=== PATIENT | female | born 1965 | race Caucasian/White ===

== ENCOUNTER 2016-08-28 18:34 | Emergency (ER) | payer MEDICARE ==
[2016-08-28 18:49] VITALS: BP 155/68; PULSE 72; O2SAT 97
[2016-08-28] MEDS ORDERED: Nubain 10 MG/ML IM ONE (19:12)
[2016-08-28] MEDS ORDERED: ZOFRAN ODT 4 MG PO ONE (19:12)
--- NOTE | 2016-08-28 19:16 | ERPHSYRPT ---
- History of Present Illness Time Seen by Provider: 08/28/16 19:11 Source: patient, family Patient Subjective Stated Complaint: migraine headache x7 days Triage Nursing Assessment: patient states she has had migraine x7 days tried using tylenol and bendryll at home as well as continued oxygen use nothing has helped. also has ringing in the ears and her surgar is elevated but she gave herself a shot before coming in and it takes 4 hrs to bring that down. pt alert and orientedx3, pulses equal bilat radius, lung sounds diminished. strength equal bialteral upper extremities and smile symetrical Physician History: CC: headache hx; Headache similar to prior for 7 days not relieved with home treatments. No fever. She has photophobia. No N/T/W. She has DM which is sometimes poorly controlled. No injury. She has used nubain and zofran in the past. Timing/Duration: day(s) (7) Allergies/Adverse Reactions: adhesive Allergy (Intermediate, Verified 02/24/16 15:39) Rash ciprofloxacin HCl [From Cipro] Allergy (Intermediate, Verified 02/24/16 15:39) Rash gatifloxacin [From Tequin] Allergy (Intermediate, Verified 02/24/16 15:39) Rash levofloxacin [From Levaquin] Allergy (Intermediate, Verified 02/24/16 15:39) Rash aspirin Allergy (Verified 02/24/16 15:39) bupropion HCl [From Wellbutrin] Allergy (Verified 02/24/16 15:39) cefaclor [From Ceclor] Allergy (Verified 02/24/16 15:39) ceftibuten dihydrate [From Cedax] Allergy (Verified 02/24/16 15:39) cephalexin monohydrate [From Keflex] Allergy (Verified 02/24/16 15:39) clarithromycin [From Biaxin] Allergy (Verified 02/24/16 15:39) clotrimazole [From Lotrimin] Allergy (Verified 02/24/16 15:39) codeine [Codeine] Allergy (Verified 02/24/16 15:39) erythromycin base [Erythromycin Base] Allergy (Verified 02/24/16 15:39) hydromorphone HCl [From Dilaudid] Allergy (Verified 02/24/16 15:39) ketorolac tromethamine [From Toradol] Allergy (Verified 02/24/16 15:39) loracarbef [From Lorabid] Allergy (Verified 02/24/16 15:39) meperidine HCl [From Demerol] Allergy (Verified 02/24/16 15:39) morphine Allergy (Verified 02/24/16 15:39) Norgestimate-Ethi *RETIRED-07/08/12 [From Ortho Tri-Cyclen (21)] Allergy ( Verified 02/24/16 15:39) Penicillins Allergy (Verified 02/24/16 15:39) prochlorperazine edisylate [From Compazine] Allergy (Verified 02/24/16 15:39) promethazine HCl [From Phenergan] Allergy (Verified 02/24/16 15:39) Sulfa (Sulfonamide Antibiotics) [Sulfa(Sulfonamide Antibiotics)] Allergy ( Verified 02/24/16 15:39) sumatriptan [From Imitrex] Allergy (Verified 02/24/16 15:39) water [From Eucerin] Allergy (Verified 02/24/16 15:39) Home Medications: Albuterol Sulfate [Proair Hfa] 2 puff IH QID 10/10/15 [History] Apixaban [Eliquis] 2.5 mg PO BID 10/10/15 [History] Budesonide/Formoterol Fumarate [Symbicort 160-4.5 Mcg Inhaler] 2 puff IH BID [History] Bumetanide [Bumex] 2 mg PO BID 10/10/15 [History] Cholecalciferol (Vitamin D3) [Vitamin D3] 2,000 unit PO DAILY 10/10/15 [History] Famotidine 40 mg PO BID 10/10/15 [History] Fenofibrate 160 mg PO DAILY 10/10/15 [History] Fluticasone Propionate [Flonase NASAL] 1 gm NS BID 10/10/15 [History] Insulin Regular, Human [Humulin R] 1 unit SQ .PRN 10/10/15 [History] Montelukast Sodium 10 mg PO DAILY 10/10/15 [History] Naloxegol Oxalate [Movantik] 25 mg PO DAILY 10/10/15 [History] Nitroglycerin 0.4 mg Tablet [Nitrostat 0.4 MG Tablet] 0.4 mg SL Q5MIN PRN MR X 3 PRN 10/10/15 [History] PANTOPRAZOLE 40 mg Tablet [Protonix 40MG Tablet] 40 mg PO DAILY 10/10/15 [ History] Polyethylene Glycol 3350 17 gm [Miralax Powder 17GM PACKET] 17 gm PO UD 10/09 [History] Potassium Chloride 20 Meq [Klor-Con 20 MEQ] 20 meq PO DAILY 10/10/15 [History] Rosuvastatin Calcium [Crestor] 40 mg PO HS 10/10/15 [History] Verapamil HCl [Verapamil ER] 240 mg PO DAILY 10/10/15 [History] Divalproex Sodium [Divalproex Sodium ER] 2 tab PO DAILY 03/06/16 [History] Ferrous Sulfate 325 mg [Feosol 325 mg] 1 tab PO DAILY 03/06/16 [History] Levothyroxine Sodium 112 Mcg [Synthroid 112 Mcg] 1 tab PO DAILY 03/06/16 [ History] Macitentan [Opsumit] 1 tab PO DAILY 03/06/16 [History] Vilazodone Hydrochloride [Viibryd] 40 mg PO 03/06/16 [History] Zolpidem Tartrate 10 mg PO HS 03/06/16 [History] Hx Tetanus, Diphtheria Vaccination/Date Given: Yes Hx Influenza Vaccination/Date Given: Yes Hx Pneumococcal Vaccination/Date Given: Yes Immunizations Up to Date: Yes - Review of Systems Constitutional: No Fever, No Chills Eyes: Photophobia, No Vision Changes Ears, Nose, & Throat: No Symptoms Respiratory: No Symptoms Abdominal/Gastrointestinal: Nausea Genitourinary Symptoms: No Symptoms Musculoskeletal: No Symptoms Skin: No Symptoms, No Rash Neurological: Headache, No Focal Weakness, No Parasthesia All Other Systems: Reviewed and Negative - Past Medical History Pertinent Past Medical History: Yes Neurological History: Migraines ENT History: Cataracts Cardiac History: Congestive Heart Failure, High Cholesterol, Hypertension Respiratory History: Asthma, COPD Endocrine Medical History: Diabetes Type II, Hypothyroidism, Other Musculoskeletal History: Arthritis, Fibromyalgia GI Medical History: Esophageal Disorder History: Renal Disease Psycho-Social History: Bipolar, Depression Other Medical History: FIBROMYALGIA, BLIND IN LEFT EYE. BACK PROBLEMS, Sciatica. Renal insuff - Past Surgical History Past Surgical History: Yes Neuro Surgical History: Other Cardiac: Cardiac Catheterization Gastrointestinal: Cholecystectomy Genitourinary: No Pertinent History Musculoskeletal: No Pertinent History, Orthopedic Surgery Female Surgical History: Hysterectomy Other Surgical History: carpal tunnel, trigger finger, tendon on right arm, ulnar nerve surgery, clipped left eye muscle - Social History Smoking Status: Current every day smoker How long have you smoked: 40 Exposure to second hand smoke: Yes Drug Use: none Patient Lives Alone: No - Female History Hx Now: No - Nursing Vital Signs Nursing Vital Signs: Initial Vital Signs Temperature 99.5 F Temperature Source Oral Pulse Rate 72 Respiratory Rate 20 Blood Pressure [Right Arm] 155/68 Pain Intensity 8 - Physical Exam General Appearance: alert, obese Eye Exam: PERRL/EOMI Ears, Nose, Throat Exam: moist mucous membranes Neck Exam: normal inspection, non-tender, supple Respiratory Exam: normal breath sounds Cardiovascular Exam: regular rate/rhythm Gastrointestinal/Abdominal Exam: soft, No tenderness, No distention Extremity Exam: normal inspection, 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 of motion 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, 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, cooperative Motor/Sensory Exam: no motor deficit, no sensory deficit Skin Exam: warm, dry, No rash SpO2 Interpretation: normal SpO2: 97 Oxygen Delivery: Room Air - Course Nursing assessment & vital signs reviewed: Yes Ordered Tests: Active Orders 24 hr Category Date Time Status ACCUCHECK [Accucheck] STAT Care 08/28/16 19:16 Active Medication Summary Discontinued Medications Generic Name Dose Route Start Last Admin Trade Name Bety PRN Reason Stop Dose Admin Nalbuphine HCl 10 mg 08/28/16 19:12 08/28/16 19:21 Nubain 10 Mg/Ml IM 08/28/16 19:13 10 mg STAT ONE Administration Nalbuphine HCl Confirm 08/28/16 19:17 Nubain 10 Mg/Ml Administered 08/28/16 19:18 Dose 10 mg .ROUTE .STK-MED ONE Ondansetron HCl 4 mg 08/28/16 19:12 08/28/16 19:21 Zofran Odt 4 Mg PO 08/28/16 19:13 4 mg STAT ONE Administration Ondansetron HCl Confirm 08/28/16 19:17 Zofran Odt 4 Mg Administered 08/28/16 19:18 Dose 4 mg .ROUTE .STK-MED ONE - Progress Progress Note: 08/28/16 19:16 Will give nubain and zofran as prior. Counseled pt/family regarding: diagnosis, need for follow-up - Departure Time of Disposition: 19:25 Departure Disposition: Home Clinical Impression: Headache Condition: Stable Critical Care Time: No Referrals: DAVE ARZOLA [Primary Care Provider] - Instructions: Headache Additional Instructions: HEADACHE 1. After discharge from the emergency department, you should rest at home in a cool, dark, quiet place for 12-24 hours. 2. If any of the following signs or symptoms are noticed, you should be re- evaluated right away: A. Visual changes B. Stiff Neck C. Change in quality or location of pain D. Fever E. Recurrent vomiting 3. If pain medications were prescribed or given, they may cause drowsiness. No driving tonite. Stay with family. Follow up with Dr arzola.
[2016-08-28] MEDS ORDERED: ZOFRAN ODT 4 MG ONE (19:17)
[2016-08-28] MEDS ORDERED: Nubain 10 MG/ML ONE (19:17)
== END 2016-08-28 19:50 | disposition home or self-care (01) ==
LOC: ED 18:34
DX: R51 Headache (principal); R11.0 Nausea; I50.9 Heart failure, unspecified; I10 Essential (primary) hypertension; E78.00 Pure hypercholesterolemia, unspecified; E11.9 Type 2 diabetes mellitus without complications; E03.9 Hypothyroidism, unspecified; Z79.899 Other long term (current) drug therapy; Z79.84 Long term (current) use of oral hypoglycemic drugs; Z79.4 Long term (current) use of insulin; Z79.01 Long term (current) use of anticoagulants
CPT/HCPCS: 82962; 96372; 99283; 99284; J2300; Q0162

== ENCOUNTER 2016-11-19 15:11 | Emergency (ER) | payer MEDICARE ==
[2016-11-19 15:39] VITALS: BP 106/46; PULSE 85; O2SAT 97
[2016-11-19] MEDS ORDERED: Sodium Chloride 0.9% 1000 ML 1,000 ML IV STA (15:40)
--- NOTE | 2016-11-19 15:47 | ERPHSYRPT ---
- History of Present Illness Time Seen by Provider: 11/19/16 15:33 Source: patient Exam Limitations: no limitations Patient Subjective Stated Complaint: states that she was told to come to the ER from her doctor. had appointment with her kidney doctor today but did not go. states her insulin pump fell off last night and she did not replace. today feels bad. dizzy and just feeling bad. unable to state how long. Triage Nursing Assessment: alert and 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. congested cough. congested lungs. oxygen on at 2LNC daily use. states just feels bad. she was unable to go to her doctor as scheduled since feeling bad. able to ambulate to bed per self. Physician History: 51 year old female with type 2 diabetes on insulin pump and chronic kidney disease reports to ER. She states she had labs on 11/15 and blood sugar was over 700 and sodium was 120, she was unable to consult with her kidney specialist who ordered those labs at the time. she was supposed to see him in the office today but states she felt poorly and was unable to go. she has vague complaints , states she feels dizzy, lightheaded and mildly short of breath. when I asked about her blood sugar management she states she took her pump off yesterday and didn't put it back on because she didn't feel like it nor has she checked her blood sugar today because she didn't feel like doing that either. Timing/Duration: day(s) Associated Symptoms: shortness of breath, weakness, No nausea, No vomiting, No abdominal pain, No diaphoresis, No cough, No chest pain, No fever, No syncope Allergies/Adverse Reactions: adhesive Allergy (Intermediate, Verified 11/19/16 15:40) Rash ciprofloxacin HCl [From Cipro] Allergy (Intermediate, Verified 11/19/16 15:40) Rash gatifloxacin [From Tequin] Allergy (Intermediate, Verified 11/19/16 15:40) Rash levofloxacin [From Levaquin] Allergy (Intermediate, Verified 11/19/16 15:40) Rash aspirin Allergy (Verified 11/19/16 15:40) bupropion HCl [From Wellbutrin] Allergy (Verified 11/19/16 15:40) cefaclor [From Ceclor] Allergy (Verified 11/19/16 15:40) ceftibuten dihydrate [From Cedax] Allergy (Verified 11/19/16 15:40) cephalexin monohydrate [From Keflex] Allergy (Verified 11/19/16 15:40) clarithromycin [From Biaxin] Allergy (Verified 11/19/16 15:40) clotrimazole [From Lotrimin] Allergy (Verified 11/19/16 15:40) codeine [Codeine] Allergy (Verified 11/19/16 15:40) erythromycin base [Erythromycin Base] Allergy (Verified 11/19/16 15:40) hydromorphone HCl [From Dilaudid] Allergy (Verified 11/19/16 15:40) ketorolac tromethamine [From Toradol] Allergy (Verified 11/19/16 15:40) loracarbef [From Lorabid] Allergy (Verified 11/19/16 15:40) meperidine HCl [From Demerol] Allergy (Verified 11/19/16 15:40) morphine Allergy (Verified 11/19/16 15:40) Norgestimate-Ethi *RETIRED-07/08/12 [From Ortho Tri-Cyclen (21)] Allergy ( Verified 11/19/16 15:40) Penicillins Allergy (Verified 11/19/16 15:40) prochlorperazine edisylate [From Compazine] Allergy (Verified 11/19/16 15:40) promethazine HCl [From Phenergan] Allergy (Verified 11/19/16 15:40) Sulfa (Sulfonamide Antibiotics) [Sulfa(Sulfonamide Antibiotics)] Allergy ( Verified 11/19/16 15:40) sumatriptan [From Imitrex] Allergy (Verified 11/19/16 15:40) water [From Eucerin] Allergy (Verified 11/19/16 15:40) Home Medications: Albuterol Sulfate [Proair Hfa] 2 puff IH QID 10/10/15 [History] Apixaban [Eliquis] 2.5 mg PO BID 10/10/15 [History] Budesonide/Formoterol Fumarate [Symbicort 160-4.5 Mcg Inhaler] 2 puff IH BID [History] Bumetanide [Bumex] 2 mg PO BID 10/10/15 [History] Cholecalciferol (Vitamin D3) [Vitamin D3] 2,000 unit PO DAILY 10/10/15 [History] Famotidine 40 mg PO BID 10/10/15 [History] Fenofibrate 160 mg PO DAILY 10/10/15 [History] Fluticasone Propionate [Flonase NASAL] 1 gm NS BID 10/10/15 [History] Insulin Regular, Human [Humulin R] 1 unit SQ .PRN 10/10/15 [History] Montelukast Sodium 10 mg PO DAILY 10/10/15 [History] Naloxegol Oxalate [Movantik] 25 mg PO DAILY 10/10/15 [History] Nitroglycerin 0.4 mg Tablet [Nitrostat 0.4 MG Tablet] 0.4 mg SL Q5MIN PRN MR X 3 PRN 10/10/15 [History] PANTOPRAZOLE 40 mg Tablet [Protonix 40MG Tablet] 40 mg PO DAILY 10/10/15 [ History] Polyethylene Glycol 3350 17 gm [Miralax Powder 17GM PACKET] 17 gm PO UD 10/09 [History] Potassium Chloride 20 Meq [Klor-Con 20 MEQ] 20 meq PO DAILY 10/10/15 [History] Rosuvastatin Calcium [Crestor] 40 mg PO HS 10/10/15 [History] Verapamil HCl [Verapamil ER] 240 mg PO DAILY 10/10/15 [History] Divalproex Sodium [Divalproex Sodium ER] 2 tab PO DAILY 03/06/16 [History] Ferrous Sulfate 325 mg [Feosol 325 mg] 1 tab PO DAILY 03/06/16 [History] Levothyroxine Sodium 112 Mcg [Synthroid 112 Mcg] 1 tab PO DAILY 03/06/16 [ History] Macitentan [Opsumit] 1 tab PO DAILY 03/06/16 [History] Vilazodone Hydrochloride [Viibryd] 40 mg PO DAILY 03/06/16 [History] Zolpidem Tartrate 10 mg PO HS 03/06/16 [History] Hx Tetanus, Diphtheria Vaccination/Date Given: Yes Hx Influenza Vaccination/Date Given: Yes Hx Pneumococcal Vaccination/Date Given: Yes - Review of Systems Constitutional: Weakness, No Fever, No Chills Ears, Nose, & Throat: No Symptoms Respiratory: Dyspnea, No Cough, No Wheezing Cardiac: No Chest Pain, No Edema, No Syncope Abdominal/Gastrointestinal: No Abdominal Pain, No Nausea, No Vomiting, No Diarrhea Genitourinary Symptoms: No Dysuria Skin: No Rash Neurological: Dizziness, No Focal Weakness, No Gait Changes, No Headache, No Sensory Changes, No Speech Changes, No Vertigo Psychological: No Alcohol Abuse, No Drug Abuse All Other Systems: Reviewed and Negative - Past Medical History Pertinent Past Medical History: Yes Neurological History: Migraines ENT History: Cataracts Cardiac History: Congestive Heart Failure, High Cholesterol, Hypertension Respiratory History: Asthma, COPD Endocrine Medical History: Diabetes Type II, Hypothyroidism, Other Musculoskeletal History: Arthritis, Fibromyalgia GI Medical History: Esophageal Disorder History: Renal Disease Psycho-Social History: Bipolar, Depression Other Medical History: FIBROMYALGIA, BLIND IN LEFT EYE. BACK PROBLEMS, Sciatica. Renal insuff - Past Surgical History Past Surgical History: Yes Neuro Surgical History: Other Cardiac: Cardiac Catheterization Gastrointestinal: Cholecystectomy Genitourinary: No Pertinent History Musculoskeletal: No Pertinent History, Orthopedic Surgery Female Surgical History: Hysterectomy Other Surgical History: carpal tunnel, trigger finger, tendon on right arm, ulnar nerve surgery, clipped left eye muscle - Social History Smoking Status: Current every day smoker How long have you smoked: 40 Exposure to second hand smoke: No Drug Use: none Patient Lives Alone: Yes - Female History Hx Now: No - Nursing Vital Signs Nursing Vital Signs: Initial Vital Signs Temperature 98.9 F 11/19/16 15:30 Pulse Rate 85 11/19/16 15:30 Respiratory Rate 22 11/19/16 15:30 Blood Pressure 106/46 11/19/16 15:30 O2 Sat by Pulse Oximetry 97 11/19/16 15:30 Pain Scale Pain Intensity 5 - Physical Exam General Appearance: no apparent distress, alert, obese Respiratory Exam: normal breath sounds, lungs clear, No respiratory distress Cardiovascular Exam: regular rate/rhythm, normal heart sounds, normal peripheral pulses Gastrointestinal/Abdomen Exam: soft, normal bowel sounds, No tenderness, No mass Extremity Exam: normal inspection, 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 of motion, pelvis stable Neurologic Exam: alert, 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, cooperative, normal mood/affect, nml cerebellar function, nml station & gait, sensation nml, No motor deficits Skin Exam: normal color, warm, dry, No rash SpO2 Interpretation: normal SpO2: 97 Oxygen Delivery: Nasal Cannula Ordered Tests: Active Orders 24 hr Category Date Time Status Accucheck STAT Care 11/19/16 15:40 Active Clean Catch Urine Specimen STAT Care 11/19/16 15:47 Active EKG-ER Only STAT Care 11/19/16 15:40 Active IV Insertion STAT Care 11/19/16 15:40 Active Medication Summary Discontinued Medications Generic Name Dose Route Start Last Admin Trade Name Freq PRN Reason Stop Dose Admin Sodium Chloride 1,000 mls @ 999 mls/hr 11/19/16 15:40 Sodium Chloride 0.9% 1000 Ml IV 11/19/16 16:40 .Q1H1M STA - Progress Progress Note: 11/20/16 08:29 late entry, during course of workup patient became agitated, refused blood draw , got dressed and left the department despite nursing attempts to urge her to cooperate - Departure Time of Disposition: 15:30 Departure Disposition: AMA Clinical Impression: Renal insufficiency, Chronic pain syndrome Condition: Stable Critical Care Time: No Referrals: DAVE ARZOLA [Primary Care Provider] -
== END 2016-11-19 15:55 | disposition left against medical advice (07) ==
LOC: ED 15:11
DX: N28.9 Disorder of kidney and ureter, unspecified (principal); G89.4 Chronic pain syndrome; E11.9 Type 2 diabetes mellitus without complications; R53.1 Weakness; R06.00 Dyspnea, unspecified; R42 Dizziness and giddiness; I50.9 Heart failure, unspecified; E78.5 Hyperlipidemia, unspecified; I10 Essential (primary) hypertension; J45.909 Unspecified asthma, uncomplicated; J44.9 Chronic obstructive pulmonary disease, unspecified; Z79.899 Other long term (current) drug therapy
CPT/HCPCS: 99281

== ENCOUNTER 2017-02-05 17:36 | Emergency (ER) | payer MEDICARE ==
[2017-02-05] MEDS ORDERED: Nubain 10 MG/ML IM ONE (18:25)
[2017-02-05] MEDS ORDERED: ZOFRAN ODT 4 MG PO ONE (18:25)
[2017-02-05] MEDS ORDERED: ZOFRAN ODT 4 MG ONE (18:27)
[2017-02-05] MEDS ORDERED: Nubain 10 MG/ML ONE (18:28)
--- NOTE | 2017-02-05 18:30 | ERPHSYRPT ---
- History of Present Illness Time Seen by Provider: 02/05/17 18:22 Source: patient Exam Limitations: no limitations Patient Subjective Stated Complaint: headache starting an hour ago with nausea. took tylenol without relief. Triage Nursing Assessment: to room per w/c. skin w/d, color normal, resp easy. has dark glasses on. holding forehead. a/o times three. Physician History: 51-year-old white female with history of migraines and multiple medical complaints. Arrives with complaint of frontal headache nausea and photophobia symptoms for one hour. She has not had any fevers. Past medical history includes migraines, cataracts, congestive heart failure, hyperlipidemia, high blood pressure, asthma, COPD, diabetes, hypothyroidism, esophageal disorder, arthritis, fibromyalgia, renal disease, bipolar depression Patient states she is blind in her left eye she has chronic back pain and sciatica Past surgical history includes cardiac , catheterization, cholecystectomy, orthopedic surgery, carpal tunnel, ulnar nerve surgery, trigger finger surgery, tendon on the patient's right arm Timing/Duration: today (one hour prior to arrival) Severity: moderate Modifying Factors: Improves With: acetaminophen Associated Symptoms: nausea, other (headache and photophobia), No vomiting, No abdominal pain, No shortness of breath, No heartburn, No diaphoresis, No cough, No chills, No chest pain, No fever, No headaches, No loss of appetite, No malaise, No rash, No syncope, No seizure, No weakness Allergies/Adverse Reactions: adhesive Allergy (Intermediate, Verified 02/05/17 17:51) Rash ciprofloxacin HCl [From Cipro] Allergy (Intermediate, Verified 02/05/17 17:51) Rash gatifloxacin [From Tequin] Allergy (Intermediate, Verified 02/05/17 17:51) Rash levofloxacin [From Levaquin] Allergy (Intermediate, Verified 02/05/17 17:51) Rash aspirin Allergy (Verified 02/05/17 17:51) bupropion HCl [From Wellbutrin] Allergy (Verified 02/05/17 17:51) cefaclor [From Ceclor] Allergy (Verified 02/05/17 17:51) ceftibuten dihydrate [From Cedax] Allergy (Verified 02/05/17 17:51) cephalexin monohydrate [From Keflex] Allergy (Verified 02/05/17 17:51) clarithromycin [From Biaxin] Allergy (Verified 02/05/17 17:51) clotrimazole [From Lotrimin] Allergy (Verified 02/05/17 17:51) codeine [Codeine] Allergy (Verified 02/05/17 17:51) erythromycin base [Erythromycin Base] Allergy (Verified 02/05/17 17:51) hydromorphone HCl [From Dilaudid] Allergy (Verified 02/05/17 17:51) ketorolac tromethamine [From Toradol] Allergy (Verified 02/05/17 17:51) loracarbef [From Lorabid] Allergy (Verified 02/05/17 17:51) meperidine HCl [From Demerol] Allergy (Verified 02/05/17 17:51) morphine Allergy (Verified 02/05/17 17:51) Norgestimate-Ethi *RETIRED-07/08/12 [From Ortho Tri-Cyclen (21)] Allergy ( Verified 02/05/17 17:51) Penicillins Allergy (Verified 02/05/17 17:51) prochlorperazine edisylate [From Compazine] Allergy (Verified 02/05/17 17:51) promethazine HCl [From Phenergan] Allergy (Verified 02/05/17 17:51) Sulfa (Sulfonamide Antibiotics) [Sulfa(Sulfonamide Antibiotics)] Allergy ( Verified 02/05/17 17:51) sumatriptan [From Imitrex] Allergy (Verified 02/05/17 17:51) water [From Eucerin] Allergy (Verified 02/05/17 17:51) Home Medications: Albuterol Sulfate [Proair Hfa] 2 puff IH QID 10/10/15 [History] Apixaban [Eliquis] 2.5 mg PO BID 10/10/15 [History] Budesonide/Formoterol Fumarate [Symbicort 160-4.5 Mcg Inhaler] 2 puff IH BID [History] Bumetanide [Bumex] 2 mg PO BID 10/10/15 [History] Cholecalciferol (Vitamin D3) [Vitamin D3] 2,000 unit PO DAILY 10/10/15 [History] Famotidine 40 mg PO BID 10/10/15 [History] Fenofibrate 160 mg PO DAILY 10/10/15 [History] Fluticasone Propionate [Flonase NASAL] 1 gm NS BID 10/10/15 [History] Insulin Regular, Human [Humulin R] 1 unit SQ .PRN 10/10/15 [History] Montelukast Sodium 10 mg PO DAILY 10/10/15 [History] Naloxegol Oxalate [Movantik] 25 mg PO DAILY 10/10/15 [History] Nitroglycerin 0.4 mg Tablet [Nitrostat 0.4 MG Tablet] 0.4 mg SL Q5MIN PRN MR X 3 PRN 10/10/15 [History] PANTOPRAZOLE 40 mg Tablet [Protonix 40MG Tablet] 40 mg PO DAILY 10/10/15 [ History] Polyethylene Glycol 3350 17 gm [Miralax Powder 17GM PACKET] 17 gm PO UD 10/09 [History] Potassium Chloride 20 Meq [Klor-Con 20 MEQ] 20 meq PO DAILY 10/10/15 [History] Rosuvastatin Calcium [Crestor] 40 mg PO HS 10/10/15 [History] Verapamil HCl [Verapamil ER] 240 mg PO DAILY 10/10/15 [History] Divalproex Sodium [Divalproex Sodium ER] 2 tab PO DAILY 03/06/16 [History] Ferrous Sulfate 325 mg [Feosol 325 mg] 1 tab PO DAILY 03/06/16 [History] Levothyroxine Sodium 112 Mcg [Synthroid 112 Mcg] 1 tab PO DAILY 03/06/16 [ History] Macitentan [Opsumit] 1 tab PO DAILY 03/06/16 [History] Vilazodone Hydrochloride [Viibryd] 40 mg PO DAILY 03/06/16 [History] Zolpidem Tartrate 10 mg PO HS 03/06/16 [History] Hx Tetanus, Diphtheria Vaccination/Date Given: Yes Hx Influenza Vaccination/Date Given: Yes Hx Pneumococcal Vaccination/Date Given: Yes - Review of Systems Constitutional: No Fever, No Chills Eyes: Photophobia, No Discharge, No Eye Pain, No Eye Redness, No Itchy, No Tearing, No Vision Changes, No Double Vision, No Foreign Body Sensation Ears, Nose, & Throat: No Symptoms, No Ear Pain, No Ear Discharge, No Hearing Changes, No Tinnitus, No Nose Pain, No Nose Congestion, No Nose Discharge, No Sinus Drainage, No Epistaxis, No Mouth Pain, No Mouth Swelling, No Loose Teeth, No Throat Pain, No Throat Swelling, No Hoarse, No Painful Swallowing, No Snoring , No Stridor Respiratory: No Cough, No Dyspnea Cardiac: No Chest Pain, No Edema, No Syncope Abdominal/Gastrointestinal: No Abdominal Pain, No Nausea, No Vomiting, No Diarrhea Genitourinary Symptoms: No Dysuria Musculoskeletal: No Back Pain, No Neck Pain Neurological: Headache, No Dizziness, No Focal Weakness, No Gait Changes, No Irritability, No Lethargy, No Paralysis, No Parasthesia, No Seizure, No Sensory Changes, No Speech Changes, No Tics, No Tremors, No Vertigo Psychological: No Symptoms Endocrine: No Symptoms All Other Systems: Reviewed and Negative - Past Medical History Pertinent Past Medical History: Yes Neurological History: Migraines ENT History: Cataracts Cardiac History: Congestive Heart Failure, High Cholesterol, Hypertension Respiratory History: Asthma, COPD Endocrine Medical History: Diabetes Type II, Hypothyroidism, Other Musculoskeletal History: Arthritis, Fibromyalgia GI Medical History: Esophageal Disorder History: Renal Disease Psycho-Social History: Bipolar, Depression Other Medical History: FIBROMYALGIA, BLIND IN LEFT EYE. BACK PROBLEMS, Sciatica. Renal insuff - Past Surgical History Past Surgical History: Yes Neuro Surgical History: Other Cardiac: Cardiac Catheterization Gastrointestinal: Cholecystectomy Genitourinary: No Pertinent History Musculoskeletal: No Pertinent History, Orthopedic Surgery Female Surgical History: Hysterectomy Other Surgical History: carpal tunnel, trigger finger, tendon on right arm, ulnar nerve surgery, clipped left eye muscle - Social History Smoking Status: Current every day smoker How long have you smoked: 41 Exposure to second hand smoke: Yes Drug Use: none Patient Lives Alone: No - Female History Hx Now: No - Nursing Vital Signs Nursing Vital Signs: Initial Vital Signs Temperature 97.9 F 02/05/17 17:48 Pulse Rate 75 02/05/17 17:48 Respiratory Rate 16 02/05/17 17:48 Blood Pressure 161/68 02/05/17 17:48 O2 Sat by Pulse Oximetry 100 02/05/17 17:48 Pain Scale Pain Intensity 6 - Physical Exam General Appearance: mild distress, alert, obese (morbidly obese) Eye Exam: PERRL/EOMI, eyes nml inspection, other (fundi are unremarkable ) Ears, Nose, Throat Exam: normal ENT inspection, TMs normal, pharynx normal, moist mucous membranes Neck Exam: normal inspection, non-tender, supple, full range of motion Respiratory Exam: normal breath sounds, lungs clear, No respiratory distress Cardiovascular Exam: regular rate/rhythm, normal heart sounds, normal peripheral pulses Gastrointestinal/Abdomen Exam: soft, normal bowel sounds, No tenderness, No mass Back Exam: normal inspection, 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 of motion, No CVA tenderness, No vertebral tenderness Extremity Exam: normal inspection, 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 of motion, pelvis stable Neurologic Exam: alert, 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, cooperative, 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 as tested, nml cerebellar function, nml station & gait, sensation nml, No motor deficits, No sensory deficit, No disoriented, No confusion, No agitation, No uncooperative , No intoxicated appearance, No depressed mood/affect, No motor weakness, No facial droop, No slurred speech Skin Exam: normal color, warm, dry, No rash Lymphatic Exam: No adenopathy SpO2 Interpretation: normal (100%) SpO2: 100 Oxygen Delivery: Room Air Ordered Tests: Medication Summary Discontinued Medications Generic Name Dose Route Start Last Admin Trade Name Bety PRN Reason Stop Dose Admin Nalbuphine HCl 10 mg 02/05/17 18:25 02/05/17 18:31 Nubain 10 Mg/Ml IM 02/05/17 18:26 10 mg STAT ONE Administration Nalbuphine HCl Confirm 02/05/17 18:28 Nubain 10 Mg/Ml Administered 02/05/17 18:29 Dose 10 mg .ROUTE .STK-MED ONE Ondansetron HCl 4 mg 02/05/17 18:25 02/05/17 18:31 Zofran Odt 4 Mg PO 02/05/17 18:26 4 mg STAT ONE Administration Ondansetron HCl Confirm 02/05/17 18:27 Zofran Odt 4 Mg Administered 02/05/17 18:28 Dose 4 mg .ROUTE .STK-MED ONE - Progress Progress: improved Progress Note: 02/05/17 18:46 Patient feeling better after the Nubain IM and Zofran by mouth. Wants to go home. Patient states her blood sugars were high at home however she covered this with insulin at home does not want rechecked at this time. Will discharge patient. - Departure Time of Disposition: 18:47 Departure Disposition: Home Clinical Impression: Headache Qualifiers: Headache type: unspecified Headache chronicity pattern: acute headache Intractability: not intractable Qualified Code(s): R51 - Headache Condition: Fair Critical Care Time: No Referrals: DAVE ARZOLA [Primary Care Provider] - Instructions: Headache Additional Instructions: Return home rest in a dark quiet room. Patient are to monitor your blood sugars and cover per sliding scale. Follow-up with your family doctor if symptoms are recurrent. Return for acute distress or for severe symptoms.
[2017-02-05 18:44] VITALS: BP 163/66; PULSE 73
[2017-02-05 18:49] VITALS: O2SAT 100
== END 2017-02-05 19:00 | disposition home or self-care (01) ==
LOC: ED 17:36
DX: R51 Headache (principal); R11.0 Nausea; I10 Essential (primary) hypertension; E78.00 Pure hypercholesterolemia, unspecified; I50.9 Heart failure, unspecified; E11.9 Type 2 diabetes mellitus without complications; J44.9 Chronic obstructive pulmonary disease, unspecified; E03.9 Hypothyroidism, unspecified; Z79.899 Other long term (current) drug therapy; Z79.4 Long term (current) use of insulin
CPT/HCPCS: 96372; 99284; J2300; Q0162

== ENCOUNTER 2017-03-10 20:35 | Emergency (ER) | payer MEDICARE ==
[2017-03-10] MEDS ORDERED: Zofran 4 MG/2 ML VIAL IM ONE (22:05)
[2017-03-10] MEDS ORDERED: Nubain 10 MG/ML IM ONE (22:05)
[2017-03-10] MEDS ORDERED: Zofran 4 MG/2 ML VIAL ONE (22:09)
[2017-03-10] MEDS ORDERED: Nubain 10 MG/ML ONE (22:09)
--- NOTE | 2017-03-10 22:11 | ERPHSYRPT ---
- History of Present Illness Time Seen by Provider: 03/10/17 21:58 Source: patient, family Patient Subjective Stated Complaint: woke up with headache and c/o upper back pain, nausea, photophobia Triage Nursing Assessment: c/o headache with pain radiating from back to front, upper back and mid back pain, no known injury Physician History: CC: headache Hx: 51 y/o patient with frequent headaches. She awoke this AM with headache. It is in her upper back and muscles as well. She has no fever, N/T/W. Recentl kidney funx some improved. Her family member brought [employer] dinner but she was alone at home with her boyfriend. She was upset as niece told her yesterday all of the family would be together but she was not invited. No suicide ideation but holidays area hard. No chest pain. No abd pain. Severity: moderate Allergies/Adverse Reactions: adhesive Allergy (Intermediate, Verified 02/05/17 17:51) Rash ciprofloxacin HCl [From Cipro] Allergy (Intermediate, Verified 02/05/17 17:51) Rash gatifloxacin [From Tequin] Allergy (Intermediate, Verified 02/05/17 17:51) Rash levofloxacin [From Levaquin] Allergy (Intermediate, Verified 02/05/17 17:51) Rash aspirin Allergy (Verified 02/05/17 17:51) bupropion HCl [From Wellbutrin] Allergy (Verified 02/05/17 17:51) cefaclor [From Ceclor] Allergy (Verified 02/05/17 17:51) ceftibuten dihydrate [From Cedax] Allergy (Verified 02/05/17 17:51) cephalexin monohydrate [From Keflex] Allergy (Verified 02/05/17 17:51) clarithromycin [From Biaxin] Allergy (Verified 02/05/17 17:51) clotrimazole [From Lotrimin] Allergy (Verified 02/05/17 17:51) codeine [Codeine] Allergy (Verified 02/05/17 17:51) erythromycin base [Erythromycin Base] Allergy (Verified 02/05/17 17:51) hydromorphone HCl [From Dilaudid] Allergy (Verified 02/05/17 17:51) ketorolac tromethamine [From Toradol] Allergy (Verified 02/05/17 17:51) loracarbef [From Lorabid] Allergy (Verified 02/05/17 17:51) meperidine HCl [From Demerol] Allergy (Verified 02/05/17 17:51) morphine Allergy (Verified 02/05/17 17:51) Norgestimate-Ethi *RETIRED-07/08/12 [From Ortho Tri-Cyclen (21)] Allergy ( Verified 02/05/17 17:51) Penicillins Allergy (Verified 02/05/17 17:51) prochlorperazine edisylate [From Compazine] Allergy (Verified 02/05/17 17:51) promethazine HCl [From Phenergan] Allergy (Verified 02/05/17 17:51) Sulfa (Sulfonamide Antibiotics) [Sulfa(Sulfonamide Antibiotics)] Allergy ( Verified 02/05/17 17:51) sumatriptan [From Imitrex] Allergy (Verified 02/05/17 17:51) water [From Eucerin] Allergy (Verified 02/05/17 17:51) Home Medications: Albuterol Sulfate [Proair Hfa] 2 puff IH QID 10/10/15 [History] Apixaban [Eliquis] 2.5 mg PO BID 10/10/15 [History] Budesonide/Formoterol Fumarate [Symbicort 160-4.5 Mcg Inhaler] 2 puff IH BID [History] Bumetanide [Bumex] 2 mg PO BID 10/10/15 [History] Cholecalciferol (Vitamin D3) [Vitamin D3] 2,000 unit PO DAILY 10/10/15 [History] Famotidine 40 mg PO BID 10/10/15 [History] Fenofibrate 160 mg PO DAILY 10/10/15 [History] Fluticasone Propionate [Flonase NASAL] 1 gm NS BID 10/10/15 [History] Insulin Regular, Human [Humulin R] 1 unit SQ .PRN 10/10/15 [History] Montelukast Sodium 10 mg PO DAILY 10/10/15 [History] Naloxegol Oxalate [Movantik] 25 mg PO DAILY 10/10/15 [History] Nitroglycerin 0.4 mg Tablet [Nitrostat 0.4 MG Tablet] 0.4 mg SL Q5MIN PRN MR X 3 PRN 10/10/15 [History] PANTOPRAZOLE 40 mg Tablet [Protonix 40MG Tablet] 40 mg PO DAILY 10/10/15 [ History] Polyethylene Glycol 3350 17 gm [Miralax Powder 17GM PACKET] 17 gm PO UD 10/09 [History] Potassium Chloride 20 Meq [Klor-Con 20 MEQ] 20 meq PO DAILY 10/10/15 [History] Rosuvastatin Calcium [Crestor] 40 mg PO HS 10/10/15 [History] Verapamil HCl [Verapamil ER] 240 mg PO DAILY 10/10/15 [History] Divalproex Sodium [Divalproex Sodium ER] 2 tab PO DAILY 03/06/16 [History] Ferrous Sulfate 325 mg [Feosol 325 mg] 1 tab PO DAILY 03/06/16 [History] Levothyroxine Sodium 112 Mcg [Synthroid 112 Mcg] 1 tab PO DAILY 03/06/16 [ History] Macitentan [Opsumit] 1 tab PO DAILY 03/06/16 [History] Vilazodone Hydrochloride [Viibryd] 40 mg PO DAILY 03/06/16 [History] Zolpidem Tartrate 10 mg PO HS 03/06/16 [History] Hx Tetanus, Diphtheria Vaccination/Date Given: Yes Hx Influenza Vaccination/Date Given: Yes Hx Pneumococcal Vaccination/Date Given: Yes Immunizations Up to Date: Yes - Review of Systems Constitutional: No Fever, No Chills Respiratory: No Cough, No Dyspnea Cardiac: No Chest Pain Abdominal/Gastrointestinal: No Abdominal Pain, No Vomiting Skin: No Rash Neurological: Headache, No Focal Weakness, No Parasthesia All Other Systems: Reviewed and Negative - Past Medical History Pertinent Past Medical History: Yes Neurological History: Migraines ENT History: Cataracts Cardiac History: Congestive Heart Failure, High Cholesterol, Hypertension Respiratory History: Asthma, COPD, Sleep Apnea Endocrine Medical History: Diabetes Type II, Hypothyroidism, Other Musculoskeletal History: Arthritis, Fibromyalgia GI Medical History: Esophageal Disorder History: Renal Disease Psycho-Social History: Bipolar, Depression Other Medical History: FIBROMYALGIA, BLIND IN LEFT EYE. BACK PROBLEMS, Sciatica. Renal insuff - Past Surgical History Past Surgical History: Yes Neuro Surgical History: Other Cardiac: Cardiac Catheterization Gastrointestinal: Cholecystectomy Genitourinary: No Pertinent History Musculoskeletal: No Pertinent History, Orthopedic Surgery Female Surgical History: Hysterectomy Other Surgical History: carpal tunnel, trigger finger, tendon on right arm, ulnar nerve surgery, clipped left eye muscle - Social History Smoking Status: Current every day smoker How long have you smoked: 41 Exposure to second hand smoke: Yes Drug Use: none Patient Lives Alone: No - Female History Hx Last Menstrual Period: hysterectomy Hx Now: No - Nursing Vital Signs Nursing Vital Signs: Initial Vital Signs Temperature 97.3 F 03/10/17 21:34 Pulse Rate 78 03/10/17 21:34 Respiratory Rate 20 03/10/17 21:34 O2 Sat by Pulse Oximetry 99 03/10/17 21:34 Pain Scale Pain Intensity 8 - Physical Exam General Appearance: alert, obese, other (interactive) Eye Exam: PERRL/EOMI Ears, Nose, Throat Exam: moist mucous membranes Neck Exam: normal inspection, supple Respiratory Exam: normal breath sounds Cardiovascular Exam: regular rate/rhythm Gastrointestinal/Abdomen Exam: soft, No tenderness, No distention Neurologic Exam: alert, 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, cooperative, 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 Some emotional overlay. She has had zofran and nubain in past and requests that. Headache instr given. Counseled pt/family regarding: diagnosis, need for follow-up - Departure Time of Disposition: 22:10 Departure Disposition: Home Clinical Impression: Headache Condition: Stable Critical Care Time: No Referrals: DAVE ARZOLA [Primary Care Provider] - Instructions: Headache Additional Instructions: HEADACHE 1. After discharge from the emergency department, you should rest at home in a cool, dark, quiet place for 12-24 hours. 2. If any of the following signs or symptoms are noticed, you should be re- evaluated right away: A. Visual changes B. Stiff Neck C. Change in quality or location of pain D. Fever E. Recurrent vomiting 3. If pain medications were prescribed or given, they may cause drowsiness. No driving and stay with family tonite.
[2017-03-10 22:32] VITALS: BP 138/70; PULSE 76; O2SAT 98
== END 2017-03-10 22:32 | disposition home or self-care (01) ==
LOC: ED 20:35
DX: R51 Headache (principal); M54.6 Pain in thoracic spine; R11.0 Nausea; H53.149 Visual discomfort, unspecified
CPT/HCPCS: 96372; 99283; J2300; J2405

== ENCOUNTER 2017-04-03 21:14 | Emergency (ER) | payer MEDICARE ==
[2017-04-03 22:49] VITALS: BP 145/75; PULSE 76; O2SAT 95
[2017-04-03] MEDS ORDERED: Sodium Chloride 0.9% 1000 ML 1,000 ML IV STA (23:26)
[2017-04-03] MEDS ORDERED: Zofran 4 MG/2 ML VIAL IV ONE (23:26)
[2017-04-03] MEDS ORDERED: NALBUPHINE HCL 10 MG/1 ML INJECTION IV STA (23:26)
[2017-04-03 23:33] LABS: BASOPHIL % 0.2 % (0.0-0.4); Basophil (Absolute #) 0.01 (0-0.4); Eosinophil % 1.7 % (0.00-5.0); Eosinophil (Absolute #) 0.08 (0-0.5); Granulocyte Absolute (ANC) 2.76 (1.4-6.9); Granulocytes % 57.4 % (36.0-66.0); Hematocrit 39.5 % (35-47); Hemoglobin 13.7 gm/dl (12.0-16.0); Lymphocyte (Absolute #) 1.67 (1.0-4.6); Lymphocytes % 34.7 % (24.0-44.0); Mean Corpuscular Hemoglobin 30.9 pg (26-32); Mean Corpuscular Hgb Concent. 34.7 g/dl (32-36); Mean Platelet Volume 13.3 fl (6-9.5); Monocyte (Absolute #) 0.29 (0.0-1.3); Platelet Count 108 K/mm3 (150-450); Red Blood Count 4.44 M/mm3 (4.1-5.4); White Blood Count 4.8 K/mm3 (4.0-10.5)
--- NOTE | 2017-04-03 23:34 | ERPHSYRPT ---
- History of Present Illness Time Seen by Provider: 04/03/17 23:18 Source: patient Exam Limitations: no limitations Patient Subjective Stated Complaint: 3 day migraine. Triage Nursing Assessment: photosensitivity, nausea, vomiting today. pt states it started in the occiput and radiated to frontal lobe bilaterally. pt states she has 2-4 migraines a week Physician History: Pt developed occipital headaches, radiating to the front as usually x 2-3 / week. She denies recent head injury, no LOC, seizures, but vomited once topday, denies fever, cough, other complaints. She has been seen here just before with the same kind of headaches. Timing/Duration: day(s) (3) Quality: pressure, tightness Head Pain Location: occipital Severity of Pain-Max: severe Severity of Pain-Current: severe Recent Head Trauma: no recent headache/trauma, frequent headaches Modifying Factors: Improves With: exposure to light Associated Symptoms: denies symptoms Previous symptoms: same symptoms as today Allergies/Adverse Reactions: adhesive Allergy (Intermediate, Verified 02/05/17 17:51) Rash ciprofloxacin HCl [From Cipro] Allergy (Intermediate, Verified 02/05/17 17:51) Rash gatifloxacin [From Tequin] Allergy (Intermediate, Verified 02/05/17 17:51) Rash levofloxacin [From Levaquin] Allergy (Intermediate, Verified 02/05/17 17:51) Rash aspirin Allergy (Verified 02/05/17 17:51) bupropion HCl [From Wellbutrin] Allergy (Verified 02/05/17 17:51) cefaclor [From Ceclor] Allergy (Verified 02/05/17 17:51) ceftibuten dihydrate [From Cedax] Allergy (Verified 02/05/17 17:51) cephalexin monohydrate [From Keflex] Allergy (Verified 02/05/17 17:51) clarithromycin [From Biaxin] Allergy (Verified 02/05/17 17:51) clotrimazole [From Lotrimin] Allergy (Verified 02/05/17 17:51) codeine [Codeine] Allergy (Verified 02/05/17 17:51) erythromycin base [Erythromycin Base] Allergy (Verified 02/05/17 17:51) hydromorphone HCl [From Dilaudid] Allergy (Verified 02/05/17 17:51) ketorolac tromethamine [From Toradol] Allergy (Verified 02/05/17 17:51) loracarbef [From Lorabid] Allergy (Verified 02/05/17 17:51) meperidine HCl [From Demerol] Allergy (Verified 02/05/17 17:51) morphine Allergy (Verified 02/05/17 17:51) Norgestimate-Ethi *RETIRED-07/08/12 [From Ortho Tri-Cyclen (21)] Allergy ( Verified 02/05/17 17:51) Penicillins Allergy (Verified 02/05/17 17:51) prochlorperazine edisylate [From Compazine] Allergy (Verified 02/05/17 17:51) promethazine HCl [From Phenergan] Allergy (Verified 02/05/17 17:51) Sulfa (Sulfonamide Antibiotics) [Sulfa(Sulfonamide Antibiotics)] Allergy ( Verified 02/05/17 17:51) sumatriptan [From Imitrex] Allergy (Verified 02/05/17 17:51) water [From Eucerin] Allergy (Verified 02/05/17 17:51) Home Medications: Albuterol Sulfate [Proair Hfa] 2 puff IH QID 10/10/15 [History] Apixaban [Eliquis] 2.5 mg PO BID 10/10/15 [History] Budesonide/Formoterol Fumarate [Symbicort 160-4.5 Mcg Inhaler] 2 puff IH BID [History] Bumetanide [Bumex] 2 mg PO BID 10/10/15 [History] Cholecalciferol (Vitamin D3) [Vitamin D3] 2,000 unit PO DAILY 10/10/15 [History] Famotidine 40 mg PO BID 10/10/15 [History] Fenofibrate 160 mg PO DAILY 10/10/15 [History] Fluticasone Propionate [Flonase NASAL] 1 gm NS BID 10/10/15 [History] Insulin Regular, Human [Humulin R] 1 unit SQ .PRN 10/10/15 [History] Montelukast Sodium 10 mg PO DAILY 10/10/15 [History] Naloxegol Oxalate [Movantik] 25 mg PO DAILY 10/10/15 [History] Nitroglycerin 0.4 mg Tablet [Nitrostat 0.4 MG Tablet] 0.4 mg SL Q5MIN PRN MR X 3 PRN 10/10/15 [History] PANTOPRAZOLE 40 mg Tablet [Protonix 40MG Tablet] 40 mg PO DAILY 10/10/15 [ History] Polyethylene Glycol 3350 17 gm [Miralax Powder 17GM PACKET] 17 gm PO UD 10/09 [History] Potassium Chloride 20 Meq [Klor-Con 20 MEQ] 20 meq PO DAILY 10/10/15 [History] Rosuvastatin Calcium [Crestor] 40 mg PO HS 10/10/15 [History] Verapamil HCl [Verapamil ER] 240 mg PO DAILY 10/10/15 [History] Divalproex Sodium [Divalproex Sodium ER] 2 tab PO DAILY 03/06/16 [History] Ferrous Sulfate 325 mg [Feosol 325 mg] 1 tab PO DAILY 03/06/16 [History] Levothyroxine Sodium 112 Mcg [Synthroid 112 Mcg] 1 tab PO DAILY 03/06/16 [ History] Macitentan [Opsumit] 1 tab PO DAILY 03/06/16 [History] Vilazodone Hydrochloride [Viibryd] 40 mg PO DAILY 03/06/16 [History] Zolpidem Tartrate 10 mg PO HS 03/06/16 [History] Hx Tetanus, Diphtheria Vaccination/Date Given: Yes Hx Influenza Vaccination/Date Given: Yes Hx Pneumococcal Vaccination/Date Given: Yes Immunizations Up to Date: Yes - Review of Systems Constitutional: No Symptoms Abdominal/Gastrointestinal: Nausea, Vomiting Neurological: Headache All Other Systems: Reviewed and Negative - Past Medical History Pertinent Past Medical History: Yes Neurological History: Migraines ENT History: Cataracts Cardiac History: Congestive Heart Failure, High Cholesterol, Hypertension Respiratory History: Asthma, COPD, Sleep Apnea Endocrine Medical History: Diabetes Type II, Hypothyroidism, Other Musculoskeletal History: Arthritis, Fibromyalgia GI Medical History: Esophageal Disorder History: Renal Disease Psycho-Social History: Bipolar, Depression Other Medical History: FIBROMYALGIA, BLIND IN LEFT EYE. BACK PROBLEMS, Sciatica. Renal insuff - Past Surgical History Past Surgical History: Yes Neuro Surgical History: Other Cardiac: Cardiac Catheterization Gastrointestinal: Cholecystectomy Genitourinary: No Pertinent History Musculoskeletal: No Pertinent History, Orthopedic Surgery Female Surgical History: Hysterectomy Other Surgical History: carpal tunnel, trigger finger, tendon on right arm, ulnar nerve surgery, clipped left eye muscle - Social History Smoking Status: Current every day smoker How long have you smoked: 41 Exposure to second hand smoke: Yes Drug Use: none Patient Lives Alone: No - Female History Hx Last Menstrual Period: n/a Hx Now: No - Nursing Vital Signs Nursing Vital Signs: Initial Vital Signs Temperature 98.7 F 04/03/17 22:48 Pulse Rate 76 04/03/17 22:48 Respiratory Rate 18 04/03/17 22:48 Blood Pressure 145/75 04/03/17 22:48 O2 Sat by Pulse Oximetry 95 04/03/17 22:48 Pain Scale Pain Intensity 8 - Physical Exam General Appearance: no apparent distress Eye Exam: PERRL/EOMI, eyes nml inspection Ears, Nose, Throat Exam: normal ENT inspection, pharynx normal Neck Exam: normal inspection, non-tender, supple, full range of motion, No meningismus, No carotid bruit, No JVD Respiratory Exam: normal breath sounds, lungs clear, airway intact, No chest tenderness Cardiovascular Exam: regular rate/rhythm, normal heart sounds, normal peripheral pulses Gastrointestinal/Abdominal Exam: soft, normal bowel sounds, No tenderness, No distention Back Exam: normal inspection, No CVA tenderness Extremity Exam: normal inspection 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, 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, cooperative, 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: 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 speech, PERRL Coordination/Gait Exam: normal gait Motor/Sensory Exam: no motor deficit Skin Exam: normal color, dry, No rash Lymphatic Exam: No adenopathy SpO2 Interpretation: normal SpO2: 95 Oxygen Delivery: Room Air Ordered Tests: Active Orders 24 hr Category Date Time Status IV Insertion STAT Care 04/03/17 23:26 Active CBC W DIFF Stat Lab 04/03/17 23:29 Completed CMP Stat Lab 04/03/17 23:29 Completed Erythrocyte Sedimentation Rate Stat Lab 04/03/17 23:29 Completed Medication Summary Generic Name Dose Route Start Last Admin Trade Name Freq PRN Reason Stop Dose Admin Sodium Chloride 1,000 mls @ 999 mls/hr 04/03/17 23:26 Sodium Chloride 0.9% 1000 Ml IV 04/04/17 00:26 .Q1H1M STA Discontinued Medications Generic Name Dose Route Start Last Admin Trade Name Freq PRN Reason Stop Dose Admin Nalbuphine HCl 10 mg 04/03/17 23:26 Nalbuphine Hcl 10 Mg/1 Ml Injection IV 04/03/17 23:27 STAT STA Ondansetron HCl 4 mg 04/03/17 23:26 Zofran 4 Mg/2 Ml Vial IV 04/03/17 23:27 STAT ONE Lab/Rad Data: Laboratory Result Diagrams 04/03/17 23:29 04/03/17 23:29 Laboratory Results 04/03/17 04/03/17 Range/Units 23:29 23:29 WBC 4.8 (4.0-10.5) K/mm3 RBC 4.44 (4.1-5.4) M/mm3 Hgb 13.7 (12.0-16.0) gm/dl Hct 39.5 (35-47) % MCV 89.0 (78-100) fl MCH 30.9 (26-32) pg MCHC 34.7 (32-36) g/dl RDW 13.0 (11.5-14.0) % Plt Count 108 L (150-450) K/mm3 MPV 13.3 H (6-9.5) fl Gran % 57.4 (36.0-66.0) % Lymphocytes % 34.7 (24.0-44.0) % Monocytes % 6.0 (0.0-12.0) % Eosinophils % 1.7 (0.00-5.0) % Basophils % 0.2 (0.0-0.4) % Basophils # 0.01 (0-0.4) ESR 39 H (0-20) mm/hr Sodium 123 L (136-145) mEq/L Potassium 4.1 (3.5-5.1) mEq/L Chloride 87 L (98-107) mEq/L Carbon Dioxide 23.8 (21-32) mEq/L Anion Gap 16.6 H (5-15) MEQ/L BUN 22 H (9-20) mg/dL Creatinine 1.71 H (0.55-1.30) mg/dl Estimated GFR 34 ML/MIN Glucose 783 H* (70-110) MG/DL Calcium 9.0 (8.5-10.1) mg/dL Total Bilirubin 0.20 (0.2-1.0) mg/dL AST 20 (15-37) U/L ALT 36 (12-78) U/L Alkaline Phosphatase 165 H (46-116) U/L Serum Total Protein 7.6 (6.4-8.2) gm/dL Albumin 3.7 (3.4-5.0) g/dL - Progress Progress: unchanged Air Movement: fair Progress Note: 04/04/17 00:13 Pt announced, that she does not want to wait for being medicated, she wants to leave AMA, I informed her about her blood sugar being very high, needs immediate attention, may be even admission for iv Insulin, she understood, but declined, signed AMA, and wants to continue her Insulin at home. She is alert and oriented x4, mentally fully competent. - Departure Time of Disposition: 00:15 Departure Disposition: AMA Clinical Impression: Hyperglycemia Headache Qualifiers: Headache type: unspecified Headache chronicity pattern: chronic headache Intractability: not intractable Qualified Code(s): R51 - Headache Condition: Stable Critical Care Time: No Referrals: DAVE ARZOLA [Primary Care Provider] - Additional Instructions: Rest x 2-3 days, drink plenty of fluids, return if severe pain, vomiting, lethargy, fever> 102 F!
[2017-04-03 23:41] LABS: ALBUMIN 3.7 g/dL (3.4-5.0); ANION GAP 16.6 MEQ/L (5-15); BILIRUBIN,TOTAL 0.2 mg/dL (0.2-1.0); Carbon Dioxide 23.8 mEq/L (21-32); Creatinine 1 1.71 mg/dl (0.55-1.30); Potassium 4.1 mEq/L (3.5-5.1); Total Protein 7.6 gm/dL (6.4-8.2)
[2017-04-03 23:57] LABS: Erythrocyte Sedimentation Rate 39 mm/hr (0-20)
== END 2017-04-04 00:15 | disposition left against medical advice (07) ==
LOC: ED 21:14
DX: R51 Headache (principal); E11.65 Type 2 diabetes mellitus with hyperglycemia; R11.2 Nausea with vomiting, unspecified; H53.8 Other visual disturbances
CPT/HCPCS: 36415; 80053; 85025; 85652; 99284; J2300

== ENCOUNTER 2017-06-09 20:30 | Emergency (ER) | payer MEDICARE ==
[2017-06-09 21:00] VITALS: O2SAT 98
[2017-06-09] MEDS ORDERED: ZOFRAN ODT 4 MG PO ONE (21:06)
[2017-06-09] MEDS ORDERED: Nubain 10 MG/ML IM ONE (21:06)
--- NOTE | 2017-06-09 21:07 | ERPHSYRPT ---
- History of Present Illness Time Seen by Provider: 06/09/17 21:02 Source: patient, family Exam Limitations: no limitations Patient Subjective Stated Complaint: migraine ESPINOZA since 1500 today. nausea without vomiting Triage Nursing Assessment: alert and oriented. has mask over eyes for comfort. SAMUELS. no vomiting at this time. neuro intact Physician History: The patient is a 47-year-old morbidly obese female with her boyfriend complaining of a typical migraine headache that began at approximately 2:30 PM today. She's been slightly nauseated but not so much currently. She she is photophobic. She denies any numbness or tingling. The headache is more global in nature. She is allergic to many medicines so she has been taking Nubain and Zofran in the past for her migraine headaches when she comes to the ER. Her past medical history significant for migraine headaches, diabetes, congestive heart failure, pulmonary hypertension, fibromyalgia. Timing/Duration: hour(s) (7), gradual onset Quality: pressure Head Pain Location: global Severity of Pain-Max: moderate Severity of Pain-Current: moderate Recent Head Trauma: frequent headaches Modifying Factors: Improves With: exposure to light Associated Symptoms: nausea/vomiting Previous symptoms: same symptoms as today Allergies/Adverse Reactions: adhesive Allergy (Intermediate, Verified 02/05/17 17:51) Rash ciprofloxacin HCl [From Cipro] Allergy (Intermediate, Verified 02/05/17 17:51) Rash gatifloxacin [From Tequin] Allergy (Intermediate, Verified 02/05/17 17:51) Rash levofloxacin [From Levaquin] Allergy (Intermediate, Verified 02/05/17 17:51) Rash aspirin Allergy (Verified 02/05/17 17:51) bupropion HCl [From Wellbutrin] Allergy (Verified 02/05/17 17:51) cefaclor [From Ceclor] Allergy (Verified 02/05/17 17:51) ceftibuten dihydrate [From Cedax] Allergy (Verified 02/05/17 17:51) cephalexin monohydrate [From Keflex] Allergy (Verified 02/05/17 17:51) clarithromycin [From Biaxin] Allergy (Verified 02/05/17 17:51) clotrimazole [From Lotrimin] Allergy (Verified 02/05/17 17:51) codeine [Codeine] Allergy (Verified 02/05/17 17:51) erythromycin base [Erythromycin Base] Allergy (Verified 02/05/17 17:51) hydromorphone HCl [From Dilaudid] Allergy (Verified 02/05/17 17:51) ketorolac tromethamine [From Toradol] Allergy (Verified 02/05/17 17:51) loracarbef [From Lorabid] Allergy (Verified 02/05/17 17:51) meperidine HCl [From Demerol] Allergy (Verified 02/05/17 17:51) morphine Allergy (Verified 02/05/17 17:51) Norgestimate-Ethi *RETIRED-07/08/12 [From Ortho Tri-Cyclen (21)] Allergy ( Verified 02/05/17 17:51) Penicillins Allergy (Verified 02/05/17 17:51) prochlorperazine edisylate [From Compazine] Allergy (Verified 02/05/17 17:51) promethazine HCl [From Phenergan] Allergy (Verified 02/05/17 17:51) Sulfa (Sulfonamide Antibiotics) [Sulfa(Sulfonamide Antibiotics)] Allergy ( Verified 02/05/17 17:51) sumatriptan [From Imitrex] Allergy (Verified 02/05/17 17:51) water [From Eucerin] Allergy (Verified 02/05/17 17:51) Home Medications: Albuterol Sulfate [Proair Hfa] 2 puff IH QID 10/10/15 [History] Apixaban [Eliquis] 2.5 mg PO BID 10/10/15 [History] Budesonide/Formoterol Fumarate [Symbicort 160-4.5 Mcg Inhaler] 2 puff IH BID [History] Bumetanide [Bumex] 2 mg PO BID 10/10/15 [History] Cholecalciferol (Vitamin D3) [Vitamin D3] 2,000 unit PO DAILY 10/10/15 [History] Famotidine 40 mg PO BID 10/10/15 [History] Fenofibrate 160 mg PO DAILY 10/10/15 [History] Fluticasone Propionate [Flonase NASAL] 1 gm NS BID 10/10/15 [History] Insulin Regular, Human [Humulin R] 1 unit SQ .PRN 10/10/15 [History] Montelukast Sodium 10 mg PO DAILY 10/10/15 [History] Naloxegol Oxalate [Movantik] 25 mg PO DAILY 10/10/15 [History] Nitroglycerin 0.4 mg Tablet [Nitrostat 0.4 MG Tablet] 0.4 mg SL Q5MIN PRN MR X 3 PRN 10/10/15 [History] PANTOPRAZOLE 40 mg Tablet [Protonix 40MG Tablet] 40 mg PO DAILY 10/10/15 [ History] Polyethylene Glycol 3350 17 gm [Miralax Powder 17GM PACKET] 17 gm PO UD 10/09 [History] Potassium Chloride 20 Meq [Klor-Con 20 MEQ] 20 meq PO DAILY 10/10/15 [History] Rosuvastatin Calcium [Crestor] 40 mg PO HS 10/10/15 [History] Verapamil HCl [Verapamil ER] 240 mg PO DAILY 10/10/15 [History] Divalproex Sodium [Divalproex Sodium ER] 2 tab PO DAILY 03/06/16 [History] Ferrous Sulfate 325 mg [Feosol 325 mg] 1 tab PO DAILY 03/06/16 [History] Levothyroxine Sodium 112 Mcg [Synthroid 112 Mcg] 1 tab PO DAILY 03/06/16 [ History] Macitentan [Opsumit] 1 tab PO DAILY 03/06/16 [History] Vilazodone Hydrochloride [Viibryd] 40 mg PO DAILY 03/06/16 [History] Zolpidem Tartrate 10 mg PO HS 03/06/16 [History] Hx Tetanus, Diphtheria Vaccination/Date Given: Yes Hx Influenza Vaccination/Date Given: Yes Hx Pneumococcal Vaccination/Date Given: Yes - Review of Systems Constitutional: No Fever, No Chills Eyes: No Symptoms Ears, Nose, & Throat: No Symptoms Respiratory: No Cough, No Dyspnea Cardiac: No Chest Pain, No Edema, No Syncope Abdominal/Gastrointestinal: No Abdominal Pain, No Nausea, No Vomiting, No Diarrhea Genitourinary Symptoms: No Dysuria Musculoskeletal: No Back Pain, No Neck Pain Skin: No Rash Neurological: Headache Psychological: No Symptoms Endocrine: No Symptoms Hematologic/Lymphatic: No Symptoms Immunological/Allergic: No Symptoms All Other Systems: Reviewed and Negative - Past Medical History Pertinent Past Medical History: Yes Neurological History: Migraines ENT History: Cataracts Cardiac History: Congestive Heart Failure, High Cholesterol, Hypertension Respiratory History: Asthma, COPD, Sleep Apnea Endocrine Medical History: Diabetes Type II, Hypothyroidism, Other Musculoskeletal History: Arthritis, Fibromyalgia GI Medical History: Esophageal Disorder History: Renal Disease Psycho-Social History: Bipolar, Depression Other Medical History: FIBROMYALGIA, BLIND IN LEFT EYE. BACK PROBLEMS, Sciatica. Renal insuff - Past Surgical History Past Surgical History: Yes Neuro Surgical History: Other Cardiac: Cardiac Catheterization Gastrointestinal: Cholecystectomy Genitourinary: No Pertinent History Musculoskeletal: No Pertinent History, Orthopedic Surgery Female Surgical History: Hysterectomy Other Surgical History: carpal tunnel, trigger finger, tendon on right arm, ulnar nerve surgery, clipped left eye muscle - Social History Smoking Status: Current every day smoker How long have you smoked: 41 Exposure to second hand smoke: Yes Drug Use: none Patient Lives Alone: No - Female History Hx Now: No - Nursing Vital Signs Nursing Vital Signs: Initial Vital Signs Temperature 98.1 F 06/09/17 20:52 Pulse Rate 71 06/09/17 20:52 Respiratory Rate 20 06/09/17 20:52 Blood Pressure 174/67 06/09/17 20:52 O2 Sat by Pulse Oximetry 98 06/09/17 20:52 Pain Scale Pain Intensity 7 - Physical Exam General Appearance: no apparent distress Eye Exam: PERRL/EOMI, eyes nml inspection, photophobia Ears, Nose, Throat Exam: normal ENT inspection, moist mucous membranes Neck Exam: normal inspection, supple, full range of motion, No meningismus Respiratory Exam: normal breath sounds, lungs clear Cardiovascular Exam: regular rate/rhythm, normal heart sounds Gastrointestinal/Abdominal Exam: soft, No tenderness, No distention Back Exam: normal inspection, 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 of motion 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, 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, 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: normal speech, PERRL, No facial droop Coordination/Gait Exam: normal cerebellar function Motor/Sensory Exam: no motor deficit, no sensory deficit Skin Exam: normal color, warm, dry, No rash SpO2: 98 Oxygen Delivery: Room Air - Progress Progress: improved Air Movement: good Blood Culture(s) Obtained: No Antibiotics given: No Counseled pt/family regarding: diagnosis - Departure Time of Disposition: 21:06 Departure Disposition: Home Clinical Impression: Migraine Condition: Stable Critical Care Time: No Referrals: DAVE ARZOLA [Primary Care Provider] - Additional Instructions: You have a migraine headache. You were given Zofran 4 mg ODT orally and Nubain 10 mg by IM in the ER. Rest this evening and avoid light. Follow-up tomorrow with your doctor.
[2017-06-09] MEDS ORDERED: ZOFRAN ODT 4 MG ONE ×2 (21:11→21:17)
[2017-06-09] MEDS ORDERED: Nubain 10 MG/ML ONE (21:11)
[2017-06-09 21:35] VITALS: BP 139/66; PULSE 70
== END 2017-06-09 21:40 | disposition home or self-care (01) ==
LOC: ED 20:30
DX: G43.909 Migraine, unspecified, not intractable, without status migrainosus (principal); Z79.899 Other long term (current) drug therapy
CPT/HCPCS: 96372; 99284; J2300; Q0162

== ENCOUNTER 2017-08-23 00:01 | Observation (INO) | payer MEDICARE ==
[2017-08-23] MEDS ORDERED: Nitrostat 0.4 MG (ED) SL ONE ×2 (00:14→00:51)
[2017-08-23] MEDS ORDERED: Sodium Chloride 0.9% 1000 ML 1,000 ML IV STA ×2 (00:14→03:19)
--- NOTE | 2017-08-23 00:20 | ERPHSYRPT ---
- History of Present Illness Time Seen by Provider: 08/23/17 00:10 Source: patient Exam Limitations: no limitations Physician History: 52 y/o female with history of PE, DM, CHF and HTN brought in by ambulance for elevated blood glucose, chest pain and shortness of breath. Pt states that she has run out of her insulin today as well as her insulin pump. Finger stick was 400. Pt also states that she has been having chest pain for the last 2 days. Pt describes the pain as pressure, intermittent, 6/10, and pt has not taken any pain meds. Pt has been off her eliquis for the last 6 months. Timing/Duration: today Severity: moderate Associated Symptoms: shortness of breath, chest pain, No abdominal pain Allergies/Adverse Reactions: adhesive Allergy (Intermediate, Verified 08/23/17 01:22) Rash ciprofloxacin HCl [From Cipro] Allergy (Intermediate, Verified 08/23/17:22) Rash gatifloxacin [From Tequin] Allergy (Intermediate, Verified 08/23/17:22) Rash levofloxacin [From Levaquin] Allergy (Intermediate, Verified 08/23/17:22) Rash aspirin Allergy (Verified 08/23/17 01:22) bupropion HCl [From Wellbutrin] Allergy (Verified 08/23/17 01:22) cefaclor [From Ceclor] Allergy (Verified 08/23/17:22) ceftibuten dihydrate [From Cedax] Allergy (Verified 08/23/17:22) cephalexin monohydrate [From Keflex] Allergy (Verified 08/23/17:22) clarithromycin [From Biaxin] Allergy (Verified 08/23/17:22) clotrimazole [From Lotrimin] Allergy (Verified 08/23/17 01:22) codeine [Codeine] Allergy (Verified 08/23/17 01:22) erythromycin base [Erythromycin Base] Allergy (Verified 08/23/17:22) hydromorphone HCl [From Dilaudid] Allergy (Verified 08/23/17 01:22) ketorolac tromethamine [From Toradol] Allergy (Verified 08/23/17 01:22) loracarbef [From Lorabid] Allergy (Verified 08/23/17 01:22) meperidine HCl [From Demerol] Allergy (Verified 08/23/17 01:22) morphine Allergy (Verified 08/23/17 01:22) Norgestimate-Ethi *RETIRED-07/08/12 [From Ortho Tri-Cyclen (21)] Allergy ( Verified 08/23/17 01:22) Penicillins Allergy (Verified 08/23/17 01:22) prochlorperazine edisylate [From Compazine] Allergy (Verified 08/23/17 01:22) promethazine HCl [From Phenergan] Allergy (Verified 08/23/17 01:22) Sulfa (Sulfonamide Antibiotics) [Sulfa(Sulfonamide Antibiotics)] Allergy ( Verified 08/23/17 01:22) sumatriptan [From Imitrex] Allergy (Verified 08/23/17 01:22) water [From Eucerin] Allergy (Verified 08/23/17 01:22) Home Medications: Albuterol Sulfate [Proair Hfa] 2 puff IH QID 10/10/15 [History] Apixaban [Eliquis] 2.5 mg PO BID 10/10/15 [History] Budesonide/Formoterol Fumarate [Symbicort 160-4.5 Mcg Inhaler] 2 puff IH BID [History] Bumetanide [Bumex] 2 mg PO BID 10/10/15 [History] Cholecalciferol (Vitamin D3) [Vitamin D3] 2,000 unit PO DAILY 10/10/15 [History] Famotidine 40 mg PO BID 10/10/15 [History] Fenofibrate 160 mg PO DAILY 10/10/15 [History] Fluticasone Propionate [Flonase NASAL] 1 gm NS BID 10/10/15 [History] Insulin Regular, Human [Humulin R] 1 unit SQ .PRN 10/10/15 [History] Montelukast Sodium 10 mg PO DAILY 10/10/15 [History] Naloxegol Oxalate [Movantik] 25 mg PO DAILY 10/10/15 [History] Nitroglycerin 0.4 mg Tablet [Nitrostat 0.4 MG Tablet] 0.4 mg SL Q5MIN PRN MR X 3 PRN 10/10/15 [History] PANTOPRAZOLE 40 mg Tablet [Protonix 40MG Tablet] 40 mg PO DAILY 10/10/15 [ History] Polyethylene Glycol 3350 17 gm [Miralax Powder 17GM PACKET] 17 gm PO UD 10/09 [History] Potassium Chloride 20 Meq [Klor-Con 20 MEQ] 20 meq PO DAILY 10/10/15 [History] Rosuvastatin Calcium [Crestor] 40 mg PO HS 10/10/15 [History] Verapamil HCl [Verapamil ER] 240 mg PO DAILY 10/10/15 [History] Divalproex Sodium [Divalproex Sodium ER] 2 tab PO DAILY 03/06/16 [History] Ferrous Sulfate 325 mg [Feosol 325 mg] 1 tab PO DAILY 03/06/16 [History] Levothyroxine Sodium 112 Mcg [Synthroid 112 Mcg] 1 tab PO DAILY 03/06/16 [ History] Macitentan [Opsumit] 1 tab PO DAILY 03/06/16 [History] Vilazodone Hydrochloride [Viibryd] 40 mg PO DAILY 03/06/16 [History] Zolpidem Tartrate 10 mg PO HS 03/06/16 [History] Hx Tetanus, Diphtheria Vaccination/Date Given: Yes Hx Influenza Vaccination/Date Given: Yes Hx Pneumococcal Vaccination/Date Given: Yes - Review of Systems Constitutional: No Fever, No Chills Eyes: No Symptoms Ears, Nose, & Throat: No Symptoms Respiratory: Dyspnea, No Cough Cardiac: Chest Pain, Palpitations, No Edema, No Syncope Abdominal/Gastrointestinal: No Abdominal Pain, No Nausea, No Vomiting, No Diarrhea Genitourinary Symptoms: No Dysuria, No Frequency, No Hematuria Musculoskeletal: No Back Pain, No Neck Pain Skin: No Rash Neurological: No Dizziness, No Focal Weakness, No Sensory Changes Psychological: No Symptoms Endocrine: No Symptoms All Other Systems: Reviewed and Negative - Past Medical History Pertinent Past Medical History: Yes Neurological History: Migraines ENT History: Cataracts Cardiac History: Congestive Heart Failure, High Cholesterol, Hypertension Respiratory History: Asthma, COPD, Sleep Apnea Endocrine Medical History: Diabetes Type II, Hypothyroidism, Other Musculoskeletal History: Arthritis, Fibromyalgia GI Medical History: Esophageal Disorder History: Renal Disease Psycho-Social History: Bipolar, Depression Other Medical History: FIBROMYALGIA, BLIND IN LEFT EYE. BACK PROBLEMS, Sciatica. Renal insuff - Past Surgical History Past Surgical History: Yes Neuro Surgical History: Other Cardiac: Cardiac Catheterization Gastrointestinal: Cholecystectomy Genitourinary: No Pertinent History Musculoskeletal: No Pertinent History, Orthopedic Surgery Female Surgical History: Hysterectomy Other Surgical History: carpal tunnel, trigger finger, tendon on right arm, ulnar nerve surgery, clipped left eye muscle - Social History Smoking Status: Current every day smoker How long have you smoked: 41 Exposure to second hand smoke: Yes Drug Use: none Patient Lives Alone: No - Nursing Vital Signs Nursing Vital Signs: Initial Vital Signs Pulse Rate 82 08/23/17 01:01 Respiratory Rate 16 08/23/17 01:01 Blood Pressure 175/81 08/23/17 01:01 O2 Sat by Pulse Oximetry 96 08/23/17 01:01 Pain Scale Pain Intensity 4 - Physical Exam General Appearance: alert, anxiety Eye Exam: PERRL/EOMI, eyes nml inspection Ears, Nose, Throat Exam: normal ENT inspection, TMs normal, pharynx normal, moist mucous membranes Neck Exam: normal inspection, non-tender, supple, full range of motion Respiratory Exam: normal breath sounds, lungs clear, No chest tenderness, No respiratory distress Cardiovascular Exam: regular rate/rhythm, normal heart sounds, normal peripheral pulses Gastrointestinal/Abdomen Exam: soft, normal bowel sounds, No tenderness, No mass Back Exam: normal inspection, 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 of motion, No CVA tenderness, No vertebral tenderness Extremity Exam: normal inspection, 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 of motion, pelvis stable Neurologic Exam: alert, 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, cooperative, normal mood/affect, nml cerebellar function, nml station & gait, sensation nml, No motor deficits Skin Exam: normal color, warm, dry, No rash Lymphatic Exam: No adenopathy - Course Nursing assessment & vital signs reviewed: Yes EKG Interpreted by Me: RATE, NORMAL AXIS, NORMAL INTERVALS, Non-specific ST Changes Ordered Tests: Active Orders 24 hr Category Date Time Status Greeting Card Maker STAT Care 08/23/17 00:15 Active EKG-ER Only STAT Care 08/23/17 00:14 Active IV Insertion STAT Care 08/23/17 00:14 Active CHEST 1 VIEW (PORTABLE) Stat Exams 08/23/17 00:15 Taken CHEST WITH CONTRAST [CT] Stat Exams 08/23/17 01:17 Taken CBC W DIFF Stat Lab 08/23/17 00:40 Completed CK-Creatinine Phosphokinase Stat Lab 08/23/17 00:40 Completed CMP Stat Lab 08/23/17 00:40 Completed D-DIMER QUANTITATION Stat Lab 08/23/17 00:40 Completed HCG QUALITATIVE,SERUM Stat Lab 08/23/17 00:40 Completed NT PRO BNP Stat Lab 08/23/17 00:40 Completed PROTIME WITH INR Stat Lab 08/23/17 00:40 Completed PTT Stat Lab 08/23/17 00:40 Completed TROPONIN Q3H Lab 08/23/17 00:40 Completed TROPONIN Q3H Lab 08/23/17 03:30 Completed TROPONIN Q3H Lab 08/23/17 06:15 Ordered TROPONIN Q3H Lab 08/23/17 09:15 Ordered TROPONIN Q3H Lab 08/23/17 12:15 Ordered VBG [VENOUS BLOOD GAS] Stat Lab 08/23/17 00:40 Completed Medication Summary Discontinued Medications Generic Name Dose Route Start Last Admin Trade Name Freq PRN Reason Stop Dose Admin Hydromorphone HCl 1 mg 08/23/17 01:14 08/23/17 01:38 Hydromorphone 1 Mg/Ml Ampule IV 08/23/17 01:15 1 mg STAT ONE Administration Hydromorphone HCl Confirm 08/23/17 01:35 Dilaudid 2 Mg Injection Administered 08/23/17 01:36 Dose 2 mg .ROUTE .STK-MED ONE Sodium Chloride 1,000 mls @ 999 mls/hr 08/23/17 00:14 08/23/17 00:54 Sodium Chloride 0.9% 1000 Ml IV 08/23/17 01:14 999 mls/hr .Q1H1M STA Administration Sodium Chloride Confirm 08/23/17 00:52 Sodium Chloride 0.9% 1000 Ml Administered 08/23/17 00:53 Dose 1,000 mls @ ud .ROUTE .STK-MED ONE Sodium Chloride 1,000 mls @ 999 mls/hr 08/23/17 03:19 08/23/17 03:21 Sodium Chloride 0.9% 1000 Ml IV 08/23/17 04:19 999 mls/hr .Q1H1M STA Administration Sodium Chloride Confirm 08/23/17 03:35 Sodium Chloride 0.9% 1000 Ml Administered 08/23/17 03:36 Dose 1,000 mls @ ud .ROUTE .STK-MED ONE Insulin Human Regular 10 unit 08/23/17 01:15 08/23/17 01:38 Novolin R IV 08/23/17 01:16 10 unit STAT ONE Administration Insulin Human Regular Confirm 08/23/17 01:35 Novolin R Administered 08/23/17 01:36 Dose 10 unit .ROUTE .STK-MED ONE Insulin Human Regular 6 unit 08/23/17 03:23 08/23/17 03:28 Novolin R IV 08/23/17 03:24 6 unit STAT ONE Administration Insulin Human Regular Confirm 08/23/17 03:35 Novolin R Administered 08/23/17 03:36 Dose 6 unit .ROUTE .STK-MED ONE Nitroglycerin 0.4 mg 08/23/17 00:14 08/23/17 00:54 Nitrostat 0.4 Mg (Ed) SL 08/23/17 00:15 0.4 mg STAT ONE Administration Nitroglycerin Confirm 08/23/17 00:51 Nitrostat 0.4 Mg (Ed) Administered 08/23/17 00:52 Dose 0.4 mg SL .STK-MED ONE Lab/Rad Data: Laboratory Result Diagrams 08/23/17 00:40 08/23/17 00:40 Laboratory Results 08/23/17 08/23/17 08/23/17 Range/Units 03:30 00:40 00:40 WBC (4.0-10.5) K/mm3 RBC (4.1-5.4) M/mm3 Hgb (12.0-16.0) gm/dl Hct (35-47) % MCV (78-100) fl MCH (26-32) pg MCHC (32-36) g/dl RDW (11.5-14.0) % Plt Count (150-450) K/mm3 MPV (6-9.5) fl Gran % (36.0-66.0) % Eos # (Auto) (0-0.5) Absolute Lymphs (auto) (1.0-4.6) Absolute Monos (auto) (0.0-1.3) Lymphocytes % (24.0-44.0) % Monocytes % (0.0-12.0) % Eosinophils % (0.00-5.0) % Basophils % (0.0-0.4) % Absolute Granulocytes (1.4-6.9) Basophils # (0-0.4) PT (9.95-12.35) SECONDS INR (0.8-3.0) APTT (25.3-37.0) SECONDS D-Dimer (215-500) ng/mL pO2/FiO2 Ratio 21.0 % VBG pH 7.39 (7.32-7.42) VBG pCO2 at Pat Temp 39 L (42-55) mm/Hg VBG pO2 at Pat Temp 51 H (25-40) mm/Hg VBG HCO3 23.6 (22-28) meq/L VBG O2 Sat (Florinda) 92.6 L (95-100) VBG Base Excess -1.2 (-2.0-2.0) VBG Hemoglobin 13.7 VBG Carboxyhemoglobin 8.8 H* (0.0-6.9) % T HGB POC Potassium 4.2 (3.5-5.1) Sodium (137-145) mmol/L Potassium (3.5-5.1) mmol/L Chloride (98-107) mmol/L Carbon Dioxide (22-30) mmol/L Anion Gap (5-15) MEQ/L BUN (7-17) mg/dL Creatinine (0.52-1.04) mg/dL Estimated GFR ML/MIN Glucose (74-106) mg/dL Calcium (8.4-10.2) mg/dL Total Bilirubin (0.2-1.3) mg/dL AST (14-36) U/L ALT (0-35) U/L Alkaline Phosphatase (38-126) U/L Creatine Kinase (30-135) U/L Troponin I < 0.012 (0.000-0.034) ng/mL NT-Pro-B Natriuret Pep (0-900) pg/mL Serum Total Protein (6.3-8.2) g/dL Albumin (3.5-5.0) g/dL Serum , Qual NEGATIVE (Negative) 08/23/17 08/23/17 08/23/17 Range/Units 00:40 00:40 00:40 WBC (4.0-10.5) K/mm3 RBC (4.1-5.4) M/mm3 Hgb (12.0-16.0) gm/dl Hct (35-47) % MCV (78-100) fl MCH (26-32) pg MCHC (32-36) g/dl RDW (11.5-14.0) % Plt Count (150-450) K/mm3 MPV (6-9.5) fl Gran % (36.0-66.0) % Eos # (Auto) (0-0.5) Absolute Lymphs (auto) (1.0-4.6) Absolute Monos (auto) (0.0-1.3) Lymphocytes % (24.0-44.0) % Monocytes % (0.0-12.0) % Eosinophils % (0.00-5.0) % Basophils % (0.0-0.4) % Absolute Granulocytes (1.4-6.9) Basophils # (0-0.4) PT 10.8 (9.95-12.35) SECONDS INR 0.93 (0.8-3.0) APTT 26.4 (25.3-37.0) SECONDS D-Dimer 584 H* (215-500) ng/mL pO2/FiO2 Ratio % VBG pH (7.32-7.42) VBG pCO2 at Pat Temp (42-55) mm/Hg VBG pO2 at Pat Temp (25-40) mm/Hg VBG HCO3 (22-28) meq/L VBG O2 Sat (Florinda) (95-100) VBG Base Excess (-2.0-2.0) VBG Hemoglobin VBG Carboxyhemoglobin (0.0-6.9) % T HGB POC Potassium (3.5-5.1) Sodium 130 L (137-145) mmol/L Potassium 4.3 (3.5-5.1) mmol/L Chloride 97 L (98-107) mmol/L Carbon Dioxide 22 (22-30) mmol/L Anion Gap 15.4 H (5-15) MEQ/L BUN 20 H (7-17) mg/dL Creatinine 0.89 (0.52-1.04) mg/dL Estimated GFR > 60.0 ML/MIN Glucose 588 H* (74-106) mg/dL Calcium 9.2 (8.4-10.2) mg/dL Total Bilirubin 0.50 (0.2-1.3) mg/dL AST 18 (14-36) U/L ALT 22 (0-35) U/L Alkaline Phosphatase 146 H (38-126) U/L Creatine Kinase 35 (30-135) U/L Troponin I < 0.012 (0.000-0.034) ng/mL NT-Pro-B Natriuret Pep 390 (0-900) pg/mL Serum Total Protein 7.0 (6.3-8.2) g/dL Albumin 3.6 (3.5-5.0) g/dL Serum , Qual (Negative) 08/23/17 Range/Units 00:40 WBC 3.8 L (4.0-10.5) K/mm3 RBC 4.68 (4.1-5.4) M/mm3 Hgb 14.1 (12.0-16.0) gm/dl Hct 39.7 (35-47) % MCV 84.8 (78-100) fl MCH 30.1 (26-32) pg MCHC 35.5 (32-36) g/dl RDW 13.5 (11.5-14.0) % Plt Count 101 L (150-450) K/mm3 MPV 12.5 H (6-9.5) fl Gran % 42.5 (36.0-66.0) % Eos # (Auto) 0.07 (0-0.5) Absolute Lymphs (auto) 1.84 (1.0-4.6) Absolute Monos (auto) 0.26 (0.0-1.3) Lymphocytes % 48.4 H (24.0-44.0) % Monocytes % 6.8 (0.0-12.0) % Eosinophils % 1.8 (0.00-5.0) % Basophils % 0.5 (0.0-0.4) % Absolute Granulocytes 1.61 (1.4-6.9) Basophils # 0.02 (0-0.4) PT (9.95-12.35) SECONDS INR (0.8-3.0) APTT (25.3-37.0) SECONDS D-Dimer (215-500) ng/mL pO2/FiO2 Ratio % VBG pH (7.32-7.42) VBG pCO2 at Pat Temp (42-55) mm/Hg VBG pO2 at Pat Temp (25-40) mm/Hg VBG HCO3 (22-28) meq/L VBG O2 Sat (Florinda) (95-100) VBG Base Excess (-2.0-2.0) VBG Hemoglobin VBG Carboxyhemoglobin (0.0-6.9) % T HGB POC Potassium (3.5-5.1) Sodium (137-145) mmol/L Potassium (3.5-5.1) mmol/L Chloride (98-107) mmol/L Carbon Dioxide (22-30) mmol/L Anion Gap (5-15) MEQ/L BUN (7-17) mg/dL Creatinine (0.52-1.04) mg/dL Estimated GFR ML/MIN Glucose (74-106) mg/dL Calcium (8.4-10.2) mg/dL Total Bilirubin (0.2-1.3) mg/dL AST (14-36) U/L ALT (0-35) U/L Alkaline Phosphatase (38-126) U/L Creatine Kinase (30-135) U/L Troponin I (0.000-0.034) ng/mL NT-Pro-B Natriuret Pep (0-900) pg/mL Serum Total Protein (6.3-8.2) g/dL Albumin (3.5-5.0) g/dL Serum , Qual (Negative) - Progress Progress: improved Progress Note: 08/23/17 03:20 The patient feels better after receiving dilaudid. The EKG does not show any acute changes and the first troponin is negative. The CXR is within normal limits. Repeat FS is 484 after the patient received NS fluids and 10 units of regular insulin. Pt is not in DKA. Pt will receive an additional liter of fluids and 6 more units of regular insulin. Since patient is complaining of chest pain and has not been compliant on her medications, she will require admission. 08/23/17 04:52 Pt has been admitted to Dr Mo for chest pain. - Departure Time of Disposition: 04:52 Departure Disposition: Observation Clinical Impression: Hyperglycemia Chest pain Qualifiers: Chest pain type: other chest pain Qualified Code(s): R07.89 - Other chest pain ; R07.8 - Other chest pain Condition: Fair Critical Care Time: No Referrals: DAVE ARZOLA [Primary Care Provider] -
[2017-08-23 00:44] LABS: VBG BASE EXCESS -1.2 (-2.0-2.0); VBG HCO3- 23.6 meq/L (22-28); VBG HEMOGLOBIN 13.7; VBG O2 SATURATION 92.6 (95-100); VBG POTASSIUM 4.2 (3.5-5.1); VBG pH 7.39 (7.32-7.42)
[2017-08-23 00:46] LABS: VBG CARBOXYHEMOGLOBIN 8.8 % T HGB (0.0-6.9)
[2017-08-23 00:51] LABS: BASOPHIL % 0.5 % (0.0-0.4); Basophil (Absolute #) 0.02 (0-0.4); Eosinophil % 1.8 % (0.00-5.0); Eosinophil (Absolute #) 0.07 (0-0.5); Granulocyte Absolute (ANC) 1.61 (1.4-6.9); Granulocytes % 42.5 % (36.0-66.0); Hematocrit 39.7 % (35-47); Hemoglobin 14.1 gm/dl (12.0-16.0); Lymphocyte (Absolute #) 1.84 (1.0-4.6); Lymphocytes % 48.4 % (24.0-44.0); Mean Cell Volume 84.8 fl (78-100); Mean Corpuscular Hemoglobin 30.1 pg (26-32); Mean Corpuscular Hgb Concent. 35.5 g/dl (32-36); Mean Platelet Volume 12.5 fl (6-9.5); Monocyte (Absolute #) 0.26 (0.0-1.3); Monocytes % 6.8 % (0.0-12.0); Platelet Count 101 K/mm3 (150-450); Red Blood Count 4.68 M/mm3 (4.1-5.4); Red Cell Distribution Width 13.5 % (11.5-14.0); White Blood Count 3.8 K/mm3 (4.0-10.5)
[2017-08-23] MEDS ORDERED: Sodium Chloride 0.9% 1000 ML 1,000 ML ONE ×2 (00:52→03:35)
[2017-08-23 00:57] LABS: INR 0.93 (0.8-3.0)
[2017-08-23 01:00] LABS: PTT 26.4 SECONDS (25.3-37.0)
[2017-08-23 01:03] LABS: ALBUMIN 3.6 g/dL (3.5-5.0); ALKALINE PHOSPHATASE 146 U/L (38-126); ANION GAP 15.4 MEQ/L (5-15); BLOOD UREA NITROGEN 20 mg/dL (7-17); CHLORIDE 97 mmol/L (98-107); CK-Creatinine Phosphokinase 35 U/L (30-135); Calcium 9.2 mg/dL (8.4-10.2); Carbon Dioxide 22 mmol/L (22-30); Creatinine 1 0.89 mg/dL (0.52-1.04); Potassium 4.3 mmol/L (3.5-5.1); SGOT/AST 18 U/L (14-36); SGPT/ALT 22 U/L (0-35); SODIUM 130 mmol/L (137-145)
[2017-08-23 01:12] LABS: NT PRO BNP 390 pg/mL (0-900)
[2017-08-23] MEDS ORDERED: Hydromorphone 1 mg/ml Ampule IV ONE (01:14)
[2017-08-23 01:15] LABS: Glucose 588 mg/dL (74-106)
[2017-08-23] MEDS ORDERED: NovoLIN R IV ONE ×2 (01:15→03:23)
[2017-08-23] MEDS ORDERED: DILAUDID 2 MG INJECTION ONE (01:35)
[2017-08-23] MEDS ORDERED: NovoLIN R ONE ×2 (01:35→03:35)
[2017-08-23] MEDS ORDERED: Senokot-S Tablet PO PRN (04:53)
[2017-08-23] MEDS ORDERED: MILK OF MAGNESIA 30 ML PO PRN (04:53)
[2017-08-23] MEDS ORDERED: Zofran 4 MG/2 ML VIAL IV PRN (04:53)
[2017-08-23] MEDS ORDERED: MAALOX ES 30 ML UNIT DOSE PO PRN (04:53)
[2017-08-23] MEDS ORDERED: NovoLIN R SQ PRN (04:53)
--- NOTE | 2017-08-23 08:25 | XRAY ---
Indication: Chest pain. Comparison: March 04, 2017. Portable chest again demonstrates normal heart and lungs. Bony thorax intact. No new/acute findings.
[2017-08-23] MEDS ORDERED: PROVENTIL COMMON CANISTER IH PRN (09:51)
[2017-08-23] MEDS ORDERED: ENOXAPARIN SODIUM SQ SCH (12:00)
[2017-08-23] MEDS ORDERED: NovoLOG Insulin SQ ONE ×2 (12:00→17:34)
[2017-08-23] MEDS ORDERED: Nitrostat 0.4 MG Tablet SL PRN (12:07)
[2017-08-23] MEDS ORDERED: INSULIN REGULAR HUMAN 1 UNIT SQ SCH (12:15)
[2017-08-23] MEDS ORDERED: Miralax Powder 17GM PACKET PO SCH (12:15)
[2017-08-23] MEDS ORDERED: MEDICATION INTERVENTION MC SCH ×2 (12:45)
[2017-08-23] MEDS: Singulair 10 MG PO SCH (13:23)
[2017-08-23] MEDS: PLAVIX 75 MG Tablet PO SCH (13:23)
[2017-08-23] MEDS: ISOPTIN S.R. 240 MG PO SCH (13:23)
[2017-08-23] MEDS: Protonix 40MG Tablet PO SCH (13:24)
[2017-08-23] MEDS: Lantus Insulin SQ SCH ×2 (13:24→22:55)
[2017-08-23] MEDS: Klor Con 10 MEQ PO SCH (13:24)
[2017-08-23] MEDS: ELIQUIS 2.5 MG TABLET PO SCH ×2 (13:24→22:54)
[2017-08-23] MEDS: VITAMIN D PO SCH (13:24)
[2017-08-23] MEDS: Pepcid 20 MG PO SCH ×2 (13:24→22:55)
[2017-08-23] MEDS: SYNTHROID 112 MCG PO SCH (13:25)
[2017-08-23] MEDS: NovoLOG Insulin SQ PRN ×3 (13:25→22:57)
[2017-08-23] MEDS: TYLENOL 325 MG PO PRN ×2 (13:28→20:35)
[2017-08-23] MEDS: Glucophage XR 500 MG PO SCH (16:30)
[2017-08-23] MEDS: BUMEX 1 MG PO SCH (16:33)
[2017-08-23] MEDS: NovoLOG Insulin SQ SCH (16:33)
[2017-08-23] MEDS ORDERED: TORAdol 30 mg Injection IM ONE (17:35)
[2017-08-23] MEDS ORDERED: TORAdol 30 mg Injection ONE (17:55)
[2017-08-23] MEDS: Advair Hfa 230/21 Mcg COMMON CANISTER IH SCH (19:43)
[2017-08-23] MEDS ORDERED: ZOCOR 20MG PO SCH (22:00)
[2017-08-23] MEDS ORDERED: NON-FORMULARY ITEM (Bumetanide [Bumex] 2 MG) PO SCH (22:00)
[2017-08-23] MEDS ORDERED: Ambien 10 MG PO SCH (22:00)
[2017-08-23] MEDS ORDERED: NON-FORMULARY ITEM (Famotidine [Famotidine] 40 MG) PO SCH (22:00)
[2017-08-23] MEDS ORDERED: NON-FORMULARY ITEM (Rosuvastatin Calcium [Crestor] 40 MG) PO SCH (22:00)
[2017-08-23] MEDS: Flonase NASAL NS SCH (22:55)
[2017-08-24 06:04] LABS: Risk Ratio 10.4
[2017-08-24] MEDS: Glucophage XR 500 MG PO SCH (07:35)
[2017-08-24] MEDS: NovoLOG Insulin SQ SCH ×2 (07:36→12:19)
[2017-08-24] MEDS: NovoLOG Insulin SQ PRN ×2 (07:36→12:19)
[2017-08-24] MEDS: Advair Hfa 230/21 Mcg COMMON CANISTER IH SCH ×2 (07:50→07:56)
[2017-08-24] MEDS ORDERED: NON-FORMULARY ITEM (Potassium Chloride 20 Meq [Klor-Con 20 Meq] 20 MEQ) PO SCH (10:00)
[2017-08-24] MEDS ORDERED: NON-FORMULARY ITEM (Naloxegol Oxalate [Movantik] 25 MG) PO SCH (10:00)
[2017-08-24] MEDS ORDERED: DIVALPROEX SODIUM PO SCH (10:00)
[2017-08-24] MEDS ORDERED: NON-FORMULARY ITEM (Cholecalciferol (Vitamin D3) [Vitamin D3] 2,000 UNIT) PO SCH (10:00)
[2017-08-24] MEDS ORDERED: NON-FORMULARY ITEM (Vilazodone Hydrochloride [Viibryd] 40 MG) PO SCH (10:00)
[2017-08-24] MEDS ORDERED: FEOSOL 325 MG PO SCH (10:00)
[2017-08-24] MEDS: Flonase NASAL NS SCH (10:45)
[2017-08-24] MEDS: Lantus Insulin SQ SCH (10:45)
[2017-08-24] MEDS: BUMEX 1 MG PO SCH (10:46)
[2017-08-24] MEDS: Klor Con 10 MEQ PO SCH (10:48)
[2017-08-24] MEDS: ELIQUIS 2.5 MG TABLET PO SCH (10:48)
[2017-08-24] MEDS: ISOPTIN S.R. 240 MG PO SCH (10:48)
[2017-08-24] MEDS: Pepcid 20 MG PO SCH (10:49)
[2017-08-24] MEDS: PLAVIX 75 MG Tablet PO SCH (10:49)
[2017-08-24] MEDS: Singulair 10 MG PO SCH (10:49)
[2017-08-24] MEDS: Protonix 40MG Tablet PO SCH (10:49)
[2017-08-24] MEDS: VITAMIN D PO SCH (10:50)
[2017-08-24] MEDS: SYNTHROID 112 MCG PO SCH (10:50)
[2017-08-24] MEDS: TYLENOL 325 MG PO PRN (12:25)
[2017-08-24 12:27] VITALS: BP 146/88; PULSE 89; O2SAT 99
--- NOTE | 2017-08-24 12:37 | PCM.SSS ---
History of Present Illness - Chief Complaint Chief Complaint: Hyperglycemia/R/o Chest pain History of Present Illness: is a 52 year old female. - Review of Systems Constitutional: No Fever, No Chills Eyes: No Symptoms Ears, Nose, & Throat: No Symptoms Respiratory: No Cough, No Short Of Breath Cardiac: Chest Pain, No Edema, No Syncope Abdominal/Gastrointestinal: No Abdominal Pain, No Nausea, No Vomiting, No Diarrhea Genitourinary Symptoms: No Dysuria Musculoskeletal: No Back Pain, No Neck Pain Skin: No Rash Neurological: No Dizziness, No Focal Weakness, No Sensory Changes Psychological: No Symptoms Endocrine: No Symptoms Hematologic/Lymphatic: No Symptoms Immunological/Allergic: No Symptoms Medications & Allergies Home Medications: Home Medication List Albuterol Sulfate [Proair Hfa] 2 puff IH QID 10/10/15 [History Confirmed ] Apixaban [Eliquis] 2.5 mg PO BID 10/10/15 [History Confirmed 08/23/17] Budesonide/Formoterol Fumarate [Symbicort 160-4.5 Mcg Inhaler] 2 puff IH BID [History Confirmed 08/23/17] Bumetanide [Bumex] 2 mg PO BID 10/10/15 [History Confirmed 08/23/17] Cholecalciferol (Vitamin D3) [Vitamin D3] 2,000 unit PO DAILY 10/10/15 [History Confirmed 08/23/17] Famotidine 40 mg PO BID 10/10/15 [History Confirmed 08/23/17] Fenofibrate 160 mg PO DAILY 10/10/15 [History Confirmed 08/23/17] Fluticasone Propionate [Flonase NASAL] 1 gm NS BID 10/10/15 [History Confirmed 08/23/17] Montelukast Sodium 10 mg PO DAILY 10/10/15 [History Confirmed 08/23/17] Naloxegol Oxalate [Movantik] 25 mg PO DAILY 10/10/15 [History Confirmed 08/23/17 ] Nitroglycerin 0.4 mg Tablet [Nitrostat 0.4 MG Tablet] 0.4 mg SL Q5MIN PRN MR X 3 PRN 10/10/15 [History Confirmed 08/23/17] PANTOPRAZOLE 40 mg Tablet [Protonix 40MG Tablet] 40 mg PO DAILY 10/10/15 [ History Confirmed 08/23/17] Polyethylene Glycol 3350 17 gm [Miralax Powder 17GM PACKET] 17 gm PO UD 10/09 [History Confirmed 08/23/17] Potassium Chloride 20 Meq [Klor-Con 20 MEQ] 20 meq PO DAILY 10/10/15 [History Confirmed 08/23/17] Rosuvastatin Calcium [Crestor] 40 mg PO HS 10/10/15 [History Confirmed 08/23/17] Verapamil HCl [Verapamil ER] 240 mg PO DAILY 10/10/15 [History Confirmed ] Divalproex Sodium [Divalproex Sodium ER] 2 tab PO DAILY 03/06/16 [History Confirmed 08/23/17] Ferrous Sulfate 325 mg [Feosol 325 mg] 1 tab PO DAILY 03/06/16 [History Confirmed 08/23/17] Levothyroxine Sodium 112 Mcg [Synthroid 112 Mcg] 1 tab PO DAILY 03/06/16 [ History Confirmed 08/23/17] Macitentan [Opsumit] 1 tab PO DAILY 03/06/16 [History Confirmed 08/23/17] Vilazodone Hydrochloride [Viibryd] 40 mg PO DAILY 03/06/16 [History Confirmed ] Zolpidem Tartrate 10 mg PO HS 03/06/16 [History Confirmed 08/23/17] Insulin Regular, Human [Humulin R U-500] 10 unit SQ .PRN #10 vial 08/24/17 [Rx] Allergies/Adverse Reactions: Allergies Allergy/AdvReac Type Severity Reaction Status Date / Time adhesive Allergy Intermediate Rash Verified 08/23/17 01:22 ciprofloxacin HCl Allergy Intermediate Rash Verified 08/23/17 01:22 [From Cipro] gatifloxacin [From Tequin] Allergy Intermediate Rash Verified 08/23/17 01:22 levofloxacin [From Levaquin] Allergy Intermediate Rash Verified 08/23/17 01:22 aspirin Allergy Verified 08/23/17 01:22 bupropion HCl Allergy Verified 08/23/17 01:22 [From Wellbutrin] cefaclor [From Ceclor] Allergy Verified 08/23/17 01:22 ceftibuten dihydrate Allergy Verified 08/23/17 01:22 [From Cedax] cephalexin monohydrate Allergy Verified 08/23/17 01:22 [From Keflex] clarithromycin [From Biaxin] Allergy Verified 08/23/17 01:22 clotrimazole [From Lotrimin] Allergy Verified 08/23/17 01:22 codeine [Codeine] Allergy Verified 08/23/17 01:22 erythromycin base Allergy Verified 08/23/17 01:22 [Erythromycin Base] hydromorphone HCl Allergy Verified 08/23/17 01:22 [From Dilaudid] ketorolac tromethamine Allergy Verified 08/23/17 01:22 [From Toradol] loracarbef [From Lorabid] Allergy Verified 08/23/17 01:22 meperidine HCl [From Demerol] Allergy Verified 08/23/17 01:22 morphine Allergy Verified 08/23/17 01:22 Norgestimate-Ethi Allergy Verified 08/23/17 01:22 *RETIRED-07/08/12 [From Pin or Peg Tri-Cyclen (21)] Penicillins Allergy Verified 08/23/17 01:22 prochlorperazine edisylate Allergy Verified 08/23/17 01:22 [From Compazine] promethazine HCl Allergy Verified 08/23/17 01:22 [From Phenergan] Sulfa (Sulfonamide Allergy Verified 08/23/17 01:22 Antibiotics) [Sulfa(Sulfonamide Antibiotics)] sumatriptan [From Imitrex] Allergy Verified 08/23/17 01:22 water [From Eucerin] Allergy Verified 08/23/17 01:22 - Past Medical History Past Medical History: Yes Neurological History: Migraines ENT History: Cataracts Cardiac History: Congestive Heart Failure, High Cholesterol, Hypertension Respiratory History: Asthma, COPD, Sleep Apnea Endocrine Medical History: Diabetes Type II, Hypothyroidism, Other Musculoskelatal History: Arthritis, Fibromyalgia GI Medical History: Esophageal Disorder History: Renal Disease Pyscho-Social History: Bipolar, Depression Reproductive Disorders: No Pertinent History Comment: 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 - Female History Hx Last Menstrual Period: hyster Are you now?: No - Past Surgical History Past Surgical History: Yes Neuro Surgical History: Other Cardiac History: Cardiac Catheterization Respiratory Surgery: No Pertinent History GI Surgical History: Cholecystectomy Genitourinary Surgical Hx: No Pertinent History Musculskeletal Surgical Hx: Orthopedic Surgery Female Surgical History: Hysterectomy Other Surgical History: carpal tunnel, trigger finger, tendon on right arm, ulnar nerve surgery, clipped left eye muscle - Social History Smoking Status: Current every day smoker How long have you smoked: 42 years Exposure to second hand smoke: Yes Alcohol: None Drug Use: none - Physical Exam Vital Signs: Vital Signs - 24 hr Temp Pulse Resp BP Pulse Ox 08/24/17 12:25 97.7 F 89 20 146/88 99 08/24/17 07:56 71 16 97 08/24/17 07:20 98 F 84 20 180/84 99 08/24/17 04:00 98.0 F 69 20 145/65 99 08/24/17 03:40 99 08/24/17 00:03 98.0 F 60 20 154/69 99 08/24/17 00:00 95 08/23/17 20:00 98.4 F 58 L 18 133/63 96 08/23/17 16:18 97.8 F 72 20 119/53 98 08/23/17 16:00 98 General Appearance: no apparent distress, alert Neurologic Exam: alert, 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, cooperative, normal mood/affect, nml cerebellar function, nml station & gait, sensation nml, No motor deficits Eye Exam: PERRL/EOMI, eyes nml inspection Ears, Nose, Throat Exam: normal ENT inspection, TMs normal, pharynx normal, moist mucous membranes Neck Exam: normal inspection, non-tender, supple, full range of motion Respiratory Exam: normal breath sounds, lungs clear, No respiratory distress Cardiovascular Exam: regular rate/rhythm, normal heart sounds, normal peripheral pulses Gastrointestinal/Abdomen Exam: soft, normal bowel sounds, No tenderness, No mass Back Exam: normal inspection, 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 of motion, No CVA tenderness, No vertebral tenderness Extremity Exam: normal inspection, 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 of motion, pelvis stable Skin Exam: normal color, warm, dry, No rash Lymphatic Exam: No adenopathy Results - Labs Lab/Micro Results: Accuchecks Date 08/23/17 Date 08/23/17 Time 22:00 Accucheck Value: 319 Accucheck Value: 315 Accucheck Value: 400 Lab Results-Last 24 Hours 08/23/17 08/23/17 08/24/17 Range/Units 12:15 20:30 04:53 Troponin I < 0.012 < 0.012 (0.000-0.034) ng/mL Triglycerides 915 H (30-150) mg/dL Cholesterol 281 H (50-200) mg/dL LDL Cholesterol 102 H (30-100) mg/dL HDL Cholesterol 27 L (40-60) mg/dL Heart Disease Risk Ratio 10.4 08/24/17 Range/Units 04:53 Troponin I < 0.012 (0.000-0.034) ng/mL Triglycerides (30-150) mg/dL Cholesterol (50-200) mg/dL LDL Cholesterol (30-100) mg/dL HDL Cholesterol (40-60) mg/dL Heart Disease Risk Ratio Accuchecks Date 08/23/17 Date 08/23/17 Time 22:00 Accucheck Value: 319 Accucheck Value: 315 Accucheck Value: 400 - Other Procedures and Tests Respiratory Therapy 08/23/17 19:00 Respiratory MDI BID 08/25/17 05:00 EKG ROUTINE 08/26/17 05:00 EKG ROUTINE Assessment/Plan (1) Chest pain Current Visit: Yes Status: Acute Qualifiers: Chest pain type: other chest pain Qualified Code(s): R07.89 - Other chest pain; R07.8 - Other chest pain Code(s): R07.9 - CHEST PAIN, UNSPECIFIED (2) Hyperglycemia Current Visit: Yes Status: Acute Code(s): R73.9 - HYPERGLYCEMIA, UNSPECIFIED (3) Uncontrolled diabetes mellitus Current Visit: No Status: Acute Qualifiers: Diabetes mellitus type: type 2 Diabetes mellitus complication status: with neurologic complications Code(s): E11.65 - TYPE 2 DIABETES MELLITUS WITH HYPERGLYCEMIA Hospital Summary - Hospital Course Hospital Course: Chief Complaint Diagnosis Hyperglycemia/R/o Chest pain Allergies Allergy/AdvReac Type Severity Reaction Status Date / Time adhesive Allergy Intermediate Rash Verified 08/23/17 01:22 ciprofloxacin HCl Allergy Intermediate Rash Verified 08/23/17 01:22 [From Cipro] gatifloxacin [From Tequin] Allergy Intermediate Rash Verified 08/23/17 01:22 levofloxacin [From Levaquin] Allergy Intermediate Rash Verified 08/23/17 01:22 aspirin Allergy Verified 08/23/17 01:22 bupropion HCl Allergy Verified 08/23/17 01:22 [From Wellbutrin] cefaclor [From Ceclor] Allergy Verified 08/23/17 01:22 ceftibuten dihydrate Allergy Verified 08/23/17 01:22 [From Cedax] cephalexin monohydrate Allergy Verified 08/23/17 01:22 [From Keflex] clarithromycin [From Biaxin] Allergy Verified 08/23/17 01:22 clotrimazole [From Lotrimin] Allergy Verified 08/23/17 01:22 codeine [Codeine] Allergy Verified 08/23/17 01:22 erythromycin base Allergy Verified 08/23/17 01:22 [Erythromycin Base] hydromorphone HCl Allergy Verified 08/23/17 01:22 [From Dilaudid] ketorolac tromethamine Allergy Verified 08/23/17 01:22 [From Toradol] loracarbef [From Lorabid] Allergy Verified 08/23/17 01:22 meperidine HCl [From Demerol] Allergy Verified 08/23/17 01:22 morphine Allergy Verified 08/23/17 01:22 Norgestimate-Ethi Allergy Verified 08/23/17 01:22 *RETIRED-07/08/12 [From Ortho Tri-Cyclen (21)] Penicillins Allergy Verified 08/23/17 01:22 prochlorperazine edisylate Allergy Verified 08/23/17 01:22 [From Compazine] promethazine HCl Allergy Verified 08/23/17 01:22 [From Phenergan] Sulfa (Sulfonamide Allergy Verified 08/23/17 01:22 Antibiotics) [Sulfa(Sulfonamide Antibiotics)] sumatriptan [From Imitrex] Allergy Verified 08/23/17 01:22 water [From Eucerin] Allergy Verified 08/23/17 01:22 Vital Signs (Last 24 hours) Temp Pulse Resp BP Pulse Ox 08/24/17 12:25 97.7 F 89 20 146/88 99 08/24/17 07:56 71 16 97 08/24/17 07:20 98 F 84 20 180/84 99 08/24/17 04:00 98.0 F 69 20 145/65 99 08/24/17 03:40 99 08/24/17 00:03 98.0 F 60 20 154/69 99 08/24/17 00:00 95 08/23/17 20:00 98.4 F 58 L 18 133/63 96 08/23/17 16:18 97.8 F 72 20 119/53 98 08/23/17 16:00 98 Current Medications Generic Name Dose Route Start Last Admin Trade Name Freq PRN Reason Stop Dose Admin Acetaminophen 650 mg 08/23/17 04:53 08/24/17 12:25 Tylenol 325 Mg PO 09/22/17 04:52 650 mg Q4H PRN PRN Administration PAIN AND/OR FEVER Al Hydrox/Mg Hydrox/Simethicone 30 ml 08/23/17 04:53 Maalox Es 30 Ml Unit Dose PO 09/22/17 04:52 Q4H PRN PRN INDIGESTION Albuterol Sulfate 2 puff 08/23/17 09:51 Proventil Common Canister IH 09/22/17 09:50 PRN PRN SHORTNESS OF BREATH Apixaban 2.5 mg 08/23/17 12:15 08/24/17 10:48 Eliquis 2.5 Mg Tablet PO 09/22/17 12:14 2.5 mg BID LM Administration Bumetanide 2 mg 08/23/17 17:00 08/24/17 10:46 Bumex 1 Mg PO 09/22/17 16:59 2 mg BID DIURETIC LM Administration Cholecalciferol 2,000 unit 08/23/17 12:30 08/24/17 10:50 Vitamin D PO 09/22/17 12:29 2,000 unit DAILY LM Administration Clopidogrel Bisulfate 75 mg 08/23/17 10:00 08/24/17 10:49 Plavix 75 Mg Tablet PO 09/22/17 09:59 75 mg DAILY LM Administration Divalproex Sodium 1,000 mg 08/23/17 12:30 08/24/17 10:[address] 250 Mg Tab PO 09/22/17 12:29 1,000 mg DAILY LM Administration Famotidine 40 mg 08/23/17 12:30 08/24/17 10:49 Pepcid 20 Mg PO 09/22/17 12:29 40 mg BID LM Administration Ferrous Sulfate 325 mg 08/24/17 10:00 08/24/17 10:48 Feosol 325 Mg PO 09/23/17 09:59 325 mg DAILY LM Administration Fluticasone Propionate 0 gm 08/23/17 22:00 08/24/17 10:45 Flonase Nasal NS 09/22/17 21:59 16 gm BID LM Administration Insulin Aspart 10 unit 08/23/17 16:30 08/24/17 12:19 Novolog Insulin SQ 09/22/17 16:29 10 unit AC LM Administration Insulin Aspart 0 unit 08/23/17 11:54 08/24/17 12:19 Novolog Insulin SQ 09/22/17 11:53 20 unit UD PRN Administration Insulin Glargine 50 unit 08/23/17 12:00 08/24/17 10:45 Lantus Insulin SQ 09/22/17 11:59 50 unit Q12HT LM Administration Levothyroxine Sodium 112 mcg 08/23/17 12:30 08/24/17 10:50 Synthroid 112 Mcg PO 09/22/17 12:29 112 mcg DAILY LM Administration Magnesium Hydroxide 30 - 60 ml 08/23/17 04:53 Milk Of Magnesia 30 Ml PO 09/22/17 04:52 QDP PRN CONSTIPATION Metformin HCl 1,000 mg 08/23/17 17:00 08/24/17 07:35 Glucophage Xr 500 Mg PO 09/22/17 16:59 1,000 mg BIDWMEALS LM Administration Miscellaneous Information 0 each 08/23/17 12:45 Medication Intervention 09/22/17 12:44 .RN TO CHECK WITH [facility] Miscellaneous Information 0 each 08/23/17 12:45 Medication Intervention 09/22/17 12:44 .RN TO CHECK WITH [facility] Montelukast Sodium 10 mg 08/23/17 12:30 08/24/17 10:49 Singulair 10 Mg PO 09/22/17 12:29 10 mg DAILY LM Administration Nitroglycerin 0.4 mg 08/23/17 12:07 Nitrostat 0.4 Mg Tablet SL 09/22/17 12:06 Q5MIN PRN MR X 3 PRN CHEST PAIN Ondansetron HCl 4 mg 08/23/17 04:53 Zofran 4 Mg/2 Ml Vial IV 09/22/17 04:52 Q4H PRN PRN NAUSEA/VOMITING Pantoprazole Sodium 40 mg 08/23/17 12:30 08/24/17 10:49 Protonix 40mg Tablet PO 09/22/17 12:29 40 mg DAILY LM Administration Polyethylene Glycol 17 gm 08/23/17 12:15 Miralax Powder 17gm Packet PO 09/22/17 12:14 UD LM Potassium Chloride 20 meq 08/23/17 12:30 08/24/17 10:48 Klor Con 10 Meq PO 09/22/17 12:29 20 meq DAILY LM Administration Fluticasone/Salmeterol 2 puff 08/23/17 10:00 08/24/17 07:56 Advair Hfa 230/21 Mcg Common Canister* IH 09/22/17 09:59 2 puff BIDRT LM Administration Senna/Docusate Sodium 2 udtab 08/23/17 04:53 Senokot-S Tablet PO 09/22/17 04:52 BID PRN PRN CONSTIPATION Simvastatin 80 mg 08/23/17 22:00 08/23/17 22:56 Zocor 20mg PO 09/22/17 21:59 80 mg HS LM Administration Verapamil HCl 240 mg 08/23/17 12:30 08/24/17 10:48 Isoptin S.R. 240 Mg PO 09/22/17 12:29 240 mg DAILY LM Administration Zolpidem Tartrate 10 mg 08/23/17 22:00 08/23/17 22:54 Ambien 10 Mg PO 09/22/17 21:59 10 mg HS LM Administration Discontinued Medications Generic Name Dose Route Start Last Admin Trade Name Freq PRN Reason Stop Dose Admin Hydromorphone HCl 1 mg 08/23/17 01:14 08/23/17 01:38 Hydromorphone 1 Mg/Ml Ampule IV 08/23/17 01:15 1 mg STAT ONE Administration Hydromorphone HCl Confirm 08/23/17 01:35 Dilaudid 2 Mg Injection Administered 08/23/17 01:36 Dose 2 mg .ROUTE .STK-MED ONE Sodium Chloride 1,000 mls @ 999 mls/hr 08/23/17 00:14 08/23/17 00:54 Sodium Chloride 0.9% 1000 Ml IV 08/23/17 01:14 999 mls/hr .Q1H1M STA Administration Sodium Chloride Confirm 08/23/17 00:52 Sodium Chloride 0.9% 1000 Ml Administered 08/23/17 00:53 Dose 1,000 mls @ ud .ROUTE .STK-MED ONE Sodium Chloride 1,000 mls @ 999 mls/hr 08/23/17 03:19 08/23/17 03:21 Sodium Chloride 0.9% 1000 Ml IV 08/23/17 04:19 999 mls/hr .Q1H1M STA Administration Sodium Chloride Confirm 08/23/17 03:35 Sodium Chloride 0.9% 1000 Ml Administered 08/23/17 03:36 Dose 1,000 mls @ ud .ROUTE .STK-MED ONE Insulin Aspart 20 unit 08/23/17 12:00 08/23/17 13:24 Novolog Insulin SQ 08/23/17 12:01 20 unit NOW ONE Administration Insulin Aspart 20 unit 08/23/17 17:34 Novolog Insulin SQ 08/23/17 17:35 ONCE ONE Insulin Human Regular 10 unit 08/23/17 01:15 08/23/17 01:38 Novolin R IV 08/23/17 01:16 10 unit STAT ONE Administration Insulin Human Regular Confirm 08/23/17 01:35 Novolin R Administered 08/23/17 01:36 Dose 10 unit .ROUTE .STK-MED ONE Insulin Human Regular 6 unit 08/23/17 03:23 08/23/17 03:28 Novolin R IV 08/23/17 03:24 6 unit STAT ONE Administration Insulin Human Regular Confirm 08/23/17 03:35 Novolin R Administered 08/23/17 03:36 Dose 6 unit .ROUTE .STK-MED ONE Insulin Human Regular 0 unit 08/23/17 04:53 08/23/17 08:12 Novolin R SQ 09/22/17 04:52 17 unit PRN PRN Administration HYPERGLYCEMIA Ketorolac Tromethamine 30 mg 08/23/17 17:35 08/23/17 22:57 Toradol 30 Mg Injection IM 08/23/17 17:36 Not Given ONCE ONE Ketorolac Tromethamine Confirm 08/23/17 17:55 Toradol 30 Mg Injection Administered 08/23/17 17:56 Dose 30 mg .ROUTE .STK-MED ONE Nitroglycerin 0.4 mg 08/23/17 00:14 08/23/17 00:54 Nitrostat 0.4 Mg (Ed) SL 08/23/17 00:15 0.4 mg STAT ONE Administration Nitroglycerin Confirm 08/23/17 00:51 Nitrostat 0.4 Mg (Ed) Administered 08/23/17 00:52 Dose 0.4 mg SL .STK-MED ONE Non-Formulary Medication 1 unit 08/23/17 12:15 Insulin Regular, Human [Humulin R U-500] SQ 09/22/17 12:14 .PRN LM Intake & Output (Last 24 hours) 08/22/17 08/23/17 08/24/17 08/25/17 11:59 11:59 11:59 11:59 Intake Total 420 3320 Output Total 1 4200 Balance 419 -880 Weight 114.5 kg 114.8 kg Laboratory Results (Last 24 hours) 08/24/17 08/24/17 08/23/17 04:53 04:53 20:30 Hemoglobin A1c Troponin I < 0.012 < 0.012 Triglycerides 915 H Cholesterol 281 H LDL Cholesterol 102 H HDL Cholesterol 27 L Heart Disease Risk Ratio 10.4 08/23/17 08/23/17 12:15 00:40 Hemoglobin A1c > 14.00 H Troponin I < 0.012 Triglycerides Cholesterol LDL Cholesterol HDL Cholesterol Heart Disease Risk Ratio Orders (Last 24 hours) Category Date Time Status LIPID PROFILE AM.LAB Lab 08/24/17 04:53 Completed TROPONIN Q3H Lab 08/23/17 12:15 Completed TROPONIN Urgent Lab 08/23/17 20:30 Completed TROPONIN Urgent Lab 08/24/17 04:53 Completed TROPONIN Urgent Lab 08/24/17 12:15 Received Apixaban [Eliquis 2.5 mg Tablet] Med 08/23/17 12:15 Active 2.5 mg PO BID Bumetanide 1 mg [Bumex 1 mg] Med 08/23/17 17:00 Active 2 mg PO BID DIURETIC Cholecalciferol (Vitamin D3) [Vitamin D] Med 08/23/17 12:30 Active 2,000 unit PO DAILY Divalproex Sodium 250 mg [Divalproex DR 250 mg Tab] Med 08/23/17 12:30 Active 1,000 mg PO DAILY Famotidine 20 mg [Pepcid 20 MG] Med 08/23/17 12:30 Active 40 mg PO BID Ferrous Sulfate 325 mg [Feosol 325 mg] Med 08/24/17 10:00 Active 325 mg PO DAILY Fluticasone Propionate [Flonase NASAL] Med 08/23/17 22:00 Active 0 gm NS BID Insulin Aspart [NovoLOG Insulin] Med 08/23/17 11:54 Active 0 unit SQ UD PRN Insulin Aspart [NovoLOG Insulin] Med 08/23/17 16:30 Active 10 unit SQ AC Insulin Aspart [NovoLOG Insulin] Med 08/23/17 12:00 Discontinued 20 unit SQ NOW ONE Insulin Aspart [NovoLOG Insulin] Med 08/23/17 17:34 Discontinued 20 unit SQ ONCE ONE Insulin Glargine [Lantus Insulin] Med 08/23/17 12:00 Active 50 unit SQ Q12HT Insulin Regular, Human [Humulin R U-500] Med 08/23/17 12:15 Discontinued 1 unit SQ .PRN KETOROLAC trometh 30 mg Inj [TORAdol 30 mg Injection Med 08/23/17 17:35 Discontinued ] 30 mg IM ONCE ONE Levothyroxine Sodium 112 Mcg [Synthroid 112 Mcg] Med 08/23/17 12:30 Active 112 mcg PO DAILY Medication Intervention Med 08/23/17 12:45 Active 0 each MC .RN TO CHECK WITH PA Medication Intervention Med 08/23/17 12:45 Active 0 each MC .RN TO CHECK WITH PA Metformin HCl Xr 500 mg [Glucophage XR 500 MG] Med 08/23/17 17:00 Active 1,000 mg PO BIDWMEALS Montelukast Sodium 10 mg [Singulair 10 MG] Med 08/23/17 12:30 Active 10 mg PO DAILY Nitroglycerin 0.4 mg Tablet [Nitrostat 0.4 MG Tablet Med 08/23/17 12:07 Active ] 0.4 mg SL Q5MIN PRN MR X 3 PRN PANTOPRAZOLE 40 mg Tablet [Protonix 40MG Tablet] Med 08/23/17 12:30 Active 40 mg PO DAILY Polyethylene Glycol 3350 17 gm [Miralax Powder 17GM Med 08/23/17 12:15 Active PACKET] 17 gm PO UD Potassium Chloride 10 Meq Tab* [Klor Con 10 MEQ] Med 08/23/17 12:30 Active 20 meq PO DAILY Simvastatin 20Mg [Zocor 20Mg] Med 08/23/17 22:00 Active 80 mg PO HS Verapamil HCl Sr 240 mg [Isoptin S.r. 240 mg] Med 08/23/17 12:30 Active 240 mg PO DAILY Zolpidem Tartrate 10 mg [Ambien 10 MG] Med 08/23/17 22:00 Active 10 mg PO HS EKG ROUTINE RT 08/24/17 05:00 Completed EKG ROUTINE RT 08/25/17 05:00 Active EKG ROUTINE RT 08/26/17 05:00 Active Respiratory MDI BID RT 08/23/17 19:00 Active Patient Care Notes (Last 24 hours) 08/23/17 18:07 Nursing Note by Lyubov Devlin called dr. albaro albrecht d/t pt allergy to toradol. dr. albrecht orders to just give tylenol as ordered Initialized on 08/23/17 18:07 - END OF NOTE 08/23/17 18:02 Nursing Note by Alissa Summers toradol ordered and drawn up to give to pt she reported that she was allergic to it and was not given. med was discarded and charge nurse Maribell Devlin rn notified. one time only coverage of novalog 20 units given per order Initialized on 08/23/17 18:02 - END OF NOTE 08/23/17 17:38 Nursing Note by Lyubov Devlin reported to dr albrecht. new order obtained for an extra 20 units novolog sq. new order obtained for toradol 30mg iM x1 to treat pt headache Initialized on 08/23/17 17:38 - END OF NOTE 08/23/17 16:48 Nursing Note by Lyubov Devlin pt c/o "migraine" that tylenol is just not doing anything for. pt states she wants "nubain and zofran because that's what she gets when she comes to the emergency room". dr. albaro albrecht [email or web address] at this time Initialized on 08/23/17 16:48 - END OF NOTE 08/23/17 13:54 BEATER OUT Note by Rosy Ga pt took a shower at this time. Initialized on 08/23/17 13:54 - END OF NOTE 08/23/17 12:50 Case Management Note by Flora Yun DISCHARGE PLAN REVIEWED WITH PATIENT, UNABLE TO REACH LAY CAREGIVER. PT NORMALLY LIVES AT HOME WITH SIGNIFICANT OTHER, HAS A WALKER, WHEELCHAIR, INSULIN PUMP AND AN INSULIN TESTING DEVISE, WELL CPAP THAT SHE RECIEVED FROM [facility] AND IS SERVICED BY THEM. SHE HAS INSURANCE FOR HER MEDICATIONS AND HAS DELIVERY FROM [facility]. SHE STATES SHE HAS TROUBLE WITH TRANSPORTATION. ADVISED THAT HER INSURANCE DOES HAVE TRANSPORTATION, BUT THAT SHE WOULD HAVE TO CALL AND ARRANGE FOR IT. SHE HAS NOT GOTTEN HER MEDICATIONS FILLED BECAUSE SHE HAS NOT F/U WITH HER DOCTORS IN [place] IN A SUBSTANTIAL AMOUNT OF TIME, THEY REFUSE TO REFILL UNTIL SHE COMES TO AN APPOINTMENT. DENIES NEED FOR ANY OTHER SERVICE OR NEED AT HOME. [employer] PAPERS EXPLAINED, SIGNED AND COPY GIVEN TO PATIENT WITH ORIGINALS ON THE CHART. PATIENT IS AWARE THAT HER INSURANCE WILL COVER A 48 HOUR STAY AT THIS TIME SHE DOES NOT MEET INPATIENT CRITERIA. WILL CONTINUE TO MONITOR FOR ALL D/C NEEDS. Initialized on 08/23/17 12:50 - END OF NOTE - Vitals & Intake/Output Vital Signs: Vital Signs Temperature 97.7 F 08/24/17 12:25 Pulse Rate 89 08/24/17 12:25 Respiratory Rate 20 08/24/17 12:25 Blood Pressure 146/88 08/24/17 12:25 O2 Sat by Pulse Oximetry 99 08/24/17 12:25 Intake & Output: Intake & Output 08/22/17 08/23/17 08/24/17 08/25/17 11:59 11:59 11:59 11:59 Intake Total 420 3320 Output Total 1 4200 Balance 419 -880 Weight 114.5 kg 114.8 kg - Lab Result Diagrams: 08/23/17 00:40 08/23/17 00:40 Lab Results-Last 24 Hrs: Accuchecks Date 08/23/17 Date 08/23/17 Time 22:00 Accucheck Value: 319 Accucheck Value: 315 Accucheck Value: 400 Lab Results-Last 24 Hours 08/23/17 08/23/17 08/24/17 Range/Units 12:15 20:30 04:53 Troponin I < 0.012 < 0.012 (0.000-0.034) ng/mL Triglycerides 915 H (30-150) mg/dL Cholesterol 281 H (50-200) mg/dL LDL Cholesterol 102 H (30-100) mg/dL HDL Cholesterol 27 L (40-60) mg/dL Heart Disease Risk Ratio 10.4 08/24/17 Range/Units 04:53 Troponin I < 0.012 (0.000-0.034) ng/mL Triglycerides (30-150) mg/dL Cholesterol (50-200) mg/dL LDL Cholesterol (30-100) mg/dL HDL Cholesterol (40-60) mg/dL Heart Disease Risk Ratio Micro Results-Entire Visit: Accuchecks Date 08/23/17 Date 08/23/17 Time 22:00 Accucheck Value: 319 Accucheck Value: 315 Accucheck Value: 400 - Procedures and Test Procedures and Tests throughout Hospitalization: Therapy Orders & Screens 08/23/17 06:43 RT Screen per Nursing Assess ONCE Comment: Protocol Order Physician Instructions: Greater than 3 points order RT Admission Screen Reason For Exam: Triggered on Admission Diagnosis: Hyperglycemia/R/o Chest pain Diagnosis: Hyperglycemia/R/o Chest pain Pneumonia: No Home O2: No Asthma: Yes CHF: Yes Home CPAP/BIPAP: Yes Home Nebs/MDI: No Total Points: 12 Smoking Cessation Education ONCE Comment: Diagnosis: Hyperglycemia/R/o Chest pain Smoking Status: Current every day smoker How long have you smoked: 42 years Have you smoked in the past 12 months: Yes Approximately how many cigarettes per day: 18 Do you dip or chew tobacco: No 08/23/17 08:21 EKG ROUTINE Comment: Diagnosis: chest pain 08/23/17 09:51 Respiratory MDI PRN Comment: ALB MDI PRN Diagnosis: Hyperglycemia/R/o Chest pain 08/23/17 19:00 Respiratory MDI BID Comment: Diagnosis: Hyperglycemia/R/o Chest pain 08/24/17 05:00 EKG ROUTINE Comment: Diagnosis: chest pain 08/25/17 05:00 EKG ROUTINE Comment: Diagnosis: chest pain 08/26/17 05:00 EKG ROUTINE Comment: Diagnosis: chest pain - Discharge Discharge Date: 08/24/17 Disposition: Home, Self-Care Condition: Stable Prescriptions: Continue Polyethylene Glycol 3350 17 gm [Miralax Powder 17GM PACKET] 17 gm PO UD Verapamil HCl [Verapamil ER] 240 mg PO DAILY Nitroglycerin 0.4 mg Tablet [Nitrostat 0.4 MG Tablet] 0.4 mg SL Q5MIN PRN MR X 3 PRN PRN Reason: Chest Pain Cholecalciferol (Vitamin D3) [Vitamin D3] 2,000 unit PO DAILY Bumetanide [Bumex] 2 mg PO BID Naloxegol Oxalate [Movantik] 25 mg PO DAILY Montelukast Sodium 10 mg PO DAILY Famotidine 40 mg PO BID Budesonide/Formoterol Fumarate [Symbicort 160-4.5 Mcg Inhaler] 2 puff IH BID Fenofibrate 160 mg PO DAILY Fluticasone Propionate [Flonase NASAL] 1 gm NS BID Potassium Chloride 20 Meq [Klor-Con 20 MEQ] 20 meq PO DAILY PANTOPRAZOLE 40 mg Tablet [Protonix 40MG Tablet] 40 mg PO DAILY Rosuvastatin Calcium [Crestor] 40 mg PO HS Apixaban [Eliquis] 2.5 mg PO BID Albuterol Sulfate [Proair Hfa] 2 puff IH QID Macitentan [Opsumit] 1 tab PO DAILY Divalproex Sodium [Divalproex Sodium ER] 2 tab PO DAILY Ferrous Sulfate 325 mg [Feosol 325 mg] 1 tab PO DAILY Levothyroxine Sodium 112 Mcg [Synthroid 112 Mcg] 1 tab PO DAILY Zolpidem Tartrate 10 mg PO HS Vilazodone Hydrochloride [Viibryd] 40 mg PO DAILY Changed Insulin Regular, Human [Humulin R U-500] 10 unit SQ .PRN #10 vial Follow up with: DAVE ARZOLA [Primary Care Provider] - Call for Appointment
--- NOTE | 2017-08-25 10:57 | HP ---
CHIEF COMPLAINT: A 52 year-old individual who is legally blind in left eye presented to the emergency room with uncontrolled diabetes. Apparently she had insulin pump ran out of insulin and has not been able to get it and presented to the emergency room with uncontrolled diabetes and chest pains. HISTORY OF PRESENT ILLNESS: The patient has history of diabetes currently on insulin and also has a history of deep venous thrombosis, pulmonary embolism, chronic obstructive pulmonary disease, some kidney disease and congestive heart failure, reflux disease, hyperlipidemia, anemia and hypothyroidism for which she takes medications. CURRENT MEDICATIONS: Albuterol 2 puffs four times a day, Eliquis 2.5 mg b.i.d., Symbicort, Bumex 2 mg b.i.d., cholecalciferol 2,000 b.i.d., Divalproex 2 tablets daily, famotidine 40 mg b.i.d. and Fenofibrate, ferrous sulfate, Flonase, insulin pump, levothyroxine 112 units and Movantik, naloxone, Protonix 40, polyethylene glycol, potassium, Crestor 40 daily, Verapamil 240 daily, Viibryd 40 daily, Ambien 10 daily. She takes allergy medications and medication for reflux. ALLERGIES: PENICILLIN, SULFA, ASPIRIN, CEFACLOR, CEPHALEXIN, MEPERIDINE, MORPHINE, PROMETHAZINE, CLARITHROMYCIN. SOCIAL HISTORY: Denies smoking or alcohol use, noncontributory. REVIEW OF SYSTEMS: Again the patient is insulin dependent diabetic insulin requiring however is out of insulin at this time. She does history of some coronary artery disease and history of cardiac catheterization and stress test. Chronic obstructive pulmonary disease and has been on bronchodilator. History of hyperlipidemia on medications for that. She also has cardiovascular history of hypertension presently on medication for that. Positive for allergies for which she takes medications. PHYSICAL EXAMINATION: The patient appears reasonably comfortable however sugar is running pretty high. Her vital signs blood pressure 175/80, pulse 82. Afebrile. Oxygen saturation 96%. HEENT: Pupils reactive. The patient is legally blind on left side. NECK: No JVD. No thyromegaly. No lymphadenopathy. CHEST: Fair air entry bilaterally. CVS: Heart sounds normal. ABDOMEN: Soft, nontender. Bowel sounds present. EXTREMITIES: No edema. Pedal pulses present. NEUROLOGIC: Alert with no focal deficit. LAB DATA AND TESTS: The patient has a pH of 7.3, pCO2 39, pO2 51. Sodium 130, potassium 4.3, chloride 97. The patient had a BUN 20, creatinine 0.8, sugar 588. Alkaline phosphatase 146. CPK normal. CBC white blood cell count 3.8, hemoglobin 14.1, hematocrit 39.7 and MCH of 30.1. ASSESSMENT AND PLAN: 1) Insulin requiring diabetes uncontrolled because of not taking insulin. The patient has run out of insulin, too. The patient will be put on Lantus and Humalog coverage and close monitoring will be done. She may need some fluids also. 2) Cautious hydration. 3) History of coronary artery disease. No major stenting or anything. She is on medications. Will check her troponin and myoglobin. 4) Hyperlipidemia. Not taking medications. 5) Chronic obstructive pulmonary disease. Continue medications. The patient was put on deep venous thrombosis prophylaxis. The patient's blood sugar will be controlled in the next day or so and after that the patient will be discharged home for outpatient follow up.
--- NOTE | 2017-08-25 15:18 | XRAY ---
Indication: Chest pain, short of breath, and elevated d-dimer. Multiple contiguous axial images obtained through the chest using 80 cc Isovue 370 contrast and PE protocol. Comparison: CT chest without contrast April 26, 2016. There is satisfactory opacification of the pulmonary arteries to include the lobar and segmental branches. No filling defect or pulmonary embolus. Heart is not enlarged. Aorta is normal in course and caliber. No pathologic mediastinal/hilar lymphadenopathy. New small hiatal hernia. Examination of the lung parenchyma demonstrates minimal bilateral dependent atelectasis. No suspicious pulmonary mass, infiltrate, or effusion. Bony thorax intact again with mild degenerative changes throughout the spine. Limited upper abdomen again demonstrates fatty cirrhotic liver and 17 cm splenomegaly. Impression: 1. Negative pulmonary embolus. 2. No acute cardiopulmonary abnormalities. 3. New small hiatal hernia. 4. Again incidental fatty cirrhotic liver and splenomegaly. Comment: Preliminary interpretation was made by [facility]. No discrepancy. CTDI 23.69
== END 2017-08-24 13:40 | disposition home or self-care (01) ==
LOC: ED 00:01 → MED SURG 05:49
PROVIDERS: ADMIT Internal Medicine; ATTEND General Practice
DX: R07.89 Other chest pain (principal); R73.9 Hyperglycemia, unspecified; E11.65 Type 2 diabetes mellitus with hyperglycemia; Z79.4 Long term (current) use of insulin; J44.9 Chronic obstructive pulmonary disease, unspecified; I50.9 Heart failure, unspecified; K21.9 Gastro-esophageal reflux disease without esophagitis; I25.10 Atherosclerotic heart disease of native coronary artery without angina pectoris; E78.5 Hyperlipidemia, unspecified; E03.9 Hypothyroidism, unspecified; Z79.01 Long term (current) use of anticoagulants; Z79.899 Other long term (current) drug therapy; Z86.711 Personal history of pulmonary embolism; I10 Essential (primary) hypertension; J45.909 Unspecified asthma, uncomplicated; G47.30 Sleep apnea, unspecified; M79.7 Fibromyalgia; M19.90 Unspecified osteoarthritis, unspecified site; F31.9 Bipolar disorder, unspecified; Z72.0 Tobacco use
CPT/HCPCS: 36000; 36415; 71045; 71260; 80053; 80061; 82550; 82805; 82962; 83036; 83721; 83880; 84484; 84703; 85025; 85379; 85610; 85730; 93005; 93041; 93268; 94150; 94640; 94760; 96360; 96361; 96374; 96375; 96376; 99285; J1170; J1885; A9270-GY; G0378

== ENCOUNTER 2018-02-13 12:23 | Emergency (ER) | payer MEDICARE ==
[2018-02-13] MEDS ORDERED: NALBUPHINE HCL 10 MG/1 ML INJECTION IM STA (13:26)
[2018-02-13] MEDS ORDERED: ZOFRAN ODT 4 MG PO ONE (13:26)
--- NOTE | 2018-02-13 13:32 | ERPHSYRPT ---
- History of Present Illness Time Seen by Provider: 02/13/18 12:55 Source: patient Exam Limitations: clinical condition Patient Subjective Stated Complaint: Pt states has had migraine for past two days. Pt describes it as starting in left base of head and moving up. Pain is not improving with use of cold packs, caffeine, tylenol, benadryl, etc. States typically has headaches 15-20 days a month. Also c/o nausea and photosensitivity. Triage Nursing Assessment: Pt transfers to bed from wheelchair without difficulty. 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 Pt answers questions without difficulty. No facial droop or slurred speech noted. Physician History: PATIENT WITH A HISTORY OF CHRONIC HEADACHES SINCE CHILDHOOD 15 TO 20 DAYS MONTHLY. HAS ASSOCIATED PHOTOPHOBIA, DENIES FEVER, BLURRED VISION, SLURRED SPEECH,FOCAL WEAKNESS, OR NUMBNESS IN EXTREMITIES. HAS PERSISTENT HEADACHE X 3 DAYS. Quality: throbbing Head Pain Location: frontal, occipital Severity of Pain-Max: severe Severity of Pain-Current: severe Recent Head Trauma: frequent headaches Modifying Factors: Improves With: exposure to light Associated Symptoms: denies symptoms Previous symptoms: same symptoms as today Allergies/Adverse Reactions: adhesive Allergy (Intermediate, Verified 02/13/18 13:26) Rash ciprofloxacin HCl [From Cipro] Allergy (Intermediate, Verified 02/13/18 13:26) Rash gatifloxacin [From Tequin] Allergy (Intermediate, Verified 02/13/18 13:26) Rash levofloxacin [From Levaquin] Allergy (Intermediate, Verified 02/13/18 13:26) Rash aspirin Allergy (Verified 02/13/18 13:26) bupropion HCl [From Wellbutrin] Allergy (Verified 02/13/18 13:26) carisoprodol [From Soma] Allergy (Verified 02/13/18 13:28) cefaclor [From Ceclor] Allergy (Verified 02/13/18 13:26) ceftibuten dihydrate [From Cedax] Allergy (Verified 02/13/18 13:26) cephalexin monohydrate [From Keflex] Allergy (Verified 02/13/18 13:26) clarithromycin [From Biaxin] Allergy (Verified 02/13/18 13:26) clotrimazole [From Lotrimin] Allergy (Verified 02/13/18 13:26) codeine [Codeine] Allergy (Verified 02/13/18 13:26) erythromycin base [Erythromycin Base] Allergy (Verified 02/13/18 13:26) ketorolac tromethamine [From Toradol] Allergy (Verified 02/13/18 13:26) loracarbef [From Lorabid] Allergy (Verified 02/13/18 13:26) meperidine HCl [From Demerol] Allergy (Verified 02/13/18 13:26) morphine Allergy (Verified 02/13/18 13:26) Norgestimate-Ethi *RETIRED-07/08/12 [From Ortho Tri-Cyclen (21)] Allergy ( Verified 02/13/18 13:26) Penicillins Allergy (Verified 02/13/18 13:26) prochlorperazine edisylate [From Compazine] Allergy (Verified 02/13/18 13:26) promethazine HCl [From Phenergan] Allergy (Verified 02/13/18 13:26) Sulfa (Sulfonamide Antibiotics) [Sulfa(Sulfonamide Antibiotics)] Allergy ( Verified 02/13/18 13:26) sumatriptan [From Imitrex] Allergy (Verified 02/13/18 13:26) water [From Eucerin] Allergy (Verified 02/13/18 13:26) Home Medications: Albuterol Sulfate [Proair Hfa] 2 puff IH QID 10/10/15 [History] Budesonide/Formoterol Fumarate [Symbicort 160-4.5 Mcg Inhaler] 2 puff IH PRN [History] Bumetanide [Bumex] 2 mg PO BID 10/10/15 [History] Cholecalciferol (Vitamin D3) [Vitamin D3] 2,000 unit PO WEEKLY 10/10/15 [History ] Famotidine 40 mg PO BID 10/10/15 [History] Fenofibrate 160 mg PO DAILY 10/10/15 [History] Fluticasone Propionate [Flonase NASAL] 1 gm NS BID 10/10/15 [History] Montelukast Sodium 10 mg PO DAILY 10/10/15 [History] Nitroglycerin 0.4 mg Tablet [Nitrostat 0.4 MG Tablet] 0.4 mg SL Q5MIN PRN MR X 3 PRN 10/10/15 [History] PANTOPRAZOLE 40 mg Tablet [Protonix 40MG Tablet] 40 mg PO DAILY 10/10/15 [ History] Polyethylene Glycol 3350 17 gm [Miralax Powder 17GM PACKET] 17 gm PO UD 10/09 [History] Potassium Chloride 20 Meq [Klor-Con 20 MEQ] 20 meq PO DAILY 10/10/15 [History] Rosuvastatin Calcium [Crestor] 40 mg PO HS 10/10/15 [History] Verapamil HCl [Verapamil ER] 240 mg PO DAILY 10/10/15 [History] Divalproex Sodium [Divalproex Sodium ER] 2 tab PO DAILY 03/06/16 [History] Levothyroxine Sodium 112 Mcg [Synthroid 112 Mcg] 1 tab PO DAILY 03/06/16 [ History] Zolpidem Tartrate 10 mg PO HS 03/06/16 [History] Insulin Regular, Human [Humulin R U-500] 10 unit SQ BID PRN 02/13/18 [History] Hx Tetanus, Diphtheria Vaccination/Date Given: Yes Hx Influenza Vaccination/Date Given: No Hx Pneumococcal Vaccination/Date Given: Yes (2016) - Review of Systems Constitutional: No Fever, No Chills Eyes: No Symptoms Ears, Nose, & Throat: No Symptoms Respiratory: No Symptoms, No Cough, No Dyspnea Cardiac: No Symptoms, No Chest Pain, No Edema, No Syncope Abdominal/Gastrointestinal: No Abdominal Pain, No Nausea, No Vomiting, No Diarrhea Genitourinary Symptoms: No Symptoms, No Dysuria Musculoskeletal: No Symptoms, No Back Pain, No Neck Pain Skin: No Rash Neurological: Headache, No Dizziness, No Focal Weakness, No Sensory Changes Psychological: No Symptoms Endocrine: No Symptoms All Other Systems: Reviewed and Negative - Past Medical History Pertinent Past Medical History: Yes Neurological History: Migraines ENT History: Cataracts Cardiac History: Congestive Heart Failure, High Cholesterol, Hypertension, Other Respiratory History: Asthma, COPD, Sleep Apnea Endocrine Medical History: Diabetes Type II, Hypothyroidism, Other Musculoskeletal History: Arthritis, Fibromyalgia GI Medical History: Esophageal Disorder History: Renal Disease Psycho-Social History: Anxiety, Bipolar, Depression Female Reproductive Disorders: No Pertinent History Other Medical History: 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, Mitral prolapse valve, pulmonary hypertension - Past Surgical History Past Surgical History: Yes Neuro Surgical History: Other Cardiac: Cardiac Catheterization Respiratory: No Pertinent History Gastrointestinal: Cholecystectomy Genitourinary: No Pertinent History Musculoskeletal: Orthopedic Surgery Female Surgical History: Hysterectomy Other Surgical History: carpal tunnel, trigger finger, tendon on right arm, ulnar nerve surgery, clipped left eye muscle - Social History Smoking Status: Current every day smoker How long have you smoked: 42yrs Exposure to second hand smoke: Yes Drug Use: none Patient Lives Alone: No - Female History Hx Last Menstrual Period: Hysterectomy Hx Now: No - Nursing Vital Signs Nursing Vital Signs: Initial Vital Signs Temperature 98.8 F 02/13/18 12:40 Pulse Rate 84 02/13/18 12:40 Respiratory Rate 18 02/13/18 12:40 Blood Pressure 184/96 02/13/18 12:40 Pain Scale Pain Intensity 8 - Physical Exam General Appearance: no apparent distress Eye Exam: PERRL/EOMI Ears, Nose, Throat Exam: normal ENT inspection, moist mucous membranes Neck Exam: normal inspection, non-tender, supple, full range of motion, No meningismus Respiratory Exam: normal breath sounds, lungs clear Cardiovascular Exam: regular rate/rhythm, normal heart sounds Gastrointestinal/Abdominal Exam: soft, No tenderness, No distention Back Exam: normal inspection, 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 of motion 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, 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, 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 Exam: normal hearing, normal speech, PERRL, No facial droop Coordination/Gait Exam: normal cerebellar function Motor/Sensory Exam: no motor deficit, no sensory deficit Skin Exam: normal color, warm, dry, No rash Ordered Tests: Medication Summary Discontinued Medications Generic Name Dose Route Start Last Admin Trade Name Bety PRN Reason Stop Dose Admin Nalbuphine HCl 10 mg 02/13/18 13:26 02/13/18 13:41 Nalbuphine Hcl 10 Mg/1 Ml Injection IM 02/13/18 13:27 10 mg STAT STA Administration Nalbuphine HCl Confirm 02/13/18 13:37 Nubain 10 Mg/Ml Administered 02/13/18 13:38 Dose 10 mg .ROUTE .STK-MED ONE Ondansetron HCl 4 mg 02/13/18 13:26 02/13/18 13:40 Zofran Odt 4 Mg PO 02/13/18 13:27 4 mg STAT ONE Administration Ondansetron HCl Confirm 02/13/18 13:37 Zofran Odt 4 Mg Administered 02/13/18 13:38 Dose 4 mg .ROUTE .STK-MED ONE - Progress Progress: improved, re-examined Progress Note: 02/13/18 13:32 ADMINISTERED NUBAIN 10MG IM, ZOFRAN 4MG SL Counseled pt/family regarding: diagnosis, need for follow-up - Departure Time of Disposition: 14:20 Departure Disposition: Home Clinical Impression: CHRONIC RECURRENT CEPHALGIA Condition: Stable Critical Care Time: No Referrals: DAVE ARZOLA [Primary Care Provider] - Additional Instructions: CONTINUE ALL CURRENT MEDICATIONS, FOLLOWUP WITH YOUR PRIMARY CARE PROVIDER FOR EVALUATION NEXT WEEK.
[2018-02-13] MEDS ORDERED: ZOFRAN ODT 4 MG ONE (13:37)
[2018-02-13] MEDS ORDERED: Nubain 10 MG/ML ONE (13:37)
[2018-02-13 13:47] VITALS: BP 155/69
[2018-02-13 15:07] VITALS: PULSE 84; O2SAT 98
== END 2018-02-13 15:08 | disposition home or self-care (01) ==
LOC: ED 12:23
DX: R51 Headache (principal); Z79.899 Other long term (current) drug therapy
CPT/HCPCS: 96372; 99283; J2300; Q0162

== ENCOUNTER 2018-05-10 12:09 | Emergency (ER) | payer MEDICARE ==
[2018-05-10] MEDS ORDERED: ZOFRAN ODT 4 MG PO ONE (12:34)
[2018-05-10] MEDS ORDERED: ULTRAM 50 MG PO ONE (12:34)
[2018-05-10] MEDS ORDERED: ZOFRAN ODT 4 MG ONE (12:40)
[2018-05-10] MEDS ORDERED: ULTRAM 50 MG ONE (12:40)
[2018-05-10 13:46] VITALS: O2SAT 97
[2018-05-10 14:35] VITALS: BP 149/96; PULSE 71
--- NOTE | 2018-05-10 14:43 | ERPHSYRPT ---
- History of Present Illness Source: patient Exam Limitations: no limitations Patient Subjective Stated Complaint: pt here for multi cos, she has headache, runny nose, cough productive, she states it is a rainbow of colors, no fever Triage Nursing Assessment: pt alert, resp easy, skin w/d/p. arrived per wc, no cough at present time Physician History: Pt presented to the ED with complains of Migraines. Pt states, has chronic migraines, was worked up by neurology with no results, and now just takes pain meds for her pain. Pt states, she took Benadryl and Tylenol at home and has no relief. Timing/Duration: today Quality: aching, throbbing Head Pain Location: frontal Severity of Pain-Max: moderate Severity of Pain-Current: moderate Recent Head Trauma: no recent headache/trauma Modifying Factors: Improves With: exposure to light, medication Associated Symptoms: sensitive to light Previous symptoms: same symptoms as today Allergies/Adverse Reactions: adhesive Allergy (Intermediate, Verified 02/13/18 13:26) Rash ciprofloxacin HCl [From Cipro] Allergy (Intermediate, Verified 02/13/18 13:26) Rash gatifloxacin [From Tequin] Allergy (Intermediate, Verified 02/13/18 13:26) Rash levofloxacin [From Levaquin] Allergy (Intermediate, Verified 02/13/18 13:26) Rash aspirin Allergy (Verified 02/13/18 13:26) bupropion HCl [From Wellbutrin] Allergy (Verified 02/13/18 13:26) carisoprodol [From Soma] Allergy (Verified 02/13/18 13:28) cefaclor [From Ceclor] Allergy (Verified 02/13/18 13:26) ceftibuten dihydrate [From Cedax] Allergy (Verified 02/13/18 13:26) cephalexin monohydrate [From Keflex] Allergy (Verified 02/13/18 13:26) clarithromycin [From Biaxin] Allergy (Verified 02/13/18 13:26) clotrimazole [From Lotrimin] Allergy (Verified 02/13/18 13:26) codeine [Codeine] Allergy (Verified 02/13/18 13:26) erythromycin base [Erythromycin Base] Allergy (Verified 02/13/18 13:26) ketorolac tromethamine [From Toradol] Allergy (Verified 02/13/18 13:26) loracarbef [From Lorabid] Allergy (Verified 02/13/18 13:26) meperidine HCl [From Demerol] Allergy (Verified 02/13/18 13:26) morphine Allergy (Verified 02/13/18 13:26) Norgestimate-Ethi *RETIRED-07/08/12 [From Ortho Tri-Cyclen (21)] Allergy ( Verified 02/13/18 13:26) Penicillins Allergy (Verified 02/13/18 13:26) prochlorperazine edisylate [From Compazine] Allergy (Verified 02/13/18 13:26) promethazine HCl [From Phenergan] Allergy (Verified 02/13/18 13:26) Sulfa (Sulfonamide Antibiotics) [Sulfa(Sulfonamide Antibiotics)] Allergy ( Verified 02/13/18 13:26) sumatriptan [From Imitrex] Allergy (Verified 02/13/18 13:26) water [From Eucerin] Allergy (Verified 02/13/18 13:26) Home Medications: Albuterol Sulfate [Proair Hfa] 2 puff IH QID 10/10/15 [History] Budesonide/Formoterol Fumarate [Symbicort 160-4.5 Mcg Inhaler] 2 puff IH PRN [History] Bumetanide [Bumex] 2 mg PO BID 10/10/15 [History] Cholecalciferol (Vitamin D3) [Vitamin D3] 2,000 unit PO WEEKLY 10/10/15 [History ] Famotidine 40 mg PO BID 10/10/15 [History] Fenofibrate 160 mg PO DAILY 10/10/15 [History] Fluticasone Propionate [Flonase NASAL] 1 gm NS BID 10/10/15 [History] Montelukast Sodium 10 mg PO DAILY 10/10/15 [History] Nitroglycerin 0.4 mg Tablet [Nitrostat 0.4 MG Tablet] 0.4 mg SL Q5MIN PRN MR X 3 PRN 10/10/15 [History] PANTOPRAZOLE 40 mg Tablet [Protonix 40MG Tablet] 40 mg PO DAILY 10/10/15 [ History] Polyethylene Glycol 3350 17 gm [Miralax Powder 17GM PACKET] 17 gm PO UD 10/09 [History] Potassium Chloride 20 Meq [Klor-Con 20 MEQ] 20 meq PO DAILY 10/10/15 [History] Verapamil HCl [Verapamil ER] 240 mg PO DAILY 10/10/15 [History] Divalproex Sodium [Divalproex Sodium ER] 2 tab PO DAILY 03/06/16 [History] Levothyroxine Sodium 112 Mcg [Synthroid 112 Mcg] 1 tab PO DAILY 03/06/16 [ History] Insulin Regular, Human [Humulin R U-500] 10 unit SQ BID PRN 02/13/18 [History] Hx Tetanus, Diphtheria Vaccination/Date Given: Yes Hx Influenza Vaccination/Date Given: No Hx Pneumococcal Vaccination/Date Given: Yes - Review of Systems Constitutional: No Fever, No Chills Eyes: Photophobia Ears, Nose, & Throat: No Symptoms Respiratory: Cough Cardiac: No Chest Pain, No Edema, No Syncope Abdominal/Gastrointestinal: Nausea, No Abdominal Pain, No Vomiting, No Diarrhea Musculoskeletal: Back Pain, Neck Pain Neurological: Headache - Past Medical History Pertinent Past Medical History: Yes Neurological History: Migraines ENT History: Cataracts Cardiac History: Congestive Heart Failure, High Cholesterol, Hypertension, Other Respiratory History: Asthma, COPD, Sleep Apnea Endocrine Medical History: Diabetes Type II, Hypothyroidism, Other Musculoskeletal History: Arthritis, Fibromyalgia GI Medical History: Esophageal Disorder History: Renal Disease Psycho-Social History: Anxiety, Bipolar, Depression Female Reproductive Disorders: No Pertinent History Other Medical History: 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, Mitral prolapse valve, pulmonary hypertension - Past Surgical History Past Surgical History: Yes Neuro Surgical History: Other Cardiac: Cardiac Catheterization Respiratory: No Pertinent History Gastrointestinal: Cholecystectomy Genitourinary: No Pertinent History Musculoskeletal: Orthopedic Surgery Female Surgical History: Hysterectomy Other Surgical History: carpal tunnel, trigger finger, tendon on right arm, ulnar nerve surgery, clipped left eye muscle - Social History Smoking Status: Current every day smoker How long have you smoked: 42yrs Exposure to second hand smoke: Yes Drug Use: none Patient Lives Alone: No - Female History Hx Last Menstrual Period: hyster Hx Now: No - Nursing Vital Signs Nursing Vital Signs: Initial Vital Signs Temperature 97.6 F 05/10/18 12:17 Pulse Rate 84 02/24/19 12:17 Respiratory Rate 18 05/10/18 12:17 Blood Pressure 174/80 05/10/18 12:17 O2 Sat by Pulse Oximetry 96 05/10/18 12:17 Pain Scale Pain Intensity 6 - Physical Exam General Appearance: no apparent distress Eye Exam: PERRL/EOMI Neck Exam: normal inspection, supple, full range of motion, No meningismus Respiratory Exam: normal breath sounds, lungs clear Cardiovascular Exam: regular rate/rhythm, normal heart sounds Gastrointestinal/Abdominal Exam: soft, No tenderness, No distention occupational rehabilitation aide Exam: normal speech, PERRL, No facial droop SpO2: 97 - Course Nursing assessment & vital signs reviewed: Yes Ordered Tests: Medication Summary Discontinued Medications Generic Name Dose Route Start Last Admin Trade Name Freq PRN Reason Stop Dose Admin Ondansetron HCl 4 mg 05/10/18 12:34 05/10/18 12:46 Zofran Odt 4 Mg PO 05/10/18 12:35 4 mg STAT ONE Administration Ondansetron HCl Confirm 05/10/18 12:40 Zofran Odt 4 Mg Administered 05/10/18 12:41 Dose 4 mg .ROUTE .STK-MED ONE Tramadol HCl 100 mg 05/10/18 12:34 05/10/18 12:45 Ultram 50 Mg PO 05/10/18 12:35 100 mg STAT ONE Administration Tramadol HCl Confirm 05/10/18 12:40 Ultram 50 Mg Administered 05/10/18 12:41 Dose 100 mg .ROUTE .STK-MED ONE - Progress Progress: unchanged Air Movement: fair Progress Note: 05/10/18 14:42 Pt has multiple drug meds. I did order for her Tramadol 100mg PO and Zofran 4mg for her nausea. Pt tolerated those well. Pt should f/u with her PCP, and get referal for neurology for preventative therapy or any other meds. Blood Culture(s) Obtained: No Antibiotics given: No Will see patient in: office Counseled pt/family regarding: need for follow-up - Departure Time of Disposition: 14:43 Departure Disposition: Home Clinical Impression: Migraine, Headache Condition: Stable Critical Care Time: No Referrals: DAVE ARZOLA [Primary Care Provider] - Additional Instructions: F/U with PCP and Neurology.
== END 2018-05-10 14:50 | disposition home or self-care (01) ==
LOC: ED 12:09
DX: G43.909 Migraine, unspecified, not intractable, without status migrainosus (principal); I34.1 Nonrheumatic mitral (valve) prolapse; I27.20 Pulmonary hypertension, unspecified; M19.90 Unspecified osteoarthritis, unspecified site; Z79.899 Other long term (current) drug therapy; I50.9 Heart failure, unspecified; E78.00 Pure hypercholesterolemia, unspecified; J44.9 Chronic obstructive pulmonary disease, unspecified; J45.909 Unspecified asthma, uncomplicated; G47.30 Sleep apnea, unspecified; E11.9 Type 2 diabetes mellitus without complications; E03.9 Hypothyroidism, unspecified
CPT/HCPCS: 99283; Q0162; A9270-GY

== ENCOUNTER 2018-07-08 03:56 | Observation (INO) | payer MEDICARE ==
--- NOTE | 2018-07-08 04:12 | ERPHSYRPT ---
- History of Present Illness Time Seen by Provider: 07/08/18 04:07 Source: patient, EMS Patient Subjective Stated Complaint: Pt states around 1800 she became nauseous and has since thrown up 3 times. She has also had a cough for a month Triage Nursing Assessment: Pt brought in by EMS. Alert & oriented. Respirations easy and non-labored. Skin pink, warm, and dry. Physician History: 52 y/o obese,diabetic white female with multiple medical problems including copd , sleep apnea, blindness, migraine, chf, htn, hypothyroid presents with n/v and abd pain. pts glucometer reading was HIGH. pt called ems and brought to us by ambulance. she states she no longer has a pcp. pt has been "rationing" her insulin Timing/Duration: yesterday Severity: moderate Associated Symptoms: nausea, vomiting, abdominal pain (mild diffuse), weakness, No shortness of breath Allergies/Adverse Reactions: adhesive Allergy (Intermediate, Verified 02/13/18 13:26) Rash ciprofloxacin HCl [From Cipro] Allergy (Intermediate, Verified 02/13/18 13:26) Rash gatifloxacin [From Tequin] Allergy (Intermediate, Verified 02/13/18 13:26) Rash levofloxacin [From Levaquin] Allergy (Intermediate, Verified 02/13/18 13:26) Rash aspirin Allergy (Verified 02/13/18 13:26) bupropion HCl [From Wellbutrin] Allergy (Verified 02/13/18 13:26) carisoprodol [From Soma] Allergy (Verified 02/13/18 13:28) cefaclor [From Ceclor] Allergy (Verified 02/13/18 13:26) ceftibuten dihydrate [From Cedax] Allergy (Verified 02/13/18 13:26) cephalexin monohydrate [From Keflex] Allergy (Verified 02/13/18 13:26) clarithromycin [From Biaxin] Allergy (Verified 02/13/18 13:26) clotrimazole [From Lotrimin] Allergy (Verified 02/13/18 13:26) codeine [Codeine] Allergy (Verified 02/13/18 13:26) erythromycin base [Erythromycin Base] Allergy (Verified 02/13/18 13:26) ketorolac tromethamine [From Toradol] Allergy (Verified 02/13/18 13:26) loracarbef [From Lorabid] Allergy (Verified 02/13/18 13:26) meperidine HCl [From Demerol] Allergy (Verified 02/13/18 13:26) morphine Allergy (Verified 02/13/18 13:26) Norgestimate-Ethi *RETIRED-07/08/12 [From Ortho Tri-Cyclen (21)] Allergy ( Verified 02/13/18 13:26) Penicillins Allergy (Verified 02/13/18 13:26) prochlorperazine edisylate [From Compazine] Allergy (Verified 02/13/18 13:26) promethazine HCl [From Phenergan] Allergy (Verified 02/13/18 13:26) Sulfa (Sulfonamide Antibiotics) [Sulfa(Sulfonamide Antibiotics)] Allergy ( Verified 02/13/18 13:26) sumatriptan [From Imitrex] Allergy (Verified 02/13/18 13:26) water [From Eucerin] Allergy (Verified 02/13/18 13:26) Home Medications: Albuterol Sulfate [Proair Hfa] 2 puff IH QID PRN 10/10/15 [History] Budesonide/Formoterol Fumarate [Symbicort 160-4.5 Mcg Inhaler] 2 puff IH BID [History] Bumetanide [Bumex] 4 mg PO DAILY 10/10/15 [History] Cholecalciferol (Vitamin D3) [Vitamin D3] 2,000 unit PO WEEKLY 10/10/15 [History ] Famotidine 40 mg PO BID 10/10/15 [History] Fenofibrate 160 mg PO DAILY 10/10/15 [History] Fluticasone Propionate [Flonase NASAL] 1 gm NS BID 10/10/15 [History] Montelukast Sodium 25 mg PO DAILY 10/10/15 [History] Nitroglycerin 0.4 mg Tablet [Nitrostat 0.4 MG Tablet] 0.4 mg SL Q5MIN PRN MR X 3 PRN 10/10/15 [History] PANTOPRAZOLE 40 mg Tablet [Protonix 40MG Tablet] 40 mg PO DAILY 10/10/15 [ History] Polyethylene Glycol 3350 17 gm [Miralax Powder 17GM PACKET] 17 gm PO UD PRN 10/10/15 [History] Potassium Chloride 20 Meq [Klor-Con 20 MEQ] 20 meq PO DAILY 10/10/15 [History] Verapamil HCl [Verapamil ER] 240 mg PO DAILY 10/10/15 [History] Divalproex Sodium [Divalproex Sodium ER] 2 tab PO DAILY 03/06/16 [History] Levothyroxine Sodium 112 Mcg [Synthroid 112 Mcg] 1 tab PO DAILY 03/06/16 [ History] Insulin Regular, Human [Humulin R U-500] 0 unit SQ UD 02/13/18 [History] Albuterol Sulfate [Proair Hfa] 2 puffs IH QID 07/08/18 [History] Apixaban [Eliquis 2.5 mg Tablet] 2.5 mg PO BID 07/08/18 [History] Ferrous Sulfate 325 mg PO DAILY 07/08/18 [History] Ondansetron ODT 4 MG [Zofran Odt 4 mg] 1 tab PO Q4-6HPRN PRN 07/08/18 [ History] Rosuvastatin Calcium [Crestor] 40 mg PO DAILY 07/08/18 [History] Zolpidem Tartrate 10 mg [Ambien 10 MG] 10 mg PO DAILY 07/08/18 [History] Hx Tetanus, Diphtheria Vaccination/Date Given: Yes (4 years ago?) Hx Influenza Vaccination/Date Given: No Hx Pneumococcal Vaccination/Date Given: No - Review of Systems Constitutional: Weakness Eyes: No Symptoms Ears, Nose, & Throat: No Symptoms Respiratory: No Symptoms Cardiac: No Symptoms Abdominal/Gastrointestinal: Abdominal Pain, Nausea, Vomiting Genitourinary Symptoms: No Symptoms Musculoskeletal: No Symptoms Skin: No Symptoms Neurological: No Symptoms Psychological: No Symptoms Endocrine: No Symptoms Hematologic/Lymphatic: No Symptoms Immunological/Allergic: No Symptoms All Other Systems: Reviewed and Negative - Past Medical History Pertinent Past Medical History: Yes Neurological History: Migraines ENT History: Cataracts Cardiac History: Congestive Heart Failure, High Cholesterol, Hypertension, Other Respiratory History: Asthma, COPD, Sleep Apnea Endocrine Medical History: Diabetes Type II, Hypothyroidism, Other Musculoskeletal History: Arthritis, Fibromyalgia GI Medical History: Esophageal Disorder History: Renal Disease Psycho-Social History: Anxiety, Bipolar, Depression Female Reproductive Disorders: No Pertinent History Other Medical History: 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, Mitral prolapse valve, pulmonary hypertension - Past Surgical History Past Surgical History: Yes Neuro Surgical History: Other Cardiac: Cardiac Catheterization Respiratory: No Pertinent History Gastrointestinal: Cholecystectomy Genitourinary: No Pertinent History Musculoskeletal: Orthopedic Surgery Female Surgical History: Hysterectomy Other Surgical History: carpal tunnel, trigger finger, tendon on right arm, ulnar nerve surgery, clipped left eye muscle - Social History Smoking Status: Current every day smoker How long have you smoked: 42 Exposure to second hand smoke: Yes Drug Use: none Patient Lives Alone: No - Female History Hx Now: No - Nursing Vital Signs Nursing Vital Signs: Initial Vital Signs Temperature 98.5 F 07/08/18 03:57 Pulse Rate 77 07/08/18 03:57 Respiratory Rate 16 07/08/18 03:57 Blood Pressure 177/78 07/08/18 03:57 O2 Sat by Pulse Oximetry 95 07/08/18 03:57 Pain Scale Pain Intensity 7 - Physical Exam General Appearance: mild distress, alert, anxiety Eye Exam: PERRL/EOMI Ears, Nose, Throat Exam: normal ENT inspection, moist mucous membranes Neck Exam: normal inspection, non-tender, supple, full range of motion Respiratory Exam: normal breath sounds, lungs clear, airway intact, No chest tenderness, No respiratory distress, No accessory muscle use, No rhonchi, No wheezing, No stridor Cardiovascular Exam: regular rate/rhythm, normal heart sounds, normal peripheral pulses Gastrointestinal/Abdomen Exam: soft, normal bowel sounds, No tenderness, No guarding Pelvic Exam: not done Rectal Exam: not done Back Exam: normal inspection, 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 of motion, No CVA tenderness, No vertebral tenderness Extremity Exam: normal inspection, 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 of motion, pelvis stable Neurologic Exam: alert, 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, cooperative, 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 II-XII nml as tested Skin Exam: normal color, warm, dry Lymphatic Exam: No adenopathy SpO2 Interpretation: normal SpO2: 95 O2 Delivery: Room Air Ordered Tests: Active Orders 24 hr Category Date Time Status Clean Catch Urine Specimen STAT Care 07/08/18 04:14 Active IV Insertion STAT Care 07/08/18 04:14 Active AMYLASE Stat Lab 07/08/18 04:24 Completed CBC W DIFF Stat Lab 07/08/18 04:24 Completed CMP Stat Lab 07/08/18 04:24 Completed CULTURE,URINE Stat Lab 07/08/18 04:26 Received LIPASE Stat Lab 07/08/18 04:24 Completed Lactic Acid Stat Lab 07/08/18 04:14 Completed UA W/RFX UR CULTURE Stat Lab 07/08/18 04:26 Completed Transfer Order Routine Transfer 07/08/18 Ordered Medication Summary Discontinued Medications Generic Name Dose Route Start Last Admin Trade Name Bety PRN Reason Stop Dose Admin Sodium Chloride 1,000 mls @ 999 mls/hr 07/08/18 04:14 07/08/18 05:51 Sodium Chloride 0.9% 1000 Ml IV 07/08/18 05:14 Infused .Q1H1M STA Infusion Sodium Chloride Confirm 07/08/18 04:28 Sodium Chloride 0.9% 1000 Ml Administered 07/08/18 04:29 Dose 1,000 mls @ ud .ROUTE .STK-MED ONE Sodium Chloride 500 mls @ 500 mls/hr 07/08/18 06:14 07/08/18 06:27 Sodium Chloride 0.9% 500 Ml IV 07/08/18 07:13 500 mls/hr .Q1H ONE Administration Sodium Chloride Confirm 07/08/18 06:26 Sodium Chloride 0.9% 500 Ml Administered 07/08/18 06:27 Dose 500 mls @ ud IV .STK-MED ONE Insulin Human Regular 20 unit 07/08/18 05:37 07/08/18 05:45 Novolin R IV 07/08/18 05:38 20 unit STAT ONE Administration Insulin Human Regular Confirm 07/08/18 05:41 Novolin R Administered 07/08/18 05:42 Dose 20 unit .ROUTE .STK-MED ONE Nitrofurantoin Macrocrystals 100 mg 07/08/18 06:15 07/08/18 06:27 Macrobid 100mg Capsule PO 07/08/18 06:16 100 mg STAT ONE Administration Nitrofurantoin Macrocrystals Confirm 07/08/18 06:25 Macrobid 100mg Capsule Administered 07/08/18 06:26 Dose 100 mg .ROUTE .STK-MED ONE Ondansetron HCl 4 mg 07/08/18 04:14 07/08/18 04:34 Zofran 4 Mg/2 Ml Vial IV 07/08/18 04:15 4 mg STAT ONE Administration Ondansetron HCl Confirm 07/08/18 04:28 Zofran 4 Mg/2 Ml Vial Administered 07/08/18 04:29 Dose 4 mg .ROUTE .STK-MED ONE Lab/Rad Data: Laboratory Result Diagrams 07/08/18 04:24 07/08/18 04:24 Laboratory Results 07/08/18 07/08/18 07/08/18 Range/Units 04:26 04:24 04:24 WBC 5.6 (4.0-10.5) K/mm3 RBC 4.75 (4.1-5.4) M/mm3 Hgb 14.6 (12.0-16.0) gm/dl Hct 41.5 (35-47) % MCV 87.4 (78-100) fl MCH 30.7 (26-32) pg MCHC 35.2 (32-36) g/dl RDW 12.7 (11.5-14.0) % Plt Count 114 L (150-450) K/mm3 MPV 12.9 H (6-9.5) fl Gran % 65.4 (36.0-66.0) % Eos # (Auto) 0.16 (0-0.5) Absolute Lymphs (auto) 1.41 (1.0-4.6) Absolute Monos (auto) 0.33 (0.0-1.3) Lymphocytes % 25.4 (24.0-44.0) % Monocytes % 5.9 (0.0-12.0) % Eosinophils % 2.9 (0.00-5.0) % Basophils % 0.4 (0.0-0.4) % Absolute Granulocytes 3.64 (1.4-6.9) Basophils # 0.02 (0-0.4) Sodium 124 L (137-145) mmol/L Potassium 4.6 (3.5-5.1) mmol/L Chloride 85 L (98-107) mmol/L Carbon Dioxide 24 (22-30) mmol/L Anion Gap 19.2 H (5-15) MEQ/L BUN 22 H (7-17) mg/dL Creatinine 1.17 H (0.52-1.04) mg/dL Estimated GFR 52.0 ML/MIN Glucose 817 H* (74-106) mg/dL Lactic Acid (0.4-2.0) Calcium 9.6 (8.4-10.2) mg/dL Total Bilirubin 0.50 (0.2-1.3) mg/dL AST 17 (14-36) U/L ALT 24 (0-35) U/L Alkaline Phosphatase 223 H (38-126) U/L Serum Total Protein 7.5 (6.3-8.2) g/dL Albumin 3.9 (3.5-5.0) g/dL Amylase 55 (30-110) U/L Lipase 48 (23-300) U/L Urine Color STRAW (YELLOW) Urine Appearance CLEAR (CLEAR) Urine pH 6.0 (5-6) Ur Specific Lynn 1.023 (1.005-1.025) Urine Protein 100 (Negative) Urine Ketones NEGATIVE (NEGATIVE) Urine Blood SMALL (0-5) Joseluis/ul Urine Nitrite POSITIVE (NEGATIVE) Urine Bilirubin NEGATIVE (NEGATIVE) Urine Urobilinogen NEGATIVE (0-1) mg/dL Ur Leukocyte Esterase NEGATIVE (NEGATIVE) Urine WBC (Auto) 16-25 (0-5) /HPF Urine RBC (Auto) 0-2 (0-2) /HPF U Epithel Cells (Auto) NONE (FEW) /HPF Urine Bacteria (Auto) RARE (NEGATIVE) /HPF Urine Culture Reflexed YES (NO) Urine Glucose >=500 (NEGATIVE) mg/dL 07/08/18 Range/Units 04:14 WBC (4.0-10.5) K/mm3 RBC (4.1-5.4) M/mm3 Hgb (12.0-16.0) gm/dl Hct (35-47) % MCV (78-100) fl MCH (26-32) pg MCHC (32-36) g/dl RDW (11.5-14.0) % Plt Count (150-450) K/mm3 MPV (6-9.5) fl Gran % (36.0-66.0) % Eos # (Auto) (0-0.5) Absolute Lymphs (auto) (1.0-4.6) Absolute Monos (auto) (0.0-1.3) Lymphocytes % (24.0-44.0) % Monocytes % (0.0-12.0) % Eosinophils % (0.00-5.0) % Basophils % (0.0-0.4) % Absolute Granulocytes (1.4-6.9) Basophils # (0-0.4) Sodium (137-145) mmol/L Potassium (3.5-5.1) mmol/L Chloride (98-107) mmol/L Carbon Dioxide (22-30) mmol/L Anion Gap (5-15) MEQ/L BUN (7-17) mg/dL Creatinine (0.52-1.04) mg/dL Estimated GFR ML/MIN Glucose (74-106) mg/dL Lactic Acid 1.6 (0.4-2.0) Calcium (8.4-10.2) mg/dL Total Bilirubin (0.2-1.3) mg/dL AST (14-36) U/L ALT (0-35) U/L Alkaline Phosphatase (38-126) U/L Serum Total Protein (6.3-8.2) g/dL Albumin (3.5-5.0) g/dL Amylase (30-110) U/L Lipase (23-300) U/L Urine Color (YELLOW) Urine Appearance (CLEAR) Urine pH (5-6) Ur Specific Lynn (1.005-1.025) Urine Protein (Negative) Urine Ketones (NEGATIVE) Urine Blood (0-5) Joseluis/ul Urine Nitrite (NEGATIVE) Urine Bilirubin (NEGATIVE) Urine Urobilinogen (0-1) mg/dL Ur Leukocyte Esterase (NEGATIVE) Urine WBC (Auto) (0-5) /HPF Urine RBC (Auto) (0-2) /HPF U Epithel Cells (Auto) (FEW) /HPF Urine Bacteria (Auto) (NEGATIVE) /HPF Urine Culture Reflexed (NO) Urine Glucose (NEGATIVE) mg/dL - Progress Progress: improved Progress Note: 07/08/18 07:[address] rangel. he accepts pt for observation Discussed with : Hermilo Will see patient in: hospital (observation) Counseled pt/family regarding: lab results, diagnosis, need for follow-up - Departure Departure Disposition: Observation Clinical Impression: Hyperglycemia, UTI (urinary tract infection) Condition: Stable Critical Care Time: No Referrals: DAVE ARZOLA [Primary Care Provider] -
[2018-07-08] MEDS ORDERED: Sodium Chloride 0.9% 1000 ML 1,000 ML IV STA (04:14)
[2018-07-08] MEDS ORDERED: Zofran 4 MG/2 ML VIAL IV ONE (04:14)
[2018-07-08] MEDS ORDERED: Zofran 4 MG/2 ML VIAL ONE (04:28)
[2018-07-08] MEDS ORDERED: Sodium Chloride 0.9% 1000 ML 1,000 ML ONE (04:28)
[2018-07-08 04:34] LABS: BASOPHIL % 0.4 % (0.0-0.4); Basophil (Absolute #) 0.02 (0-0.4); Eosinophil % 2.9 % (0.00-5.0); Eosinophil (Absolute #) 0.16 (0-0.5); Granulocyte Absolute (ANC) 3.64 (1.4-6.9); Granulocytes % 65.4 % (36.0-66.0); Hematocrit 41.5 % (35-47); Hemoglobin 14.6 gm/dl (12.0-16.0); Lymphocyte (Absolute #) 1.41 (1.0-4.6); Lymphocytes % 25.4 % (24.0-44.0); Mean Cell Volume 87.4 fl (78-100); Mean Corpuscular Hemoglobin 30.7 pg (26-32); Mean Corpuscular Hgb Concent. 35.2 g/dl (32-36); Mean Platelet Volume 12.9 fl (6-9.5); Monocyte (Absolute #) 0.33 (0.0-1.3); Monocytes % 5.9 % (0.0-12.0); Platelet Count 114 K/mm3 (150-450); Red Blood Count 4.75 M/mm3 (4.1-5.4); Red Cell Distribution Width 12.7 % (11.5-14.0); White Blood Count 5.6 K/mm3 (4.0-10.5)
[2018-07-08 04:39] LABS: ALBUMIN 3.9 g/dL (3.5-5.0); BILIRUBIN,TOTAL 0.5 mg/dL (0.2-1.3); Calcium 9.6 mg/dL (8.4-10.2); Total Protein 7.5 g/dL (6.3-8.2)
[2018-07-08 04:42] LABS: Appearance CLEAR (CLEAR); Bacteria RARE /HPF (NEGATIVE); Bilirubin NEGATIVE (NEGATIVE); Blood SMALL Ery/ul (0-5); Glucose >=500 mg/dL (NEGATIVE); Ketones NEGATIVE (NEGATIVE); Leukocyte Esterase NEGATIVE (NEGATIVE); Nitrite POSITIVE (NEGATIVE); Protein,Urine Dip 100 (Negative); RBC 0-2 /HPF (0-2); Specific Gravity 1.023 (1.005-1.025); Urobilinogen NEGATIVE mg/dL (0-1)
[2018-07-08 04:56] LABS: ANION GAP 19.2 MEQ/L (5-15); Creatinine 1 1.17 mg/dL (0.52-1.04); Potassium 4.6 mmol/L (3.5-5.1)
[2018-07-08] MEDS ORDERED: NovoLIN R IV ONE (05:37)
[2018-07-08] MEDS ORDERED: NovoLIN R ONE (05:41)
[2018-07-08] MEDS ORDERED: Sodium Chloride 0.9% 500 ML 500 ML IV ONE ×2 (06:14→06:26)
[2018-07-08] MEDS ORDERED: Macrobid 100MG Capsule PO ONE (06:15)
[2018-07-08] MEDS ORDERED: Macrobid 100MG Capsule ONE (06:25)
[2018-07-08] MEDS ORDERED: NovoLIN R SQ PRN (07:42)
[2018-07-08] MEDS ORDERED: Sodium Chloride 0.9% 1000 ML 1,000 ML IV SCH (07:42)
--- NOTE | 2018-07-08 10:01 | PCM.HP ---
History of Present Illness - Chief Complaint Chief Complaint: hyperglycemia, uti History of Present Illness: is a 52 year old female who presented to the ER with complaints of headache, nausea and vomiting and cough that has been productive. she has been out of her insulin for the last couple of weeks, glucometer read "high" this am so came for evaluation. she was under the care of Dr Bolanos in [place] but hasn 't seen him in a year and has ran out of refills and has no transportation to get an appointment. She has a history of chronic kidney disease and sees Dr Soler and chf and follows with Dr Colmenares but sounds like she hasn't had any care for quite some time. was on eliquis but was out, in questioning she had a DVT following a hysterectomy 5-6 years ago so likely will no longer require chronic anticoagulation, she has some chronic swelling and is concerned about her chf due to her cough. she did not have a chest xray in the ER. - Review of Systems Constitutional: No Fever, No Chills Respiratory: Cough Cardiac: No Chest Pain, No Edema, No Syncope Abdominal/Gastrointestinal: Nausea, Vomiting, No Abdominal Pain, No Diarrhea Neurological: Headache, No Focal Weakness, No Parasthesia, No Seizure Psychological: No Symptoms All Other Systems: Reviewed and Negative Medications & Allergies Home Medications: Home Medication List Budesonide/Formoterol Fumarate [Symbicort 160-4.5 Mcg Inhaler] 2 puff IH BID [History Confirmed 07/08/18] Bumetanide [Bumex] 4 mg PO DAILY 10/10/15 [History Confirmed 07/08/18] Cholecalciferol (Vitamin D3) [Vitamin D3] 2,000 unit PO DAILY 10/10/15 [History Confirmed 07/08/18] Famotidine 40 mg PO BID 10/10/15 [History Confirmed 07/08/18] Fenofibrate 160 mg PO DAILY 10/10/15 [History Confirmed 07/08/18] Fluticasone Propionate [Flonase NASAL] 1 gm NS BID 10/10/15 [History Confirmed 07/08/18] Montelukast Sodium 25 mg PO DAILY 10/10/15 [History Confirmed 07/08/18] Nitroglycerin 0.4 mg Tablet [Nitrostat 0.4 MG Tablet] 0.4 mg SL Q5MIN PRN MR X 3 PRN 10/10/15 [History Confirmed 07/08/18] PANTOPRAZOLE 40 mg Tablet [Protonix 40MG Tablet] 40 mg PO DAILY 10/10/15 [ History Confirmed 07/08/18] Polyethylene Glycol 3350 17 gm [Miralax Powder 17GM PACKET] 17 gm PO UD PRN 10/10/15 [History Confirmed 07/08/18] Potassium Chloride 20 Meq [Klor-Con 20 MEQ] 20 meq PO DAILY 10/10/15 [History Confirmed 07/08/18] Verapamil HCl [Verapamil ER] 240 mg PO DAILY 10/10/15 [History Confirmed ] Divalproex Sodium [Divalproex Sodium ER] 2 tab PO DAILY 03/06/16 [History Confirmed 07/08/18] Levothyroxine Sodium 112 Mcg [Synthroid 112 Mcg] 1 tab PO DAILY 03/06/16 [ History Confirmed 07/08/18] Insulin Regular, Human [Humulin R U-500] 0 unit SQ UD 02/13/18 [History Confirmed 07/08/18] Albuterol 2.5 mg/3 ml Neb [Proventil 2.5 mg/3 ml Neb] 1 ea IH QID PRN PRN 07/08/18 [History Confirmed 07/08/18] Albuterol Sulfate [Proair Hfa] 2 puffs IH QID 07/08/18 [History Confirmed ] Apixaban [Eliquis 2.5 mg Tablet] 2.5 mg PO BID 07/08/18 [History Confirmed ] Ferrous Sulfate 325 mg PO DAILY 07/08/18 [History Confirmed 07/08/18] Ondansetron ODT 4 MG [Zofran Odt 4 mg] 1 tab PO Q4-6HPRN PRN 07/08/18 [ History Confirmed 07/08/18] Rosuvastatin Calcium [Crestor] 40 mg PO DAILY 07/08/18 [History Confirmed ] Zolpidem Tartrate 10 mg [Ambien 10 MG] 10 mg PO HS 07/08/18 [History Confirmed 07/08/18] Allergies/Adverse Reactions: Allergies Allergy/AdvReac Type Severity Reaction Status Date / Time adhesive Allergy Intermediate Rash Verified 02/13/18 13:26 ciprofloxacin HCl Allergy Intermediate Rash Verified 02/13/18 13:26 [From Cipro] gatifloxacin [From Tequin] Allergy Intermediate Rash Verified 02/13/18 13:26 levofloxacin [From Levaquin] Allergy Intermediate Rash Verified 02/13/18 13:26 aspirin Allergy Verified 02/13/18 13:26 bupropion HCl Allergy Verified 02/13/18 13:26 [From Wellbutrin] carisoprodol [From Soma] Allergy Verified 02/13/18 13:28 cefaclor [From Ceclor] Allergy Verified 02/13/18 13:26 ceftibuten dihydrate Allergy Verified 02/13/18 13:26 [From Cedax] cephalexin monohydrate Allergy Verified 02/13/18 13:26 [From Keflex] clarithromycin [From Biaxin] Allergy Verified 02/13/18 13:26 clotrimazole [From Lotrimin] Allergy Verified 02/13/18 13:26 codeine [Codeine] Allergy Verified 02/13/18 13:26 erythromycin base Allergy Verified 02/13/18 13:26 [Erythromycin Base] ketorolac tromethamine Allergy Verified 02/13/18 13:26 [From Toradol] loracarbef [From Lorabid] Allergy Verified 02/13/18 13:26 meperidine HCl [From Demerol] Allergy Verified 02/13/18 13:26 morphine Allergy Verified 02/13/18 13:26 Norgestimate-Ethi Allergy Verified 02/13/18 13:26 *RETIRED-07/08/12 [From Ortho Tri-Cyclen (21)] Penicillins Allergy Verified 02/13/18 13:26 prochlorperazine edisylate Allergy Verified 02/13/18 13:26 [From Compazine] promethazine HCl Allergy Verified 02/13/18 13:26 [From Phenergan] Sulfa (Sulfonamide Allergy Verified 02/13/18 13:26 Antibiotics) [Sulfa(Sulfonamide Antibiotics)] sumatriptan [From Imitrex] Allergy Verified 02/13/18 13:26 water [From Eucerin] Allergy Verified 02/13/18 13:26 - Past Medical History Past Medical History: Yes Neurological History: Migraines ENT History: Cataracts Cardiac History: Congestive Heart Failure, High Cholesterol, Hypertension, Other Respiratory History: Asthma, COPD, Sleep Apnea Endocrine Medical History: Diabetes Type II, Hypothyroidism, Other Musculoskelatal History: Arthritis, Fibromyalgia GI Medical History: Esophageal Disorder History: Renal Disease Pyscho-Social History: Anxiety, Bipolar, Depression Reproductive Disorders: No Pertinent History Comment: 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, Mitral prolapse valve, pulmonary hypertension - Female History Are you now?: No - Past Surgical History Past Surgical History: Yes Neuro Surgical History: Other Cardiac History: Cardiac Catheterization Respiratory Surgery: No Pertinent History GI Surgical History: Cholecystectomy Genitourinary Surgical Hx: No Pertinent History Musculskeletal Surgical Hx: Orthopedic Surgery Female Surgical History: Hysterectomy Other Surgical History: carpal tunnel, trigger finger, tendon on right arm, ulnar nerve surgery, clipped left eye muscle - Social History Smoking Status: Current every day smoker How long have you smoked: 40 yrs Exposure to second hand smoke: Yes Alcohol: None Drug Use: none - Physical Exam Vital Signs: Vital Signs - 24 hr Temp Pulse Resp BP BP Pulse Ox 07/08/18 08:40 98.6 F 78 20 165/84 165/84 94 L 07/08/18 07:50 98.6 F 78 20 165/84 165/84 94 L 07/08/18 07:48 98.6 F 78 20 165/84 94 L 07/08/18 07:40 98.6 F 78 20 165/84 94 L 07/08/18 07:16 95 07/08/18 06:50 74 127/67 94 L 07/08/18 06:40 78 20 127/67 93 L 07/08/18 05:50 76 20 94 L 07/08/18 05:40 78 18 130/59 94 L 07/08/18 04:50 74 20 94 L 07/08/18 04:47 74 20 170/80 94 L 07/08/18 03:57 98.5 F 77 16 177/78 95 General Appearance: obese Neurologic Exam: alert, 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 Eye Exam: PERRL/EOMI, eyes nml inspection Neck Exam: normal inspection, non-tender, supple, full range of motion Respiratory Exam: normal breath sounds, lungs clear, No respiratory distress Cardiovascular Exam: regular rate/rhythm, normal heart sounds, normal peripheral pulses Gastrointestinal/Abdomen Exam: soft, normal bowel sounds, No tenderness, No mass Extremity Exam: normal inspection, 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 of motion, pelvis stable Skin Exam: normal color, warm, dry, No rash Results - Labs Lab/Micro Results: Lab Results-Last 24 Hours 07/08/18 07/08/18 07/08/18 Range/Units 04:14 04:24 04:24 WBC 5.6 (4.0-10.5) K/mm3 RBC 4.75 (4.1-5.4) M/mm3 Hgb 14.6 (12.0-16.0) gm/dl Hct 41.5 (35-47) % MCV 87.4 (78-100) fl MCH 30.7 (26-32) pg MCHC 35.2 (32-36) g/dl RDW 12.7 (11.5-14.0) % Plt Count 114 L (150-450) K/mm3 MPV 12.9 H (6-9.5) fl Gran % 65.4 (36.0-66.0) % Eos # (Auto) 0.16 (0-0.5) Absolute Lymphs (auto) 1.41 (1.0-4.6) Absolute Monos (auto) 0.33 (0.0-1.3) Lymphocytes % 25.4 (24.0-44.0) % Monocytes % 5.9 (0.0-12.0) % Eosinophils % 2.9 (0.00-5.0) % Basophils % 0.4 (0.0-0.4) % Absolute Granulocytes 3.64 (1.4-6.9) Basophils # 0.02 (0-0.4) Sodium 124 L (137-145) mmol/L Potassium 4.6 (3.5-5.1) mmol/L Chloride 85 L (98-107) mmol/L Carbon Dioxide 24 (22-30) mmol/L Anion Gap 19.2 H (5-15) MEQ/L BUN 22 H (7-17) mg/dL Creatinine 1.17 H (0.52-1.04) mg/dL Estimated GFR 52.0 ML/MIN Glucose 817 H* (74-106) mg/dL Lactic Acid 1.6 (0.4-2.0) Calcium 9.6 (8.4-10.2) mg/dL Total Bilirubin 0.50 (0.2-1.3) mg/dL AST 17 (14-36) U/L ALT 24 (0-35) U/L Alkaline Phosphatase 223 H (38-126) U/L Serum Total Protein 7.5 (6.3-8.2) g/dL Albumin 3.9 (3.5-5.0) g/dL Amylase 55 (30-110) U/L Lipase 48 (23-300) U/L Urine Color (YELLOW) Urine Appearance (CLEAR) Urine pH (5-6) Ur Specific [place] (1.005-1.025) Urine Protein (Negative) Urine Ketones (NEGATIVE) Urine Blood (0-5) Joseluis/ul Urine Nitrite (NEGATIVE) Urine Bilirubin (NEGATIVE) Urine Urobilinogen (0-1) mg/dL Ur Leukocyte Esterase (NEGATIVE) Urine WBC (Auto) (0-5) /HPF Urine RBC (Auto) (0-2) /HPF U Epithel Cells (Auto) (FEW) /HPF Urine Bacteria (Auto) (NEGATIVE) /HPF Urine Culture Reflexed (NO) Urine Glucose (NEGATIVE) mg/dL 07/08/18 Range/Units 04:26 WBC (4.0-10.5) K/mm3 RBC (4.1-5.4) M/mm3 Hgb (12.0-16.0) gm/dl Hct (35-47) % MCV (78-100) fl MCH (26-32) pg MCHC (32-36) g/dl RDW (11.5-14.0) % Plt Count (150-450) K/mm3 MPV (6-9.5) fl Gran % (36.0-66.0) % Eos # (Auto) (0-0.5) Absolute Lymphs (auto) (1.0-4.6) Absolute Monos (auto) (0.0-1.3) Lymphocytes % (24.0-44.0) % Monocytes % (0.0-12.0) % Eosinophils % (0.00-5.0) % Basophils % (0.0-0.4) % Absolute Granulocytes (1.4-6.9) Basophils # (0-0.4) Sodium (137-145) mmol/L Potassium (3.5-5.1) mmol/L Chloride (98-107) mmol/L Carbon Dioxide (22-30) mmol/L Anion Gap (5-15) MEQ/L BUN (7-17) mg/dL Creatinine (0.52-1.04) mg/dL Estimated GFR ML/MIN Glucose (74-106) mg/dL Lactic Acid (0.4-2.0) Calcium (8.4-10.2) mg/dL Total Bilirubin (0.2-1.3) mg/dL AST (14-36) U/L ALT (0-35) U/L Alkaline Phosphatase (38-126) U/L Serum Total Protein (6.3-8.2) g/dL Albumin (3.5-5.0) g/dL Amylase (30-110) U/L Lipase (23-300) U/L Urine Color STRAW (YELLOW) Urine Appearance CLEAR (CLEAR) Urine pH 6.0 (5-6) Ur Specific [place] [address] 1.023 (1.005-1.025) Urine Protein 100 (Negative) Urine Ketones NEGATIVE (NEGATIVE) Urine Blood SMALL (0-5) Joseluis/ul Urine Nitrite POSITIVE (NEGATIVE) Urine Bilirubin NEGATIVE (NEGATIVE) Urine Urobilinogen NEGATIVE (0-1) mg/dL Ur Leukocyte Esterase NEGATIVE (NEGATIVE) Urine WBC (Auto) 16-25 (0-5) /HPF Urine RBC (Auto) 0-2 (0-2) /HPF U Epithel Cells (Auto) NONE (FEW) /HPF Urine Bacteria (Auto) RARE (NEGATIVE) /HPF Urine Culture Reflexed YES (NO) Urine Glucose >=500 (NEGATIVE) mg/dL - Radiology Impressions Radiology Exams & Impressions: Radiology Procedures Category Date Time Status CHEST 1 VIEW (PORTABLE) Urgent Exams 07/08/18 09:49 Ordered Assessment/Plan (1) Hyperglycemia Current Visit: Yes Status: Acute Assessment & Plan: start lantus and high dose SSI Code(s): R73.9 - HYPERGLYCEMIA, UNSPECIFIED (2) UTI (urinary tract infection) Current Visit: Yes Status: Acute Assessment & Plan: on macrobid due to extensive allergy list Code(s): N39.0 - URINARY TRACT INFECTION, SITE NOT SPECIFIED (3) Uncontrolled diabetes mellitus Current Visit: No Status: Acute Qualifiers: Diabetes mellitus type: type 2 Assessment & Plan: a1c pending, noncompliant Code(s): E11.65 - TYPE 2 DIABETES MELLITUS WITH HYPERGLYCEMIA (4) Cough Current Visit: Yes Status: Acute Assessment & Plan: chest xray ordered, appears euvolemic on exam Code(s): R05 - COUGH
[2018-07-08] MEDS ORDERED: Tessalon Perles 100 MG PO PRN (10:02)
[2018-07-08] MEDS ORDERED: Zofran 4 MG/2 ML VIAL IV PRN (10:03)
--- NOTE | 2018-07-08 10:47 | XRAY ---
Indication: Cough. Comparison: August 23, 2017. Portable chest remains clear. Heart is not enlarged. Bony thorax intact again with mild degenerative changes. Impression: Stable nonacute chest.
[2018-07-08] MEDS: Lantus Insulin SQ SCH (11:50)
[2018-07-08] MEDS: NovoLIN R SQ PRN ×5 (11:50→23:31)
[2018-07-08] MEDS: TYLENOL 325 MG PO PRN (11:59)
[2018-07-08] MEDS ORDERED: PROVENTIL 2.5 MG/3 ML NEB IH PRN (12:13)
[2018-07-08] MEDS: Advair Hfa 115/21 Common canister IH SCH ×2 (12:50→19:29)
[2018-07-08] MEDS: Protonix 40MG Tablet PO SCH (14:46)
[2018-07-08] MEDS: SYNTHROID 112 MCG PO SCH (14:46)
[2018-07-08] MEDS: Flonase NASAL NS SCH ×2 (14:46→21:19)
[2018-07-08] MEDS: BUMEX 1 MG PO SCH (14:46)
[2018-07-08] MEDS: Pepcid 20 MG PO SCH ×2 (14:46→21:16)
[2018-07-08] MEDS: Depakote EXTENDED RELEASE 250 MG PO SCH (14:46)
[2018-07-08] MEDS: Klor Con 10 MEQ PO SCH (14:47)
[2018-07-08] MEDS: Singulair 10 MG PO SCH (14:47)
[2018-07-08] MEDS: Macrobid 100MG Capsule PO SCH (17:31)
[2018-07-08] MEDS ORDERED: Lantus Insulin SQ ONE (18:09)
[2018-07-08] MEDS: MOTRIN 600 MG PO PRN (19:34)
[2018-07-08] MEDS ORDERED: NON-FORMULARY ITEM (Budesonide/Formoterol Fumarate [Symbicort 160-4.5 Mcg Inhaler] 2 PUFF) IH SCH (22:00)
[2018-07-08] MEDS ORDERED: NON-FORMULARY ITEM (Famotidine [Famotidine] 40 MG) PO SCH (22:00)
[2018-07-09] MEDS ORDERED: Nitrostat 0.4 MG Tablet SL PRN (02:24)
[2018-07-09 02:51] LABS: BASOPHIL % 0.5 % (0.0-0.4); Basophil (Absolute #) 0.03 (0-0.4); Eosinophil % 4.3 % (0.00-5.0); Eosinophil (Absolute #) 0.24 (0-0.5); Granulocyte Absolute (ANC) 2.98 (1.4-6.9); Granulocytes % 53.2 % (36.0-66.0); Hematocrit 39.5 % (35-47); Hemoglobin 14.1 gm/dl (12.0-16.0); Lymphocyte (Absolute #) 2.06 (1.0-4.6); Lymphocytes % 36.7 % (24.0-44.0); Mean Cell Volume 87.4 fl (78-100); Mean Corpuscular Hemoglobin 31.2 pg (26-32); Mean Corpuscular Hgb Concent. 35.7 g/dl (32-36); Mean Platelet Volume 12.2 fl (6-9.5); Monocytes % 5.3 % (0.0-12.0); Platelet Count 115 K/mm3 (150-450); Red Blood Count 4.52 M/mm3 (4.1-5.4); Red Cell Distribution Width 12.6 % (11.5-14.0); White Blood Count 5.6 K/mm3 (4.0-10.5)
[2018-07-09 03:08] LABS: ALBUMIN 3.6 g/dL (3.5-5.0); ANION GAP 16.2 MEQ/L (5-15); BILIRUBIN,TOTAL 0.3 mg/dL (0.2-1.3); Calcium 9.6 mg/dL (8.4-10.2); Creatinine 1 1.23 mg/dL (0.52-1.04)
[2018-07-09] MEDS: MOTRIN 600 MG PO PRN (03:46)
[2018-07-09] MEDS: NovoLIN R SQ PRN ×2 (03:46→08:02)
[2018-07-09] MEDS: Advair Hfa 115/21 Common canister IH SCH (06:50)
[2018-07-09 07:21] VITALS: BP 142/65; PULSE 71; O2SAT 97
[2018-07-09] MEDS: Macrobid 100MG Capsule PO SCH (08:02)
--- NOTE | 2018-07-09 08:03 | PCM.DS ---
Discharge Summary Date of Admission: 07/08/18 07:35 Admitting Physician: VAIBHAV CHURCHILL Primary Care Provider: DAVE ARZOLA Allergies Allergies adhesive Allergy (Intermediate, Verified 02/13/18 13:26) Rash ciprofloxacin HCl [From Cipro] Allergy (Intermediate, Verified 02/13/18 13:26) Rash gatifloxacin [From Tequin] Allergy (Intermediate, Verified 02/13/18 13:26) Rash levofloxacin [From Levaquin] Allergy (Intermediate, Verified 02/13/18 13:26) Rash aspirin Allergy (Verified 02/13/18 13:26) bupropion HCl [From Wellbutrin] Allergy (Verified 02/13/18 13:26) carisoprodol [From Soma] Allergy (Verified 02/13/18 13:28) cefaclor [From Ceclor] Allergy (Verified 02/13/18 13:26) ceftibuten dihydrate [From Cedax] Allergy (Verified 02/13/18 13:26) cephalexin monohydrate [From Keflex] Allergy (Verified 02/13/18 13:26) clarithromycin [From Biaxin] Allergy (Verified 02/13/18 13:26) clotrimazole [From Lotrimin] Allergy (Verified 02/13/18 13:26) codeine [Codeine] Allergy (Verified 02/13/18 13:26) erythromycin base [Erythromycin Base] Allergy (Verified 02/13/18 13:26) ketorolac tromethamine [From Toradol] Allergy (Verified 02/13/18 13:26) loracarbef [From Lorabid] Allergy (Verified 02/13/18 13:26) meperidine HCl [From Demerol] Allergy (Verified 02/13/18 13:26) morphine Allergy (Verified 02/13/18 13:26) Norgestimate-Ethi *RETIRED-07/08/12 [From Ortho Tri-Cyclen (21)] Allergy ( Verified 02/13/18 13:26) Penicillins Allergy (Verified 02/13/18 13:26) prochlorperazine edisylate [From Compazine] Allergy (Verified 02/13/18 13:26) promethazine HCl [From Phenergan] Allergy (Verified 02/13/18 13:26) Sulfa (Sulfonamide Antibiotics) [Sulfa(Sulfonamide Antibiotics)] Allergy ( Verified 02/13/18 13:26) sumatriptan [From Imitrex] Allergy (Verified 02/13/18 13:26) water [From Eucerin] Allergy (Verified 07/09/18 03:06) melon Adverse Reaction (Verified 07/09/18 03:05) Hospital Summary - Hospital Course Hospital Course: patient was admitted with hyperglycemia, headache and feeling poorly. ran out of meds and couldn't get to [facility] to see her PCP for refills. doing well, has been going out to smoke and insists to go home today - Vitals & Intake/Output Vital Signs: Vital Signs Temperature 97.8 F 07/09/18 07:20 Pulse Rate 71 07/09/18 07:20 Respiratory Rate 20 07/09/18 07:20 Blood Pressure 142/65 07/09/18 07:20 O2 Sat by Pulse Oximetry 97 07/09/18 07:20 Intake & Output: Intake & Output 07/06/18 07/07/18 07/08/18 07/09/18 11:59 11:59 11:59 11:59 Intake Total 640 2341 Output Total 3600 Balance 640 -1259 Weight 113.1 kg - Lab Result Diagrams: 07/09/18 02:46 07/09/18 02:46 Lab Results-Last 24 Hrs: Accuchecks Date 07/09/18 Date 07/09/18 Date 07/08/18 Date 07/08/18 Date 07/08/18 Date 07/08/18 Time 04:00 Time 00:00 Time 20:00 Time 16:00 Time 14:00 Accucheck Value: 315 Accucheck Value: 375 Accucheck Value: 408 Accucheck Value: 430 Accucheck Value: 560 Accucheck Value: 471 Lab Results-Last 24 Hours 07/08/18 07/08/18 07/08/18 Range/Units 05:30 05:30 08:20 WBC (4.0-10.5) K/mm3 RBC (4.1-5.4) M/mm3 Hgb (12.0-16.0) gm/dl Hct (35-47) % MCV (78-100) fl MCH (26-32) pg MCHC (32-36) g/dl RDW (11.5-14.0) % Plt Count (150-450) K/mm3 MPV (6-9.5) fl Gran % (36.0-66.0) % Eos # (Auto) (0-0.5) Absolute Lymphs (auto) (1.0-4.6) Absolute Monos (auto) (0.0-1.3) Lymphocytes % (24.0-44.0) % Monocytes % (0.0-12.0) % Eosinophils % (0.00-5.0) % Basophils % (0.0-0.4) % Absolute Granulocytes (1.4-6.9) Basophils # (0-0.4) Sodium (137-145) mmol/L Potassium (3.5-5.1) mmol/L Chloride (98-107) mmol/L Carbon Dioxide (22-30) mmol/L Anion Gap (5-15) MEQ/L BUN (7-17) mg/dL Creatinine (0.52-1.04) mg/dL Estimated GFR ML/MIN Glucose (74-106) mg/dL Hemoglobin A1c 11.12 H (4.5-6.0) % Calcium (8.4-10.2) mg/dL Total Bilirubin (0.2-1.3) mg/dL AST (14-36) U/L ALT (0-35) U/L Alkaline Phosphatase (38-126) U/L Troponin I (0.000-0.034) ng/mL Serum Total Protein (6.3-8.2) g/dL Albumin (3.5-5.0) g/dL Free T4 1.11 (0.76-1.46) ng/dL TSH 3rd Generation 9.480 H (0.47-4.68) mIU/L 07/08/18 07/09/18 07/09/18 Range/Units 14:35 02:46 02:46 WBC 5.6 (4.0-10.5) K/mm3 RBC 4.52 (4.1-5.4) M/mm3 Hgb 14.1 (12.0-16.0) gm/dl Hct 39.5 (35-47) % MCV 87.4 (78-100) fl MCH 31.2 (26-32) pg MCHC 35.7 (32-36) g/dl RDW 12.6 (11.5-14.0) % Plt Count 115 L (150-450) K/mm3 MPV 12.2 H (6-9.5) fl Gran % 53.2 (36.0-66.0) % Eos # (Auto) 0.24 (0-0.5) Absolute Lymphs (auto) 2.06 (1.0-4.6) Absolute Monos (auto) 0.30 (0.0-1.3) Lymphocytes % 36.7 (24.0-44.0) % Monocytes % 5.3 (0.0-12.0) % Eosinophils % 4.3 (0.00-5.0) % Basophils % 0.5 (0.0-0.4) % Absolute Granulocytes 2.98 (1.4-6.9) Basophils # 0.03 (0-0.4) Sodium 133 L D (137-145) mmol/L Potassium 4.0 (3.5-5.1) mmol/L Chloride 97 L D (98-107) mmol/L Carbon Dioxide 24 (22-30) mmol/L Anion Gap 16.2 H (5-15) MEQ/L BUN 23 H (7-17) mg/dL Creatinine 1.23 H (0.52-1.04) mg/dL Estimated GFR 49.1 ML/MIN Glucose 532 H* 307 H (74-106) mg/dL Hemoglobin A1c (4.5-6.0) % Calcium 9.6 (8.4-10.2) mg/dL Total Bilirubin 0.30 (0.2-1.3) mg/dL AST 26 (14-36) U/L ALT 23 (0-35) U/L Alkaline Phosphatase 129 H (38-126) U/L Troponin I (0.000-0.034) ng/mL Serum Total Protein 7.0 (6.3-8.2) g/dL Albumin 3.6 (3.5-5.0) g/dL Free T4 (0.76-1.46) ng/dL TSH 3rd Generation (0.47-4.68) mIU/L 07/09/18 Range/Units 02:46 WBC (4.0-10.5) K/mm3 RBC (4.1-5.4) M/mm3 Hgb (12.0-16.0) gm/dl Hct (35-47) % MCV (78-100) fl MCH (26-32) pg MCHC (32-36) g/dl RDW (11.5-14.0) % Plt Count (150-450) K/mm3 MPV (6-9.5) fl Gran % (36.0-66.0) % Eos # (Auto) (0-0.5) Absolute Lymphs (auto) (1.0-4.6) Absolute Monos (auto) (0.0-1.3) Lymphocytes % (24.0-44.0) % Monocytes % (0.0-12.0) % Eosinophils % (0.00-5.0) % Basophils % (0.0-0.4) % Absolute Granulocytes (1.4-6.9) Basophils # (0-0.4) Sodium (137-145) mmol/L Potassium (3.5-5.1) mmol/L Chloride (98-107) mmol/L Carbon Dioxide (22-30) mmol/L Anion Gap (5-15) MEQ/L BUN (7-17) mg/dL Creatinine (0.52-1.04) mg/dL Estimated GFR ML/MIN Glucose (74-106) mg/dL Hemoglobin A1c (4.5-6.0) % Calcium (8.4-10.2) mg/dL Total Bilirubin (0.2-1.3) mg/dL AST (14-36) U/L ALT (0-35) U/L Alkaline Phosphatase (38-126) U/L Troponin I < 0.012 (0.000-0.034) ng/mL Serum Total Protein (6.3-8.2) g/dL Albumin (3.5-5.0) g/dL Free T4 (0.76-1.46) ng/dL TSH 3rd Generation (0.47-4.68) mIU/L Micro Results-Entire Visit: Accuchecks Date 07/09/18 Date 07/09/18 Date 07/08/18 Date 07/08/18 Date 07/08/18 Date 07/08/18 Time 04:00 Time 00:00 Time 20:00 Time 16:00 Time 14:00 Accucheck Value: 315 Accucheck Value: 375 Accucheck Value: 408 Accucheck Value: 430 Accucheck Value: 560 Accucheck Value: 471 - Radiology Exams Ordered Rad Exams-Entire Visit: Radiology Procedures Category Date Time Status CHEST 1 VIEW (PORTABLE) Urgent Exams 07/08/18 09:49 Completed - Procedures and Test Procedures and Tests throughout Hospitalization: Therapy Orders & Screens 07/08/18 13:05 Respiratory Therapy Assessment DAILY Comment: Diagnosis: hyperglycemia, uti 07/08/18 13:06 Peak Expiratory Flow Rate ONCE Comment: Reason For Exam: Diagnosis: hyperglycemia, uti 07/08/18 21:00 BiPap/CPAP ROUTINE Comment: Diagnosis: hyperglycemia, uti 07/09/18 02:24 Oxygen Nasal Cannula 2 lpm Comment: Diagnosis: hyperglycemia, uti 07/09/18 02:25 EKG STAT Comment: Diagnosis: hyperglycemia, uti Discharge Exam General Appearance: obese Neurologic Exam: alert, 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 Skin Exam: normal color, warm, dry Respiratory Exam: normal breath sounds, lungs clear, No respiratory distress Cardiovascular Exam: regular rate/rhythm, normal heart sounds Gastrointestinal/Abdomen Exam: soft, No tenderness, No mass Final Diagnosis/Problem List - Final Discharge Diagnosis/Problem (1) Hyperglycemia Current Visit: Yes Status: Acute Code(s): R73.9 - HYPERGLYCEMIA, UNSPECIFIED (2) UTI (urinary tract infection) Current Visit: Yes Status: Acute Code(s): N39.0 - URINARY TRACT INFECTION, SITE NOT SPECIFIED (3) Uncontrolled diabetes mellitus Current Visit: No Status: Acute Code(s): E11.65 - TYPE 2 DIABETES MELLITUS WITH HYPERGLYCEMIA (4) Cough Current Visit: Yes Status: Acute Code(s): R05 - COUGH - Discharge Disposition: Home, Self-Care Condition: Stable Prescriptions: New Insulin Regular, Human [Humulin R U-500 Kwikpen] 15 unit SQ TID #5 insuln.pen Nitrofurantoin Macro 100 mg [Macrobid 100MG Capsule] 100 mg PO BIDWM # 14 capsule Continue Polyethylene Glycol 3350 17 gm [Miralax Powder 17GM PACKET] 17 gm PO UD PRN PRN Reason: Constipation Nitroglycerin 0.4 mg Tablet [Nitrostat 0.4 MG Tablet] 0.4 mg SL Q5MIN PRN MR X 3 PRN PRN Reason: Chest Pain Cholecalciferol (Vitamin D3) [Vitamin D3] 2,000 unit PO DAILY Bumetanide [Bumex] 4 mg PO DAILY Montelukast Sodium 25 mg PO DAILY Famotidine 40 mg PO BID Budesonide/Formoterol Fumarate [Symbicort 160-4.5 Mcg Inhaler] 2 puff IH BID Fenofibrate 160 mg PO DAILY Fluticasone Propionate [Flonase NASAL] 1 gm NS BID Potassium Chloride 20 Meq [Klor-Con 20 MEQ] 20 meq PO DAILY PANTOPRAZOLE 40 mg Tablet [Protonix 40MG Tablet] 40 mg PO DAILY Divalproex Sodium [Divalproex Sodium ER] 2 tab PO DAILY Levothyroxine Sodium 112 Mcg [Synthroid 112 Mcg] 1 tab PO DAILY Insulin Regular, Human [Humulin R U-500] 0 unit SQ UD Ondansetron ODT 4 MG [Zofran Odt 4 mg] 1 tab PO Q4-6HPRN PRN PRN Reason: Nausea Zolpidem Tartrate 10 mg [Ambien 10 MG] 10 mg PO HS Ferrous Sulfate 325 mg PO DAILY Apixaban [Eliquis 2.5 mg Tablet] 2.5 mg PO BID Rosuvastatin Calcium [Crestor] 40 mg PO DAILY Albuterol Sulfate [Proair Hfa] 2 puffs IH QID Albuterol 2.5 mg/3 ml Neb [Proventil 2.5 mg/3 ml Neb] 1 ea IH QID PRN PRN PRN Reason: Shortness Of Breath/Wheezing Verapamil HCl [Verapamil ER] 240 mg PO DAILY #30 tablet.er Follow up with: VAIBHAV CHURCHILL MD [ACTIVE STAFF] - 1 Week
[2018-07-09] MEDS: Flonase NASAL NS SCH (08:04)
[2018-07-09] MEDS: TYLENOL 325 MG PO PRN (08:14)
[2018-07-09] MEDS: Singulair 10 MG PO SCH (08:50)
[2018-07-09] MEDS: SYNTHROID 112 MCG PO SCH (08:52)
[2018-07-09] MEDS: Depakote EXTENDED RELEASE 250 MG PO SCH (08:52)
[2018-07-09] MEDS: Pepcid 20 MG PO SCH (08:54)
[2018-07-09] MEDS: BUMEX 1 MG PO SCH (08:55)
[2018-07-09] MEDS: Protonix 40MG Tablet PO SCH (08:58)
[2018-07-09] MEDS: Klor Con 10 MEQ PO SCH (08:58)
[2018-07-09] MEDS: Lantus Insulin SQ SCH (09:01)
[2018-07-09] MEDS ORDERED: ISOPTIN S.R. 240 MG PO SCH (10:00)
[2018-07-09] MEDS ORDERED: BUMETANIDE 4 MG PO SCH (10:00)
[2018-07-09] MEDS ORDERED: NON-FORMULARY ITEM (Potassium Chloride 20 Meq [Klor-Con 20 Meq] 20 MEQ) PO SCH (10:00)
[2018-07-09] MEDS ORDERED: DIVALPROEX SODIUM PO SCH (10:00)
== END 2018-07-09 09:10 | disposition home or self-care (01) ==
LOC: ED 03:56 → MED SURG 07:35
PROVIDERS: ADMIT Family Medicine; ATTEND Family Medicine
DX: E11.65 Type 2 diabetes mellitus with hyperglycemia (principal); N39.0 Urinary tract infection, site not specified; R11.2 Nausea with vomiting, unspecified; R51 Headache; R05 Cough; Z79.899 Other long term (current) drug therapy; Z79.01 Long term (current) use of anticoagulants
CPT/HCPCS: 36000; 36415; 71045; 80053; 81001; 82150; 82947; 82962; 83036; 83605; 83690; 84439; 84443; 84484; 85025; 87077; 87086; 87186; 93005; 94640; 94660; 94760; 96360; 96361; 96374; 96375; 99285; G0378; J2405; A9270-GY

== ENCOUNTER 2018-07-28 19:01 | Emergency (ER) | payer MEDICARE ==
[2018-07-28 19:09] VITALS: PULSE 76
[2018-07-28] MEDS ORDERED: Dilaudid 4 MG Tab PO STA (19:24)
[2018-07-28] MEDS ORDERED: ZOFRAN ODT 4 MG PO STA (19:25)
[2018-07-28] MEDS ORDERED: ZOFRAN ODT 4 MG ONE (19:27)
--- NOTE | 2018-07-28 19:33 | ERPHSYRPT ---
- History of Present Illness Source: patient Exam Limitations: no limitations Patient Subjective Stated Complaint: pt states she has had a migraine for the past few days. states today has been much worse Triage Nursing Assessment: pt alert and oriented, answers questions approp. pt ambulatory wiwht steady gait noted. respirations nonlabored. skin pink warm and dry. pupils equal and reactive. bilat upper and lower ext strength equal and wnl. Physician History: Pt is a 52 y/o female with a h/o migraines. She stated, had migraines for a few days now, and she can't get any relief. The pt states, the medication that works for her is Nubaine and Dilaudid. Pt refusing all other meds "just give me my papers, it was a waste of time". Timing/Duration: day(s) Quality: aching, throbbing Head Pain Location: frontal Severity of Pain-Max: severe Modifying Factors: Improves With: medication Associated Symptoms: denies symptoms Previous symptoms: same symptoms as today Allergies/Adverse Reactions: adhesive Allergy (Intermediate, Verified 02/13/18 13:26) Rash ciprofloxacin HCl [From Cipro] Allergy (Intermediate, Verified 02/13/18 13:26) Rash gatifloxacin [From Tequin] Allergy (Intermediate, Verified 02/13/18 13:26) Rash levofloxacin [From Levaquin] Allergy (Intermediate, Verified 02/13/18 13:26) Rash aspirin Allergy (Verified 02/13/18 13:26) bupropion HCl [From Wellbutrin] Allergy (Verified 02/13/18 13:26) carisoprodol [From Soma] Allergy (Verified 02/13/18 13:28) cefaclor [From Ceclor] Allergy (Verified 02/13/18 13:26) ceftibuten dihydrate [From Cedax] Allergy (Verified 02/13/18 13:26) cephalexin monohydrate [From Keflex] Allergy (Verified 02/13/18 13:26) clarithromycin [From Biaxin] Allergy (Verified 02/13/18 13:26) clotrimazole [From Lotrimin] Allergy (Verified 02/13/18 13:26) codeine [Codeine] Allergy (Verified 02/13/18 13:26) erythromycin base [Erythromycin Base] Allergy (Verified 02/13/18 13:26) ketorolac tromethamine [From Toradol] Allergy (Verified 02/13/18 13:26) loracarbef [From Lorabid] Allergy (Verified 02/13/18 13:26) meperidine HCl [From Demerol] Allergy (Verified 02/13/18 13:26) morphine Allergy (Verified 02/13/18 13:26) Norgestimate-Ethi *RETIRED-07/08/12 [From Ortho Tri-Cyclen (21)] Allergy ( Verified 02/13/18 13:26) Penicillins Allergy (Verified 02/13/18 13:26) prochlorperazine edisylate [From Compazine] Allergy (Verified 02/13/18 13:26) promethazine [From Phenergan] Allergy (Verified 07/28/18 19:14) Hives promethazine HCl [From Phenergan] Allergy (Verified 02/13/18 13:26) Sulfa (Sulfonamide Antibiotics) [Sulfa(Sulfonamide Antibiotics)] Allergy ( Verified 02/13/18 13:26) sumatriptan [From Imitrex] Allergy (Verified 02/13/18 13:26) melon Adverse Reaction (Verified 07/09/18 03:05) Home Medications: Budesonide/Formoterol Fumarate [Symbicort 160-4.5 Mcg Inhaler] 2 puff IH BID [History] Bumetanide [Bumex] 4 mg PO DAILY 10/10/15 [History] Cholecalciferol (Vitamin D3) [Vitamin D3] 2,000 unit PO DAILY 10/10/15 [History] Fenofibrate 160 mg PO DAILY 10/10/15 [History] Montelukast Sodium 25 mg PO DAILY 10/10/15 [History] Nitroglycerin 0.4 mg Tablet [Nitrostat 0.4 MG Tablet] 0.4 mg SL Q5MIN PRN MR X 3 PRN 10/10/15 [History] PANTOPRAZOLE 40 mg Tablet [Protonix 40MG Tablet] 40 mg PO DAILY 10/10/15 [ History] Polyethylene Glycol 3350 17 gm [Miralax Powder 17GM PACKET] 17 gm PO UD PRN 10/10/15 [History] Potassium Chloride 20 Meq [Klor-Con 20 MEQ] 20 meq PO DAILY 10/10/15 [History] Divalproex Sodium [Divalproex Sodium ER] 500 mg PO BID 03/06/16 [History] Albuterol 2.5 mg/3 ml Neb [Proventil 2.5 mg/3 ml Neb] 1 ea IH QID PRN PRN 07/08/18 [History] Albuterol Sulfate [Proair Hfa] 2 puffs IH QID 07/08/18 [History] Ondansetron ODT 4 MG [Zofran Odt 4 mg] 1 tab PO Q4-6HPRN PRN 07/08/18 [ History] Rosuvastatin Calcium [Crestor] 40 mg PO DAILY 07/08/18 [History] Fluconazole 150 mg PO DAILY 07/28/18 [History] Insulin Glargine,Hum.rec.anlog [Basaglar Kwikpen U-100] 100 unit SQ 07/28/18 [ History] Levothyroxine Sodium 112 Mcg [Synthroid 112 Mcg] 212 mg PO DAILY 07/28/18 [ History] Lisinopril 10 mg [Zestril 10 MG] 10 mg PO DAILY 07/28/18 [History] Lubiprostone [Amitiza] 24 mcg PO 07/28/18 [History] Magnesium Oxide [Magnesium] 400 mg PO CLARIFY 07/28/18 [History] Hx Tetanus, Diphtheria Vaccination/Date Given: Yes (4 years ago?) Hx Influenza Vaccination/Date Given: No Hx Pneumococcal Vaccination/Date Given: No Immunizations Up to Date: Yes - Review of Systems Constitutional: No Fever, No Chills Eyes: Photophobia Ears, Nose, & Throat: No Symptoms Respiratory: No Cough, No Dyspnea Cardiac: No Chest Pain, No Edema, No Syncope Abdominal/Gastrointestinal: Nausea, No Abdominal Pain, No Vomiting, No Diarrhea Musculoskeletal: No Back Pain, No Neck Pain Neurological: No Dizziness, No Focal Weakness, No Sensory Changes - Past Medical History Pertinent Past Medical History: Yes Neurological History: Migraines ENT History: Cataracts Cardiac History: Congestive Heart Failure, High Cholesterol, Hypertension, Other Respiratory History: Asthma, COPD, Sleep Apnea Endocrine Medical History: Diabetes Type II, Hypothyroidism, Other Musculoskeletal History: Arthritis, Fibromyalgia GI Medical History: Esophageal Disorder History: Renal Disease Psycho-Social History: Anxiety, Bipolar, Depression Female Reproductive Disorders: No Pertinent History Other Medical History: 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, Mitral prolapse valve, pulmonary hypertension - Past Surgical History Past Surgical History: Yes Neuro Surgical History: Other Cardiac: Cardiac Catheterization Respiratory: No Pertinent History Gastrointestinal: Cholecystectomy Genitourinary: No Pertinent History Musculoskeletal: Orthopedic Surgery Female Surgical History: Hysterectomy Other Surgical History: carpal tunnel, trigger finger, tendon on right arm, ulnar nerve surgery, clipped left eye muscle - Social History Smoking Status: Current every day smoker How long have you smoked: 40 yrs Exposure to second hand smoke: Yes Drug Use: none Patient Lives Alone: No - Nursing Vital Signs Nursing Vital Signs: Initial Vital Signs Temperature 98.6 F 07/28/18 19:08 Pulse Rate 76 07/28/18 19:08 Respiratory Rate 16 07/28/18 19:08 Blood Pressure 175/81 07/28/18 19:08 O2 Sat by Pulse Oximetry 98 07/28/18 19:08 Pain Scale Pain Intensity 8 - Physical Exam General Appearance: no apparent distress Eye Exam: PERRL/EOMI Ears, Nose, Throat Exam: normal ENT inspection, moist mucous membranes Neck Exam: normal inspection, supple, full range of motion, No meningismus Gastrointestinal/Abdominal Exam: soft, No tenderness, No distention Extremity Exam: normal inspection admissions evaluator Exam: normal speech, PERRL, No facial droop Motor/Sensory Exam: no motor deficit SpO2 Interpretation: normal SpO2: 98 - Course Nursing assessment & vital signs reviewed: Yes Ordered Tests: Medication Summary Discontinued Medications Generic Name Dose Route Start Last Admin Trade Name Bety PRN Reason Stop Dose Admin Hydromorphone HCl 2 mg 07/28/18 19:24 07/28/18 19:35 Dilaudid 4 Mg Tab PO 07/28/18 19:25 2 mg ONCE STA Administration Ondansetron HCl 4 mg 07/28/18 19:25 07/28/18 19:29 Zofran Odt 4 Mg PO 07/28/18 19:26 4 mg ONCE STA Administration Ondansetron HCl Confirm 07/28/18 19:27 Zofran Odt 4 Mg Administered 07/28/18 19:28 Dose 4 mg .ROUTE .STK-MED ONE - Progress Progress: unchanged Air Movement: good Progress Note: 07/28/18 19:31 Pt is well known to the ED. She is oming frequently with complains of migraines , and is asking for Dilaudid or Nubaine. Pt refuses Ultram and is allergic to all other meds. She is argumentative and aggressive. I did order Dilaudid 2mg PO and Zofran 4mg ODT. When pt is improved will D/C. I did discuss with pt the need to see a neurologist and new medications for preventing migraines. Pt is not interested. 07/28/18 20:03 Pt is feeling better and is ready for d/c. Blood Culture(s) Obtained: No Antibiotics given: No Discussed with : Hermilo Will see patient in: office Counseled pt/family regarding: need for follow-up - Departure Departure Disposition: Home Clinical Impression: Migraine Condition: Stable Critical Care Time: No Referrals: VAIBHAV CHURCHILL MD [Primary Care Provider] - Additional Instructions: F/U with PCP and Neurology for preventative therapy.
[2018-07-28 20:07] VITALS: BP 158/76; O2SAT 97
== END 2018-07-28 20:12 | disposition home or self-care (01) ==
LOC: ED 19:01
DX: G43.909 Migraine, unspecified, not intractable, without status migrainosus (principal); I50.9 Heart failure, unspecified; E78.00 Pure hypercholesterolemia, unspecified; I10 Essential (primary) hypertension; J44.9 Chronic obstructive pulmonary disease, unspecified; M79.7 Fibromyalgia; M19.90 Unspecified osteoarthritis, unspecified site; E11.9 Type 2 diabetes mellitus without complications; E03.9 Hypothyroidism, unspecified; F41.9 Anxiety disorder, unspecified; F31.9 Bipolar disorder, unspecified; I34.1 Nonrheumatic mitral (valve) prolapse; Z79.899 Other long term (current) drug therapy
CPT/HCPCS: 99283; Q0162; A9270-GY

== ENCOUNTER 2018-08-06 22:22 | Observation (INO) | payer MEDICARE ==
[2018-08-06] MEDS ORDERED: DUONEB 0.5-3 MG/3 ml Neb IH ONE ×2 (22:37→22:43)
[2018-08-06 22:44] LABS: Granulocyte Absolute (ANC) 3.15 (1.4-6.9); Hematocrit 40.2 % (35-47); Hemoglobin 14.1 gm/dl (12.0-16.0); Mean Cell Volume 89.1 fl (78-100); Mean Corpuscular Hemoglobin 31.3 pg (26-32); Mean Corpuscular Hgb Concent. 35.1 g/dl (32-36); Mean Platelet Volume 13.7 fl (6-9.5); Platelet Count 114 K/mm3 (150-450); Red Blood Count 4.51 M/mm3 (4.1-5.4); Red Cell Distribution Width 12.7 % (11.5-14.0); White Blood Count 5.2 K/mm3 (4.0-10.5)
--- NOTE | 2018-08-06 22:45 | ERPHSYRPT ---
- History of Present Illness Time Seen by Provider: 08/06/18 22:28 Source: patient Exam Limitations: no limitations Patient Subjective Stated Complaint: pt states she has been felling sick and has had a cough for last 3 days. states she hasnt been able to eat. blood usgar at home was reading high on her monitor. Triage Nursing Assessment: pt alert and oriented, asnwers questions approp. pt arrive per ambulance. steps over from cot to er stretcher with minimal assist. respirations nonlbored with lungs cta. occasional hacking cough noted. pt reports increased pain with cough. skin pink warm and dry. Physician History: Pt started c/o productive cough,. yellow phlegm again 3 days ago, c/o generalized soreness, aching, nausea, chest pain upon coughing, denies vomiting , diarrhea, severe dyspnea, distress, or diaphoresis. Her blood sugar was checked by EMS, was found immeasurably high. Timing/Duration: day(s) (3) Cough Quality/Degree: moderate, productive cough, sputum Possible Cause: frequent episodes Modifying Factors: Improves With: nothing Associated Symptoms: fever, chills, chest pain/soreness, cough, muscle aches, shortness of breath, sore throat, wheezing Allergies/Adverse Reactions: adhesive Allergy (Intermediate, Verified 08/06/18 22:35) Rash ciprofloxacin HCl [From Cipro] Allergy (Intermediate, Verified 08/06/18 22:35) Rash gatifloxacin [From Tequin] Allergy (Intermediate, Verified 08/06/18 22:35) Rash levofloxacin [From Levaquin] Allergy (Intermediate, Verified 08/06/18 22:35) Rash aspirin Allergy (Verified 08/06/18 22:35) bupropion HCl [From Wellbutrin] Allergy (Verified 08/06/18 22:35) carisoprodol [From Soma] Allergy (Verified 08/06/18 22:35) cefaclor [From Ceclor] Allergy (Verified 08/06/18 22:35) ceftibuten dihydrate [From Cedax] Allergy (Verified 08/06/18 22:35) cephalexin monohydrate [From Keflex] Allergy (Verified 08/06/18 22:35) clarithromycin [From Biaxin] Allergy (Verified 08/06/18 22:35) clotrimazole [From Lotrimin] Allergy (Verified 08/06/18 22:35) codeine [Codeine] Allergy (Verified 08/06/18 22:35) erythromycin base [Erythromycin Base] Allergy (Verified 08/06/18 22:35) ketorolac tromethamine [From Toradol] Allergy (Verified 08/06/18 22:35) loracarbef [From Lorabid] Allergy (Verified 08/06/18 22:35) meperidine HCl [From Demerol] Allergy (Verified 08/06/18 22:35) morphine Allergy (Verified 08/06/18 22:35) Norgestimate-Ethi *RETIRED-07/08/12 [From Ortho Tri-Cyclen (21)] Allergy ( Verified 08/06/18 22:35) Penicillins Allergy (Verified 08/06/18 22:35) prochlorperazine edisylate [From Compazine] Allergy (Verified 08/06/18 22:35) promethazine [From Phenergan] Allergy (Verified 08/06/18 22:35) Hives promethazine HCl [From Phenergan] Allergy (Verified 08/06/18 22:35) Sulfa (Sulfonamide Antibiotics) [Sulfa(Sulfonamide Antibiotics)] Allergy ( Verified 08/06/18 22:35) sumatriptan [From Imitrex] Allergy (Verified 08/06/18 22:35) melon Adverse Reaction (Verified 08/06/18 22:35) Home Medications: Budesonide/Formoterol Fumarate [Symbicort 160-4.5 Mcg Inhaler] 2 puff IH BID [History] Bumetanide [Bumex] 4 mg PO BID 10/10/15 [History] Cholecalciferol (Vitamin D3) [Vitamin D3] 2,000 unit PO UD 10/10/15 [History] Fenofibrate 160 mg PO DAILY 10/10/15 [History] Montelukast Sodium 10 mg PO DAILY 10/10/15 [History] Nitroglycerin 0.4 mg Tablet [Nitrostat 0.4 MG Tablet] 0.4 mg SL Q5MIN PRN MR X 3 PRN 10/10/15 [History] PANTOPRAZOLE 40 mg Tablet [Protonix 40MG Tablet] 40 mg PO DAILY 10/10/15 [ History] Polyethylene Glycol 3350 17 gm [Miralax Powder 17GM PACKET] 17 gm PO UD PRN 10/10/15 [History] Potassium Chloride 20 Meq [Klor-Con 20 MEQ] 20 meq PO DAILY 10/10/15 [History] Divalproex Sodium [Divalproex Sodium ER] 500 mg PO TID 03/06/16 [History] Albuterol 2.5 mg/3 ml Neb [Proventil 2.5 mg/3 ml Neb] 1 ea IH QID PRN PRN 07/08/18 [History] Albuterol Sulfate [Proair Hfa] 2 puffs IH QID 07/08/18 [History] Ondansetron ODT 4 MG [Zofran Odt 4 mg] 1 tab PO Q4-6HPRN PRN 07/08/18 [ History] Rosuvastatin Calcium [Crestor] 40 mg PO DAILY 07/08/18 [History] Insulin Glargine,Hum.rec.anlog [Basaglar Kwikpen U-100] 20 unit SQ BID 07/28/18 [History] Levothyroxine Sodium 112 Mcg [Synthroid 112 Mcg] 212 mcg PO DAILY 07/28/18 [History] Lisinopril 10 mg [Zestril 10 MG] 10 mg PO DAILY 07/28/18 [History] Lubiprostone [Amitiza] 24 mcg PO DAILY 07/28/18 [History] Magnesium Oxide [Magnesium] 400 mg PO DAILY 07/28/18 [History] Fluconazole [Diflucan ] 08/06/18 [History] Hx Tetanus, Diphtheria Vaccination/Date Given: Yes (4 years ago?) Hx Influenza Vaccination/Date Given: No Hx Pneumococcal Vaccination/Date Given: No Immunizations Up to Date: Yes - Review of Systems Constitutional: Fever, Chills Eyes: No Symptoms Ears, Nose, & Throat: Nose Congestion, Throat Pain Respiratory: Cough, Dyspnea Cardiac: Chest Pain Abdominal/Gastrointestinal: Nausea Skin: No Symptoms Neurological: Headache All Other Systems: Reviewed and Negative - Past Medical History Pertinent Past Medical History: Yes Neurological History: Migraines ENT History: Cataracts Cardiac History: Congestive Heart Failure, High Cholesterol, Hypertension, Other Respiratory History: Asthma, COPD, Sleep Apnea Endocrine Medical History: Diabetes Type II, Hypothyroidism, Other Musculoskeletal History: Arthritis, Fibromyalgia GI Medical History: Esophageal Disorder History: Renal Disease Psycho-Social History: Anxiety, Bipolar, Depression Female Reproductive Disorders: No Pertinent History Other Medical History: 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, Mitral prolapse valve, pulmonary hypertension - Past Surgical History Past Surgical History: Yes Neuro Surgical History: Other Cardiac: Cardiac Catheterization Respiratory: No Pertinent History Gastrointestinal: Cholecystectomy Genitourinary: No Pertinent History Musculoskeletal: Orthopedic Surgery Female Surgical History: Hysterectomy Other Surgical History: carpal tunnel, trigger finger, tendon on right arm, ulnar nerve surgery, clipped left eye muscle, lt knee - Social History Smoking Status: Current every day smoker How long have you smoked: 40 yrs Exposure to second hand smoke: Yes Drug Use: none Patient Lives Alone: No - Nursing Vital Signs Nursing Vital Signs: Initial Vital Signs Temperature 98.1 F 08/06/18 22:26 Pulse Rate 78 08/06/18 22:26 Respiratory Rate 18 08/06/18 22:26 Blood Pressure 162/61 08/06/18 22:26 O2 Sat by Pulse Oximetry 97 08/06/18 22:26 Pain Scale Pain Intensity 4 - Physical Exam General Appearance: no apparent distress Eye Exam: eyes nml inspection Ears, Nose, Throat Exam: normal ENT inspection, pharynx normal, moist mucous membranes Respiratory Exam: airway intact, rhonchi (few, bilateral), No chest tenderness, No respiratory distress Cardiovascular Exam: regular rate/rhythm, murmur (soft, ejection murmur at left sternal border), capillary refill <2 sec Gastrointestinal/Abdomen Exam: soft, normal bowel sounds, No tenderness, No distention, No mass, No guarding, No ecchymosis, No pulsatile mass Back Exam: normal inspection, No CVA tenderness Extremity Exam: normal inspection, No calf tenderness, No jamil's sign Neurologic Exam: alert, 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, cooperative, normal mood/affect Skin Exam: normal color, warm, dry, No rash, No petechiae, No cyanosis Lymphatic Exam: No adenopathy SpO2 Interpretation: normal SpO2: 97 O2 Delivery: Room Air - Course Nursing assessment & vital signs reviewed: Yes EKG Interpreted by Me: RATE (79/min), Left [place] Deviation, NORMAL INTERVALS, NORMAL QRS, Non-specific ST Changes - Radiology Exams Chest X-ray Interpretation: Interpreted by me, Negative Ordered Tests: Active Orders 24 hr Category Date Time Status EKG-ER Only STAT Care 08/06/18 22:37 Active CHEST 2 VIEWS (PA AND LAT) Stat Exams 08/06/18 23:16 Taken ABG [ARTERIAL BLOOD GASES] Stat Lab 08/06/18 22:55 Completed CBC W DIFF Stat Lab 08/06/18 22:30 Completed CMP Stat Lab 08/06/18 22:30 Completed Lactic Acid Stat Lab 08/06/18 22:55 Results MAGNESIUM Stat Lab 08/06/18 22:30 Completed Manual Differential NC Stat Lab 08/06/18 22:30 Completed NT PRO BNP Stat Lab 08/06/18 22:30 Completed PROTIME WITH INR Stat Lab 08/06/18 22:30 Completed PTT Stat Lab 08/06/18 22:30 Completed TROPONIN Q3H Lab 08/06/18 22:30 Completed TROPONIN Q3H Lab 08/07/18 01:45 Ordered TROPONIN Q3H Lab 08/07/18 04:45 Ordered TROPONIN Q3H Lab 08/07/18 07:45 Ordered TROPONIN Q3H Lab 08/07/18 10:45 Ordered UA W/RFX UR CULTURE Stat Lab 08/06/18 23:32 Ordered Peak Expiratory Flow Rate ONCE RT 08/06/18 23:02 Active Respiratory Therapy Assessment DAILY RT 08/06/18 23:02 Active Medication Summary Generic Name Dose Route Start Last Admin Trade Name Freq PRN Reason Stop Dose Admin Sodium Chloride 1,000 mls @ 999 mls/hr 08/06/18 23:16 08/06/18 23:25 Sodium Chloride 0.9% 1000 Ml IV 08/07/18 00:16 999 mls/hr .Q1H1M STA Administration Discontinued Medications Generic Name Dose Route Start Last Admin Trade Name Freq PRN Reason Stop Dose Admin Albuterol/Ipratropium 3 ml 08/06/18 22:37 08/06/18 22:45 Duoneb 0.5-3 Mg/3 Ml Neb IH 08/06/18 22:38 3 ml STAT ONE Administration Albuterol/Ipratropium Confirm 08/06/18 22:43 Duoneb 0.5-3 Mg/3 Ml Neb Administered 08/06/18 22:44 Dose 3 ml IH .STK-MED ONE Sodium Chloride Confirm 08/06/18 23:20 Sodium Chloride 0.9% 1000 Ml Administered 08/06/18 23:21 Dose 1,000 mls @ ud .ROUTE .STK-MED ONE Insulin Human Regular 10 unit 08/06/18 23:15 08/06/18 23:25 Novolin R IV 08/06/18 23:16 10 unit STAT ONE Administration Insulin Human Regular Confirm 08/06/18 23:20 Novolin R Administered 08/06/18 23:21 Dose 10 unit .ROUTE .STK-MED ONE Lab/Rad Data: Laboratory Result Diagrams 08/06/18 22:30 08/06/18 22:30 Laboratory Results 08/06/18 08/06/18 08/06/18 Range/Units 22:55 22:55 22:30 WBC (4.0-10.5) K/mm3 RBC (4.1-5.4) M/mm3 Hgb (12.0-16.0) gm/dl Hct (35-47) % MCV (78-100) fl MCH (26-32) pg MCHC (32-36) g/dl RDW (11.5-14.0) % Plt Count (150-450) K/mm3 MPV (6-9.5) fl Absolute Granulocytes (1.4-6.9) PT (9.95-12.35) SECONDS INR (0.8-3.0) APTT (25.3-37.0) SECONDS Puncture Site RIGHT BRACHIAL pCO2 39 (35-45) mmHg pO2 70 L (75-100) mmHg Base Excess 2.3 H (-2.0-2.0) O2 Saturation 89.8 L (94-100) g/dF ABG pH 7.44 (7.35-7.45) ABG HCO3 26.5 (22-28) ABG O2 Sat (Measured) 92.4 L (95-100) % Robert Test NOT APPLICABLE A-a Gradient 31 a/A Ratio 0.69 Hemoglobin 14.3 Carboxyhemoglobin 2.7 (0.0-6.9) % THgb Methemoglobin 0.0 L (1.4-1.5) % Temperature 37.0 C POC O2 Flow Rate 21 % Sodium (137-145) mmol/L Potassium 3.8 (3.5-5.1) mmol/L Chloride (98-107) mmol/L Carbon Dioxide (22-30) mmol/L Anion Gap (5-15) MEQ/L BUN (7-17) mg/dL Creatinine (0.52-1.04) mg/dL Estimated GFR ML/MIN Glucose (74-106) mg/dL Lactic Acid 3.1 H (0.4-2.0) Calcium (8.4-10.2) mg/dL Magnesium (1.6-2.3) mg/dL Total Bilirubin (0.2-1.3) mg/dL AST (14-36) U/L ALT (0-35) U/L Alkaline Phosphatase (38-126) U/L Troponin I < 0.012 (0.000-0.034) ng/mL NT-Pro-B Natriuret Pep (0-900) pg/mL Serum Total Protein (6.3-8.2) g/dL Albumin (3.5-5.0) g/dL 08/06/18 08/06/18 08/06/18 Range/Units 22:30 22:30 22:30 WBC 5.2 (4.0-10.5) K/mm3 RBC 4.51 (4.1-5.4) M/mm3 Hgb 14.1 (12.0-16.0) gm/dl Hct 40.2 (35-47) % MCV 89.1 (78-100) fl MCH 31.3 (26-32) pg MCHC 35.1 (32-36) g/dl RDW 12.7 (11.5-14.0) % Plt Count 114 L (150-450) K/mm3 MPV 13.7 H (6-9.5) fl Absolute Granulocytes 3.15 (1.4-6.9) PT 11.7 (9.95-12.35) SECONDS INR 1.01 (0.8-3.0) APTT 26.8 (25.3-37.0) SECONDS Puncture Site pCO2 (35-45) mmHg pO2 (75-100) mmHg Base Excess (-2.0-2.0) O2 Saturation (94-100) g/dF ABG pH (7.35-7.45) ABG HCO3 (22-28) ABG O2 Sat (Measured) (95-100) % Robert Test A-a Gradient a/A Ratio Hemoglobin Carboxyhemoglobin (0.0-6.9) % THgb Methemoglobin (1.4-1.5) % Temperature C POC O2 Flow Rate % Sodium 126 L (137-145) mmol/L Potassium 4.2 (3.5-5.1) mmol/L Chloride 85 L (98-107) mmol/L Carbon Dioxide 26 (22-30) mmol/L Anion Gap 19.6 H (5-15) MEQ/L BUN 31 H (7-17) mg/dL Creatinine 1.31 H (0.52-1.04) mg/dL Estimated GFR 45.5 ML/MIN Glucose 707 H* (74-106) mg/dL Lactic Acid (0.4-2.0) Calcium 9.9 (8.4-10.2) mg/dL Magnesium 1.9 (1.6-2.3) mg/dL Total Bilirubin 0.60 (0.2-1.3) mg/dL AST 43 H (14-36) U/L ALT 25 (0-35) U/L Alkaline Phosphatase 139 H (38-126) U/L Troponin I (0.000-0.034) ng/mL NT-Pro-B Natriuret Pep 291 (0-900) pg/mL Serum Total Protein 7.9 (6.3-8.2) g/dL Albumin 4.2 (3.5-5.0) g/dL - Progress Progress: improved Air Movement: good Progress Note: 08/06/18 23:33 Blood sugar : 707, lactic acid: 3.1, ABG: slight hypoxemia, no metabolic acidosis,pt started on IV saline boluses, given 10 units f IV insulin and started on IV Insulin drip 5 units/hr, All labs and Chest X ray reviewed, called Dr Churchill, discussed with him as well as patient's current condition, he agreed to admit her with Hyperglycemia, URI, to ICU, patient was informed, and agreed. She has been stable. Blood Culture(s) Obtained: No Antibiotics given: No Discussed with Dr.: Hermilo Will see patient in: hospital (observation) Counseled pt/family regarding: lab results, diagnosis, rad results - Departure Departure Disposition: Observation Clinical Impression: Hyperglycemia, Bronchitis, COPD with exacerbation Condition: Stable Critical Care Time: No Referrals: VAIBHAV CHURCHILL MD [Primary Care Provider] - Instructions: Cough, Adult (DC)
[2018-08-06 22:54] LABS: INR 1.01 (0.8-3.0); PROTIME 11.7 SECONDS (9.95-12.35)
[2018-08-06 22:57] LABS: PTT 26.8 SECONDS (25.3-37.0)
[2018-08-06 23:00] LABS: A-aADO2 31; ABG HEMOGLOBIN 14.3; ABG POTASSIUM 3.8 (3.5-5.1); ABG SITE RIGHT BRACHIAL; ARTERIAL BLD GAS O2 SATURATION 92.4 % (95-100); ARTERIAL BLOOD GAS BASE EXCESS 2.3 (-2.0-2.0); ARTERIAL BLOOD GAS FIO2 21 %; ARTERIAL BLOOD GAS PCO2 39 mmHg (35-45); ARTERIAL BLOOD GAS PO2 70 mmHg (75-100); ARTERIAL BLOOD GAS pH 7.44 (7.35-7.45); CARBOXYHEMOGLOBIN 2.7 % THgb (0.0-6.9); HCO3- 26.5 (22-28); HGB O2 SAT 89.8 g/dF (94-100); paO2 pAO1 0.69
[2018-08-06 23:01] LABS: Lactic Acid 3.1 (0.4-2.0)
[2018-08-06 23:07] LABS: ALBUMIN 4.2 g/dL (3.5-5.0); ANION GAP 19.6 MEQ/L (5-15); BILIRUBIN,TOTAL 0.6 mg/dL (0.2-1.3); Calcium 9.9 mg/dL (8.4-10.2); Creatinine 1 1.31 mg/dL (0.52-1.04); MAGNESIUM 1.9 mg/dL (1.6-2.3); Potassium 4.2 mmol/L (3.5-5.1); Total Protein 7.9 g/dL (6.3-8.2)
[2018-08-06] MEDS ORDERED: NovoLIN R IV ONE (23:15)
[2018-08-06] MEDS ORDERED: Sodium Chloride 0.9% 1000 ML 1,000 ML IV STA (23:16)
[2018-08-06] MEDS ORDERED: NovoLIN R ONE ×2 (23:20→23:51)
[2018-08-06] MEDS ORDERED: Sodium Chloride 0.9% 1000 ML 1,000 ML ONE (23:20)
[2018-08-06 23:33] LABS: INFLUENZA A NEGATIVE (NEGATIVE); INFLUENZA B NEGATIVE (NEGATIVE); RESPIRATORY SYNCTIAL VIRUS NEGATIVE (Negative)
[2018-08-06] MEDS ORDERED: PHENERGAN WITH CODEINE SYRUP PO ONE (23:36)
[2018-08-06] MEDS ORDERED: ZOFRAN ODT 4 MG PO ONE (23:38)
[2018-08-06] MEDS ORDERED: NOVOLIN R INSULIN (FOR DRIPS)** 100 UNITS in Sodium Chloride 0.9% 100 ML IVPB 100 ML IV PRN (23:39)
[2018-08-06] MEDS ORDERED: Sodium Chloride 0.9% 100 ML IVPB 100 ML IV ONE (23:51)
[2018-08-06] MEDS ORDERED: ZOFRAN ODT 4 MG ONE (23:51)
[2018-08-06 23:57] LABS: Appearance CLEAR (CLEAR); Bacteria RARE /HPF (NEGATIVE); Bilirubin NEGATIVE (NEGATIVE); Blood SMALL Ery/ul (0-5); Epithelial Cells RARE /HPF (FEW); Glucose >=500 mg/dL (NEGATIVE); Ketones NEGATIVE (NEGATIVE); Leukocyte Esterase NEGATIVE (NEGATIVE); Mucus SLIGHT /HPF (NEGATIVE); Nitrite NEGATIVE (NEGATIVE); Protein,Urine Dip 100 (Negative); RBC 0-2 /HPF (0-2); Specific Gravity 1.023 (1.005-1.025); Urobilinogen NEGATIVE mg/dL (0-1); WBC 0-2 /HPF (0-5)
[2018-08-07] MEDS ORDERED: Nubain 10 MG/ML IV ONE (00:08)
[2018-08-07 00:14] LABS: Eosinophil 3 % (0.00-3.0); Lymphocytes 25 % (24-44); Monocyte 6 % (0.0-12.0); Neutrophils 66 % (36.0-66.0); Platelet Estimate NORMAL (NORMAL); Total Cells Counted 100
[2018-08-07] MEDS ORDERED: Nubain 10 MG/ML ONE (00:15)
[2018-08-07] MEDS: Sodium Chloride 0.9% 1000 ML 1,000 ML IV SCH ×4 (00:52→21:59)
[2018-08-07] MEDS ORDERED: DUONEB 0.5-3 MG/3 ml Neb IH SCH (03:00)
[2018-08-07 05:05] LABS: Hemoglobin 13.1 gm/dl (12.0-16.0); Mean Cell Volume 88.1 fl (78-100); Mean Corpuscular Hemoglobin 31.2 pg (26-32); Mean Corpuscular Hgb Concent. 35.4 g/dl (32-36); Mean Platelet Volume 12.8 fl (6-9.5); Platelet Count 93 K/mm3 (150-450); Red Cell Distribution Width 12.3 % (11.5-14.0)
[2018-08-07 05:26] LABS: ANION GAP 13.1 MEQ/L (5-15); Calcium 9.3 mg/dL (8.4-10.2); Creatinine 1 1.28 mg/dL (0.52-1.04); Potassium 3.6 mmol/L (3.5-5.1)
[2018-08-07] MEDS ORDERED: DUONEB 0.5-3 MG/3 ml Neb IH PRN (07:00)
[2018-08-07] MEDS ORDERED: PROVENTIL COMMON CANISTER IH PRN (07:00)
[2018-08-07] MEDS ORDERED: Lantus Insulin SQ ONE (08:21)
--- NOTE | 2018-08-07 08:42 | PCM.SSS ---
History of Present Illness - Chief Complaint Chief Complaint: Hyperglycemia History of Present Illness: is a 53 year old female pt of Dr. Akhtar with DM (uncontrolled), COPD , IBS, bipolar d/o, asthma, Dickey's esophagus, arthritis, HTN, CHF, pulmonary HTN, and chronic kidney disease who was admitted through ER with 3d of worsening cough and BS of 707. When she checked her BS at home it read "HI" so she called EMS and they could not get a reading either. Her CXR here read as neg by ER doctor; final read pending. She actually had a cough x 3 weeks, but worse for the past 3d. Had been a patient of Dr. Bolanos until last month when she saw Dr. Akhtar in hospital follow up. She is also, per his note, supposed to see Dr. Reno but can 't get a ride there. - Review of Systems Respiratory: Cough Cardiac: Chest Pain (with cough) Neurological: Dizziness (yesterday morning) Psychological: No Suicidal Ideations All Other Systems: Reviewed and Negative Medications & Allergies Home Medications: Home Medication List Budesonide/Formoterol Fumarate [Symbicort 160-4.5 Mcg Inhaler] 2 puff IH BID [History Confirmed 08/06/18] Bumetanide [Bumex] 4 mg PO BID 10/10/15 [History Confirmed 08/06/18] Cholecalciferol (Vitamin D3) [Vitamin D3] 2,000 unit PO UD 10/10/15 [History Confirmed 08/06/18] Fenofibrate 160 mg PO DAILY 10/10/15 [History Confirmed 08/06/18] Montelukast Sodium 10 mg PO DAILY 10/10/15 [History Confirmed 08/06/18] Nitroglycerin 0.4 mg Tablet [Nitrostat 0.4 MG Tablet] 0.4 mg SL Q5MIN PRN MR X 3 PRN 10/10/15 [History Confirmed 08/06/18] PANTOPRAZOLE 40 mg Tablet [Protonix 40MG Tablet] 40 mg PO DAILY 10/10/15 [ History Confirmed 08/06/18] Polyethylene Glycol 3350 17 gm [Miralax Powder 17GM PACKET] 17 gm PO UD PRN 10/10/15 [History Confirmed 08/06/18] Potassium Chloride 20 Meq [Klor-Con 20 MEQ] 20 meq PO DAILY 10/10/15 [History Confirmed 08/06/18] Divalproex Sodium [Divalproex Sodium ER] 500 mg PO TID 03/06/16 [History Confirmed 08/06/18] Albuterol 2.5 mg/3 ml Neb [Proventil 2.5 mg/3 ml Neb] 1 ea IH QID PRN PRN 07/08/18 [History Confirmed 08/06/18] Albuterol Sulfate [Proair Hfa] 2 puffs IH QID 07/08/18 [History Confirmed ] Rosuvastatin Calcium [Crestor] 40 mg PO DAILY 07/08/18 [History Confirmed ] Verapamil HCl [Verapamil ER] 240 mg PO DAILY #30 tablet.er 07/09/18 [Rx Confirmed 08/06/18] Insulin Glargine,Hum.rec.anlog [Basaglar Kwikpen U-100] 20 unit SQ BID 07/28/18 [History Confirmed 08/06/18] Levothyroxine Sodium 112 Mcg [Synthroid 112 Mcg] 212 mcg PO DAILY 07/28/18 [History Confirmed 08/06/18] Lisinopril 10 mg [Zestril 10 MG] 10 mg PO DAILY 07/28/18 [History Confirmed 08/06/18] Lubiprostone [Amitiza] 24 mcg PO DAILY 07/28/18 [History Confirmed 08/06/18] Magnesium Oxide [Magnesium] 400 mg PO DAILY 07/28/18 [History Confirmed 08/06/18 ] Azithromycin [Zithromax] 250 mg PO DAILY #4 tablet 08/07/18 [Rx] Guaifenesin 600 mg ER [Mucinex 600MG ER Tabs] 600 mg PO BID PRN #30 tablet 08/07/18 [Rx] Allergies/Adverse Reactions: Allergies Allergy/AdvReac Type Severity Reaction Status Date / Time adhesive Allergy Intermediate Rash Verified 08/06/18 22:35 ciprofloxacin HCl Allergy Intermediate Rash Verified 08/06/18 22:35 [From Cipro] gatifloxacin [From Tequin] Allergy Intermediate Rash Verified 08/06/18 22:35 levofloxacin [From Levaquin] Allergy Intermediate Rash Verified 08/06/18 22:35 aspirin Allergy Verified 08/06/18 22:35 bupropion HCl Allergy Verified 08/06/18 22:35 [From Wellbutrin] carisoprodol [From Soma] Allergy Verified 08/06/18 22:35 cefaclor [From Ceclor] Allergy Verified 08/06/18 22:35 ceftibuten dihydrate Allergy Verified 08/06/18 22:35 [From Cedax] cephalexin monohydrate Allergy Verified 08/06/18 22:35 [From Keflex] clarithromycin [From Biaxin] Allergy Verified 08/06/18 22:35 clotrimazole [From Lotrimin] Allergy Verified 08/06/18 22:35 codeine [Codeine] Allergy Verified 08/06/18 22:35 erythromycin base Allergy Verified 08/06/18 22:35 [Erythromycin Base] ketorolac tromethamine Allergy Verified 08/06/18 22:35 [From Toradol] loracarbef [From Lorabid] Allergy Verified 08/06/18 22:35 meperidine HCl [From Demerol] Allergy Verified 08/06/18 22:35 morphine Allergy Verified 08/06/18 22:35 Norgestimate-Ethi Allergy Verified 08/06/18 22:35 *RETIRED-07/08/12 [From Ortho Tri-Cyclen (21)] Penicillins Allergy Verified 08/06/18 22:35 prochlorperazine edisylate Allergy Verified 08/06/18 22:35 [From Compazine] promethazine [From Phenergan] Allergy Hives Verified 08/06/18 22:35 promethazine HCl Allergy Verified 08/06/18 22:35 [From Phenergan] Sulfa (Sulfonamide Allergy Verified 08/06/18 22:35 Antibiotics) [Sulfa(Sulfonamide Antibiotics)] sumatriptan [From Imitrex] Allergy Verified 08/06/18 22:35 melon AdvReac Verified 08/06/18 22:35 - Past Medical History Past Medical History: Yes Neurological History: Migraines ENT History: Cataracts Cardiac History: Congestive Heart Failure, High Cholesterol, Hypertension, Other Respiratory History: Asthma, COPD, Sleep Apnea Endocrine Medical History: Diabetes Type II, Hypothyroidism, Other Musculoskelatal History: Arthritis, Fibromyalgia GI Medical History: Esophageal Disorder History: Renal Disease Pyscho-Social History: Anxiety, Bipolar, Depression Reproductive Disorders: No Pertinent History Comment: 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, Mitral prolapse valve, pulmonary hypertension - Female History Are you now?: No - Past Surgical History Past Surgical History: Yes Neuro Surgical History: Other Cardiac History: Cardiac Catheterization Respiratory Surgery: No Pertinent History GI Surgical History: Cholecystectomy Genitourinary Surgical Hx: No Pertinent History Musculskeletal Surgical Hx: Orthopedic Surgery Female Surgical History: Hysterectomy Other Surgical History: carpal tunnel, trigger finger, tendon on right arm, ulnar nerve surgery, clipped left eye muscle, lt knee - Social History Smoking Status: Current every day smoker How long have you smoked: 40 yrs Exposure to second hand smoke: Yes Alcohol: None Drug Use: none - Physical Exam Vital Signs: Vital Signs - 24 hr Temp Pulse Resp BP Pulse Ox 08/07/18 07:31 69 17 08/07/18 07:30 97.8 F 70 20 143/51 93 L 08/07/18 05:27 67 21 95 08/07/18 04:00 98.2 F 62 18 138/51 98 08/07/18 01:34 78 14 96 08/07/18 01:02 98.5 F 75 26 H 144/86 95 08/07/18 01:00 97 08/06/18 23:40 97 08/06/18 23:05 75 18 98 08/06/18 22:26 98.1 F 78 20 162/61 97 General Appearance: no apparent distress, obese Neurologic Exam: alert, cooperative Eye Exam: eyes nml inspection Ears, Nose, Throat Exam: moist mucous membranes Neck Exam: normal inspection Respiratory Exam: diminished breath sounds, prolonged expirations, No crackles/ rales, No rhonchi, No wheezing Cardiovascular Exam: regular rate/rhythm, normal heart sounds, No murmur Gastrointestinal/Abdomen Exam: soft, normal bowel sounds, No tenderness, No distention, No mass, No guarding, No rebound Extremity Exam: No pedal edema, No swelling Skin Exam: normal color, warm, dry, No rash Results - Labs Lab/Micro Results: Accuchecks Date 08/07/18 Date 08/07/18 Date 08/07/18 Date 08/07/18 Date 08/07/18 Date 08/07/18 Date 08/07/18 Time 08:21 Time 07:20 Time 06:00 Time 05:00 Time 04:16 Time 03:11 Time 01:42 Accucheck Value: 146 Accucheck Value: 156 Accucheck Value: 173 Accucheck Value: 235 Accucheck Value: 271 Accucheck Value: 342 Accucheck Value: 399 Accucheck Value: 527 Lab Results-Last 24 Hours 08/06/18 08/06/18 08/06/18 Range/Units 22:30 22:30 22:30 WBC 5.2 (4.0-10.5) K/mm3 RBC 4.51 (4.1-5.4) M/mm3 Hgb 14.1 (12.0-16.0) gm/dl Hct 40.2 (35-47) % MCV 89.1 (78-100) fl MCH 31.3 (26-32) pg MCHC 35.1 (32-36) g/dl RDW 12.7 (11.5-14.0) % Plt Count 114 L (150-450) K/mm3 MPV 13.7 H (6-9.5) fl Absolute Granulocytes 3.15 (1.4-6.9) Segmented Neutrophils 66 (36.0-66.0) % Lymphocytes (Manual) 25 (24-44) % Monocytes (Manual) 6 (0.0-12.0) % Eosinophils (Manual) 3 (0.00-3.0) % Platelet Estimate NORMAL (NORMAL) RBC Morphology NORMAL PT 11.7 (9.95-12.35) SECONDS INR 1.01 (0.8-3.0) APTT 26.8 (25.3-37.0) SECONDS Puncture Site pCO2 (35-45) mmHg pO2 (75-100) mmHg Base Excess (-2.0-2.0) O2 Saturation (94-100) g/dF ABG pH (7.35-7.45) ABG HCO3 (22-28) ABG O2 Sat (Measured) (95-100) % Robert Test A-a Gradient a/A Ratio Hemoglobin Carboxyhemoglobin (0.0-6.9) % THgb Methemoglobin (1.4-1.5) % Temperature C POC O2 Flow Rate % Sodium 126 L (137-145) mmol/L Potassium 4.2 (3.5-5.1) mmol/L Chloride 85 L (98-107) mmol/L Carbon Dioxide 26 (22-30) mmol/L Anion Gap 19.6 H (5-15) MEQ/L BUN 31 H (7-17) mg/dL Creatinine 1.31 H (0.52-1.04) mg/dL Estimated GFR 45.5 ML/MIN Glucose 707 H* (74-106) mg/dL Lactic Acid (0.4-2.0) Calcium 9.9 (8.4-10.2) mg/dL Magnesium 1.9 (1.6-2.3) mg/dL Total Bilirubin 0.60 (0.2-1.3) mg/dL AST 43 H (14-36) U/L ALT 25 (0-35) U/L Alkaline Phosphatase 139 H (38-126) U/L Troponin I (0.000-0.034) ng/mL NT-Pro-B Natriuret Pep 291 (0-900) pg/mL Serum Total Protein 7.9 (6.3-8.2) g/dL Albumin 4.2 (3.5-5.0) g/dL Urine Color (YELLOW) Urine Appearance (CLEAR) Urine pH (5-6) Ur Specific Electra (1.005-1.025) Urine Protein (Negative) Urine Ketones (NEGATIVE) Urine Blood (0-5) Joseluis/ul Urine Nitrite (NEGATIVE) Urine Bilirubin (NEGATIVE) Urine Urobilinogen (0-1) mg/dL Ur Leukocyte Esterase (NEGATIVE) Urine WBC (Auto) (0-5) /HPF Urine RBC (Auto) (0-2) /HPF U Epithel Cells (Auto) (FEW) /HPF Urine Bacteria (Auto) (NEGATIVE) /HPF Urine Mucus (Auto) (NEGATIVE) /HPF Urine Culture Reflexed (NO) Urine Glucose (NEGATIVE) mg/dL Influenza Type A Ag (NEGATIVE) Influenza Type B Ag (NEGATIVE) RSV (PCR) (Negative) Group A Strep Antibody (NEGATIVE) Slides for Path Review 08/06/18 08/06/18 08/06/18 Range/Units 22:30 22:52 22:52 WBC (4.0-10.5) K/mm3 RBC (4.1-5.4) M/mm3 Hgb (12.0-16.0) gm/dl Hct (35-47) % MCV (78-100) fl MCH (26-32) pg MCHC (32-36) g/dl RDW (11.5-14.0) % Plt Count (150-450) K/mm3 MPV (6-9.5) fl Absolute Granulocytes (1.4-6.9) Segmented Neutrophils (36.0-66.0) % Lymphocytes (Manual) (24-44) % Monocytes (Manual) (0.0-12.0) % Eosinophils (Manual) (0.00-3.0) % Platelet Estimate (NORMAL) RBC Morphology PT (9.95-12.35) SECONDS INR (0.8-3.0) APTT (25.3-37.0) SECONDS Puncture Site pCO2 (35-45) mmHg pO2 (75-100) mmHg Base Excess (-2.0-2.0) O2 Saturation (94-100) g/dF ABG pH (7.35-7.45) ABG HCO3 (22-28) ABG O2 Sat (Measured) (95-100) % Robert Test A-a Gradient a/A Ratio Hemoglobin Carboxyhemoglobin (0.0-6.9) % THgb Methemoglobin (1.4-1.5) % Temperature C POC O2 Flow Rate % Sodium (137-145) mmol/L Potassium (3.5-5.1) mmol/L Chloride (98-107) mmol/L Carbon Dioxide (22-30) mmol/L Anion Gap (5-15) MEQ/L BUN (7-17) mg/dL Creatinine (0.52-1.04) mg/dL Estimated GFR ML/MIN Glucose (74-106) mg/dL Lactic Acid (0.4-2.0) Calcium (8.4-10.2) mg/dL Magnesium (1.6-2.3) mg/dL Total Bilirubin (0.2-1.3) mg/dL AST (14-36) U/L ALT (0-35) U/L Alkaline Phosphatase (38-126) U/L Troponin I < 0.012 (0.000-0.034) ng/mL NT-Pro-B Natriuret Pep (0-900) pg/mL Serum Total Protein (6.3-8.2) g/dL Albumin (3.5-5.0) g/dL Urine Color (YELLOW) Urine Appearance (CLEAR) Urine pH (5-6) Ur Specific Electra (1.005-1.025) Urine Protein (Negative) Urine Ketones (NEGATIVE) Urine Blood (0-5) Joseluis/ul Urine Nitrite (NEGATIVE) Urine Bilirubin (NEGATIVE) Urine Urobilinogen (0-1) mg/dL Ur Leukocyte Esterase (NEGATIVE) Urine WBC (Auto) (0-5) /HPF Urine RBC (Auto) (0-2) /HPF U Epithel Cells (Auto) (FEW) /HPF Urine Bacteria (Auto) (NEGATIVE) /HPF Urine Mucus (Auto) (NEGATIVE) /HPF Urine Culture Reflexed (NO) Urine Glucose (NEGATIVE) mg/dL Influenza Type A Ag NEGATIVE (NEGATIVE) Influenza Type B Ag NEGATIVE (NEGATIVE) RSV (PCR) NEGATIVE (Negative) Group A Strep Antibody NEGATIVE (NEGATIVE) Slides for Path Review 08/06/18 08/06/18 08/06/18 Range/Units 22:55 22:55 23:34 WBC (4.0-10.5) K/mm3 RBC (4.1-5.4) M/mm3 Hgb (12.0-16.0) gm/dl Hct (35-47) % MCV (78-100) fl MCH (26-32) pg MCHC (32-36) g/dl RDW (11.5-14.0) % Plt Count (150-450) K/mm3 MPV (6-9.5) fl Absolute Granulocytes (1.4-6.9) Segmented Neutrophils (36.0-66.0) % Lymphocytes (Manual) (24-44) % Monocytes (Manual) (0.0-12.0) % Eosinophils (Manual) (0.00-3.0) % Platelet Estimate (NORMAL) RBC Morphology PT (9.95-12.35) SECONDS INR (0.8-3.0) APTT (25.3-37.0) SECONDS Puncture Site RIGHT BRACHIAL pCO2 39 (35-45) mmHg pO2 70 L (75-100) mmHg Base Excess 2.3 H (-2.0-2.0) O2 Saturation 89.8 L (94-100) g/dF ABG pH 7.44 (7.35-7.45) ABG HCO3 26.5 (22-28) ABG O2 Sat (Measured) 92.4 L (95-100) % Robert Test NOT APPLICABLE A-a Gradient 31 a/A Ratio 0.69 Hemoglobin 14.3 Carboxyhemoglobin 2.7 (0.0-6.9) % THgb Methemoglobin 0.0 L (1.4-1.5) % Temperature 37.0 C POC O2 Flow Rate 21 % Sodium (137-145) mmol/L Potassium 3.8 (3.5-5.1) mmol/L Chloride (98-107) mmol/L Carbon Dioxide (22-30) mmol/L Anion Gap (5-15) MEQ/L BUN (7-17) mg/dL Creatinine (0.52-1.04) mg/dL Estimated GFR ML/MIN Glucose (74-106) mg/dL Lactic Acid 3.1 H (0.4-2.0) Calcium (8.4-10.2) mg/dL Magnesium (1.6-2.3) mg/dL Total Bilirubin (0.2-1.3) mg/dL AST (14-36) U/L ALT (0-35) U/L Alkaline Phosphatase (38-126) U/L Troponin I (0.000-0.034) ng/mL NT-Pro-B Natriuret Pep (0-900) pg/mL Serum Total Protein (6.3-8.2) g/dL Albumin (3.5-5.0) g/dL Urine Color YELLOW (YELLOW) Urine Appearance CLEAR (CLEAR) Urine pH 5.0 (5-6) Ur Specific Electra 1.023 (1.005-1.025) Urine Protein 100 (Negative) Urine Ketones NEGATIVE (NEGATIVE) Urine Blood SMALL (0-5) Joseluis/ul Urine Nitrite NEGATIVE (NEGATIVE) Urine Bilirubin NEGATIVE (NEGATIVE) Urine Urobilinogen NEGATIVE (0-1) mg/dL Ur Leukocyte Esterase NEGATIVE (NEGATIVE) Urine WBC (Auto) 0-2 (0-5) /HPF Urine RBC (Auto) 0-2 (0-2) /HPF U Epithel Cells (Auto) RARE (FEW) /HPF Urine Bacteria (Auto) RARE (NEGATIVE) /HPF Urine Mucus (Auto) SLIGHT (NEGATIVE) /HPF Urine Culture Reflexed YES (NO) Urine Glucose >=500 (NEGATIVE) mg/dL Influenza Type A Ag (NEGATIVE) Influenza Type B Ag (NEGATIVE) RSV (PCR) (Negative) Group A Strep Antibody (NEGATIVE) Slides for Path Review 08/07/18 08/07/18 08/07/18 Range/Units 01:45 01:50 05:01 WBC (4.0-10.5) K/mm3 RBC (4.1-5.4) M/mm3 Hgb (12.0-16.0) gm/dl Hct (35-47) % MCV (78-100) fl MCH (26-32) pg MCHC (32-36) g/dl RDW (11.5-14.0) % Plt Count (150-450) K/mm3 MPV (6-9.5) fl Absolute Granulocytes (1.4-6.9) Segmented Neutrophils (36.0-66.0) % Lymphocytes (Manual) (24-44) % Monocytes (Manual) (0.0-12.0) % Eosinophils (Manual) (0.00-3.0) % Platelet Estimate (NORMAL) RBC Morphology PT (9.95-12.35) SECONDS INR (0.8-3.0) APTT (25.3-37.0) SECONDS Puncture Site pCO2 (35-45) mmHg pO2 (75-100) mmHg Base Excess (-2.0-2.0) O2 Saturation (94-100) g/dF ABG pH (7.35-7.45) ABG HCO3 (22-28) ABG O2 Sat (Measured) (95-100) % Robert Test A-a Gradient a/A Ratio Hemoglobin Carboxyhemoglobin (0.0-6.9) % THgb Methemoglobin (1.4-1.5) % Temperature C POC O2 Flow Rate % Sodium (137-145) mmol/L Potassium (3.5-5.1) mmol/L Chloride (98-107) mmol/L Carbon Dioxide (22-30) mmol/L Anion Gap (5-15) MEQ/L BUN (7-17) mg/dL Creatinine (0.52-1.04) mg/dL Estimated GFR ML/MIN Glucose (74-106) mg/dL Lactic Acid 1.6 (0.4-2.0) Calcium (8.4-10.2) mg/dL Magnesium (1.6-2.3) mg/dL Total Bilirubin (0.2-1.3) mg/dL AST (14-36) U/L ALT (0-35) U/L Alkaline Phosphatase (38-126) U/L Troponin I < 0.012 < 0.012 (0.000-0.034) ng/mL NT-Pro-B Natriuret Pep (0-900) pg/mL Serum Total Protein (6.3-8.2) g/dL Albumin (3.5-5.0) g/dL Urine Color (YELLOW) Urine Appearance (CLEAR) Urine pH (5-6) Ur Specific Electra (1.005-1.025) Urine Protein (Negative) Urine Ketones (NEGATIVE) Urine Blood (0-5) Joseluis/ul Urine Nitrite (NEGATIVE) Urine Bilirubin (NEGATIVE) Urine Urobilinogen (0-1) mg/dL Ur Leukocyte Esterase (NEGATIVE) Urine WBC (Auto) (0-5) /HPF Urine RBC (Auto) (0-2) /HPF U Epithel Cells (Auto) (FEW) /HPF Urine Bacteria (Auto) (NEGATIVE) /HPF Urine Mucus (Auto) (NEGATIVE) /HPF Urine Culture Reflexed (NO) Urine Glucose (NEGATIVE) mg/dL Influenza Type A Ag (NEGATIVE) Influenza Type B Ag (NEGATIVE) RSV (PCR) (Negative) Group A Strep Antibody (NEGATIVE) Slides for Path Review 08/07/18 08/07/18 08/07/18 Range/Units 05:01 05:01 07:45 WBC 6.0 (4.0-10.5) K/mm3 RBC 4.20 (4.1-5.4) M/mm3 Hgb 13.1 (12.0-16.0) gm/dl Hct 37.0 (35-47) % MCV 88.1 (78-100) fl MCH 31.2 (26-32) pg MCHC 35.4 (32-36) g/dl RDW 12.3 (11.5-14.0) % Plt Count 93 L (150-450) K/mm3 MPV 12.8 H (6-9.5) fl Absolute Granulocytes (1.4-6.9) Segmented Neutrophils (36.0-66.0) % Lymphocytes (Manual) (24-44) % Monocytes (Manual) (0.0-12.0) % Eosinophils (Manual) (0.00-3.0) % Platelet Estimate (NORMAL) RBC Morphology PT (9.95-12.35) SECONDS INR (0.8-3.0) APTT (25.3-37.0) SECONDS Puncture Site pCO2 (35-45) mmHg pO2 (75-100) mmHg Base Excess (-2.0-2.0) O2 Saturation (94-100) g/dF ABG pH (7.35-7.45) ABG HCO3 (22-28) ABG O2 Sat (Measured) (95-100) % Robert Test A-a Gradient a/A Ratio Hemoglobin Carboxyhemoglobin (0.0-6.9) % THgb Methemoglobin (1.4-1.5) % Temperature C POC O2 Flow Rate % Sodium 133 L D (137-145) mmol/L Potassium 3.6 (3.5-5.1) mmol/L Chloride 93 L (98-107) mmol/L Carbon Dioxide 30 (22-30) mmol/L Anion Gap 13.1 (5-15) MEQ/L BUN 27 H (7-17) mg/dL Creatinine 1.28 H (0.52-1.04) mg/dL Estimated GFR 46.7 ML/MIN Glucose 221 H (74-106) mg/dL Lactic Acid (0.4-2.0) Calcium 9.3 (8.4-10.2) mg/dL Magnesium (1.6-2.3) mg/dL Total Bilirubin (0.2-1.3) mg/dL AST (14-36) U/L ALT (0-35) U/L Alkaline Phosphatase (38-126) U/L Troponin I < 0.012 (0.000-0.034) ng/mL NT-Pro-B Natriuret Pep (0-900) pg/mL Serum Total Protein (6.3-8.2) g/dL Albumin (3.5-5.0) g/dL Urine Color (YELLOW) Urine Appearance (CLEAR) Urine pH (5-6) Ur Specific Electra (1.005-1.025) Urine Protein (Negative) Urine Ketones (NEGATIVE) Urine Blood (0-5) Joseluis/ul Urine Nitrite (NEGATIVE) Urine Bilirubin (NEGATIVE) Urine Urobilinogen (0-1) mg/dL Ur Leukocyte Esterase (NEGATIVE) Urine WBC (Auto) (0-5) /HPF Urine RBC (Auto) (0-2) /HPF U Epithel Cells (Auto) (FEW) /HPF Urine Bacteria (Auto) (NEGATIVE) /HPF Urine Mucus (Auto) (NEGATIVE) /HPF Urine Culture Reflexed (NO) Urine Glucose (NEGATIVE) mg/dL Influenza Type A Ag (NEGATIVE) Influenza Type B Ag (NEGATIVE) RSV (PCR) (Negative) Group A Strep Antibody (NEGATIVE) Slides for Path Review Accuchecks Date 08/07/18 Date 08/07/18 Date 08/07/18 Date 08/07/18 Date 08/07/18 Date 08/07/18 Date 08/07/18 Time 08:21 Time 07:20 Time 06:00 Time 05:00 Time 04:16 Time 03:11 Time 01:42 Accucheck Value: 146 Accucheck Value: 156 Accucheck Value: 173 Accucheck Value: 235 Accucheck Value: 271 Accucheck Value: 342 Accucheck Value: 399 Accucheck Value: 527 - Radiology Impressions Radiology Exams & Impressions: Radiology Procedures Category Date Time Status CHEST 2 VIEWS (PA AND LAT) Stat Exams 08/06/18 23:16 Taken - Other Procedures and Tests Respiratory Therapy 08/06/18 23:02 Peak Expiratory Flow Rate ONCE Respiratory Therapy Assessment DAILY 08/07/18 00:57 BiPap/CPAP ROUTINE Assessment/Plan (1) COPD with exacerbation Current Visit: Yes Status: Acute Assessment & Plan: Give zithromax today. will not send pt home on tussionex due to possible med interaction, but she may have some here. Code(s): J44.1 - CHRONIC OBSTRUCTIVE PULMONARY DISEASE W (ACUTE) EXACERBATION (2) Hyperglycemia Current Visit: Yes Status: Acute Assessment & Plan: Elevated to 707, but her recent a1c was > 11 so she is chronically elevated. Discussed avoiding concentrated sweets briefly but she appears to have no concept that her diet is affecting her blood sugar. Code(s): R73.9 - HYPERGLYCEMIA, UNSPECIFIED (3) Chest pain Current Visit: No Status: Acute Qualifiers: Chest pain type: other chest pain Qualified Code(s): R07.89 - Other chest pain; R07.8 - Other chest pain Assessment & Plan: with cough; troponin neg x 3. Code(s): R07.9 - CHEST PAIN, UNSPECIFIED (4) Renal insufficiency Current Visit: No Status: Chronic (5) Uncontrolled diabetes mellitus Current Visit: No Status: Chronic Qualifiers: Diabetes mellitus type: type 2 Code(s): E11.65 - TYPE 2 DIABETES MELLITUS WITH HYPERGLYCEMIA (6) Thrombocytopenia Current Visit: Yes Status: Acute Assessment & Plan: ;Plt also low when first checked here, 07/08/18. Unsure if this is chronic. (7) Morbid obesity Current Visit: Yes Status: Chronic Code(s): E66.01 - MORBID (SEVERE) OBESITY DUE TO EXCESS CALORIES Hospital Summary - Hospital Course Hospital Course: Pt is [address] pt [address] Akhtar with multiple medical problems including COPD, DM ( uncontrolled), CHF, and renal insufficiency who was admitted through the ER with BS 707 and no acidosis. She was put on insulin drip overnight and BS this morning was 221. Her IV started hurting and she would like to go home. I will start her on po zithromax for the cough and COPD exacerbation. she is tolerating po well. RN overnight reported that family brought in sweet tea and snacks; she was able to get the sweet tea away from pt but pt insisted on having her snacks. Pt denies drinking any sweet tea this morning. Will give some cough medicine here. If her BS is controlled with her usual lantus and sliding scale, she may be able to discharge to home this afternoon. - Vitals & Intake/Output Vital Signs: Vital Signs Temperature 97.8 F 08/07/18 07:30 Pulse Rate 69 08/07/18 07:31 Respiratory Rate 17 08/07/18 07:31 Blood Pressure 143/51 08/07/18 07:30 O2 Sat by Pulse Oximetry 93 L 08/07/18 07:30 Intake & Output: Intake & Output 08/04/18 08/05/18 08/06/18 08/07/18 11:59 11:59 11:59 11:59 Intake Total 739 Output Total 400 Balance 339 Weight 111 kg - Lab Result Diagrams: 08/07/18 05:01 08/07/18 05:01 Lab Results-Last 24 Hrs: Accuchecks Date 08/07/18 Date 08/07/18 Date 08/07/18 Date 08/07/18 Date 08/07/18 Date 08/07/18 Date 08/07/18 Time 08:21 Time 07:20 Time 06:00 Time 05:00 Time 04:16 Time 03:11 Time 01:42 Accucheck Value: 146 Accucheck Value: 156 Accucheck Value: 173 Accucheck Value: 235 Accucheck Value: 271 Accucheck Value: 342 Accucheck Value: 399 Accucheck Value: 527 Lab Results-Last 24 Hours 08/06/18 08/06/18 08/06/18 Range/Units 22:30 22:30 22:30 WBC 5.2 (4.0-10.5) K/mm3 RBC 4.51 (4.1-5.4) M/mm3 Hgb 14.1 (12.0-16.0) gm/dl Hct 40.2 (35-47) % MCV 89.1 (78-100) fl MCH 31.3 (26-32) pg MCHC 35.1 (32-36) g/dl RDW 12.7 (11.5-14.0) % Plt Count 114 L (150-450) K/mm3 MPV 13.7 H (6-9.5) fl Absolute Granulocytes 3.15 (1.4-6.9) Segmented Neutrophils 66 (36.0-66.0) % Lymphocytes (Manual) 25 (24-44) % Monocytes (Manual) 6 (0.0-12.0) % Eosinophils (Manual) 3 (0.00-3.0) % Platelet Estimate NORMAL (NORMAL) RBC Morphology NORMAL PT 11.7 (9.95-12.35) SECONDS INR 1.01 (0.8-3.0) APTT 26.8 (25.3-37.0) SECONDS Puncture Site pCO2 (35-45) mmHg pO2 (75-100) mmHg Base Excess (-2.0-2.0) O2 Saturation (94-100) g/dF ABG pH (7.35-7.45) ABG HCO3 (22-28) ABG O2 Sat (Measured) (95-100) % Robert Test A-a Gradient a/A Ratio Hemoglobin Carboxyhemoglobin (0.0-6.9) % THgb Methemoglobin (1.4-1.5) % Temperature C POC O2 Flow Rate % Sodium 126 L (137-145) mmol/L Potassium 4.2 (3.5-5.1) mmol/L Chloride 85 L (98-107) mmol/L Carbon Dioxide 26 (22-30) mmol/L Anion Gap 19.6 H (5-15) MEQ/L BUN 31 H (7-17) mg/dL Creatinine 1.31 H (0.52-1.04) mg/dL Estimated GFR 45.5 ML/MIN Glucose 707 H* (74-106) mg/dL Lactic Acid (0.4-2.0) Calcium 9.9 (8.4-10.2) mg/dL Magnesium 1.9 (1.6-2.3) mg/dL Total Bilirubin 0.60 (0.2-1.3) mg/dL AST 43 H (14-36) U/L ALT 25 (0-35) U/L Alkaline Phosphatase 139 H (38-126) U/L Troponin I (0.000-0.034) ng/mL NT-Pro-B Natriuret Pep 291 (0-900) pg/mL Serum Total Protein 7.9 (6.3-8.2) g/dL Albumin 4.2 (3.5-5.0) g/dL Urine Color (YELLOW) Urine Appearance (CLEAR) Urine pH (5-6) Ur Specific Electra (1.005-1.025) Urine Protein (Negative) Urine Ketones (NEGATIVE) Urine Blood (0-5) Joseluis/ul Urine Nitrite (NEGATIVE) Urine Bilirubin (NEGATIVE) Urine Urobilinogen (0-1) mg/dL Ur Leukocyte Esterase (NEGATIVE) Urine WBC (Auto) (0-5) /HPF Urine RBC (Auto) (0-2) /HPF U Epithel Cells (Auto) (FEW) /HPF Urine Bacteria (Auto) (NEGATIVE) /HPF Urine Mucus (Auto) (NEGATIVE) /HPF Urine Culture Reflexed (NO) Urine Glucose (NEGATIVE) mg/dL Influenza Type A Ag (NEGATIVE) Influenza Type B Ag (NEGATIVE) RSV (PCR) (Negative) Group A Strep Antibody (NEGATIVE) Slides for Path Review 08/06/18 08/06/18 08/06/18 Range/Units 22:30 22:52 22:52 WBC (4.0-10.5) K/mm3 RBC (4.1-5.4) M/mm3 Hgb (12.0-16.0) gm/dl Hct (35-47) % MCV (78-100) fl MCH (26-32) pg MCHC (32-36) g/dl RDW (11.5-14.0) % Plt Count (150-450) K/mm3 MPV (6-9.5) fl Absolute Granulocytes (1.4-6.9) Segmented Neutrophils (36.0-66.0) % Lymphocytes (Manual) (24-44) % Monocytes (Manual) (0.0-12.0) % Eosinophils (Manual) (0.00-3.0) % Platelet Estimate (NORMAL) RBC Morphology PT (9.95-12.35) SECONDS INR (0.8-3.0) APTT (25.3-37.0) SECONDS Puncture Site pCO2 (35-45) mmHg pO2 (75-100) mmHg Base Excess (-2.0-2.0) O2 Saturation (94-100) g/dF ABG pH (7.35-7.45) ABG HCO3 (22-28) ABG O2 Sat (Measured) (95-100) % Robert Test A-a Gradient a/A Ratio Hemoglobin Carboxyhemoglobin (0.0-6.9) % THgb Methemoglobin (1.4-1.5) % Temperature C POC O2 Flow Rate % Sodium (137-145) mmol/L Potassium (3.5-5.1) mmol/L Chloride (98-107) mmol/L Carbon Dioxide (22-30) mmol/L Anion Gap (5-15) MEQ/L BUN (7-17) mg/dL Creatinine (0.52-1.04) mg/dL Estimated GFR ML/MIN Glucose (74-106) mg/dL Lactic Acid (0.4-2.0) Calcium (8.4-10.2) mg/dL Magnesium (1.6-2.3) mg/dL Total Bilirubin (0.2-1.3) mg/dL AST (14-36) U/L ALT (0-35) U/L Alkaline Phosphatase (38-126) U/L Troponin I < 0.012 (0.000-0.034) ng/mL NT-Pro-B Natriuret Pep (0-900) pg/mL Serum Total Protein (6.3-8.2) g/dL Albumin (3.5-5.0) g/dL Urine Color (YELLOW) Urine Appearance (CLEAR) Urine pH (5-6) Ur Specific Electra (1.005-1.025) Urine Protein (Negative) Urine Ketones (NEGATIVE) Urine Blood (0-5) Joseluis/ul Urine Nitrite (NEGATIVE) Urine Bilirubin (NEGATIVE) Urine Urobilinogen (0-1) mg/dL Ur Leukocyte Esterase (NEGATIVE) Urine WBC (Auto) (0-5) /HPF Urine RBC (Auto) (0-2) /HPF U Epithel Cells (Auto) (FEW) /HPF Urine Bacteria (Auto) (NEGATIVE) /HPF Urine Mucus (Auto) (NEGATIVE) /HPF Urine Culture Reflexed (NO) Urine Glucose (NEGATIVE) mg/dL Influenza Type A Ag NEGATIVE (NEGATIVE) Influenza Type B Ag NEGATIVE (NEGATIVE) RSV (PCR) NEGATIVE (Negative) Group A Strep Antibody NEGATIVE (NEGATIVE) Slides for Path Review 08/06/18 08/06/18 08/06/18 Range/Units 22:55 22:55 23:34 WBC (4.0-10.5) K/mm3 RBC (4.1-5.4) M/mm3 Hgb (12.0-16.0) gm/dl Hct (35-47) % MCV (78-100) fl MCH (26-32) pg MCHC (32-36) g/dl RDW (11.5-14.0) % Plt Count (150-450) K/mm3 MPV (6-9.5) fl Absolute Granulocytes (1.4-6.9) Segmented Neutrophils (36.0-66.0) % Lymphocytes (Manual) (24-44) % Monocytes (Manual) (0.0-12.0) % Eosinophils (Manual) (0.00-3.0) % Platelet Estimate (NORMAL) RBC Morphology PT (9.95-12.35) SECONDS INR (0.8-3.0) APTT (25.3-37.0) SECONDS Puncture Site RIGHT BRACHIAL pCO2 39 (35-45) mmHg pO2 70 L (75-100) mmHg Base Excess 2.3 H (-2.0-2.0) O2 Saturation 89.8 L (94-100) g/dF ABG pH 7.44 (7.35-7.45) ABG HCO3 26.5 (22-28) ABG O2 Sat (Measured) 92.4 L (95-100) % Robert Test NOT APPLICABLE A-a Gradient 31 a/A Ratio 0.69 Hemoglobin 14.3 Carboxyhemoglobin 2.7 (0.0-6.9) % THgb Methemoglobin 0.0 L (1.4-1.5) % Temperature 37.0 C POC O2 Flow Rate 21 % Sodium (137-145) mmol/L Potassium 3.8 (3.5-5.1) mmol/L Chloride (98-107) mmol/L Carbon Dioxide (22-30) mmol/L Anion Gap (5-15) MEQ/L BUN (7-17) mg/dL Creatinine (0.52-1.04) mg/dL Estimated GFR ML/MIN Glucose (74-106) mg/dL Lactic Acid 3.1 H (0.4-2.0) Calcium (8.4-10.2) mg/dL Magnesium (1.6-2.3) mg/dL Total Bilirubin (0.2-1.3) mg/dL AST (14-36) U/L ALT (0-35) U/L Alkaline Phosphatase (38-126) U/L Troponin I (0.000-0.034) ng/mL NT-Pro-B Natriuret Pep (0-900) pg/mL Serum Total Protein (6.3-8.2) g/dL Albumin (3.5-5.0) g/dL Urine Color YELLOW (YELLOW) Urine Appearance CLEAR (CLEAR) Urine pH 5.0 (5-6) Ur Specific Electra 1.023 (1.005-1.025) Urine Protein 100 (Negative) Urine Ketones NEGATIVE (NEGATIVE) Urine Blood SMALL (0-5) Joseluis/ul Urine Nitrite NEGATIVE (NEGATIVE) Urine Bilirubin NEGATIVE (NEGATIVE) Urine Urobilinogen NEGATIVE (0-1) mg/dL Ur Leukocyte Esterase NEGATIVE (NEGATIVE) Urine WBC (Auto) 0-2 (0-5) /HPF Urine RBC (Auto) 0-2 (0-2) /HPF U Epithel Cells (Auto) RARE (FEW) /HPF Urine Bacteria (Auto) RARE (NEGATIVE) /HPF Urine Mucus (Auto) SLIGHT (NEGATIVE) /HPF Urine Culture Reflexed YES (NO) Urine Glucose >=500 (NEGATIVE) mg/dL Influenza Type A Ag (NEGATIVE) Influenza Type B Ag (NEGATIVE) RSV (PCR) (Negative) Group A Strep Antibody (NEGATIVE) Slides for Path Review 08/07/18 08/07/18 08/07/18 Range/Units 01:45 01:50 05:01 WBC (4.0-10.5) K/mm3 RBC (4.1-5.4) M/mm3 Hgb (12.0-16.0) gm/dl Hct (35-47) % MCV (78-100) fl MCH (26-32) pg MCHC (32-36) g/dl RDW (11.5-14.0) % Plt Count (150-450) K/mm3 MPV (6-9.5) fl Absolute Granulocytes (1.4-6.9) Segmented Neutrophils (36.0-66.0) % Lymphocytes (Manual) (24-44) % Monocytes (Manual) (0.0-12.0) % Eosinophils (Manual) (0.00-3.0) % Platelet Estimate (NORMAL) RBC Morphology PT (9.95-12.35) SECONDS INR (0.8-3.0) APTT (25.3-37.0) SECONDS Puncture Site pCO2 (35-45) mmHg pO2 (75-100) mmHg Base Excess (-2.0-2.0) O2 Saturation (94-100) g/dF ABG pH (7.35-7.45) ABG HCO3 (22-28) ABG O2 Sat (Measured) (95-100) % Robert Test A-a Gradient a/A Ratio Hemoglobin Carboxyhemoglobin (0.0-6.9) % THgb Methemoglobin (1.4-1.5) % Temperature C POC O2 Flow Rate % Sodium (137-145) mmol/L Potassium (3.5-5.1) mmol/L Chloride (98-107) mmol/L Carbon Dioxide (22-30) mmol/L Anion Gap (5-15) MEQ/L BUN (7-17) mg/dL Creatinine (0.52-1.04) mg/dL Estimated GFR ML/MIN Glucose (74-106) mg/dL Lactic Acid 1.6 (0.4-2.0) Calcium (8.4-10.2) mg/dL Magnesium (1.6-2.3) mg/dL Total Bilirubin (0.2-1.3) mg/dL AST (14-36) U/L ALT (0-35) U/L Alkaline Phosphatase (38-126) U/L Troponin I < 0.012 < 0.012 (0.000-0.034) ng/mL NT-Pro-B Natriuret Pep (0-900) pg/mL Serum Total Protein (6.3-8.2) g/dL Albumin (3.5-5.0) g/dL Urine Color (YELLOW) Urine Appearance (CLEAR) Urine pH (5-6) Ur Specific Electra (1.005-1.025) Urine Protein (Negative) Urine Ketones (NEGATIVE) Urine Blood (0-5) Joseluis/ul Urine Nitrite (NEGATIVE) Urine Bilirubin (NEGATIVE) Urine Urobilinogen (0-1) mg/dL Ur Leukocyte Esterase (NEGATIVE) Urine WBC (Auto) (0-5) /HPF Urine RBC (Auto) (0-2) /HPF U Epithel Cells (Auto) (FEW) /HPF Urine Bacteria (Auto) (NEGATIVE) /HPF Urine Mucus (Auto) (NEGATIVE) /HPF Urine Culture Reflexed (NO) Urine Glucose (NEGATIVE) mg/dL Influenza Type A Ag (NEGATIVE) Influenza Type B Ag (NEGATIVE) RSV (PCR) (Negative) Group A Strep Antibody (NEGATIVE) Slides for Path Review 08/07/18 08/07/18 08/07/18 Range/Units 05:01 05:01 07:45 WBC 6.0 (4.0-10.5) K/mm3 RBC 4.20 (4.1-5.4) M/mm3 Hgb 13.1 (12.0-16.0) gm/dl Hct 37.0 (35-47) % MCV 88.1 (78-100) fl MCH 31.2 (26-32) pg MCHC 35.4 (32-36) g/dl RDW 12.3 (11.5-14.0) % Plt Count 93 L (150-450) K/mm3 MPV 12.8 H (6-9.5) fl Absolute Granulocytes (1.4-6.9) Segmented Neutrophils (36.0-66.0) % Lymphocytes (Manual) (24-44) % Monocytes (Manual) (0.0-12.0) % Eosinophils (Manual) (0.00-3.0) % Platelet Estimate (NORMAL) RBC Morphology PT (9.95-12.35) SECONDS INR (0.8-3.0) APTT (25.3-37.0) SECONDS Puncture Site pCO2 (35-45) mmHg pO2 (75-100) mmHg Base Excess (-2.0-2.0) O2 Saturation (94-100) g/dF ABG pH (7.35-7.45) ABG HCO3 (22-28) ABG O2 Sat (Measured) (95-100) % Robert Test A-a Gradient a/A Ratio Hemoglobin Carboxyhemoglobin (0.0-6.9) % THgb Methemoglobin (1.4-1.5) % Temperature C POC O2 Flow Rate % Sodium 133 L D (137-145) mmol/L Potassium 3.6 (3.5-5.1) mmol/L Chloride 93 L (98-107) mmol/L Carbon Dioxide 30 (22-30) mmol/L Anion Gap 13.1 (5-15) MEQ/L BUN 27 H (7-17) mg/dL Creatinine 1.28 H (0.52-1.04) mg/dL Estimated GFR 46.7 ML/MIN Glucose 221 H (74-106) mg/dL Lactic Acid (0.4-2.0) Calcium 9.3 (8.4-10.2) mg/dL Magnesium (1.6-2.3) mg/dL Total Bilirubin (0.2-1.3) mg/dL AST (14-36) U/L ALT (0-35) U/L Alkaline Phosphatase (38-126) U/L Troponin I < 0.012 (0.000-0.034) ng/mL NT-Pro-B Natriuret Pep (0-900) pg/mL Serum Total Protein (6.3-8.2) g/dL Albumin (3.5-5.0) g/dL Urine Color (YELLOW) Urine Appearance (CLEAR) Urine pH (5-6) Ur Specific Electra (1.005-1.025) Urine Protein (Negative) Urine Ketones (NEGATIVE) Urine Blood (0-5) Joseluis/ul Urine Nitrite (NEGATIVE) Urine Bilirubin (NEGATIVE) Urine Urobilinogen (0-1) mg/dL Ur Leukocyte Esterase (NEGATIVE) Urine WBC (Auto) (0-5) /HPF Urine RBC (Auto) (0-2) /HPF U Epithel Cells (Auto) (FEW) /HPF Urine Bacteria (Auto) (NEGATIVE) /HPF Urine Mucus (Auto) (NEGATIVE) /HPF Urine Culture Reflexed (NO) Urine Glucose (NEGATIVE) mg/dL Influenza Type A Ag (NEGATIVE) Influenza Type B Ag (NEGATIVE) RSV (PCR) (Negative) Group A Strep Antibody (NEGATIVE) Slides for Path Review Micro Results-Entire Visit: Accuchecks Date 08/07/18 Date 08/07/18 Date 08/07/18 Date 08/07/18 Date 08/07/18 Date 08/07/18 Date 08/07/18 Time 08:21 Time 07:20 Time 06:00 Time 05:00 Time 04:16 Time 03:11 Time 01:42 Accucheck Value: 146 Accucheck Value: 156 Accucheck Value: 173 Accucheck Value: 235 Accucheck Value: 271 Accucheck Value: 342 Accucheck Value: 399 Accucheck Value: 527 - Radiology Exams Ordered Rad Exams-Entire Visit: Radiology Procedures Category Date Time Status CHEST 2 VIEWS (PA AND LAT) Stat Exams 08/06/18 23:16 Taken - Procedures and Test Procedures and Tests throughout Hospitalization: Therapy Orders & Screens 08/06/18 23:02 Peak Expiratory Flow Rate ONCE Comment: Reason For Exam: Respiratory Therapy Assessment DAILY Comment: 08/06/18 23:43 Respiratory Therapy Consult ROUTINE Comment: Reason For Exam: 08/07/18 00:57 BiPap/CPAP ROUTINE Comment: as per home 08/07/18 10:00 RT Screen per Nursing Assess ONCE Comment: Protocol Order Physician Instructions: Greater than 3 points order RT Admission Screen Reason For Exam: Triggered on Admission Diagnosis: Hyperglycemia Diagnosis: Hyperglycemia Pneumonia: Yes Home O2: No Asthma: Yes CHF: Yes Home CPAP/BIPAP: Yes Home Nebs/MDI: Yes Total Points: 20 Smoking Cessation Education ONCE Comment: Diagnosis: Hyperglycemia Smoking Status: Current every day smoker How long have you smoked: 40 yrs Have you smoked in the past 12 months: Yes Approximately how many cigarettes per day: pack a day Do you dip or chew tobacco: No - Discharge Disposition: Home, Self-Care Condition: Stable Prescriptions: New Guaifenesin 600 mg ER [Mucinex 600MG ER Tabs] 600 mg PO BID PRN #30 tablet PRN Reason: Cough Azithromycin [Zithromax] 250 mg PO DAILY #4 tablet Continue Polyethylene Glycol 3350 17 gm [Miralax Powder 17GM PACKET] 17 gm PO UD PRN PRN Reason: Constipation Nitroglycerin 0.4 mg Tablet [Nitrostat 0.4 MG Tablet] 0.4 mg SL Q5MIN PRN MR X 3 PRN PRN Reason: Chest Pain Cholecalciferol (Vitamin D3) [Vitamin D3] 2,000 unit PO UD Bumetanide [Bumex] 4 mg PO BID Montelukast Sodium 10 mg PO DAILY Budesonide/Formoterol Fumarate [Symbicort 160-4.5 Mcg Inhaler] 2 puff IH BID Fenofibrate 160 mg PO DAILY Potassium Chloride 20 Meq [Klor-Con 20 MEQ] 20 meq PO DAILY PANTOPRAZOLE 40 mg Tablet [Protonix 40MG Tablet] 40 mg PO DAILY Divalproex Sodium [Divalproex Sodium ER] 500 mg PO TID Rosuvastatin Calcium [Crestor] 40 mg PO DAILY Albuterol Sulfate [Proair Hfa] 2 puffs IH QID Albuterol 2.5 mg/3 ml Neb [Proventil 2.5 mg/3 ml Neb] 1 ea IH QID PRN PRN PRN Reason: Shortness Of Breath/Wheezing Verapamil HCl [Verapamil ER] 240 mg PO DAILY #30 tablet.er Lisinopril 10 mg [Zestril 10 MG] 10 mg PO DAILY Magnesium Oxide [Magnesium] 400 mg PO DAILY Levothyroxine Sodium 112 Mcg [Synthroid 112 Mcg] 212 mcg PO DAILY Lubiprostone [Amitiza] 24 mcg PO DAILY Insulin Glargine,Hum.rec.anlog [Basaglar Kwikpen U-100] 20 unit SQ BID Discontinued Ondansetron ODT 4 MG [Zofran Odt 4 mg] 1 tab PO Q4-6HPRN PRN PRN Reason: Nausea Instructions: Hyperglycemia, Adult (DC) Follow up with: VAIBHAV AKHTAR MD [Primary Care Provider] - 1 Week
--- NOTE | 2018-08-07 08:51 | XRAY ---
Indication: Short of breath and cough. Comparison: July 08, 2018. PA/lateral chest remains clear. Heart and mediastinal structures within normal limits. Bony thorax intact with minimal degenerative changes. Impression: Stable nonacute chest.
[2018-08-07] MEDS ORDERED: Tussionex Pennkinetic Susp PO ONE (08:56)
[2018-08-07] MEDS: Mucinex 600MG ER Tabs PO SCH ×2 (09:15→21:15)
[2018-08-07] MEDS: Pepcid 20 MG VIAL IV SCH ×2 (09:15→21:16)
[2018-08-07] MEDS ORDERED: Zithromax 250 MG TABLET PO SCH (10:00)
[2018-08-07] MEDS ORDERED: Miralax Powder 17GM PACKET PO PRN (11:11)
[2018-08-07] MEDS ORDERED: Nitrostat 0.4 MG Tablet SL PRN (11:11)
[2018-08-07] MEDS: NovoLOG Insulin SQ PRN ×2 (11:12→12:33)
[2018-08-07] MEDS: BUMEX 1 MG PO SCH ×2 (11:38→16:27)
[2018-08-07] MEDS ORDERED: Singulair 10 MG PO SCH (12:00)
[2018-08-07] MEDS ORDERED: AMITIZA PO SCH (12:00)
[2018-08-07] MEDS ORDERED: Zocor 10MG PO SCH (12:00)
[2018-08-07] MEDS ORDERED: SYNTHROID 112 MCG PO SCH (12:00)
[2018-08-07] MEDS ORDERED: Protonix 40MG Tablet PO SCH (12:00)
[2018-08-07] MEDS ORDERED: Klor Con 10 MEQ PO SCH (12:00)
[2018-08-07] MEDS ORDERED: ISOPTIN S.R. 240 MG PO SCH (12:00)
[2018-08-07] MEDS ORDERED: MAG-OX 400 PO SCH (12:00)
[2018-08-07] MEDS ORDERED: Zestril 10 MG PO SCH (12:00)
[2018-08-07] MEDS ORDERED: Tricor 145 MG PO SCH (12:00)
[2018-08-07] MEDS: Advair Hfa 115/21 Common canister IH SCH ×2 (12:24→19:21)
[2018-08-07] MEDS: Phenergan 25 MG INJ IV ONE ×2 (13:09→13:13)
[2018-08-07] MEDS ORDERED: Zofran 4 MG/2 ML VIAL IV ONE (13:28)
[2018-08-07] MEDS: NOVOLIN R INSULIN (FOR DRIPS)** 100 UNITS in Sodium Chloride 0.9% 100 ML IVPB 100 ML IV PRN ×2 (14:25→20:35)
[2018-08-07] MEDS: Depakote EXTENDED RELEASE 250 MG PO SCH ×2 (14:58→21:16)
[2018-08-07] MEDS ORDERED: DIVALPROEX SODIUM 500 MG PO SCH (15:00)
[2018-08-07 15:28] LABS: ANION GAP 13.6 MEQ/L (5-15); Calcium 8.8 mg/dL (8.4-10.2); Creatinine 1 1.22 mg/dL (0.52-1.04); Potassium 4.1 mmol/L (3.5-5.1)
[2018-08-07] MEDS: TYLENOL 325 MG PO PRN ×2 (16:07→21:43)
[2018-08-07] MEDS ORDERED: Tussionex Pennkinetic Susp PO PRN (21:28)
[2018-08-07] MEDS ORDERED: Lantus Insulin SQ SCH (22:00)
[2018-08-07] MEDS ORDERED: Flonase NASAL NS SCH (22:00)
[2018-08-07] MEDS ORDERED: NON-FORMULARY ITEM (Insulin Glargine,Hum.Rec.Anlog [Basaglar Kwikpen U-100] 20 UNIT) SQ SCH (22:00)
[2018-08-07] MEDS ORDERED: BUMETANIDE 4 MG PO SCH (22:00)
[2018-08-08] MEDS: TYLENOL 325 MG PO PRN (04:07)
[2018-08-08] MEDS: Sodium Chloride 0.9% 1000 ML 1,000 ML IV SCH (05:29)
[2018-08-08] MEDS: Depakote EXTENDED RELEASE 250 MG PO SCH (06:19)
[2018-08-08 06:37] LABS: ANION GAP 9.9 MEQ/L (5-15); BLOOD UREA NITROGEN 21 mg/dL (7-17); CHLORIDE 103 mmol/L (98-107); Calcium 8.2 mg/dL (8.4-10.2); Carbon Dioxide 28 mmol/L (22-30); Creatinine 1 0.97 mg/dL (0.52-1.04); Glucose 112 mg/dL (74-106); Potassium 3.9 mmol/L (3.5-5.1); SODIUM 136 mmol/L (137-145)
[2018-08-08] MEDS ORDERED: Tussionex Pennkinetic Susp PO PRN (07:34)
[2018-08-08] MEDS: Advair Hfa 115/21 Common canister IH SCH (08:10)
[2018-08-08 08:16] VITALS: PULSE 86; O2SAT 100
[2018-08-08 08:18] VITALS: BP 148/71
[2018-08-08] MEDS ORDERED: Lantus Insulin SQ ONE (08:21)
[2018-08-08] MEDS ORDERED: NON-FORMULARY ITEM (Rosuvastatin Calcium [Crestor] 40 MG) PO SCH (10:00)
[2018-08-08] MEDS ORDERED: NON-FORMULARY ITEM (Potassium Chloride 20 Meq [Klor-Con 20 Meq] 20 MEQ) PO SCH (10:00)
[2018-08-08] MEDS ORDERED: NON-FORMULARY ITEM (Fenofibrate [Fenofibrate] 160 MG) PO SCH (10:00)
[2018-08-08] MEDS ORDERED: NON-FORMULARY ITEM (Magnesium Oxide [Magnesium] 400 MG) PO SCH (10:00)
[2018-08-08] MEDS ORDERED: Zithromax 500 MG/ 250 ML NaCl Premix 500 MG/250 ML IVPB IV SCH (10:00)
[2018-08-08] MEDS ORDERED: Flonase NASAL NS SCH (22:00)
--- NOTE | 2018-08-11 14:30 | SSS ---
DISCHARGE DIAGNOSES: 1) CHRONIC OBSTRUCTIVE PULMONARY DISEASE EXACERBATION. 2) DIABETES MELLITUS TYPE 2, OUT OF CONTROL. HOSPITAL COURSE: The patient is a 53 year-old white female who presented to the hospital with complaints of cough. She was found to be slightly hypoxic and admitted to the hospital for chronic obstructive pulmonary disease exacerbation. She was given IV antibiotics and IV steroid medications which caused her sugars to become out of control. She required IV insulin at one point. She did improve fairly quickly with sugars running in the low 100's by 08/08/2018. The patient was up ambulating in the halls without difficulty. Her O2 saturations have remained in the mid-90's on room air. She was felt to be ready for discharge home. On 08/08/2018, she requested Tussionex for cough. She was give 2 oz. prescription to take 5 cc every 12 hours PRN. She has prescription for Zithromax to take home already. She is to follow up with Dr. Akhtar in the office this next week coming up. She will continue to use her 17 units of regular insulin three times a day and 20 units of Basaglar twice a day. She is to return to the hospital if she has any further problems in the interim.
== END 2018-08-08 09:00 | disposition home or self-care (01) ==
LOC: ED 22:22 → ICU 23:59
PROVIDERS: ADMIT Family Medicine; ATTEND Family Medicine
DX: J44.1 Chronic obstructive pulmonary disease with (acute) exacerbation (principal); E11.65 Type 2 diabetes mellitus with hyperglycemia; R07.9 Chest pain, unspecified; R42 Dizziness and giddiness; I27.20 Pulmonary hypertension, unspecified; E03.9 Hypothyroidism, unspecified; N28.9 Disorder of kidney and ureter, unspecified; E78.00 Pure hypercholesterolemia, unspecified; D69.6 Thrombocytopenia, unspecified; E66.01 Morbid (severe) obesity due to excess calories; Z79.899 Other long term (current) drug therapy; G47.30 Sleep apnea, unspecified; F17.200 Nicotine dependence, unspecified, uncomplicated
CPT/HCPCS: 36415; 36600; 71046; 80048; 80053; 81001; 82375; 82803; 82962; 83605; 83735; 83880; 84484; 85025; 85027; 85610; 85730; 87086; 87631; 87651; 93005; 94150; 94640; 94660; 94762; 96360; 96365; 96372; 99285; G0378; 96374; J1815; J2300; J2405; J2550; Q0162; A9270-GY

== ENCOUNTER 2018-10-04 12:28 | Emergency (ER) | payer MEDICARE ==
[2018-10-04 12:42] VITALS: PULSE 70
[2018-10-04] MEDS ORDERED: STADOL 2 MG IM ONE (12:50)
[2018-10-04] MEDS ORDERED: ZOFRAN ODT 4 MG PO ONE (12:53)
[2018-10-04] MEDS ORDERED: ZOFRAN ODT 4 MG ONE (12:55)
[2018-10-04] MEDS ORDERED: STADOL 2 MG ONE (12:55)
--- NOTE | 2018-10-04 12:56 | ERPHSYRPT ---
- History of Present Illness Time Seen by Provider: 10/04/18 12:43 Source: patient Exam Limitations: no limitations Patient Subjective Stated Complaint: migraine off and on for the past 3 weeks Triage Nursing Assessment: Pt wheeled into the ER, reports that she has had a migraine off and on for the past 3 weeks, no difficulties with strength, no difficulties with speech, rates pain 8/10, last took Tylenol 3 hours ago, hypertensive, skin w/d Physician History: Pt has been treated with migraine headaches multiple times. She denies taking medications to prevent it except Valproic Acid. She developed diffuse, usual headaches again 3 weeks ago, takes OTC Tylenol without relief, she is also dry heaving, and c/o dizziness. She denies recent fall, injury, no neck pain, any trauma, no focal weakness, numbness, confusion, visual changes, or slurred speech, she is ambulating without difficulty. Her blood sugar was 200 this morning at home. Timing/Duration: week(s) (3) Quality: throbbing Severity of Pain-Max: severe Severity of Pain-Current: severe Recent Head Trauma: frequent headaches, chronic headaches Modifying Factors: Improves With: exposure to light Associated Symptoms: nausea/vomiting Previous symptoms: same symptoms as today Allergies/Adverse Reactions: adhesive Allergy (Intermediate, Verified 10/04/18 12:42) Rash ciprofloxacin HCl [From Cipro] Allergy (Intermediate, Verified 10/04/18 12:42) Rash gatifloxacin [From Tequin] Allergy (Intermediate, Verified 10/04/18 12:42) Rash levofloxacin [From Levaquin] Allergy (Intermediate, Verified 10/04/18 12:42) Rash aspirin Allergy (Verified 10/04/18 12:42) bupropion HCl [From Wellbutrin] Allergy (Verified 10/04/18 12:42) carisoprodol [From Soma] Allergy (Verified 10/04/18 12:42) cefaclor [From Ceclor] Allergy (Verified 10/04/18 12:42) ceftibuten dihydrate [From Cedax] Allergy (Verified 10/04/18 12:42) cephalexin monohydrate [From Keflex] Allergy (Verified 10/04/18 12:42) clarithromycin [From Biaxin] Allergy (Verified 10/04/18 12:42) clotrimazole [From Lotrimin] Allergy (Verified 10/04/18 12:42) codeine [Codeine] Allergy (Verified 10/04/18 12:42) erythromycin base [Erythromycin Base] Allergy (Verified 10/04/18 12:42) ketorolac tromethamine [From Toradol] Allergy (Verified 10/04/18 12:42) loracarbef [From Lorabid] Allergy (Verified 10/04/18 12:42) meperidine HCl [From Demerol] Allergy (Verified 10/04/18 12:42) morphine Allergy (Verified 10/04/18 12:42) Norgestimate-Ethi *RETIRED-07/08/12 [From Ortho Tri-Cyclen (21)] Allergy ( Verified 10/04/18 12:42) Penicillins Allergy (Verified 10/04/18 12:42) prochlorperazine edisylate [From Compazine] Allergy (Verified 10/04/18 12:42) promethazine [From Phenergan] Allergy (Verified 10/04/18 12:42) Hives promethazine HCl [From Phenergan] Allergy (Verified 10/04/18 12:42) Sulfa (Sulfonamide Antibiotics) [Sulfa(Sulfonamide Antibiotics)] Allergy ( Verified 10/04/18 12:42) sumatriptan [From Imitrex] Allergy (Verified 10/04/18 12:42) melon Adverse Reaction (Verified 10/04/18 12:42) Home Medications: Budesonide/Formoterol Fumarate [Symbicort 160-4.5 Mcg Inhaler] 2 puff IH BID [History] Bumetanide [Bumex] 4 mg PO BID 10/10/15 [History] Cholecalciferol (Vitamin D3) [Vitamin D3] 2,000 unit PO UD 10/10/15 [History] Fenofibrate 160 mg PO DAILY 10/10/15 [History] Montelukast Sodium 10 mg PO DAILY 10/10/15 [History] Nitroglycerin 0.4 mg Tablet [Nitrostat 0.4 MG Tablet] 0.4 mg SL Q5MIN PRN MR X 3 PRN 10/10/15 [History] PANTOPRAZOLE 40 mg Tablet [Protonix 40MG Tablet] 40 mg PO DAILY 10/10/15 [ History] Polyethylene Glycol 3350 17 gm [Miralax Powder 17GM PACKET] 17 gm PO UD PRN 10/10/15 [History] Potassium Chloride 20 Meq [Klor-Con 20 MEQ] 20 meq PO DAILY 10/10/15 [History] Divalproex Sodium [Divalproex Sodium ER] 500 mg PO TID 03/06/16 [History] Albuterol 2.5 mg/3 ml Neb [Proventil 2.5 mg/3 ml Neb] 1 ea IH QID PRN PRN 07/08/18 [History] Albuterol Sulfate [Proair Hfa] 2 puffs IH QID 07/08/18 [History] Rosuvastatin Calcium [Crestor] 40 mg PO DAILY 07/08/18 [History] Insulin Glargine,Hum.rec.anlog [Basaglar Kwikpen U-100] 50 unit SQ BID 07/28/18 [History] Levothyroxine Sodium 112 Mcg [Synthroid 112 Mcg] 112 mcg PO DAILY 07/28/18 [History] Lisinopril 10 mg [Zestril 10 MG] 10 mg PO DAILY 07/28/18 [History] Lubiprostone [Amitiza] 24 mcg PO DAILY 07/28/18 [History] Magnesium Oxide [Magnesium] 400 mg PO DAILY 07/28/18 [History] Eszopiclone [Lunesta] 2 mg PO HS 10/04/18 [History] Insulin Regular, Human [Humulin R U-500 Kwikpen] 20 units SQ TID 10/04/18 [ History] Hx Tetanus, Diphtheria Vaccination/Date Given: Yes (4 years ago?) Hx Influenza Vaccination/Date Given: No Hx Pneumococcal Vaccination/Date Given: No - Review of Systems Constitutional: No Symptoms Eyes: No Symptoms Ears, Nose, & Throat: No Symptoms Respiratory: No Symptoms Cardiac: No Symptoms Abdominal/Gastrointestinal: Nausea Genitourinary Symptoms: No Symptoms Musculoskeletal: No Symptoms Skin: No Symptoms Neurological: Dizziness, Headache Psychological: No Symptoms All Other Systems: Reviewed and Negative - Past Medical History Pertinent Past Medical History: Yes Neurological History: Migraines ENT History: Cataracts Cardiac History: Congestive Heart Failure, High Cholesterol, Hypertension, Other Respiratory History: Asthma, COPD, Sleep Apnea Endocrine Medical History: Diabetes Type II, Hypothyroidism, Other Musculoskeletal History: Arthritis, Fibromyalgia GI Medical History: Esophageal Disorder History: Renal Disease Psycho-Social History: Anxiety, Bipolar, Depression Female Reproductive Disorders: No Pertinent History Other Medical History: 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, Mitral prolapse valve, pulmonary hypertension - Past Surgical History Past Surgical History: Yes Neuro Surgical History: Other Cardiac: Cardiac Catheterization Respiratory: No Pertinent History Gastrointestinal: Cholecystectomy Genitourinary: No Pertinent History Musculoskeletal: Orthopedic Surgery Female Surgical History: Hysterectomy Other Surgical History: carpal tunnel, trigger finger, tendon on right arm, ulnar nerve surgery, clipped left eye muscle, lt knee - Social History Smoking Status: Current every day smoker How long have you smoked: 40 yrs Exposure to second hand smoke: Yes Drug Use: none Patient Lives Alone: No - Female History Hx Now: No (hysterectomy) - Nursing Vital Signs Nursing Vital Signs: Initial Vital Signs Temperature 97.9 F 10/04/18 12:32 Pulse Rate 70 10/04/18 12:32 Blood Pressure 154/72 10/04/18 12:32 O2 Sat by Pulse Oximetry 98 10/04/18 12:32 Pain Scale Pain Intensity 8 - Physical Exam General Appearance: no apparent distress Eye Exam: PERRL/EOMI, eyes nml inspection Ears, Nose, Throat Exam: normal ENT inspection, pharynx normal Neck Exam: normal inspection, non-tender, supple, No carotid bruit, No JVD Respiratory Exam: normal breath sounds, lungs clear Cardiovascular Exam: regular rate/rhythm, normal heart sounds, normal peripheral pulses, No murmur Gastrointestinal/Abdominal Exam: soft, normal bowel sounds Back Exam: normal inspection, No CVA tenderness, No vertebral tenderness Extremity Exam: normal inspection 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, 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, 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 Exam: normal speech, PERRL Coordination/Gait Exam: normal gait Motor/Sensory Exam: no motor deficit DTR Exam: bicep (R): 2+, bicep (L): 2+, knee (R): 2+, knee (L): 2+, ankle (R): 2 +, ankle (L): 2+ Skin Exam: normal color, warm, dry, No rash, No diaphoresis Lymphatic Exam: No adenopathy SpO2 Interpretation: normal SpO2: 98 O2 Delivery: Room Air - Course Nursing assessment & vital signs reviewed: Yes Ordered Tests: Active Orders 24 hr Category Date Time Status UA W/RFX UR CULTURE Stat Lab 10/04/18 13:13 Completed Urine Triage Profile Stat Lab 10/04/18 13:13 Completed Medication Summary Discontinued Medications Generic Name Dose Route Start Last Admin Trade Name Fermínq PRN Reason Stop Dose Admin Butorphanol Tartrate 2 mg 10/04/18 12:50 10/04/18 12:56 Stadol 2 Mg IM 10/04/18 12:51 2 mg NOW ONE Administration Butorphanol Tartrate Confirm 10/04/18 12:55 Stadol 2 Mg Administered 10/04/18 12:56 Dose 2 mg .ROUTE .STK-MED ONE Ondansetron HCl 4 mg 10/04/18 12:53 10/04/18 12:57 Zofran Odt 4 Mg PO 10/04/18 12:54 4 mg STAT ONE Administration Ondansetron HCl Confirm 10/04/18 12:55 Zofran Odt 4 Mg Administered 10/04/18 12:56 Dose 4 mg .ROUTE .STK-MED ONE Lab/Rad Data: Laboratory Results 10/04/18 10/04/18 Range/Units 13:13 13:13 Urine Color STRAW (YELLOW) Urine Appearance CLEAR (CLEAR) Urine pH 5.0 (5-6) Ur Specific [place] 1.010 (1.005-1.025) Urine Protein 100 (Negative) Urine Ketones NEGATIVE (NEGATIVE) Urine Blood NEGATIVE (0-5) Joseluis/ul Urine Nitrite NEGATIVE (NEGATIVE) Urine Bilirubin NEGATIVE (NEGATIVE) Urine Urobilinogen NEGATIVE (0-1) mg/dL Ur Leukocyte Esterase NEGATIVE (NEGATIVE) Urine WBC (Auto) NONE (0-5) /HPF Urine RBC (Auto) NONE (0-2) /HPF U Epithel Cells (Auto) NONE (FEW) /HPF Urine Bacteria (Auto) NONE (NEGATIVE) /HPF Urine Mucus (Auto) SLIGHT (NEGATIVE) /HPF Urine Culture Reflexed NO (NO) Urine Glucose NEGATIVE (NEGATIVE) mg/dL Urine Opiates Level NEGATIVE (NEGATIVE) Ur Methadone NEGATIVE (NEGATIVE) Urine Barbiturates NEGATIVE (NEGATIVE) Ur Phencyclidine (PCP) NEGATIVE (NEGATIVE) Urine Amphetamine NEGATIVE (NEGATIVE) U Benzodiazepine Level NEGATIVE (NEGATIVE) Urine Cocaine NEGATIVE (NEGATIVE) Urine Marijuana (THC) NEGATIVE (NEGATIVE) - Progress Progress: improved Air Movement: good Progress Note: 10/04/18 14:14 Pt states, she feels much better after 2 mg IM Stadol and PO Zofran ODT, she is afebrile, stable, did not vomit, reviewed her urine test results, will discharge on [place] 5/325 mg PO Q6h PRN for pain #10, to rest x 2-3 days, and follow up with her physician. Blood Culture(s) Obtained: No Antibiotics given: No Counseled pt/family regarding: lab results, diagnosis, need for follow-up - Departure Departure Disposition: Home Clinical Impression: Headache Qualifiers: Headache type: unspecified Headache chronicity pattern: chronic headache Intractability: not intractable Qualified Code(s): R51 - Headache Condition: Stable Critical Care Time: No Referrals: VAIBHAV CHURCHILL MD [Primary Care Provider] - Instructions: Headache, Adult (DC) Additional Instructions: Rest x 2-3 days, drink plenty of fluids, and follow up with your physician in 2- 3 days, return if severe headaches, vomiting, fever> 102 F, lethargy ! Prescriptions: Hydrocodone/APAP 5-325 Tab^^^ [[place] 5-325 Tablet^^^] 1 tab PO Q6HPRN PRN #10 tablet MDD 6 PRN Reason: Pain
[2018-10-04 13:46] LABS: Appearance CLEAR (CLEAR); Bilirubin NEGATIVE (NEGATIVE); Blood NEGATIVE Ery/ul (0-5); Glucose NEGATIVE (NEGATIVE); Ketones NEGATIVE (NEGATIVE); Leukocyte Esterase NEGATIVE (NEGATIVE); Mucus SLIGHT /HPF (NEGATIVE); Nitrite NEGATIVE (NEGATIVE); Protein,Urine Dip 100 (Negative); Urobilinogen NEGATIVE mg/dL (0-1)
[2018-10-04 14:00] LABS: Amphetamine,Urine NEGATIVE (NEGATIVE); Barbiturate,Urine NEGATIVE (NEGATIVE); Benzodiazepine,Urine NEGATIVE (NEGATIVE); Cocaine,Urine NEGATIVE (NEGATIVE); Methadone,Urine NEGATIVE (NEGATIVE); Opiate,Urine NEGATIVE (NEGATIVE); PCP,Urine NEGATIVE (NEGATIVE); THC,Urine NEGATIVE (NEGATIVE)
[2018-10-04 14:16] VITALS: BP 170/62
[2018-10-04 14:20] VITALS: O2SAT 98
[2018-10-04] MEDS ORDERED: NORCO 5/325 MG PO ONE (14:21)
[2018-10-04] MEDS ORDERED: NORCO 5/325 MG ONE (14:24)
== END 2018-10-04 14:29 | disposition home or self-care (01) ==
LOC: ED 12:28
DX: R51 Headache (principal); E03.9 Hypothyroidism, unspecified; E11.9 Type 2 diabetes mellitus without complications; N28.9 Disorder of kidney and ureter, unspecified; Z79.899 Other long term (current) drug therapy
CPT/HCPCS: 80307; 81001; 96372; 99284; J0595; Q0162; A9270-GY

== ENCOUNTER 2018-11-23 18:25 | Emergency (ER) | payer MEDICARE ==
--- NOTE | 2018-11-23 18:35 | ERPHSYRPT ---
- History of Present Illness Time Seen by Provider: 11/23/18 18:35 Source: patient, family Exam Limitations: no limitations Physician History: 53 y/o white female h/o chronic recurrent migraines. this migraine began 3 days ago. was given an injection of a new anti migraine meds but not helping. pt states she can receive nubaine and dilaudid for pain. she also prefers im zofran. pt has an appt with her pcp Dr. Hermilo burnett. light and noise sensitivity. nausea but no vomiting Timing/Duration: day(s) (3) Quality: aching, throbbing Head Pain Location: global Severity of Pain-Max: moderate Severity of Pain-Current: moderate Recent Head Trauma: frequent headaches Modifying Factors: Improves With: exposure to light, noise Associated Symptoms: nausea/vomiting, sensitive to light Previous symptoms: same symptoms as today, recently seen Allergies/Adverse Reactions: adhesive Allergy (Intermediate, Verified 10/04/18 12:42) Rash ciprofloxacin HCl [From Cipro] Allergy (Intermediate, Verified 10/04/18 12:42) Rash gatifloxacin [From Tequin] Allergy (Intermediate, Verified 10/04/18 12:42) Rash levofloxacin [From Levaquin] Allergy (Intermediate, Verified 10/04/18 12:42) Rash aspirin Allergy (Verified 10/04/18 12:42) bupropion HCl [From Wellbutrin] Allergy (Verified 10/04/18 12:42) carisoprodol [From Soma] Allergy (Verified 10/04/18 12:42) cefaclor [From Ceclor] Allergy (Verified 10/04/18 12:42) ceftibuten dihydrate [From Cedax] Allergy (Verified 10/04/18 12:42) cephalexin monohydrate [From Keflex] Allergy (Verified 10/04/18 12:42) clarithromycin [From Biaxin] Allergy (Verified 10/04/18 12:42) clotrimazole [From Lotrimin] Allergy (Verified 10/04/18 12:42) codeine [Codeine] Allergy (Verified 10/04/18 12:42) erythromycin base [Erythromycin Base] Allergy (Verified 10/04/18 12:42) ketorolac tromethamine [From Toradol] Allergy (Verified 10/04/18 12:42) loracarbef [From Lorabid] Allergy (Verified 10/04/18 12:42) meperidine HCl [From Demerol] Allergy (Verified 10/04/18 12:42) morphine Allergy (Verified 10/04/18 12:42) Norgestimate-Ethi *RETIRED-07/08/12 [From Ortho Tri-Cyclen (21)] Allergy ( Verified 10/04/18 12:42) Penicillins Allergy (Verified 10/04/18 12:42) prochlorperazine edisylate [From Compazine] Allergy (Verified 10/04/18 12:42) promethazine [From Phenergan] Allergy (Verified 10/04/18 12:42) Hives promethazine HCl [From Phenergan] Allergy (Verified 10/04/18 12:42) Sulfa (Sulfonamide Antibiotics) [Sulfa(Sulfonamide Antibiotics)] Allergy ( Verified 10/04/18 12:42) sumatriptan [From Imitrex] Allergy (Verified 10/04/18 12:42) melon Adverse Reaction (Verified 10/04/18 12:42) Home Medications: Budesonide/Formoterol Fumarate [Symbicort 160-4.5 Mcg Inhaler] 2 puff IH BID [History] Bumetanide [Bumex] 4 mg PO BID 10/10/15 [History] Cholecalciferol (Vitamin D3) [Vitamin D3] 2,000 unit PO UD 10/10/15 [History] Fenofibrate 160 mg PO DAILY 10/10/15 [History] Montelukast Sodium 10 mg PO DAILY 10/10/15 [History] Nitroglycerin 0.4 mg Tablet [Nitrostat 0.4 MG Tablet] 0.4 mg SL Q5MIN PRN MR X 3 PRN 10/10/15 [History] PANTOPRAZOLE 40 mg Tablet [Protonix 40MG Tablet] 40 mg PO DAILY 10/10/15 [ History] Polyethylene Glycol 3350 17 gm [Miralax Powder 17GM PACKET] 17 gm PO UD PRN 10/10/15 [History] Potassium Chloride 20 Meq [Klor-Con 20 MEQ] 20 meq PO DAILY 10/10/15 [History] Divalproex Sodium [Divalproex Sodium ER] 500 mg PO TID 03/06/16 [History] Albuterol 2.5 mg/3 ml Neb [Proventil 2.5 mg/3 ml Neb] 1 ea IH QID PRN PRN 07/08/18 [History] Albuterol Sulfate [Proair Hfa] 2 puffs IH QID 07/08/18 [History] Rosuvastatin Calcium [Crestor] 40 mg PO DAILY 07/08/18 [History] Insulin Glargine,Hum.rec.anlog [Basaglar Kwikpen U-100] 50 unit SQ BID 07/28/18 [History] Levothyroxine Sodium 112 Mcg [Synthroid 112 Mcg] 112 mcg PO DAILY 07/28/18 [History] Lisinopril 10 mg [Zestril 10 MG] 10 mg PO DAILY 07/28/18 [History] Lubiprostone [Amitiza] 24 mcg PO DAILY 07/28/18 [History] Magnesium Oxide [Magnesium] 400 mg PO DAILY 07/28/18 [History] Eszopiclone [Lunesta] 2 mg PO HS 10/04/18 [History] Insulin Regular, Human [Humulin R U-500 Kwikpen] 20 units SQ TID 10/04/18 [ History] Erenumab-Aooe [Aimovig Autoinjector] 70 mg SQ UD 11/23/18 [History] Hx Tetanus, Diphtheria Vaccination/Date Given: Yes (4 years ago?) Hx Influenza Vaccination/Date Given: No Hx Pneumococcal Vaccination/Date Given: No - Review of Systems Constitutional: No Symptoms Eyes: No Symptoms Ears, Nose, & Throat: No Symptoms Respiratory: No Symptoms Cardiac: No Symptoms Abdominal/Gastrointestinal: Nausea Genitourinary Symptoms: No Symptoms Musculoskeletal: No Symptoms Skin: No Symptoms Neurological: Headache Psychological: No Symptoms Endocrine: No Symptoms Hematologic/Lymphatic: No Symptoms Immunological/Allergic: No Symptoms All Other Systems: Reviewed and Negative - Past Medical History Pertinent Past Medical History: Yes Neurological History: Migraines ENT History: Cataracts Cardiac History: Congestive Heart Failure, High Cholesterol, Hypertension, Other Respiratory History: Asthma, COPD, Sleep Apnea Endocrine Medical History: Diabetes Type II, Hypothyroidism, Other Musculoskeletal History: Arthritis, Fibromyalgia GI Medical History: Esophageal Disorder History: Renal Disease Psycho-Social History: Anxiety, Bipolar, Depression Female Reproductive Disorders: No Pertinent History Other Medical History: 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, Mitral prolapse valve, pulmonary hypertension - Past Surgical History Past Surgical History: Yes Neuro Surgical History: Other Cardiac: Cardiac Catheterization Respiratory: No Pertinent History Gastrointestinal: Cholecystectomy Genitourinary: No Pertinent History Musculoskeletal: Orthopedic Surgery Female Surgical History: Hysterectomy Other Surgical History: carpal tunnel, trigger finger, tendon on right arm, ulnar nerve surgery, clipped left eye muscle, lt knee - Social History Smoking Status: Current every day smoker How long have you smoked: 40 yrs Exposure to second hand smoke: Yes Drug Use: none Patient Lives Alone: No - Nursing Vital Signs Nursing Vital Signs: Initial Vital Signs Temperature 98.4 F 11/23/18 18:31 Pulse Rate 73 11/23/18 18:31 Respiratory Rate 18 11/23/18 18:31 Blood Pressure 177/70 11/23/18 18:31 Pain Scale Pain Intensity 8 - Physical Exam General Appearance: mild distress, alert, obese Eye Exam: PERRL/EOMI, eyes nml inspection Ears, Nose, Throat Exam: normal ENT inspection, moist mucous membranes Neck Exam: normal inspection, non-tender, supple, full range of motion Respiratory Exam: airway intact, No chest tenderness, No respiratory distress Gastrointestinal/Abdominal Exam: No tenderness Back Exam: normal inspection, 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 of motion, No CVA tenderness, No vertebral tenderness Extremity Exam: normal inspection, 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 of motion, pelvis stable 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, 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, cooperative well logging captain mud analysis Exam: normal hearing, normal speech, PERRL, tongue midline Coordination/Gait Exam: normal finger to nose, normal gait, normal cerebellar function Motor/Sensory Exam: no motor deficit, no sensory deficit Skin Exam: normal color, warm, dry Lymphatic Exam: adenopathy SpO2 Interpretation: normal O2 Delivery: Room Air Ordered Tests: Medication Summary Discontinued Medications Generic Name Dose Route Start Last Admin Trade Name Fermínq PRN Reason Stop Dose Admin Hydromorphone HCl 1 mg 11/23/18 19:44 11/23/18 19:51 Hydromorphone 1 Mg/Ml Ampule IM 11/23/18 19:45 1 mg STAT ONE Administration Hydromorphone HCl Confirm 11/23/18 19:48 Hydromorphone 1 Mg/Ml Ampule Administered 11/23/18 19:49 Dose 1 mg .ROUTE .STK-MED ONE Ondansetron HCl 4 mg 11/23/18 19:45 11/23/18 19:51 Zofran 4 Mg/2 Ml Vial IM 11/23/18 19:46 4 mg STAT ONE Administration Ondansetron HCl Confirm 11/23/18 19:47 Zofran 4 Mg/2 Ml Vial Administered 11/23/18 19:48 Dose 4 mg .ROUTE .STK-MED ONE - Progress Progress: improved Air Movement: good Blood Culture(s) Obtained: No Antibiotics given: No Counseled pt/family regarding: diagnosis, need for follow-up - Departure Departure Disposition: Home Clinical Impression: Migraine headache Condition: Stable Critical Care Time: No Referrals: VAIBHAV CHURCHILL MD [Primary Care Provider] -
[2018-11-23] MEDS ORDERED: Hydromorphone 1 mg/ml Ampule IM ONE (19:44)
[2018-11-23] MEDS ORDERED: Zofran 4 MG/2 ML VIAL IM ONE (19:45)
[2018-11-23] MEDS ORDERED: Zofran 4 MG/2 ML VIAL ONE (19:47)
[2018-11-23] MEDS ORDERED: Hydromorphone 1 mg/ml Ampule ONE (19:48)
[2018-11-23 20:24] VITALS: BP 151/68; PULSE 67; O2SAT 97
== END 2018-11-23 20:24 | disposition home or self-care (01) ==
LOC: ED 18:25
DX: G43.909 Migraine, unspecified, not intractable, without status migrainosus (principal)
CPT/HCPCS: 96372; 99284; J1170; J2405

== ENCOUNTER 2018-12-01 22:48 | Emergency (ER) | payer MEDICARE ==
[2018-12-01 22:55] VITALS: O2SAT 98
[2018-12-01] MEDS ORDERED: DILAUDID 2 MG INJECTION IM ONE (23:07)
[2018-12-01] MEDS ORDERED: ZOFRAN ODT 4 MG PO ONE (23:08)
[2018-12-01] MEDS ORDERED: BENADRYL 50 MG/ML IM ONE (23:09)
--- NOTE | 2018-12-01 23:15 | ERPHSYRPT ---
- History of Present Illness Time Seen by Provider: 12/01/18 23:00 Source: patient Exam Limitations: no limitations Patient Subjective Stated Complaint: c/o headache, can only see white, pt calls it a "white out". Nausea. Triage Nursing Assessment: pt c/o headache to bilat sides of head, lungs clear, heart tones reg, abd lg, obese with active bs x4 quad. pt c/o nausea and dizziness, but no vomiting. Physician History: Sudden onset of typical type headache with nausea, photophobia and a band type throbbing, squeezing pain in a patient with confirmed migraine history. Patient started taking once monthly injections of Aimovig to help cut down the number of headaches she has a month in November of 2018. Patient tried Tylenol and Lilly and was unable to break her migraine this evening. Patient was reading when the migraine started Timing/Duration: hour(s) (4) Quality: throbbing, tightness Head Pain Location: global Severity of Pain-Max: severe Severity of Pain-Current: severe Recent Head Trauma: no recent headache/trauma, frequent headaches, chronic headaches Modifying Factors: Improves With: exposure to light (makes it worse), noise ( makes it worse) Associated Symptoms: dizziness, nausea/vomiting, sensitive to light, visual disturbance, No confusion, No fatigue, No facial pain, No fever/chills, No flushing, No light-headedness, No loss of consciousness, No nasal congestion, No nasal drainage, No neck pain, No numbness in legs/feet, No rash, No sweating , No scotoma, No seizures, No sinus infection, No speech problems, No stiff neck , No trouble walking, No weakness Previous symptoms: same symptoms as today, recently seen, recently treated Allergies/Adverse Reactions: adhesive Allergy (Intermediate, Verified 10/04/18 12:42) Rash ciprofloxacin HCl [From Cipro] Allergy (Intermediate, Verified 10/04/18 12:42) Rash gatifloxacin [From Tequin] Allergy (Intermediate, Verified 10/04/18 12:42) Rash levofloxacin [From Levaquin] Allergy (Intermediate, Verified 10/04/18 12:42) Rash aspirin Allergy (Verified 10/04/18 12:42) bupropion HCl [From Wellbutrin] Allergy (Verified 10/04/18 12:42) carisoprodol [From Soma] Allergy (Verified 10/04/18 12:42) cefaclor [From Ceclor] Allergy (Verified 10/04/18 12:42) ceftibuten dihydrate [From Cedax] Allergy (Verified 10/04/18 12:42) cephalexin monohydrate [From Keflex] Allergy (Verified 10/04/18 12:42) clarithromycin [From Biaxin] Allergy (Verified 10/04/18 12:42) clotrimazole [From Lotrimin] Allergy (Verified 10/04/18 12:42) codeine [Codeine] Allergy (Verified 10/04/18 12:42) erythromycin base [Erythromycin Base] Allergy (Verified 10/04/18 12:42) ketorolac tromethamine [From Toradol] Allergy (Verified 10/04/18 12:42) loracarbef [From Lorabid] Allergy (Verified 10/04/18 12:42) meperidine HCl [From Demerol] Allergy (Verified 10/04/18 12:42) morphine Allergy (Verified 10/04/18 12:42) Norgestimate-Ethi *RETIRED-07/08/12 [From Ortho Tri-Cyclen (21)] Allergy ( Verified 10/04/18 12:42) Penicillins Allergy (Verified 10/04/18 12:42) prochlorperazine edisylate [From Compazine] Allergy (Verified 10/04/18 12:42) promethazine [From Phenergan] Allergy (Verified 10/04/18 12:42) Hives promethazine HCl [From Phenergan] Allergy (Verified 10/04/18 12:42) Sulfa (Sulfonamide Antibiotics) [Sulfa(Sulfonamide Antibiotics)] Allergy ( Verified 10/04/18 12:42) sumatriptan [From Imitrex] Allergy (Verified 10/04/18 12:42) melon Adverse Reaction (Verified 10/04/18 12:42) Home Medications: Budesonide/Formoterol Fumarate [Symbicort 160-4.5 Mcg Inhaler] 2 puff IH BID [History] Bumetanide [Bumex] 4 mg PO BID 10/10/15 [History] Cholecalciferol (Vitamin D3) [Vitamin D3] 2,000 unit PO UD 10/10/15 [History] Fenofibrate 160 mg PO DAILY 10/10/15 [History] Montelukast Sodium 10 mg PO DAILY 10/10/15 [History] Nitroglycerin 0.4 mg Tablet [Nitrostat 0.4 MG Tablet] 0.4 mg SL Q5MIN PRN MR X 3 PRN 10/10/15 [History] PANTOPRAZOLE 40 mg Tablet [Protonix 40MG Tablet] 40 mg PO DAILY 10/10/15 [ History] Polyethylene Glycol 3350 17 gm [Miralax Powder 17GM PACKET] 17 gm PO UD PRN 10/10/15 [History] Potassium Chloride 20 Meq [Klor-Con 20 MEQ] 20 meq PO DAILY 10/10/15 [History] Divalproex Sodium [Divalproex Sodium ER] 500 mg PO BID 03/06/16 [History] Albuterol 2.5 mg/3 ml Neb [Proventil 2.5 mg/3 ml Neb] 1 ea IH QID PRN PRN 07/08/18 [History] Albuterol Sulfate [Proair Hfa] 2 puffs IH QID 07/08/18 [History] Rosuvastatin Calcium [Crestor] 40 mg PO DAILY 07/08/18 [History] Insulin Glargine,Hum.rec.anlog [Basaglar Kwikpen U-100] 50 unit SQ BID 07/28/18 [History] Levothyroxine Sodium 112 Mcg [Synthroid 112 Mcg] 112 mcg PO DAILY 07/28/18 [History] Lisinopril 10 mg [Zestril 10 MG] 10 mg PO DAILY 07/28/18 [History] Lubiprostone [Amitiza] 24 mcg PO DAILY 07/28/18 [History] Magnesium Oxide [Magnesium] 400 mg PO DAILY 07/28/18 [History] Insulin Regular, Human [Humulin R U-500 Kwikpen] 20 units SQ TID 10/04/18 [ History] Erenumab-Aooe [Aimovig Autoinjector] 70 mg SQ UD 11/23/18 [History] Levothyroxine Sodium 100 Mcg [Synthroid 100 Mcg] 100 mg PO DAILY 12/01/18 [ History] Hx Tetanus, Diphtheria Vaccination/Date Given: Yes Hx Influenza Vaccination/Date Given: No Hx Pneumococcal Vaccination/Date Given: Yes Immunizations Up to Date: Yes - Review of Systems Constitutional: No Fever, No Chills, No Lethargy, No Weakness Eyes: Photophobia, Vision Changes, No Eye Pain Ears, Nose, & Throat: No Ear Pain, No Nose Congestion, No Mouth Pain Respiratory: No Cough, No Dyspnea Cardiac: No Chest Pain, No Edema, No Syncope Abdominal/Gastrointestinal: Nausea, No Abdominal Pain, No Vomiting, No Diarrhea , No Hematemesis, No Hematochezia Genitourinary Symptoms: No Dysuria, No Hematuria, No Flank Pain Musculoskeletal: No Back Pain, No Neck Pain Skin: No Rash Neurological: No Dizziness, No Focal Weakness, No Sensory Changes Psychological: No Anxiety, No Hallucinations Endocrine: No Symptoms Hematologic/Lymphatic: No Easy Bleeding, No Easy Bruising All Other Systems: Reviewed and Negative - Past Medical History Pertinent Past Medical History: Yes Neurological History: Migraines ENT History: Cataracts Cardiac History: Congestive Heart Failure, High Cholesterol, Hypertension, Other Respiratory History: Asthma, COPD, Sleep Apnea Endocrine Medical History: Diabetes Type II, Hypothyroidism, Other Musculoskeletal History: Arthritis, Fibromyalgia GI Medical History: Esophageal Disorder History: Renal Disease Psycho-Social History: Anxiety, Bipolar, Depression Female Reproductive Disorders: No Pertinent History Other Medical History: 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 lt shoulder - Social History Smoking Status: Current every day smoker How long have you smoked: 43 yrs Exposure to second hand smoke: Yes Drug Use: none Patient Lives Alone: No - Female History Hx Now: No - Nursing Vital Signs Nursing Vital Signs: Initial Vital Signs Temperature 97.7 F 12/01/18 22:54 Pulse Rate 84 12/01/18 22:54 Respiratory Rate 18 12/01/18 22:54 Blood Pressure 162/68 12/01/18 22:54 O2 Sat by Pulse Oximetry 98 12/01/18 22:54 Pain Scale Pain Intensity 0 - Physical Exam General Appearance: no apparent distress Eye Exam: PERRL/EOMI Ears, Nose, Throat Exam: normal ENT inspection, moist mucous membranes Neck Exam: normal inspection, non-tender, supple, full range of motion, No meningismus, No Brudzinski, No lymphadenopathy, No midline tenderness Respiratory Exam: normal breath sounds, lungs clear, airway intact, No respiratory distress Cardiovascular Exam: regular rate/rhythm, normal heart sounds, normal peripheral pulses Gastrointestinal/Abdominal Exam: soft, No tenderness, No distention Back Exam: normal inspection, 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 of motion 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, 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, cooperative compliance analyst Exam: normal hearing, normal speech, PERRL, tongue midline, No facial droop , No facial paresthesias, No facial weakness, No tongue deviation to R, No tongue deviation to L Coordination/Gait Exam: normal cerebellar function Motor/Sensory Exam: no motor deficit, no sensory deficit Skin Exam: normal color, warm, dry, No rash Lymphatic Exam: No adenopathy SpO2 Interpretation: normal SpO2: 98 O2 Delivery: Room Air - CT Exams Head CT Interpretation: Negative, Tele-radiologist Report, No Fracture, No/ Intracranial Hemorrhag, Other (per radiologist interpretation: Brain-normal, no hemorrhage, unremarkable white matter, no mass effect. Ventricles normal, no ventriculomegaly; bones unremarkable for acute fracture; sinuses mild paranasal sinus disease; mastoid air cells visualized mastoid air cells are well aerated; soft tissue unremarkable. Overall impression: No acute intracranial abnormality ) Ordered Tests: Active Orders 24 hr Category Date Time Status HEAD WITHOUT CONTRAST [CT] Stat Exams 12/01/18 23:19 Taken Medication Summary Discontinued Medications Generic Name Dose Route Start Last Admin Trade Name Fermínq PRN Reason Stop Dose Admin Diphenhydramine HCl 50 mg 12/01/18 23:09 12/01/18 23:24 Benadryl 50 Mg/Ml IM 12/01/18 23:10 50 mg STAT ONE Administration Diphenhydramine HCl Confirm 12/01/18 23:21 Benadryl 50 Mg/Ml Administered 12/01/18 23:22 Dose 50 mg .ROUTE .STK-MED ONE Hydromorphone HCl 2 mg 12/01/18 23:07 12/01/18 23:27 Dilaudid 2 Mg Injection IM 12/01/18 23:08 2 mg ONCE ONE Administration Hydromorphone HCl Confirm 12/01/18 23:21 Hydromorphone 1 Mg/Ml Ampule Administered 12/01/18 23:22 Dose 2 mg .ROUTE .STK-MED ONE Hydromorphone HCl Confirm 12/01/18 23:26 Hydromorphone 1 Mg/Ml Ampule Administered 12/01/18 23:27 Dose 1 mg .ROUTE .STK-MED ONE Ondansetron HCl 4 mg 12/01/18 23:08 12/01/18 23:23 Zofran Odt 4 Mg PO 12/01/18 23:09 4 mg STAT ONE Administration Ondansetron HCl Confirm 12/01/18 23:21 Zofran Odt 4 Mg Administered 12/01/18 23:22 Dose 4 mg .ROUTE .STK-MED ONE - Progress Progress: re-examined Air Movement: good Progress Note: 12/01/18 23:19 Reviewed the chart for any imaging of her brain and none found. Did find CT Myelogram of the cervical spine on 03/2016 that did not show any significant spinal stenosis or cord compression but minimal left paracentral C5-6 disc osteophyte complex effacing the thecal sac 12/02/18 00:21 Headache has resolved with no further nausea and her vision has returned to baseline with no further visual disturbance and all [place] are normal. Counseled pt/family regarding: lab results, diagnosis, need for follow-up, rad results - Departure Departure Disposition: Home Clinical Impression: Headache Qualifiers: Headache type: unspecified Headache chronicity pattern: acute headache Intractability: not intractable Qualified Code(s): R51 - Headache Hypertension Qualifiers: Hypertension type: essential hypertension Qualified Code(s): I10 - Essential ( primary) hypertension Condition: Good Critical Care Time: No Referrals: VAIBHAV CHURCHILL MD [Primary Care Provider] - 12/03/18 Instructions: High Blood Pressure (DC), Headache, Adult (DC) Additional Instructions: Return immediately back to the emergency department if any worse at any time including any worsening headache, new visual changes, any fevers, any nausea or vomiting, or any other concerning signs and symptoms not present at the emergency department for immediate reevaluation in the emergency department.
[2018-12-01] MEDS ORDERED: ZOFRAN ODT 4 MG ONE (23:21)
[2018-12-01] MEDS ORDERED: BENADRYL 50 MG/ML ONE (23:21)
[2018-12-01] MEDS ORDERED: Hydromorphone 1 mg/ml Ampule ONE ×2 (23:21→23:26)
[2018-12-02 00:30] VITALS: BP 139/61; PULSE 60
--- NOTE | 2018-12-02 09:02 | XRAY ---
Indication: Migraine headache. Photophobia and nausea. History of migraines. Multiple contiguous axial images obtained through the head without contrast. Comparison: May 31, 2012. Again normal appearing brain parenchyma, ventricles, and bony calvarium. Visualized paranasal sinuses and mastoid air cells are grossly clear. Incidental bilateral maxillary sinus antrectomy. Impression: Again normal CT head without contrast exam. Comment: Preliminary interpretation was made by [facility]. No discrepancy. CT DI 70.21
== END 2018-12-02 00:30 | disposition home or self-care (01) ==
LOC: ED 22:48
DX: R51 Headache (principal); I10 Essential (primary) hypertension
CPT/HCPCS: 70450; 96372; 99284; J1170; J1200; Q0162

== ENCOUNTER 2019-01-02 18:49 | Emergency (ER) | payer MEDICARE ==
--- NOTE | 2019-01-02 19:31 | ERPHSYRPT ---
- History of Present Illness Time Seen by Provider: 01/02/19 19:28 Source: patient, family Exam Limitations: no limitations Patient Subjective Stated Complaint: pt states she has had a headache since 1500. Triage Nursing Assessment: pt alert and oreinted, answers questions approp. pt ambulatory from wheelchair to bed with steady gait noted. respirations nonlabored with lungs cta. pupils equal and reactive. bilat upper and lower ext strength equal and wnl. Physician History: pt presents with her usual migraine per her history, no blood thinners , no trauma, no neuro symptoms, gradual usual onset . many allergies and stadol works for rescue. Timing/Duration: today Quality: throbbing Head Pain Location: frontal, temporal Severity of Pain-Max: moderate Severity of Pain-Current: moderate Recent Head Trauma: no recent headache/trauma, frequent headaches, chronic headaches Modifying Factors: Improves With: exposure to light, medication Associated Symptoms: denies symptoms, No fever/chills, No nasal congestion, No numbness in legs/feet, No rash Previous symptoms: same symptoms as today Allergies/Adverse Reactions: adhesive Allergy (Intermediate, Verified 01/02/19 19:19) Rash ciprofloxacin HCl [From Cipro] Allergy (Intermediate, Verified 01/02/19 19:19) Rash gatifloxacin [From Tequin] Allergy (Intermediate, Verified 01/02/19 19:19) Rash levofloxacin [From Levaquin] Allergy (Intermediate, Verified 01/02/19 19:19) Rash aspirin Allergy (Verified 01/02/19 19:19) bupropion HCl [From Wellbutrin] Allergy (Verified 01/02/19 19:19) carisoprodol [From Soma] Allergy (Verified 01/02/19 19:19) cefaclor [From Ceclor] Allergy (Verified 01/02/19 19:19) ceftibuten dihydrate [From Cedax] Allergy (Verified 01/02/19 19:19) cephalexin monohydrate [From Keflex] Allergy (Verified 01/02/19 19:19) clarithromycin [From Biaxin] Allergy (Verified 01/02/19 19:19) clotrimazole [From Lotrimin] Allergy (Verified 01/02/19 19:19) codeine [Codeine] Allergy (Verified 01/02/19 19:19) erythromycin base [Erythromycin Base] Allergy (Verified 01/02/19 19:19) ketorolac tromethamine [From Toradol] Allergy (Verified 01/02/19 19:19) loracarbef [From Lorabid] Allergy (Verified 01/02/19 19:19) meperidine HCl [From Demerol] Allergy (Verified 01/02/19 19:19) morphine Allergy (Verified 01/02/19 19:19) Norgestimate-Ethi *RETIRED-07/08/12 [From Ortho Tri-Cyclen (21)] Allergy ( Verified 01/02/19 19:19) Penicillins Allergy (Verified 01/02/19 19:19) prochlorperazine edisylate [From Compazine] Allergy (Verified 01/02/19 19:19) promethazine [From Phenergan] Allergy (Verified 01/02/19 19:19) Hives promethazine HCl [From Phenergan] Allergy (Verified 01/02/19 19:19) Sulfa (Sulfonamide Antibiotics) [Sulfa(Sulfonamide Antibiotics)] Allergy ( Verified 01/02/19 19:19) sumatriptan [From Imitrex] Allergy (Verified 01/02/19 19:19) melon Adverse Reaction (Verified 01/02/19 19:19) Home Medications: Budesonide/Formoterol Fumarate [Symbicort 160-4.5 Mcg Inhaler] 2 puff IH BID [History] Bumetanide [Bumex] 4 mg PO BID 10/10/15 [History] Cholecalciferol (Vitamin D3) [Vitamin D3] 2,000 unit PO UD 10/10/15 [History] Fenofibrate 160 mg PO DAILY 10/10/15 [History] Montelukast Sodium 10 mg PO DAILY 10/10/15 [History] Nitroglycerin 0.4 mg Tablet [Nitrostat 0.4 MG Tablet] 0.4 mg SL Q5MIN PRN MR X 3 PRN 10/10/15 [History] PANTOPRAZOLE 40 mg Tablet [Protonix 40MG Tablet] 40 mg PO DAILY 10/10/15 [ History] Polyethylene Glycol 3350 17 gm [Miralax Powder 17GM PACKET] 17 gm PO UD PRN 10/10/15 [History] Potassium Chloride 20 Meq [Klor-Con 20 MEQ] 20 meq PO DAILY 10/10/15 [History] Divalproex Sodium [Divalproex Sodium ER] 500 mg PO BID 03/06/16 [History] Albuterol 2.5 mg/3 ml Neb [Proventil 2.5 mg/3 ml Neb] 1 ea IH QID PRN PRN 07/08/18 [History] Albuterol Sulfate [Proair Hfa] 2 puffs IH QID 07/08/18 [History] Rosuvastatin Calcium [Crestor] 40 mg PO DAILY 07/08/18 [History] Insulin Glargine,Hum.rec.anlog [Basaglar Kwikpen U-100] 50 unit SQ BID 07/28/18 [History] Levothyroxine Sodium 112 Mcg [Synthroid 112 Mcg] 112 mcg PO DAILY 07/28/18 [History] Lisinopril 10 mg [Zestril 10 MG] 10 mg PO DAILY 07/28/18 [History] Lubiprostone [Amitiza] 24 mcg PO DAILY 07/28/18 [History] Magnesium Oxide [Magnesium] 400 mg PO DAILY 07/28/18 [History] Insulin Regular, Human [Humulin R U-500 Kwikpen] 20 units SQ TID 10/04/18 [ History] Erenumab-Aooe [Aimovig Autoinjector] 70 mg SQ UD 11/23/18 [History] Levothyroxine Sodium 100 Mcg [Synthroid 100 Mcg] 100 mg PO DAILY 12/01/18 [ History] Hx Tetanus, Diphtheria Vaccination/Date Given: Yes Hx Influenza Vaccination/Date Given: No Hx Pneumococcal Vaccination/Date Given: Yes Immunizations Up to Date: Yes - Review of Systems Constitutional: No Fever, No Chills Eyes: No Symptoms Ears, Nose, & Throat: No Symptoms Respiratory: No Cough, No Dyspnea Cardiac: No Chest Pain, No Edema, No Syncope Abdominal/Gastrointestinal: No Abdominal Pain, No Nausea, No Vomiting, No Diarrhea Genitourinary Symptoms: No Dysuria Musculoskeletal: No Back Pain, No Neck Pain Skin: No Rash Neurological: Headache, No Dizziness, No Focal Weakness, No Sensory Changes Psychological: No Symptoms Endocrine: No Symptoms All Other Systems: Reviewed and Negative - Past Medical History Pertinent Past Medical History: Yes Neurological History: Migraines ENT History: Cataracts Cardiac History: Congestive Heart Failure, High Cholesterol, Hypertension, Other Respiratory History: Asthma, COPD, Sleep Apnea Endocrine Medical History: Diabetes Type II, Hypothyroidism, Other Musculoskeletal History: Arthritis, Fibromyalgia GI Medical History: Esophageal Disorder History: Renal Disease Psycho-Social History: Anxiety, Bipolar, Depression Female Reproductive Disorders: No Pertinent History Other Medical History: 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 lt shoulder - Social History Smoking Status: Current every day smoker How long have you smoked: 43 yrs Exposure to second hand smoke: Yes Drug Use: none Patient Lives Alone: No - Female History Hx Last Menstrual Period: hyster Hx Now: No - Nursing Vital Signs Nursing Vital Signs: Initial Vital Signs Temperature 97.6 F 01/02/19 19:09 Pulse Rate 80 01/02/19 19:09 Respiratory Rate 16 01/02/19 19:09 Blood Pressure 162/75 01/02/19 19:09 O2 Sat by Pulse Oximetry 99 01/02/19 19:09 Pain Scale Pain Intensity 9 - Physical Exam General Appearance: no apparent distress Eye Exam: PERRL/EOMI Ears, Nose, Throat Exam: normal ENT inspection, moist mucous membranes Neck Exam: normal inspection, supple, full range of motion, No meningismus Respiratory Exam: normal breath sounds, lungs clear Cardiovascular Exam: regular rate/rhythm, normal heart sounds Gastrointestinal/Abdominal Exam: soft, No tenderness, No distention Back Exam: normal inspection, 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 of motion 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, 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, 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 Exam: normal speech, PERRL, No facial droop Coordination/Gait Exam: normal cerebellar function Motor/Sensory Exam: no motor deficit, no sensory deficit, no pronator drift DTR Exam: bicep (R): 2+, bicep (L): 2+, tricep (R): 2+, tricep (L): 2+, knee (R) : 2+, knee (L): 2+, ankle (R): 2+, ankle (L): 2+ Skin Exam: normal color, warm, dry, No rash SpO2 Interpretation: normal SpO2: 99 O2 Delivery: Room Air - Course Nursing assessment & vital signs reviewed: Yes Ordered Tests: Medication Summary Generic Name Dose Route Start Last Admin Trade Name Freq PRN Reason Stop Dose Admin Magnesium Sulfate/Dextrose 100 mls @ 100 mls/hr 01/02/19 19:45 01/02/19 19:54 Magnesium 1 Gm / 100 Ml D5w IV 01/02/19 21:44 100 mls/hr Q1H LM Administration Discontinued Medications Generic Name Dose Route Start Last Admin Trade Name Freq PRN Reason Stop Dose Admin Butorphanol Tartrate 2 mg 01/02/19 19:33 01/02/19 19:54 Stadol 2 Mg IM 01/02/19 19:34 2 mg STAT ONE Administration Butorphanol Tartrate Confirm 01/02/19 19:45 Stadol 2 Mg Administered 01/02/19 19:46 Dose 2 mg .ROUTE .STK-MED ONE Ondansetron HCl 4 mg 01/02/19 19:32 01/02/19 19:54 Zofran 4 Mg/2 Ml Vial IV 01/02/19 19:33 4 mg STAT ONE Administration Ondansetron HCl Confirm 01/02/19 19:45 Zofran 4 Mg/2 Ml Vial Administered 01/02/19 19:46 Dose 4 mg .ROUTE .STK-MED ONE - Progress Progress: improved, re-examined Air Movement: good Progress Note: 01/02/19 20:27 headache resolving after treatment, pt would like DC with outpt f/u and is just beginning new regimen with PCPs. 01/02/19 20:28 she prefers DC and outpt tx to further tx or any further w/u in ER since this is a routine headache without new symptoms or concerns. she has the capacity to make that choice. Blood Culture(s) Obtained: No Antibiotics given: No Counseled pt/family regarding: diagnosis, need for follow-up - Departure Departure Disposition: Home Clinical Impression: Migraine Condition: Good Critical Care Time: No Referrals: VAIBHAV CHURCHILL MD [Primary Care Provider] - Instructions: Headache, Adult (DC), Migraine Headache (DC) Additional Instructions: followup headaches and blood pressure with your Doctors and return meantime if any concerns, fevers, new symptoms or worsening headaches or other concerns.
[2019-01-02] MEDS ORDERED: Zofran 4 MG/2 ML VIAL IV ONE (19:32)
[2019-01-02] MEDS ORDERED: STADOL 2 MG IM ONE (19:33)
[2019-01-02] MEDS ORDERED: STADOL 2 MG ONE (19:45)
[2019-01-02] MEDS ORDERED: Zofran 4 MG/2 ML VIAL ONE (19:45)
[2019-01-02] MEDS ORDERED: Magnesium 1 Gm / 100 Ml D5W*** 100 ML IV ONE (19:45)
[2019-01-02] MEDS ORDERED: Magnesium 1 Gm / 100 Ml D5W*** 100 ML IV SCH (19:45)
[2019-01-02 20:43] VITALS: BP 138/69; PULSE 67; O2SAT 97
== END 2019-01-02 20:42 | disposition home or self-care (01) ==
LOC: ED 18:49
DX: G43.909 Migraine, unspecified, not intractable, without status migrainosus (principal)
CPT/HCPCS: 36000; 96372; 96374; 99284; J0595; J2405; J3475

== ENCOUNTER 2019-01-06 08:29 | Day surgery (SDC) | payer MEDICARE ==
[2012-11-04 03:21] VITALS: BP 145/78
[2019-01-06] MEDS ORDERED: Xylocaine-Mpf 2% 5 Ml Vial IJ ONE (08:30)
[2019-01-06] MEDS ORDERED: Ketamine HCl 50 MG/ML ONE (10:23)
[2019-01-06] MEDS ORDERED: DIPRIVAN 200 MG/20 ML IV ONE (10:23)
--- NOTE | 2019-01-06 11:34 | XRAY ---
Indication: Bilateral L3-S1 MBB. Intraoperative fluoroscopy was provided for 22 seconds. Single digital spot image submitted for interpretation demonstrates posterior needle tips projecting over the expected course of the left and right L3-S1 nerve roots. Correlate with intraoperative findings/report.
--- NOTE | 2019-01-06 12:40 | XRAY ---
22 seconds fluoroscopy time in surgery for bilateral L3-S1 MBB.
[2019-01-06] MEDS ORDERED: Lactated Ringers 1,000 ML IV ONE (14:33)
== END 2019-01-06 10:55 | disposition home or self-care (01) ==
LOC: SDC-PAIN 08:29
PROVIDERS: ATTEND Psychiatry & Neurology Pain Medicine
DX: M47.816 Spondylosis without myelopathy or radiculopathy, lumbar region (principal); E11.40 Type 2 diabetes mellitus with diabetic neuropathy, unspecified; E05.90 Thyrotoxicosis, unspecified without thyrotoxic crisis or storm; G47.30 Sleep apnea, unspecified; J44.9 Chronic obstructive pulmonary disease, unspecified; I10 Essential (primary) hypertension; M79.7 Fibromyalgia; K21.9 Gastro-esophageal reflux disease without esophagitis; Z79.899 Other long term (current) drug therapy
CPT/HCPCS: 64493; 64494; 64495; 72020; 77002; 82962; J2704

== ENCOUNTER 2019-01-31 21:59 | Emergency (ER) | payer MEDICARE ==
--- NOTE | 2019-01-31 22:14 | ERPHSYRPT ---
- History of Present Illness Time Seen by Provider: 01/31/19 22:03 Source: patient Exam Limitations: no limitations Patient Subjective Stated Complaint: pt states that she has had headache for the past 3 days, pt states that she has radiating pain to neck, pt states that she has taken tylenol with no relief, pt states that she has had bronchitis and now has infection in the eye, pt is on azirthomax Triage Nursing Assessment: pt was wheeled into the er, pt has 8/10 pain to head , vitals wnl Physician History: 53 yo with poorly controlled migraines on multiple medications presents to the ER with 3 days of generalized headache ssharp throbbing to tight band around entire head associated with mild nausea. She has taken multiple medications at home with no relief. Patient reports she has headaches almost 5/7 days a week. It radiated bright light, noise and partial relief with sitting in a dark quiet room. denies any numbness tingling or focal weakness. No blurred vision. Headache is similar to previous episodes. Does not think this is the worse headache of her right. No difficulty moments of neck. Timing/Duration: day(s) (3) Quality: sharpness, throbbing, tightness Head Pain Location: global Severity of Pain-Max: moderate Severity of Pain-Current: moderate Recent Head Trauma: no recent headache/trauma, frequent headaches Modifying Factors: Improves With: cold therapy, exposure to light, noise Previous symptoms: same symptoms as today Allergies/Adverse Reactions: adhesive Allergy (Intermediate, Verified 01/31/19 22:19) Rash ciprofloxacin HCl [From Cipro] Allergy (Intermediate, Verified 01/31/19 22:19) Rash gatifloxacin [From Tequin] Allergy (Intermediate, Verified 01/31/19 22:19) Rash levofloxacin [From Levaquin] Allergy (Intermediate, Verified 01/31/19 22:19) Rash aspirin Allergy (Verified 01/31/19 22:19) bupropion HCl [From Wellbutrin] Allergy (Verified 01/31/19 22:19) carisoprodol [From Soma] Allergy (Verified 01/31/19 22:19) cefaclor [From Ceclor] Allergy (Verified 01/31/19 22:19) ceftibuten dihydrate [From Cedax] Allergy (Verified 01/31/19 22:19) cephalexin monohydrate [From Keflex] Allergy (Verified 01/31/19 22:19) clarithromycin [From Biaxin] Allergy (Verified 01/31/19 22:19) clotrimazole [From Lotrimin] Allergy (Verified 01/31/19 22:19) codeine [Codeine] Allergy (Verified 01/31/19 22:19) erythromycin base [Erythromycin Base] Allergy (Verified 01/31/19 22:19) ketorolac tromethamine [From Toradol] Allergy (Verified 01/31/19 22:19) loracarbef [From Lorabid] Allergy (Verified 01/31/19 22:19) meperidine HCl [From Demerol] Allergy (Verified 01/31/19 22:19) morphine Allergy (Verified 01/31/19 22:19) Norgestimate-Ethi *RETIRED-07/08/12 [From Ortho Tri-Cyclen (21)] Allergy ( Verified 01/31/19 22:19) Penicillins Allergy (Verified 01/31/19 22:19) prochlorperazine edisylate [From Compazine] Allergy (Verified 01/31/19 22:19) promethazine [From Phenergan] Allergy (Verified 01/02/19 19:19) Hives promethazine HCl [From Phenergan] Allergy (Verified 01/02/19 19:19) Sulfa (Sulfonamide Antibiotics) [Sulfa(Sulfonamide Antibiotics)] Allergy ( Verified 01/02/19 19:19) sumatriptan [From Imitrex] Allergy (Verified 01/02/19 19:19) melon Adverse Reaction (Verified 01/02/19 19:19) Home Medications: Budesonide/Formoterol Fumarate [Symbicort 160-4.5 Mcg Inhaler] 2 puff IH BID [History] Bumetanide [Bumex] 4 mg PO BID 10/10/15 [History] Cholecalciferol (Vitamin D3) [Vitamin D3] 2,000 unit PO UD 10/10/15 [History] Fenofibrate 160 mg PO DAILY 10/10/15 [History] Montelukast Sodium 10 mg PO DAILY 10/10/15 [History] Nitroglycerin 0.4 mg Tablet [Nitrostat 0.4 MG Tablet] 0.4 mg SL Q5MIN PRN MR X 3 PRN 10/10/15 [History] PANTOPRAZOLE 40 mg Tablet [Protonix 40MG Tablet] 40 mg PO DAILY 10/10/15 [ History] Polyethylene Glycol 3350 17 gm [Miralax Powder 17GM PACKET] 17 gm PO UD PRN 10/10/15 [History] Potassium Chloride 20 Meq [Klor-Con 20 MEQ] 20 meq PO DAILY 10/10/15 [History] Divalproex Sodium [Divalproex Sodium ER] 500 mg PO BID 03/06/16 [History] Albuterol 2.5 mg/3 ml Neb [Proventil 2.5 mg/3 ml Neb] 1 ea IH QID PRN PRN 07/08/18 [History] Albuterol Sulfate [Proair Hfa] 2 puffs IH QID 07/08/18 [History] Rosuvastatin Calcium [Crestor] 40 mg PO DAILY 07/08/18 [History] Insulin Glargine,Hum.rec.anlog [Basaglar Kwikpen U-100] 50 unit SQ BID 07/28/18 [History] Levothyroxine Sodium 112 Mcg [Synthroid 112 Mcg] 112 mcg PO DAILY 07/28/18 [History] Lisinopril 10 mg [Zestril 10 MG] 10 mg PO DAILY 07/28/18 [History] Lubiprostone [Amitiza] 24 mcg PO DAILY 07/28/18 [History] Magnesium Oxide [Magnesium] 400 mg PO DAILY 07/28/18 [History] Insulin Regular, Human [Humulin R U-500 Kwikpen] 20 units SQ TID 10/04/18 [ History] Erenumab-Aooe [Aimovig Autoinjector] 70 mg SQ UD 11/23/18 [History] Levothyroxine Sodium 100 Mcg [Synthroid 100 Mcg] 100 mg PO DAILY 12/01/18 [ History] Azithromycin 250 mg PO DAILY 01/31/19 [History] Topiramate 50 mg PO DAILY 01/31/19 [History] Hx Tetanus, Diphtheria Vaccination/Date Given: Yes Hx Influenza Vaccination/Date Given: No Hx Pneumococcal Vaccination/Date Given: Yes - Past Medical History Pertinent Past Medical History: Yes Neurological History: Migraines ENT History: Cataracts Cardiac History: Congestive Heart Failure, High Cholesterol, Hypertension, Other Respiratory History: Asthma, COPD, Sleep Apnea Endocrine Medical History: Diabetes Type II, Hypothyroidism, Other Musculoskeletal History: Arthritis, Fibromyalgia GI Medical History: Esophageal Disorder History: Renal Disease Psycho-Social History: Anxiety, Bipolar, Depression Female Reproductive Disorders: No Pertinent History Other Medical History: 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 lt shoulder, spinal block - Social History Smoking Status: Current every day smoker How long have you smoked: 43 yrs Exposure to second hand smoke: Yes Drug Use: none Patient Lives Alone: No - Nursing Vital Signs Nursing Vital Signs: Initial Vital Signs Temperature 97.3 F 01/31/19 22:14 Pulse Rate 75 01/31/19 22:14 Respiratory Rate 16 01/31/19 22:14 Blood Pressure 132/72 01/31/19 22:14 O2 Sat by Pulse Oximetry 97 01/31/19 22:14 Pain Scale Pain Intensity 5 - Physical Exam General Appearance: no apparent distress Eye Exam: PERRL/EOMI, eyes nml inspection Ears, Nose, Throat Exam: normal ENT inspection, TMs normal, pharynx normal Neck Exam: normal inspection, non-tender, full range of motion Respiratory Exam: normal breath sounds, lungs clear Cardiovascular Exam: regular rate/rhythm, normal heart sounds Gastrointestinal/Abdominal Exam: soft, normal bowel sounds, No tenderness, No distention Back Exam: normal inspection, 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 of motion Extremity Exam: normal inspection, 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 of motion 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, 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, 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: normal hearing, normal speech, PERRL, No facial droop, No facial paresthesias, No facial weakness, No gaze palsy Coordination/Gait Exam: normal finger to nose, normal cerebellar function Motor/Sensory Exam: no motor deficit, no sensory deficit, no pronator drift, negative Babinski's sign DTR Exam: bicep (R): 2+, bicep (L): 2+, knee (R): 2+, knee (L): 2+ Skin Exam: normal color, warm, dry SpO2 Interpretation: normal O2 Delivery: Room Air - Course Nursing assessment & vital signs reviewed: Yes Ordered Tests: Medication Summary Discontinued Medications Generic Name Dose Route Start Last Admin Trade Name Bety PRN Reason Stop Dose Admin Butorphanol Tartrate 1 mg 01/31/19 22:15 01/31/19 22:29 Stadol 2 Mg IM 01/31/19 22:16 1 mg STAT ONE Administration Butorphanol Tartrate Confirm 01/31/19 22:20 Stadol 2 Mg Administered 01/31/19 22:21 Dose 2 mg .ROUTE .STK-MED ONE Diphenhydramine HCl 25 mg 01/31/19 22:16 01/31/19 22:29 Benadryl 50 Mg/Ml IM 01/31/19 22:17 25 mg STAT ONE Administration Diphenhydramine HCl Confirm 01/31/19 22:20 Benadryl 50 Mg/Ml Administered 01/31/19 22:21 Dose 50 mg .ROUTE .STK-MED ONE Metoclopramide HCl 10 mg 01/31/19 22:15 01/31/19 22:29 Reglan 10 Mg/2 Ml IM 01/31/19 22:16 10 mg STAT ONE Administration Metoclopramide HCl Confirm 01/31/19 22:21 Reglan 10 Mg/2 Ml Administered 01/31/19 22:22 Dose 10 mg .ROUTE .STK-MED ONE - Progress Progress: improved Air Movement: good Progress Note: she has nonfocal neuro exam to abstain the ER. She is given migraine cocktail and her symptoms are improved. Do not think she needs imaging or any other workup. No signs of meningismus. Recommended outpatient primary care neurology followup. Discussed signs and symptoms of worsening needed return to ER if she seemed understanding. 01/31/19 22:50 Antibiotics given: No Counseled pt/family regarding: diagnosis, need for follow-up - Departure Departure Disposition: Home Clinical Impression: Migraine Qualifiers: Migraine type: without aura Status migrainosus presence: without status migrainosus Intractability: not intractable Qualified Code(s): G43.009 - Migraine without aura, not intractable, without status migrainosus Condition: Good Critical Care Time: No Referrals: VAIBHAV CHURCHILL MD [Primary Care Provider] - (1-2 days for re evaluation) DEB GOLDMAN [NON-STAFF PHY W/O PRIVILEGES] - (follow up in 1-2 days ) Instructions: Headache, Adult (DC) Additional Instructions: follow up with PCP and Neurology for re evaluation. return for any worsening
[2019-01-31] MEDS ORDERED: BENADRYL 50 MG/ML ONE (22:20)
[2019-01-31] MEDS ORDERED: STADOL 2 MG ONE (22:20)
[2019-01-31] MEDS ORDERED: Reglan 10 MG/2 ML ONE (22:21)
[2019-01-31] MEDS: BENADRYL 50 MG/ML IM ONE (22:29)
[2019-01-31] MEDS: Reglan 10 MG/2 ML IM ONE (22:29)
[2019-01-31] MEDS: STADOL 2 MG IM ONE (22:29)
[2019-01-31 22:46] VITALS: BP 108/67; PULSE 76; O2SAT 98
== END 2019-01-31 22:53 | disposition home or self-care (01) ==
LOC: ED 21:59
DX: G43.909 Migraine, unspecified, not intractable, without status migrainosus (principal)
CPT/HCPCS: 96372; 99284; J0595; J1200

== ENCOUNTER 2019-05-04 12:01 | Emergency (ER) | payer MEDICARE ==
--- NOTE | 2019-05-04 12:35 | ERPHSYRPT ---
- History of Present Illness Time Seen by Provider: 05/04/19 12:33 Source: patient Exam Limitations: no limitations Patient Subjective Stated Complaint: Headache Triage Nursing Assessment: Patient brought back to ED via w/c and transferred self to bed. Patient A+O X3. Patient's skin flushed, warm and dry. Patient complains of headache for 3 days that her pain meds aren't touching the pain. Patient complains of sharp, stabbing pain in head. Patient has dx of migraines. Physician History: The patient is a 53-year-old female with a past medical history significant for migraines, diabetes mellitus, blindness in her left eye, hypertension, CHF, CKD who presents with a chief complaint of a headache. Onset reportedly was 3 days ago. She endorsed having her typical migraine symptoms were were described as a frontal headache that radiates to the back of her head and neck and was described as a sharp pain that is constant. The pain is associated with photophobia in the right eye in addition to nausea in addition to vomiting. She reportedly has been taken [place] for her headaches with no relief in her symptoms. She is not managed by a neurologist and is managed by her primary care provider for her headaches. Of note, the patient reportedly has multiple drug allergies and reportedly cannot take Reglan, Haldol and oral NSAIDs. She was receptive to receiving Tylenol in addition to ondansetron for her symptoms. She reportedly cannot take Compazine and was asking for Dilaudid to treat her headache symptoms. There is no reported fever, chills, syncope and the headache gradually worsened over last 3 days. The patient reportedly is not anticoagulated and she denies any recent head injury. Timing/Duration: day(s) (3) Allergies/Adverse Reactions: adhesive Allergy (Intermediate, Verified 05/04/19 12:12) Rash ciprofloxacin HCl [From Cipro] Allergy (Intermediate, Verified 05/04/19 12:12) Rash gatifloxacin [From Tequin] Allergy (Intermediate, Verified 05/04/19 12:12) Rash levofloxacin [From Levaquin] Allergy (Intermediate, Verified 05/04/19 12:12) Rash aspirin Allergy (Verified 05/04/19 12:12) bupropion HCl [From Wellbutrin] Allergy (Verified 05/04/19 12:12) carisoprodol [From Soma] Allergy (Verified 05/04/19 12:12) cefaclor [From Ceclor] Allergy (Verified 05/04/19 12:12) ceftibuten dihydrate [From Cedax] Allergy (Verified 05/04/19 12:12) cephalexin monohydrate [From Keflex] Allergy (Verified 05/04/19 12:12) clarithromycin [From Biaxin] Allergy (Verified 05/04/19 12:12) clotrimazole [From Lotrimin] Allergy (Verified 05/04/19 12:12) codeine [Codeine] Allergy (Verified 05/04/19 12:12) erythromycin base [Erythromycin Base] Allergy (Verified 05/04/19 12:12) ketorolac tromethamine [From Toradol] Allergy (Verified 05/04/19 12:12) loracarbef [From Lorabid] Allergy (Verified 05/04/19 12:12) meperidine HCl [From Demerol] Allergy (Verified 05/04/19 12:12) morphine Allergy (Verified 05/04/19 12:12) Norgestimate-Ethi *RETIRED-07/08/12 [From Ortho Tri-Cyclen (21)] Allergy ( Verified 05/04/19 12:12) Penicillins Allergy (Verified 05/04/19 12:12) prochlorperazine edisylate [From Compazine] Allergy (Verified 05/04/19 12:12) promethazine [From Phenergan] Allergy (Verified 05/04/19 12:12) Hives promethazine HCl [From Phenergan] Allergy (Verified 05/04/19 12:12) Sulfa (Sulfonamide Antibiotics) [Sulfa(Sulfonamide Antibiotics)] Allergy ( Verified 05/04/19 12:12) sumatriptan [From Imitrex] Allergy (Verified 05/04/19 12:12) melon Adverse Reaction (Verified 05/04/19 12:12) Home Medications: Budesonide/Formoterol Fumarate [Symbicort 160-4.5 Mcg Inhaler] 2 puff IH BID [History] Bumetanide [Bumex] 4 mg PO BID 10/10/15 [History] Cholecalciferol (Vitamin D3) [Vitamin D3] 2,000 unit PO UD 10/10/15 [History] Fenofibrate 160 mg PO DAILY 10/10/15 [History] Montelukast Sodium 10 mg PO DAILY 10/10/15 [History] Nitroglycerin 0.4 mg Tablet [Nitrostat 0.4 MG Tablet] 0.4 mg SL Q5MIN PRN MR X 3 PRN 10/10/15 [History] PANTOPRAZOLE 40 mg Tablet [Protonix 40MG Tablet] 40 mg PO DAILY 10/10/15 [ History] Polyethylene Glycol 3350 17 gm [Miralax Powder 17GM PACKET] 17 gm PO UD PRN 10/10/15 [History] Potassium Chloride 20 Meq [Klor-Con 20 MEQ] 20 meq PO DAILY 10/10/15 [History] Divalproex Sodium [Divalproex Sodium ER] 500 mg PO BID 03/06/16 [History] Albuterol 2.5 mg/3 ml Neb [Proventil 2.5 mg/3 ml Neb] 1 ea IH QID PRN PRN 07/08/18 [History] Albuterol Sulfate [Proair Hfa] 2 puffs IH QID 07/08/18 [History] Rosuvastatin Calcium [Crestor] 40 mg PO DAILY 07/08/18 [History] Insulin Glargine,Hum.rec.anlog [Basaglar Kwikpen U-100] 50 unit SQ BID 07/28/18 [History] Levothyroxine Sodium 112 Mcg [Synthroid 112 Mcg] 112 mcg PO DAILY 07/28/18 [History] Lisinopril 10 mg [Zestril 10 MG] 10 mg PO DAILY 07/28/18 [History] Lubiprostone [Amitiza] 24 mcg PO DAILY 07/28/18 [History] Magnesium Oxide [Magnesium] 400 mg PO DAILY 07/28/18 [History] Insulin Regular, Human [Humulin R U-500 Kwikpen] 20 units SQ TID 10/04/18 [ History] Erenumab-Aooe [Aimovig Autoinjector] 70 mg SQ UD 11/23/18 [History] Levothyroxine Sodium 100 Mcg [Synthroid 100 Mcg] 100 mg PO DAILY 12/01/18 [ History] Azithromycin 250 mg PO DAILY 01/31/19 [History] Topiramate 50 mg PO DAILY 01/31/19 [History] Hx Tetanus, Diphtheria Vaccination/Date Given: No Hx Influenza Vaccination/Date Given: No Hx Pneumococcal Vaccination/Date Given: No Immunizations Up to Date: Yes - Review of Systems Constitutional: No Fever, No Chills, No Weakness Eyes: Photophobia, No Eye Pain, No Vision Changes Respiratory: No Cough, No Dyspnea Abdominal/Gastrointestinal: Nausea, Vomiting, No Abdominal Pain Musculoskeletal: No Symptoms Neurological: Headache All Other Systems: Reviewed and Negative - Past Medical History Pertinent Past Medical History: Yes Neurological History: Migraines ENT History: Cataracts Cardiac History: Congestive Heart Failure, High Cholesterol, Hypertension, Other Respiratory History: Asthma, COPD, Sleep Apnea Endocrine Medical History: Diabetes Type II, Hypothyroidism, Other Musculoskeletal History: Arthritis, Fibromyalgia GI Medical History: Esophageal Disorder History: Renal Disease Psycho-Social History: Anxiety, Bipolar, Depression Female Reproductive Disorders: No Pertinent History Other Medical History: 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 lt shoulder, spinal block - Social History Smoking Status: Current every day smoker How long have you smoked: 43 yrs Exposure to second hand smoke: Yes Drug Use: none Patient Lives Alone: No - Female History Hx Last Menstrual Period: hysterectomy Hx Now: No - Nursing Vital Signs Nursing Vital Signs: Initial Vital Signs Temperature 98.0 F 05/04/19 12:12 Pulse Rate 75 05/04/19 12:12 Respiratory Rate 20 05/04/19 12:12 Blood Pressure 191/92 05/04/19 12:12 O2 Sat by Pulse Oximetry 100 05/04/19 12:12 Pain Scale Pain Intensity 8 - Physical Exam General Appearance: no apparent distress, alert Ears, Nose, Throat Exam: TMs normal, No pharynx normal, No TM abnormal (R), No TM abnormal (L), No pharyngeal erythema, No tonsillar exudate Neck Exam: normal inspection Respiratory Exam: normal breath sounds, lungs clear, No chest tenderness, No respiratory distress Cardiovascular Exam: regular rate/rhythm, normal heart sounds, normal peripheral pulses Gastrointestinal/Abdomen Exam: soft Neurologic Exam: alert, 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, cooperative Skin Exam: normal color SpO2: 100 - Course Nursing assessment & vital signs reviewed: Yes Ordered Tests: Active Orders 24 hr Category Date Time Status IV Insertion STAT Care 05/04/19 12:50 Active Medication Summary Discontinued Medications Generic Name Dose Route Start Last Admin Trade Name Bety PRN Reason Stop Dose Admin Acetaminophen 975 mg 05/04/19 13:05 05/04/19 13:07 Tylenol 325 Mg PO 05/04/19 13:06 975 mg STAT STA Administration Acetaminophen Confirm 05/04/19 13:04 Tylenol 325 Mg Administered 05/04/19 13:05 Dose 975 mg .ROUTE .STK-MED ONE Sodium Chloride 1,000 mls @ 999 mls/hr 05/04/19 12:50 05/04/19 14:05 Sodium Chloride 0.9% 1000 Ml IV 05/04/19 13:50 Infused .Q1H1M STA Infusion Sodium Chloride Confirm 05/04/19 13:05 Sodium Chloride 0.9% 1000 Ml Administered 05/04/19 13:06 Dose 1,000 mls @ ud .ROUTE .STK-MED ONE Ondansetron HCl 4 mg 05/04/19 12:50 05/04/19 13:07 Zofran 4 Mg/2 Ml Vial IV 05/04/19 12:51 4 mg STAT ONE Administration Ondansetron HCl Confirm 05/04/19 13:04 Zofran 4 Mg/2 Ml Vial Administered 05/04/19 13:05 Dose 4 mg .ROUTE .STK-MED ONE - Progress Progress: improved, re-examined Progress Note: 05/04/19 13:54 Is reassessed to find that she appeared to be in no obvious distress and was playing Candy Crush on her cell phone and was requested to be discharged home because she needed to catch the bus at 2:00. I offered her a Zofran prescription and offered to send this to her pharmacy however she has if I can give her a printed version of this medication so she can shop pharmacies for the cheaper drug bailey. The patient endorsed having left over ondansetron at home from a previous prescription, but has not taken any over the past 3 days, but wanted a refill. 05/05/19 08:53 Nontoxic in appearance. Low suspicion for ICH, mass, CVT, and acute/subacute CVA at this time. She described her typical migraine/headache symptoms. ? whether or not post-analgesic headache given she reportedly takes [place] for her headache symptoms. She was not receptive to receiving compazine, Reglan, and/ or Haldol for relief given she has received these medications before and didn't "like the way they made me feel." She refused a single dose of Toradol, which was understandable given her hx of CKD which was confirmed when viewing her EMR. Patient also had a similar ED presentation in the fall of 2018 and had a HCT that was benign. I chose to defer neurocranial imaging today because of this and due to my above notations. She requested Dilaudid, which I didn't think was appropriate given her over well appearance and given post-analgesic ESPINOZA is on the differential. She was receptive to receiving IVF, ondansetron, and APAP. 05/05/19 09:15 - Departure Departure Disposition: Home, Extended Care Facility Clinical Impression: Migraine Condition: Stable Critical Care Time: No Referrals: VAIBHAV CHURCHILL MD [Primary Care Provider] - Instructions: Migraine Headache (DC) Prescriptions: Ondansetron [Ondansetron Odt] 4 mg PO Q6-8HPRN PRN #20 tab.rapdis PRN Reason: Nausea/Vomiting
[2019-05-04] MEDS ORDERED: Sodium Chloride 0.9% 1000 ML 1,000 ML IV STA (12:50)
[2019-05-04] MEDS ORDERED: Zofran 4 MG/2 ML VIAL IV ONE (12:50)
[2019-05-04] MEDS ORDERED: Zofran 4 MG/2 ML VIAL ONE (13:04)
[2019-05-04] MEDS ORDERED: TYLENOL 325 MG ONE (13:04)
[2019-05-04] MEDS ORDERED: TYLENOL 325 MG PO STA (13:05)
[2019-05-04] MEDS ORDERED: Sodium Chloride 0.9% 1000 ML 1,000 ML ONE (13:05)
[2019-05-04 14:01] VITALS: BP 139/79; PULSE 72
[2019-05-05 09:15] VITALS: O2SAT 100
== END 2019-05-04 14:11 | disposition home or self-care (01) ==
LOC: ED 12:01
DX: G43.909 Migraine, unspecified, not intractable, without status migrainosus (principal); E11.9 Type 2 diabetes mellitus without complications; I10 Essential (primary) hypertension; I50.9 Heart failure, unspecified; N18.9 Chronic kidney disease, unspecified; Z79.01 Long term (current) use of anticoagulants; Z79.899 Other long term (current) drug therapy; Z79.4 Long term (current) use of insulin; E78.00 Pure hypercholesterolemia, unspecified; E03.9 Hypothyroidism, unspecified
CPT/HCPCS: 36000; 96360; 96374; 99284; J2405; A9270-GY

== ENCOUNTER 2019-06-06 10:07 | Emergency (ER) | payer MEDICARE ==
[2019-06-06] MEDS ORDERED: Zofran 4 MG/2 ML VIAL IM ONE (10:29)
[2019-06-06] MEDS ORDERED: Hydromorphone 1 mg/ml Ampule IM ONE (10:29)
--- NOTE | 2019-06-06 10:38 | ERPHSYRPT ---
- History of Present Illness Time Seen by Provider: 06/06/19 10:30 Source: patient Exam Limitations: no limitations Physician History: Patient is 53-year-old female came to the emergency room with complaining of severe frontal headache. She has a history of chronic migraine headache. She is also complaining of nausea. Timing/Duration: day(s) (three) Quality: aching, throbbing Head Pain Location: frontal Severity of Pain-Max: moderate Severity of Pain-Current: severe Recent Head Trauma: frequent headaches Associated Symptoms: nausea/vomiting, sensitive to light, stiff neck Previous symptoms: same symptoms as today Allergies/Adverse Reactions: adhesive Allergy (Intermediate, Verified 05/04/19 12:12) Rash ciprofloxacin HCl [From Cipro] Allergy (Intermediate, Verified 05/04/19 12:12) Rash gatifloxacin [From Tequin] Allergy (Intermediate, Verified 05/04/19 12:12) Rash levofloxacin [From Levaquin] Allergy (Intermediate, Verified 05/04/19 12:12) Rash aspirin Allergy (Verified 05/04/19 12:12) bupropion HCl [From Wellbutrin] Allergy (Verified 05/04/19 12:12) carisoprodol [From Soma] Allergy (Verified 05/04/19 12:12) cefaclor [From Ceclor] Allergy (Verified 05/04/19 12:12) ceftibuten dihydrate [From Cedax] Allergy (Verified 05/04/19 12:12) cephalexin monohydrate [From Keflex] Allergy (Verified 05/04/19 12:12) clarithromycin [From Biaxin] Allergy (Verified 05/04/19 12:12) clotrimazole [From Lotrimin] Allergy (Verified 05/04/19 12:12) codeine [Codeine] Allergy (Verified 05/04/19 12:12) erythromycin base [Erythromycin Base] Allergy (Verified 05/04/19 12:12) ketorolac tromethamine [From Toradol] Allergy (Verified 05/04/19 12:12) loracarbef [From Lorabid] Allergy (Verified 05/04/19 12:12) meperidine HCl [From Demerol] Allergy (Verified 05/04/19 12:12) morphine Allergy (Verified 05/04/19 12:12) Norgestimate-Ethi *RETIRED-07/08/12 [From Ortho Tri-Cyclen (21)] Allergy ( Verified 05/04/19 12:12) Penicillins Allergy (Verified 05/04/19 12:12) prochlorperazine edisylate [From Compazine] Allergy (Verified 05/04/19 12:12) promethazine [From Phenergan] Allergy (Verified 05/04/19 12:12) Hives promethazine HCl [From Phenergan] Allergy (Verified 05/04/19 12:12) Sulfa (Sulfonamide Antibiotics) [Sulfa(Sulfonamide Antibiotics)] Allergy ( Verified 05/04/19 12:12) sumatriptan [From Imitrex] Allergy (Verified 05/04/19 12:12) melon Adverse Reaction (Verified 05/04/19 12:12) Home Medications: Budesonide/Formoterol Fumarate [Symbicort 160-4.5 Mcg Inhaler] 2 puff IH BID [History] Bumetanide [Bumex] 4 mg PO BID 10/10/15 [History] Cholecalciferol (Vitamin D3) [Vitamin D3] 2,000 unit PO UD 10/10/15 [History] Fenofibrate 160 mg PO DAILY 10/10/15 [History] Montelukast Sodium 10 mg PO DAILY 10/10/15 [History] Nitroglycerin 0.4 mg Tablet [Nitrostat 0.4 MG Tablet] 0.4 mg SL Q5MIN PRN MR X 3 PRN 10/10/15 [History] PANTOPRAZOLE 40 mg Tablet [Protonix 40MG Tablet] 40 mg PO DAILY 10/10/15 [ History] Polyethylene Glycol 3350 17 gm [Miralax Powder 17GM PACKET] 17 gm PO UD PRN 10/10/15 [History] Potassium Chloride 20 Meq [Klor-Con 20 MEQ] 20 meq PO DAILY 10/10/15 [History] Divalproex Sodium [Divalproex Sodium ER] 500 mg PO BID 03/06/16 [History] Albuterol 2.5 mg/3 ml Neb [Proventil 2.5 mg/3 ml Neb] 1 ea IH QID PRN PRN 07/08/18 [History] Albuterol Sulfate [Proair Hfa] 2 puffs IH QID 07/08/18 [History] Rosuvastatin Calcium [Crestor] 40 mg PO DAILY 07/08/18 [History] Insulin Glargine,Hum.rec.anlog [Basaglar Kwikpen U-100] 50 unit SQ BID 07/28/18 [History] Levothyroxine Sodium 112 Mcg [Synthroid 112 Mcg] 112 mcg PO DAILY 07/28/18 [History] Lisinopril 10 mg [Zestril 10 MG] 10 mg PO DAILY 07/28/18 [History] Lubiprostone [Amitiza] 24 mcg PO DAILY 07/28/18 [History] Magnesium Oxide [Magnesium] 400 mg PO DAILY 07/28/18 [History] Insulin Regular, Human [Humulin R U-500 Kwikpen] 20 units SQ TID 10/04/18 [ History] Erenumab-Aooe [Aimovig Autoinjector] 70 mg SQ UD 11/23/18 [History] Levothyroxine Sodium 100 Mcg [Synthroid 100 Mcg] 100 mg PO DAILY 12/01/18 [ History] Azithromycin 250 mg PO DAILY 01/31/19 [History] Topiramate 50 mg PO DAILY 01/31/19 [History] Hx Tetanus, Diphtheria Vaccination/Date Given: No Hx Influenza Vaccination/Date Given: No Hx Pneumococcal Vaccination/Date Given: No Travel Risk - International Travel Have you traveled outside of the country in past 3 weeks: No Have you or anyone close to you been diagnosed with or: No Do your reside in a community with a known COVID-19 case?: No - Coronavirus Screening Has patient experienced Coronavirus symptoms: No - Review of Systems Constitutional: No Fever, No Chills Eyes: No Symptoms Ears, Nose, & Throat: No Symptoms Respiratory: No Cough, No Dyspnea Cardiac: No Chest Pain, No Edema, No Syncope Abdominal/Gastrointestinal: No Abdominal Pain, No Nausea, No Vomiting, No Diarrhea Genitourinary Symptoms: No Dysuria Musculoskeletal: No Back Pain, No Neck Pain Skin: No Rash Neurological: No Dizziness, No Focal Weakness, No Sensory Changes Psychological: No Symptoms Endocrine: No Symptoms All Other Systems: Reviewed and Negative - Past Medical History Pertinent Past Medical History: Yes Neurological History: Migraines ENT History: Cataracts Cardiac History: Congestive Heart Failure, High Cholesterol, Hypertension, Other Respiratory History: Asthma, COPD, Sleep Apnea Endocrine Medical History: Diabetes Type II, Hypothyroidism, Other Musculoskeletal History: Arthritis, Fibromyalgia GI Medical History: Esophageal Disorder History: Renal Disease Psycho-Social History: Anxiety, Bipolar, Depression Female Reproductive Disorders: No Pertinent History Other Medical History: 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 lt shoulder, spinal block - Social History Smoking Status: Current every day smoker How long have you smoked: 43 yrs Exposure to second hand smoke: Yes Drug Use: none Patient Lives Alone: No - Physical Exam General Appearance: no apparent distress Eye Exam: PERRL/EOMI Ears, Nose, Throat Exam: normal ENT inspection, moist mucous membranes Neck Exam: normal inspection, supple, full range of motion, No meningismus Respiratory Exam: normal breath sounds, lungs clear Cardiovascular Exam: regular rate/rhythm, normal heart sounds Gastrointestinal/Abdominal Exam: soft, No tenderness, No distention Back Exam: normal inspection, 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 of motion 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, 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, cooperative glass carrier Exam: normal speech, PERRL, No facial droop Coordination/Gait Exam: normal cerebellar function Motor/Sensory Exam: no motor deficit, no sensory deficit Skin Exam: normal color, warm, dry, No rash - Course Nursing assessment & vital signs reviewed: Yes Ordered Tests: Medication Summary Discontinued Medications Generic Name Dose Route Start Last Admin Trade Name Freq PRN Reason Stop Dose Admin Hydromorphone HCl 2 mg 06/06/19 10:29 Hydromorphone 1 Mg/Ml Ampule IM 06/06/19 10:30 STAT ONE Ondansetron HCl 4 mg 06/06/19 10:29 Zofran 4 Mg/2 Ml Vial IM 06/06/19 10:30 STAT ONE - Progress Progress: improved Air Movement: good Blood Culture(s) Obtained: No Antibiotics given: No Counseled pt/family regarding: diagnosis, need for follow-up - Departure Departure Disposition: Home Clinical Impression: Headache Qualifiers: Headache type: paroxysmal hemicrania Headache chronicity pattern: chronic headache Intractability: intractable Qualified Code(s): 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 The patient was counseled regarding Diagnosis,Lab results, Imaging studies, need for follow up and when to return to the Emergency Room. Prescriptions given: Discharge Note I have spoken with the patient and/or caregivers. I have explained the patient' s condition, diagnosis and treatment plan based on the information available to me at this time. I have answered the patient's and/or caregiver's questions and addressed any concerns. The patient and/or caregivers have as good understanding of the patient's diagnosis, condition and treatment plan as can be expected at this point. The vital signs have been stable. The patient's condition is stable and appropriate for discharge from the emergency department. The patient will pursue further outpatient evaluation with the primary care physician or other designated or consulting physician as outlined in the discharge instructions. The patient and/or caregivers are agreeable to this plan of care and follow-up instructions have been explained in detail. The patient and/or caregivers have received these instruction. The patient/and or caregivers are aware that any significant change in condition or worsening of symptoms should prompt an immediate return to this or the closest emergency department or call 911. JOSE E WRIGHT was seen on 06/06/19 n the Emergency Room. At that time you were treated for an emergent condition, during your visit Laboratory, Radiology and/or other procedures may have been ordered. It is very important that you follow-up with your Primary Care Physician VAIBHAV CHURCHILL within the next 24- 48 hours to review your Emergency Room visit and the final results of testing that was ordered. Some test results such as Urine Cultures, Blood Cultures, and other cultures if ordered will not be finalized for 24-48 hours. If you do not have a Primary Care Provider please call the medical records department at [phone] ext [phone] to obtain a copy of your results or you may sign into our patient portal to obtain these results by visiting us @ [email or web address] and completing the following steps: 1. Click on the Patient Portal link 2. Click the Patient Self Enrollment Link to complete the enrollment form and entering your 3. Once the enrollment form is completed you will receive an email with a temporary ID and password at the email address you provided. 4. Next choose a user name and password. Your user name must be at least 4 characters long and your password must be at least 4 characters long. 5. Choose a security question from the list and provide your answer to the question. If you already have signed into the Health Portal you may access your Health Care Information 07/10 by the following steps: 1. Login to our website @ [email or web address] 2. Enter your original user name and password. FAQS The [facility] Health Portal is an online tool that contains your Lab Results, Radiology Reports, Visit History, Discharge Instructions and Health Summary Lab and Radiology Results will not be available for 72 hours on the portal. The Portal is a secure site, passwords are encryted and URLs are re-written so they cannot be copied and pasted. You and authorized family members are the only ones who can access your Portal. Also there is a timeout feature that protects your information if you leave the Portal page open. If you have technical difficulty please use the Contact Us link on the page this will allow you to submit any questions you have regarding the Portal or you may contact the Medical Record Department at [phone] ext [phone].
[2019-06-06] MEDS ORDERED: Zofran 4 MG/2 ML VIAL ONE (10:45)
[2019-06-06] MEDS ORDERED: Hydromorphone 1 mg/ml Ampule ONE (10:45)
[2019-06-06 11:03] VITALS: BP 129/67; PULSE 72; O2SAT 99
== END 2019-06-06 11:04 | disposition home or self-care (01) ==
LOC: ED 10:07
DX: R51 Headache (principal); I50.9 Heart failure, unspecified; I10 Essential (primary) hypertension; J44.9 Chronic obstructive pulmonary disease, unspecified; G47.30 Sleep apnea, unspecified; E03.9 Hypothyroidism, unspecified; E11.9 Type 2 diabetes mellitus without complications; J45.909 Unspecified asthma, uncomplicated; F41.9 Anxiety disorder, unspecified; F31.9 Bipolar disorder, unspecified; Z72.0 Tobacco use
CPT/HCPCS: 96372; 99284; J1170; J2405

== ENCOUNTER 2019-07-18 06:48 | Emergency (ER) | payer MEDICARE ==
[2019-07-18 07:48] LABS: ALBUMIN 4.2 g/dL (3.5-5.0); ANION GAP 17.6 MEQ/L (5-15); BILIRUBIN,TOTAL 0.5 mg/dL (0.2-1.3); Calcium 9.5 mg/dL (8.4-10.2); Creatinine 1 1.88 mg/dL (0.52-1.04); Potassium 4.1 mmol/L (3.5-5.1); Total Protein 8.4 g/dL (6.3-8.2)
--- NOTE | 2019-07-18 07:55 | ERPHSYRPT ---
- History of Present Illness Time Seen by Provider: 07/18/19 07:48 Source: patient Exam Limitations: other (Poor Historian) Patient Subjective Stated Complaint: pt complains of chronic leg pains that haven worsen tonight, pt states that she also had cramping in hands that has now resolved Triage Nursing Assessment: pt came into the er, pt is axo x4, c/o leg pain, 7/ 10 pain to BLE, weak pedial pulses, cap refil 4 Physician History: 54 yo wf w cc of generalized muscle cramping x 3 days. Pt denies trauma/fever/ vomiting/diarrhea/new meds/chest pain/dyspnea/cough/melena/hematochezia. She has multiple medical problems/multiple medical allergies/disabled/chronic pain issues. Timing/Duration: day(s) (4 days) Severity: moderate Modifying Factors: Improves With: movement Associated Symptoms: nausea, No vomiting, No abdominal pain, No shortness of breath, No heartburn, No diaphoresis, No cough, No chills, No chest pain, No fever, No headaches, No loss of appetite, No malaise, No rash, No syncope, No seizure, No weakness Allergies/Adverse Reactions: adhesive Allergy (Intermediate, Verified 07/18/19 07:40) Rash ciprofloxacin HCl [From Cipro] Allergy (Intermediate, Verified 07/18/19 07:40) Rash gatifloxacin [From Tequin] Allergy (Intermediate, Verified 07/18/19 07:40) Rash levofloxacin [From Levaquin] Allergy (Intermediate, Verified 07/18/19 07:40) Rash aspirin Allergy (Verified 07/18/19 07:40) bupropion HCl [From Wellbutrin] Allergy (Verified 07/18/19 07:40) carisoprodol [From Soma] Allergy (Verified 07/18/19 07:40) cefaclor [From Ceclor] Allergy (Verified 07/18/19 07:40) ceftibuten dihydrate [From Cedax] Allergy (Verified 07/18/19 07:40) cephalexin monohydrate [From Keflex] Allergy (Verified 07/18/19 07:40) clarithromycin [From Biaxin] Allergy (Verified 07/18/19 07:40) clotrimazole [From Lotrimin] Allergy (Verified 07/18/19 07:40) codeine [Codeine] Allergy (Verified 07/18/19 07:40) erythromycin base [Erythromycin Base] Allergy (Verified 07/18/19 07:40) ketorolac tromethamine [From Toradol] Allergy (Verified 07/18/19 07:40) loracarbef [From Lorabid] Allergy (Verified 07/18/19 07:40) meperidine HCl [From Demerol] Allergy (Verified 07/18/19 07:40) morphine Allergy (Verified 07/18/19 07:40) Norgestimate-Ethi *RETIRED-07/08/12 [From Ortho Tri-Cyclen (21)] Allergy ( Verified 07/18/19 07:40) Penicillins Allergy (Verified 07/18/19 07:40) prochlorperazine edisylate [From Compazine] Allergy (Verified 07/18/19 07:40) promethazine [From Phenergan] Allergy (Verified 07/18/19 07:40) Hives promethazine HCl [From Phenergan] Allergy (Verified 07/18/19 07:40) Sulfa (Sulfonamide Antibiotics) [Sulfa(Sulfonamide Antibiotics)] Allergy ( Verified 07/18/19 07:40) sumatriptan [From Imitrex] Allergy (Verified 07/18/19 07:40) melon Adverse Reaction (Verified 07/18/19 07:40) Home Medications: Budesonide/Formoterol Fumarate [Symbicort 160-4.5 Mcg Inhaler] 2 puff IH BID [History] Bumetanide [Bumex] 4 mg PO DAILY 10/10/15 [History] Cholecalciferol (Vitamin D3) [Vitamin D3] 2,000 unit PO UD 10/10/15 [History] Fenofibrate 160 mg PO DAILY 10/10/15 [History] Montelukast Sodium 25 mg PO DAILY 10/10/15 [History] Nitroglycerin 0.4 mg Tablet [Nitrostat 0.4 MG Tablet] 0.4 mg SL Q5MIN PRN MR X 3 PRN 10/10/15 [History] PANTOPRAZOLE 40 mg Tablet [Protonix 40MG Tablet] 40 mg PO DAILY 10/10/15 [ History] Polyethylene Glycol 3350 17 gm [Miralax Powder 17GM PACKET] 17 gm PO UD PRN 10/10/15 [History] Potassium Chloride 20 Meq [Klor-Con 20 MEQ] 20 meq PO DAILY 10/10/15 [History] Divalproex Sodium [Divalproex Sodium ER] 500 mg PO BID 03/06/16 [History] Albuterol 2.5 mg/3 ml Neb [Proventil 2.5 mg/3 ml Neb] 1 ea IH QID PRN PRN 07/08/18 [History] Albuterol Sulfate [Proair Hfa] 2 puffs IH QID 07/08/18 [History] Rosuvastatin Calcium [Crestor] 40 mg PO DAILY 07/08/18 [History] Levothyroxine Sodium 112 Mcg [Synthroid 112 Mcg] 112 mcg PO DAILY 07/28/18 [History] Insulin Regular, Human [Humulin R U-500 Kwikpen] 0 units SQ TID 10/04/18 [ History] Apixaban [Eliquis] 2.5 mg PO BID 07/18/19 [History] Famotidine [Pepcid] 40 mg PO BID PRN 07/18/19 [History] Ferrous Sulfate 325 mg PO DAILY 07/18/19 [History] Fluticasone Propionate [Flonase NASAL] 2 sprays .ROUTE BID 07/18/19 [ History] Zolpidem Tartrate 10 mg [Ambien 10 MG] 10 mg PO HS PRN PRN 07/18/19 [History ] Hx Tetanus, Diphtheria Vaccination/Date Given: Yes Hx Influenza Vaccination/Date Given: No Hx Pneumococcal Vaccination/Date Given: No Travel Risk - International Travel Have you traveled outside of the country in past 3 weeks: No Have you or anyone close to you been diagnosed with or: No Do your reside in a community with a known COVID-19 case?: Yes If Yes where:: [place] - Coronavirus Screening Has patient experienced Coronavirus symptoms: No - Review of Systems Constitutional: No Symptoms Eyes: No Symptoms Ears, Nose, & Throat: No Symptoms Respiratory: No Symptoms Cardiac: No Symptoms Abdominal/Gastrointestinal: No Symptoms Genitourinary Symptoms: No Symptoms Musculoskeletal: No Symptoms Skin: No Symptoms Neurological: No Symptoms Psychological: No Symptoms Endocrine: No Symptoms Hematologic/Lymphatic: No Symptoms Immunological/Allergic: No Symptoms - Past Medical History Pertinent Past Medical History: Yes Neurological History: Migraines, Peripheral Neuropathy ENT History: Cataracts Cardiac History: Arrhythmia, Congestive Heart Failure, High Cholesterol, Hypertension, Other Respiratory History: Asthma, COPD, Sleep Apnea Endocrine Medical History: Diabetes Type II, Hypothyroidism, Other Musculoskeletal History: Arthritis, Fibromyalgia GI Medical History: Esophageal Disorder History: Renal Disease Psycho-Social History: Anxiety, Bipolar, Depression Female Reproductive Disorders: No Pertinent History Other Medical History: 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 lt shoulder, spinal block - Social History Smoking Status: Current every day smoker How long have you smoked: 43 yrs Exposure to second hand smoke: Yes Drug Use: none Patient Lives Alone: No Significant Family History: no pertinent family hx - Female History Hx Now: No - Nursing Vital Signs Nursing Vital Signs: Initial Vital Signs Temperature 97.8 F 07/18/19 07:24 Pulse Rate 73 07/18/19 07:24 Blood Pressure 118/66 07/18/19 07:24 O2 Sat by Pulse Oximetry 96 07/18/19 07:24 Pain Scale Pain Intensity [Left Posterior 7 Calf] Pain Intensity [Right 7 Posterior Calf] Pain Intensity 7 - Physical Exam General Appearance: no apparent distress Eye Exam: PERRL/EOMI, eyes nml inspection, No scleral icterus, No pale conjunctivae, No photophobia Ears, Nose, Throat Exam: normal ENT inspection, TMs normal, pharynx normal, moist mucous membranes Neck Exam: normal inspection, non-tender, supple, full range of motion, No meningismus, No mass, No Brudzinski, No Kernig's, No carotid bruit, No JVD, No limited range of motion, No lymphadenopathy, No subcutaneous emphysema, No midline tenderness, No thyromegaly Respiratory Exam: normal breath sounds, lungs clear, airway intact, No chest tenderness, No respiratory distress, No diminished breath sounds, No accessory muscle use, No prolonged expirations, No crackles/rales, No rhonchi, No wheezing Cardiovascular Exam: regular rate/rhythm, other (1/6 RAHUL) Gastrointestinal/Abdomen Exam: soft, normal bowel sounds, other (Morbidly obese) , No tenderness, No distention, No mass, No guarding, No ecchymosis, No pulsatile mass, No rebound, No hepatomegaly Pelvic Exam: not done Rectal Exam: deferred Back Exam: normal inspection Extremity Exam: normal inspection, 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 of motion, pelvis stable, No amputations, No marquez, No contusions, No calf tenderness, No deformities, No lacerations, No penetrations, No parasthesia, No paralysis, No jamil's sign, No inflammation, No joint swelling, No limited range of motion, No pedal edema, No swelling, No tenderness Neurologic Exam: alert, 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, cooperative, accountant auditor II-XII nml as tested, normal mood/affect, nml cerebellar function, nml station & gait, sensation nml, motor deficits, sensory deficit, No disoriented, No confusion, No agitation, No uncooperative, No intoxicated appearance, No depressed mood/affect, No motor weakness, No facial droop, No slurred speech, No aphasia, No dysarthria, No abnormal gait, No abnormal cerebellar tests, No abnormal accountant auditor II-XII, No EOM palsy Skin Exam: normal color, warm, dry, No rash, No petechiae, No jaundice, No abrasion, No cyanosis, No diaphoresis, No decubitus, No embolic lesions, No ecchymosis, No jaundice, No laceration, No mottled, No pale Lymphatic Exam: No adenopathy SpO2 Interpretation: normal SpO2: 96 O2 Delivery: Room Air - Course Nursing assessment & vital signs reviewed: Yes Ordered Tests: Active Orders 24 hr Category Date Time Status Isolation, Initiate & Maintain Q4H Care 07/18/19 07:37 Active CMP Stat Lab 07/18/19 07:25 Completed Medication Summary Discontinued Medications Generic Name Dose Route Start Last Admin Trade Name Freq PRN Reason Stop Dose Admin Orphenadrine Citrate 60 mg 07/18/19 08:04 Norflex 60 Mg/2 Ml IM 07/18/19 08:05 STAT ONE Lab/Rad Data: Laboratory Result Diagrams 07/18/19 07:25 Laboratory Results 07/18/19 Range/Units 07:25 Sodium 126 L (137-145) mmol/L Potassium 4.1 (3.5-5.1) mmol/L Chloride 88 L (98-107) mmol/L Carbon Dioxide 25 (22-30) mmol/L Anion Gap 17.6 H (5-15) MEQ/L BUN 43 H (7-17) mg/dL Creatinine 1.88 H (0.52-1.04) mg/dL Estimated GFR 30.0 ML/MIN Glucose 349 H (74-106) mg/dL Calcium 9.5 (8.4-10.2) mg/dL Total Bilirubin 0.50 (0.2-1.3) mg/dL AST 19 (14-36) U/L ALT 17 (0-35) U/L Alkaline Phosphatase 129 H (38-126) U/L Serum Total Protein 8.4 H (6.3-8.2) g/dL Albumin 4.2 (3.5-5.0) g/dL - Progress Progress Note: 07/18/19 08:07 60mg IM Norflex for myalgias. Pt has pre-renal azotemia due to Bumex, and glucose is elevated due to poor control. Pt to be discharged w follow up w PCP early next week. - Departure Departure Disposition: Home Clinical Impression: Chronic pain syndrome, Renal insufficiency, Uncontrolled diabetes mellitus Condition: Stable Critical Care Time: No Referrals: VAIBHAV CHURCHILL MD [Primary Care Provider] -
[2019-07-18] MEDS ORDERED: Norflex 60 MG/2 ML IM ONE (08:04)
[2019-07-18] MEDS ORDERED: Norflex 60 MG/2 ML ONE (08:08)
[2019-07-18 08:25] VITALS: BP 131/68
[2019-07-18 08:41] VITALS: PULSE 70; O2SAT 97
== END 2019-07-18 08:41 | disposition home or self-care (01) ==
LOC: ED 06:48
DX: G89.4 Chronic pain syndrome (principal); N28.9 Disorder of kidney and ureter, unspecified; E11.65 Type 2 diabetes mellitus with hyperglycemia
CPT/HCPCS: 36415; 80053; 96372; 99284; J2360

== ENCOUNTER 2019-08-15 08:58 | Emergency (ER) | payer MEDICARE ==
[2019-08-15] MEDS ORDERED: Zofran 4 MG/2 ML VIAL IV ONE (09:20)
[2019-08-15] MEDS ORDERED: Sodium Chloride 0.9% 1000 ML 1,000 ML IV STA (09:20)
[2019-08-15] MEDS ORDERED: STADOL 2 MG IV ONE (09:21)
[2019-08-15] MEDS ORDERED: Merrem 1 GM 1 G in Sodium Chloride 100ML MINI-BAG PLUS 100 ML IV ONE (09:22)
--- NOTE | 2019-08-15 09:28 | ERPHSYRPT ---
- History of Present Illness Time Seen by Provider: 08/15/19:20 Source: patient Exam Limitations: no limitations Patient Subjective Stated Complaint: pt to ER with complaints of abscess on her L buttocks x 1 week. pt states its getting harder to sit and sleep or have a BM. Triage Nursing Assessment: pt to room via wheelchair. pt A&Ox4. pt appears to be in no distress. Physician History: 54 years old obese female with poorly controlled diabetes mellitus presented in the ER with 1 week history of left buttock swelling/boil which started initially as 1 and later on another one popped up associated with sharp shooting moderate to severe intensity constant pain which is aggravated with lying on the back and no significant relieving factors. She denies any fever or chills. Denies any discharge. Patient reports having boils/abscesses in the past in the same area. Timing/Duration: week(s) (1) Quality: painful Severity: severe Location: genitalia, perirectal Possible Causes: no cause identified Associated Symptoms: No fever Allergies/Adverse Reactions: adhesive Allergy (Intermediate, Verified 08/15/19 09:14) Rash ciprofloxacin HCl [From Cipro] Allergy (Intermediate, Verified 08/15/19 09:14) Rash gatifloxacin [From Tequin] Allergy (Intermediate, Verified 08/15/19 09:14) Rash levofloxacin [From Levaquin] Allergy (Intermediate, Verified 08/15/19 09:14) Rash aspirin Allergy (Verified 08/15/19 09:14) bupropion HCl [From Wellbutrin] Allergy (Verified 08/15/19 09:14) carisoprodol [From Soma] Allergy (Verified 08/15/19 09:14) cefaclor [From Ceclor] Allergy (Verified 08/15/19 09:14) ceftibuten dihydrate [From Cedax] Allergy (Verified 08/15/19 09:14) cephalexin monohydrate [From Keflex] Allergy (Verified 08/15/19 09:14) clarithromycin [From Biaxin] Allergy (Verified 08/15/19 09:14) clotrimazole [From Lotrimin] Allergy (Verified 08/15/19 09:14) codeine [Codeine] Allergy (Verified 08/15/19 09:14) erythromycin base [Erythromycin Base] Allergy (Verified 08/15/19 09:14) ketorolac tromethamine [From Toradol] Allergy (Verified 08/15/19 09:14) loracarbef [From Lorabid] Allergy (Verified 08/15/19 09:14) meperidine HCl [From Demerol] Allergy (Verified 08/15/19 09:14) morphine Allergy (Verified 08/15/19 09:14) Norgestimate-Ethi *RETIRED-07/08/12 [From Ortho Tri-Cyclen (21)] Allergy ( Verified 08/15/19 09:14) Penicillins Allergy (Verified 08/15/19 09:14) prochlorperazine edisylate [From Compazine] Allergy (Verified 08/15/19 09:14) promethazine [From Phenergan] Allergy (Verified 08/15/19 09:14) Hives promethazine HCl [From Phenergan] Allergy (Verified 08/15/19 09:14) Sulfa (Sulfonamide Antibiotics) [Sulfa(Sulfonamide Antibiotics)] Allergy ( Verified 08/15/19 09:14) sumatriptan [From Imitrex] Allergy (Verified 08/15/19 09:14) melon Adverse Reaction (Verified 08/15/19 09:14) Home Medications: Budesonide/Formoterol Fumarate [Symbicort 160-4.5 Mcg Inhaler] 2 puff IH BID [History] Bumetanide [Bumex] 4 mg PO DAILY 10/10/15 [History] Cholecalciferol (Vitamin D3) [Vitamin D3] 2,000 unit PO UD 10/10/15 [History] Fenofibrate 160 mg PO DAILY 10/10/15 [History] Montelukast Sodium 25 mg PO DAILY 10/10/15 [History] Nitroglycerin 0.4 mg Tablet [Nitrostat 0.4 MG Tablet] 0.4 mg SL Q5MIN PRN MR X 3 PRN 10/10/15 [History] PANTOPRAZOLE 40 mg Tablet [Protonix 40MG Tablet] 40 mg PO DAILY 10/10/15 [ History] Polyethylene Glycol 3350 17 gm [Miralax Powder 17GM PACKET] 17 gm PO UD PRN 10/10/15 [History] Potassium Chloride 20 Meq [Klor-Con 20 MEQ] 20 meq PO DAILY 10/10/15 [History] Divalproex Sodium [Divalproex Sodium ER] 500 mg PO BID 03/06/16 [History] Albuterol 2.5 mg/3 ml Neb [Proventil 2.5 mg/3 ml Neb] 1 ea IH QID PRN PRN 07/08/18 [History] Albuterol Sulfate [Proair Hfa] 2 puffs IH QID 07/08/18 [History] Rosuvastatin Calcium [Crestor] 40 mg PO DAILY 07/08/18 [History] Levothyroxine Sodium 112 Mcg [Synthroid 112 Mcg] 112 mcg PO DAILY 07/28/18 [History] Insulin Regular, Human [Humulin R U-500 Kwikpen] 0 units SQ TID 10/04/18 [ History] Apixaban [Eliquis] 2.5 mg PO BID 07/18/19 [History] Famotidine [Pepcid] 40 mg PO BID PRN 07/18/19 [History] Ferrous Sulfate 325 mg PO DAILY 07/18/19 [History] Fluticasone Propionate [Flonase NASAL] 2 sprays .ROUTE BID 07/18/19 [ History] Zolpidem Tartrate 10 mg [Ambien 10 MG] 10 mg PO HS PRN PRN 07/18/19 [History ] Hx Tetanus, Diphtheria Vaccination/Date Given: Yes Hx Influenza Vaccination/Date Given: No Hx Pneumococcal Vaccination/Date Given: No Immunizations Up to Date: Yes Travel Risk - International Travel Have you traveled outside of the country in past 3 weeks: No Have you or anyone close to you been diagnosed with or: No Do your reside in a community with a known COVID-19 case?: Yes If Yes where:: [place] - Coronavirus Screening Has patient experienced Coronavirus symptoms: No - Review of Systems Constitutional: No Symptoms Eyes: No Symptoms Ears, Nose, & Throat: No Symptoms Respiratory: No Symptoms Cardiac: No Symptoms Abdominal/Gastrointestinal: No Symptoms Genitourinary Symptoms: Vaginal Itching Skin: Cellulitis, Induration, Skin Lesions Neurological: No Symptoms Psychological: No Symptoms Endocrine: No Symptoms Hematologic/Lymphatic: No Symptoms Immunological/Allergic: No Symptoms - Past Medical History Pertinent Past Medical History: Yes Neurological History: Migraines, Peripheral Neuropathy ENT History: Cataracts Cardiac History: Arrhythmia, Congestive Heart Failure, High Cholesterol, Hypertension, Other Respiratory History: Asthma, COPD, Sleep Apnea Endocrine Medical History: Diabetes Type II, Hypothyroidism, Other Musculoskeletal History: Arthritis, Fibromyalgia GI Medical History: Esophageal Disorder History: Renal Disease Psycho-Social History: Anxiety, Bipolar, Depression Female Reproductive Disorders: No Pertinent History Other Medical History: 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 lt shoulder, spinal block - Social History Smoking Status: Current every day smoker How long have you smoked: 43 yrs Exposure to second hand smoke: Yes Drug Use: none Patient Lives Alone: No Significant Family History: no pertinent family hx - Female History Hx Now: No - Nursing Vital Signs Nursing Vital Signs: Initial Vital Signs Temperature 98.7 F 08/15/19 09:05 Pulse Rate 95 H 08/15/19 09:05 Respiratory Rate 18 08/15/19 09:05 Blood Pressure 172/73 08/15/19 09:05 O2 Sat by Pulse Oximetry 98 08/15/19 09:05 Pain Scale Pain Intensity 4 - Physical Exam General Appearance: no apparent distress, alert, anxiety Eye Exam: eyes nml inspection Ears, Nose, Throat Exam: normal ENT inspection Neck Exam: normal inspection Respiratory Exam: normal breath sounds, lungs clear Cardiovascular Exam: regular rate/rhythm, normal heart sounds Gastrointestinal/Abdomen Exam: soft, normal bowel sounds, No tenderness Rectal Exam: other (Left buttock inner aspect swelling, redness/erythema/ induration with an area of blackening. Not fluctuant. Involves the perineum and left labia majora area of redness erythema and tenderness. Increased temperature. This redness extends towards the anus. No discharge) Back Exam: normal inspection Extremity Exam: normal inspection Neurologic Exam: alert, 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 Skin Exam: normal color SpO2 Interpretation: normal SpO2: 98 O2 Delivery: Room Air - Course Nursing assessment & vital signs reviewed: Yes Ordered Tests: Active Orders 24 hr Category Date Time Status IV Insertion STAT Care 08/15/19 09:20 Active PELVIS WITHOUT CONTRAST [CT] Stat Exams 08/15/19 10:45 Taken BLOOD CULTURE Stat Lab 08/15/19 09:45 Received CBC W DIFF Stat Lab 08/15/19 09:45 Completed CMP Stat Lab 08/15/19 09:45 Completed Lactic Acid Stat Lab 08/15/19 09:45 Completed Manual Differential NC Stat Lab 08/15/19 09:45 Completed Medication Summary Discontinued Medications Generic Name Dose Route Start Last Admin Trade Name Freq PRN Reason Stop Dose Admin Butorphanol Tartrate 1 mg 08/15/19 09:21 08/15/19 09:50 Stadol 2 Mg IV 08/15/19 09:22 1 mg STAT ONE Administration Butorphanol Tartrate Confirm 08/15/19 09:37 Stadol 2 Mg Administered 08/15/19 09:38 Dose 2 mg .ROUTE .STK-MED ONE Meropenem 1 g/ Sodium Chloride 100 mls @ 200 mls/hr 08/15/19 09:22 08/15/19 09:53 IV 08/15/19 09:51 200 mls/hr STAT ONE Administration Sodium Chloride 1,000 mls @ 999 mls/hr 08/15/19 09:20 08/15/19 09:48 Sodium Chloride 0.9% 1000 Ml IV 08/15/19 10:20 999 mls/hr .Q1H1M STA Administration Sodium Chloride Confirm 08/15/19 09:38 Sodium Chloride 0.9% 1000 Ml Administered 08/15/19 09:39 Dose 1,000 mls @ ud .ROUTE .STK-MED ONE Sodium Chloride Confirm 08/15/19 09:44 Sodium Chloride 0.9% 100 Ml Ivpb Administered 08/15/19 09:45 Dose 100 mls @ ud IV .STK-MED ONE Vancomycin HCl 2 gm in 400 mls @ 200 mls/hr 08/15/19 11:15 08/15/19 11:21 Vancomycin 2 Gram/400 Ml Bag IV 08/15/19 13:14 200 ml/hr NOW ONE 200 mls/hr Administration Vancomycin HCl Confirm 08/15/19 09:38 Vancomycin 1gm/ Ns 250ml Administered 08/15/19 09:39 Dose 250 mls @ ud IV .STK-MED ONE Insulin Human Regular 15 unit 08/15/19 12:35 08/15/19 12:38 Humulin R IV 08/15/19 12:36 Not Given STAT ONE Meropenem Confirm 08/15/19 09:37 Merrem 1 Gm Administered 08/15/19 09:38 Dose 1 g IV .STK-MED ONE Ondansetron HCl 4 mg 08/15/19 09:20 08/15/19 09:48 Zofran 4 Mg/2 Ml Vial IV 08/15/19 09:21 4 mg STAT ONE Administration Ondansetron HCl Confirm 08/15/19 09:37 Zofran 4 Mg/2 Ml Vial Administered 08/15/19 09:38 Dose 4 mg .ROUTE .STK-MED ONE Lab/Rad Data: Laboratory Result Diagrams 08/15/19 09:45 08/15/19 09:45 Laboratory Results 08/15/19 08/15/19 08/15/19 Range/Units 09:45 09:45 09:45 WBC 10.8 H (4.0-10.5) K/mm3 RBC 3.93 L (4.1-5.4) M/mm3 Hgb 11.7 L (12.0-16.0) gm/dl Hct 35.3 (35-47) % MCV 89.8 (78-100) fl MCH 29.8 (26-32) pg MCHC 33.1 (32-36) g/dl RDW 12.7 (11.5-14.0) % Plt Count 150 (150-450) K/mm3 MPV 12.7 H (7.5-11.0) fl Segmented Neutrophils 79 H (36.0-66.0) % Band Neutrophils 4 H (0.0-2.0) % Lymphocytes (Manual) 14 L (24-44) % Monocytes (Manual) 3 (0.0-12.0) % Toxic Granulation 1+ Platelet Estimate NORMAL (NORMAL) RBC Morphology NORMAL Sodium 127 L (137-145) mmol/L Potassium 4.9 (3.5-5.1) mmol/L Chloride 95 L (98-107) mmol/L Carbon Dioxide 21 L (22-30) mmol/L Anion Gap 16.7 H (5-15) MEQ/L BUN 21 H (7-17) mg/dL Creatinine 1.33 H (0.52-1.04) mg/dL Estimated GFR 44.5 ML/MIN Glucose 575 H* (74-106) mg/dL Lactic Acid 1.6 (0.4-2.0) Calcium 9.1 (8.4-10.2) mg/dL Total Bilirubin 0.70 (0.2-1.3) mg/dL AST 15 (14-36) U/L ALT 14 (0-35) U/L Alkaline Phosphatase 116 (38-126) U/L Serum Total Protein 7.3 (6.3-8.2) g/dL Albumin 3.6 (3.5-5.0) g/dL - Progress Progress: unchanged Progress Note: 08/15/19 54 years old is evaluated for buttock/perianal swelling with possible abscess. She is given IV fluid and pain medication along with broad-spectrum antibiotics. Work-up showed normal white count, elevated blood sugar but not in DKA. I have obtained Noncon CT pelvis which showed perianal inflammation/ abscess findings. Recommended surgical consultation for under anesthesia incision and drainage but patient does not want to have anything done here and wants to leave. When asked why patient reported she cannot stay in the hospital it gives her bad anxiety. I went back and forth to convince her that her condition could go worse leading to necrosis/sepsis in the presence of poorly controlled diabetes which could be detrimental. I have recommended insulin but patient does not want insulin for her elevated blood sugar and says that she would take once she is at home. Patient says she does not want anyone to huey it. I have tried multiple times with nursing staff to convince her to stay but she still wants to go. Patient says she would go to [place] if it gets worse. I have offered her transfer to [place] from here but she does not want to go there now. She left AGAINST MEDICAL ADVICE. Counseled pt/family regarding: lab results, diagnosis, rad results - Departure Departure Disposition: AMA Clinical Impression: Perianal abscess Uncontrolled diabetes mellitus Qualifiers: Diabetes mellitus type: type 2 Glycemic state: with hyperglycemia Qualified Code(s): E11.65 - Type 2 diabetes mellitus with hyperglycemia Condition: Fair Critical Care Time: No Referrals: VAIBHAV CHURCHILL MD [Primary Care Provider] - Additional Instructions: Follow-up with your primary care for reevaluation in the morning. Sitz bath, strict sugar control with insulin and diabetic diet. Return to ER if you change your mind regarding admission with possible surgical intervention and antibiotics to avoid being septic
[2019-08-15] MEDS ORDERED: Vancomycin 1GM/ Ns 250ML*** 250 ML IV SCH (09:30)
[2019-08-15] MEDS ORDERED: Zofran 4 MG/2 ML VIAL ONE (09:37)
[2019-08-15] MEDS ORDERED: STADOL 2 MG ONE (09:37)
[2019-08-15] MEDS ORDERED: Merrem 1 GM IV ONE (09:37)
[2019-08-15] MEDS ORDERED: Vancomycin 1GM/ Ns 250ML*** 250 ML IV ONE (09:38)
[2019-08-15] MEDS ORDERED: Sodium Chloride 0.9% 1000 ML 1,000 ML ONE (09:38)
[2019-08-15] MEDS ORDERED: Sodium Chloride 0.9% 100 ML IVPB 100 ML IV ONE (09:44)
[2019-08-15 10:03] LABS: Hematocrit 35.3 % (35-47); Hemoglobin 11.7 gm/dl (12.0-16.0); Mean Cell Volume 89.8 fl (78-100); Mean Corpuscular Hemoglobin 29.8 pg (26-32); Mean Corpuscular Hgb Concent. 33.1 g/dl (32-36); Mean Platelet Volume 12.7 fl (7.5-11.0); Platelet Count 150 K/mm3 (150-450); Red Blood Count 3.93 M/mm3 (4.1-5.4); Red Cell Distribution Width 12.7 % (11.5-14.0); White Blood Count 10.8 K/mm3 (4.0-10.5)
[2019-08-15 10:31] LABS: ALBUMIN 3.6 g/dL (3.5-5.0); ANION GAP 16.7 MEQ/L (5-15); BILIRUBIN,TOTAL 0.7 mg/dL (0.2-1.3); Calcium 9.1 mg/dL (8.4-10.2); Creatinine 1 1.33 mg/dL (0.52-1.04); Potassium 4.9 mmol/L (3.5-5.1); Total Protein 7.3 g/dL (6.3-8.2)
[2019-08-15 10:38] LABS: BAND 4 % (0.0-2.0); Lymphocytes 14 % (24-44); Monocyte 3 % (0.0-12.0); Neutrophils 79 % (36.0-66.0); Total Cells Counted 100
[2019-08-15 10:39] LABS: Platelet Estimate NORMAL (NORMAL); Toxic Granulation 1+
[2019-08-15] MEDS ORDERED: VANCOMYCIN 2 GRAM/400 ML BAG 2 GM/400 ML PIGGYBACK IV ONE (11:15)
[2019-08-15 12:23] VITALS: BP 143/68; PULSE 87
[2019-08-15] MEDS ORDERED: HUMULIN R IV ONE (12:35)
[2019-08-15 12:39] VITALS: O2SAT 98
--- NOTE | 2019-08-15 22:18 | XRAY ---
Indication: Left perianal abscess. Multiple contiguous axial images obtained through the pelvis only without contrast due to poor renal function. Comparison: November 18, 2018. There is now a left perianal cutaneous/subcutaneous induration with subcutaneous emphysema favoring cellulitis. Small 1.9 cm ovoid hyperattenuation possible developing abscess. A few small bilateral inguinal lymph nodes, largest on the left measuring 1.3 x 2.1 cm. Visualized bowel loops nonobstructed. Urinary bladder now moderately distended concerning for outlet obstruction versus neurogenic bladder. Stable scattered aortoiliac calcifications. Osseous structures intact. No inguinal hernias. Impression: Left perianal cellulitis with 1.9 cm abscess and reactive inguinal lymph nodes. Comment: Preliminary interpretation was made by [facility]. No critical discrepancy.
== END 2019-08-15 12:41 | disposition left against medical advice (07) ==
LOC: ED 08:58
DX: K61.0 Anal abscess (principal); E11.65 Type 2 diabetes mellitus with hyperglycemia; Z72.0 Tobacco use; I10 Essential (primary) hypertension; G62.9 Polyneuropathy, unspecified; I50.9 Heart failure, unspecified; J45.909 Unspecified asthma, uncomplicated; J44.9 Chronic obstructive pulmonary disease, unspecified; G47.30 Sleep apnea, unspecified; E03.9 Hypothyroidism, unspecified; N28.9 Disorder of kidney and ureter, unspecified; I34.1 Nonrheumatic mitral (valve) prolapse; K58.9 Irritable bowel syndrome, unspecified
CPT/HCPCS: 36000; 36415; 72192; 80053; 83605; 85025; 87040; 96365; 96367; 96374; 96375; 99284; J0595; J2405; J3370

== ENCOUNTER 2019-08-17 13:43 | Inpatient (IN) | payer MEDICARE ==
[2019-08-17 14:38] LABS: Hematocrit 36.3 % (35-47); Hemoglobin 12.1 gm/dl (12.0-16.0); Mean Cell Volume 89.4 fl (78-100); Mean Corpuscular Hemoglobin 29.8 pg (26-32); Mean Corpuscular Hgb Concent. 33.3 g/dl (32-36); Mean Platelet Volume 11.7 fl (7.5-11.0); Platelet Count 197 K/mm3 (150-450); Red Blood Count 4.06 M/mm3 (4.1-5.4); Red Cell Distribution Width 12.7 % (11.5-14.0); White Blood Count 9.4 K/mm3 (4.0-10.5)
[2019-08-17] MEDS: NORCO 5/325 MG PO PRN ×2 (14:52→20:07)
[2019-08-17 15:04] LABS: ALBUMIN 3.7 g/dL (3.5-5.0); BILIRUBIN,TOTAL 0.4 mg/dL (0.2-1.3); Calcium 9.6 mg/dL (8.4-10.2); Creatinine 1 1.03 mg/dL (0.52-1.04); Potassium 4.8 mmol/L (3.5-5.1); Risk Ratio 8.7; Total Protein 7.9 g/dL (6.3-8.2)
[2019-08-17] MEDS: Sodium Chloride 0.9% 1000 ML 1,000 ML IV SCH (15:26)
--- NOTE | 2019-08-17 15:39 | XRAY ---
Indication: Left buttock abscess. Sepsis. Comparison: August 07, 2019. PA/lateral chest again demonstrates normal heart and lungs. No new/acute findings.
[2019-08-17 15:46] LABS: Appearance SLIGHTLY CLOUDY (CLEAR); Bilirubin NEGATIVE (NEGATIVE); Blood NEGATIVE Ery/ul (0-5); Epithelial Cells RARE /HPF (FEW); Glucose 50 mg/dL (NEGATIVE); Ketones NEGATIVE (NEGATIVE); Leukocyte Esterase TRACE (NEGATIVE); Nitrite NEGATIVE (NEGATIVE); Protein,Urine Dip 100 (Negative); RBC 0-2 /HPF (0-2); Specific Gravity 1.016 (1.005-1.025); Urobilinogen 4 mg/dL (0-1)
--- NOTE | 2019-08-17 15:46 | XRAY ---
Indication: Left buttock abscess. Possible sepsis. Multiple contiguous axial images obtained through the pelvis without contrast as ordered. Comparison: August 15, 2019. Previous left perianal cellulitis with subcutaneous emphysema and small ovoid hyperattenuation appears unchanged. There is no drainable walled off fluid collection or abscess. There remains stable bilateral gluteal chunky calcifications and stable small bilateral inguinal lymph nodes. Visualized bowel loops demonstrate mild diffuse scattered colonic fecal debris and scattered aortoiliac calcifications. Visualized inferior liver, inferior kidneys, ureters, and bladder appear unremarkable for noncontrast exam. Osseous structures intact. Impression: 1. Stable left perianal cellulitis with tiny abscess. 2. Incidental fecal stasis not previously imaged.
[2019-08-17] MEDS ORDERED: PHARMACY DOSING REQUEST MC ONE ×2 (16:34→16:51)
[2019-08-17] MEDS ORDERED: PHARMACY DOSING REQUIRED: VANCOMYCIN IV ONE (16:37)
[2019-08-17] MEDS: Zofran 4 MG/2 ML VIAL IV PRN ×2 (16:53→22:53)
[2019-08-17] MEDS ORDERED: Miralax Powder 17GM PACKET PO PRN (17:17)
[2019-08-17] MEDS ORDERED: Nitrostat 0.4 MG Tablet SL PRN (17:17)
[2019-08-17] MEDS ORDERED: NORCO 5/325 MG PO PRN (17:17)
[2019-08-17] MEDS ORDERED: PROVENTIL 2.5 MG/3 ML NEB IH PRN (17:17)
[2019-08-17] MEDS ORDERED: NON-FORMULARY ITEM (Cholecalciferol (Vitamin D3) [Vitamin D3] 2,000 UNIT) PO SCH (17:30)
[2019-08-17] MEDS ORDERED: Pepcid 20 MG PO PRN (17:35)
[2019-08-17] MEDS: VANCOMYCIN 2 GRAM/400 ML BAG 2 GM/400 ML PIGGYBACK IV SCH (17:52)
[2019-08-17] MEDS: HUMALOG SQ PRN (17:53)
[2019-08-17] MEDS ORDERED: Advair Hfa 115/21 Common canister IH SCH (19:00)
[2019-08-17] MEDS: Merrem 1 GM 1 G in Sodium Chloride 100ML MINI-BAG PLUS 100 ML IV SCH (20:01)
[2019-08-17] MEDS: MAG-OX 400 PO SCH (21:37)
[2019-08-17] MEDS: ZOCOR 20MG PO SCH (21:37)
[2019-08-17] MEDS: DILAUDID 2 MG INJECTION IV PRN (21:37)
[2019-08-17] MEDS: Flonase NASAL NS SCH (21:37)
[2019-08-17] MEDS: Depakote EXTENDED RELEASE 250 MG PO SCH (21:38)
[2019-08-17] MEDS: AMITIZA PO SCH (21:39)
[2019-08-17] MEDS ORDERED: NON-FORMULARY ITEM (Budesonide/Formoterol Fumarate [Symbicort 160-4.5 Mcg Inhaler] 2 PUFF) IH SCH (22:00)
[2019-08-17] MEDS ORDERED: INSULIN GLARGINE HUM REC ANLOG 60 UNIT SQ SCH ×2 (22:00)
[2019-08-17] MEDS ORDERED: Lantus Insulin SQ SCH (22:00)
[2019-08-17] MEDS ORDERED: INSULIN REGULAR HUMAN 60 UNIT SQ SCH (22:00)
[2019-08-17] MEDS ORDERED: DIVALPROEX SODIUM 500 MG PO SCH (22:00)
[2019-08-18] MEDS: HUMALOG SQ PRN ×2 (00:26→05:51)
[2019-08-18] MEDS: DILAUDID 2 MG INJECTION IV PRN ×5 (01:37→22:09)
[2019-08-18] MEDS: NORCO 5/325 MG PO PRN ×2 (04:09→20:49)
[2019-08-18] MEDS: Merrem 1 GM 1 G in Sodium Chloride 100ML MINI-BAG PLUS 100 ML IV SCH ×3 (05:12→20:59)
[2019-08-18] MEDS: Zofran 4 MG/2 ML VIAL IV PRN ×3 (05:51→22:16)
[2019-08-18] MEDS: VANCOMYCIN 2 GRAM/400 ML BAG 2 GM/400 ML PIGGYBACK IV SCH ×2 (05:51→17:39)
[2019-08-18] MEDS ORDERED: HUMULIN R SQ SCH (07:30)
--- NOTE | 2019-08-18 08:31 | CONS ---
CONSULT DATE: 08/17/2019 HISTORY: I was just notified of this patient. Apparently she was in her physician's office earlier today. She has diabetes, obesity, abscess perirectal-perineal area over the past week and had some spontaneous drainage and failed to improve. Instead of going to the hospital over the weekend she went to her doctor's office and was sent over. We were not notified of the consult until now. The patient is not NPO so cannot have surgery at this time. Her white count is 9.4, lipase around 2. Liver function tests were okay. PAST MEDICAL HISTORY: Diabetes, obesity. PAST SURGICAL HISTORY: No prior surgery in this area. MEDICATIONS: As listed per MAR. ALLERGIES: COMPAZINE. PHENERGAN. WELLBUTRIN. DEMEROL. TORADOL. CIPRO. KEFLEX. SUDAX. SULFA. MORPHINE. ASPIRIN. CODEINE. CECLOR. SOMA. CLARITHROMYCIN. LOTRIMIN. ERYTHROMYCIN. ORTHO TRI-CYCLEN. BIAXIN. LORABID. LEVAQUIN. SUMATRIPTAN. MELON. FAMILY HISTORY: Noncontributory in regards to this problem. SOCIAL HISTORY: No smoking or alcohol abuse. REVIEW OF SYSTEMS: Fourteen systems reviewed. She has history of diabetes. No chest pain currently. Pertinent for the pain, swelling, spontaneous drainage. She has a black chronic necrosis area with some spontaneous drainage. Other systems negative or noncontributory as above and per preadmission questionnaire. Otherwise as listed per history and physical. Reviewed history and physical. PHYSICAL EXAMINATION: GENERAL: A chronically ill female in no acute distress. HEENT: Sclera nonicteric. NECK: No JVD. CHEST: Equal excursion, nonlabored breathing. PSYCH: Appropriate mood and affect. CVS: Regular rhythm and pulse. ABDOMEN: Obese, soft, nondistended. : In the perineal area, she has got some opening where she has got some spontaneous drainage perirectal abscess, area of necrosis with spontaneous drainage that has been going on for some time. She is medically stable now. EXTREMITIES: No cyanosis. NEURO: Alert, moving extremities grossly symmetrically. IMPRESSION: Long standing perirectal perineal infection and abscess. She has some spontaneous drainage this has been going on over a week. Her white count is over 9. She is not toxic at this point. As she is not NPO at this time, would proceed today but the patient has been taking p.o. at this time and she is not NPO. I feel the risk of aspiration is more than any benefit of doing the procedure sooner in this patient that has had this going on for a week. I do however feel that she would benefit early tomorrow proceeding with excisional debridement and drainage, debridement of any devitalized tissue in the perirectal-perineal area. She understands she likely will have an open wound requiring daily packing changes and require dressing changes, long-standing wound care and there is possibility of ongoing infection or progression that may require other procedures. General risk of anesthesia, deep venous thrombosis, pulmonary embolism, pneumonia but not limited to. Again, as she is not NPO cannot do not do the surgery at this time. On my way back to do emergent cases at another facility, will see if the OR has time early in the morning to proceed with this.
[2019-08-18] MEDS: PATIENT OWN MEDICATION SQ SCH ×9 (09:26→21:12)
--- NOTE | 2019-08-18 09:42 | HP ---
HISTORY OF PRESENT ILLNESS: This is a 54 year-old patient of Dr. Akhtar who saw Dr. Leong yesterday and was made a direct admission for a boil of her left buttock. She had been seen in the emergency department this past Friday and refused admission at that time even though she was told she may become septic and from this. She reports that it started one week ago and they used PRID on it but it was multiple places and so it did not get any better. She reports low grade fevers at home. She has had some nausea, pain but the Dilaudid here through the IV is helping. She reports last night she was reaching to change plugs for her cell phone and developed some right hip pain which is bothering her quite a bit now. She denies any falls. She reports history of trouble with her hips in the past. She takes hydrocodone at home prescribed by Dr. Akhtar which she reports is for migraines and chronic pain syndrome. REVIEW OF SYSTEMS: No chest pain. No dyspnea. Otherwise review of systems is negative. Constipation with last stool a week ago. MEDICATIONS: Please see the home medication reconciliation list. ALLERGIES: PLEASE SEE THE LIST IN HER CHART. PAST MEDICAL HISTORY: She reports a history of kidney failure, history of heart problems including congestive heart failure, pulmonary hypertension and irregular heartbeat. She states that Dr. Colmenares is her milliner helper. Diabetes mellitus type 2 uncontrolled. PAST SURGICAL HISTORY: Carpal tunnel surgery bilaterally. Ulnar surgery bilaterally. Cataract surgery bilaterally. Left knee surgery. Tonsillectomy. Tubal ligation. Hysterectomy. Cholecystectomy. SOCIAL HISTORY: She lives at home with her fiance and a friend. She smokes one pack per day. She denies any alcohol or illicit drug use. FAMILY HISTORY: Her mother is and the patient states she has the same health problems as she did. Her father is and from heart problems and he also has asthma and AIDS. PHYSICAL EXAMINATION: VITAL SIGNS: Temperature current 98.3F, temperature max 98.5F, heart rate 76, respiratory rate 16, blood pressure 134/56. Oxygen saturation 97% on 3 liters. GENERAL: The patient is lying on her left side in bed in no acute distress. She is morbidly obese. CVS: Her heart has a regular rate and rhythm. No murmurs, gallops or rubs. CHEST: Clear to auscultation bilaterally. No crackles or wheezes. ABDOMEN: Soft, nontender, nondistended with normal bowel sounds. BUTTOCKS: She has a large excoriated area with eschar of her left buttock below her anus. EXTREMITIES: No clubbing, cyanosis or edema. LABORATORY DATA AND TESTS: White blood cell count was 9.4. Glucose 224. Hemoglobin A1C 11.5, triglycerides 370. UA with 50 glucose. Urine culture in lab. Blood culture in lab. EKG was normal sinus rhythm. ASSESSMENT AND PLAN: 1) PERIRECTAL ABSCESS: She is on vancomycin and meropenem currently with the general surgeon consulted and planning to do surgery today. 2) DIABETES MELLITUS TYPE 2 UNCONTROLLED: She wants to use her home insulin and so we have reordered that. She will need to follow up closely with her primary care doctor regarding her diabetes. 3) HISTORY OF CONGESTIVE HEART FAILURE: Will need to monitor her fluid status carefully. 4) RIGHT HIP PAIN: I told her I would check to see if we have any kind of muscle rub that might help with that pain that started while she was in the hospital. 5) CONSTIPATION: Will make sure that she is on some stool softener. She reported that she had not been able to have a stool for the past week due to the infection and pain around her rectum.
[2019-08-18] MEDS: Lactated Ringers 1,000 ML IV SCH (09:53)
[2019-08-18] MEDS ORDERED: Sensorcaine 0.25% 10 ML ONE (09:56)
[2019-08-18] MEDS ORDERED: Lactated Ringers 1,000 ML IV ONE (09:56)
[2019-08-18] MEDS: Pain Relieving Rub TOP SCH ×3 (09:59→20:54)
[2019-08-18] MEDS ORDERED: NON-FORMULARY ITEM (Fenofibrate [Fenofibrate] 160 MG) PO SCH (10:00)
[2019-08-18] MEDS ORDERED: NON-FORMULARY ITEM (Potassium Chloride 20 Meq [Klor-Con 20 Meq] 20 MEQ) PO SCH (10:00)
[2019-08-18] MEDS ORDERED: BUMETANIDE 4 MG PO SCH (10:00)
[2019-08-18] MEDS ORDERED: NON-FORMULARY ITEM (Rosuvastatin Calcium [Crestor] 40 MG) PO SCH (10:00)
[2019-08-18] MEDS: Flonase NASAL NS SCH ×2 (10:10→20:55)
[2019-08-18] MEDS ORDERED: Decadron 4 MG INJ ONE (12:18)
[2019-08-18] MEDS ORDERED: SUBLIMAZE 100 MCG/2 ML ONE ×2 (12:18→13:27)
[2019-08-18] MEDS ORDERED: DIPRIVAN 200 MG/20 ML IV ONE (12:18)
[2019-08-18] MEDS ORDERED: BRIDION 200MG/2ML IV ONE (12:18)
[2019-08-18] MEDS ORDERED: Zofran 4 MG/2 ML VIAL ONE ×2 (12:18→13:27)
[2019-08-18] MEDS ORDERED: Xylocaine-Mpf 2% 5 Ml Vial ONE (12:18)
[2019-08-18] MEDS ORDERED: Zemuron 100 MG/10 ML ONE (12:18)
[2019-08-18] MEDS ORDERED: Ketamine HCl 50 MG/ML ONE (12:19)
[2019-08-18] MEDS ORDERED: DILAUDID 2 MG INJECTION ONE (13:27)
--- NOTE | 2019-08-18 14:57 | OP ---
SURGERY DATE/TIME: 08/18/2019 1217 PREOPERATIVE DIAGNOSIS: Necrotizing perineal infection. POSTOPERATIVE DIAGNOSES: Necrotizing perineal infection left perineum (left labial and perirectal). PROCEDURE: Extensive excisional debridement of left perineal infection measuring 10 x 7 cm length and width and 7 cm deep including skin and subcutaneous tissue. SURGEON: Ramesh Belle M.D. ANESTHESIA: MAC. SPECIMENS: 1) Perineal wound for culture. 2) Perineal wound for permanent. ESTIMATED BLOOD LOSS: 100 cc. FINDINGS: Deep necrotizing infection of the left perineum involving the majority of the left labia extending into perirectal region with necrotic skin and subcutaneous fat. PATIENT PRESENTATION: This patient presents with a necrotizing infection that has been going on for a week in the left perineal region. I am doing this case for Dr. Paz, my partner, who was aviation electrician yesterday and evaluated the patient yesterday recommending debridement. However the patient was actively eating and not able to undergo anesthesia due to eating. After discussing the risks and benefits of excisional debridement with the patient and obtaining my own history and physical exam of the patient, recommended surgical debridement to the patient as the really only option for resolving this infection. I did discuss with her the likelihood of this taking potentially months to heal and potentially requiring repeat surgery and a long and difficult process to heal this significant wound. After discussing all of this the patient wished to proceed with surgery. DESCRIPTION OF PROCEDURE: The patient was brought to the operating room, placed under general anesthesia, placed in lithotomy position. There is a wide area of necrotic skin on the lower left labia extending to the perirectal region and this was elliptically excised with electrocautery. There was necrotic fat extending below this necrotic skin primarily in the left labia and this was excised with electrocautery down to healthy tissue. There was very good blood flow in this region and several bleeding areas were ligated with 2-0 Vicryl figure-of-8 sutures and hemostasis achieved with electrocautery. The specimen was handed off. Some additional debridement was performed of the edge of the wound to get to healthy tissue circumferentially and deep. The wound did tract quite deep at the center. There was also a pocket in the left gluteal region that did not really have much infection in it but this was connected in the main wound and maybe this was the original origin. Surgicel was placed in the wound bed after first irrigating and drying out the wound. The wound was packed with moist Kerlix. The patient was recovered and taken to PACU in stable condition.
[2019-08-18] MEDS: VITAMIN D PO SCH (15:14)
[2019-08-18] MEDS: BUMEX 1 MG PO SCH (15:14)
[2019-08-18] MEDS: Klor Con 10 MEQ PO SCH (15:14)
[2019-08-18] MEDS: Zestril 10 MG PO SCH (15:15)
[2019-08-18] MEDS: Protonix 40MG Tablet PO SCH (15:15)
[2019-08-18] MEDS: ISOPTIN S.R. 240 MG PO SCH (15:15)
[2019-08-18] MEDS: Tricor 145 MG PO SCH (15:15)
[2019-08-18] MEDS: MAG-OX 400 PO SCH ×3 (15:16→20:51)
[2019-08-18] MEDS: AMITIZA PO SCH ×2 (15:16→20:49)
[2019-08-18] MEDS: SYNTHROID 112 MCG PO SCH (15:16)
[2019-08-18] MEDS: Depakote EXTENDED RELEASE 250 MG PO SCH ×2 (15:16→20:50)
[2019-08-18] MEDS: Miralax Powder 17GM PACKET PO SCH (15:19)
[2019-08-18] MEDS: Colace 100 MG PO SCH ×2 (15:19→20:48)
[2019-08-18] MEDS: Sodium Chloride 0.9% 1000 ML 1,000 ML IV SCH (15:21)
[2019-08-18] MEDS: ZOCOR 20MG PO SCH (21:45)
[2019-08-19] MEDS: DILAUDID 2 MG INJECTION IV PRN ×5 (03:45→23:14)
[2019-08-19] MEDS: BENADRYL 25 MG CAPSULE PO PRN (05:07)
[2019-08-19] MEDS: Zofran 4 MG/2 ML VIAL IV PRN ×3 (05:22→23:32)
[2019-08-19] MEDS: Merrem 1 GM 1 G in Sodium Chloride 100ML MINI-BAG PLUS 100 ML IV SCH ×3 (05:23→21:15)
[2019-08-19] MEDS ORDERED: TROUGH DRUG LEVELS IJ ONE (05:30)
[2019-08-19] MEDS: VANCOMYCIN 2 GRAM/400 ML BAG 2 GM/400 ML PIGGYBACK IV SCH (06:01)
[2019-08-19] MEDS ORDERED: PATIENT OWN MEDICATION IH PRN (06:02)
[2019-08-19 06:19] LABS: Hematocrit 31.6 % (35-47); Hemoglobin 10.2 gm/dl (12.0-16.0); Mean Cell Volume 91.6 fl (78-100); Mean Corpuscular Hemoglobin 29.6 pg (26-32); Mean Corpuscular Hgb Concent. 32.3 g/dl (32-36); Mean Platelet Volume 11.5 fl (7.5-11.0); Platelet Count 174 K/mm3 (150-450); Red Blood Count 3.45 M/mm3 (4.1-5.4); Red Cell Distribution Width 12.6 % (11.5-14.0); White Blood Count 5.8 K/mm3 (4.0-10.5)
[2019-08-19 06:34] LABS: ANION GAP 11.1 MEQ/L (5-15); Calcium 8.5 mg/dL (8.4-10.2); Creatinine 1 1.11 mg/dL (0.52-1.04); Potassium 4.6 mmol/L (3.5-5.1)
[2019-08-19] MEDS: Lactated Ringers 1,000 ML IV SCH (07:25)
[2019-08-19] MEDS: PATIENT OWN MEDICATION SQ SCH ×9 (08:09→17:46)
[2019-08-19 09:13] LABS: BAND 2 % (0.0-2.0); Eosinophil 4 % (0.00-3.0); Lymphocytes 16 % (24-44); Monocyte 3 % (0.0-12.0); Neutrophils 75 % (36.0-66.0); Total Cells Counted 100
[2019-08-19 09:15] LABS: Platelet Estimate NORMAL (NORMAL)
[2019-08-19] MEDS: BUMEX 1 MG PO SCH (09:54)
[2019-08-19] MEDS: VITAMIN D PO SCH (09:54)
[2019-08-19] MEDS: ISOPTIN S.R. 240 MG PO SCH (09:54)
[2019-08-19] MEDS: Klor Con 10 MEQ PO SCH (09:54)
[2019-08-19] MEDS: Zestril 10 MG PO SCH (09:54)
[2019-08-19] MEDS: MAG-OX 400 PO SCH ×3 (09:54→21:14)
[2019-08-19] MEDS: Tricor 145 MG PO SCH (09:54)
[2019-08-19] MEDS: Colace 100 MG PO SCH ×2 (09:54→21:13)
[2019-08-19] MEDS: Protonix 40MG Tablet PO SCH (09:55)
[2019-08-19] MEDS: Flonase NASAL NS SCH ×2 (09:55→21:14)
[2019-08-19] MEDS: Miralax Powder 17GM PACKET PO SCH ×2 (09:56→21:16)
[2019-08-19] MEDS: Pain Relieving Rub TOP SCH ×3 (09:57→21:17)
[2019-08-19] MEDS: Depakote EXTENDED RELEASE 250 MG PO SCH ×2 (09:58→21:13)
[2019-08-19] MEDS: AMITIZA PO SCH ×2 (09:58→21:13)
[2019-08-19] MEDS: SYNTHROID 112 MCG PO SCH (09:59)
[2019-08-19] MEDS: Sodium Chloride 0.9% 1000 ML 1,000 ML IV SCH ×2 (10:15→16:23)
[2019-08-19] MEDS: NORCO 5/325 MG PO PRN (11:20)
[2019-08-19] MEDS: NON-FORMULARY ITEM TP SCH ×2 (13:01→21:16)
[2019-08-19] MEDS ORDERED: PATIENT OWN MEDICATION SQ PRN (14:33)
--- NOTE | 2019-08-19 15:41 | PCM.NOTE ---
Date and Time: 08/19/19 1536 Subjective Assessment: Patient reports she continues to have some right hip pain but controlled at this time with dilaudid. She has had some overall itching at night but better today. She took some benadryl for this. She is not sure if it may be the antibiotics or the pain medication. She is allergic to a lot of both. She needed a new IV today. She reports she is a brittle diabetic and sometimes will have hypoglycemia. She states she does not feel well if her blood glucose is <100. She states 300's are good numbers for her. - Review of Systems Constitutional: No Symptoms Respiratory: No Symptoms Musculoskeletal: Other (right hip pain/ pain in rectal area (area of infection)) Objective Exam General Appearance: no apparent distress, obese Neurologic Exam: alert, cooperative, normal mood/affect Skin Exam: normal color, warm, dry, other (area of wound not examined.) Wound Assessment: Skin/Wound Assessment Wound/Incision Assessment Start: 08/17/19 16: 04 Text: Status: Active Freq: Q6H Protocol: Document 08/19/19 14:00 KARSTEN (Rec: 08/19/19 14:15 KARSTEN [id number]) Wound/Incision Assessment Lower Posterior Buttock Wound Assessment Shift Assessment Wound Type Incision Wound Stage Non Pressure Wound Dressing Status Changed Drainage Amount None Surrounding Tissue Cerulean Primary Dressing Absorbant Pad Secondary Dressing mesh panties holding dressing in place Comment KERLEX PACKING WITH DAKINS SOLUTION Wound Photo Photo Taken No Respiratory Exam: normal breath sounds, lungs clear, No crackles/rales, No rhonchi, No wheezing Cardiovascular Exam: regular rate/rhythm, normal heart sounds, No murmur, No friction rub, No gallop Gastrointestinal/Abdomen Exam: soft, normal bowel sounds, No tenderness, No distention, No mass Extremity Exam: other (no c/c/e) OBJECTIVE DATA Vital Signs: Vital Signs - 24 hr Temp Pulse Resp BP Pulse Ox 08/19/19 12:00 97.7 F 73 16 130/58 97 08/19/19 08:00 98.4 F 71 18 131/54 98 08/19/19 07:38 71 18 98 08/19/19 04:10 98.5 F 78 20 130/66 96 08/19/19 00:12 98.6 F 76 18 124/65 96 08/18/19 20:32 76 18 97 08/18/19 20:01 98.2 F 73 21 143/70 97 Pain Assessment - Last Documented Pain Intensity 8 Pain Scale Used 0-10 Pain Scale Intake and Output: Intake & Output 08/17/19 08/18/19 08/19/19 08/20/19 06:59 06:59 06:59 06:59 Intake Total 480 4824 600 Output Total 480 5800 Balance 0 -976 600 Weight 116.5 kg 116.5 kg 116.5 kg Lab Results: Accuchecks Date 08/18/19 Time 22:00 Accucheck Value: 237 Accucheck Value: 357 Accucheck Value: 327 Accucheck Value: 297 Lab Results-Last 24 Hours 08/19/19 08/19/19 08/19/19 Range/Units 05:50 05:50 05:50 WBC 5.8 (4.0-10.5) K/mm3 RBC 3.45 L (4.1-5.4) M/mm3 Hgb 10.2 L (12.0-16.0) gm/dl Hct 31.6 L (35-47) % MCV 91.6 (78-100) fl MCH 29.6 (26-32) pg MCHC 32.3 (32-36) g/dl RDW 12.6 (11.5-14.0) % Plt Count 174 (150-450) K/mm3 MPV 11.5 H (7.5-11.0) fl Segmented Neutrophils 75 H (36.0-66.0) % Band Neutrophils 2 (0.0-2.0) % Lymphocytes (Manual) 16 L (24-44) % Monocytes (Manual) 3 (0.0-12.0) % Eosinophils (Manual) 4 H (0.00-3.0) % Platelet Estimate NORMAL (NORMAL) RBC Morphology NORMAL Sodium 130 L (137-145) mmol/L Potassium 4.6 (3.5-5.1) mmol/L Chloride 98 (98-107) mmol/L Carbon Dioxide 26 (22-30) mmol/L Anion Gap 11.1 (5-15) MEQ/L BUN 18 H (7-17) mg/dL Creatinine 1.11 H (0.52-1.04) mg/dL Estimated GFR 54.9 ML/MIN Glucose 334 H (74-106) mg/dL Calcium 8.5 (8.4-10.2) mg/dL Vancomycin Trough 25.01 H (10-20) ug/mL Radiology Exams: Radiology Procedures Category Date Time Status CHEST 2 VIEWS (PA AND LAT) Stat Exams 08/17/19 15:30 Completed Multi-Disciplinary Progress Notes: Multi-Disciplinary Progress Notes 08/19/19 11:22 Case Management Note by Shahida Nguyen NO CHANGE IN DC PLANS AT THIS TIME. MAY REQUIRE REFERRAL FOR HHC OR OTPT PT FOR DRESSING CHANGES AT TIME OF DC Initialized on 08/19/19 11:22 - END OF NOTE Assessment/Plan (1) Perianal abscess Current Visit: No Status: Acute Assessment & Plan: s/p surgery on 08/18/19. Continue IV antibiotics. Cultures pending. Code(s): K61.0 - ANAL ABSCESS (2) Uncontrolled diabetes mellitus Current Visit: No Status: Chronic Assessment & Plan: Will try to adjust her insulin today for better control; discussed with patient importance of good control of her diabetes as this will help her wound heal quicker. Code(s): E11.65 - TYPE 2 DIABETES MELLITUS WITH HYPERGLYCEMIA (3) History of CHF (congestive heart failure) Current Visit: Yes Status: Acute Code(s): Z86.79 - PERSONAL HISTORY OF OTHER DISEASES OF THE CIRCULATORY SYSTEM (4) Right hip pain Current Visit: Yes Status: Acute Assessment & Plan: Using muscle rub. Code(s): M25.551 - PAIN IN RIGHT HIP (5) Constipation Current Visit: Yes Status: Acute Assessment & Plan: Will increase miralax to bid and continue docusate and amitiza. Code(s): K59.00 - CONSTIPATION, UNSPECIFIED
[2019-08-19] MEDS: ZOCOR 20MG PO SCH (21:14)
[2019-08-20] MEDS: DILAUDID 2 MG INJECTION IV PRN ×4 (03:47→19:54)
[2019-08-20] MEDS: Merrem 1 GM 1 G in Sodium Chloride 100ML MINI-BAG PLUS 100 ML IV SCH ×3 (05:57→22:06)
[2019-08-20] MEDS: VANCOMYCIN 2 GRAM/400 ML BAG 2 GM/400 ML PIGGYBACK IV SCH (05:58)
[2019-08-20 06:03] LABS: Hematocrit 34.7 % (35-47); Hemoglobin 11.3 gm/dl (12.0-16.0); Mean Cell Volume 91.8 fl (78-100); Mean Corpuscular Hemoglobin 29.9 pg (26-32); Mean Corpuscular Hgb Concent. 32.6 g/dl (32-36); Mean Platelet Volume 11.5 fl (7.5-11.0); Platelet Count 264 K/mm3 (150-450); Red Blood Count 3.78 M/mm3 (4.1-5.4); Red Cell Distribution Width 12.8 % (11.5-14.0); White Blood Count 7.7 K/mm3 (4.0-10.5)
[2019-08-20 06:19] LABS: ANION GAP 13.8 MEQ/L (5-15); Calcium 9.5 mg/dL (8.4-10.2); Creatinine 1 1.2 mg/dL (0.52-1.04); Potassium 3.8 mmol/L (3.5-5.1)
[2019-08-20 07:31] LABS: BAND 7 % (0.0-2.0); Basophil 2 % (0.0-1.0); Eosinophil 4 % (0.00-3.0); Lymphocytes 27 % (24-44); Metamyelocyte 2 %; Monocyte 8 % (0.0-12.0); Neutrophils 50 % (36.0-66.0); Total Cells Counted 100
[2019-08-20] MEDS: Zofran 4 MG/2 ML VIAL IV PRN ×2 (07:31→19:54)
--- NOTE | 2019-08-20 08:15 | PCM.NOTE ---
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 she lost IV access overnight and has agreed to PIC line placement. Objective Exam General Appearance: no apparent distress, obese Neurologic Exam: alert, 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 Wound Assessment: Skin/Wound Assessment Wound/Incision Assessment Start: 08/17/19 16: 04 Text: Status: Active Freq: Q6H Protocol: Document 08/20/19 02:00 BERNABE (Rec: 08/20/19 04:36 BERNABE [id number]) Wound/Incision Assessment Lower Posterior Buttock Wound Assessment Shift Assessment Wound Type Incision Wound Stage Non Pressure Wound Dressing Status Dry & Intact Drainage Amount Minimal Drainage Description Brown Drainage Odor None/Absent General Appearance Open to air Unapproximated Surrounding Tissue Dark Red Blanched/Dull Edematous Primary Dressing Absorbant Pad Secondary Dressing mesh panties holding dressing in place Comment . Wound Photo Photo Taken Yes Respiratory Exam: normal breath sounds, lungs clear, No respiratory distress Cardiovascular Exam: regular rate/rhythm, normal heart sounds Gastrointestinal/Abdomen Exam: soft, No tenderness, No mass Rectal Exam: other (medial left buttock/perirectal region incised area with packing in place, mild surrounding erythema and induration, scant drainage present currently) OBJECTIVE DATA Vital Signs: Vital Signs - 24 hr Temp Pulse Resp BP Pulse Ox 08/20/19 04:00 99.8 F 80 16 143/86 98 08/20/19 00:00 98.6 F 68 15 112/62 100 08/19/19 20:00 98.5 F 69 20 128/69 92 L 08/19/19 19:51 69 16 96 08/19/19 16:00 98.6 F 73 16 136/66 97 08/19/19 12:00 97.7 F 73 16 130/58 97 Oxygen-Last 24 hours Oxygen Flowrate (L/min)-RT 3 Pain Assessment - Last Documented Pain Intensity 9 Pain Scale Used 0-10 Pain Scale Intake and Output: Intake & Output 08/17/19 08/18/19 08/19/19 08/20/19 11:59 11:59 11:59 11:59 Intake Total 224 1458 2307 Output Total 3419 4750 2300 Balance -600 -16 7 Weight 116.5 kg 116.5 kg Lab Results: Accuchecks Date 08/20/19 Time 07:39 Accucheck Value: 111 Accucheck Value: 162 Accucheck Value: 110 Accucheck Value: 237 Lab Results-Last 24 Hours 08/19/19 08/20/19 08/20/19 Range/Units 05:50 05:15 05:15 WBC 7.7 (4.0-10.5) K/mm3 RBC 3.78 L (4.1-5.4) M/mm3 Hgb 11.3 L (12.0-16.0) gm/dl Hct 34.7 L (35-47) % MCV 91.8 (78-100) fl MCH 29.9 (26-32) pg MCHC 32.6 (32-36) g/dl RDW 12.8 (11.5-14.0) % Plt Count 264 D (150-450) K/mm3 MPV 11.5 H (7.5-11.0) fl Absolute Granulocytes 4.40 (1.4-6.9) Segmented Neutrophils 75 H 50 (36.0-66.0) % Band Neutrophils 2 7 H (0.0-2.0) % Lymphocytes (Manual) 16 L 27 (24-44) % Monocytes (Manual) 3 8 (0.0-12.0) % Eosinophils (Manual) 4 H 4 H (0.00-3.0) % Basophils (Manual) 2 H (0.0-1.0) % Metamyelocytes 2 % Platelet Estimate NORMAL (NORMAL) RBC Morphology NORMAL Sodium 136 L (137-145) mmol/L Potassium 3.8 (3.5-5.1) mmol/L Chloride 96 L (98-107) mmol/L Carbon Dioxide 30 (22-30) mmol/L Anion Gap 13.8 (5-15) MEQ/L BUN 22 H (7-17) mg/dL Creatinine 1.20 H (0.52-1.04) mg/dL Estimated GFR 50.1 ML/MIN Glucose 93 (74-106) mg/dL Calcium 9.5 (8.4-10.2) mg/dL Magnesium (1.6-2.3) mg/dL 08/20/19 Range/Units 05:15 WBC (4.0-10.5) K/mm3 RBC (4.1-5.4) M/mm3 Hgb (12.0-16.0) gm/dl Hct (35-47) % MCV (78-100) fl MCH (26-32) pg MCHC (32-36) g/dl RDW (11.5-14.0) % Plt Count (150-450) K/mm3 MPV (7.5-11.0) fl Absolute Granulocytes (1.4-6.9) Segmented Neutrophils (36.0-66.0) % Band Neutrophils (0.0-2.0) % Lymphocytes (Manual) (24-44) % Monocytes (Manual) (0.0-12.0) % Eosinophils (Manual) (0.00-3.0) % Basophils (Manual) (0.0-1.0) % Metamyelocytes % Platelet Estimate (NORMAL) RBC Morphology Sodium (137-145) mmol/L Potassium (3.5-5.1) mmol/L Chloride (98-107) mmol/L Carbon Dioxide (22-30) mmol/L Anion Gap (5-15) MEQ/L BUN (7-17) mg/dL Creatinine (0.52-1.04) mg/dL Estimated GFR ML/MIN Glucose (74-106) mg/dL Calcium (8.4-10.2) mg/dL Magnesium 1.7 (1.6-2.3) mg/dL Radiology Exams: Radiology Procedures Category Date Time Status PICC LINE PLACEMENT Routine Exams 08/20/19 Ordered Multi-Disciplinary Progress Notes: Multi-Disciplinary Progress Notes 08/19/19 11:22 Case Management Note by Shahida Nguyen NO CHANGE IN DC PLANS AT THIS TIME. MAY REQUIRE REFERRAL FOR HHC OR OTPT PT FOR DRESSING CHANGES AT TIME OF DC Initialized on 08/19/19 11:22 - END OF NOTE Assessment/Plan (1) Perianal abscess Current Visit: No Status: Acute Assessment & Plan: culture results still pending from office and surgical specimen, currently on IV vanc and meropenem, PIC line will be placed today. she has no transportation and will likely need IV antibiotics for at least a week Code(s): K61.0 - ANAL ABSCESS (2) Uncontrolled diabetes mellitus Current Visit: No Status: Chronic Assessment & Plan: blood sugars are currently well controlled Code(s): E11.65 - TYPE 2 DIABETES MELLITUS WITH HYPERGLYCEMIA (3) History of CHF (congestive heart failure) Current Visit: Yes Status: Acute Code(s): Z86.79 - PERSONAL HISTORY OF OTHER DISEASES OF THE CIRCULATORY SYSTEM (4) Chronic pain syndrome Current Visit: No Status: Chronic Code(s): G89.4 - CHRONIC PAIN SYNDROME
[2019-08-20] MEDS: AMITIZA PO SCH ×2 (08:48→22:06)
[2019-08-20] MEDS: BUMEX 1 MG PO SCH (08:48)
[2019-08-20] MEDS: Colace 100 MG PO SCH ×2 (08:49→22:06)
[2019-08-20] MEDS: ISOPTIN S.R. 240 MG PO SCH (08:50)
[2019-08-20] MEDS: Klor Con 10 MEQ PO SCH (08:50)
[2019-08-20] MEDS: Depakote EXTENDED RELEASE 250 MG PO SCH ×2 (08:50→22:05)
[2019-08-20] MEDS: Miralax Powder 17GM PACKET PO SCH ×2 (08:51→22:05)
[2019-08-20] MEDS: Protonix 40MG Tablet PO SCH (08:51)
[2019-08-20] MEDS: MAG-OX 400 PO SCH ×3 (08:51→22:05)
[2019-08-20] MEDS: VITAMIN D PO SCH (08:52)
[2019-08-20] MEDS: Tricor 145 MG PO SCH (08:52)
[2019-08-20] MEDS: SYNTHROID 112 MCG PO SCH (08:52)
[2019-08-20] MEDS: Zestril 10 MG PO SCH (08:52)
[2019-08-20] MEDS: PATIENT OWN MEDICATION SQ SCH ×9 (09:11→16:36)
[2019-08-20] MEDS: Flonase NASAL NS SCH ×2 (09:12→21:51)
[2019-08-20] MEDS: Pain Relieving Rub TOP SCH ×3 (09:12→21:56)
[2019-08-20] MEDS ORDERED: Heparin 1000 units/ml (10 Ml vial) 1,000 U in Sodium Chloride 0.9% 500 ML 500 ML IV ONE (10:26)
[2019-08-20] MEDS: PERCOCET TABLET 5/325MG PO PRN ×3 (10:27→22:05)
--- NOTE | 2019-08-20 11:36 | XRAY ---
Indication: Ultrasound guidance for PICC line placement. Initial sonographic imaging of the right upper extremity was performed for localization of patent veins. A patent basilic vein identified above the elbow. Ultrasound guidance was then used for PICC line insertion. Full PICC line insertion is reported separately.
--- NOTE | 2019-08-20 11:41 | XRAY ---
Indication: Long-term IV access and therapy for perianal cellulitis and abscess. Informed consent obtained. Patient was placed on the fluoroscopic table in a supine position. Initial sonographic imaging of the right upper extremity was performed for localization of patent veins. The right upper extremity was then prepped and draped in sterile fashion. Tourniquet applied. 1% lidocaine plain used for local anesthesia. Using ultrasound guidance and a micropuncture needle, a basilic vein above the elbow was successfully percutaneously cannulized. A floppy tip 0.018 guidewire inserted. Tourniquet released. Needle was exchanged for a 5 [place]an dilator peel-away sheath catheter. Ultimately a 5 [place]an double-lumen PICC line was inserted over a longer 0.018 guidewire with the tip positioned in the distal SVC using fluoroscopic guidance. Guidewire removed. Both ports flushed with heparinized saline. Catheter was secured. Postoperative instructions and orders given. Patient discharged in good condition. Impression: Technically successful right upper extremity PICC line placement using ultrasound and fluoroscopic guidance. No immediate complications. Approximately 1 cc blood loss. Approximately 0.2 minute of fluoroscopy used. Catheter length is 34 cm.
[2019-08-20] MEDS: NON-FORMULARY ITEM TP SCH ×2 (12:54→21:54)
[2019-08-20] MEDS: ZOCOR 20MG PO SCH (22:05)
[2019-08-21] MEDS: PERCOCET TABLET 5/325MG PO PRN ×2 (03:26→12:47)
[2019-08-21 06:39] LABS: Hematocrit 33.3 % (35-47); Hemoglobin 10.9 gm/dl (12.0-16.0); Mean Cell Volume 92.2 fl (78-100); Mean Corpuscular Hemoglobin 30.2 pg (26-32); Mean Corpuscular Hgb Concent. 32.7 g/dl (32-36); Mean Platelet Volume 11.8 fl (7.5-11.0); Platelet Count 186 K/mm3 (150-450); Red Blood Count 3.61 M/mm3 (4.1-5.4); Red Cell Distribution Width 12.6 % (11.5-14.0); White Blood Count 4.4 K/mm3 (4.0-10.5)
[2019-08-21 06:50] LABS: ANION GAP 12.1 MEQ/L (5-15); Calcium 9.3 mg/dL (8.4-10.2); Creatinine 1 1.18 mg/dL (0.52-1.04); Potassium 4.3 mmol/L (3.5-5.1)
[2019-08-21] MEDS: VANCOMYCIN 2 GRAM/400 ML BAG 2 GM/400 ML PIGGYBACK IV SCH (07:05)
[2019-08-21] MEDS: Zofran 4 MG/2 ML VIAL IV PRN ×2 (07:33→20:12)
[2019-08-21] MEDS: DILAUDID 2 MG INJECTION IV PRN ×3 (07:33→20:12)
[2019-08-21] MEDS: PATIENT OWN MEDICATION SQ SCH ×9 (07:36→18:17)
[2019-08-21] MEDS: Merrem 1 GM 1 G in Sodium Chloride 100ML MINI-BAG PLUS 100 ML IV SCH ×3 (07:42→20:59)
--- NOTE | 2019-08-21 11:00 | PCM.NOTE ---
Date and Time: 08/21/19 1056 Subjective Assessment: She has had continued pain in her rectal/pelvic area. She reports no stool yet. - Review of Systems Constitutional: No Symptoms Respiratory: No Symptoms Cardiac: No Symptoms Abdominal/Gastrointestinal: Constipation, Other (pain in rectal area) Musculoskeletal: No Symptoms Objective Exam General Appearance: no apparent distress, obese Neurologic Exam: alert, cooperative, normal mood/affect Skin Exam: normal color, warm, dry Wound Assessment: Skin/Wound Assessment Wound/Incision Assessment Start: 08/17/19 16: 04 Text: Status: Active Freq: Q6H Protocol: Document 08/21/19 02:00 LM (Rec: 08/21/19 02:44 LM [id number]) Wound/Incision Assessment Lower Posterior Buttock Wound Assessment Shift Assessment Wound Type Incision Wound Stage Non Pressure Wound Dressing Status Dry & Intact Drainage Amount Minimal Drainage Description Brown Drainage Odor None/Absent General Appearance Open to air Unapproximated Surrounding Tissue Dark Red Blanched/Dull Edematous Primary Dressing Absorbant Pad Secondary Dressing mesh panties holding dressing in place Comment . Wound Photo Photo Taken Yes Respiratory Exam: normal breath sounds, lungs clear, No accessory muscle use, No crackles/rales, No rhonchi Cardiovascular Exam: regular rate/rhythm, normal heart sounds, No murmur, No friction rub, No gallop Gastrointestinal/Abdomen Exam: soft, normal bowel sounds, other (bandage in place, no recent pictures in hard chart), No tenderness, No distention OBJECTIVE DATA Vital Signs: Vital Signs - 24 hr Temp Pulse Resp BP Pulse Ox 08/21/19 08:00 98.4 F 82 16 157/69 96 08/21/19 04:10 98.2 F 77 20 136/86 96 08/21/19 04:00 98.9 F 78 20 135/59 97 08/20/19 23:51 98.9 F 78 20 135/59 97 08/20/19 22:07 75 20 96 08/20/19 19:50 98.5 F 76 20 137/53 96 08/20/19 16:00 100.0 F 82 18 143/66 97 08/20/19 12:00 98.9 F 77 18 137/64 96 Pain Assessment - Last Documented Pain Intensity 8 Pain Scale Used 0-10 Pain Scale Intake and Output: Intake & Output 08/19/19 08/20/19 08/21/19 06/07/20 06:59 06:59 06:59 06:59 Intake Total 4803 5284 3244 809 Output Total 5804 2300 3385 300 Balance -976 367 633 180 Weight 116.5 kg 116.5 kg Lab Results: Accuchecks Date 08/21/19 Date 08/20/19 Date 08/20/19 Time 07:30 Time 16:37 Time 12:38 Accucheck Value: 155 Accucheck Value: 139 Accucheck Value: 171 Accucheck Value: 262 Lab Results-Last 24 Hours 08/18/19 08/21/19 08/21/19 Range/Units 13:06 05:42 05:42 WBC 4.4 (4.0-10.5) K/mm3 RBC 3.61 L (4.1-5.4) M/mm3 Hgb 10.9 L (12.0-16.0) gm/dl Hct 33.3 L (35-47) % MCV 92.2 (78-100) fl MCH 30.2 (26-32) pg MCHC 32.7 (32-36) g/dl RDW 12.6 (11.5-14.0) % Plt Count 186 (150-450) K/mm3 MPV 11.8 H (7.5-11.0) fl Sodium 135 L (137-145) mmol/L Potassium 4.3 (3.5-5.1) mmol/L Chloride 96 L (98-107) mmol/L Carbon Dioxide 31 H (22-30) mmol/L Anion Gap 12.1 (5-15) MEQ/L BUN 27 H (7-17) mg/dL Creatinine 1.18 H (0.52-1.04) mg/dL Estimated GFR 51.1 ML/MIN Glucose 152 H (74-106) mg/dL Calcium 9.3 (8.4-10.2) mg/dL Surg PTH Diagnosis See Note H Radiology Exams: Radiology Procedures Category Date Time Status GUIDE FOR VASCULAR ACCESS [US] Routine Exams 08/20/19 10:35 Completed PICC LINE PLACEMENT Routine Exams 08/20/19 11:09 Completed Assessment/Plan (1) Perianal abscess Current Visit: Yes Status: Acute Assessment & Plan: Will stop vancomycin and start linezolid. Continue meropenem at this time unless general surgeons think this can be stopped. Meropenem and vanc were started on 08/17/19 at time of her admission. She most likely will need rehab care before discharge to home. Patient tells me at no time does she want home health. Code(s): K61.0 - ANAL ABSCESS (2) Uncontrolled diabetes mellitus Current Visit: No Status: Chronic Assessment & Plan: Better controlled with adjust in her insulin 2 days ago. Code(s): E11.65 - TYPE 2 DIABETES MELLITUS WITH HYPERGLYCEMIA (3) History of CHF (congestive heart failure) Current Visit: Yes Status: Acute Code(s): Z86.79 - PERSONAL HISTORY OF OTHER DISEASES OF THE CIRCULATORY SYSTEM (4) Right hip pain Current Visit: Yes Status: Resolved Code(s): M25.551 - PAIN IN RIGHT HIP (5) Constipation Current Visit: Yes Status: Acute Assessment & Plan: Continue miralax bid, docusate and give senna today. Code(s): K59.00 - CONSTIPATION, UNSPECIFIED
[2019-08-21 11:10] LABS: BAND 3 % (0.0-2.0); Eosinophil 5 % (0.00-3.0); Lymphocytes 23 % (24-44); Monocyte 6 % (0.0-12.0); Neutrophils 63 % (36.0-66.0); Platelet Estimate NORMAL (NORMAL); Total Cells Counted 100
[2019-08-21] MEDS ORDERED: SENOKOT 8.6 MG PO ONE (12:00)
[2019-08-21] MEDS ORDERED: TYLENOL 325 MG PO PRN (12:00)
[2019-08-21] MEDS: ISOPTIN S.R. 240 MG PO SCH (12:08)
[2019-08-21] MEDS: BUMEX 1 MG PO SCH (12:08)
[2019-08-21] MEDS: Klor Con 10 MEQ PO SCH (12:08)
[2019-08-21] MEDS: VITAMIN D PO SCH (12:08)
[2019-08-21] MEDS: MAG-OX 400 PO SCH ×3 (12:08→20:56)
[2019-08-21] MEDS: AMITIZA PO SCH ×2 (12:09→12:10)
[2019-08-21] MEDS: Zestril 10 MG PO SCH (12:09)
[2019-08-21] MEDS: Colace 100 MG PO SCH ×2 (12:09→23:06)
[2019-08-21] MEDS: Depakote EXTENDED RELEASE 250 MG PO SCH ×2 (12:09→20:57)
[2019-08-21] MEDS: Protonix 40MG Tablet PO SCH (12:09)
[2019-08-21] MEDS: Tricor 145 MG PO SCH (12:09)
[2019-08-21] MEDS: SYNTHROID 112 MCG PO SCH (12:27)
[2019-08-21] MEDS: Miralax Powder 17GM PACKET PO SCH ×2 (12:27→23:07)
[2019-08-21] MEDS: NON-FORMULARY ITEM TP SCH ×2 (12:52→23:07)
[2019-08-21] MEDS: Flonase NASAL NS SCH ×2 (12:59→23:07)
[2019-08-21] MEDS: Pain Relieving Rub TOP SCH ×3 (12:59→23:08)
[2019-08-21] MEDS: Zyvox 600 MG IV PREMIX*** 300 ML IV SCH (20:52)
[2019-08-21] MEDS: ZOCOR 20MG PO SCH (20:57)
[2019-08-22] MEDS: PERCOCET TABLET 5/325MG PO PRN (03:40)
[2019-08-22] MEDS: Merrem 1 GM 1 G in Sodium Chloride 100ML MINI-BAG PLUS 100 ML IV SCH ×3 (05:03→23:31)
[2019-08-22] MEDS: DILAUDID 2 MG INJECTION IV PRN ×4 (05:15→21:07)
[2019-08-22 06:40] LABS: ANION GAP 10.1 MEQ/L (5-15); Calcium 8.7 mg/dL (8.4-10.2); Creatinine 1 1.17 mg/dL (0.52-1.04); Potassium 3.9 mmol/L (3.5-5.1)
[2019-08-22 06:42] LABS: Hematocrit 33.9 % (35-47); Hemoglobin 11.8 gm/dl (12.0-16.0); Mean Cell Volume 91.9 fl (78-100); Mean Corpuscular Hgb Concent. 34.8 g/dl (32-36); Mean Platelet Volume 11.3 fl (7.5-11.0); Platelet Count 178 K/mm3 (150-450); Red Blood Count 3.69 M/mm3 (4.1-5.4); Red Cell Distribution Width 12.7 % (11.5-14.0); White Blood Count 4.1 K/mm3 (4.0-10.5)
[2019-08-22] MEDS: PATIENT OWN MEDICATION SQ SCH ×9 (07:56→16:51)
[2019-08-22] MEDS: Zofran 4 MG/2 ML VIAL IV PRN ×2 (08:00→14:01)
[2019-08-22] MEDS: Zyvox 600 MG IV PREMIX*** 300 ML IV SCH ×2 (08:22→21:07)
[2019-08-22 09:11] LABS: BAND 4 % (0.0-2.0); Eosinophil 2 % (0.00-3.0); Lymphocytes 13 % (24-44); Monocyte 7 % (0.0-12.0); Neutrophils 74 % (36.0-66.0); Platelet Estimate NORMAL (NORMAL); Total Cells Counted 100
[2019-08-22] MEDS: Miralax Powder 17GM PACKET PO SCH (09:22)
[2019-08-22] MEDS: Colace 100 MG PO SCH ×2 (09:23→21:09)
[2019-08-22] MEDS: AMITIZA PO SCH ×2 (09:32→21:18)
[2019-08-22] MEDS: BUMEX 1 MG PO SCH (09:32)
[2019-08-22] MEDS: Depakote EXTENDED RELEASE 250 MG PO SCH ×2 (09:33→21:17)
[2019-08-22] MEDS: ISOPTIN S.R. 240 MG PO SCH (09:34)
[2019-08-22] MEDS: Flonase NASAL NS SCH ×2 (09:34→22:06)
[2019-08-22] MEDS: Klor Con 10 MEQ PO SCH (09:35)
[2019-08-22] MEDS: MAG-OX 400 PO SCH ×3 (09:35→21:09)
[2019-08-22] MEDS: NON-FORMULARY ITEM TP SCH ×2 (09:35→22:07)
[2019-08-22] MEDS: VITAMIN D PO SCH (09:40)
[2019-08-22] MEDS: Protonix 40MG Tablet PO SCH (09:40)
[2019-08-22] MEDS: Tricor 145 MG PO SCH (09:40)
[2019-08-22] MEDS: Pain Relieving Rub TOP SCH ×3 (09:40→22:07)
[2019-08-22] MEDS: Zestril 10 MG PO SCH (09:41)
[2019-08-22] MEDS: SYNTHROID 112 MCG PO SCH (11:10)
[2019-08-22] MEDS: SYNTHROID 100 MCG PO SCH (13:35)
--- NOTE | 2019-08-22 13:43 | PCM.NOTE ---
Date and Time: 08/22/19 0996 Subjective Assessment: Patient reports she has continued pain in the area of her groin and also pain in her back. She would like to try a muscle relaxer. She reports her levothyroxine dose is wrong and should be a total of 212 mcg a day. She reports she had a large stool and multiple stools yesterday after not having a stool since before she came to the hospital. She is planning to go to [place] (if approved) to finish any IV antibiotics needed and for wound care. - Review of Systems Respiratory: No Symptoms Cardiac: No Symptoms Abdominal/Gastrointestinal: No Symptoms Musculoskeletal: Other (back pain; pain in groin area from wound) Objective Exam General Appearance: no apparent distress, obese, other (lying on right side) Neurologic Exam: alert, cooperative Skin Exam: normal color Wound Assessment: Skin/Wound Assessment Wound/Incision Assessment Start: 08/17/19 16: 04 Text: Status: Active Freq: Q6H Protocol: Document 08/22/19 02:00 BERNABE (Rec: 08/22/19 02:25 BERNABE [id number]) Wound/Incision Assessment Lower Posterior Buttock Wound Assessment Shift Assessment Wound Type Incision Wound Stage Non Pressure Wound Dressing Status Changed Drainage Amount Minimal Drainage Odor None/Absent General Appearance Asymptomatic Unapproximated Surrounding Tissue Dark Red Edematous Topical Solution/Irrigant Dakins Irrigant Packing Type Gauze Roll Primary Dressing Absorbant Pad Secondary Dressing mesh panties holding dressing in place Comment . Wound Photo Photo Taken Yes Respiratory Exam: normal breath sounds, lungs clear, No crackles/rales, No rhonchi, No wheezing Cardiovascular Exam: regular rate/rhythm, normal heart sounds, No murmur, No friction rub, No gallop Gastrointestinal/Abdomen Exam: soft, normal bowel sounds, No tenderness, No distention, No mass Comments: 08/22/19 13:39 wound dressed OBJECTIVE DATA Vital Signs: Vital Signs - 24 hr Temp Pulse Resp BP Pulse Ox 08/22/19 12:00 98.0 F 82 16 139/63 97 08/22/19 10:37 84 18 98 08/22/19 08:00 98.0 F 83 18 139/54 98 08/22/19 04:10 98.0 F 79 22 127/70 96 08/21/19 23:39 99.0 F 86 18 129/69 94 L 08/21/19 20:27 105 H 20 96 08/21/19 20:17 97.8 F 105 H 20 111/51 96 08/21/19 16:00 98.8 F 84 18 145/67 99 Pain Assessment - Last Documented Pain Intensity 9 Pain Scale Used 0-10 Pain Scale Intake and Output: Intake & Output 08/20/19 08/21/19 08/22/19 08/23/19 06:59 06:59 06:59 06:59 Intake Total 2667 3133 1520 360 Output Total 2300 2500 1100 Balance 367 633 420 360 Weight 116.5 kg Lab Results: Accuchecks Date 08/22/19 Date 08/22/19 Date 08/21/19 Time 11:30 Time 07:30 Time 22:00 Accucheck Value: 232 Accucheck Value: 93 Accucheck Value: 202 Accucheck Value: 106 Lab Results-Last 24 Hours 08/22/19 08/22/19 Range/Units 06:15 06:15 WBC 4.1 (4.0-10.5) K/mm3 RBC 3.69 L (4.1-5.4) M/mm3 Hgb 11.8 L (12.0-16.0) gm/dl Hct 33.9 L (35-47) % MCV 91.9 (78-100) fl MCH 32.0 (26-32) pg MCHC 34.8 (32-36) g/dl RDW 12.7 (11.5-14.0) % Plt Count 178 (150-450) K/mm3 MPV 11.3 H (7.5-11.0) fl Segmented Neutrophils 74 H (36.0-66.0) % Band Neutrophils 4 H (0.0-2.0) % Lymphocytes (Manual) 13 L (24-44) % Monocytes (Manual) 7 (0.0-12.0) % Eosinophils (Manual) 2 (0.00-3.0) % Platelet Estimate NORMAL (NORMAL) RBC Morphology NORMAL Sodium 136 L (137-145) mmol/L Potassium 3.9 (3.5-5.1) mmol/L Chloride 99 (98-107) mmol/L Carbon Dioxide 32 H (22-30) mmol/L Anion Gap 10.1 (5-15) MEQ/L BUN 30 H (7-17) mg/dL Creatinine 1.17 H (0.52-1.04) mg/dL Estimated GFR 51.6 ML/MIN Glucose 79 (74-106) mg/dL Calcium 8.7 (8.4-10.2) mg/dL Assessment/Plan (1) Perianal abscess Current Visit: Yes Status: Acute Assessment & Plan: Continue with current antibiotics. She was on Vancomycin and meropenem since admission. Vancomycin was stopped yesterday and changed to linezolid. Options were limited as patient has many allergies. Meropenem was continued for gram negative coverage given the area of the wound despite the wound growing a gram positive organism. If the surgeons are compfortable with stopping meropenem, it may be stopped. Code(s): K61.0 - ANAL ABSCESS (2) Uncontrolled diabetes mellitus Current Visit: No Status: Chronic Assessment & Plan: These have been better controlled since her insulin was adjusted mid week last week. She is not on a conventional dose of insulin. She takes both her short acting and long acting three times a day. Dr. Akhtar is her pcp and manages her diabetes as an outpatient. Code(s): E11.65 - TYPE 2 DIABETES MELLITUS WITH HYPERGLYCEMIA (3) History of CHF (congestive heart failure) Current Visit: Yes Status: Acute Code(s): Z86.79 - PERSONAL HISTORY OF OTHER DISEASES OF THE CIRCULATORY SYSTEM (4) Right hip pain Current Visit: Yes Status: Resolved Assessment & Plan: Also back pain now too; PT consulted today to see her tomorrow. She currently has dilaudid IV as needed (ordered from start of admission) and percocet prn ( added when Dr. Sanchez rounded on her Friday) for pain control. Will try muscle relaxer as well. Code(s): M25.551 - PAIN IN RIGHT HIP (5) Constipation Current Visit: Yes Status: Resolved Assessment & Plan: Patient reports resolved now. Will continue amitiza, docusate and decrease miralax from bid to daily. Code(s): K59.00 - CONSTIPATION, UNSPECIFIED (6) Hypothyroidism Current Visit: Yes Status: Acute Assessment & Plan: Home dose of levothyroxine ordered today. Code(s): E03.9 - HYPOTHYROIDISM, UNSPECIFIED
[2019-08-22] MEDS: Cyclobenzaprine 10 MG PO PRN ×2 (13:54→21:21)
[2019-08-22] MEDS: ZOCOR 20MG PO SCH (21:09)
[2019-08-23] MEDS: PERCOCET TABLET 5/325MG PO PRN ×4 (01:38→19:44)
[2019-08-23] MEDS: SYNTHROID 112 MCG PO SCH (05:44)
[2019-08-23] MEDS: Merrem 1 GM 1 G in Sodium Chloride 100ML MINI-BAG PLUS 100 ML IV SCH ×3 (05:44→22:05)
[2019-08-23] MEDS: SYNTHROID 100 MCG PO SCH (05:44)
--- NOTE | 2019-08-23 07:52 | PCM.NOTE ---
Date and Time: 08/23/19 0751 Subjective Assessment: patient reports improvement in pain, still has severe pain and requires dilaudid when her wound is packed. Objective Exam General Appearance: no apparent distress, obese Skin Exam: normal color, warm, dry Wound Assessment: Skin/Wound Assessment Wound/Incision Assessment Start: 08/17/19 16: 04 Text: Status: Active Freq: Q6H Protocol: Document 08/23/19 02:00 BERNABE (Rec: 08/23/19 04:03 BERNABE [id number]) Wound/Incision Assessment Lower Posterior Buttock Wound Assessment Shift Assessment Wound Type Incision Wound Stage Non Pressure Wound Dressing Status Dry & Intact Drainage Amount Minimal Drainage Description Serosanguineous Drainage Odor None/Absent General Appearance Asymptomatic Unapproximated Surrounding Tissue Dark Red Edematous Topical Solution/Irrigant Dakins Irrigant Packing Type Gauze Roll Primary Dressing Absorbant Pad Secondary Dressing mesh panties holding dressing in place Comment . Wound Photo Photo Taken Yes Respiratory Exam: normal breath sounds, lungs clear, No respiratory distress Cardiovascular Exam: regular rate/rhythm, normal heart sounds Gastrointestinal/Abdomen Exam: soft, No tenderness, No mass Rectal Exam: other (dressing/packing in place) OBJECTIVE DATA Vital Signs: Vital Signs - 24 hr Temp Pulse Resp BP Pulse Ox 08/23/19 06:52 74 18 96 08/23/19 04:08 98.5 F 78 18 136/89 97 08/22/19 23:37 98.5 F 86 18 153/66 96 08/22/19 20:41 79 20 100 08/22/19 19:44 98.2 F 79 20 139/64 100 08/22/19 16:00 98.3 F 75 16 130/60 98 08/22/19 12:00 98.0 F 82 16 139/63 97 08/22/19 10:37 84 18 98 08/22/19 08:00 98.0 F 83 18 139/54 98 Pain Assessment - Last Documented Pain Intensity 8 Pain Scale Used 0-10 Pain Scale Intake and Output: Intake & Output 08/20/19 08/21/19 08/22/19 08/23/19 11:59 11:59 11:59 11:59 Intake Total 2547 3373 1400 3046 Output Total 2300 2800 800 Balance 247 274 406 0647 Lab Results: Accuchecks Date 08/22/19 Date 08/22/19 Date 08/22/19 Time 21:02 Time 16:44 Time 11:30 Accucheck Value: 97 Accucheck Value: 178 Accucheck Value: 232 Lab Results-Last 24 Hours 08/22/19 Range/Units 06:15 Segmented Neutrophils 74 H (36.0-66.0) % Band Neutrophils 4 H (0.0-2.0) % Lymphocytes (Manual) 13 L (24-44) % Monocytes (Manual) 7 (0.0-12.0) % Eosinophils (Manual) 2 (0.00-3.0) % Platelet Estimate NORMAL (NORMAL) RBC Morphology NORMAL Assessment/Plan (1) Perianal abscess Current Visit: Yes Status: Acute Assessment & Plan: strep ag on culture, on zyvox. plan to discharge to [place] for wound care , patient has no transportation to come as outpatient when discharged. Code(s): K61.0 - ANAL ABSCESS (2) Uncontrolled diabetes mellitus Current Visit: No Status: Chronic Code(s): E11.65 - TYPE 2 DIABETES MELLITUS WITH HYPERGLYCEMIA (3) History of CHF (congestive heart failure) Current Visit: Yes Status: Acute Code(s): Z86.79 - PERSONAL HISTORY OF OTHER DISEASES OF THE CIRCULATORY SYSTEM (4) Chronic pain syndrome Current Visit: No Status: Chronic Code(s): G89.4 - CHRONIC PAIN SYNDROME
[2019-08-23] MEDS: PATIENT OWN MEDICATION SQ SCH ×9 (08:14→18:18)
[2019-08-23] MEDS: Zyvox 600 MG IV PREMIX*** 300 ML IV SCH ×2 (08:20→19:44)
[2019-08-23] MEDS: ZOFRAN ODT 4 MG PO PRN ×2 (08:28→17:24)
[2019-08-23] MEDS: BUMEX 1 MG PO SCH (09:10)
[2019-08-23] MEDS: VITAMIN D PO SCH (09:12)
[2019-08-23] MEDS: AMITIZA PO SCH ×2 (09:12→21:08)
[2019-08-23] MEDS: Colace 100 MG PO SCH ×2 (09:13→21:09)
[2019-08-23] MEDS: Depakote EXTENDED RELEASE 250 MG PO SCH ×2 (09:13→21:09)
[2019-08-23] MEDS: Tricor 145 MG PO SCH (09:13)
[2019-08-23] MEDS: Flonase NASAL NS SCH ×2 (09:13→21:12)
[2019-08-23] MEDS: Miralax Powder 17GM PACKET PO SCH (09:14)
[2019-08-23] MEDS: Protonix 40MG Tablet PO SCH (09:17)
[2019-08-23] MEDS: Zestril 10 MG PO SCH (09:17)
[2019-08-23] MEDS: Klor Con 10 MEQ PO SCH (09:17)
[2019-08-23] MEDS: MAG-OX 400 PO SCH ×3 (09:17→21:08)
[2019-08-23] MEDS: ISOPTIN S.R. 240 MG PO SCH (09:17)
[2019-08-23] MEDS: Cyclobenzaprine 10 MG PO PRN ×2 (09:18→22:26)
[2019-08-23] MEDS: Pain Relieving Rub TOP SCH ×3 (09:21→21:11)
[2019-08-23] MEDS: NON-FORMULARY ITEM TP SCH ×2 (09:22→21:09)
[2019-08-23] MEDS: DILAUDID 2 MG INJECTION IV PRN ×2 (10:57→22:04)
[2019-08-23] MEDS: ZOCOR 20MG PO SCH (21:09)
[2019-08-23] MEDS: BENADRYL 25 MG CAPSULE PO PRN (22:26)
[2019-08-24] MEDS: PERCOCET TABLET 5/325MG PO PRN ×2 (02:25→12:04)
[2019-08-24 05:27] LABS: Hematocrit 30.2 % (35-47); Hemoglobin 9.6 gm/dl (12.0-16.0); Mean Cell Volume 93.5 fl (78-100); Mean Corpuscular Hemoglobin 29.7 pg (26-32); Mean Corpuscular Hgb Concent. 31.8 g/dl (32-36); Mean Platelet Volume 11.1 fl (7.5-11.0); Platelet Count 198 K/mm3 (150-450); Red Blood Count 3.23 M/mm3 (4.1-5.4); Red Cell Distribution Width 12.9 % (11.5-14.0); White Blood Count 4.8 K/mm3 (4.0-10.5)
[2019-08-24 06:02] LABS: ANION GAP 12.1 MEQ/L (5-15); Calcium 9.2 mg/dL (8.4-10.2); Creatinine 1 1.37 mg/dL (0.52-1.04); Potassium 4.1 mmol/L (3.5-5.1)
[2019-08-24] MEDS: SYNTHROID 112 MCG PO SCH (06:16)
[2019-08-24] MEDS: SYNTHROID 100 MCG PO SCH (06:16)
[2019-08-24] MEDS: Merrem 1 GM 1 G in Sodium Chloride 100ML MINI-BAG PLUS 100 ML IV SCH (06:20)
[2019-08-24] MEDS: ZOFRAN ODT 4 MG PO PRN ×2 (06:32→12:33)
[2019-08-24 07:19] LABS: BAND 4 % (0.0-2.0); Eosinophil 1 % (0.00-3.0); Lymphocytes 32 % (24-44); Metamyelocyte 1 %; Monocyte 6 % (0.0-12.0); Neutrophils 56 % (36.0-66.0); Total Cells Counted 100
[2019-08-24 07:20] LABS: ANISOCYTOSIS 1+; Hypochromia 1+; Platelet Estimate NORMAL (NORMAL); Polychromasia 1+
[2019-08-24 08:15] VITALS: O2SAT 97
[2019-08-24] MEDS: PATIENT OWN MEDICATION SQ SCH ×6 (08:17→12:10)
[2019-08-24] MEDS: Zyvox 600 MG IV PREMIX*** 300 ML IV SCH (09:08)
--- NOTE | 2019-08-24 09:48 | PCM.NOTE ---
Date and Time: 08/24/19945 Subjective Assessment: patient c/o diarrhea, has some incontinence at times Objective Exam General Appearance: no apparent distress, alert Wound Assessment: Skin/Wound Assessment Wound/Incision Assessment Start: 08/17/19 16: 04 Text: Status: Active Freq: Q6H Protocol: Document 08/24/19 08:00 DS (Rec: 08/24/19 08:50 DS [id number]) Wound/Incision Assessment Lower Posterior Buttock Wound Assessment Shift Assessment Wound Type Incision Wound Stage Non Pressure Wound Dressing Status Dry & Intact Drainage Amount Minimal Drainage Description Serosanguineous Drainage Odor None/Absent General Appearance Asymptomatic Unapproximated Surrounding Tissue Dark Red Edematous Topical Solution/Irrigant Dakins Irrigant Packing Type Gauze Roll Primary Dressing Absorbant Pad Secondary Dressing mesh panties holding dressing in place at this time Comment . Wound Photo Photo Taken No Respiratory Exam: normal breath sounds Cardiovascular Exam: regular rate/rhythm, normal heart sounds Gastrointestinal/Abdomen Exam: soft, No tenderness, No mass OBJECTIVE DATA Vital Signs: Vital Signs - 24 hr Temp Pulse Resp BP Pulse Ox 08/24/19 08:00 97.7 F 77 16 138/63 97 08/24/19 03:01 98 F 79 20 121/53 99 08/24/19 00:00 97.9 F 83 20 138/74 97 08/23/19 19:45 97.7 F 78 20 118/55 98 08/23/19 16:00 97.8 F 80 18 169/65 100 08/23/19 12:00 97.8 F 86 20 157/74 99 Pain Assessment - Last Documented Pain Intensity 3 Pain Scale Used 0-10 Pain Scale Intake and Output: Intake & Output 08/21/19 08/22/19 08/23/19 08/24/19 11:59 11:59 11:59 11:59 Intake Total 3373 1400 3286 3359 Output Total 2800 800 2 Balance 150 404 8253 3357 Lab Results: Accuchecks Date 08/24/19 Date 08/23/19 Date 08/23/19 Time 07:30 Time 22:00 Time 11:30 Accucheck Value: 85 Accucheck Value: 150 Lab Results-Last 24 Hours 08/24/19 08/24/19 Range/Units 04:45 04:45 WBC 4.8 (4.0-10.5) K/mm3 RBC 3.23 L (4.1-5.4) M/mm3 Hgb 9.6 L (12.0-16.0) gm/dl Hct 30.2 L (35-47) % MCV 93.5 (78-100) fl MCH 29.7 (26-32) pg MCHC 31.8 L (32-36) g/dl RDW 12.9 (11.5-14.0) % Plt Count 198 (150-450) K/mm3 MPV 11.1 H (7.5-11.0) fl Absolute Granulocytes 2.90 (1.4-6.9) Segmented Neutrophils 56 (36.0-66.0) % Band Neutrophils 4 H (0.0-2.0) % Lymphocytes (Manual) 32 (24-44) % Monocytes (Manual) 6 (0.0-12.0) % Eosinophils (Manual) 1 (0.00-3.0) % Metamyelocytes 1 % Hypochromia 1+ Platelet Estimate NORMAL (NORMAL) RBC Morphology ABNORMAL Polychromasia 1+ Anisocytosis 1+ Sodium 137 (137-145) mmol/L Potassium 4.1 (3.5-5.1) mmol/L Chloride 98 (98-107) mmol/L Carbon Dioxide 31 H (22-30) mmol/L Anion Gap 12.1 (5-15) MEQ/L BUN 39 H (7-17) mg/dL Creatinine 1.37 H (0.52-1.04) mg/dL Estimated GFR 43.0 ML/MIN Glucose 80 (74-106) mg/dL Calcium 9.2 (8.4-10.2) mg/dL Multi-Disciplinary Progress Notes: Multi-Disciplinary Progress Notes 08/23/19 13:07 Nutrition Note by Minnie Saldana F/u Note: 1800 CC diet with con't with 50-100% po intake. weight stable as of . Labs 08/21= Na 136, BUN 30, Cr 1.17, glu wnl. goal of po intake >=75% not met consistently and ongoing; goal #2 glu to decrease met - goal changed to maintaining glu wnl; goal #3) consuming 100% [id number]. Recommend to con't with current diet. Will con't to monitor and f/u prn. T.MS [email or web address] Initialized on 08/23/19 13:07 - END OF NOTE 08/23/19 12:00 (created 08/23/19 16:01) Case Management Note by Freida Green CONTINUE TO AWAIT PRECERT FOR PT TO TRANSITION TO [facility] FOR CONTINUED WOUND CARE. PT DENIES ADDNL NEEDS AT PRESENT TIME. Initialized on 08/23/19 16:01 - END OF NOTE Assessment/Plan (1) Perianal abscess Current Visit: Yes Status: Acute Assessment & Plan: s/p incision and drainage, on zyvox based on culture. plan to [place] for wound care Code(s): K61.0 - ANAL ABSCESS (2) Uncontrolled diabetes mellitus Current Visit: No Status: Chronic Code(s): E11.65 - TYPE 2 DIABETES MELLITUS WITH HYPERGLYCEMIA (3) History of CHF (congestive heart failure) Current Visit: Yes Status: Acute Code(s): Z86.79 - PERSONAL HISTORY OF OTHER DISEASES OF THE CIRCULATORY SYSTEM (4) Chronic pain syndrome Current Visit: No Status: Chronic Code(s): G89.4 - CHRONIC PAIN SYNDROME
[2019-08-24] MEDS: BUMEX 1 MG PO SCH (09:51)
[2019-08-24] MEDS: Miralax Powder 17GM PACKET PO SCH (09:51)
[2019-08-24] MEDS: MAG-OX 400 PO SCH (09:52)
[2019-08-24] MEDS: Klor Con 10 MEQ PO SCH (09:53)
[2019-08-24] MEDS: VITAMIN D PO SCH (09:53)
[2019-08-24] MEDS: Zestril 10 MG PO SCH (09:54)
[2019-08-24] MEDS: Protonix 40MG Tablet PO SCH (09:54)
[2019-08-24] MEDS: Colace 100 MG PO SCH (09:54)
[2019-08-24] MEDS: ISOPTIN S.R. 240 MG PO SCH (09:55)
[2019-08-24] MEDS: Tricor 145 MG PO SCH (09:56)
[2019-08-24] MEDS ORDERED: IMODIUM 2 MG PO PRN (09:56)
[2019-08-24] MEDS: Flonase NASAL NS SCH (09:57)
[2019-08-24] MEDS: AMITIZA PO SCH (09:58)
[2019-08-24] MEDS: Pain Relieving Rub TOP SCH (10:00)
[2019-08-24] MEDS: Depakote EXTENDED RELEASE 250 MG PO SCH (10:03)
--- NOTE | 2019-08-24 10:21 | PCM.DS ---
Discharge Summary Date of Admission: 08/17/19 13:59 Admitting Physician: SHIRA CORONEL Consults: Consults on Case 08/17/19 14:07 Consult Surgery ROUTINE Primary Care Provider: VAIBHAV CHURCHILL Allergies Allergies adhesive Allergy (Intermediate, Verified 08/15/19 09:14) Rash ciprofloxacin HCl [From Cipro] Allergy (Intermediate, Verified 08/15/19 09:14) Rash gatifloxacin [From Tequin] Allergy (Intermediate, Verified 08/15/19 09:14) Rash levofloxacin [From Levaquin] Allergy (Intermediate, Verified 08/15/19 09:14) Rash aspirin Allergy (Verified 08/15/19 09:14) bupropion HCl [From Wellbutrin] Allergy (Verified 08/15/19 09:14) carisoprodol [From Soma] Allergy (Verified 08/15/19 09:14) cefaclor [From Ceclor] Allergy (Verified 08/15/19 09:14) ceftibuten dihydrate [From Cedax] Allergy (Verified 08/15/19 09:14) cephalexin monohydrate [From Keflex] Allergy (Verified 08/15/19 09:14) clarithromycin [From Biaxin] Allergy (Verified 08/15/19 09:14) clotrimazole [From Lotrimin] Allergy (Verified 08/15/19 09:14) codeine [Codeine] Allergy (Verified 08/15/19 09:14) erythromycin base [Erythromycin Base] Allergy (Verified 08/15/19 09:14) ketorolac tromethamine [From Toradol] Allergy (Verified 08/15/19 09:14) loracarbef [From Lorabid] Allergy (Verified 08/15/19 09:14) meperidine HCl [From Demerol] Allergy (Verified 08/15/19 09:14) morphine Allergy (Verified 08/15/19 09:14) Norgestimate-Ethi *RETIRED-07/08/12 [From Ortho Tri-Cyclen (21)] Allergy ( Verified 08/15/19 09:14) Penicillins Allergy (Verified 08/15/19 09:14) prochlorperazine edisylate [From Compazine] Allergy (Verified 08/15/19 09:14) promethazine [From Phenergan] Allergy (Verified 08/15/19 09:14) Hives promethazine HCl [From Phenergan] Allergy (Verified 08/15/19 09:14) Sulfa (Sulfonamide Antibiotics) [Sulfa(Sulfonamide Antibiotics)] Allergy ( Verified 08/15/19 09:14) sumatriptan [From Imitrex] Allergy (Verified 08/15/19 09:14) melon Adverse Reaction (Verified 08/15/19 09:14) Hospital Summary - Hospital Course Hospital Course: patient was admitted with a perianal abscess, had incision and drainage. culture revealed strep agal. has improved with IV abx. will transfer to [facility] for wound care. - Vitals & Intake/Output Vital Signs: Vital Signs Temperature 97.7 F 08/24/19 08:00 Pulse Rate 89 08/24/19 08:37 Respiratory Rate 16 08/24/19 08:37 Blood Pressure 138/63 08/24/19 08:00 O2 Sat by Pulse Oximetry 97 08/24/19 08:37 Intake & Output: Intake & Output 08/21/19 08/22/19 08/23/19 08/24/19 11:59 11:59 11:59 11:59 Intake Total 3373 1400 3286 3359 Output Total 2800 800 2 Balance 820 305 6537 3357 - Lab Result Diagrams: 08/24/19 04:45 08/24/19 04:45 Lab Results-Last 24 Hrs: Accuchecks Date 08/24/19 Date 08/23/19 Date 08/23/19 Time 07:30 Time 22:00 Time 11:30 Accucheck Value: 85 Accucheck Value: 150 Lab Results-Last 24 Hours 08/24/19 08/24/19 Range/Units 04:45 04:45 WBC 4.8 (4.0-10.5) K/mm3 RBC 3.23 L (4.1-5.4) M/mm3 Hgb 9.6 L (12.0-16.0) gm/dl Hct 30.2 L (35-47) % MCV 93.5 (78-100) fl MCH 29.7 (26-32) pg MCHC 31.8 L (32-36) g/dl RDW 12.9 (11.5-14.0) % Plt Count 198 (150-450) K/mm3 MPV 11.1 H (7.5-11.0) fl Absolute Granulocytes 2.90 (1.4-6.9) Segmented Neutrophils 56 (36.0-66.0) % Band Neutrophils 4 H (0.0-2.0) % Lymphocytes (Manual) 32 (24-44) % Monocytes (Manual) 6 (0.0-12.0) % Eosinophils (Manual) 1 (0.00-3.0) % Metamyelocytes 1 % Hypochromia 1+ Platelet Estimate NORMAL (NORMAL) RBC Morphology ABNORMAL Polychromasia 1+ Anisocytosis 1+ Sodium 137 (137-145) mmol/L Potassium 4.1 (3.5-5.1) mmol/L Chloride 98 (98-107) mmol/L Carbon Dioxide 31 H (22-30) mmol/L Anion Gap 12.1 (5-15) MEQ/L BUN 39 H (7-17) mg/dL Creatinine 1.37 H (0.52-1.04) mg/dL Estimated GFR 43.0 ML/MIN Glucose 80 (74-106) mg/dL Calcium 9.2 (8.4-10.2) mg/dL Micro Results-Entire Visit: Microbiology 08/17/19 14:31 Blood Culture Gram Stain - Final Blood Not Reportable Blood Culture - Final NO GROWTH 08/17/19 14:19 Blood Culture Gram Stain - Final Blood Not Reportable Blood Culture - Final NO GROWTH 08/18/19 13:06 Abscess Culture - Final Groin - Left Streptococcus Agalactiae 08/17/19 Unknown Urine Culture - Final Urine, Void NO GROWTH Accuchecks Date 08/24/19 Date 08/23/19 Date 08/23/19 Time 07:30 Time 22:00 Time 11:30 Accucheck Value: 85 Accucheck Value: 150 - Procedures and Test Procedures and Tests throughout Hospitalization: Therapy Orders & Screens 08/17/19 14:07 EKG STAT Comment: 08/17/19 16:04 PT Screen per Nursing Assess Comment: Protocol Order Physician Instructions: Greater than 3 points order PT Admission Screenin Reason For Exam: Triggered on Admission Diagnosis: Abcess left buttock Open Wound/Cellutlitis/Pressure Ulcers: Yes Acute Fx/ORIF/Change in wt bearing status: No Severe MUSCULOSKELETAL pain: No ADL Dysfunction: No Acute CVA w/Hemiparesis/Hemiplegia: No Decreased Functional Mobility/Strength: Yes Sprain/Strain: No Acute Post-op Mobility Dysfunction: No Total Points: 6 RT Screen per Nursing Assess ONCE Comment: Protocol Order Physician Instructions: Greater than 3 points order RT Admission Screen Reason For Exam: Triggered on Admission Diagnosis: Abcess left buttock Diagnosis: Abcess left buttock Pneumonia: No Home O2: No Asthma: No CHF: Yes Home CPAP/BIPAP: Yes Home Nebs/MDI: Yes Total Points: 13 Smoking Cessation Education ONCE Comment: Diagnosis: Abcess left buttock Smoking Status: Current every day smoker How long have you smoked: 46 yrs Have you smoked in the past 12 months: Yes Approximately how many cigarettes per day: 20 Do you dip or chew tobacco: No 08/17/19 21:18 Oxygen Nasal Cannula 3 lpm Comment: Diagnosis: Abcess left buttock 08/18/19 07:00 Respiratory Therapy Assessment DAILY Comment: Diagnosis: Abcess left buttock 08/19/19 07:00 Respiratory MDI PRN Comment: SYMBICORT - PT OWN MED Diagnosis: Abcess left buttock 08/22/19 11:13 PT Eval & Treat (MD Order) ROUTINE Reason for Eval:: back pain; surgeons have been ordering dressing changes/ wound care Diagnosis: Abcess left buttock 08/24/19 06:37 Smoking Cessation Education ONCE Comment: Diagnosis: Abcess left buttock Smoking Status: Current every day smoker How long have you smoked: 46 yrs Have you smoked in the past 12 months: Yes Approximately how many cigarettes per day: 20 Do you dip or chew tobacco: No Discharge Exam General Appearance: no apparent distress, obese Neurologic Exam: alert, 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 Respiratory Exam: normal breath sounds, lungs clear, No respiratory distress Cardiovascular Exam: regular rate/rhythm, normal heart sounds Gastrointestinal/Abdomen Exam: soft, No tenderness, No mass Rectal Exam: other (packed open area, erythema and drainage improved, healing well) Wound Assessment: Skin/Wound Assessment Wound/Incision Assessment Start: 08/17/19 16: 04 Text: Status: Active Freq: Q6H Protocol: Document 08/24/19 08:00 DS (Rec: 08/24/19 08:50 DS [id number]) Wound/Incision Assessment Lower Posterior Buttock Wound Assessment Shift Assessment Wound Type Incision Wound Stage Non Pressure Wound Dressing Status Dry & Intact Drainage Amount Minimal Drainage Description Serosanguineous Drainage Odor None/Absent General Appearance Asymptomatic Unapproximated Surrounding Tissue Dark Red Edematous Topical Solution/Irrigant Dakins Irrigant Packing Type Gauze Roll Primary Dressing Absorbant Pad Secondary Dressing mesh panties holding dressing in place at this time Comment . Wound Photo Photo Taken No Final Diagnosis/Problem List - Final Discharge Diagnosis/Problem (1) Perianal abscess Current Visit: Yes Status: Acute Code(s): K61.0 - ANAL ABSCESS (2) Uncontrolled diabetes mellitus Current Visit: No Status: Chronic Code(s): E11.65 - TYPE 2 DIABETES MELLITUS WITH HYPERGLYCEMIA (3) History of CHF (congestive heart failure) Current Visit: Yes Status: Acute Code(s): Z86.79 - PERSONAL HISTORY OF OTHER DISEASES OF THE CIRCULATORY SYSTEM (4) Chronic pain syndrome Current Visit: No Status: Chronic Code(s): G89.4 - CHRONIC PAIN SYNDROME - Discharge Disposition: Skilled Care @ [facility] Condition: Stable Prescriptions: New Loperamide HCl 2 mg [Imodium 2 mg] 2 mg PO PRN PRN #30 capsule PRN Reason: Diarrhea Oxycodone/APAP 5 mg/325 mg [Percocet Tablet 5/325Mg] 1 tab PO Q4H PRN PRN #120 tablet MDD 6 PRN Reason: Pain Linezolid [Zyvox] 600 mg PO BID #14 tablet Continue Polyethylene Glycol 3350 17 gm [Miralax Powder 17GM PACKET] 17 gm PO UD PRN PRN Reason: Constipation Nitroglycerin 0.4 mg Tablet [Nitrostat 0.4 MG Tablet] 0.4 mg SL Q5MIN PRN MR X 3 PRN PRN Reason: Chest Pain Cholecalciferol (Vitamin D3) [Vitamin D3] 2,000 unit PO UD Bumetanide [Bumex] 4 mg PO DAILY Montelukast Sodium 25 mg PO DAILY Budesonide/Formoterol Fumarate [Symbicort 160-4.5 Mcg Inhaler] 2 puff IH BID Fenofibrate 160 mg PO DAILY Potassium Chloride 20 Meq [Klor-Con 20 MEQ] 20 meq PO DAILY PANTOPRAZOLE 40 mg Tablet [Protonix 40MG Tablet] 40 mg PO DAILY Divalproex Sodium [Divalproex Sodium ER] 500 mg PO BID Rosuvastatin Calcium [Crestor] 40 mg PO DAILY Albuterol Sulfate [Proair Hfa] 2 puffs IH QID Albuterol 2.5 mg/3 ml Neb [Proventil 2.5 mg/3 ml Neb] 1 ea IH QID PRN PRN PRN Reason: Shortness Of Breath/Wheezing Verapamil HCl [Verapamil ER] 240 mg PO DAILY #30 tablet.er Levothyroxine Sodium 112 Mcg [Synthroid 112 Mcg] 112 mcg PO DAILY Ondansetron [Ondansetron Odt] 4 mg PO Q6-8HPRN PRN #20 tab.rapdis PRN Reason: Nausea/Vomiting Fluticasone Propionate [Flonase NASAL] 2 sprays .ROUTE BID Famotidine [Pepcid] 40 mg PO BID PRN Magnesium Oxide 400 mg [Mag-Ox 400] 400 mg PO TID Ondansetron HCl [Zofran] 4 mg PO Q6H Ranitidine HCl [Zantac] 300 mg PO DAILY Lisinopril 10 mg [Zestril 10 MG] 10 mg PO DAILY Diphenhydramine HCl 25 mg [Benadryl 25 mg Capsule] 25 mg PO Q4H PRN PRN PRN Reason: Allergies Insulin Glargine,Hum.rec.anlog [Basaglar Kwikpen U-100] 50 units SQ TID Insulin Regular, Human [Humulin R U-500 Kwikpen] 30 units SQ TID #0 Discontinued Hydrocodone Bit/Acetaminophen [Hydrocodon-Acetaminophen 5-325] 1 tab PO Q6H PRN PRN Reason: Pain
[2019-08-24] MEDS: NON-FORMULARY ITEM TP SCH (12:06)
[2019-08-24 12:16] VITALS: BP 126/98; PULSE 84
== END 2019-08-24 13:15 | DRG 395 ==
LOC: MED SURG 13:59
PROVIDERS: ADMIT Internal Medicine; ATTEND Internal Medicine
PROC: 0HBAXZZ Excision of Inguinal Skin, External Approach (ICD-10-PCS; principal; 2019-08-18)
PROC: 02HV33Z Insertion of Infusion Device into Superior Vena Cava, Percutaneous Approach (ICD-10-PCS; 2019-08-20)
DX: K61.0 Anal abscess (principal); E11.65 Type 2 diabetes mellitus with hyperglycemia; G89.4 Chronic pain syndrome; K59.00 Constipation, unspecified; R19.7 Diarrhea, unspecified; E03.9 Hypothyroidism, unspecified; Z79.899 Other long term (current) drug therapy; Z86.79 Personal history of other diseases of the circulatory system
CPT/HCPCS: 11000; 36415; 36573; 71046; 72192; 76937; 77001; 80048; 80053; 80061; 80202; 81001; 82306; 82962; 83036; 83605; 83721; 83735; 84134; 84484; 85025; 85027; 87040; 87070; 87077; 87086; 87186; 93005; 94760; 97161; G0283; 00904; 88304; 97014; C1769; J1100; J1170; J1642; J1644; J1817; J2020; J2405; J2704; J3010; Q0162; A9270-GY; J3370

== ENCOUNTER 2019-11-05 17:50 | Emergency (ER) | payer MEDICARE ==
[2019-11-05 18:08] VITALS: BP 146/70; PULSE 84; O2SAT 99
--- NOTE | 2019-11-05 18:16 | ERPHSYRPT ---
- History of Present Illness Time Seen by Provider: 11/05/19 18:10 Source: patient Exam Limitations: no limitations Patient Subjective Stated Complaint: Pt states "About 3 days ago I woke up and my pillow was drenched with drainage. I have a sore on the outside of my ear and it is swollen and it hurts in my face and jaw and ear." Triage Nursing Assessment: Pt presneted alert and oriented X 3, skin pwd Pt ambualtes with a slow shuffling gait. Pt right ear red, swollen. Pt able to speak in clear full sentences. Physician History: Patient has had pain in the right ear for 3 days and noticed drainage from the ear onto her pillow. The ear hurts to move tragus is tender Timing/Duration: gradual onset Severity: moderate ENT Location: ear (R) Prearrival Treatment: no prearrival treatment Associated Symptoms: ear pain (R), ear drainage Allergies/Adverse Reactions: adhesive Allergy (Intermediate, Verified 08/15/19 09:14) Rash ciprofloxacin HCl [From Cipro] Allergy (Intermediate, Verified 08/15/19 09:14) Rash gatifloxacin [From Tequin] Allergy (Intermediate, Verified 08/15/19 09:14) Rash levofloxacin [From Levaquin] Allergy (Intermediate, Verified 08/15/19 09:14) Rash aspirin Allergy (Verified 08/15/19 09:14) bupropion HCl [From Wellbutrin] Allergy (Verified 08/15/19 09:14) carisoprodol [From Soma] Allergy (Verified 08/15/19 09:14) cefaclor [From Ceclor] Allergy (Verified 08/15/19 09:14) ceftibuten dihydrate [From Cedax] Allergy (Verified 08/15/19 09:14) cephalexin monohydrate [From Keflex] Allergy (Verified 08/15/19 09:14) clarithromycin [From Biaxin] Allergy (Verified 08/15/19 09:14) clotrimazole [From Lotrimin] Allergy (Verified 08/15/19 09:14) codeine [Codeine] Allergy (Verified 08/15/19 09:14) erythromycin base [Erythromycin Base] Allergy (Verified 08/15/19 09:14) ketorolac tromethamine [From Toradol] Allergy (Verified 08/15/19 09:14) loracarbef [From Lorabid] Allergy (Verified 08/15/19 09:14) meperidine HCl [From Demerol] Allergy (Verified 08/15/19 09:14) morphine Allergy (Verified 08/15/19 09:14) Norgestimate-Ethi *RETIRED-07/08/12 [From Ortho Tri-Cyclen (21)] Allergy (Verified 08/15/19 09:14) Penicillins Allergy (Verified 08/15/19 09:14) prochlorperazine edisylate [From Compazine] Allergy (Verified 08/15/19 09:14) promethazine [From Phenergan] Allergy (Verified 08/15/19 09:14) Hives promethazine HCl [From Phenergan] Allergy (Verified 08/15/19 09:14) Sulfa (Sulfonamide Antibiotics) [Sulfa(Sulfonamide Antibiotics)] Allergy (Verified 08/15/19 09:14) sumatriptan [From Imitrex] Allergy (Verified 08/15/19 09:14) melon Adverse Reaction (Verified 08/15/19 09:14) Home Medications: Budesonide/Formoterol Fumarate [Symbicort 160-4.5 Mcg Inhaler] 2 puff IH BID 10/10/15 [History] Bumetanide [Bumex] 4 mg PO DAILY 10/10/15 [History] Cholecalciferol (Vitamin D3) [Vitamin D3] 2,000 unit PO UD 10/10/15 [History] Fenofibrate 160 mg PO DAILY 10/10/15 [History] Montelukast Sodium 25 mg PO DAILY 10/10/15 [History] Nitroglycerin 0.4 mg Tablet [Nitrostat 0.4 MG Tablet] 0.4 mg SL Q5MIN PRN MR X 3 PRN 10/10/15 [History] PANTOPRAZOLE 40 mg Tablet [Protonix 40MG Tablet] 40 mg PO DAILY 10/10/15 [History] Polyethylene Glycol 3350 17 gm [Miralax Powder 17GM PACKET] 17 gm PO UD PRN 10/10/15 [History] Potassium Chloride 20 Meq [Klor-Con 20 MEQ] 20 meq PO DAILY 10/10/15 [History] Divalproex Sodium [Divalproex Sodium ER] 500 mg PO BID 03/06/16 [History] Albuterol 2.5 mg/3 ml Neb [Proventil 2.5 mg/3 ml Neb] 1 ea IH QID PRN PRN 07/08/18 [History] Albuterol Sulfate [Proair Hfa] 2 puffs IH QID 07/08/18 [History] Rosuvastatin Calcium [Crestor] 40 mg PO DAILY 07/08/18 [History] Levothyroxine Sodium 112 Mcg [Synthroid 112 Mcg] 112 mcg PO DAILY 07/28/18 [History] Famotidine [Pepcid] 40 mg PO BID PRN 07/18/19 [History] Fluticasone Propionate [Flonase NASAL] 2 sprays .ROUTE BID 07/18/19 [History] Diphenhydramine HCl 25 mg [Benadryl 25 mg Capsule] 25 mg PO Q4H PRN PRN 08/17/19 [History] Insulin Glargine,Hum.rec.anlog [Basaglar Kwikpen U-100] 50 units SQ TID 08/17/19 [History] Lisinopril 10 mg [Zestril 10 MG] 10 mg PO DAILY 08/17/19 [History] Magnesium Oxide 400 mg [Mag-Ox 400] 400 mg PO TID 08/17/19 [History] Ondansetron HCl [Zofran] 4 mg PO Q6H 08/17/19 [History] Ranitidine HCl [Zantac] 300 mg PO DAILY 08/17/19 [History] Hx Tetanus, Diphtheria Vaccination/Date Given: Yes Hx Influenza Vaccination/Date Given: No Hx Pneumococcal Vaccination/Date Given: No Immunizations Up to Date: Yes Travel Risk - International Travel Have you traveled outside of the country in past 3 weeks: No - Coronavirus Screening Are you exhibiting any of the following symptoms?: No Close contact with a COVID-19 positive Pt in past 14-21 Days: No - Review of Systems Constitutional: No Fever, No Chills Eyes: No Symptoms Ears, Nose, & Throat: Ear Pain, Ear Discharge Respiratory: No Cough, No Dyspnea Cardiac: No Chest Pain, No Edema, No Syncope Abdominal/Gastrointestinal: No Abdominal Pain, No Nausea, No Vomiting, No Diarrhea Genitourinary Symptoms: No Dysuria Musculoskeletal: No Back Pain, No Neck Pain Skin: No Rash Neurological: No Dizziness, No Focal Weakness, No Sensory Changes Psychological: No Symptoms Endocrine: No Symptoms All Other Systems: Reviewed and Negative - Past Medical History Pertinent Past Medical History: Yes Neurological History: Migraines ENT History: Cataracts Cardiac History: Arrhythmia, Congestive Heart Failure, Hypertension Respiratory History: Asthma, CHF, COPD, Sleep Apnea Endocrine Medical History: Diabetes Type II, Hyperthyroidism Musculoskeletal History: Arthritis, Fibromyalgia, Fractures GI Medical History: GERD, Irritable Bowel History: Other Psycho-Social History: Anxiety, Bipolar, Depression Female Reproductive Disorders: No Pertinent History Other Medical History: 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 lt shoulder, spinal block - Social History Smoking Status: Current every day smoker How long have you smoked: years Exposure to second hand smoke: Yes Drug Use: none Patient Lives Alone: No Significant Family History: no pertinent family hx - Female History Hx Now: No - Nursing Vital Signs Nursing Vital Signs: Initial Vital Signs Temperature 98.2 F 11/05/19 18:02 Pulse Rate 84 11/05/19 18:02 Respiratory Rate 20 11/05/19 18:02 Blood Pressure 146/70 11/05/19 18:02 O2 Sat by Pulse Oximetry 99 11/05/19 18:02 Pain Scale Pain Intensity 8 - Physical Exam General Appearance: no apparent distress, alert Eye Exam: bilateral eye: PERRL, EOMI Ear Exam: left ear: swelling (Tragus is tender canal is edematous), tenderness Nasal Exam: normal inspection Throat Exam: pharynx normal, moist mucus membranes, No tonsillar exudate Neck Exam: supple Cardiovascular/Respiratory Exam: normal breath sounds, regular rate/rhythm Abdominal Exam: non-tender, soft Neurologic Exam: alert, 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, sensation nml, No motor deficits Skin Exam: normal color, warm, dry SpO2: 99 - Course Nursing assessment & vital signs reviewed: Yes - Progress Progress: unchanged - Departure Departure Disposition: Home Clinical Impression: Otitis externa Condition: Stable Critical Care Time: No Referrals: VAIBHAV CHURCHILL MD [Primary Care Provider] - Instructions: Outer Ear Infection (DC) Prescriptions: Hydroxyzine HCl 25 mg [Atarax 25 mg] 25 mg PO Q6H PRN #12 tablet PRN Reason: Itching clindamycin HCL [Cleocin HCl] 300 mg PO TID 10 Days #30 capsule Rebel/Baci/Poly/Hc Ear Susp [Cortisporin Ear Drops 10 ml Suspension] 10 ml OT TID 7 Days #1 bottle Fluconazole [Diflucan] 200 mg PO DAILY 7 Days #7 tablet
== END 2019-11-05 18:32 | disposition home or self-care (01) ==
LOC: ED 17:50
DX: H60.92 Unspecified otitis externa, left ear (principal)
CPT/HCPCS: 99283

== ENCOUNTER 2020-01-26 15:21 | Emergency (ER) | payer MEDICARE ==
[2020-01-26] MEDS ORDERED: Hydromorphone 1 mg/ml Injection IM ONE (15:46)
[2020-01-26] MEDS ORDERED: Zofran 4 MG/2 ML VIAL IM ONE (15:47)
[2020-01-26] MEDS ORDERED: Zofran 4 MG/2 ML VIAL ONE (15:49)
[2020-01-26] MEDS ORDERED: Hydromorphone 1 mg/ml Injection ONE (15:49)
--- NOTE | 2020-01-26 15:56 | ERPHSYRPT ---
- History of Present Illness Source: patient Exam Limitations: no limitations Patient Subjective Stated Complaint: migraine x 20 mins Triage Nursing Assessment: Pt to ED with c/o migraine x 20 minutes. Has hx of migraines. Pt is A & Ox3, PERRLA. Denies numbness tingling. Pain radiates from front of forehead to back of head. NSR noted on monitor. Skin PWD. Pt dry heaving. Pt wearing sunglasses to reduce discomfort. Physician History: Patient is a 54-year-old female who presents with headache. Patient was just at her doctors appointment where she started getting a mild headache which progressed to become more severe. Patient was going to take her usual transport van home but decided that her home remedy was not going to take care of this headache. Patient having some complaints of nausea and a little bit of upset stomach due to the headache. Patient states this is similar to her previous migraine headaches and has been treated in our ER many times. It usually frontal and does radiate to the occipital area. Sudden onset headache about 30 minutes ago. Not the worst headache in her life. Timing/Duration: sudden Quality: throbbing Head Pain Location: frontal, occipital Severity of Pain-Max: severe Severity of Pain-Current: moderate Recent Head Trauma: chronic headaches Modifying Factors: Improves With: exposure to light Associated Symptoms: nausea/vomiting, sensitive to light Previous symptoms: same symptoms as today, recently treated Allergies/Adverse Reactions: adhesive Allergy (Intermediate, Verified 01/26/20 15:40) Rash ciprofloxacin HCl [From Cipro] Allergy (Intermediate, Verified 01/26/20 15:40) Rash gatifloxacin [From Tequin] Allergy (Intermediate, Verified 01/26/20 15:40) Rash levofloxacin [From Levaquin] Allergy (Intermediate, Verified 01/26/20 15:40) Rash aspirin Allergy (Verified 01/26/20 15:40) bupropion HCl [From Wellbutrin] Allergy (Verified 01/26/20 15:40) carisoprodol [From Soma] Allergy (Verified 01/26/20 15:40) cefaclor [From Ceclor] Allergy (Verified 01/26/20 15:40) ceftibuten dihydrate [From Cedax] Allergy (Verified 01/26/20 15:40) cephalexin monohydrate [From Keflex] Allergy (Verified 01/26/20 15:40) clarithromycin [From Biaxin] Allergy (Verified 01/26/20 15:40) clotrimazole [From Lotrimin] Allergy (Verified 01/26/20 15:40) codeine [Codeine] Allergy (Verified 01/26/20 15:40) erythromycin base [Erythromycin Base] Allergy (Verified 01/26/20 15:40) ketorolac tromethamine [From Toradol] Allergy (Verified 01/26/20 15:40) loracarbef [From Lorabid] Allergy (Verified 01/26/20 15:40) meperidine HCl [From Demerol] Allergy (Verified 01/26/20 15:40) morphine Allergy (Verified 01/26/20 15:40) Norgestimate-Ethi *RETIRED-07/08/12 [From Ortho Tri-Cyclen (21)] Allergy (Verified 01/26/20 15:40) Penicillins Allergy (Verified 01/26/20 15:40) prochlorperazine edisylate [From Compazine] Allergy (Verified 01/26/20 15:40) promethazine [From Phenergan] Allergy (Verified 01/26/20 15:40) Hives promethazine HCl [From Phenergan] Allergy (Verified 01/26/20 15:40) Sulfa (Sulfonamide Antibiotics) [Sulfa(Sulfonamide Antibiotics)] Allergy (Verified 01/26/20 15:40) sumatriptan [From Imitrex] Allergy (Verified 01/26/20 15:40) melon Adverse Reaction (Verified 08/15/19 09:14) Home Medications: Budesonide/Formoterol Fumarate [Symbicort 160-4.5 Mcg Inhaler] 2 puff IH BID [History] Bumetanide [Bumex] 4 mg PO DAILY 10/10/15 [History] Cholecalciferol (Vitamin D3) [Vitamin D3] 2,000 unit PO UD 10/10/15 [History] Fenofibrate 160 mg PO DAILY 10/10/15 [History] Montelukast Sodium 25 mg PO DAILY 10/10/15 [History] Nitroglycerin 0.4 mg Tablet [Nitrostat 0.4 MG Tablet] 0.4 mg SL Q5MIN PRN MR X 3 PRN 10/10/15 [History] PANTOPRAZOLE 40 mg Tablet [Protonix 40MG Tablet] 40 mg PO DAILY 10/10/15 [History] Polyethylene Glycol 3350 17 gm [Miralax Powder 17GM PACKET] 17 gm PO UD PRN 10/10/15 [History] Potassium Chloride 20 Meq [Klor-Con 20 MEQ] 20 meq PO DAILY 10/10/15 [History] Divalproex Sodium [Divalproex Sodium ER] 500 mg PO BID 03/06/16 [History] Albuterol 2.5 mg/3 ml Neb [Proventil 2.5 mg/3 ml Neb] 1 ea IH QID PRN PRN 07/08/18 [History] Albuterol Sulfate [Proair Hfa] 2 puffs IH QID 07/08/18 [History] Rosuvastatin Calcium [Crestor] 40 mg PO DAILY 07/08/18 [History] Levothyroxine Sodium 112 Mcg [Synthroid 112 Mcg] 112 mcg PO DAILY 07/28/18 [History] Famotidine [Pepcid] 40 mg PO BID PRN 07/18/19 [History] Fluticasone Propionate [Flonase NASAL] 2 sprays .ROUTE BID 07/18/19 [History] Diphenhydramine HCl 25 mg [Benadryl 25 mg Capsule] 25 mg PO Q4H PRN PRN 08/17/19 [History] Insulin Glargine,Hum.rec.anlog [Basaglar Kwikpen U-100] 50 units SQ TID 08/17/19 [History] Lisinopril 10 mg [Zestril 10 MG] 20 mg PO DAILY 08/17/19 [History] Magnesium Oxide 400 mg [Mag-Ox 400] 400 mg PO TID 08/17/19 [History] Ondansetron HCl [Zofran] 4 mg PO Q6H 08/17/19 [History] Ranitidine HCl [Zantac] 300 mg PO DAILY 08/17/19 [History] Hx Tetanus, Diphtheria Vaccination/Date Given: No Hx Influenza Vaccination/Date Given: Yes Hx Pneumococcal Vaccination/Date Given: No Travel Risk - International Travel Have you traveled outside of the country in past 3 weeks: No - Coronavirus Screening Are you exhibiting any of the following symptoms?: No Close contact with a COVID-19 positive Pt in past 14-21 Days: No - Review of Systems Constitutional: No Fever, No Chills Eyes: No Symptoms Ears, Nose, & Throat: No Symptoms Respiratory: No Cough, No Dyspnea Cardiac: No Chest Pain, No Edema, No Syncope Abdominal/Gastrointestinal: Abdominal Pain, Nausea, No Vomiting, No Diarrhea Genitourinary Symptoms: No Dysuria Musculoskeletal: No Back Pain, No Neck Pain Skin: No Rash Neurological: Headache, No Dizziness, No Focal Weakness, No Sensory Changes Psychological: No Symptoms Endocrine: No Symptoms All Other Systems: Reviewed and Negative - Past Medical History Pertinent Past Medical History: Yes Neurological History: Migraines ENT History: Cataracts Cardiac History: Arrhythmia, Congestive Heart Failure, Other Respiratory History: Asthma, Bronchitis, COPD, Sleep Apnea Endocrine Medical History: Diabetes Type II, Hyperthyroidism Musculoskeletal History: Fibromyalgia, Osteoarthritis GI Medical History: GERD, Irritable Bowel History: Other Psycho-Social History: Anxiety, Bipolar, Depression Female Reproductive Disorders: No Pertinent History Other Medical History: 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 lt shoulder, spinal block - Social History Smoking Status: Current every day smoker How long have you smoked: 40 Exposure to second hand smoke: No Drug Use: none Patient Lives Alone: No Significant Family History: no pertinent family hx - Female History Hx Now: (hysterectomy) - Nursing Vital Signs Nursing Vital Signs: Initial Vital Signs Temperature 98.0 F 01/26/20 15:29 Pulse Rate 85 01/26/20 15:29 Respiratory Rate 16 01/26/20 15:29 Blood Pressure 178/96 01/26/20 15:29 O2 Sat by Pulse Oximetry 99 01/26/20 15:29 Pain Scale Pain Intensity 8 - Physical Exam General Appearance: no apparent distress Eye Exam: PERRL/EOMI Ears, Nose, Throat Exam: normal ENT inspection, moist mucous membranes Neck Exam: normal inspection, supple, full range of motion, No meningismus Respiratory Exam: normal breath sounds, lungs clear Cardiovascular Exam: regular rate/rhythm, normal heart sounds Gastrointestinal/Abdominal Exam: soft, No tenderness, No distention Back Exam: normal inspection, 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 of motion 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, 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, 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 Exam: normal speech, PERRL, No facial droop Coordination/Gait Exam: normal cerebellar function Motor/Sensory Exam: no motor deficit, no sensory deficit Skin Exam: normal color, warm, dry, No rash SpO2 Interpretation: normal SpO2: 99 - Course Nursing assessment & vital signs reviewed: Yes Ordered Tests: Medication Summary Discontinued Medications Generic Name Dose Route Start Last Admin Trade Name Bety PRN Reason Stop Dose Admin Hydromorphone HCl 2 mg 01/26/20 15:46 Hydromorphone 1 Mg/Ml Injection IM 01/26/20 15:47 STAT ONE Hydromorphone HCl Confirm 01/26/20 15:49 Hydromorphone 1 Mg/Ml Injection Administered 01/26/20 15:50 Dose 2 mg .ROUTE .STK-MED ONE Ondansetron HCl 4 mg 01/26/20 15:47 Zofran 4 Mg/2 Ml Vial IM 01/26/20 15:48 STAT ONE Ondansetron HCl Confirm 01/26/20 15:49 Zofran 4 Mg/2 Ml Vial Administered 01/26/20 15:50 Dose 4 mg .ROUTE .STK-MED ONE - Progress Progress: improved Air Movement: good Progress Note: 01/26/20 15:55 Describing symptoms similar to her chronic migraine headache. I did not feel any work-up was warranted at this time. Her vital signs seems to be pretty stable except for slightly elevated blood pressure. Otherwise patient is talking and is alert and in minimal distress. Nontoxic-appearing. Looking at her previous medical records, patient did well on IM of Dilaudid and Zofran. Same meds given today. Will DC home. Blood Culture(s) Obtained: No Antibiotics given: No Counseled pt/family regarding: diagnosis, need for follow-up - Departure Departure Disposition: Home Clinical Impression: Migraine headache Condition: Stable Critical Care Time: No Referrals: VAIBHAV CHURCHILL MD [Primary Care Provider] - Instructions: Headache, Adult (DC) Additional Instructions: Monitor symptoms closely. Go home and rest and perhaps sleep it off. Continue with your home medication should the headache return. Follow-up with your PCP or neurologist should headache persist. Return to ER if worse.
[2020-01-26 16:13] VITALS: BP 163/83; PULSE 84; O2SAT 98
== END 2020-01-26 16:16 | disposition home or self-care (01) ==
LOC: ED 15:21
DX: G43.909 Migraine, unspecified, not intractable, without status migrainosus (principal); R10.9 Unspecified abdominal pain; R11.0 Nausea; I50.9 Heart failure, unspecified; J44.9 Chronic obstructive pulmonary disease, unspecified; E11.9 Type 2 diabetes mellitus without complications; E78.5 Hyperlipidemia, unspecified; Z79.899 Other long term (current) drug therapy
CPT/HCPCS: 96372; 99284; J1170; J2405

== ENCOUNTER 2020-03-31 20:24 | Emergency (ER) | payer MEDICARE ==
--- NOTE | 2020-03-31 20:30 | ERPHSYRPT ---
- History of Present Illness Time Seen by Provider: 03/31/20 20:30 Source: patient Exam Limitations: no limitations Physician History: This is a 54-year-old white female has a history of hypertension and chronic recurrent migraine headaches and presents with 4 to 5-day history of her typical migraine headache with light sensitivity. Patient states that she used to get 30-40 migraine headache episodes a month prior to her being placed on Topamax and amovig 1 year ago. Patient now experiences only 10-20 migraine headaches a month. Patient denies trauma to her head. Patient used all of her medications to help combat an acute migraine but they did not work. Quality: aching, pressure Head Pain Location: global Severity of Pain-Max: moderate Severity of Pain-Current: moderate Recent Head Trauma: no recent headache/trauma, frequent headaches, chronic headaches Modifying Factors: Improves With: exposure to light, noise Associated Symptoms: denies symptoms Previous symptoms: same symptoms as today Allergies/Adverse Reactions: adhesive Allergy (Intermediate, Verified 03/31/20 20:42) Rash ciprofloxacin HCl [From Cipro] Allergy (Intermediate, Verified 03/31/20 20:42) Rash gatifloxacin [From Tequin] Allergy (Intermediate, Verified 03/31/20 20:42) Rash levofloxacin [From Levaquin] Allergy (Intermediate, Verified 03/31/20 20:42) Rash aspirin Allergy (Verified 03/31/20 20:42) bupropion HCl [From Wellbutrin] Allergy (Verified 03/31/20 20:42) carisoprodol [From Soma] Allergy (Verified 03/31/20 20:42) cefaclor [From Ceclor] Allergy (Verified 03/31/20 20:42) ceftibuten dihydrate [From Cedax] Allergy (Verified 03/31/20 20:42) cephalexin monohydrate [From Keflex] Allergy (Verified 03/31/20 20:42) clarithromycin [From Biaxin] Allergy (Verified 03/31/20 20:42) clotrimazole [From Lotrimin] Allergy (Verified 03/31/20 20:42) codeine [Codeine] Allergy (Verified 03/31/20 20:42) erythromycin base [Erythromycin Base] Allergy (Verified 03/31/20 20:42) ketorolac tromethamine [From Toradol] Allergy (Verified 03/31/20 20:42) loracarbef [From Lorabid] Allergy (Verified 03/31/20 20:42) meperidine HCl [From Demerol] Allergy (Verified 03/31/20 20:42) morphine Allergy (Verified 03/31/20 20:42) Norgestimate-Ethi *RETIRED-07/08/12 [From Ortho Tri-Cyclen (21)] Allergy (Verified 03/31/20 20:42) Penicillins Allergy (Verified 03/31/20 20:42) prochlorperazine edisylate [From Compazine] Allergy (Verified 03/31/20 20:42) promethazine [From Phenergan] Allergy (Verified 03/31/20 20:42) Hives promethazine HCl [From Phenergan] Allergy (Verified 03/31/20 20:42) Sulfa (Sulfonamide Antibiotics) [Sulfa(Sulfonamide Antibiotics)] Allergy (Verified 03/31/20 20:42) sumatriptan [From Imitrex] Allergy (Verified 03/31/20 20:42) melon Adverse Reaction (Verified 03/31/20 20:42) Home Medications: Budesonide/Formoterol Fumarate [Symbicort 160-4.5 Mcg Inhaler] 2 puff IH BID 10/10/15 [History] Bumetanide [Bumex] 4 mg PO DAILY 10/10/15 [History] Cholecalciferol (Vitamin D3) [Vitamin D3] 2,000 unit PO UD 10/10/15 [History] Fenofibrate 160 mg PO DAILY 10/10/15 [History] Montelukast Sodium 25 mg PO DAILY 10/10/15 [History] Nitroglycerin 0.4 mg Tablet [Nitrostat 0.4 MG Tablet] 0.4 mg SL Q5MIN PRN MR X 3 PRN 10/10/15 [History] PANTOPRAZOLE 40 mg Tablet [Protonix 40MG Tablet] 40 mg PO DAILY 10/10/15 [History] Polyethylene Glycol 3350 17 gm [Miralax Powder 17GM PACKET] 17 gm PO UD PRN 10/10/15 [History] Potassium Chloride 20 Meq [Klor-Con 20 MEQ] 20 meq PO DAILY 10/10/15 [History] Divalproex Sodium [Divalproex Sodium ER] 500 mg PO BID 03/06/16 [History] Albuterol 2.5 mg/3 ml Neb [Proventil 2.5 mg/3 ml Neb] 1 ea IH QID PRN PRN 07/08/18 [History] Albuterol Sulfate [Proair Hfa] 2 puffs IH QID 07/08/18 [History] Rosuvastatin Calcium [Crestor] 40 mg PO DAILY 07/08/18 [History] Levothyroxine Sodium 112 Mcg [Synthroid 112 Mcg] 212 mcg PO DAILY 07/28/18 [History] Famotidine [Pepcid] 40 mg PO BID 07/18/19 [History] Fluticasone Propionate [Flonase NASAL] 2 sprays .ROUTE BID 07/18/19 [History] Diphenhydramine HCl 25 mg [Benadryl 25 mg Capsule] 25 mg PO Q4H PRN PRN 08/17/19 [History] Lisinopril 10 mg [Zestril 10 MG] 20 mg PO DAILY 08/17/19 [History] Magnesium Oxide 400 mg [Mag-Ox 400] 400 mg PO TID 08/17/19 [History] Cyclobenzaprine HCl 10 mg [Cyclobenzaprine 10 MG] 10 mg PO HS 03/31/20 [History] Erenumab-Aooe [Aimovig Autoinjector] 140 mg SQ UD 03/31/20 [History] Hydrocodone/APAP 5-325 Tab^^^ [[place] 5-325 Tablet^^^] 1 each PO QID MDD 6 03/31/20 [History] Insulin Degludec [Tresiba] 50 unit SQ TID 03/31/20 [History] Lubiprostone [Amitiza] 24 mcg PO DAILY 03/31/20 [History] Topiramate [Topamax] 50 mg PO BID 03/31/20 [History] Hx Tetanus, Diphtheria Vaccination/Date Given: No Hx Influenza Vaccination/Date Given: Yes Hx Pneumococcal Vaccination/Date Given: No Travel Risk - International Travel Have you traveled outside of the country in past 3 weeks: No - Coronavirus Screening Are you exhibiting any of the following symptoms?: No Close contact with a COVID-19 positive Pt in past 14-21 Days: No - Review of Systems Constitutional: No Symptoms Eyes: No Symptoms Ears, Nose, & Throat: No Symptoms Respiratory: No Symptoms Cardiac: No Symptoms Abdominal/Gastrointestinal: No Symptoms Genitourinary Symptoms: No Symptoms Musculoskeletal: No Symptoms Skin: No Symptoms Neurological: No Symptoms, Headache Psychological: No Symptoms Endocrine: No Symptoms Hematologic/Lymphatic: No Symptoms Immunological/Allergic: No Symptoms All Other Systems: Reviewed and Negative - Past Medical History Pertinent Past Medical History: Yes Neurological History: Migraines ENT History: Cataracts Cardiac History: Arrhythmia, Congestive Heart Failure, Other Respiratory History: Asthma, Bronchitis, COPD, Sleep Apnea Endocrine Medical History: Diabetes Type II, Hyperthyroidism Musculoskeletal History: Fibromyalgia, Osteoarthritis GI Medical History: GERD, Irritable Bowel History: Other Psycho-Social History: Anxiety, Bipolar, Depression Female Reproductive Disorders: No Pertinent History Other Medical History: 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 lt shoulder, spinal block - Social History Smoking Status: Current every day smoker How long have you smoked: 40 Exposure to second hand smoke: No Drug Use: none Patient Lives Alone: No Significant Family History: no pertinent family hx - Nursing Vital Signs Nursing Vital Signs: Initial Vital Signs Temperature 98.6 F 03/31/20 20:28 Pulse Rate 93 H 03/31/20 20:28 Respiratory Rate 16 03/31/20 20:28 Blood Pressure 175/77 03/31/20 20:28 O2 Sat by Pulse Oximetry 97 03/31/20 20:28 Pain Scale Pain Intensity 8 - Physical Exam General Appearance: mild distress, alert, anxiety, obese Eye Exam: PERRL/EOMI, eyes nml inspection Ears, Nose, Throat Exam: normal ENT inspection, moist mucous membranes Neck Exam: normal inspection, non-tender, supple, full range of motion Respiratory Exam: normal breath sounds, lungs clear, airway intact, No chest ten derness, No respiratory distress Cardiovascular Exam: regular rate/rhythm, normal heart sounds, normal peripheral pulses Gastrointestinal/Abdominal Exam: soft, normal bowel sounds, No tenderness Back Exam: normal inspection, 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 of motion, No CVA tenderness, No vertebral tenderness 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, 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, 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 Exam: normal hearing, normal speech, PERRL, tongue midline Coordination/Gait Exam: normal gait, normal cerebellar function Motor/Sensory Exam: no motor deficit, no sensory deficit, no pronator drift Skin Exam: normal color, warm, dry Lymphatic Exam: No adenopathy SpO2 Interpretation: normal O2 Delivery: Room Air - Course Nursing assessment & vital signs reviewed: Yes Ordered Tests: Active Orders 24 hr Category Date Time Status POCT GLUCOSE Stat Lab 03/31/20 20:55 Completed Medication Summary Discontinued Medications Generic Name Dose Route Start Last Admin Trade Name Freq PRN Reason Stop Dose Admin Hydromorphone HCl 1 mg 03/31/20 21:05 Hydromorphone 1 Mg/Ml Injection IM 03/31/20 21:06 STAT ONE Ondansetron HCl 4 mg 03/31/20 21:06 Zofran Odt 4 Mg PO 03/31/20 21:07 STAT ONE Lab/Rad Data: Laboratory Results 03/31/20 Range/Units 20:55 POC Glucometer 429 H (74 to 106) mg/dL - Progress Progress: improved, re-examined Air Movement: good Blood Culture(s) Obtained: No Antibiotics given: No Counseled pt/family regarding: diagnosis, need for follow-up - Departure Departure Disposition: Home Clinical Impression: Migraine headache, Hypertension, Hyperglycemia Condition: Stable Critical Care Time: No Referrals: VAIBHAV CHURCHILL MD [Primary Care Provider] - Additional Instructions: Take your migraine headache medication, antihypertensive medication, and your hyperglycemic agent/medication as prescribed. Follow-up with your prescribing physician for further management and recommendations.
[2020-03-31] MEDS ORDERED: Hydromorphone 1 mg/ml Injection IM ONE (21:05)
[2020-03-31] MEDS ORDERED: ZOFRAN ODT 4 MG PO ONE (21:06)
[2020-03-31] MEDS ORDERED: Hydromorphone 1 mg/ml Injection ONE (21:11)
[2020-03-31] MEDS ORDERED: ZOFRAN ODT 4 MG ONE (21:11)
[2020-03-31 21:49] VITALS: BP 175/89; PULSE 81; O2SAT 95
== END 2020-03-31 21:40 | disposition home or self-care (01) ==
LOC: ED 20:24
DX: G43.909 Migraine, unspecified, not intractable, without status migrainosus (principal); I10 Essential (primary) hypertension; E11.65 Type 2 diabetes mellitus with hyperglycemia; Z79.4 Long term (current) use of insulin; Z79.899 Other long term (current) drug therapy; Z79.891 Long term (current) use of opiate analgesic; I50.9 Heart failure, unspecified; E05.90 Thyrotoxicosis, unspecified without thyrotoxic crisis or storm; M79.7 Fibromyalgia; J44.9 Chronic obstructive pulmonary disease, unspecified
CPT/HCPCS: 82947; 96372; 99284; J1170; Q0162

== ENCOUNTER 2020-05-05 15:25 | Emergency (ER) | payer MEDICARE ==
[2020-05-05] MEDS ORDERED: Zofran 4 MG/2 ML VIAL IV ONE (15:55)
[2020-05-05] MEDS ORDERED: Sodium Chloride 0.9% 1000 ML 1,000 ML IV STA (15:55)
[2020-05-05] MEDS ORDERED: BENADRYL 50 MG/ML IV ONE (15:57)
[2020-05-05] MEDS ORDERED: Zofran 4 MG/2 ML VIAL ONE (16:09)
[2020-05-05] MEDS ORDERED: Haldol 5 MG ONE (16:09)
[2020-05-05] MEDS ORDERED: BENADRYL 50 MG/ML ONE (16:09)
[2020-05-05 16:10] LABS: Hematocrit 38.3 % (35-47); Hemoglobin 12.7 gm/dl (12.0-16.0); Mean Cell Volume 90.8 fl (78-100); Mean Corpuscular Hemoglobin 30.1 pg (26-32); Mean Corpuscular Hgb Concent. 33.2 g/dl (32-36); Mean Platelet Volume 12.6 fl (7.5-11.0); Platelet Count 113 K/mm3 (150-450); Red Blood Count 4.22 M/mm3 (4.1-5.4); Red Cell Distribution Width 13.1 % (11.5-14.0); White Blood Count 3.9 K/mm3 (4.0-10.5)
[2020-05-05] MEDS ORDERED: Sodium Chloride 0.9% 1000 ML 1,000 ML ONE (16:10)
--- NOTE | 2020-05-05 16:13 | ERPHSYRPT ---
- History of Present Illness Time Seen by Provider: 05/05/20 15:27 Source: patient Exam Limitations: no limitations Patient Subjective Stated Complaint: "chronic migraine" Triage Nursing Assessment: pt to ED c/o migraine off and on times 1 week, rates 7/10 that is worse with lights/sounds/smells. reports hx of chronic hereditary migraines that her home medications have not helped. reports some nausea with smells intermittently and currently. A&Ox4, ambulatory with SBA. Physician History: Patient is here with a migraine. Patient states that she has a history of migraines. She states that this is her typical migraine. Nothing new or different. No fever no chills, headache, nausea, red flag symptoms for her leonardo deng. No neurological symptoms, dizziness. Location: headache Quality: dull, aching Radiation: none Severity: moderate Duration: acute on chronic Timing: gradual, not sudden Modifying factors/associated signs and symptoms: home medication Allergies/Adverse Reactions: adhesive Allergy (Intermediate, Verified 05/05/20 15:37) Rash ciprofloxacin HCl [From Cipro] Allergy (Intermediate, Verified 05/05/20 15:37) Rash gatifloxacin [From Tequin] Allergy (Intermediate, Verified 05/05/20 15:37) Rash levofloxacin [From Levaquin] Allergy (Intermediate, Verified 05/05/20 15:37) Rash aspirin Allergy (Verified 05/05/20 15:37) bupropion HCl [From Wellbutrin] Allergy (Verified 05/05/20 15:37) carisoprodol [From Soma] Allergy (Verified 05/05/20 15:37) cefaclor [From Ceclor] Allergy (Verified 05/05/20 15:37) ceftibuten dihydrate [From Cedax] Allergy (Verified 05/05/20 15:37) cephalexin monohydrate [From Keflex] Allergy (Verified 05/05/20 15:37) clarithromycin [From Biaxin] Allergy (Verified 05/05/20 15:37) clotrimazole [From Lotrimin] Allergy (Verified 05/05/20 15:37) codeine [Codeine] Allergy (Verified 05/05/20 15:37) erythromycin base [Erythromycin Base] Allergy (Verified 05/05/20 15:37) ketorolac tromethamine [From Toradol] Allergy (Verified 05/05/20 15:37) loracarbef [From Lorabid] Allergy (Verified 05/05/20 15:37) meperidine HCl [From Demerol] Allergy (Verified 05/05/20 15:37) morphine Allergy (Verified 05/05/20 15:37) Norgestimate-Ethi *RETIRED-07/08/12 [From Ortho Tri-Cyclen (21)] Allergy (Verified 05/05/20 15:37) Penicillins Allergy (Verified 05/05/20 15:37) prochlorperazine edisylate [From Compazine] Allergy (Verified 05/05/20 15:37) promethazine [From Phenergan] Allergy (Verified 05/05/20 15:37) Hives promethazine HCl [From Phenergan] Allergy (Verified 05/05/20 15:37) Sulfa (Sulfonamide Antibiotics) [Sulfa(Sulfonamide Antibiotics)] Allergy (Verified 05/05/20 15:37) sumatriptan [From Imitrex] Allergy (Verified 05/05/20 15:37) melon Adverse Reaction (Verified 05/05/20 15:37) Home Medications: Budesonide/Formoterol Fumarate [Symbicort 160-4.5 Mcg Inhaler] 2 puff IH BID 10/10/15 [History] Bumetanide [Bumex] 4 mg PO DAILY 10/10/15 [History] Cholecalciferol (Vitamin D3) [Vitamin D3] 2,000 unit PO UD 10/10/15 [History] Fenofibrate 160 mg PO DAILY 10/10/15 [History] Montelukast Sodium 25 mg PO DAILY 10/10/15 [History] Nitroglycerin 0.4 mg Tablet [Nitrostat 0.4 MG Tablet] 0.4 mg SL Q5MIN PRN MR X 3 PRN 10/10/15 [History] PANTOPRAZOLE 40 mg Tablet [Protonix 40MG Tablet] 40 mg PO DAILY 10/10/15 [History] Polyethylene Glycol 3350 17 gm [Miralax Powder 17GM PACKET] 17 gm PO UD PRN 10/10/15 [History] Potassium Chloride 20 Meq [Klor-Con 20 MEQ] 20 meq PO DAILY 10/10/15 [History] Divalproex Sodium [Divalproex Sodium ER] 500 mg PO BID 03/06/16 [History] Albuterol 2.5 mg/3 ml Neb [Proventil 2.5 mg/3 ml Neb] 1 ea IH QID PRN PRN 07/08/18 [History] Albuterol Sulfate [Proair Hfa] 2 puffs IH QID 07/08/18 [History] Rosuvastatin Calcium [Crestor] 40 mg PO DAILY 07/08/18 [History] Levothyroxine Sodium 112 Mcg [Synthroid 112 Mcg] 212 mcg PO DAILY 07/28/18 [History] Famotidine [Pepcid] 40 mg PO BID 07/18/19 [History] Fluticasone Propionate [Flonase NASAL] 2 sprays .ROUTE BID 07/18/19 [History] Diphenhydramine HCl 25 mg [Benadryl 25 mg Capsule] 25 mg PO Q4H PRN PRN 08/17/19 [History] Lisinopril 10 mg [Zestril 10 MG] 20 mg PO DAILY 08/17/19 [History] Magnesium Oxide 400 mg [Mag-Ox 400] 400 mg PO TID 08/17/19 [History] Cyclobenzaprine HCl 10 mg [Cyclobenzaprine 10 MG] 10 mg PO HS 03/31/20 [History] Erenumab-Aooe [Aimovig Autoinjector] 140 mg SQ UD 03/31/20 [History] Hydrocodone/APAP 5-325 Tab^^^ [Newberry 5-325 Tablet^^^] 1 each PO QID MDD 6 03/31/20 [History] Insulin Degludec [Tresiba] 50 unit SQ TID 03/31/20 [History] Lubiprostone [Amitiza] 24 mcg PO DAILY 03/31/20 [History] Topiramate [Topamax] 50 mg PO BID 03/31/20 [History] Hx Tetanus, Diphtheria Vaccination/Date Given: No Hx Influenza Vaccination/Date Given: Yes Hx Pneumococcal Vaccination/Date Given: No Travel Risk - International Travel Have you traveled outside of the country in past 3 weeks: No - Coronavirus Screening Are you exhibiting any of the following symptoms?: No Close contact with a COVID-19 positive Pt in past 14-21 Days: No - Review of Systems Constitutional: No Fever, No Chills Eyes: No Symptoms Ears, Nose, & Throat: No Symptoms Respiratory: No Cough, No Dyspnea Cardiac: No Chest Pain, No Edema, No Syncope Abdominal/Gastrointestinal: No Abdominal Pain, No Nausea, No Vomiting, No Diarrhea Genitourinary Symptoms: No Dysuria Musculoskeletal: No Back Pain, No Neck Pain Skin: No Rash Neurological: Headache, No Dizziness, No Focal Weakness, No Sensory Changes Psychological: No Symptoms Endocrine: No Symptoms All Other Systems: Reviewed and Negative - Past Medical History Pertinent Past Medical History: Yes Neurological History: Migraines ENT History: Cataracts Cardiac History: Arrhythmia, Congestive Heart Failure, Other Respiratory History: Asthma, Bronchitis, COPD, Sleep Apnea Endocrine Medical History: Diabetes Type II, Hyperthyroidism Musculoskeletal History: Fibromyalgia, Osteoarthritis GI Medical History: GERD, Irritable Bowel History: Other Psycho-Social History: Anxiety, Bipolar, Depression, Other Female Reproductive Disorders: No Pertinent History Other Medical History: 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 PTSD - Past Surgical History Past Surgical History: Yes Neuro Surgical History: No Pertinent History Cardiac: Cardiac Catheterization Respiratory: No Pertinent History Gastrointestinal: Cholecystectomy Genitourinary: No Pertinent History Musculoskeletal: No Pertinent History Female Surgical History: Hysterectomy Other Surgical History: rt and lt carpal tunnel, trigger finger, tendon on right arm, ulnar nerve surgery, clipped left eye muscle, lt knee. lt shoulder, spinal block - Social History Smoking Status: Current every day smoker How long have you smoked: 40 Exposure to second hand smoke: No Drug Use: none Patient Lives Alone: No Significant Family History: no pertinent family hx - Female History Hx Now: No - Nursing Vital Signs Nursing Vital Signs: Initial Vital Signs Temperature 98.0 F 05/05/20 15:37 Pulse Rate 94 H 05/05/20 15:37 Respiratory Rate 18 05/05/20 15:37 Blood Pressure 175/71 05/05/20 15:37 O2 Sat by Pulse Oximetry 100 05/05/20 15:37 Pain Scale Pain Intensity 6 - Physical Exam General Appearance: no apparent distress, alert Eye Exam: PERRL/EOMI, eyes nml inspection Ears, Nose, Throat Exam: normal ENT inspection, TMs normal, pharynx normal, moist mucous membranes Neck Exam: normal inspection, non-tender, supple, full range of motion Respiratory Exam: normal breath sounds, lungs clear, No respiratory distress Cardiovascular Exam: regular rate/rhythm, normal heart sounds, normal peripheral pulses Gastrointestinal/Abdomen Exam: soft, normal bowel sounds, No tenderness, No mass Back Exam: normal inspection, 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 of motion, No CVA tenderness, No vertebral tenderness Extremity Exam: normal inspection, 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 of motion, pelvis stable Neurologic Exam: alert, 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, cooperative, normal mood/affect, nml cerebellar function, nml station & gait, sensation nml, No motor deficits Skin Exam: normal color, warm, dry, No rash Lymphatic Exam: No adenopathy SpO2 Interpretation: normal SpO2: 100 Comments: 05/05/20 16:13 No obvious deformity, sensation intact, 2+ capillary refill, 2 point tactile discrimination intact. 5 out of 5 strength. Full range of motion without pain. Compartments are soft, nontender. Overlying skin shows no tenting, bruising, ecchymosis. Motor: There is no pronator drift of out-stretched arms. Muscle bulk and tone are normal. Strength is full bilaterally. Reflexes: Reflexes are 2+ and symmetric at the biceps, triceps, knees, and ankles. Plantar responses are flexor. Sensory: Light touch sense are intact in bilateral upper and lower extremities. There is no sign of neglect. Coordination: Rapid alternating movements are intact. There is no dysmetria on [id number] and [id number]. There are no abnormal or extraneous movements. Romberg is absent. Gait/Stance: Posture is normal. Gait is steady with normal steps, base, arm swing, and turning. Heel and toe walking are normal. Tandem gait is normal. - Course Nursing assessment & vital signs reviewed: Yes Ordered Tests: Active Orders 24 hr Category Date Time Status IV Insertion STAT Care 05/05/20 15:55 Active CBC W DIFF Stat Lab 05/05/20 15:55 Completed CMP Stat Lab 05/05/20 16:05 Completed Manual Differential NC Stat Lab 05/05/20 15:55 Completed Medication Summary Generic Name Dose Route Start Last Admin Trade Name Freq PRN Reason Stop Dose Admin Sodium Chloride 1,000 mls @ 999 mls/hr 05/05/20 15:55 05/05/20 16:16 Sodium Chloride 0.9% 1000 Ml IV 05/05/20 16:55 999 mls/hr .Q1H1M STA Administration Discontinued Medications Generic Name Dose Route Start Last Admin Trade Name Bety PRN Reason Stop Dose Admin Diphenhydramine HCl 25 mg 05/05/20 15:57 05/05/20 16:16 Benadryl 50 Mg/Ml IV 05/05/20 15:58 25 mg STAT ONE Administration Diphenhydramine HCl Confirm 05/05/20 16:09 Benadryl 50 Mg/Ml Administered 05/05/20 16:10 Dose 50 mg .ROUTE .STK-MED ONE Haloperidol Lactate 3 mg 05/05/20 15:57 05/05/20 16:24 Haldol 5 Mg IV 05/05/20 15:58 Not Given STAT ONE Haloperidol Lactate Confirm 05/05/20 16:09 Haldol 5 Mg Administered 05/05/20 16:10 Dose 5 mg .ROUTE .STK-MED ONE Sodium Chloride Confirm 05/05/20 16:10 Sodium Chloride 0.9% 1000 Ml Administered 05/05/20 16:11 Dose 1,000 mls @ ud .ROUTE .STK-MED ONE Ondansetron HCl 8 mg 05/05/20 15:55 05/05/20 16:16 Zofran 4 Mg/2 Ml Vial IV 05/05/20 15:56 8 mg STAT ONE Administration Ondansetron HCl Confirm 05/05/20 16:09 Zofran 4 Mg/2 Ml Vial Administered 05/05/20 16:10 Dose 4 mg .ROUTE .STK-MED ONE Lab/Rad Data: Laboratory Result Diagrams 05/05/20 15:55 05/05/20 16:05 Laboratory Results 05/05/20 05/05/20 Range/Units 16:05 15:55 WBC 3.9 L (4.0-10.5) K/mm3 RBC 4.22 (4.1-5.4) M/mm3 Hgb 12.7 (12.0-16.0) gm/dl Hct 38.3 (35-47) % MCV 90.8 (78-100) fl MCH 30.1 (26-32) pg MCHC 33.2 (32-36) g/dl RDW 13.1 (11.5-14.0) % Plt Count 113 L (150-450) K/mm3 MPV 12.6 H (7.5-11.0) fl Absolute Granulocytes 2.08 (1.4-6.9) Segmented Neutrophils 50 (36.0-66.0) % Band Neutrophils 4 H (0.0-2.0) % Lymphocytes (Manual) 37 (24-44) % Monocytes (Manual) 5 (0.0-12.0) % Eosinophils (Manual) 3 (0.00-3.0) % Basophils (Manual) 1 (0.0-1.0) % Platelet Estimate DECREASED (NORMAL) RBC Morphology NORMAL Sodium 131 L (137-145) mmol/L Potassium 4.6 (3.5-5.1) mmol/L Chloride 102 (98-107) mmol/L Carbon Dioxide 19 L (22-30) mmol/L Anion Gap 15.2 H (5-15) MEQ/L BUN 37 H (7-17) mg/dL Creatinine 1.38 H (0.52-1.04) mg/dL Estimated GFR 42.7 ML/MIN Glucose 555 H* (74-106) mg/dL Calcium 9.3 (8.4-10.2) mg/dL Total Bilirubin 0.40 (0.2-1.3) mg/dL AST 26 (14-36) U/L ALT 20 (0-35) U/L Alkaline Phosphatase 86 (38-126) U/L Serum Total Protein 7.9 (6.3-8.2) g/dL Albumin 4.1 (3.5-5.0) g/dL - Progress Progress: improved Progress Note: 05/05/20 16:14 Normal neurological exam. Will give a migraine cocktail. Treat with fluids as well. Basic labs. Reevaluation. 05/05/20 16:54 Patient feeling improved. She is requesting discharge home at this point time. Will follow up with PCP. I did repeat a neurological exam. Remained unchanged. Plan of care was discussed with patient and all questions answered. The patient is agreeable to be discharged home and both verbal and printed discharge instructions were provided.The patient agreed to seek outpatient follow up as discussed. The patient was given strict instructions to return to the emergency department for worsening symptoms or any other emergent concerns. The patient verbalized understanding. - Departure Departure Disposition: Home Clinical Impression: Migraine Condition: Stable Critical Care Time: No Referrals: VAIBHAV CHURCHILL MD [Primary Care Provider] - Instructions: Headache, Adult (DC)
[2020-05-05] MEDS: Haldol 5 MG IV ONE ×2 (16:16→16:24)
[2020-05-05 16:27] LABS: BAND 4 % (0.0-2.0); Basophil 1 % (0.0-1.0); Eosinophil 3 % (0.00-3.0); Lymphocytes 37 % (24-44); Monocyte 5 % (0.0-12.0); Neutrophils 50 % (36.0-66.0); Total Cells Counted 100
[2020-05-05 16:28] LABS: Platelet Estimate DECREASED (NORMAL)
[2020-05-05 16:28] LABS: ALBUMIN 4.1 g/dL (3.5-5.0); ANION GAP 15.2 MEQ/L (5-15); BILIRUBIN,TOTAL 0.4 mg/dL (0.2-1.3); Calcium 9.3 mg/dL (8.4-10.2); Creatinine 1 1.38 mg/dL (0.52-1.04); EST GLOMERULAR FILTRATION RATE 42.7 ML/MIN; Potassium 4.6 mmol/L (3.5-5.1); Total Protein 7.9 g/dL (6.3-8.2)
[2020-05-05 16:29] LABS: Absolute Neutrophil Ct (ANC) 2.08 (1.4-6.9)
[2020-05-05 17:14] VITALS: BP 107/92; PULSE 66; O2SAT 98
== END 2020-05-05 17:06 | disposition home or self-care (01) ==
LOC: ED 15:25
DX: G43.909 Migraine, unspecified, not intractable, without status migrainosus (principal)
CPT/HCPCS: 36000; 36415; 80053; 85025; 96360; 96374; 96375; 99284; J1200; J1630; J2405

== ENCOUNTER 2020-06-14 18:26 | Emergency (ER) | payer MEDICARE ==
[2020-06-14] MEDS ORDERED: MORPHINE SULFATE 4 MG INJ IV ONE (18:49)
[2020-06-14] MEDS ORDERED: Hydromorphone 1 mg/ml Injection IV ONE (18:49)
[2020-06-14] MEDS ORDERED: BENADRYL 50 MG/ML IV ONE (18:49)
[2020-06-14] MEDS ORDERED: Hydromorphone 1 mg/ml Injection IM ONE (18:54)
[2020-06-14] MEDS ORDERED: Zofran 4 MG/2 ML VIAL IM ONE (18:54)
[2020-06-14] MEDS ORDERED: BENADRYL 50 MG/ML IM ONE (18:54)
--- NOTE | 2020-06-14 19:04 | ERPHSYRPT ---
- History of Present Illness Time Seen by Provider: 06/14/20 18:29 Source: patient Exam Limitations: no limitations Patient Subjective Stated Complaint: Headache Triage Nursing Assessment: Patient brought back to ED via w/c and transferred self to bed. Patient A+O X3. Patient's skin pink, warm and dry. Patient complains of headache for one week. Patient has hx of migraines. Patient denies any recent injury or trauma. Patient states she did vomit X 1. Physician History: 54 years old female with multiple medical problems including poorly controlled migraines presented in the ER with 1 week history of left-sided migraine with progressive worsening. Patient reports sharp throbbing headache, aggravated with light, movements, noise and partial relief with taking medications. She has been taking multiple medications for the last few days with no significant relief. Patient also report associated nausea and vomiting. Denies any dizziness lightheadedness or visual symptoms. No numbness tingling or weakness. Reports having similar headaches multiple times in the past. Patient blood pressure is in 215 and reports that this happens usually with migraine. No chest pain palpitations or shortness of breath. Not taking any blood thinners. Timing/Duration: week(s) (1), gradual onset, worse Quality: sharpness, throbbing Head Pain Location: frontal, temporal Severity of Pain-Max: severe Severity of Pain-Current: severe Recent Head Trauma: frequent headaches Modifying Factors: Improves With: medication. Worsens With: exposure to light, movement, noise, position Associated Symptoms: nausea/vomiting, No confusion, No dizziness, No facial pain, No fever/chills, No flushing, No light-headedness, No loss of consciousness, No nasal congestion, No nasal drainage, No neck pain, No numbness in legs/feet, No sweating, No scotoma, No seizures, No sinus infection, No speech problems, No stiff neck, No trouble walking, No vision changes, No visual disturbance, No weakness Previous symptoms: same symptoms as today Allergies/Adverse Reactions: adhesive Allergy (Intermediate, Verified 06/14/20 18:33) Rash ciprofloxacin HCl [From Cipro] Allergy (Intermediate, Verified 06/14/20 18:33) Rash gatifloxacin [From Tequin] Allergy (Intermediate, Verified 06/14/20 18:33) Rash levofloxacin [From Levaquin] Allergy (Intermediate, Verified 06/14/20 18:33) Rash aspirin Allergy (Verified 06/14/20 18:33) bupropion HCl [From Wellbutrin] Allergy (Verified 06/14/20 18:33) carisoprodol [From Soma] Allergy (Verified 06/14/20 18:33) cefaclor [From Ceclor] Allergy (Verified 06/14/20 18:33) ceftibuten dihydrate [From Cedax] Allergy (Verified 06/14/20 18:33) cephalexin monohydrate [From Keflex] Allergy (Verified 06/14/20 18:33) clarithromycin [From Biaxin] Allergy (Verified 06/14/20 18:33) clotrimazole [From Lotrimin] Allergy (Verified 06/14/20 18:33) codeine [Codeine] Allergy (Verified 06/14/20 18:33) erythromycin base [Erythromycin Base] Allergy (Verified 06/14/20 18:33) ketorolac tromethamine [From Toradol] Allergy (Verified 06/14/20 18:33) loracarbef [From Lorabid] Allergy (Verified 06/14/20 18:33) meperidine HCl [From Demerol] Allergy (Verified 06/14/20 18:33) morphine Allergy (Verified 06/14/20 18:33) Norgestimate-Ethi *RETIRED-07/08/12 [From Ortho Tri-Cyclen (21)] Allergy (Verified 06/14/20 18:33) Penicillins Allergy (Verified 06/14/20 18:33) prochlorperazine edisylate [From Compazine] Allergy (Verified 06/14/20 18:33) promethazine [From Phenergan] Allergy (Verified 06/14/20 18:33) Hives promethazine HCl [From Phenergan] Allergy (Verified 06/14/20 18:33) Sulfa (Sulfonamide Antibiotics) [Sulfa(Sulfonamide Antibiotics)] Allergy (Verified 06/14/20 18:33) sumatriptan [From Imitrex] Allergy (Verified 06/14/20 18:33) melon Adverse Reaction (Verified 06/14/20 18:33) Home Medications: Budesonide/Formoterol Fumarate [Symbicort 160-4.5 Mcg Inhaler] 2 puff IH BID 10/10/15 [History] Bumetanide [Bumex] 4 mg PO DAILY 10/10/15 [History] Cholecalciferol (Vitamin D3) [Vitamin D3] 2,000 unit PO UD 10/10/15 [History] Fenofibrate 160 mg PO DAILY 10/10/15 [History] Montelukast Sodium 25 mg PO DAILY 10/10/15 [History] Nitroglycerin 0.4 mg Tablet [Nitrostat 0.4 MG Tablet] 0.4 mg SL Q5MIN PRN MR X 3 PRN 10/10/15 [History] PANTOPRAZOLE 40 mg Tablet [Protonix 40MG Tablet] 40 mg PO DAILY 10/10/15 [History] Polyethylene Glycol 3350 17 gm [Miralax Powder 17GM PACKET] 17 gm PO UD PRN 10/10/15 [History] Potassium Chloride 20 Meq [Klor-Con 20 MEQ] 20 meq PO DAILY 10/10/15 [History] Divalproex Sodium [Divalproex Sodium ER] 500 mg PO BID 03/06/16 [History] Albuterol 2.5 mg/3 ml Neb [Proventil 2.5 mg/3 ml Neb] 1 ea IH QID PRN PRN 07/08/18 [History] Albuterol Sulfate [Proair Hfa] 2 puffs IH QID 07/08/18 [History] Rosuvastatin Calcium [Crestor] 40 mg PO DAILY 07/08/18 [History] Levothyroxine Sodium 112 Mcg [Synthroid 112 Mcg] 212 mcg PO DAILY 07/28/18 [History] Famotidine [Pepcid] 40 mg PO BID 07/18/19 [History] Fluticasone Propionate [Flonase NASAL] 2 sprays .ROUTE BID 07/18/19 [History] Diphenhydramine HCl 25 mg [Benadryl 25 mg Capsule] 25 mg PO Q4H PRN PRN 08/17/19 [History] Lisinopril 10 mg [Zestril 10 MG] 20 mg PO DAILY 08/17/19 [History] Magnesium Oxide 400 mg [Mag-Ox 400] 400 mg PO TID 08/17/19 [History] Cyclobenzaprine HCl 10 mg [Cyclobenzaprine 10 MG] 10 mg PO HS 03/31/20 [History] Erenumab-Aooe [Aimovig Autoinjector] 140 mg SQ UD 03/31/20 [History] Hydrocodone/APAP 5-325 Tab^^^ [Ace 5-325 Tablet^^^] 1 each PO QID MDD 6 03/31/20 [History] Insulin Degludec [Tresiba] 50 unit SQ TID 03/31/20 [History] Lubiprostone [Amitiza] 24 mcg PO DAILY 03/31/20 [History] Topiramate [Topamax] 50 mg PO BID 03/31/20 [History] Hx Tetanus, Diphtheria Vaccination/Date Given: No Hx Influenza Vaccination/Date Given: Yes Hx Pneumococcal Vaccination/Date Given: No Immunizations Up to Date: Yes Travel Risk - International Travel Have you traveled outside of the country in past 3 weeks: No - Coronavirus Screening Are you exhibiting any of the following symptoms?: No Close contact with a COVID-19 positive Pt in past 14-21 Days: No - Vaccine Status Have you recieved a Covid-19 vaccination: No - Review of Systems Constitutional: No Symptoms Eyes: No Symptoms Ears, Nose, & Throat: No Symptoms Respiratory: No Symptoms Cardiac: No Symptoms Abdominal/Gastrointestinal: Nausea, Vomiting Genitourinary Symptoms: No Symptoms Musculoskeletal: No Symptoms Skin: No Symptoms Neurological: Headache Psychological: No Symptoms Endocrine: No Symptoms Hematologic/Lymphatic: No Symptoms Immunological/Allergic: No Symptoms - Past Medical History Pertinent Past Medical History: Yes Neurological History: Migraines ENT History: Cataracts Cardiac History: Arrhythmia, Congestive Heart Failure, Other Respiratory History: Asthma, Bronchitis, COPD, Sleep Apnea Endocrine Medical History: Diabetes Type II, Hyperthyroidism Musculoskeletal History: Fibromyalgia, Osteoarthritis GI Medical History: GERD, Irritable Bowel History: Other Psycho-Social History: Anxiety, Bipolar, Depression, Other Female Reproductive Disorders: No Pertinent History Other Medical History: 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 PTSD - Past Surgical History Past Surgical History: Yes Neuro Surgical History: No Pertinent History Cardiac: Cardiac Catheterization Respiratory: No Pertinent History Gastrointestinal: Cholecystectomy Genitourinary: No Pertinent History Musculoskeletal: No Pertinent History Female Surgical History: Hysterectomy Other Surgical History: rt and lt carpal tunnel, trigger finger, tendon on right arm, ulnar nerve surgery, clipped left eye muscle, lt knee. lt shoulder, spinal block - Social History Smoking Status: Current every day smoker How long have you smoked: 40 Exposure to second hand smoke: Yes Drug Use: none Patient Lives Alone: No Significant Family History: no pertinent family hx - Female History Hx Last Menstrual Period: hysterectomy Hx Now: No - Nursing Vital Signs Nursing Vital Signs: Initial Vital Signs Temperature 98.0 F 06/14/20 18:33 Pulse Rate 83 06/14/20 18:33 Respiratory Rate 18 06/14/20 18:33 Blood Pressure 215/88 06/14/20 18:33 O2 Sat by Pulse Oximetry 97 06/14/20 18:33 Pain Scale Pain Intensity 7 - Physical Exam General Appearance: no apparent distress, alert Eye Exam: PERRL/EOMI, eyes nml inspection Ears, Nose, Throat Exam: normal ENT inspection, TMs normal, pharynx normal Neck Exam: normal inspection, non-tender, supple, full range of motion Respiratory Exam: normal breath sounds, lungs clear Cardiovascular Exam: regular rate/rhythm, normal heart sounds Gastrointestinal/Abdominal Exam: soft, normal bowel sounds, No tenderness, No distention, No guarding Back Exam: normal inspection, 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 of motion Extremity Exam: normal inspection, 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 of 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: normal hearing, normal speech, PERRL Coordination/Gait Exam: normal finger to nose, normal gait, normal cerebellar function Motor/Sensory Exam: no motor deficit, no sensory deficit, no pronator drift, negative Babinski's sign DTR Exam: bicep (R): 2+, bicep (L): 2+, knee (R): 2+, knee (L): 2+ Skin Exam: normal color SpO2 Interpretation: normal SpO2: 97 O2 Delivery: Room Air Ordered Tests: Medication Summary Discontinued Medications Generic Name Dose Route Start Last Admin Trade Name Freq PRN Reason Stop Dose Admin Diphenhydramine HCl 25 mg 06/14/20 18:49 06/14/20 20:15 Benadryl 50 Mg/Ml IV 06/14/20 18:50 Not Given STAT ONE Diphenhydramine HCl 25 mg 06/14/20 18:54 06/14/20 20:13 Benadryl 50 Mg/Ml IM 06/14/20 18:55 25 mg STAT ONE Administration Diphenhydramine HCl Confirm 06/14/20 19:54 Benadryl 50 Mg/Ml Administered 06/14/20 19:55 Dose 50 mg .ROUTE .STK-MED ONE Hydromorphone HCl 1 mg 06/14/20 18:49 06/14/20 20:14 Hydromorphone 1 Mg/Ml Injection IV 06/14/20 18:50 Not Given STAT ONE Hydromorphone HCl 1 mg 06/14/20 18:54 06/14/20 20:12 Hydromorphone 1 Mg/Ml Injection IM 06/14/20 18:55 1 mg STAT ONE Administration Hydromorphone HCl Confirm 06/14/20 19:54 Hydromorphone 1 Mg/Ml Injection Administered 06/14/20 19:55 Dose 1 mg .ROUTE .STK-MED ONE Morphine Sulfate 4 mg 06/14/20 18:49 06/14/20 20:15 Morphine Sulfate 4 Mg Inj IV 06/14/20 18:50 Not Given STAT ONE Ondansetron HCl 4 mg 06/14/20 18:54 06/14/20 20:13 Zofran 4 Mg/2 Ml Vial IM 06/14/20 18:55 4 mg STAT ONE Administration Ondansetron HCl Confirm 06/14/20 19:54 Zofran 4 Mg/2 Ml Vial Administered 06/14/20 19:55 Dose 4 mg .ROUTE .STK-MED ONE - Progress Progress: improved, re-examined Air Movement: good Progress Note: 06/14/20 20:52 54 years old is evaluated for left-sided migraine. Headache is similar to previous episodes. No nuchal rigidity, nonfocal neuro exam throughout stay in the ER on repeated evaluation. Had elevated blood pressure and improved after given symptomatic treatment for headache. On reevaluation patient is feeling better and wants to go home. I have recommended CT head with her elevated blood pressure but she does not want to get it done and states "it is always with headache her blood pressure goes up and I would be fine". Discussed signs symptoms of worsening needing return to ER which she seems understanding. Stable for discharge. Blood Culture(s) Obtained: No Antibiotics given: No Counseled pt/family regarding: diagnosis, need for follow-up - Departure Departure Disposition: Home Clinical Impression: Migraine headache Qualifiers: Migraine type: unspecified Status migrainosus presence: without status migrainosus Intractability: not intractable Qualified Code(s): G43.909 - Migraine, unspecified, not intractable, without status migrainosus Hypertension Qualifiers: Hypertension type: unspecified Qualified Code(s): I10 - Essential (primary) hypertension Condition: Stable Critical Care Time: No Referrals: VAIBHAV CHURCHILL MD [Primary Care Provider] - (1-2 days for reevaluation) DEB GOLDMAN [NON-STAFF PHY W/O PRIVILEGES] - (1-2 days for reevaluation) Instructions: Headache, Adult (DC) Additional Instructions: Take your routine headache medications as recommended. Follow-up with primary care and neurology. Monitor blood pressure regularly, keep a log and follow-up with PCP to see if it needs medication adjustments. Return to ER for intractable headache, vomiting, numbness tingling weakness focally are blurred vision/diplopia/difficulty speech etc.
[2020-06-14] MEDS ORDERED: Hydromorphone 1 mg/ml Injection ONE (19:54)
[2020-06-14] MEDS ORDERED: BENADRYL 50 MG/ML ONE (19:54)
[2020-06-14] MEDS ORDERED: Zofran 4 MG/2 ML VIAL ONE (19:54)
[2020-06-14 20:24] VITALS: BP 179/78; PULSE 70
[2020-06-14 20:55] VITALS: O2SAT 97
== END 2020-06-14 20:56 | disposition home or self-care (01) ==
LOC: ED 18:26
DX: G43.909 Migraine, unspecified, not intractable, without status migrainosus (principal); I10 Essential (primary) hypertension
CPT/HCPCS: 96372; 99284; J1170; J1200; J2405

== ENCOUNTER 2020-08-21 09:29 | Emergency (ER) | payer MEDICARE ==
[2020-08-21] MEDS ORDERED: Sodium Chloride 0.9% 1000 ML 1,000 ML IV STA (10:04)
[2020-08-21 10:21] LABS: Hematocrit 41.1 % (35-47); Hemoglobin 14.2 gm/dl (12.0-16.0); Mean Cell Volume 86.2 fl (78-100); Mean Corpuscular Hemoglobin 29.8 pg (26-32); Mean Corpuscular Hgb Concent. 34.5 g/dl (32-36); Mean Platelet Volume 11.7 fl (7.5-11.0); Platelet Count 157 K/mm3 (150-450); Red Blood Count 4.77 M/mm3 (4.1-5.4); White Blood Count 6.1 K/mm3 (4.0-10.5)
--- NOTE | 2020-08-21 10:25 | ERPHSYRPT ---
- History of Present Illness Historian: patient Patient Subjective Stated Complaint: vomiting Triage Nursing Assessment: Patient brought back to ED via motorized w/c and transferred self to bed. Patient A+O X3. Patient's skin pink, warm and dry. Patient complains of N/V for the past 3 days. Patient also complains of abdominal pain in the upper abdomen 5/10. Abodmen soft and round with BS X 4. Physician History: 55 yo wf w multiple medical problems/frequent ER visits presents w N/V/mild epigastric pain associated w the vomiting x 3 days. Pain is rated 5/10 and is wo rse w vomiting. She denies diarrhea/fever/chest pain/melena/hematochezia/hematemesis/dysuria/hematuria. Timing/Duration: other (3 days) Activities at Onset: rest Quality: aching Abdominal Pain Onset Location: epigastric Pain Radiation: no radiation Severity of Pain-Max: moderate Severity of Pain-Current: moderate Modifying Factors: Improves With: other (Worse w vomitinf) Associated Symptoms: loss of appetite, nausea, rash, vomiting, weakness, No back, No chest pain, No diaphoresis, No diarrhea, No fever/chills, No fatigue, No headache, No heartburn, No neck pain, No shortness of breath, No syncope Previous symptoms: same symptoms as today Allergies/Adverse Reactions: adhesive Allergy (Intermediate, Verified 08/21/20 09:47) Rash ciprofloxacin HCl [From Cipro] Allergy (Intermediate, Verified 08/21/20 09:47) Rash gatifloxacin [From Tequin] Allergy (Intermediate, Verified 08/21/20 09:47) Rash levofloxacin [From Levaquin] Allergy (Intermediate, Verified 08/21/20 09:47) Rash aspirin Allergy (Verified 08/21/20 09:47) bupropion HCl [From Wellbutrin] Allergy (Verified 08/21/20 09:47) carisoprodol [From Soma] Allergy (Verified 08/21/20 09:47) cefaclor [From Ceclor] Allergy (Verified 08/21/20 09:47) ceftibuten dihydrate [From Cedax] Allergy (Verified 08/21/20 09:47) cephalexin monohydrate [From Keflex] Allergy (Verified 08/21/20 09:47) clarithromycin [From Biaxin] Allergy (Verified 08/21/20 09:47) clotrimazole [From Lotrimin] Allergy (Verified 08/21/20 09:47) codeine [Codeine] Allergy (Verified 08/21/20 09:47) erythromycin base [Erythromycin Base] Allergy (Verified 08/21/20 09:47) ketorolac tromethamine [From Toradol] Allergy (Verified 08/21/20 09:47) loracarbef [From Lorabid] Allergy (Verified 08/21/20 09:47) meperidine HCl [From Demerol] Allergy (Verified 08/21/20 09:47) morphine Allergy (Verified 08/21/20 09:47) Norgestimate-Ethi *RETIRED-07/08/12 [From Ortho Tri-Cyclen (21)] Allergy (Verified 08/21/20 09:47) Penicillins Allergy (Verified 08/21/20 09:47) prochlorperazine edisylate [From Compazine] Allergy (Verified 08/21/20 09:47) promethazine [From Phenergan] Allergy (Verified 08/21/20 09:47) Hives promethazine HCl [From Phenergan] Allergy (Verified 08/21/20 09:47) Sulfa (Sulfonamide Antibiotics) [Sulfa(Sulfonamide Antibiotics)] Allergy (Verified 08/21/20 09:47) sumatriptan [From Imitrex] Allergy (Verified 08/21/20 09:47) melon Adverse Reaction (Verified 08/21/20 09:47) Home Medications: Budesonide/Formoterol Fumarate [Symbicort 160-4.5 Mcg Inhaler] 2 puff IH BID 10/10/15 [History] Bumetanide [Bumex] 4 mg PO DAILY 10/10/15 [History] Cholecalciferol (Vitamin D3) [Vitamin D3] 2,000 unit PO UD 10/10/15 [History] Fenofibrate 160 mg PO DAILY 10/10/15 [History] Montelukast Sodium 25 mg PO DAILY 10/10/15 [History] Nitroglycerin 0.4 mg Tablet [Nitrostat 0.4 MG Tablet] 0.4 mg SL Q5MIN PRN MR X 3 PRN 10/10/15 [History] PANTOPRAZOLE 40 mg Tablet [Protonix 40MG Tablet] 40 mg PO DAILY 10/10/15 [History] Polyethylene Glycol 3350 17 gm [Miralax Powder 17GM PACKET] 17 gm PO UD PRN 10/10/15 [History] Potassium Chloride 20 Meq [Klor-Con 20 MEQ] 20 meq PO DAILY 10/10/15 [History] Divalproex Sodium [Divalproex Sodium ER] 500 mg PO BID 03/06/16 [History] Albuterol 2.5 mg/3 ml Neb [Proventil 2.5 mg/3 ml Neb] 1 ea IH QID PRN PRN 07/08/18 [History] Albuterol Sulfate [Proair Hfa] 2 puffs IH QID 07/08/18 [History] Rosuvastatin Calcium [Crestor] 40 mg PO DAILY 07/08/18 [History] Levothyroxine Sodium 112 Mcg [Synthroid 112 Mcg] 212 mcg PO DAILY 07/28/18 [History] Famotidine [Pepcid] 40 mg PO BID 07/18/19 [History] Fluticasone Propionate [Flonase NASAL] 2 sprays .ROUTE BID 07/18/19 [History] Diphenhydramine HCl 25 mg [Benadryl 25 mg Capsule] 25 mg PO Q4H PRN PRN 08/17/19 [History] Lisinopril 10 mg [Zestril 10 MG] 20 mg PO DAILY 08/17/19 [History] Magnesium Oxide 400 mg [Mag-Ox 400] 400 mg PO TID 08/17/19 [History] Cyclobenzaprine HCl 10 mg [Cyclobenzaprine 10 MG] 10 mg PO HS 03/31/20 [History] Erenumab-Aooe [Aimovig Autoinjector] 140 mg SQ UD 03/31/20 [History] Hydrocodone/APAP 5-325 Tab^^^ [[place] 5-325 Tablet^^^] 1 each PO QID MDD 6 03/31/20 [History] Insulin Degludec [Tresiba] 50 unit SQ TID 03/31/20 [History] Lubiprostone [Amitiza] 24 mcg PO DAILY 03/31/20 [History] Topiramate [Topamax] 50 mg PO BID 03/31/20 [History] Hx Tetanus, Diphtheria Vaccination/Date Given: No Hx Influenza Vaccination/Date Given: Yes Hx Pneumococcal Vaccination/Date Given: No Immunizations Up to Date: Yes Travel Risk - International Travel Have you traveled outside of the country in past 3 weeks: No - Coronavirus Screening Are you exhibiting any of the following symptoms?: No Close contact with a COVID-19 positive Pt in past 14-21 Days: No - Vaccine Status Have you recieved a Covid-19 vaccination: Yes Board Writer: Moderna - Vaccination Dates Date of 2cond Vaccination (if applicable): N/A - Review of Systems Constitutional: No Symptoms, Lethargy, Malaise Eyes: No Symptoms Ears, Nose, & Throat: No Symptoms Respiratory: No Symptoms Cardiac: No Symptoms Abdominal/Gastrointestinal: No Symptoms, Abdominal Pain, Nausea, Vomiting Genitourinary Symptoms: No Symptoms Musculoskeletal: No Symptoms Skin: Other (Chronic posterior cervical lesion) Neurological: No Symptoms Psychological: No Symptoms Endocrine: No Symptoms Hematologic/Lymphatic: No Symptoms Immunological/Allergic: No Symptoms - Past Medical History Pertinent Past Medical History: Yes Neurological History: Migraines ENT History: Cataracts Cardiac History: Arrhythmia, Congestive Heart Failure, Other Respiratory History: Asthma, Bronchitis, COPD, Sleep Apnea Endocrine Medical History: Diabetes Type II, Hyperthyroidism Musculoskeletal History: Fibromyalgia, Osteoarthritis GI Medical History: GERD, Irritable Bowel History: Other Psycho-Social History: Anxiety, Bipolar, Depression, Other Female Reproductive Disorders: No Pertinent History Other Medical History: 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 PTSD - Past Surgical History Past Surgical History: Yes Neuro Surgical History: No Pertinent History Cardiac: Cardiac Catheterization Respiratory: No Pertinent History Gastrointestinal: Cholecystectomy Genitourinary: No Pertinent History Musculoskeletal: No Pertinent History Female Surgical History: Hysterectomy Other Surgical History: rt and lt carpal tunnel, trigger finger, tendon on right arm, ulnar nerve surgery, clipped left eye muscle, lt knee. lt shoulder, spinal block - Social History Smoking Status: Current every day smoker How long have you smoked: 40 Exposure to second hand smoke: Yes Drug Use: none Patient Lives Alone: No Significant Family History: no pertinent family hx - Female History Hx Last Menstrual Period: hysterectomy Hx Now: No - Nursing Vital Signs Nursing Vital Signs: Initial Vital Signs Temperature 98.4 F 08/21/20 09:49 Pulse Rate 97 H 08/21/20 09:49 Respiratory Rate 18 08/21/20 09:49 Blood Pressure 178/82 08/21/20 09:49 O2 Sat by Pulse Oximetry 98 08/21/20 09:49 Pain Scale Pain Intensity 4 - Physical Exam General Appearance: no apparent distress Eye Exam: PERRL/EOMI, eyes nml inspection Ears, Nose, Throat Exam: normal ENT inspection, TMs normal, pharynx normal, moist mucous membranes Neck Exam: normal inspection (Posterior draining abscess vs infected sebaceous cyst) Respiratory Exam: normal breath sounds, lungs clear, airway intact, No respiratory distress Cardiovascular Exam: regular rate/rhythm, normal heart sounds, No murmur Gastrointestinal/Abdomen Exam: soft, normal bowel sounds, tenderness (Mild epigastric TTP wo guarding or rebound) Extremity Exam: normal inspection, 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 of motion Neurologic Exam: alert, 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, cooperative, surgeon's assistant II-XII nml as tested, normal mood/affect, sensation nml, No motor deficits, No sensory deficit Skin Exam: normal color, warm, dry, rash (Multiple flea bites on back) Lymphatic Exam: No adenopathy SpO2 Interpretation: normal SpO2: 98 O2 Delivery: Room Air - Course Nursing assessment & vital signs reviewed: Yes Ordered Tests: Active Orders 24 hr Category Date Time Status IV Insertion STAT Care 08/21/20 10:04 Completed AMYLASE Stat Lab 08/21/20 10:15 Completed CBC W DIFF Stat Lab 08/21/20 10:15 Completed CMP Stat Lab 08/21/20 10:15 Completed CULTURE,URINE Stat Lab 08/21/20 10:25 Received LIPASE Stat Lab 08/21/20 10:15 Completed Manual Differential NC Stat Lab 08/21/20 10:15 Completed POCT GLUCOSE Stat Lab 08/21/20 09:57 Completed POCT GLUCOSE Stat Lab 08/21/20 11:29 Completed TROPONIN Q3H Lab 08/21/20 10:00 Completed UA W/RFX UR CULTURE Stat Lab 08/21/20 10:25 Completed Medication Summary Discontinued Medications Generic Name Dose Route Start Last Admin Trade Name Freq PRN Reason Stop Dose Admin Sodium Chloride 1,000 mls @ 999 mls/hr 08/21/20 10:04 08/21/20 11:32 Sodium Chloride 0.9% 1000 Ml IV 08/21/20 11:04 Infused .Q1H1M STA Infusion Sodium Chloride Confirm 08/21/20 10:26 Sodium Chloride 0.9% 1000 Ml Administered 08/21/20 10:27 Dose 1,000 mls @ ud .ROUTE .STK-MED ONE Ondansetron HCl 4 mg 08/21/20 10:39 08/21/20 10:53 Zofran 4 Mg/2 Ml Vial IV 08/21/20 10:40 4 mg STAT ONE Administration Ondansetron HCl Confirm 08/21/20 10:52 Zofran 4 Mg/2 Ml Vial Administered 08/21/20 10:53 Dose 4 mg .ROUTE .STK-MED ONE Lab/Rad Data: Laboratory Result Diagrams 08/21/20 10:15 08/21/20 10:15 Laboratory Results 08/21/20 08/21/20 08/21/20 Range/Units 11:29 10:25 10:15 WBC (4.0-10.5) K/mm3 RBC (4.1-5.4) M/mm3 Hgb (12.0-16.0) gm/dl Hct (35-47) % MCV (78-100) fl MCH (26-32) pg MCHC (32-36) g/dl RDW (11.5-14.0) % Plt Count (150-450) K/mm3 MPV (7.5-11.0) fl Segmented Neutrophils (36.0-66.0) % Band Neutrophils (0.0-2.0) % Lymphocytes (Manual) (24-44) % Monocytes (Manual) (0.0-12.0) % Eosinophils (Manual) (0.00-3.0) % Toxic Granulation Platelet Estimate (NORMAL) RBC Morphology Sodium 128 L (137-145) mmol/L Potassium 4.8 (3.5-5.1) mmol/L Chloride 100 (98-107) mmol/L Carbon Dioxide 15 L* (22-30) mmol/L Anion Gap 18.2 H (5-15) MEQ/L BUN 38 H (7-17) mg/dL Creatinine 0.93 (0.52-1.04) mg/dL Estimated GFR > 60.0 ML/MIN Glucose 354 H (74-106) mg/dL POC Glucometer 251 H (74 to 106) mg/dL Calcium 9.8 (8.4-10.2) mg/dL Total Bilirubin 0.80 (0.2-1.3) mg/dL AST 45 H (14-36) U/L ALT 22 (0-35) U/L Alkaline Phosphatase 111 (38-126) U/L Troponin I (0.000-0.034) ng/mL Serum Total Protein 8.2 (6.3-8.2) g/dL Albumin 4.2 (3.5-5.0) g/dL Amylase 43 (30-110) U/L Lipase 27 (23-300) U/L Urine Color YELLOW (YELLOW) Urine Appearance CLOUDY (CLEAR) Urine pH 5.0 (5-6) Ur Specific [place] 1.010 (1.005-1.025) Urine Protein >=500 (Negative) Urine Ketones NEGATIVE (NEGATIVE) Urine Blood SMALL (0-5) Joseluis/ul Urine Nitrite POSITIVE (NEGATIVE) Urine Bilirubin NEGATIVE (NEGATIVE) Urine Urobilinogen NEGATIVE (0-1) mg/dL Ur Leukocyte Esterase LARGE (NEGATIVE) Urine WBC (Auto) >100 (0-5) /HPF Urine RBC (Auto) 3-5 (0-2) /HPF U Epithel Cells (Auto) RARE (FEW) /HPF Urine Bacteria (Auto) PACKED (NEGATIVE) /HPF Urine Mucus (Auto) SLIGHT (NEGATIVE) /HPF Urine Culture Reflexed YES (NO) Urine Glucose >=500 (NEGATIVE) mg/dL 08/21/20 08/21/20 08/21/20 Range/Units 10:15 10:00 09:57 WBC 6.1 (4.0-10.5) K/mm3 RBC 4.77 (4.1-5.4) M/mm3 Hgb 14.2 (12.0-16.0) gm/dl Hct 41.1 (35-47) % MCV 86.2 (78-100) fl MCH 29.8 (26-32) pg MCHC 34.5 (32-36) g/dl RDW 13.0 (11.5-14.0) % Plt Count 157 (150-450) K/mm3 MPV 11.7 H (7.5-11.0) fl Segmented Neutrophils 61 (36.0-66.0) % Band Neutrophils 2 (0.0-2.0) % Lymphocytes (Manual) 32 (24-44) % Monocytes (Manual) 2 (0.0-12.0) % Eosinophils (Manual) 3 (0.00-3.0) % Toxic Granulation 1+ Platelet Estimate NORMAL (NORMAL) RBC Morphology NORMAL Sodium (137-145) mmol/L Potassium (3.5-5.1) mmol/L Chloride (98-107) mmol/L Carbon Dioxide (22-30) mmol/L Anion Gap (5-15) MEQ/L BUN (7-17) mg/dL Creatinine (0.52-1.04) mg/dL Estimated GFR ML/MIN Glucose (74-106) mg/dL POC Glucometer 350 H (74 to 106) mg/dL Calcium (8.4-10.2) mg/dL Total Bilirubin (0.2-1.3) mg/dL AST (14-36) U/L ALT (0-35) U/L Alkaline Phosphatase (38-126) U/L Troponin I < 0.012 (0.000-0.034) ng/mL Serum Total Protein (6.3-8.2) g/dL Albumin (3.5-5.0) g/dL Amylase (30-110) U/L Lipase (23-300) U/L Urine Color (YELLOW) Urine Appearance (CLEAR) Urine pH (5-6) Ur Specific [place] (1.005-1.025) Urine Protein (Negative) Urine Ketones (NEGATIVE) Urine Blood (0-5) Joseluis/ul Urine Nitrite (NEGATIVE) Urine Bilirubin (NEGATIVE) Urine Urobilinogen (0-1) mg/dL Ur Leukocyte Esterase (NEGATIVE) Urine WBC (Auto) (0-5) /HPF Urine RBC (Auto) (0-2) /HPF U Epithel Cells (Auto) (FEW) /HPF Urine Bacteria (Auto) (NEGATIVE) /HPF Urine Mucus (Auto) (NEGATIVE) /HPF Urine Culture Reflexed (NO) Urine Glucose (NEGATIVE) mg/dL - Progress Progress: improved Progress Note: 08/21/20 11:32 1L NS bolus/4mg IV Zofran w improvement Glucose decreasing w fluids and insulin pt gave herself before she came to ER Due to pt's extensive med allergies, will treat UTI w Macrobid. Counseled pt/family regarding: lab results, diagnosis, need for follow-up - Departure Departure Disposition: Home Clinical Impression: UTI (urinary tract infection), Nausea & vomiting, Hyperglycemia due to type 2 diabetes mellitus Condition: Stable Critical Care Time: No Referrals: VAIBHAV CHURCHILL MD [Primary Care Provider] - Instructions: Urinary Tract Infection, Adult (DC), Acute Abdomen (Belly Pain), Adult (DC), Hyperglycemia, Adult (DC) Additional Instructions: Fluids Continue Zofran for nausea/vomiting Follow up with your family MD in 1-2 days Watch glucose closely Return to ER for increasing pain/worsening nausea-vomiting Prescriptions: Nitrofurantoin Monohyd/M-Cryst [Macrobid 100 mg Capsule] 100 mg PO BID #14 capsule
[2020-08-21] MEDS ORDERED: Sodium Chloride 0.9% 1000 ML 1,000 ML ONE (10:26)
[2020-08-21 10:33] LABS: ALBUMIN 4.2 g/dL (3.5-5.0); ALKALINE PHOSPHATASE 111 U/L (38-126); AMYLASE 43 U/L (30-110); ANION GAP 18.2 MEQ/L (5-15); BLOOD UREA NITROGEN 38 mg/dL (7-17); CHLORIDE 100 mmol/L (98-107); Calcium 9.8 mg/dL (8.4-10.2); Creatinine 1 0.93 mg/dL (0.52-1.04); EST GLOMERULAR FILTRATION RATE > 60.0 ML/MIN; Glucose 354 mg/dL (74-106); LIPASE 27 U/L (23-300); Potassium 4.8 mmol/L (3.5-5.1); SGOT/AST 45 U/L (14-36); SGPT/ALT 22 U/L (0-35); SODIUM 128 mmol/L (137-145); Total Protein 8.2 g/dL (6.3-8.2)
[2020-08-21 10:35] LABS: Carbon Dioxide 15 mmol/L (22-30)
[2020-08-21] MEDS ORDERED: Zofran 4 MG/2 ML VIAL IV ONE (10:39)
[2020-08-21 10:40] LABS: Appearance CLOUDY (CLEAR); Bacteria PACKED /HPF (NEGATIVE); Bilirubin NEGATIVE (NEGATIVE); Blood SMALL Ery/ul (0-5); Epithelial Cells RARE /HPF (FEW); Glucose >=500 mg/dL (NEGATIVE); Ketones NEGATIVE (NEGATIVE); Leukocyte Esterase LARGE (NEGATIVE); Mucus SLIGHT /HPF (NEGATIVE); Nitrite POSITIVE (NEGATIVE); Protein,Urine Dip >=500 (Negative); Urobilinogen NEGATIVE mg/dL (0-1); WBC >100 /HPF (0-5)
[2020-08-21] MEDS ORDERED: Zofran 4 MG/2 ML VIAL ONE (10:52)
[2020-08-21 11:56] VITALS: BP 136/86; PULSE 62
[2020-08-21 15:16] LABS: BAND 2 % (0.0-2.0); Eosinophil 3 % (0.00-3.0); Lymphocytes 32 % (24-44); Monocyte 2 % (0.0-12.0); Neutrophils 61 % (36.0-66.0); Platelet Estimate NORMAL (NORMAL); Total Cells Counted 100; Toxic Granulation 1+
[2020-08-21 21:59] VITALS: O2SAT 98
== END 2020-08-21 11:52 | disposition home or self-care (01) ==
LOC: ED 09:29
DX: N39.0 Urinary tract infection, site not specified (principal); R11.2 Nausea with vomiting, unspecified; E11.65 Type 2 diabetes mellitus with hyperglycemia; I50.9 Heart failure, unspecified
CPT/HCPCS: 36000; 36415; 80053; 81001; 82150; 82947; 83690; 84484; 85025; 87077; 87086; 87186; 96360; 96374; 99284; J2405

== ENCOUNTER 2020-09-18 00:32 | Emergency (ER) | payer MEDICARE ==
[2020-09-18 01:36] VITALS: O2SAT 98
--- NOTE | 2020-09-18 02:14 | ERPHSYRPT ---
- History of Present Illness Time Seen by Provider: 09/18/20 02:09 Source: patient, family Exam Limitations: no limitations Patient Subjective Stated Complaint: pt states "My neck and back are killing me." Triage Nursing Assessment: pt came into er via wheelchair; pt is axo x4; c/o neck and back pain; pt states 9/10 pain to back and neck; pt states that she feels like she is going to pass out; pt is hypotensive upon arrival; pt states that she has chronic back pain; pt states that she took vicodine and flexiril prior to arrival; pt states that she took 2 flexiril; pt has tenderness with palpation to neck and lumbar area; 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 but no surgeries; no recent epidurals, no fever. tender abd so will scan due to hypotension and tenderness no neuro deficits. Timing/Duration: today Method of Injury: unknown Quality: burning, dull, radiating, sharp Back Pain Location: C-spine, lumbar spine, paraspinous muscles Severity of Pain-Max: severe Severity of Pain-Current: severe Modifying Factors: Improves With: movement Associated Symptoms: nausea, numbness in legs/feet (without change), No loss of bowel control Previous symptoms: different symptoms Allergies/Adverse Reactions: adhesive Allergy (Intermediate, Verified 09/18/20 02:27) Rash ciprofloxacin HCl [From Cipro] Allergy (Intermediate, Verified 09/18/20 02:27) Rash gatifloxacin [From Tequin] Allergy (Intermediate, Verified 09/18/20 02:27) Rash levofloxacin [From Levaquin] Allergy (Intermediate, Verified 09/18/20 02:27) Rash aspirin Allergy (Verified 09/18/20 02:27) bupropion HCl [From Wellbutrin] Allergy (Verified 09/18/20 02:27) carisoprodol [From Soma] Allergy (Verified 09/18/20 02:27) cefaclor [From Ceclor] Allergy (Verified 09/18/20 02:27) ceftibuten dihydrate [From Cedax] Allergy (Verified 09/18/20 02:27) cephalexin monohydrate [From Keflex] Allergy (Verified 09/18/20 02:27) clarithromycin [From Biaxin] Allergy (Verified 09/18/20 02:27) clotrimazole [From Lotrimin] Allergy (Verified 09/18/20 02:27) codeine [Codeine] Allergy (Verified 09/18/20 02:27) doxycycline Allergy (Verified 09/18/20 02:27) erythromycin base [Erythromycin Base] Allergy (Verified 09/18/20 02:27) ketorolac tromethamine [From Toradol] Allergy (Verified 09/18/20 02:27) loracarbef [From Lorabid] Allergy (Verified 09/18/20 02:27) meperidine HCl [From Demerol] Allergy (Verified 09/18/20 02:27) morphine Allergy (Verified 09/18/20 02:27) Norgestimate-Ethi *RETIRED-07/08/12 [From Ortho Tri-Cyclen (21)] Allergy (Verified 09/18/20 02:27) Penicillins Allergy (Verified 09/18/20 02:27) prochlorperazine edisylate [From Compazine] Allergy (Verified 09/18/20 02:27) promethazine [From Phenergan] Allergy (Verified 09/18/20 02:27) Hives promethazine HCl [From Phenergan] Allergy (Verified 09/18/20 02:27) Sulfa (Sulfonamide Antibiotics) [Sulfa(Sulfonamide Antibiotics)] Allergy (Ja ified 09/18/20 02:27) sumatriptan [From Imitrex] Allergy (Verified 09/18/20 02:27) melon Adverse Reaction (Verified 09/18/20 02:27) Home Medications: Budesonide/Formoterol Fumarate [Symbicort 160-4.5 Mcg Inhaler] 2 puff IH BID 10/10/15 [History] Bumetanide [Bumex] 4 mg PO DAILY 10/10/15 [History] Cholecalciferol (Vitamin D3) [Vitamin D3] 2,000 unit PO UD 10/10/15 [History] Fenofibrate 160 mg PO DAILY 10/10/15 [History] Montelukast Sodium 25 mg PO DAILY 10/10/15 [History] Nitroglycerin 0.4 mg Tablet [Nitrostat 0.4 MG Tablet] 0.4 mg SL Q5MIN PRN MR X 3 PRN 10/10/15 [History] PANTOPRAZOLE 40 mg Tablet [Protonix 40MG Tablet] 40 mg PO DAILY 10/10/15 [History] Polyethylene Glycol 3350 17 gm [Miralax Powder 17GM PACKET] 17 gm PO UD PRN 10/10/15 [History] Potassium Chloride 20 Meq [Klor-Con 20 MEQ] 20 meq PO DAILY 10/10/15 [History] Divalproex Sodium [Divalproex Sodium ER] 500 mg PO BID 03/06/16 [History] Albuterol 2.5 mg/3 ml Neb [Proventil 2.5 mg/3 ml Neb] 1 ea IH QID PRN PRN 07/08/18 [History] Albuterol Sulfate [Proair Hfa] 2 puffs IH QID 07/08/18 [History] Rosuvastatin Calcium [Crestor] 40 mg PO DAILY 07/08/18 [History] Levothyroxine Sodium 112 Mcg [Synthroid 112 Mcg] 212 mcg PO DAILY 07/28/18 [History] Famotidine [Pepcid] 40 mg PO BID 07/18/19 [History] Fluticasone Propionate [Flonase NASAL] 2 sprays .ROUTE BID 07/18/19 [History] Diphenhydramine HCl 25 mg [Benadryl 25 mg Capsule] 25 mg PO Q4H PRN PRN 08/17/19 [History] Lisinopril 10 mg [Zestril 10 MG] 20 mg PO DAILY 08/17/19 [History] Magnesium Oxide 400 mg [Mag-Ox 400] 400 mg PO TID 08/17/19 [History] Cyclobenzaprine HCl 10 mg [Cyclobenzaprine 10 MG] 10 mg PO HS 03/31/20 [History] Erenumab-Aooe [Aimovig Autoinjector] 140 mg SQ UD 03/31/20 [History] Hydrocodone/APAP 5-325 Tab^^^ [Dorsey 5-325 Tablet^^^] 1 each PO QID MDD 6 03/31/20 [History] Insulin Degludec [Tresiba] 50 unit SQ TID 03/31/20 [History] Lubiprostone [Amitiza] 24 mcg PO DAILY 03/31/20 [History] Topiramate [Topamax] 50 mg PO BID 03/31/20 [History] Hx Tetanus, Diphtheria Vaccination/Date Given: Yes Hx Influenza Vaccination/Date Given: Yes Hx Pneumococcal Vaccination/Date Given: No Travel Risk - International Travel Have you traveled outside of the country in past 3 weeks: No - Coronavirus Screening Are you exhibiting any of the following symptoms?: No Close contact with a COVID-19 positive Pt in past 14-21 Days: No - Vaccine Status Have you recieved a Covid-19 vaccination: Yes 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: [employer] - Vaccination Dates Date of 2cond Vaccination (if applicable): 08/31/20 - Review of Systems Constitutional: No Fever, No Chills Eyes: No Symptoms Ears, Nose, & Throat: No Symptoms Respiratory: No Cough, No Dyspnea Cardiac: No Chest Pain, No Edema, No Syncope Abdominal/Gastrointestinal: Abdominal Pain, Nausea, No Vomiting, No Diarrhea Genitourinary Symptoms: No Dysuria Musculoskeletal: Back Pain, Neck Pain Skin: No Rash Neurological: No Dizziness, No Focal Weakness, No Sensory Changes Psychological: No Symptoms Endocrine: No Symptoms Hematologic/Lymphatic: No Symptoms Immunological/Allergic: No Symptoms All Other Systems: Reviewed and Negative - Past Medical History Pertinent Past Medical History: Yes Neurological History: Migraines ENT History: Cataracts Cardiac History: Arrhythmia, Congestive Heart Failure, Other Respiratory History: Asthma, Bronchitis, COPD, Sleep Apnea Endocrine Medical History: Diabetes Type II, Hyperthyroidism Musculoskeletal History: Fibromyalgia, Osteoarthritis GI Medical History: GERD, Irritable Bowel History: Other Psycho-Social History: Anxiety, Bipolar, Depression, Other Female Reproductive Disorders: No Pertinent History Other Medical History: 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 PTSD - Past Surgical History Past Surgical History: Yes Neuro Surgical History: No Pertinent History Cardiac: Cardiac Catheterization Respiratory: No Pertinent History Gastrointestinal: Cholecystectomy Genitourinary: No Pertinent History Musculoskeletal: No Pertinent History Female Surgical History: Hysterectomy Other Surgical History: rt and lt carpal tunnel, trigger finger, tendon on right arm, ulnar nerve surgery, clipped left eye muscle, lt knee. lt shoulder, spinal block - Social History Smoking Status: Current every day smoker How long have you smoked: 40 Exposure to second hand smoke: Yes Drug Use: none Patient Lives Alone: No Significant Family History: no pertinent family hx - Female History Hx Now: No - Nursing Vital Signs Nursing Vital Signs: Initial Vital Signs Temperature 98.1 F 09/18/20 01:04 Pulse Rate 92 H 09/18/20 01:04 Respiratory Rate 18 09/18/20 01:04 Blood Pressure 65/49 09/18/20 01:04 O2 Sat by Pulse Oximetry 98 09/18/20 01:04 Pain Scale Pain Intensity [Upper Back] 9 Pain Intensity [Neck] 9 Pain Intensity 9 - Physical Exam General Appearance: no apparent distress, alert Eye Exam: PERRL/EOMI, eyes nml inspection Neck Exam: normal inspection, non-tender, supple, full range of motion, No meningismus Respiratory Exam: normal breath sounds, lungs clear, No respiratory distress Cardiovascular Exam: regular rate/rhythm, normal heart sounds Gastrointestinal Exam: soft, tenderness, No mass Pelvic Exam: deferred Rectal Exam: deferred Back Exam: normal inspection, vertebral tenderness Extremity Exam: normal inspection, 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 of motion, No calf tenderness, No pedal edema Peripheral Pulses: carotid (R): 2+, carotid (L): 2+, femoral (R): 2+, femoral (L): 2+, dorsalis-pedis (R): 2+, dorsalis-pedis (L): 2+ Neurologic Exam: alert, 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, cooperative, official greeter II-XII nml as tested, normal mood/affect, nml station & gait, sensation nml, No motor deficits Skin Exam: normal color, warm, dry, No rash SpO2 Interpretation: normal SpO2: 98 O2 Delivery: Room Air - Course Nursing assessment & vital signs reviewed: Yes EKG Interpreted by Me: Sinus Rhythm, Non-specific ST Changes Ordered Tests: Active Orders 24 hr Category Date Time Status EKG-ER Only STAT Care 09/18/20 02:14 Active IV Insertion STAT Care 09/18/20 02:14 Active ABDOMEN AND PELVIS W/0 CONTRAS [CT] Stat Exams 09/18/20 02:15 Taken CHEST 1 VIEW (PORTABLE) Stat Exams 09/18/20 03:43 Ordered LUMBAR SPINE W/O [CT] Stat Exams 09/18/20 02:32 Taken AMYLASE Stat Lab 09/18/20 02:15 Completed BNP [NT PRO BNP] Stat Lab 09/18/20 02:15 Completed CBC W DIFF Stat Lab 09/18/20 02:15 Completed CMP Stat Lab 09/18/20 02:15 Completed HCG QUALITATIVE,SERUM Stat Lab 09/18/20 02:15 Completed LIPASE Stat Lab 09/18/20 02:15 Completed Lactic Acid Stat Lab 09/18/20 02:35 Completed Manual Differential NC Stat Lab 09/18/20 02:15 Completed TROPONIN Q3H Lab 09/18/20 02:15 Completed TROPONIN Q3H Lab 09/18/20 05:15 Ordered TROPONIN Q3H Lab 09/18/20 08:15 Ordered TROPONIN Q3H Lab 09/18/20 11:15 Ordered TROPONIN Q3H Lab 09/18/20 14:15 Ordered UA W/RFX UR CULTURE Stat Lab 09/18/20 02:15 Ordered Medication Summary Discontinued Medications Generic Name Dose Route Start Last Admin Trade Name Freq PRN Reason Stop Dose Admin Sodium Chloride 1,000 mls @ 999 mls/hr 09/18/20 02:14 09/18/20 02:30 Sodium Chloride 0.9% 1000 Ml IV 09/18/20 03:14 999 mls/hr .Q1H1M STA Administration Sodium Chloride Confirm 09/18/20 02:29 Sodium Chloride 0.9% 1000 Ml Administered 09/18/20 02:30 Dose 1,000 mls @ ud .ROUTE .STK-MED ONE Ketamine HCl 10 mg 09/18/20 02:17 09/18/20 02:33 Ketamine Hcl 50 Mg/Ml IV 09/18/20 02:18 10 mg STAT ONE Administration Ondansetron HCl 4 mg 09/18/20 02:14 09/18/20 02:31 Zofran 4 Mg/2 Ml Vial IV 09/18/20 02:15 4 mg STAT ONE Administration Ondansetron HCl Confirm 09/18/20 02:29 Zofran 4 Mg/2 Ml Vial Administered 09/18/20 02:30 Dose 4 mg .ROUTE .STK-MED ONE Lab/Rad Data: Laboratory Result Diagrams 09/18/20 02:15 09/18/20 02:15 Laboratory Results 09/18/20 09/18/20 09/18/20 Range/Units 02:35 02:15 02:15 WBC (4.0-10.5) K/mm3 RBC (4.1-5.4) M/mm3 Hgb (12.0-16.0) gm/dl Hct (35-47) % MCV (78-100) fl MCH (26-32) pg MCHC (32-36) g/dl RDW (11.5-14.0) % Plt Count (150-450) K/mm3 MPV (7.5-11.0) fl Sodium (137-145) mmol/L Potassium (3.5-5.1) mmol/L Chloride (98-107) mmol/L Carbon Dioxide (22-30) mmol/L Anion Gap (5-15) MEQ/L BUN (7-17) mg/dL Creatinine (0.52-1.04) mg/dL Estimated GFR ML/MIN Glucose (74-106) mg/dL Lactic Acid 3.7 H (0.4-2.0) Calcium (8.4-10.2) mg/dL Total Bilirubin (0.2-1.3) mg/dL AST (14-36) U/L ALT (0-35) U/L Alkaline Phosphatase (38-126) U/L Troponin I (0.000-0.034) ng/mL NT-Pro-B Natriuret Pep 1090 H (0-900) pg/mL Serum Total Protein (6.3-8.2) g/dL Albumin (3.5-5.0) g/dL Amylase (30-110) U/L Lipase (23-300) U/L Serum , Qual NEGATIVE (Negative) 09/18/20 09/18/20 09/18/20 Range/Units 02:15 02:15 02:15 WBC 10.3 (4.0-10.5) K/mm3 RBC 5.08 (4.1-5.4) M/mm3 Hgb 15.0 (12.0-16.0) gm/dl Hct 42.9 (35-47) % MCV 84.4 (78-100) fl MCH 29.5 (26-32) pg MCHC 35.0 (32-36) g/dl RDW 13.4 (11.5-14.0) % Plt Count 212 (150-450) K/mm3 MPV 12.5 H (7.5-11.0) fl Sodium 130 L (137-145) mmol/L Potassium 3.6 (3.5-5.1) mmol/L Chloride 93 L (98-107) mmol/L Carbon Dioxide 20 L (22-30) mmol/L Anion Gap 20.2 H (5-15) MEQ/L BUN 48 H (7-17) mg/dL Creatinine 2.51 H (0.52-1.04) mg/dL Estimated GFR 21.3 ML/MIN Glucose 181 H (74-106) mg/dL Lactic Acid (0.4-2.0) Calcium 10.1 (8.4-10.2) mg/dL Total Bilirubin 0.20 (0.2-1.3) mg/dL AST 29 (14-36) U/L ALT 18 (0-35) U/L Alkaline Phosphatase 114 (38-126) U/L Troponin I 0.034 (0.000-0.034) ng/mL NT-Pro-B Natriuret Pep (0-900) pg/mL Serum Total Protein 8.3 H (6.3-8.2) g/dL Albumin 4.2 (3.5-5.0) g/dL Amylase 49 (30-110) U/L Lipase 37 (23-300) U/L Serum , Qual (Negative) - Progress Progress: improved, re-examined Progress Note: 09/18/20 04:24 pt feels better now and has not had CP or SOBreath but was offered admission because of elevated troponin and BNP , initial low BP, as well as concerns for colon- she and wish to decline and have the capacity to make that choice. also discussed ab as outpt for possible collitis , but again she has no symptoms and wishes to hold off and observe at home and follow-up with her PMDs. the earlier low BP is now in the 90/60 range without symptoms Counseled pt/family regarding: lab results, diagnosis, need for follow-up, rad results - Departure Departure Disposition: Home Clinical Impression: exacerbation of chronic back/neck pain , elev Trop,BNP,lactate, colon on CT Condition: Good Critical Care Time: No Referrals: VAIBHAV CHURCHILL MD [Primary Care Provider] - Additional Instructions: followup with your Drs. as planned NINO for further evaluation and workup with the lab findings of elevated troponin, BNP, and lactate, as well as the colon findings on CT scan. Return anytime for any concerns or symptoms as these findings may represent conditions evolving and could be serious.
[2020-09-18] MEDS ORDERED: Zofran 4 MG/2 ML VIAL ONE (02:29)
[2020-09-18] MEDS ORDERED: Sodium Chloride 0.9% 1000 ML 1,000 ML ONE (02:29)
[2020-09-18] MEDS: Sodium Chloride 0.9% 1000 ML 1,000 ML IV STA (02:30)
[2020-09-18] MEDS: Zofran 4 MG/2 ML VIAL IV ONE (02:31)
[2020-09-18] MEDS: Ketamine HCl 50 MG/ML IV ONE (02:33)
[2020-09-18 02:38] LABS: Hematocrit 42.9 % (35-47); Mean Cell Volume 84.4 fl (78-100); Mean Corpuscular Hemoglobin 29.5 pg (26-32); Mean Platelet Volume 12.5 fl (7.5-11.0); Platelet Count 212 K/mm3 (150-450); Red Blood Count 5.08 M/mm3 (4.1-5.4); Red Cell Distribution Width 13.4 % (11.5-14.0); White Blood Count 10.3 K/mm3 (4.0-10.5)
[2020-09-18 02:45] LABS: ALBUMIN 4.2 g/dL (3.5-5.0); ANION GAP 20.2 MEQ/L (5-15); BILIRUBIN,TOTAL 0.2 mg/dL (0.2-1.3); Calcium 10.1 mg/dL (8.4-10.2); Creatinine 1 2.51 mg/dL (0.52-1.04); EST GLOMERULAR FILTRATION RATE 21.3 ML/MIN; Potassium 3.6 mmol/L (3.5-5.1); Total Protein 8.3 g/dL (6.3-8.2)
[2020-09-18 04:33] LABS: Eosinophil 3 % (0.00-3.0); Lymphocytes 32 % (24-44); Monocyte 5 % (0.0-12.0); Neutrophils 60 % (36.0-66.0); Total Cells Counted 100
[2020-09-18 04:34] LABS: Platelet Estimate NORMAL (NORMAL)
[2020-09-18 04:44] VITALS: BP 89/51; PULSE 67
--- NOTE | 2020-09-18 09:05 | XRAY ---
Indication: Back pain radiating to abdomen. History of fibromyalgia, GERD, and IBS. Multiple contiguous axial images obtained through the abdomen and pelvis without contrast. Comparison: CT abdomen July 18, 2020. Lung bases demonstrates minimal bibasilar dependent atelectasis. Heart is now borderline enlarged. Slightly enlarging small hiatal hernia. Noncontrasted stomach and small bowel loops appear nonobstructed. Appendix not seen. There is again radiopacity throughout the colon either ingested barium versus bismuth. Again mild diffuse scattered colonic fecal debris throughout. Cholecystectomy and hysterectomy reported. No free fluid/air. Stable cirrhotic appearing liver and 14.1 cm splenomegaly. Urinary bladder is near empty and unremarkable. Remaining liver, pancreas, spleen, adrenal glands, kidneys, ureters, and bladder are unremarkable for noncontrast exam. There remains moderate scattered aortoiliac calcifications without AAA. Osseous structures intact again with incidental mild degenerative changes throughout the thoracolumbar spine, remote T1 anterior wedging deformity, and L2/L3 superior endplate concave deformities either Schmorl nodes versus remote fractures. Impression: 1. Again diffuse fecal stasis, hiatal hernia, cirrhosis without ascites, splenomegaly, and chronic bony findings. 2. Remaining CT abdomen/pelvis without contrast exam is again negative. Comment: Preliminary interpretation was made by C. No critical discrepancy.
--- NOTE | 2020-09-18 09:07 | XRAY ---
Indication: Back pain radiating to abdomen. History of fibromyalgia, GERD, and IBS. Multiple contiguous axial images obtained through the lumbar spine. Sagittal and coronal reformatted images obtained. Comparison: CT abdomen July 18, 2020. Stable L1-L2 degenerative vacuum disc phenomena and mild broad-based L3-L5 disc bulge. Negative for acute fracture or suspicious bony lesions. Osseous structures intact again with incidental mild degenerative changes throughout the thoracolumbar spine, remote T1 anterior wedging deformity, and L2/L3 superior endplate concave deformities either Schmorl nodes versus remote fractures. Facets are symmetric. Negative for acute compression fracture or subluxation. CT abdomen/pelvis reported separately. Impression: 1. Negative for acute fracture or spinal canal stenosis. 2. Stable multilevel degenerative disc disease, remote T1 anterior wedging deformity, and L2/L3 superior endplate concave deformities either Schmorl nodes versus remote fractures. Comment: Preliminary interpretation was made by [facility]. No critical discrepancy.
== END 2020-09-18 04:30 | disposition left against medical advice (07) ==
LOC: ED 00:32
DX: M54.9 Dorsalgia, unspecified (principal); M50.90 Cervical disc disorder, unspecified, unspecified cervical region; Z79.899 Other long term (current) drug therapy; I50.9 Heart failure, unspecified; J44.9 Chronic obstructive pulmonary disease, unspecified; G47.30 Sleep apnea, unspecified; J45.909 Unspecified asthma, uncomplicated; E05.90 Thyrotoxicosis, unspecified without thyrotoxic crisis or storm; M79.7 Fibromyalgia; F31.9 Bipolar disorder, unspecified
CPT/HCPCS: 36415; 72131; 74176; 80053; 81025; 82150; 83605; 83690; 83880; 84484; 85025; 93005; 96360; 96374; 99284; J2405

== ENCOUNTER 2020-10-24 10:21 | Emergency (ER) | payer MEDICARE ==
[2020-10-24] MEDS ORDERED: Zofran 4 MG/2 ML VIAL IM ONE (11:06)
[2020-10-24] MEDS ORDERED: NALBUPHINE HCL 10 MG/1 ML INJECTION IM ONE (11:06)
[2020-10-24] MEDS ORDERED: Zofran 4 MG/2 ML VIAL ONE (11:10)
[2020-10-24] MEDS ORDERED: Nubain 10 MG/ML ONE (11:12)
[2020-10-24 11:35] VITALS: O2SAT 98
[2020-10-24 11:46] LABS: Appearance SLIGHTLY CLOUDY (CLEAR); Bilirubin NEGATIVE (NEGATIVE); Blood SMALL Ery/ul (0-5); Epithelial Cells RARE /HPF (FEW); Glucose >=500 mg/dL (NEGATIVE); Ketones NEGATIVE (NEGATIVE); Leukocyte Esterase TRACE (NEGATIVE); Mucus SLIGHT /HPF (NEGATIVE); Nitrite NEGATIVE (NEGATIVE); Protein,Urine Dip >=500 (Negative); Specific Gravity 1.008 (1.005-1.025); Urobilinogen NEGATIVE mg/dL (0-1)
[2020-10-24 12:37] VITALS: BP 110/61; PULSE 76
[2020-10-24] MEDS ORDERED: Macrobid 100MG Capsule PO ONE (12:51)
--- NOTE | 2020-10-24 12:57 | ERPHSYRPT ---
- History of Present Illness Time Seen by Provider: 10/24/20 10:22 Source: patient Exam Limitations: no limitations Patient Subjective Stated Complaint: " I have had a sore throat and headache for the past 3 days". Triage Nursing Assessment: Pt presents to ER with her fiance who both complain of sore throats. This patient states she has a throbbing headache x 3 days. Has productive cough with green sputum. Pt is alert and oriented x3. Uses wheelchair daily due to weak impaired gait. Pt complains of two UTIs within the past 2 months also and believes she still has UTI. Pt states she was around someone with a sinus infection but they may of had Covid. Pt respirations are unlabored at this time. Skin is pink, warm, and dry. Abdomen is soft and nontender. Physician History: 55 years old female with history of poorly controlled migraines presented in the ER with 3 days history of frontal and occipital area headache without any improvement with [id number]/symptomatic treatment. Does have nausea but no vomiting. Denies any focal numbness tingling or weakness. Headache is similar to previous episodes, does not think this is the worst headache of her life. Does have some nasal congestion and sore throat for the last couple of days with some earache. Denies any fever or chills. Has minimal productive cough but no shortness of breath. Patient also reports she probably thinks she has UTI has she has couple of them in the last 2 months. Timing/Duration: day(s) (3), constant, gradual onset, worse Quality: throbbing Head Pain Location: frontal, occipital Severity of Pain-Max: moderate Severity of Pain-Current: moderate Recent Head Trauma: no recent headache/trauma Modifying Factors: Worsens With: exposure to light Associated Symptoms: nasal congestion, nasal drainage, No confusion, No dizzine ss, No fatigue, No facial pain, No fever/chills, No flushing, No light- headedness, No loss of consciousness, No nausea/vomiting, No numbness in legs/feet, No rash, No sweating, No scotoma, No seizures, No sinus infection, No stiff neck, No trouble walking, No vision changes, No visual disturbance, No weakness Previous symptoms: same symptoms as today Allergies/Adverse Reactions: adhesive Allergy (Intermediate, Verified 10/24/20 10:50) Rash ciprofloxacin HCl [From Cipro] Allergy (Intermediate, Verified 10/24/20 10:50) Rash gatifloxacin [From Tequin] Allergy (Intermediate, Verified 10/24/20 10:50) Rash levofloxacin [From Levaquin] Allergy (Intermediate, Verified 10/24/20 10:50) Rash aspirin Allergy (Verified 10/24/20 10:50) bupropion HCl [From Wellbutrin] Allergy (Verified 10/24/20 10:50) carisoprodol [From Soma] Allergy (Verified 10/24/20 10:50) cefaclor [From Ceclor] Allergy (Verified 10/24/20 10:50) ceftibuten dihydrate [From Cedax] Allergy (Verified 10/24/20 10:50) cephalexin monohydrate [From Keflex] Allergy (Verified 10/24/20 10:50) clarithromycin [From Biaxin] Allergy (Verified 10/24/20 10:50) clotrimazole [From Lotrimin] Allergy (Verified 10/24/20 10:50) codeine [Codeine] Allergy (Verified 10/24/20 10:50) doxycycline Allergy (Verified 10/24/20 10:50) erythromycin base [Erythromycin Base] Allergy (Verified 10/24/20 10:50) ketorolac tromethamine [From Toradol] Allergy (Verified 10/24/20 10:50) loracarbef [From Lorabid] Allergy (Verified 10/24/20 10:50) meperidine HCl [From Demerol] Allergy (Verified 10/24/20 10:50) morphine Allergy (Verified 10/24/20 10:50) Norgestimate-Ethi *RETIRED-07/08/12 [From Ortho Tri-Cyclen (21)] Allergy (Verified 10/24/20 10:50) Penicillins Allergy (Verified 10/24/20 10:50) prochlorperazine edisylate [From Compazine] Allergy (Verified 10/24/20 10:50) promethazine [From Phenergan] Allergy (Verified 10/24/20 10:50) Hives promethazine HCl [From Phenergan] Allergy (Verified 10/24/20 10:50) Sulfa (Sulfonamide Antibiotics) [Sulfa(Sulfonamide Antibiotics)] Allergy (Verified 10/24/20 10:50) sumatriptan [From Imitrex] Allergy (Verified 10/24/20 10:50) melon Adverse Reaction (Verified 10/24/20 10:50) Home Medications: Budesonide/Formoterol Fumarate [Symbicort 160-4.5 Mcg Inhaler] 2 puff IH BID 10/10/15 [History] Bumetanide [Bumex] 4 mg PO DAILY 10/10/15 [History] Cholecalciferol (Vitamin D3) [Vitamin D3] 2,000 unit PO UD 10/10/15 [History] Fenofibrate 160 mg PO DAILY 10/10/15 [History] Montelukast Sodium 25 mg PO DAILY 10/10/15 [History] Nitroglycerin 0.4 mg Tablet [Nitrostat 0.4 MG Tablet] 0.4 mg SL Q5MIN PRN MR X 3 PRN 10/10/15 [History] PANTOPRAZOLE 40 mg Tablet [Protonix 40MG Tablet] 40 mg PO DAILY 10/10/15 [History] Polyethylene Glycol 3350 17 gm [Miralax Powder 17GM PACKET] 17 gm PO UD PRN 10/10/15 [History] Potassium Chloride 20 Meq [Klor-Con 20 MEQ] 20 meq PO DAILY 10/10/15 [History] Divalproex Sodium [Divalproex Sodium ER] 500 mg PO BID 03/06/16 [History] Albuterol 2.5 mg/3 ml Neb [Proventil 2.5 mg/3 ml Neb] 1 ea IH QID PRN PRN 07/08/18 [History] Albuterol Sulfate [Proair Hfa] 2 puffs IH QID 07/08/18 [History] Rosuvastatin Calcium [Crestor] 40 mg PO DAILY 07/08/18 [History] Levothyroxine Sodium 112 Mcg [Synthroid 112 Mcg] 212 mcg PO DAILY 07/28/18 [History] Famotidine [Pepcid] 40 mg PO BID 07/18/19 [History] Fluticasone Propionate [Flonase NASAL] 2 sprays .ROUTE BID 07/18/19 [History] Diphenhydramine HCl 25 mg [Benadryl 25 mg Capsule] 25 mg PO Q4H PRN PRN 08/17/19 [History] Lisinopril 10 mg [Zestril 10 MG] 20 mg PO DAILY 08/17/19 [History] Magnesium Oxide 400 mg [Mag-Ox 400] 400 mg PO TID 08/17/19 [History] Cyclobenzaprine HCl 10 mg [Cyclobenzaprine 10 MG] 10 mg PO HS 03/31/20 [History] Erenumab-Aooe [Aimovig Autoinjector] 140 mg SQ UD 03/31/20 [History] Hydrocodone/APAP 5-325 Tab^^^ [[place] 5-325 Tablet^^^] 1 each PO QID MDD 6 03/31/20 [History] Insulin Degludec [Tresiba] 50 unit SQ TID 03/31/20 [History] Lubiprostone [Amitiza] 24 mcg PO DAILY 03/31/20 [History] Topiramate [Topamax] 50 mg PO BID 03/31/20 [History] Ondansetron [Ondansetron Odt] 8 mg PO Q6-8HPRN PRN 10/24/20 [History] Rimegepant Sulfate [Nurtec Odt] 75 mg PO Q12H PRN PRN 10/24/20 [History] Hx Tetanus, Diphtheria Vaccination/Date Given: No Hx Influenza Vaccination/Date Given: Yes Hx Pneumococcal Vaccination/Date Given: No Immunizations Up to Date: Yes Travel Risk - International Travel Have you traveled outside of the country in past 3 weeks: No - Coronavirus Screening Are you exhibiting any of the following symptoms?: Yes Symptoms: Cough: New Onset, Headaches/Body Aches/Fatigue - Vaccine Status Have you recieved a Covid-19 vaccination: Yes 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 - Vaccination Dates Date of 2cond Vaccination (if applicable): 08/15/2020 - Review of Systems Constitutional: No Symptoms Eyes: No Symptoms Ears, Nose, & Throat: Nose Congestion, Sinus Drainage, Throat Pain, Throat Swelling Respiratory: Cough Cardiac: No Symptoms Abdominal/Gastrointestinal: Nausea Genitourinary Symptoms: No Symptoms Musculoskeletal: No Symptoms Skin: No Symptoms Neurological: Headache, No Dizziness, No Focal Weakness, No Gait Changes Psychological: No Symptoms Endocrine: No Symptoms Hematologic/Lymphatic: No Symptoms Immunological/Allergic: No Symptoms - Past Medical History Pertinent Past Medical History: Yes Neurological History: Migraines ENT History: Cataracts Cardiac History: Arrhythmia, Congestive Heart Failure, Other Respiratory History: Asthma, Bronchitis, COPD, Sleep Apnea Endocrine Medical History: Diabetes Type II, Hyperthyroidism Musculoskeletal History: Fibromyalgia, Osteoarthritis GI Medical History: GERD, Irritable Bowel History: Other Psycho-Social History: Anxiety, Bipolar, Depression, Other Female Reproductive Disorders: No Pertinent History Other Medical History: 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 PTSD - Past Surgical History Past Surgical History: Yes Neuro Surgical History: No Pertinent History Cardiac: Cardiac Catheterization Respiratory: No Pertinent History Gastrointestinal: Cholecystectomy Genitourinary: No Pertinent History Musculoskeletal: No Pertinent History Female Surgical History: Hysterectomy Other Surgical History: rt and lt carpal tunnel, trigger finger, tendon on right arm, ulnar nerve surgery, clipped left eye muscle, lt knee. lt shoulder, spinal block - Social History Smoking Status: Current every day smoker How long have you smoked: 40 Exposure to second hand smoke: No Drug Use: none Patient Lives Alone: No Significant Family History: no pertinent family hx - Female History Hx Now: No - Nursing Vital Signs Nursing Vital Signs: Initial Vital Signs Temperature 98.2 F 10/24/20 10:43 Pulse Rate 90 10/24/20 10:43 Respiratory Rate 18 10/24/20 10:43 Blood Pressure 191/86 10/24/20 10:43 O2 Sat by Pulse Oximetry 96 10/24/20 10:43 Pain Scale Pain Intensity 0 - Physical Exam General Appearance: no apparent distress, alert Eye Exam: PERRL/EOMI, eyes nml inspection Ears, Nose, Throat Exam: normal ENT inspection, TMs normal, pharyngeal erythema Neck Exam: normal inspection, non-tender, supple, full range of motion, No meningismus Respiratory Exam: normal breath sounds, lungs clear Cardiovascular Exam: regular rate/rhythm, normal heart sounds Gastrointestinal/Abdominal Exam: soft, normal bowel sounds, No tenderness Back Exam: normal inspection, 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 of motion Extremity Exam: normal inspection, 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 of motion 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, 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, 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 Exam: normal hearing, normal speech, PERRL Coordination/Gait Exam: normal finger to nose, normal gait, normal cerebellar function, negative Romberg's sign Motor/Sensory Exam: no motor deficit, no sensory deficit, no pronator drift, negative Babinski's sign DTR Exam: bicep (R): 2+, bicep (L): 2+, knee (R): 2+, knee (L): 2+ Skin Exam: normal color SpO2 Interpretation: normal SpO2: 98 O2 Delivery: Room Air Ordered Tests: Active Orders 24 hr Category Date Time Status UA W/RFX UR CULTURE Stat Lab 10/24/20 11:35 Completed Medication Summary Discontinued Medications Generic Name Dose Route Start Last Admin Trade Name Fermínq PRN Reason Stop Dose Admin Nalbuphine HCl 10 mg 10/24/20 11:06 10/24/20 11:29 Nalbuphine Hcl 10 Mg/1 Ml Injection IM 10/24/20 11:07 10 mg STAT ONE Administration Nalbuphine HCl Confirm 10/24/20 11:12 Nubain 10 Mg/Ml Administered 10/24/20 11:13 Dose 10 mg .ROUTE .STK-MED ONE Ondansetron HCl 4 mg 10/24/20 11:06 10/24/20 11:19 Zofran 4 Mg/2 Ml Vial IM 10/24/20 11:07 4 mg STAT ONE Administration Ondansetron HCl Confirm 10/24/20 11:10 Zofran 4 Mg/2 Ml Vial Administered 10/24/20 11:11 Dose 4 mg .ROUTE .STK-MED ONE Lab/Rad Data: Laboratory Results 10/24/20 10/24/20 10/24/20 Range/Units 11:35 11:06 11:06 Urine Color YELLOW (YELLOW) Urine Appearance SLIGHTLY CLOUDY (CLEAR) Urine pH 5.0 (5-6) Ur Specific [place] 1.008 (1.005-1.025) Urine Protein >=500 (Negative) Urine Ketones NEGATIVE (NEGATIVE) Urine Blood SMALL (0-5) Joseluis/ul Urine Nitrite NEGATIVE (NEGATIVE) Urine Bilirubin NEGATIVE (NEGATIVE) Urine Urobilinogen NEGATIVE (0-1) mg/dL Ur Leukocyte Esterase TRACE (NEGATIVE) Urine WBC (Auto) 16-25 (0-5) /HPF Urine RBC (Auto) 3-5 (0-2) /HPF U Epithel Cells (Auto) RARE (FEW) /HPF Urine Bacteria (Auto) NONE (NEGATIVE) /HPF Urine Mucus (Auto) SLIGHT (NEGATIVE) /HPF Urine Culture Reflexed NO (NO) Urine Glucose >=500 (NEGATIVE) mg/dL SARS-CoV-2 (PCR) NEGATIVE (NEGATIVE) Group A Strep Antibody NOT DETECTED (NEGATIVE) - Progress Progress: improved, re-examined Air Movement: good Progress Note: 10/24/20 12:55 55 years old is evaluated for migraine headache, similar to previous episode and not the worst headache of her life with nonfocal neuro exam. Given symptomatic treatment, on reevaluation her headache is resolved. Has negative strep and Covid. Does have UTI and started on Macrobid. Recommended outpatient follow- up. Discussed signs symptoms of worsening needing return to ER which she seems understanding. Blood Culture(s) Obtained: No Antibiotics given: Yes Counseled pt/family regarding: lab results, diagnosis, need for follow-up - Departure Departure Disposition: Home Clinical Impression: Acute UTI Migraine headache Qualifiers: Migraine type: unspecified Status migrainosus presence: without status migrainosus Intractability: not intractable Qualified Code(s): G43.909 - Migraine, unspecified, not intractable, without status migrainosus Condition: Stable Critical Care Time: No Referrals: VAIBHAV CHURCHILL MD [Primary Care Provider] - (1-2 days for reevaluation) Instructions: Headache, Adult (DC) Additional Instructions: Continue with your migraine meds as needed. Follow-up with primary care for reevaluation. Return to ER for intractable headache, numbness tingling weakness, visual disturbance Prescriptions: Nitrofurantoin Macro 100 mg [Macrobid 100MG Capsule] 100 mg PO BID #14 cap
[2020-10-24] MEDS ORDERED: Macrobid 100MG Capsule ONE (13:01)
== END 2020-10-24 13:13 | disposition home or self-care (01) ==
LOC: ED 10:21
DX: N39.0 Urinary tract infection, site not specified (principal); G43.909 Migraine, unspecified, not intractable, without status migrainosus; I50.9 Heart failure, unspecified; J44.9 Chronic obstructive pulmonary disease, unspecified; E11.9 Type 2 diabetes mellitus without complications; E05.90 Thyrotoxicosis, unspecified without thyrotoxic crisis or storm
CPT/HCPCS: 81001; 87651; 93926; 96372; 99284; U0003; J2300; J2405; A9270-GY

== ENCOUNTER 2020-11-11 07:32 | Emergency (ER) | payer MEDICARE ==
[2020-11-11 07:49] VITALS: BP 152/73; PULSE 84; O2SAT 97
[2020-11-11] MEDS ORDERED: Norflex 60 MG/2 ML IV ONE (07:50)
[2020-11-11] MEDS ORDERED: Norflex 60 MG/2 ML ONE (07:55)
[2020-11-11 08:08] LABS: Absolute Neutrophil Ct (ANC) 3.76 (1.4-6.9); BASOPHIL % 0.6 % (0.0-0.4); Basophil (Absolute #) 0.04 (0-0.4); Eosinophil (Absolute #) 0.19 (0-0.5); Hematocrit 38.7 % (35-47); Lymphocyte (Absolute #) 1.98 (1.0-4.6); Lymphocytes % 30.8 % (24.0-44.0); Mean Cell Volume 83.2 fl (78-100); Mean Corpuscular Hemoglobin 30.1 pg (26-32); Mean Corpuscular Hgb Concent. 36.2 g/dl (32-36); Mean Platelet Volume 11.9 fl (7.5-11.0); Monocyte (Absolute #) 0.45 (0.0-1.3); Neutrophil % 58.6 % (36.0-66.0); Platelet Count 177 K/mm3 (150-450); Red Blood Count 4.65 M/mm3 (4.1-5.4); Red Cell Distribution Width 12.9 % (11.5-14.0); White Blood Count 6.4 K/mm3 (4.0-10.5)
[2020-11-11 08:14] LABS: ALBUMIN 3.9 g/dL (3.5-5.0); ANION GAP 17.5 MEQ/L (5-15); BILIRUBIN,TOTAL 0.3 mg/dL (0.2-1.3); Calcium 9.4 mg/dL (8.4-10.2); Creatinine 1 1.16 mg/dL (0.52-1.04); EST GLOMERULAR FILTRATION RATE 51.9 ML/MIN; Potassium 4.5 mmol/L (3.5-5.1); Total Protein 7.5 g/dL (6.3-8.2)
[2020-11-11] MEDS ORDERED: Hydromorphone 1 mg/ml Injection IV ONE (08:18)
[2020-11-11] MEDS ORDERED: Hydromorphone 1 mg/ml Injection ONE (08:20)
[2020-11-11 08:25] LABS: Epithelial Cells RARE /HPF (FEW); Hyaline Casts 0-2 /LPF (0-2); Mucus SLIGHT /HPF (NEGATIVE)
[2020-11-11 08:26] LABS: Budding Yeast Few /HPF (NEGATIVE)
[2020-11-11 08:45] LABS: TSH, 3RD Generation 19.6 mIU/L (0.47-4.68)
[2020-11-11 08:45] LABS: Appearance CLEAR (CLEAR); Leukocyte Esterase NEGATIVE (NEGATIVE); Nitrite NEGATIVE (NEGATIVE); Ph 5.5 (5-6); Specific Gravity 1.025 (1.005-1.025)
[2020-11-11 08:46] LABS: Bilirubin NEGATIVE (NEGATIVE); Blood SMALL Ery/ul (0-5); Glucose 500 mg/dL (NEGATIVE); Ketones NEGATIVE (NEGATIVE); Urobilinogen 0.2 mg/dL (0-1)
--- NOTE | 2020-11-11 08:50 | ERPHSYRPT ---
- History of Present Illness Time Seen by Provider: 11/11/20 07:50 Source: patient, family Exam Limitations: no limitations Patient Subjective Stated Complaint: maria luisa leg pain Triage Nursing Assessment: Patient brought back to ED via w/c and transferred self to bed. Patient A+O X3. Patient's skin pink, warm and dry. Patient complains of maria luisa lower extremity more left leg cramping and left hand cramping for the past two hours. Patient complains of pain 8/10. Patient states she had a doppler done to left leg that was ok a few weeks ago. Maria Luisa legs pink, warm and dry with strong equal pulses. Left hand noted to have good pulses. Physician History: Patient is a 55-year-old female who presents with a complaint of charley horses in both legs and cramping and drawing in of her left hand. This started 24 hours ago. She does take 4 mg of Bumex a day but is also on 20 mEq of potassium chloride per day. She had a left leg Doppler arterial approximately 2 weeks ago in the left leg for numbness she also has hyperthyroid and diabetic. Timing/Duration: yesterday Severity: moderate Modifying Factors: Improves With: movement Associated Symptoms: denies symptoms Allergies/Adverse Reactions: adhesive Allergy (Intermediate, Verified 11/11/20 07:38) Rash ciprofloxacin HCl [From Cipro] Allergy (Intermediate, Verified 11/11/20 07:38) Rash gatifloxacin [From Tequin] Allergy (Intermediate, Verified 11/11/20 07:38) Rash levofloxacin [From Levaquin] Allergy (Intermediate, Verified 11/11/20 07:38) Rash aspirin Allergy (Verified 11/11/20 07:38) bupropion HCl [From Wellbutrin] Allergy (Verified 11/11/20 07:38) carisoprodol [From Soma] Allergy (Verified 11/11/20 07:38) cefaclor [From Ceclor] Allergy (Verified 11/11/20 07:38) ceftibuten dihydrate [From Cedax] Allergy (Verified 11/11/20 07:38) cephalexin monohydrate [From Keflex] Allergy (Verified 11/11/20 07:38) clarithromycin [From Biaxin] Allergy (Verified 11/11/20 07:38) clotrimazole [From Lotrimin] Allergy (Verified 11/11/20 07:38) codeine [Codeine] Allergy (Verified 11/11/20 07:38) doxycycline Allergy (Verified 11/11/20 07:38) erythromycin base [Erythromycin Base] Allergy (Verified 11/11/20 07:38) ketorolac tromethamine [From Toradol] Allergy (Verified 11/11/20 07:38) loracarbef [From Lorabid] Allergy (Verified 11/11/20 07:38) meperidine HCl [From Demerol] Allergy (Verified 11/11/20 07:38) morphine Allergy (Verified 11/11/20 07:38) Norgestimate-Ethi *RETIRED-07/08/12 [From Ortho Tri-Cyclen (21)] Allergy (Verified 11/11/20 07:38) Penicillins Allergy (Verified 11/11/20 07:38) prochlorperazine edisylate [From Compazine] Allergy (Verified 11/11/20 07:38) promethazine [From Phenergan] Allergy (Verified 11/11/20 07:38) Hives promethazine HCl [From Phenergan] Allergy (Verified 11/11/20 07:38) Sulfa (Sulfonamide Antibiotics) [Sulfa(Sulfonamide Antibiotics)] Allergy (Verified 11/11/20 07:38) sumatriptan [From Imitrex] Allergy (Verified 11/11/20 07:38) melon Adverse Reaction (Verified 11/11/20 07:38) Home Medications: Budesonide/Formoterol Fumarate [Symbicort 160-4.5 Mcg Inhaler] 2 puff IH BID 10/10/15 [History] Bumetanide [Bumex] 4 mg PO DAILY 10/10/15 [History] Cholecalciferol (Vitamin D3) [Vitamin D3] 2,000 unit PO UD 10/10/15 [History] Fenofibrate 160 mg PO DAILY 10/10/15 [History] Montelukast Sodium 25 mg PO DAILY 10/10/15 [History] Nitroglycerin 0.4 mg Tablet [Nitrostat 0.4 MG Tablet] 0.4 mg SL Q5MIN PRN MR X 3 PRN 10/10/15 [History] PANTOPRAZOLE 40 mg Tablet [Protonix 40MG Tablet] 40 mg PO DAILY 10/10/15 [History] Polyethylene Glycol 3350 17 gm [Miralax Powder 17GM PACKET] 17 gm PO UD PRN 10/10/15 [History] Potassium Chloride 20 Meq [Klor-Con 20 MEQ] 20 meq PO DAILY 10/10/15 [History] Divalproex Sodium [Divalproex Sodium ER] 500 mg PO BID 03/06/16 [History] Albuterol 2.5 mg/3 ml Neb [Proventil 2.5 mg/3 ml Neb] 1 ea IH QID PRN PRN 07/08/18 [History] Albuterol Sulfate [Proair Hfa] 2 puffs IH QID 07/08/18 [History] Rosuvastatin Calcium [Crestor] 40 mg PO DAILY 07/08/18 [History] Levothyroxine Sodium 112 Mcg [Synthroid 112 Mcg] 212 mcg PO DAILY 07/28/18 [History] Famotidine [Pepcid] 40 mg PO BID 07/18/19 [History] Fluticasone Propionate [Flonase NASAL] 2 sprays .ROUTE BID 07/18/19 [History] Diphenhydramine HCl 25 mg [Benadryl 25 mg Capsule] 25 mg PO Q4H PRN PRN 08/17/19 [History] Lisinopril 10 mg [Zestril 10 MG] 20 mg PO DAILY 08/17/19 [History] Magnesium Oxide 400 mg [Mag-Ox 400] 400 mg PO TID 08/17/19 [History] Cyclobenzaprine HCl 10 mg [Cyclobenzaprine 10 MG] 10 mg PO HS 03/31/20 [History] Erenumab-Aooe [Aimovig Autoinjector] 140 mg SQ UD 03/31/20 [History] Hydrocodone/APAP 5-325 Tab^^^ [[place] 5-325 Tablet^^^] 1 each PO QID MDD 6 03/31/20 [History] Insulin Degludec [Tresiba] 50 unit SQ TID 03/31/20 [History] Lubiprostone [Amitiza] 24 mcg PO DAILY 03/31/20 [History] Topiramate [Topamax] 50 mg PO BID 03/31/20 [History] Ondansetron [Ondansetron Odt] 8 mg PO Q6-8HPRN PRN 10/24/20 [History] Rimegepant Sulfate [Nurtec Odt] 75 mg PO Q12H PRN PRN 10/24/20 [History] Hx Tetanus, Diphtheria Vaccination/Date Given: No Hx Influenza Vaccination/Date Given: Yes Hx Pneumococcal Vaccination/Date Given: No Immunizations Up to Date: Yes Travel Risk - International Travel Have you traveled outside of the country in past 3 weeks: No - Coronavirus Screening Are you exhibiting any of the following symptoms?: No Close contact with a COVID-19 positive Pt in past 14-21 Days: No - Vaccine Status Have you recieved a Covid-19 vaccination: Yes 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 - Vaccination Dates Date of 2cond Vaccination (if applicable): August 31, 2020 - Review of Systems Constitutional: No Fever, No Chills Eyes: No Symptoms Ears, Nose, & Throat: No Symptoms Respiratory: No Cough, No Dyspnea Cardiac: No Chest Pain, No Edema, No Syncope Abdominal/Gastrointestinal: No Abdominal Pain, No Nausea, No Vomiting, No Diarrhea Genitourinary Symptoms: No Dysuria Musculoskeletal: Myalgias (Muscle cramping), No Back Pain, No Neck Pain Skin: No Rash Neurological: No Dizziness, No Focal Weakness, No Sensory Changes Psychological: No Symptoms Endocrine: No Symptoms All Other Systems: Reviewed and Negative - Past Medical History Pertinent Past Medical History: Yes Neurological History: Migraines ENT History: Cataracts Cardiac History: Arrhythmia, Congestive Heart Failure, Other Respiratory History: Asthma, Bronchitis, COPD, Sleep Apnea Endocrine Medical History: Diabetes Type II, Hyperthyroidism Musculoskeletal History: Fibromyalgia, Osteoarthritis GI Medical History: GERD, Irritable Bowel History: Other Psycho-Social History: Anxiety, Bipolar, Depression, Other Female Reproductive Disorders: No Pertinent History Other Medical History: 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 PTSD - Past Surgical History Past Surgical History: Yes Neuro Surgical History: No Pertinent History Cardiac: Cardiac Catheterization Respiratory: No Pertinent History Gastrointestinal: Cholecystectomy Genitourinary: No Pertinent History Musculoskeletal: No Pertinent History Female Surgical History: Hysterectomy Other Surgical History: rt and lt carpal tunnel, trigger finger, tendon on right arm, ulnar nerve surgery, clipped left eye muscle, lt knee. lt shoulder, spinal block - Social History Smoking Status: Current every day smoker How long have you smoked: 40 Exposure to second hand smoke: No Drug Use: none Patient Lives Alone: No Significant Family History: no pertinent family hx - Female History Hx Now: No - Nursing Vital Signs Nursing Vital Signs: Initial Vital Signs Temperature 97.7 F 11/11/20 07:41 Pulse Rate 84 11/11/20 07:41 Respiratory Rate 18 11/11/20 07:41 Blood Pressure 152/73 11/11/20 07:41 O2 Sat by Pulse Oximetry 97 11/11/20 07:41 Pain Scale Pain Intensity 8 - Physical Exam General Appearance: mild distress, alert Eye Exam: PERRL/EOMI, eyes nml inspection Ears, Nose, Throat Exam: normal ENT inspection, TMs normal, pharynx normal, moist mucous membranes Neck Exam: normal inspection, non-tender, supple, full range of motion Respiratory Exam: normal breath sounds, lungs clear, No respiratory distress Cardiovascular Exam: regular rate/rhythm, normal heart sounds, normal peripheral pulses Gastrointestinal/Abdomen Exam: soft, normal bowel sounds, No tenderness, No mass Back Exam: normal inspection, 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 of motion, No CVA tenderness, No vertebral tenderness Extremity Exam: normal inspection, 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 of motion, pelvis stable Neurologic Exam: alert, 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, cooperative, normal mood/affect, nml cerebellar function, nml station & gait, sensation nml, No motor deficits Skin Exam: normal color, warm, dry, No rash Lymphatic Exam: No adenopathy SpO2 Interpretation: normal SpO2: 97 O2 Delivery: Room Air - Course Nursing assessment & vital signs reviewed: Yes Ordered Tests: Active Orders 24 hr Category Date Time Status IV Insertion STAT Care 11/11/20 07:46 Active CBC W DIFF Stat Lab 11/11/20 07:50 Completed CK (IN-HOUSE) [CK-Creatinine Phosphokinase] Stat Lab 11/11/20 07:50 Received CMP Stat Lab 11/11/20 07:50 Completed D-DIMER QUANTITATIVE Stat Lab 11/11/20 07:50 Completed Lactic Acid Stat Lab 11/11/20 07:46 Ordered TSH [TSH, 3RD Generation] Stat Lab 11/11/20 07:50 Received UA W/RFX UR CULTURE Stat Lab 11/11/20 08:07 Received Medication Summary Discontinued Medications Generic Name Dose Route Start Last Admin Trade Name Bety PRN Reason Stop Dose Admin Hydromorphone HCl 1 mg 11/11/20 08:18 11/11/20 08:21 Hydromorphone 1 Mg/Ml Injection IV 11/11/20 08:19 1 mg STAT ONE Administration Hydromorphone HCl Confirm 11/11/20 08:20 Hydromorphone 1 Mg/Ml Injection Administered 11/11/20 08:21 Dose 1 mg .ROUTE .STK-MED ONE Orphenadrine Citrate 60 mg 11/11/20 07:50 11/11/20 07:56 Norflex 60 Mg/2 Ml IV 11/11/20 07:51 60 mg STAT ONE Administration Orphenadrine Citrate Confirm 11/11/20 07:55 Norflex 60 Mg/2 Ml Administered 11/11/20 07:56 Dose 60 mg .ROUTE .STK-MED ONE Lab/Rad Data: Laboratory Result Diagrams 11/11/20 07:50 11/11/20 07:50 Laboratory Results 11/11/20 11/11/20 11/11/20 Range/Units 08:07 07:50 07:50 WBC (4.0-10.5) K/mm3 RBC (4.1-5.4) M/mm3 Hgb (12.0-16.0) gm/dl Hct (35-47) % MCV (78-100) fl MCH (26-32) pg MCHC (32-36) g/dl RDW (11.5-14.0) % Plt Count (150-450) K/mm3 MPV (7.5-11.0) fl Gran % (36.0-66.0) % Eos # (Auto) (0-0.5) Absolute Lymphs (auto) (1.0-4.6) Absolute Monos (auto) (0.0-1.3) Lymphocytes % (24.0-44.0) % Monocytes % (0.0-12.0) % Eosinophils % (0.00-5.0) % Basophils % (0.0-0.4) % Absolute Granulocytes (1.4-6.9) Basophils # (0-0.4) D-Dimer 466 (215-500) ng/mL Sodium (137-145) mmol/L Potassium (3.5-5.1) mmol/L Chloride (98-107) mmol/L Carbon Dioxide (22-30) mmol/L Anion Gap (5-15) MEQ/L BUN (7-17) mg/dL Creatinine (0.52-1.04) mg/dL Estimated GFR ML/MIN Glucose (74-106) mg/dL Calcium (8.4-10.2) mg/dL Total Bilirubin (0.2-1.3) mg/dL AST (14-36) U/L ALT (0-35) U/L Alkaline Phosphatase (38-126) U/L Creatine Kinase 38 (30-135) U/L Serum Total Protein (6.3-8.2) g/dL Albumin (3.5-5.0) g/dL TSH 3rd Generation 19.600 H (0.47-4.68) mIU/L Urine Color YELLOW (YELLOW) Urine Appearance CLEAR (CLEAR) Urine pH 5.5 (5-6) Ur Specific [place] 1.025 (1.005-1.025) Urine Protein 100 mg/dL (Negative) Urine Ketones NEGATIVE (NEGATIVE) Urine Blood SMALL (0-5) Joseluis/ul Urine Nitrite NEGATIVE (NEGATIVE) Urine Bilirubin NEGATIVE (NEGATIVE) Urine Urobilinogen 0.2 (0-1) mg/dL Ur Leukocyte Esterase NEGATIVE (NEGATIVE) Urine WBC (Auto) 3-5 (0-5) /HPF Urine RBC (Auto) 6-10 (0-2) /HPF U Hyaline Cast (Auto) 0-2 (0-2) /LPF U Epithel Cells (Auto) RARE (FEW) /HPF Urine Bacteria (Auto) NONE SEEN (NEGATIVE) /HPF Urine Mucus (Auto) SLIGHT (NEGATIVE) /HPF Urine Yeast (Budding) Few (NEGATIVE) /HPF Urine Culture Reflexed NO (NO) Urine Glucose 500 (NEGATIVE) mg/dL 11/11/20 11/11/20 Range/Units 07:50 07:50 WBC 6.4 (4.0-10.5) K/mm3 RBC 4.65 (4.1-5.4) M/mm3 Hgb 14.0 (12.0-16.0) gm/dl Hct 38.7 (35-47) % MCV 83.2 (78-100) fl MCH 30.1 (26-32) pg MCHC 36.2 H (32-36) g/dl RDW 12.9 (11.5-14.0) % Plt Count 177 (150-450) K/mm3 MPV 11.9 H (7.5-11.0) fl Gran % 58.6 (36.0-66.0) % Eos # (Auto) 0.19 (0-0.5) Absolute Lymphs (auto) 1.98 (1.0-4.6) Absolute Monos (auto) 0.45 (0.0-1.3) Lymphocytes % 30.8 (24.0-44.0) % Monocytes % 7.0 (0.0-12.0) % Eosinophils % 3.0 (0.00-5.0) % Basophils % 0.6 (0.0-0.4) % Absolute Granulocytes 3.76 (1.4-6.9) Basophils # 0.04 (0-0.4) D-Dimer (215-500) ng/mL Sodium 123 L (137-145) mmol/L Potassium 4.5 (3.5-5.1) mmol/L Chloride 89 L (98-107) mmol/L Carbon Dioxide 21 L (22-30) mmol/L Anion Gap 17.5 H (5-15) MEQ/L BUN 37 H (7-17) mg/dL Creatinine 1.16 H (0.52-1.04) mg/dL Estimated GFR 51.9 ML/MIN Glucose 496 H (74-106) mg/dL Calcium 9.4 (8.4-10.2) mg/dL Total Bilirubin 0.30 (0.2-1.3) mg/dL AST 23 (14-36) U/L ALT 18 (0-35) U/L Alkaline Phosphatase 178 H (38-126) U/L Creatine Kinase (30-135) U/L Serum Total Protein 7.5 (6.3-8.2) g/dL Albumin 3.9 (3.5-5.0) g/dL TSH 3rd Generation (0.47-4.68) mIU/L Urine Color (YELLOW) Urine Appearance (CLEAR) Urine pH (5-6) Ur Specific [place] (1.005-1.025) Urine Protein (Negative) Urine Ketones (NEGATIVE) Urine Blood (0-5) Joseluis/ul Urine Nitrite (NEGATIVE) Urine Bilirubin (NEGATIVE) Urine Urobilinogen (0-1) mg/dL Ur Leukocyte Esterase (NEGATIVE) Urine WBC (Auto) (0-5) /HPF Urine RBC (Auto) (0-2) /HPF U Hyaline Cast (Auto) (0-2) /LPF U Epithel Cells (Auto) (FEW) /HPF Urine Bacteria (Auto) (NEGATIVE) /HPF Urine Mucus (Auto) (NEGATIVE) /HPF Urine Yeast (Budding) (NEGATIVE) /HPF Urine Culture Reflexed (NO) Urine Glucose (NEGATIVE) mg/dL - Progress Progress: improved Progress Note: 11/11/20 08:47 Patient was found to have a blood sugar of 496 but had not taken her morning insulin. She took 50 units of her own unique fast acting insulin. Her potassium was normal she also pseudohyponatremia due to her hyperglycemia of 123 chloride 89 PO2 21 alk phos 178 anion gap 17.5 lactic acid 3.0. - Departure Departure Disposition: Home Clinical Impression: Hyperglycemia, Muscle cramps Condition: Stable Critical Care Time: No Referrals: VAIBHAV CHURCHILL MD [Primary Care Provider] - Prescriptions: Gabapentin 100 mg [Neurontin 100 MG] 100 mg PO TID 10 Days #30 cap
[2020-11-11 08:51] LABS: Bacteria NONE SEEN /HPF (NEGATIVE)
== END 2020-11-11 09:13 | disposition home or self-care (01) ==
LOC: ED 07:32
DX: R73.9 Hyperglycemia, unspecified (principal); R25.2 Cramp and spasm; M79.605 Pain in left leg; M79.604 Pain in right leg; Z79.899 Other long term (current) drug therapy; I50.9 Heart failure, unspecified; E11.9 Type 2 diabetes mellitus without complications; E05.90 Thyrotoxicosis, unspecified without thyrotoxic crisis or storm
CPT/HCPCS: 36000; 36415; 80053; 81001; 82550; 83605; 84443; 85025; 85379; 96374; 96375; 99284; J1170; J2360

== ENCOUNTER 2021-02-28 01:09 | Emergency (ER) | payer MEDICARE ==
[2021-02-28] MEDS ORDERED: NALBUPHINE 10 MG/1 ML IM ONE (01:39)
[2021-02-28] MEDS ORDERED: BENADRYL 50 MG/ML IM ONE (01:39)
--- NOTE | 2021-02-28 01:42 | ERPHSYRPT ---
- History of Present Illness Time Seen by Provider: 02/28/21 01:29 Source: patient Exam Limitations: no limitations Patient Subjective Stated Complaint: " I have a headache and nausea bad. I've thrown up a few times and I felt like I was going to pass out". Triage Nursing Assessment: Pt presents to ER by ambulance with complaints of frontal headache that "hit her all of a sudden" tonight. She states she started having nausea late last night and vomited a couple of times. She states her pain goes into her chest and sometimes feels short of breath and like she could pass out. Pt states she is wheelchair bound and a heavy smoker. Pt skin is pink, warm, and dry. Respirations are easy. Noted slightly diminished but clear throughout. Timing/Duration: today, constant, gradual onset, worse Quality: sharpness Head Pain Location: frontal, temporal Severity of Pain-Max: severe Severity of Pain-Current: moderate Recent Head Trauma: frequent headaches Associated Symptoms: fatigue, nausea/vomiting, No fever/chills, No light- headedness, No loss of consciousness, No nasal drainage, No neck pain, No numbness in legs/feet, No rash, No sweating, No seizures, No sinus infection, No sensitive to light, No speech problems, No stiff neck, No trouble walking, No vision changes, No visual disturbance, No weakness Previous symptoms: same symptoms as today Allergies/Adverse Reactions: adhesive Allergy (Intermediate, Verified 02/28/21 01:39) Rash ciprofloxacin HCl [From Cipro] Allergy (Intermediate, Verified 02/28/21 01:39) Rash gatifloxacin [From Tequin] Allergy (Intermediate, Verified 02/28/21 01:39) Rash levofloxacin [From Levaquin] Allergy (Intermediate, Verified 02/28/21 01:39) Rash aspirin Allergy (Verified 02/28/21 01:39) bupropion HCl [From Wellbutrin] Allergy (Verified 02/28/21 01:39) carisoprodol [From Soma] Allergy (Verified 02/28/21 01:39) cefaclor [From Ceclor] Allergy (Verified 02/28/21 01:39) ceftibuten dihydrate [From Cedax] Allergy (Verified 02/28/21 01:39) cephalexin monohydrate [From Keflex] Allergy (Verified 02/28/21 01:39) clarithromycin [From Biaxin] Allergy (Verified 02/28/21 01:39) clotrimazole [From Lotrimin] Allergy (Verified 02/28/21 01:39) codeine [Codeine] Allergy (Verified 02/28/21 01:39) doxycycline Allergy (Verified 02/28/21 01:39) erythromycin base [Erythromycin Base] Allergy (Verified 02/28/21 01:39) gabapentin Allergy (Verified 02/28/21 01:39) ketorolac tromethamine [From Toradol] Allergy (Verified 02/28/21 01:39) loracarbef [From Lorabid] Allergy (Verified 02/28/21 01:39) meperidine HCl [From Demerol] Allergy (Verified 02/28/21:39) morphine Allergy (Verified 02/28/21 01:39) Norgestimate-Ethi *RETIRED-07/08/12 [From Ortho Tri-Cyclen (21)] Allergy (Verified 02/28/21 01:39) Penicillins Allergy (Verified 02/28/21 01:39) prochlorperazine edisylate [From Compazine] Allergy (Verified 02/28/21 01:39) promethazine [From Phenergan] Allergy (Verified 02/28/21 01:39) Hives promethazine HCl [From Phenergan] Allergy (Verified 02/28/21 01:39) Sulfa (Sulfonamide Antibiotics) [Sulfa(Sulfonamide Antibiotics)] Allergy (Verified 02/28/21 01:39) sumatriptan [From Imitrex] Allergy (Verified 02/28/21 01:39) haloperidol [From Haldol] Adverse Reaction (Unknown, Verified 02/28/21 01:39) hydromorphone Adverse Reaction (Unknown, Verified 02/28/21 01:39) ketorolac [From Toradol] Adverse Reaction (Unknown, Verified 02/28/21 01:39) lamotrigine [From Lamictal] Adverse Reaction (Unknown, Verified 02/28/21 01:39) sulfamethoxazole [From Bactrim] Adverse Reaction (Unknown, Verified 02/28/21 01:39) terbinafine [From Lamisil] Adverse Reaction (Unknown, Verified 02/28/21 01:39) trimethoprim [From Bactrim] Adverse Reaction (Unknown, Verified 02/28/21 01:39) melon Adverse Reaction (Verified 02/28/21 01:39) Home Medications: Budesonide/Formoterol Fumarate [Symbicort 160-4.5 Mcg Inhaler] 2 puff IH BID 10/10/15 [History] Bumetanide [Bumex] 4 mg PO DAILY 10/10/15 [History] Cholecalciferol (Vitamin D3) [Vitamin D3] 2,000 unit PO UD 10/10/15 [History] Fenofibrate 160 mg PO DAILY 10/10/15 [History] Montelukast Sodium 25 mg PO DAILY 10/10/15 [History] Nitroglycerin 0.4 mg Tablet [Nitrostat 0.4 MG Tablet] 0.4 mg SL Q5MIN PRN MR X 3 PRN 10/10/15 [History] PANTOPRAZOLE 40 mg Tablet [Protonix 40MG Tablet] 40 mg PO DAILY 10/10/15 [History] Polyethylene Glycol 3350 17 gm [Miralax Powder 17GM PACKET] 17 gm PO UD PRN 10/10/15 [History] Potassium Chloride 20 Meq [Klor-Con 20 MEQ] 20 meq PO DAILY 10/10/15 [History] Divalproex Sodium [Divalproex Sodium ER] 500 mg PO BID 03/06/16 [History] Albuterol 2.5 mg/3 ml Neb [Proventil 2.5 mg/3 ml Neb] 1 ea IH QID PRN PRN 07/08/18 [History] Albuterol Sulfate [Proair Hfa] 2 puffs IH QID 07/08/18 [History] Rosuvastatin Calcium [Crestor] 40 mg PO DAILY 07/08/18 [History] Levothyroxine Sodium 112 Mcg [Synthroid 112 Mcg] 212 mcg PO DAILY 07/28/18 [History] Famotidine [Pepcid] 40 mg PO BID 07/18/19 [History] Fluticasone Propionate [Flonase NASAL] 2 sprays .ROUTE BID 07/18/19 [History] Diphenhydramine HCl 25 mg [Benadryl 25 mg Capsule] 25 mg PO Q4H PRN PRN 08/17/19 [History] Lisinopril 10 mg [Zestril 10 MG] 20 mg PO DAILY 08/17/19 [History] Magnesium Oxide 400 mg [Mag-Ox 400] 400 mg PO TID 08/17/19 [History] Cyclobenzaprine HCl 10 mg [Cyclobenzaprine 10 MG] 10 mg PO HS 03/31/20 [History] Erenumab-Aooe [Aimovig Autoinjector] 140 mg SQ UD 03/31/20 [History] Hydrocodone/APAP 5-325 Tab^^^ [[place] 5-325 Tablet^^^] 1 each PO QID MDD 6 03/31/20 [History] Insulin Degludec [Tresiba] 50 unit SQ TID 03/31/20 [History] Lubiprostone [Amitiza] 24 mcg PO DAILY 03/31/20 [History] Topiramate [Topamax] 50 mg PO BID 03/31/20 [History] Ondansetron [Ondansetron Odt] 8 mg PO Q6-8HPRN PRN 10/24/20 [History] Rimegepant Sulfate [Nurtec Odt] 75 mg PO Q12H PRN PRN 10/24/20 [History] Hx Tetanus, Diphtheria Vaccination/Date Given: Yes Hx Influenza Vaccination/Date Given: Yes Hx Pneumococcal Vaccination/Date Given: No Immunizations Up to Date: Yes Travel Risk - International Travel Have you traveled outside of the country in past 3 weeks: No - Coronavirus Screening Are you exhibiting any of the following symptoms?: Yes Symptoms: Shortness of Breath, Vomiting/Diarrhea, Headaches/Body Aches/Fatigue Close contact with a COVID-19 positive Pt in past 14-21 Days: No - Vaccine Status Have you recieved a Covid-19 vaccination: Yes [employer]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 - Vaccination Dates Dates if Unknown: unknown - Review of Systems Constitutional: No Symptoms Eyes: No Symptoms Ears, Nose, & Throat: No Symptoms Respiratory: No Symptoms Cardiac: No Symptoms Abdominal/Gastrointestinal: Nausea, Vomiting Genitourinary Symptoms: No Symptoms Musculoskeletal: No Symptoms Skin: No Symptoms Neurological: Headache Psychological: No Symptoms Endocrine: No Symptoms Hematologic/Lymphatic: No Symptoms Immunological/Allergic: No Symptoms - Past Medical History Pertinent Past Medical History: Yes Neurological History: Migraines ENT History: Cataracts Cardiac History: Arrhythmia, Congestive Heart Failure, Other Respiratory History: Asthma, Bronchitis, COPD, Sleep Apnea Endocrine Medical History: Diabetes Type II, Hyperthyroidism Musculoskeletal History: Fibromyalgia, Osteoarthritis GI Medical History: GERD, Irritable Bowel History: Other Psycho-Social History: Anxiety, Bipolar, Depression, Other Female Reproductive Disorders: No Pertinent History Other Medical History: 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 PTSD - Past Surgical History Past Surgical History: Yes Neuro Surgical History: No Pertinent History Cardiac: Cardiac Catheterization Respiratory: No Pertinent History Gastrointestinal: Cholecystectomy Genitourinary: No Pertinent History Musculoskeletal: No Pertinent History Female Surgical History: Hysterectomy Other Surgical History: rt and lt carpal tunnel, trigger finger, tendon on right arm, ulnar nerve surgery, clipped left eye muscle, lt knee. lt shoulder, spinal block - Social History Smoking Status: Current every day smoker How long have you smoked: 40 Exposure to second hand smoke: No Drug Use: none Patient Lives Alone: No Significant Family History: no pertinent family hx - Female History Hx Now: No - Nursing Vital Signs Nursing Vital Signs: Initial Vital Signs Temperature 97.4 F 02/28/21 01:16 Pulse Rate 77 02/28/21 01:16 Respiratory Rate 24 02/28/21 01:16 Blood Pressure 117/67 02/28/21 01:16 O2 Sat by Pulse Oximetry 100 02/28/21 01:16 Pain Scale Pain Intensity 9 - Physical Exam General Appearance: no apparent distress, alert Eye Exam: PERRL/EOMI Ears, Nose, Throat Exam: normal ENT inspection, TMs normal, pharynx normal, moist mucous membranes Neck Exam: normal inspection, non-tender, supple, full range of motion Respiratory Exam: normal breath sounds, lungs clear Cardiovascular Exam: regular rate/rhythm, normal heart sounds Gastrointestinal/Abdominal Exam: soft, normal bowel sounds, No tenderness, No distention Back Exam: normal inspection Extremity Exam: normal inspection, 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 of motion, pelvis stable 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, 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, 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 Exam: normal hearing, normal speech, PERRL Coordination/Gait Exam: normal finger to nose, normal cerebellar function Motor/Sensory Exam: no motor deficit, no sensory deficit, no pronator drift, negative Babinski's sign DTR Exam: bicep (R): 2+, bicep (L): 2+, knee (R): 2+, knee (L): 2+ Skin Exam: normal color SpO2 Interpretation: normal SpO2: 100 O2 Delivery: Room Air Ordered Tests: Medication Summary Discontinued Medications Generic Name Dose Route Start Last Admin Trade Name Bety PRN Reason Stop Dose Admin Diphenhydramine HCl 25 mg 02/28/21 01:39 Diphenhydramine Hcl 50 Mg/Ml Vial IM 02/28/21 01:40 STAT ONE Nalbuphine HCl 10 mg 02/28/21 01:39 Nalbuphine Hcl 10 Mg/1 Ml Injection IM 02/28/21 01:40 STAT ONE - Departure Departure Disposition: Home Clinical Impression: Migraine headache Qualifiers: Migraine type: unspecified Status migrainosus presence: without status migrainosus Intractability: not intractable Qualified Code(s): G43.909 - Migraine, unspecified, not intractable, without status migrainosus Condition: Stable Critical Care Time: No Referrals: VAIBHAV CHURCHILL MD [Primary Care Provider] - Follow up/PCP as directed (1-2 days for reevaluation) DEB GOLDMAN [NON-STAFF PHY W/O PRIVILEGES] - Follow up/PCP as directed (Call in morning for appointment) Instructions: Headache, Adult (DC) Additional Instructions: Continue with your current medications for headache. Follow-up with primary care and neurology for reevaluation. Return to ER for worsening headache, numbness tingling focal weakness etc.
[2021-02-28 02:27] VITALS: BP 133/74; PULSE 71; O2SAT 98
== END 2021-02-28 03:00 | disposition home or self-care (01) ==
LOC: ED 01:09
DX: G43.909 Migraine, unspecified, not intractable, without status migrainosus (principal); R11.2 Nausea with vomiting, unspecified; R53.83 Other fatigue; I50.9 Heart failure, unspecified; E11.42 Type 2 diabetes mellitus with diabetic polyneuropathy; Z79.4 Long term (current) use of insulin; Z79.891 Long term (current) use of opiate analgesic; Z72.0 Tobacco use
CPT/HCPCS: 96372; 99284; J1200; J2300

== ENCOUNTER 2021-03-09 23:00 | Emergency (ER) | payer MEDICARE ==
--- NOTE | 2021-03-09 23:58 | ERPHSYRPT ---
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 no traumas, but has had prior left eye retinal damage altering that visual field but reports no change that she can discern tonight in that condition. 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 no reported head trauma or blood thinners. Timing/Duration: today Quality: dullness, fullness Severity of Pain-Max: moderate Severity of Pain-Current: moderate Recent Head Trauma: no recent headache/trauma, frequent headaches, chronic headaches Associated Symptoms: sensitive to light Previous symptoms: same symptoms as today Allergies/Adverse Reactions: adhesive Allergy (Intermediate, Verified 03/09/21 23:15) Rash ciprofloxacin HCl [From Cipro] Allergy (Intermediate, Verified 03/09/21 23:15) Rash gatifloxacin [From Tequin] Allergy (Intermediate, Verified 03/09/21 23:15) Rash levofloxacin [From Levaquin] Allergy (Intermediate, Verified 03/09/21 23:15) Rash aspirin Allergy (Verified 03/09/21 23:15) bupropion HCl [From Wellbutrin] Allergy (Verified 03/09/21 23:15) carisoprodol [From Soma] Allergy (Verified 03/09/21 23:15) cefaclor [From Ceclor] Allergy (Verified 03/09/21 23:15) ceftibuten dihydrate [From Cedax] Allergy (Verified 03/09/21 23:15) cephalexin monohydrate [From Keflex] Allergy (Verified 03/09/21 23:15) clarithromycin [From Biaxin] Allergy (Verified 03/09/21 23:15) clotrimazole [From Lotrimin] Allergy (Verified 03/09/21 23:15) codeine [Codeine] Allergy (Verified 03/09/21 23:15) doxycycline Allergy (Verified 03/09/21 23:15) erythromycin base [Erythromycin Base] Allergy (Verified 03/09/21 23:15) gabapentin Allergy (Verified 03/09/21 23:15) ketorolac tromethamine [From Toradol] Allergy (Verified 03/09/21 23:15) loracarbef [From Lorabid] Allergy (Verified 03/09/21 23:15) meperidine HCl [From Demerol] Allergy (Verified 03/09/21 23:15) morphine Allergy (Verified 03/09/21 23:15) Norgestimate-Ethi *RETIRED-07/08/12 [From Ortho Tri-Cyclen (21)] Allergy (Verified 03/09/21 23:15) Penicillins Allergy (Verified 03/09/21 23:15) prochlorperazine edisylate [From Compazine] Allergy (Verified 03/09/21 23:15) promethazine [From Phenergan] Allergy (Verified 03/09/21 23:15) Hives promethazine HCl [From Phenergan] Allergy (Verified 03/09/21 23:15) Sulfa (Sulfonamide Antibiotics) [Sulfa(Sulfonamide Antibiotics)] Allergy (Verified 03/09/21 23:15) sumatriptan [From Imitrex] Allergy (Verified 03/09/21 23:15) haloperidol [From Haldol] Adverse Reaction (Unknown, Verified 03/09/21 23:15) hydromorphone Adverse Reaction (Unknown, Verified 03/09/21 23:15) ketorolac [From Toradol] Adverse Reaction (Unknown, Verified 03/09/21 23:15) lamotrigine [From Lamictal] Adverse Reaction (Unknown, Verified 03/09/21 23:15) sulfamethoxazole [From Bactrim] Adverse Reaction (Unknown, Verified 03/09/21 23:15) terbinafine [From Lamisil] Adverse Reaction (Unknown, Verified 03/09/21 23:15) trimethoprim [From Bactrim] Adverse Reaction (Unknown, Verified 03/09/21 23:15) melon Adverse Reaction (Verified 12/24/21 23:15) Home Medications: Budesonide/Formoterol Fumarate [Symbicort 160-4.5 Mcg Inhaler] 2 puff IH BID 10/10/15 [History] Bumetanide [Bumex] 4 mg PO DAILY 10/10/15 [History] Cholecalciferol (Vitamin D3) [Vitamin D3] 2,000 unit PO UD 10/10/15 [History] Fenofibrate 160 mg PO DAILY 10/10/15 [History] Montelukast Sodium 25 mg PO DAILY 10/10/15 [History] Nitroglycerin 0.4 mg Tablet [Nitrostat 0.4 MG Tablet] 0.4 mg SL Q5MIN PRN MR X 3 PRN 10/10/15 [History] PANTOPRAZOLE 40 mg Tablet [Protonix 40MG Tablet] 40 mg PO DAILY 10/10/15 [History] Polyethylene Glycol 3350 17 gm [Miralax Powder 17GM PACKET] 17 gm PO UD PRN 10/10/15 [History] Potassium Chloride 20 Meq [Klor-Con 20 MEQ] 20 meq PO DAILY 10/10/15 [History] Divalproex Sodium [Divalproex Sodium ER] 500 mg PO BID 03/06/16 [History] Albuterol 2.5 mg/3 ml Neb [Proventil 2.5 mg/3 ml Neb] 1 ea IH QID PRN PRN 07/08/18 [History] Albuterol Sulfate [Proair Hfa] 2 puffs IH QID 07/08/18 [History] Rosuvastatin Calcium [Crestor] 40 mg PO DAILY 07/08/18 [History] Levothyroxine Sodium 112 Mcg [Synthroid 112 Mcg] 212 mcg PO DAILY 07/28/18 [History] Famotidine [Pepcid] 40 mg PO BID 07/18/19 [History] Fluticasone Propionate [Flonase NASAL] 2 sprays .ROUTE BID 07/18/19 [History] Diphenhydramine HCl 25 mg [Benadryl 25 mg Capsule] 25 mg PO Q4H PRN PRN 08/17/19 [History] Lisinopril 10 mg [Zestril 10 MG] 20 mg PO DAILY 08/17/19 [History] Magnesium Oxide 400 mg [Mag-Ox 400] 400 mg PO TID 08/17/19 [History] Cyclobenzaprine HCl 10 mg [Cyclobenzaprine 10 MG] 10 mg PO HS 03/31/20 [History] Erenumab-Aooe [Aimovig Autoinjector] 140 mg SQ UD 03/31/20 [History] Hydrocodone/APAP 5-325 Tab^^^ [[place] 5-325 Tablet^^^] 1 each PO QID MDD 6 03/31/20 [History] Insulin Degludec [Tresiba] 50 unit SQ TID 03/31/20 [History] Lubiprostone [Amitiza] 24 mcg PO DAILY 03/31/20 [History] Topiramate [Topamax] 50 mg PO BID 03/31/20 [History] Ondansetron [Ondansetron Odt] 8 mg PO Q6-8HPRN PRN 10/24/20 [History] Rimegepant Sulfate [Nurtec Odt] 75 mg PO Q12H PRN PRN 10/24/20 [History] Hx Tetanus, Diphtheria Vaccination/Date Given: Yes Hx Influenza Vaccination/Date Given: Yes Hx Pneumococcal Vaccination/Date Given: Yes Travel Risk - International Travel Have you traveled outside of the country in past 3 weeks: No - Coronavirus Screening Are you exhibiting any of the following symptoms?: No Close contact with a COVID-19 positive Pt in past 14-21 Days: No - Vaccine Status Have you recieved a Covid-19 vaccination: Yes 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 - Vaccination Dates Date of 2cond Vaccination (if applicable): 09/04 Dates if Unknown: unknown - Review of Systems Constitutional: No Fever, No Chills Eyes: No Symptoms Ears, Nose, & Throat: No Symptoms Respiratory: No Cough, No Dyspnea Cardiac: No Chest Pain, No Edema, No Syncope Abdominal/Gastrointestinal: No Abdominal Pain, No Nausea, No Vomiting, No Diarrhea Genitourinary Symptoms: No Dysuria Musculoskeletal: No Back Pain, No Neck Pain Skin: No Rash Neurological: No Dizziness, No Focal Weakness, No Sensory Changes Psychological: No Symptoms Endocrine: No Symptoms Hematologic/Lymphatic: No Symptoms Immunological/Allergic: No Symptoms All Other Systems: Reviewed and Negative - Past Medical History Pertinent Past Medical History: Yes Neurological History: Migraines ENT History: Cataracts Cardiac History: Arrhythmia, Congestive Heart Failure, Other Respiratory History: Asthma, Bronchitis, COPD, Sleep Apnea Endocrine Medical History: Diabetes Type II, Hyperthyroidism Musculoskeletal History: Fibromyalgia, Osteoarthritis GI Medical History: GERD, Irritable Bowel History: Other Psycho-Social History: Anxiety, Bipolar, Depression, Other Female Reproductive Disorders: No Pertinent History Other Medical History: 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 PTSD - Past Surgical History Past Surgical History: Yes Neuro Surgical History: No Pertinent History Cardiac: Cardiac Catheterization Respiratory: No Pertinent History Gastrointestinal: Cholecystectomy Genitourinary: No Pertinent History Musculoskeletal: No Pertinent History Female Surgical History: Hysterectomy Other Surgical History: rt and lt carpal tunnel, trigger finger, tendon on right arm, ulnar nerve surgery, clipped left eye muscle, lt knee. lt shoulder, spinal block - Social History Smoking Status: Current every day smoker How long have you smoked: 40 Exposure to second hand smoke: No Drug Use: none Patient Lives Alone: No Significant Family History: no pertinent family hx - Female History Hx Now: No - Nursing Vital Signs Nursing Vital Signs: Initial Vital Signs Temperature 98.1 F 03/09/21 23:15 Pulse Rate 88 03/09/21 23:15 Respiratory Rate 18 03/09/21 23:15 Blood Pressure 162/77 03/09/21 23:15 O2 Sat by Pulse Oximetry 100 03/09/21 23:15 Pain Scale Pain Intensity 8 - Physical Exam General Appearance: no apparent distress Eye Exam: other (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 Exam: normal speech, PERRL, No facial droop Coordination/Gait Exam: normal finger to nose, normal gait, normal cerebellar function Motor/Sensory Exam: no motor deficit, no sensory deficit, no pronator drift DTR Exam: bicep (R): 2+, bicep (L): 2+, tricep (R): 2+, tricep (L): 2+, knee (R): 2+, knee (L): 2+, ankle (R): 2+, ankle (L): 2+ Skin Exam: normal color, warm, dry, No rash SpO2 Interpretation: normal SpO2: 100 O2 Delivery: Room Air - Course Nursing assessment & vital signs reviewed: Yes Ordered Tests: Active Orders 24 hr Category Date Time Status IV Insertion STAT Care 03/09/21 23:59 Active Medication Summary Discontinued Medications Generic Name Dose Route Start Last Admin Trade Name Freq PRN Reason Stop Dose Admin Butorphanol Tartrate 2 mg 03/10/21 00:39 03/10/21 00:42 Butorphanol Tartrate 2 Mg/Ml Vial IV 03/10/21 00:40 2 mg STAT ONE Administration Diphenhydramine HCl 25 mg 03/09/21 23:59 03/10/21 00:36 Diphenhydramine Hcl 50 Mg/Ml Vial IV 03/10/21 00:00 25 mg STAT ONE Administration Diphenhydramine HCl Confirm 03/10/21 00:29 Diphenhydramine Hcl 50 Mg/Ml Vial Administered 03/10/21 00:30 Dose 50 mg .ROUTE .STK-MED ONE Sodium Chloride 1,000 mls @ 999 mls/hr 03/09/21 23:59 03/10/21 00:37 Sodium Chloride 0.9% 1000 Ml IV 03/10/21 00:59 999 mls/hr .Q1H1M STA Administration Sodium Chloride Confirm 03/10/21 00:29 Sodium Chloride 0.9% 1000 Ml Administered 03/10/21 00:30 Dose 1,000 mls @ ud .ROUTE .STK-MED ONE Metoclopramide HCl 10 mg 03/09/21 23:59 03/10/21 00:22 Metoclopramide Hcl 10 Mg/2 Ml Vial IV 03/10/21 00:00 Not Given STAT ONE - Progress Progress: improved, re-examined Air Movement: good Progress Note: 03/10/21 01:17 symptoms resolved after treatment and pt wishes to be taken home. Blood Culture(s) Obtained: No Antibiotics given: No Counseled pt/family regarding: diagnosis, need for follow-up - Departure Departure Disposition: Home Clinical Impression: Migraine Condition: Good Critical Care Time: No Referrals: VAIBHAV CHURCHILL MD [Primary Care Provider] - Follow up/PCP as directed Instructions: Headache, Adult (DC), Migraines (DC) Additional Instructions: follow-up with your Dr and neurologist. return meantime if not improving or any symptoms of concern, or fever, or neurologic changes.
[2021-03-09] MEDS ORDERED: Sodium Chloride 0.9% 1000 ML 1,000 ML IV STA (23:59)
[2021-03-09] MEDS ORDERED: BENADRYL 50 MG/ML IV ONE (23:59)
[2021-03-09] MEDS ORDERED: Reglan 10 MG/2 ML IV ONE (23:59)
[2021-03-10] MEDS ORDERED: Sodium Chloride 0.9% 1000 ML 1,000 ML ONE (00:29)
[2021-03-10] MEDS ORDERED: BENADRYL 50 MG/ML ONE (00:29)
[2021-03-10] MEDS ORDERED: STADOL 2 MG IV ONE (00:39)
[2021-03-10 01:24] VITALS: BP 115/44; PULSE 82; O2SAT 99
== END 2021-03-10 01:32 | disposition home or self-care (01) ==
LOC: ED 23:00
DX: G43.909 Migraine, unspecified, not intractable, without status migrainosus (principal); I50.9 Heart failure, unspecified; E11.36 Type 2 diabetes mellitus with diabetic cataract; E11.42 Type 2 diabetes mellitus with diabetic polyneuropathy; H26.9 Unspecified cataract; Z79.4 Long term (current) use of insulin; Z79.899 Other long term (current) drug therapy; Z72.0 Tobacco use; J42 Unspecified chronic bronchitis
CPT/HCPCS: 36000; 96374; 96375; 99284; J0595; J1200

== ENCOUNTER 2021-04-11 08:33 | Day surgery (SDC) | payer MEDICARE ==
[2012-11-04 03:21] VITALS: BP 145/78
[2021-04-11] MEDS ORDERED: BUPIVACAINE 0.5% VIAL IJ ONE (08:34)
[2021-04-11] MEDS ORDERED: Depo-Medrol 40 MG/ML IM ONE (08:34)
[2021-04-11 09:34] LABS: Hematocrit 39.2 % (35-47); Hemoglobin 13.7 gm/dl (12.0-16.0); Mean Cell Volume 83.4 fl (78-100); Mean Corpuscular Hemoglobin 29.1 pg (26-32); Mean Corpuscular Hgb Concent. 34.9 g/dl (32-36); Mean Platelet Volume 10.9 fl (7.5-11.0); Platelet Count 152 K/mm3 (150-450); Red Cell Distribution Width 12.9 % (11.5-14.0); White Blood Count 5.5 K/mm3 (4.0-10.5)
[2021-04-11] MEDS ORDERED: DIPRIVAN 200 MG/20 ML IV ONE (10:19)
[2021-04-11] MEDS ORDERED: Xylocaine-Mpf 2% 5 Ml Vial ONE (10:20)
[2021-04-11] MEDS ORDERED: BENADRYL 50 MG/ML ONE (10:20)
[2021-04-11] MEDS ORDERED: Zofran 4 MG/2 ML VIAL ONE (10:20)
[2021-04-11 10:28] LABS: ALBUMIN 3.9 g/dL (3.5-5.0); ALKALINE PHOSPHATASE 136 U/L (38-126); ANION GAP 13.6 MEQ/L (5-15); BLOOD UREA NITROGEN 25 mg/dL (7-17); CHLORIDE 99 mmol/L (98-107); CK-Creatinine Phosphokinase 45 U/L (30-135); Calcium 9.3 mg/dL (8.4-10.2); Carbon Dioxide 22 mmol/L (22-30); Creatinine 1 0.89 mg/dL (0.52-1.04); EST GLOMERULAR FILTRATION RATE > 60.0 ML/MIN; Glucose 137 mg/dL (74-106); MAGNESIUM 1.7 mg/dL (1.6-2.3); Potassium 3.4 mmol/L (3.5-5.1); SGOT/AST 39 U/L (14-36); SGPT/ALT 25 U/L (0-35); SODIUM 131 mmol/L (137-145); Total Protein 7.5 g/dL (6.3-8.2)
--- NOTE | 2021-04-11 11:47 | XRAY ---
Indication: Bilateral L3-S1 MBB. Intraoperative fluoroscopy was provided for 31 seconds. Single digital spot image submitted for interpretation demonstrates posterior needle tips projecting over the expected left and right L3-S1 nerve roots. Correlate with intraoperative findings/report.
--- NOTE | 2021-04-11 12:38 | XRAY ---
31 seconds of fluoroscopy was used in surgery for a bilateral L3-S1 MBB.
[2021-04-11] MEDS ORDERED: Lactated Ringers 1,000 ML IV ONE (13:12)
== END 2021-04-11 10:45 | disposition home or self-care (01) ==
LOC: SDC-PAIN 08:33
PROVIDERS: ATTEND Psychiatry & Neurology Pain Medicine
DX: M17.0 Bilateral primary osteoarthritis of knee (principal); E11.9 Type 2 diabetes mellitus without complications; I10 Essential (primary) hypertension; E03.9 Hypothyroidism, unspecified; N18.9 Chronic kidney disease, unspecified; Z79.899 Other long term (current) drug therapy
CPT/HCPCS: 36415; 64493; 64494; 64495; 72020; 77002; 80053; 82306; 82550; 82947; 83036; 83735; 85027; J1030; J1200; J2405; J2704

== ENCOUNTER 2021-04-28 02:08 | Emergency (ER) | payer MEDICARE ==
--- NOTE | 2021-04-28 02:25 | ERPHSYRPT ---
- History of Present Illness Time Seen by Provider: 04/28/21 02:20 Source: patient, EMS Exam Limitations: no limitations Physician History: This is a morbidly obese 55-year-old white female patient of Dr. Churchill and pain specialist Dr. Garcia who presents with generalized pain in her body from her head to her toe that has been present for at least 1 week. Patient states that she took her Vicodin dose 4 hours prior to arrival. She is still having breakthrough pain. Patient states she has taken all she can take at home. Patient denies falls. She has had no recent trauma. Patient states that she has had recent extensive work-up with CAT scans and x-rays. They have been negative. Patient has chronic pain syndrome, chronic back pain, obesity, migraine headaches, anxiety, depression, PTSD, peripheral neuropathy, arrhythmias, CHF, hypothyroidism, asthma, sleep apnea, COPD, type 2 diabetes, gastroesophageal reflux disease and fibromyalgia. Patient stated that she is not allergic to Dilaudid. Timing/Duration: week(s) (1) Severity: moderate Associated Symptoms: denies symptoms, other (Generalized pain from head to toe. No localized pain) Allergies/Adverse Reactions: adhesive Allergy (Intermediate, Verified 03/09/21 23:15) Rash ciprofloxacin HCl [From Cipro] Allergy (Intermediate, Verified 03/09/21 23:15) Rash gatifloxacin [From Tequin] Allergy (Intermediate, Verified 03/09/21 23:15) Rash levofloxacin [From Levaquin] Allergy (Intermediate, Verified 03/09/21 23:15) Rash aspirin Allergy (Verified 03/09/21 23:15) bupropion HCl [From Wellbutrin] Allergy (Verified 03/09/21 23:15) carisoprodol [From Soma] Allergy (Verified 03/09/21 23:15) cefaclor [From Ceclor] Allergy (Verified 03/09/21 23:15) ceftibuten dihydrate [From Cedax] Allergy (Verified 03/09/21 23:15) cephalexin monohydrate [From Keflex] Allergy (Verified 03/09/21 23:15) clarithromycin [From Biaxin] Allergy (Verified 03/09/21 23:15) clotrimazole [From Lotrimin] Allergy (Verified 03/09/21 23:15) codeine [Codeine] Allergy (Verified 03/09/21 23:15) doxycycline Allergy (Verified 03/09/21 23:15) erythromycin base [Erythromycin Base] Allergy (Verified 03/09/21 23:15) gabapentin Allergy (Verified 03/09/21 23:15) ketorolac tromethamine [From Toradol] Allergy (Verified 03/09/21 23:15) loracarbef [From Lorabid] Allergy (Verified 03/09/21 23:15) meperidine HCl [From Demerol] Allergy (Verified 03/09/21 23:15) morphine Allergy (Verified 03/09/21 23:15) Norgestimate-Ethi *RETIRED-07/08/12 [From Ortho Tri-Cyclen (21)] Allergy (Verified 03/09/21 23:15) Penicillins Allergy (Verified 03/09/21 23:15) prochlorperazine edisylate [From Compazine] Allergy (Verified 03/09/21 23:15) promethazine [From Phenergan] Allergy (Verified 03/09/21 23:15) Hives promethazine HCl [From Phenergan] Allergy (Verified 03/09/21 23:15) Sulfa (Sulfonamide Antibiotics) [Sulfa(Sulfonamide Antibiotics)] Allergy (Verified 03/09/21 23:15) sumatriptan [From Imitrex] Allergy (Verified 03/09/21 23:15) haloperidol [From Haldol] Adverse Reaction (Unknown, Verified 03/09/21 23:15) hydromorphone Adverse Reaction (Unknown, Verified 03/09/21 23:15) ketorolac [From Toradol] Adverse Reaction (Unknown, Verified 03/09/21 23:15) lamotrigine [From Lamictal] Adverse Reaction (Unknown, Verified 03/09/21 23:15) sulfamethoxazole [From Bactrim] Adverse Reaction (Unknown, Verified 03/09/21 23:15) terbinafine [From Lamisil] Adverse Reaction (Unknown, Verified 03/09/21 23:15) trimethoprim [From Bactrim] Adverse Reaction (Unknown, Verified 03/09/21 23:15) melon Adverse Reaction (Verified 03/09/21 23:15) Home Medications: Budesonide/Formoterol Fumarate [Symbicort 160-4.5 Mcg Inhaler] 2 puff IH BID 10/10/15 [History] Bumetanide [Bumex] 4 mg PO DAILY 10/10/15 [History] Cholecalciferol (Vitamin D3) [Vitamin D3] 2,000 unit PO UD 10/10/15 [History] Fenofibrate 160 mg PO DAILY 10/10/15 [History] Montelukast Sodium 25 mg PO DAILY 10/10/15 [History] Nitroglycerin 0.4 mg Tablet [Nitrostat 0.4 MG Tablet] 0.4 mg SL Q5MIN PRN MR X 3 PRN 10/10/15 [History] PANTOPRAZOLE 40 mg Tablet [Protonix 40MG Tablet] 40 mg PO DAILY 10/10/15 [History] Polyethylene Glycol 3350 17 gm [Miralax Powder 17GM PACKET] 17 gm PO UD PRN 0 10/10/15 [History] Potassium Chloride 20 Meq [Klor-Con 20 MEQ] 20 meq PO DAILY 10/10/15 [History] Divalproex Sodium [Divalproex Sodium ER] 500 mg PO BID 03/06/16 [History] Albuterol 2.5 mg/3 ml Neb [Proventil 2.5 mg/3 ml Neb] 1 ea IH QID PRN PRN 07/08/18 [History] Albuterol Sulfate [Proair Hfa] 2 puffs IH QID 07/08/18 [History] Rosuvastatin Calcium [Crestor] 40 mg PO DAILY 07/08/18 [History] Levothyroxine Sodium 112 Mcg [Synthroid 112 Mcg] 212 mcg PO DAILY 07/28/18 [History] Famotidine [Pepcid] 40 mg PO BID 07/18/19 [History] Fluticasone Propionate [Flonase NASAL] 2 sprays .ROUTE BID 07/18/19 [History] Diphenhydramine HCl 25 mg [Benadryl 25 mg Capsule] 25 mg PO Q4H PRN PRN 08/17/19 [History] Lisinopril 10 mg [Zestril 10 MG] 20 mg PO DAILY 08/17/19 [History] Magnesium Oxide 400 mg [Mag-Ox 400] 400 mg PO TID 08/17/19 [History] Cyclobenzaprine HCl 10 mg [Cyclobenzaprine 10 MG] 10 mg PO HS 03/31/20 [History] Erenumab-Aooe [Aimovig Autoinjector] 140 mg SQ UD 03/31/20 [History] Hydrocodone/APAP 5-325 Tab^^^ [Thorndale 5-325 Tablet^^^] 1 each PO QID MDD 6 03/31/20 [History] Insulin Degludec [Tresiba] 50 unit SQ TID 03/31/20 [History] Lubiprostone [Amitiza] 24 mcg PO DAILY 03/31/20 [History] Topiramate [Topamax] 50 mg PO BID 03/31/20 [History] Ondansetron [Ondansetron Odt] 8 mg PO Q6-8HPRN PRN 10/24/20 [History] Rimegepant Sulfate [Nurtec Odt] 75 mg PO Q12H PRN PRN 10/24/20 [History] Hx Tetanus, Diphtheria Vaccination/Date Given: Yes Hx Influenza Vaccination/Date Given: Yes Hx Pneumococcal Vaccination/Date Given: Yes Travel Risk - International Travel Have you traveled outside of the country in past 3 weeks: No - Coronavirus Screening Are you exhibiting any of the following symptoms?: No Close contact with a COVID-19 positive Pt in past 14-21 Days: No - Vaccine Status Have you recieved a Covid-19 vaccination: Yes Coater Slate: Moderna - Vaccination Dates Date of 2cond Vaccination (if applicable): 09/04 Dates if Unknown: unknown - Review of Systems Constitutional: No Symptoms Eyes: No Symptoms Ears, Nose, & Throat: No Symptoms Respiratory: No Symptoms Cardiac: No Symptoms Abdominal/Gastrointestinal: No Symptoms Genitourinary Symptoms: No Symptoms Musculoskeletal: Other (Generalized body pain from head to toe) Skin: No Symptoms Neurological: No Symptoms Psychological: No Symptoms Endocrine: No Symptoms Hematologic/Lymphatic: No Symptoms Immunological/Allergic: No Symptoms All Other Systems: Reviewed and Negative - Past Medical History Pertinent Past Medical History: Yes Neurological History: Migraines ENT History: Cataracts Cardiac History: Arrhythmia, Congestive Heart Failure, Other Respiratory History: Asthma, Bronchitis, COPD, Sleep Apnea Endocrine Medical History: Diabetes Type II, Hyperthyroidism Musculoskeletal History: Fibromyalgia, Osteoarthritis GI Medical History: GERD, Irritable Bowel History: Other Psycho-Social History: Anxiety, Bipolar, Depression, Other Female Reproductive Disorders: No Pertinent History Other Medical History: 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 PTSD - Past Surgical History Past Surgical History: Yes Neuro Surgical History: No Pertinent History Cardiac: Cardiac Catheterization Respiratory: No Pertinent History Gastrointestinal: Cholecystectomy Genitourinary: No Pertinent History Musculoskeletal: No Pertinent History Female Surgical History: Hysterectomy Other Surgical History: rt and lt carpal tunnel, trigger finger, tendon on right arm, ulnar nerve surgery, clipped left eye muscle, lt knee. lt shoulder, spinal block - Social History Smoking Status: Current every day smoker How long have you smoked: 40 Exposure to second hand smoke: No Drug Use: none Patient Lives Alone: No Significant Family History: no pertinent family hx - Nursing Vital Signs Nursing Vital Signs: Initial Vital Signs Temperature 96.2 F 04/28/21 02:10 Pulse Rate 89 04/28/21 02:10 Respiratory Rate 22 04/28/21 02:10 Blood Pressure 181/84 04/28/21 02:10 O2 Sat by Pulse Oximetry 100 04/28/21 02:10 Pain Scale Pain Intensity [Generalized] 9 Pain Intensity 9 - Physical Exam General Appearance: no apparent distress, alert, anxiety, obese Eye Exam: PERRL/EOMI, eyes nml inspection Ears, Nose, Throat Exam: normal ENT inspection, moist mucous membranes Neck Exam: normal inspection, non-tender, supple, full range of motion Respiratory Exam: normal breath sounds, lungs clear, airway intact, No chest tenderness, No respiratory distress Cardiovascular Exam: regular rate/rhythm, normal heart sounds, normal peripheral pulses Gastrointestinal/Abdomen Exam: soft, normal bowel sounds, No tenderness Pelvic Exam: not done Rectal Exam: not done Back Exam: normal inspection, 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 of motion, No CVA tenderness, No vertebral tenderness Extremity Exam: normal inspection, 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 of motion, pelvis stable Neurologic Exam: alert, 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, cooperative, airplane tube builder II-XII nml as tested, normal mood/affect, nml cerebellar function, nml station & gait, sensation nml Skin Exam: normal color, warm, dry Lymphatic Exam: No adenopathy SpO2 Interpretation: normal O2 Delivery: Room Air Comments: 04/28/21 02:24 Patient was able to move herself from the EMS cot to the bed. She did this movement completely on her own and transferred without difficulty. - Course Nursing assessment & vital signs reviewed: Yes Ordered Tests: Active Orders 24 hr Category Date Time Status CBC W DIFF Stat Lab 04/28/21 02:31 Completed CMP Stat Lab 04/28/21 02:31 Completed MAG [MAGNESIUM] Stat Lab 04/28/21 02:31 Completed UA W/RFX UR CULTURE Stat Lab 04/28/21 02: Completed Urine Triage Profile Stat Lab 04/28/21 02:31 Completed Lab/Rad Data: Laboratory Result Diagrams 04/28/21 02:31 04/28/21 02:31 Laboratory Results 04/28/21 04/28/21 04/28/21 Range/Units 02: 02: 02:31 WBC 3.8 L (4.0-10.5) K/mm3 RBC 4.47 (4.1-5.4) M/mm3 Hgb 13.1 (12.0-16.0) gm/dl Hct 38.8 (35-47) % MCV 86.8 (78-100) fl MCH 29.3 (26-32) pg MCHC 33.8 (32-36) g/dl RDW 13.1 (11.5-14.0) % Plt Count 133 L (150-450) K/mm3 MPV 11.0 (7.5-11.0) fl Gran % 44.4 (36.0-66.0) % Eos # (Auto) 0.20 (0-0.5) Absolute Lymphs (auto) 1.65 (1.0-4.6) Absolute Monos (auto) 0.25 (0.0-1.3) Lymphocytes % 43.3 (24.0-44.0) % Monocytes % 6.6 (0.0-12.0) % Eosinophils % 5.2 H (0.00-5.0) % Basophils % 0.5 (0.0-0.4) % Absolute Granulocytes 1.69 (1.4-6.9) Basophils # 0.02 (0-0.4) Sodium 137 (137-145) mmol/L Potassium 3.5 (3.5-5.1) mmol/L Chloride 106 (98-107) mmol/L Carbon Dioxide 24 (22-30) mmol/L Anion Gap 10.4 (5-15) MEQ/L BUN 19 H (7-17) mg/dL Creatinine 1.04 (0.52-1.04) mg/dL Estimated GFR 58.9 ML/MIN Glucose 143 H (74-106) mg/dL Calcium 8.9 (8.4-10.2) mg/dL Magnesium 1.6 (1.6-2.3) mg/dL Total Bilirubin 0.20 (0.2-1.3) mg/dL AST 20 (14-36) U/L ALT 17 (0-35) U/L Alkaline Phosphatase 137 H (38-126) U/L Serum Total Protein 6.3 (6.3-8.2) g/dL Albumin 3.2 L (3.5-5.0) g/dL Urine Color (YELLOW) Urine Appearance (CLEAR) Urine pH (5-6) Ur Specific Mize (1.005-1.025) Urine Protein (Negative) Urine Ketones (NEGATIVE) Urine Blood (0-5) Joseluis/ul Urine Nitrite (NEGATIVE) Urine Bilirubin (NEGATIVE) Urine Urobilinogen (0-1) mg/dL Ur Leukocyte Esterase (NEGATIVE) Urine WBC (Auto) (0-5) /HPF Urine RBC (Auto) (0-2) /HPF U Epithel Cells (Auto) (FEW) /HPF Urine Bacteria (Auto) (NEGATIVE) /HPF Urine Mucus (Auto) (NEGATIVE) /HPF Urine Culture Reflexed (NO) Urine Glucose (NEGATIVE) mg/dL Urine Opiates Level (NEGATIVE) Ur Methadone (NEGATIVE) Urine Barbiturates (NEGATIVE) Ur Phencyclidine (PCP) (NEGATIVE) Urine Amphetamine (NEGATIVE) U Benzodiazepine Level (NEGATIVE) Urine Cocaine (NEGATIVE) Urine Marijuana (THC) (NEGATIVE) 04/28/21 04/28/21 Range/Units 02:31 02:31 WBC (4.0-10.5) K/mm3 RBC (4.1-5.4) M/mm3 Hgb (12.0-16.0) gm/dl Hct (35-47) % MCV (78-100) fl MCH (26-32) pg MCHC (32-36) g/dl RDW (11.5-14.0) % Plt Count (150-450) K/mm3 MPV (7.5-11.0) fl Gran % (36.0-66.0) % Eos # (Auto) (0-0.5) Absolute Lymphs (auto) (1.0-4.6) Absolute Monos (auto) (0.0-1.3) Lymphocytes % (24.0-44.0) % Monocytes % (0.0-12.0) % Eosinophils % (0.00-5.0) % Basophils % (0.0-0.4) % Absolute Granulocytes (1.4-6.9) Basophils # (0-0.4) Sodium (137-145) mmol/L Potassium (3.5-5.1) mmol/L Chloride (98-107) mmol/L Carbon Dioxide (22-30) mmol/L Anion Gap (5-15) MEQ/L BUN (7-17) mg/dL Creatinine (0.52-1.04) mg/dL Estimated GFR ML/MIN Glucose (74-106) mg/dL Calcium (8.4-10.2) mg/dL Magnesium (1.6-2.3) mg/dL Total Bilirubin (0.2-1.3) mg/dL AST (14-36) U/L ALT (0-35) U/L Alkaline Phosphatase (38-126) U/L Serum Total Protein (6.3-8.2) g/dL Albumin (3.5-5.0) g/dL Urine Color YELLOW (YELLOW) Urine Appearance SLIGHTLY CLOUDY (CLEAR) Urine pH 5.0 (5-6) Ur Specific Mize 1.025 (1.005-1.025) Urine Protein >=500 (Negative) Urine Ketones NEGATIVE (NEGATIVE) Urine Blood NEGATIVE (0-5) Joseluis/ul Urine Nitrite NEGATIVE (NEGATIVE) Urine Bilirubin NEGATIVE (NEGATIVE) Urine Urobilinogen NEGATIVE (0-1) mg/dL Ur Leukocyte Esterase NEGATIVE (NEGATIVE) Urine WBC (Auto) 3-5 (0-5) /HPF Urine RBC (Auto) 3-5 (0-2) /HPF U Epithel Cells (Auto) RARE (FEW) /HPF Urine Bacteria (Auto) NONE (NEGATIVE) /HPF Urine Mucus (Auto) SLIGHT (NEGATIVE) /HPF Urine Culture Reflexed NO (NO) Urine Glucose 50 (NEGATIVE) mg/dL Urine Opiates Level NEGATIVE (NEGATIVE) Ur Methadone NEGATIVE (NEGATIVE) Urine Barbiturates NEGATIVE (NEGATIVE) Ur Phencyclidine (PCP) NEGATIVE (NEGATIVE) Urine Amphetamine NEGATIVE (NEGATIVE) U Benzodiazepine Level NEGATIVE (NEGATIVE) Urine Cocaine NEGATIVE (NEGATIVE) Urine Marijuana (THC) NEGATIVE (NEGATIVE) - Progress Progress: improved, pain not gone completely Progress Note: 04/28/21 03:09 Medical decision making: This patient has had extensive work-up as an outpatient to try to localize or define the cause of her pain. She has had multiple, recent CAT scans and x-rays. She has had extensive work-up. She took Vicodin at approximately 10 PM on 04/27/2021. She is having some generalized breakthrough pain. She has significant arthritis and fibromyalgia. Her work-up shows that she does not have any acute acute, emergent cause of her pain. I will not prescribe her any outpatient medication for pain. I will provide her with an intramuscular bolus of Dilaudid, which she is not allergic to and an antiemetic Zofran which she is not allergic to. This will be given to her when her transportation home arrives to the emergency department. Counseled pt/family regarding: lab results, diagnosis, need for follow-up - Departure Departure Disposition: Home Clinical Impression: Generalized pain, Breakthrough pain Condition: Stable Critical Care Time: No Referrals: VAIBHAV CHURCHILL MD [Primary Care Provider] - Follow up/PCP as directed Additional Instructions: Sitz bath 2 times a day and warm soapy water or warm water with Epson salts. Follow-up with Dr. Churchill in his office regarding your perianal discomfort symptoms. Follow-up with Dr. Garcai in his office on 04/30/2021 for pain control issues.
[2021-04-28 02:45] LABS: Absolute Neutrophil Ct (ANC) 1.69 (1.4-6.9); Basophil (Absolute #) 0.02 (0-0.4); Eosinophil % 5.2 % (0.00-5.0); Hematocrit 38.8 % (35-47); Hemoglobin 13.1 gm/dl (12.0-16.0); Lymphocyte (Absolute #) 1.65 (1.0-4.6); Lymphocytes % 43.3 % (24.0-44.0); Mean Cell Volume 86.8 fl (78-100); Mean Corpuscular Hemoglobin 29.3 pg (26-32); Mean Corpuscular Hgb Concent. 33.8 g/dl (32-36); Monocyte (Absolute #) 0.25 (0.0-1.3); Monocytes % 6.6 % (0.0-12.0); Neutrophil % 44.4 % (36.0-66.0); Platelet Count 133 K/mm3 (150-450); Red Blood Count 4.47 M/mm3 (4.1-5.4); Red Cell Distribution Width 13.1 % (11.5-14.0); White Blood Count 3.8 K/mm3 (4.0-10.5)
[2021-04-28 02:49] LABS: Appearance SLIGHTLY CLOUDY (CLEAR); Bilirubin NEGATIVE (NEGATIVE); Blood NEGATIVE Ery/ul (0-5); Epithelial Cells RARE /HPF (FEW); Glucose 50 mg/dL (NEGATIVE); Ketones NEGATIVE (NEGATIVE); Leukocyte Esterase NEGATIVE (NEGATIVE); Mucus SLIGHT /HPF (NEGATIVE); Nitrite NEGATIVE (NEGATIVE); Protein,Urine Dip >=500 (Negative); Specific Gravity 1.025 (1.005-1.025); Urobilinogen NEGATIVE mg/dL (0-1)
[2021-04-28 02:53] VITALS: O2SAT 100
[2021-04-28 03:02] LABS: Amphetamine,Urine NEGATIVE (NEGATIVE); Barbiturate,Urine NEGATIVE (NEGATIVE); Benzodiazepine,Urine NEGATIVE (NEGATIVE); Cocaine,Urine NEGATIVE (NEGATIVE); Methadone,Urine NEGATIVE (NEGATIVE); Opiate,Urine NEGATIVE (NEGATIVE); PCP,Urine NEGATIVE (NEGATIVE); THC,Urine NEGATIVE (NEGATIVE)
[2021-04-28 03:03] LABS: ALBUMIN 3.2 g/dL (3.5-5.0); ANION GAP 10.4 MEQ/L (5-15); BILIRUBIN,TOTAL 0.2 mg/dL (0.2-1.3); Calcium 8.9 mg/dL (8.4-10.2); Creatinine 1 1.04 mg/dL (0.52-1.04); EST GLOMERULAR FILTRATION RATE 58.9 ML/MIN; Potassium 3.5 mmol/L (3.5-5.1); Total Protein 6.3 g/dL (6.3-8.2)
[2021-04-28] MEDS ORDERED: Hydromorphone 1 mg/ml Injection IM ONE (03:06)
[2021-04-28] MEDS ORDERED: ZOFRAN ODT 4 MG PO ONE (03:08)
[2021-04-28 03:11] VITALS: BP 179/84; PULSE 86
[2021-04-28] MEDS ORDERED: Hydromorphone 1 mg/ml Injection ONE (03:15)
[2021-04-28] MEDS ORDERED: ZOFRAN ODT 4 MG ONE (03:15)
== END 2021-04-28 03:37 | disposition home or self-care (01) ==
LOC: ED 02:08
DX: G89.4 Chronic pain syndrome (principal); E66.9 Obesity, unspecified; F41.9 Anxiety disorder, unspecified; I50.9 Heart failure, unspecified; E11.42 Type 2 diabetes mellitus with diabetic polyneuropathy; Z79.4 Long term (current) use of insulin; M79.7 Fibromyalgia; J44.9 Chronic obstructive pulmonary disease, unspecified; Z79.891 Long term (current) use of opiate analgesic; Z79.899 Other long term (current) drug therapy; Z72.0 Tobacco use
CPT/HCPCS: 36415; 80053; 80307; 81001; 83735; 85025; 96372; 99284; J1170; Q0162

== ENCOUNTER 2021-05-07 14:57 | Emergency (ER) | payer MEDICARE, MEDICAID ==
[2021-05-07] MEDS ORDERED: Catapres 0.1 MG PO ONE (15:33)
[2021-05-07] MEDS ORDERED: Catapres 0.1 MG ONE (15:36)
--- NOTE | 2021-05-07 15:40 | ERPHSYRPT ---
- History of Present Illness Source: patient Exam Limitations: no limitations Patient Subjective Stated Complaint: Pt states "I have a migraine going on 4 days now and I am out of my norco." Triage Nursing Assessment: PTpresented alert and oriented X 3, skin wpd Pt ambulates with an upright stready gait, able to speak in clear full sentences pt in no apparent respiratory distress. Physician History: 55 yo wf presents w headache x 4 days. Pain is 9 on scale/bilateral frontal/throbbing-sharp/worse w bright lights and noise. She has had N/V but denies focal weakness/fever/trauma. Pt has a h/o chronic headaches with frequent ER visits. She states that she is out of her pain meds. Timing/Duration: day(s) (4 days) Quality: stabbing, throbbing Head Pain Location: frontal Severity of Pain-Max: severe Severity of Pain-Current: severe Recent Head Trauma: frequent headaches Modifying Factors: Improves With: exposure to light, other (Worse w light/noise) Associated Symptoms: nausea/vomiting, sensitive to light, No confusion, No dizziness, No fatigue, No facial pain, No fever/chills, No flushing, No light- headedness, No loss of consciousness, No nasal congestion, No nasal drainage, No neck pain, No numbness in legs/feet, No rash, No sweating, No scotoma, No seizures, No sinus infection, No speech problems, No stiff neck, No trouble walking, No vision changes, No visual disturbance, No weakness Previous symptoms: same symptoms as today Allergies/Adverse Reactions: adhesive Allergy (Intermediate, Verified 03/09/21 23:15) Rash ciprofloxacin HCl [From Cipro] Allergy (Intermediate, Verified 03/09/21 23:15) Rash gatifloxacin [From Tequin] Allergy (Intermediate, Verified 03/09/21 23:15) Rash levofloxacin [From Levaquin] Allergy (Intermediate, Verified 03/09/21 23:15) Rash aspirin Allergy (Verified 03/09/21 23:15) bupropion HCl [From Wellbutrin] Allergy (Verified 03/09/21 23:15) carisoprodol [From Soma] Allergy (Verified 03/09/21 23:15) cefaclor [From Ceclor] Allergy (Verified 03/09/21 23:15) ceftibuten dihydrate [From Cedax] Allergy (Verified 03/09/21 23:15) cephalexin monohydrate [From Keflex] Allergy (Verified 03/09/21 23:15) clarithromycin [From Biaxin] Allergy (Verified 03/09/21 23:15) clotrimazole [From Lotrimin] Allergy (Verified 03/09/21 23:15) codeine [Codeine] Allergy (Verified 03/09/21 23:15) doxycycline Allergy (Verified 03/09/21 23:15) erythromycin base [Erythromycin Base] Allergy (Verified 03/09/21 23:15) gabapentin Allergy (Verified 03/09/21 23:15) ketorolac tromethamine [From Toradol] Allergy (Verified 03/09/21 23:15) loracarbef [From Lorabid] Allergy (Verified 03/09/21 23:15) meperidine HCl [From Demerol] Allergy (Verified 03/09/21 23:15) morphine Allergy (Verified 03/09/21 23:15) Norgestimate-Ethi *RETIRED-07/08/12 [From Ortho Tri-Cyclen (21)] Allergy (Verified 03/09/21 23:15) Penicillins Allergy (Verified 03/09/21 23:15) prochlorperazine edisylate [From Compazine] Allergy (Verified 03/09/21 23:15) promethazine [From Phenergan] Allergy (Verified 03/09/21 23:15) Hives promethazine HCl [From Phenergan] Allergy (Verified 03/09/21 23:15) Sulfa (Sulfonamide Antibiotics) [Sulfa(Sulfonamide Antibiotics)] Allergy (Verified 03/09/21 23:15) sumatriptan [From Imitrex] Allergy (Verified 03/09/21 23:15) haloperidol [From Haldol] Adverse Reaction (Unknown, Verified 03/09/21 23:15) hydromorphone Adverse Reaction (Unknown, Verified 03/09/21 23:15) ketorolac [From Toradol] Adverse Reaction (Unknown, Verified 03/09/21 23:15) lamotrigine [From Lamictal] Adverse Reaction (Unknown, Verified 03/09/21 23:15) sulfamethoxazole [From Bactrim] Adverse Reaction (Unknown, Verified 03/09/21 23:15) terbinafine [From Lamisil] Adverse Reaction (Unknown, Verified 03/09/21 23:15) trimethoprim [From Bactrim] Adverse Reaction (Unknown, Verified 03/09/21 23:15) melon Adverse Reaction (Verified 03/09/21 23:15) Home Medications: Budesonide/Formoterol Fumarate [Symbicort 160-4.5 Mcg Inhaler] 2 puff IH BID 10/10/15 [History] Bumetanide [Bumex] 4 mg PO DAILY 10/10/15 [History] Cholecalciferol (Vitamin D3) [Vitamin D3] 2,000 unit PO UD 10/10/15 [History] Fenofibrate 160 mg PO DAILY 10/10/15 [History] Montelukast Sodium 25 mg PO DAILY 10/10/15 [History] Nitroglycerin 0.4 mg Tablet [Nitrostat 0.4 MG Tablet] 0.4 mg SL Q5MIN PRN MR X 3 PRN 10/10/15 [History] PANTOPRAZOLE 40 mg Tablet [Protonix 40MG Tablet] 40 mg PO DAILY 10/10/15 [History] Polyethylene Glycol 3350 17 gm [Miralax Powder 17GM PACKET] 17 gm PO UD PRN 10/10/15 [History] Potassium Chloride 20 Meq [Klor-Con 20 MEQ] 20 meq PO DAILY 10/10/15 [History] Divalproex Sodium [Divalproex Sodium ER] 500 mg PO BID 03/06/16 [History] Albuterol 2.5 mg/3 ml Neb [Proventil 2.5 mg/3 ml Neb] 1 ea IH QID PRN PRN 07/08/18 [History] Albuterol Sulfate [Proair Hfa] 2 puffs IH QID 07/08/18 [History] Rosuvastatin Calcium [Crestor] 40 mg PO DAILY 07/08/18 [History] Levothyroxine Sodium 112 Mcg [Synthroid 112 Mcg] 212 mcg PO DAILY 07/28/18 [History] Famotidine [Pepcid] 40 mg PO BID 07/18/19 [History] Fluticasone Propionate [Flonase NASAL] 2 sprays .ROUTE BID 07/18/19 [History] Diphenhydramine HCl 25 mg [Benadryl 25 mg Capsule] 25 mg PO Q4H PRN PRN 08/17/19 [History] Lisinopril 10 mg [Zestril 10 MG] 20 mg PO DAILY 08/17/19 [History] Magnesium Oxide 400 mg [Mag-Ox 400] 400 mg PO TID 08/17/19 [History] Cyclobenzaprine HCl 10 mg [Cyclobenzaprine 10 MG] 10 mg PO HS 03/31/20 [History] Erenumab-Aooe [Aimovig Autoinjector] 140 mg SQ UD 03/31/20 [History] Hydrocodone/APAP 5-325 Tab^^^ [Deland 5-325 Tablet^^^] 1 each PO QID MDD 6 03/31/20 [History] Insulin Degludec [Tresiba] 50 unit SQ TID 03/31/20 [History] Lubiprostone [Amitiza] 24 mcg PO DAILY 03/31/20 [History] Topiramate [Topamax] 50 mg PO BID 03/31/20 [History] Ondansetron [Ondansetron Odt] 8 mg PO Q6-8HPRN PRN 10/24/20 [History] Rimegepant Sulfate [Nurtec Odt] 75 mg PO Q12H PRN PRN 10/24/20 [History] Hx Tetanus, Diphtheria Vaccination/Date Given: Yes Hx Influenza Vaccination/Date Given: Yes Hx Pneumococcal Vaccination/Date Given: Yes Immunizations Up to Date: Yes Travel Risk - International Travel Have you traveled outside of the country in past 3 weeks: No - Coronavirus Screening Are you exhibiting any of the following symptoms?: No Close contact with a COVID-19 positive Pt in past 14-21 Days: No - Vaccine Status Have you recieved a Covid-19 vaccination: Yes Thermometer Tester: Moderna - Vaccination Dates Date of 2cond Vaccination (if applicable): 09/04 Dates if Unknown: unknown - Review of Systems Constitutional: No Symptoms Eyes: No Symptoms Ears, Nose, & Throat: No Symptoms Respiratory: No Symptoms Cardiac: No Symptoms Abdominal/Gastrointestinal: No Symptoms, Nausea, Vomiting Genitourinary Symptoms: No Symptoms Musculoskeletal: No Symptoms Skin: No Symptoms Neurological: No Symptoms, Headache Psychological: No Symptoms Endocrine: No Symptoms Hematologic/Lymphatic: No Symptoms Immunological/Allergic: No Symptoms - Past Medical History Pertinent Past Medical History: Yes Neurological History: Migraines ENT History: Cataracts Cardiac History: Arrhythmia, Congestive Heart Failure, Other Respiratory History: Asthma, Bronchitis, COPD, Sleep Apnea Endocrine Medical History: Diabetes Type II, Hyperthyroidism Musculoskeletal History: Fibromyalgia, Osteoarthritis GI Medical History: GERD, Irritable Bowel History: Other Psycho-Social History: Anxiety, Bipolar, Depression, Other Female Reproductive Disorders: No Pertinent History Other Medical History: 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 PTSD - Past Surgical History Past Surgical History: Yes Neuro Surgical History: No Pertinent History Cardiac: Cardiac Catheterization Respiratory: No Pertinent History Gastrointestinal: Cholecystectomy Genitourinary: No Pertinent History Musculoskeletal: No Pertinent History Female Surgical History: Hysterectomy Other Surgical History: rt and lt carpal tunnel, trigger finger, tendon on right arm, ulnar nerve surgery, clipped left eye muscle, lt knee. lt shoulder, spinal block - Social History Smoking Status: Current every day smoker How long have you smoked: 40 Exposure to second hand smoke: No Drug Use: none Patient Lives Alone: No Significant Family History: no pertinent family hx - Female History Hx Now: No - Nursing Vital Signs Nursing Vital Signs: Initial Vital Signs Temperature 98.7 F 05/07/21 15:05 Pulse Rate 93 H 05/07/21 15:05 Respiratory Rate 20 05/07/21 15:05 Blood Pressure 195/82 05/07/21 15:05 O2 Sat by Pulse Oximetry 100 05/07/21 15:05 Pain Scale Pain Intensity 5 Hypertensive - Physical Exam General Appearance: no apparent distress Eye Exam: PERRL/EOMI, eyes nml inspection Ears, Nose, Throat Exam: normal ENT inspection, TMs normal, pharynx normal, moist mucous membranes Neck Exam: normal inspection, non-tender, supple, full range of motion, No meningismus, No mass, No Brudzinski, No Kernig's, No carotid bruit, No JVD Respiratory Exam: normal breath sounds, lungs clear, airway intact, No respiratory distress Cardiovascular Exam: regular rate/rhythm, normal heart sounds, normal peripheral pulses, capillary refill <2 sec, No murmur Gastrointestinal/Abdominal Exam: soft, normal bowel sounds, tenderness Back Exam: normal inspection, 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 of motion, No CVA tenderness, No vertebral tenderness Extremity Exam: normal inspection, 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 of motion 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, 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, 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 Exam: normal hearing, normal speech, PERRL, tongue midline, No abnormal eye position, No abnormal gag reflex, No abnormal pupil position, No abnormal speech, No facial asymmetry, No facial droop, No facial paresthesias, No facial weakness, No gaze palsy, No hearing deficit (R), No hearing deficit (L), No tongue deviation to R, No tongue deviation to L Coordination/Gait Exam: normal finger to nose, normal gait, normal cerebellar function, negative Romberg's sign Motor/Sensory Exam: no motor deficit, no sensory deficit, no pronator drift, negative Babinski's sign DTR Exam: bicep (R): 2+, bicep (L): 2+, knee (R): 2+, knee (L): 2+ Skin Exam: normal color, warm, dry Lymphatic Exam: No adenopathy SpO2 Interpretation: normal SpO2: 100 O2 Delivery: Room Air - Course Nursing assessment & vital signs reviewed: Yes - CT Exams Head CT Interpretation: Discussed w/radiologist (NAD) Ordered Tests: Active Orders 24 hr Category Date Time Status HEAD WITHOUT CONTRAST [CT] Stat Exams 05/07/21 15:44 Completed Medication Summary Discontinued Medications Generic Name Dose Route Start Last Admin Trade Name Bety PRN Reason Stop Dose Admin Hydrocodone Bitart/Acetaminophen 1 tablet 05/07/21 16:30 05/07/21 16:32 Hydrocodone/Acetamin 10-325 Mg Tablet PO 05/07/21 16:31 1 tablet STAT ONE Administration Clonidine 0.2 mg 05/07/21 15:33 05/07/21 15:36 Clonidine Hcl 0.1 Mg Tablet PO 05/07/21 15:34 0.2 mg STAT ONE Administration Clonidine Confirm 05/07/21 15:36 Clonidine Hcl 0.1 Mg Tablet Administered 05/07/21 15:37 Dose 0.2 mg .ROUTE .STK-MED ONE Ondansetron HCl 4 mg 05/07/21 16:31 05/07/21 16:32 Zofran 4 Mg/Udtablet Orally Disintegrating PO 05/07/21 16:32 4 mg STAT ONE Administration Ondansetron HCl Confirm 05/07/21 16:31 Zofran 4 Mg/Udtablet Orally Disintegrating Administered 05/07/21 16:32 Dose 4 mg .ROUTE .STK-MED ONE - Progress Progress: improved Progress Note: 05/07/21 16:29 BP decreased w 0.2 po Clonidine Deland 10 po x1/Zofran 4mg ODT 05/07/21 19:07 Counseled pt/family regarding: diagnosis, need for follow-up, rad results - Departure Departure Disposition: Home Clinical Impression: Hypertension, Migraine Condition: Stable Critical Care Time: No Referrals: VAIBHAV CHURCHILL MD [Primary Care Provider] - Follow up/PCP as directed Instructions: Migraines (DC), Headache, Adult (DC) Additional Instructions: Follow up with your pain physician about headache and blood pressure Watch your blood pressure closely Return to ER for increasing pain, focal weakness, or temperature greater than 100.5
[2021-05-07 16:16] VITALS: BP 153/62; PULSE 88
--- NOTE | 2021-05-07 16:27 | XRAY ---
Indication: Frontal headache 4 days. Multiple contiguous axial images obtained through the head without contrast. Comparison: December 01, 2018. Normal appearing brain parenchyma, ventricles, and bony calvarium for patient's age. Visualized paranasal sinuses and mastoid air cells are clear. Impression: Continued normal CT head without contrast exam.
[2021-05-07] MEDS ORDERED: HYDROCODONE-ACETAMIN 10-325 MG PO ONE (16:30)
[2021-05-07] MEDS ORDERED: ZOFRAN ODT 4 MG PO ONE (16:31)
[2021-05-07] MEDS ORDERED: ZOFRAN ODT 4 MG ONE (16:31)
[2021-05-07 16:34] VITALS: O2SAT 100
== END 2021-05-07 16:45 | disposition home or self-care (01) ==
LOC: ED 14:57
DX: G43.909 Migraine, unspecified, not intractable, without status migrainosus (principal); R11.2 Nausea with vomiting, unspecified; I11.0 Hypertensive heart disease with heart failure; I50.9 Heart failure, unspecified; J44.9 Chronic obstructive pulmonary disease, unspecified; E11.42 Type 2 diabetes mellitus with diabetic polyneuropathy; Z79.4 Long term (current) use of insulin; K21.9 Gastro-esophageal reflux disease without esophagitis; Z72.0 Tobacco use; Z79.891 Long term (current) use of opiate analgesic; Z79.899 Other long term (current) drug therapy
CPT/HCPCS: 70450; 99284; Q0162; A9270-GY

== ENCOUNTER 2021-08-13 18:56 | Emergency (ER) | payer MEDICARE ==
[2021-08-13] MEDS ORDERED: Hydromorphone 1 mg/ml Injection IM ONE (19:24)
[2021-08-13] MEDS ORDERED: Hydromorphone 1 mg/ml Injection ONE (19:36)
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
[2021-08-13 21:48] VITALS: BP 174/80; PULSE 92; O2SAT 95
--- NOTE | 2021-08-14 08:39 | XRAY ---
Indication: Head injury following fall from wheelchair one week ago. Multiple contiguous axial images obtained through the head without contrast. Comparison: May 07, 2021 Normal appearing brain parenchyma, ventricles, and bony calvarium. Visualized paranasal sinuses and mastoid air cells are clear. Impression: Continued normal CT head without contrast exam. Comment: Preliminary interpretation made by [facility]. No critical discrepancy.
--- NOTE | 2021-08-14 08:41 | XRAY ---
Indication: Neck pain following fall from wheelchair one week ago. Multiple contiguous axial images obtained through the cervical spine. Sagittal and coronal reformatted images obtained. Comparison: March 25, 2016. Axial images negative for acute fracture, suspicious bony lesions, or spinal canal stenosis. Stable C4-C6 anterior endplate spurring. Facets are symmetric. Sagittal and coronal reformatted images again demonstrates lordotic straightening, positional versus paraspinal spasm. Vertebral body heights/disc spaces maintained. No acute compression fracture, subluxation, or jumped facet. Normal appearing craniocervical junction. Visualized noncontrasted soft tissues again demonstrates mild bilateral carotid calcifications. Lung apices clear. Impression: 1. Again cervical lordotic straightening, positional versus paraspinal spasm. 2. Negative acute fracture/subluxation. Comment: Preliminary interpretation made by [facility]. No critical discrepancy.
--- NOTE | 2021-08-14 08:45 | XRAY ---
Indication: Back pain following fall from wheelchair one week ago. Multiple contiguous axial images obtained through the thoracic spine. Sagittal and coronal reformatted images obtained. Comparison: CT chest April 21, 2019. Axial images negative for acute fracture, suspicious bony lesions, or spinal canal stenosis. Again minimal/mild multilevel anterior endplate spurring. New T6-T12 degenerative vacuum disc phenomena. Sagittal and coronal reformatted images demonstrates stable normal alignment. Stable minimal anterior T11 superior endplate fracture. No acute compression fracture or subluxation. Visualized noncontrasted soft tissues again demonstrate minimal/mild scattered aortic calcifications. Impression: 1. Again multilevel degenerative changes and remote T11 endplate fracture. 2. Negative acute fracture/subluxation. Comment: Preliminary interpretation made by [facility]. No critical discrepancy.
--- NOTE | 2021-08-14 08:55 | XRAY ---
Indication: Low back pain following fall from wheelchair one week ago. Multiple contiguous axial images obtained through the lumbar spine. Sagittal and coronal reformatted images obtained. Comparison: September 18, 2020. Axial images again demonstrates mild broad-based disc bulge at L3-S1 levels. New L3-L5 degenerative vacuum disc phenomena. No large disc herniation or spinal canal stenosis. Facets are symmetric. Sagittal and coronal reformatted images again demonstrates normal alignment and remote L2/L3 superior endplate fractures versus Schmorl nodes. New L4/L5 subacute to chronic appearing superior endplate fractures with approximately 20-50% height loss. Disc spaces maintained. Visualized noncontrasted soft tissues again demonstrates moderate scattered aortoiliac calcifications without AAA. Impression: 1. New subacute to chronic appearing L4/L5 superimposed fractures without spinal canal or foraminal compromise. 2. Again multilevel degenerative disc disease, L2/L3 prominent Schmorl nodes versus remote fractures, and scattered arteriosclerotic disease. Comment: Preliminary interpretation made by [facility]. No critical discrepancy.
== END 2021-08-13 21:47 | disposition home or self-care (01) ==
LOC: ED 18:56
DX: S32.040A Wedge compression fracture of fourth lumbar vertebra, initial encounter for closed fracture (principal); S32.050A Wedge compression fracture of fifth lumbar vertebra, initial encounter for closed fracture; V00.811A Fall from moving wheelchair (powered), initial encounter; Y92.512 Supermarket, store or market as the place of occurrence of the external cause; R51.9 Headache, unspecified; M54.2 Cervicalgia; M54.9 Dorsalgia, unspecified; J44.9 Chronic obstructive pulmonary disease, unspecified; E11.42 Type 2 diabetes mellitus with diabetic polyneuropathy; Z72.0 Tobacco use; Z79.891 Long term (current) use of opiate analgesic; Z79.4 Long term (current) use of insulin; Z79.899 Other long term (current) drug therapy
CPT/HCPCS: 70450; 72125; 72128; 72131; 96372; 99284; J1170

== ENCOUNTER 2021-11-16 19:49 | Emergency (ER) | payer MEDICARE ==
[2021-11-16] MEDS ORDERED: PROTONIX 40 MG IV IV ONE ×2 (20:28→20:32)
[2021-11-16] MEDS ORDERED: Sodium Chloride 0.9% 1000 ML 1,000 ML IV STA (20:28)
[2021-11-16] MEDS ORDERED: Zofran 4 MG/2 ML VIAL IV ONE (20:28)
[2021-11-16] MEDS ORDERED: Zofran 4 MG/2 ML VIAL ONE (20:32)
[2021-11-16] MEDS ORDERED: Sodium Chloride 0.9% 1000 ML 0 ML ONE (20:33)
--- NOTE | 2021-11-16 20:33 | ERPHSYRPT ---
- History of Present Illness Time Seen by Provider: 11/16/21 19:56 Patient Subjective Stated Complaint: pt states shehas been sick to her stomach and vomiting all day, she states the vomiting is normal for her intermittenytly for the last 2 years, but today it is worse, states her blood sugar is 444 at this time. Triage Nursing Assessment: pt alert and oiented, states she has epigastric pain that is 7/10, states she has been checking her blood sugar and it has been high, at this time blood sugar on her monitor is 444, blood pressure elevated at 185/102 that she states is her normal. Physician History: 56 years old female with history of diabetes mellitus on insulin pump presented in the ER with chief complaint of multiple episodes of nonprojectile, nonbilious vomiting since morning, is unable to hold anything down. Feels weak fatigued tired and dehydrated. Patient reports burning pain with upper abdomen more with vomiting. Does report having history of intermittent vomiting for quite some times but today it is worse that she cannot hold anything. No fever or chills reported. Patient is worried about being in DKA. Timing/Duration: today, gradual onset, worse Quality: burning Abdominal Pain Onset Location: epigastric Pain Radiation: no radiation Severity of Pain-Max: moderate Severity of Pain-Current: mild Modifying Factors: Worsens With: vomiting Associated Symptoms: fatigue, loss of appetite, nausea, vomiting Previous symptoms: same symptoms as today Allergies/Adverse Reactions: adhesive Allergy (Intermediate, Verified 11/16/21 20:04) Rash ciprofloxacin HCl [From Cipro] Allergy (Intermediate, Verified 11/16/21 20:04) Rash gatifloxacin [From Tequin] Allergy (Intermediate, Verified 11/16/21 20:04) Rash levofloxacin [From Levaquin] Allergy (Intermediate, Verified 11/16/21 20:04) Rash aspirin Allergy (Verified 11/16/21 20:04) bupropion HCl [From Wellbutrin] Allergy (Verified 11/16/21 20:04) carisoprodol [From Soma] Allergy (Verified 11/16/21 20:04) cefaclor [From Ceclor] Allergy (Verified 11/16/21 20:04) ceftibuten dihydrate [From Cedax] Allergy (Verified 11/16/21 20:04) cephalexin monohydrate [From Keflex] Allergy (Verified 11/16/21 20:04) clarithromycin [From Biaxin] Allergy (Verified 11/16/21 20:04) clotrimazole [From Lotrimin] Allergy (Verified 11/16/21 20:04) codeine [Codeine] Allergy (Verified 11/16/21 20:04) doxycycline Allergy (Verified 11/16/21 20:04) erythromycin base [Erythromycin Base] Allergy (Verified 11/16/21 20:04) gabapentin Allergy (Verified 11/16/21 20:04) ketorolac tromethamine [From Toradol] Allergy (Verified 11/16/21 20:04) loracarbef [From Lorabid] Allergy (Verified 11/16/21 20:04) meperidine HCl [From Demerol] Allergy (Verified 11/16/21 20:04) morphine Allergy (Verified 11/16/21 20:04) Norgestimate-Ethi *RETIRED-07/08/12 [From Ortho Tri-Cyclen (21)] Allergy (Verified 11/16/21 20:04) Penicillins Allergy (Verified 11/16/21 20:04) prochlorperazine edisylate [From Compazine] Allergy (Verified 11/16/21 20:04) promethazine [From Phenergan] Allergy (Verified 11/16/21 20:04) Hives promethazine HCl [From Phenergan] Allergy (Verified 11/16/21 20:04) Sulfa (Sulfonamide Antibiotics) [Sulfa(Sulfonamide Antibiotics)] Allergy (Verified 11/16/21 20:04) sumatriptan [From Imitrex] Allergy (Verified 11/16/21 20:04) haloperidol [From Haldol] Adverse Reaction (Unknown, Verified 11/16/21 20:04) hydromorphone Adverse Reaction (Unknown, Verified 11/16/21 20:04) ketorolac [From Toradol] Adverse Reaction (Unknown, Verified 11/16/21 20:04) lamotrigine [From Lamictal] Adverse Reaction (Unknown, Verified 11/16/21 20:04) sulfamethoxazole [From Bactrim] Adverse Reaction (Unknown, Verified 11/16/21 20 :04) terbinafine [From Lamisil] Adverse Reaction (Unknown, Verified 11/16/21 20:04) trimethoprim [From Bactrim] Adverse Reaction (Unknown, Verified 11/16/21 20:04) melon Adverse Reaction (Verified 11/16/21 20:04) Home Medications: Budesonide/Formoterol Fumarate [Symbicort 160-4.5 Mcg Inhaler] 2 puff IH BID 10/10/15 [History] Bumetanide [Bumex] 4 mg PO DAILY 10/10/15 [History] Cholecalciferol (Vitamin D3) [Vitamin D3] 2,000 unit PO UD 10/10/15 [History] Fenofibrate 160 mg PO DAILY 10/10/15 [History] Montelukast Sodium 25 mg PO DAILY 10/10/15 [History] Nitroglycerin 0.4 mg Tablet [Nitrostat 0.4 MG Tablet] 0.4 mg SL Q5MIN PRN MR X 3 PRN 10/10/15 [History] PANTOPRAZOLE 40 mg Tablet [Protonix 40MG Tablet] 40 mg PO DAILY 10/10/15 [History] Polyethylene Glycol 3350 17 gm [Miralax Powder 17GM PACKET] 17 gm PO UD PRN 10/10/15 [History] Potassium Chloride 20 Meq [Klor-Con 20 MEQ] 20 meq PO DAILY 10/10/15 [History] Divalproex Sodium [Divalproex Sodium ER] 500 mg PO BID 03/06/16 [History] Albuterol 2.5 mg/3 ml Neb [Proventil 2.5 mg/3 ml Neb] 1 ea IH QID PRN PRN 07/08/18 [History] Albuterol Sulfate [Proair Hfa] 2 puffs IH QID 07/08/18 [History] Rosuvastatin Calcium [Crestor] 40 mg PO DAILY 07/08/18 [History] Levothyroxine Sodium 112 Mcg [Synthroid 112 Mcg] 212 mcg PO DAILY 07/28/18 [History] Famotidine [Pepcid] 40 mg PO BID 07/18/19 [History] Fluticasone Propionate [Flonase NASAL] 2 sprays .ROUTE BID 07/18/19 [History] Diphenhydramine HCl 25 mg [Benadryl 25 mg Capsule] 25 mg PO Q4H PRN PRN 08/17/19 [History] Lisinopril 10 mg [Zestril 10 MG] 20 mg PO DAILY 08/17/19 [History] Magnesium Oxide 400 mg [Mag-Ox 400] 400 mg PO TID 08/17/19 [History] Cyclobenzaprine HCl 10 mg [Cyclobenzaprine 10 MG] 10 mg PO HS 03/31/20 [History] Erenumab-Aooe [Aimovig Autoinjector] 140 mg SQ UD 03/31/20 [History] Hydrocodone/APAP 5-325 Tab^^^ [[place] 5-325 Tablet^^^] 1 each PO QID MDD 6 03/31/20 [History] Insulin Degludec [Tresiba] 50 unit SQ TID 03/31/20 [History] Lubiprostone [Amitiza] 24 mcg PO DAILY 03/31/20 [History] Topiramate [Topamax] 50 mg PO BID 03/31/20 [History] Ondansetron [Ondansetron Odt] 8 mg PO Q6-8HPRN PRN 10/24/20 [History] Rimegepant Sulfate [Nurtec Odt] 75 mg PO Q12H PRN PRN 10/24/20 [History] Hx Tetanus, Diphtheria Vaccination/Date Given: Yes Hx Influenza Vaccination/Date Given: Yes Hx Pneumococcal Vaccination/Date Given: Yes Travel Risk - International Travel Have you traveled outside of the country in past 3 weeks: No - Coronavirus Screening Are you exhibiting any of the following symptoms?: No Close contact with a COVID-19 positive Pt in past 14-21 Days: No - Vaccine Status Have you recieved a Covid-19 vaccination: Yes [employer]: Moderna - Vaccination Dates Date of 2cond Vaccination (if applicable): unknown - Review of Systems Constitutional: Fatigue, Weakness Eyes: No Symptoms Ears, Nose, & Throat: No Symptoms Respiratory: No Symptoms Cardiac: No Symptoms Abdominal/Gastrointestinal: Abdominal Pain, Nausea, Vomiting Genitourinary Symptoms: No Symptoms Musculoskeletal: No Symptoms Skin: No Symptoms Neurological: Headache Psychological: No Symptoms Endocrine: No Symptoms Hematologic/Lymphatic: No Symptoms Immunological/Allergic: No Symptoms - Past Medical History Pertinent Past Medical History: Yes Neurological History: Migraines ENT History: Cataracts Cardiac History: Arrhythmia, Congestive Heart Failure, Other Respiratory History: Asthma, Bronchitis, COPD, Sleep Apnea Endocrine Medical History: Diabetes Type II, Hyperthyroidism Musculoskeletal History: Fibromyalgia, Osteoarthritis GI Medical History: GERD, Irritable Bowel History: Other Psycho-Social History: Anxiety, Bipolar, Depression, Other Female Reproductive Disorders: No Pertinent History Other Medical History: 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 PTSD - Past Surgical History Past Surgical History: Yes Neuro Surgical History: No Pertinent History Cardiac: Cardiac Catheterization Respiratory: No Pertinent History Gastrointestinal: Cholecystectomy Genitourinary: No Pertinent History Musculoskeletal: No Pertinent History Female Surgical History: Hysterectomy Other Surgical History: rt and lt carpal tunnel, trigger finger, tendon on right arm, ulnar nerve surgery, clipped left eye muscle, lt knee. lt shoulder, spinal block - Social History Smoking Status: Current every day smoker How long have you smoked: 45 yrs Exposure to second hand smoke: Yes Drug Use: none Patient Lives Alone: No Significant Family History: no pertinent family hx - Nursing Vital Signs Nursing Vital Signs: Initial Vital Signs Temperature 97.6 F 11/16/21 19:52 Pulse Rate 81 11/16/21 19:52 Respiratory Rate 18 11/16/21 19:52 Blood Pressure 185/102 11/16/21 19:52 O2 Sat by Pulse Oximetry 98 11/16/21 19:52 Pain Scale Pain Intensity 5 - Physical Exam General Appearance: no apparent distress, alert Eye Exam: PERRL/EOMI, eyes nml inspection Ears, Nose, Throat Exam: normal ENT inspection, TMs normal, pharynx normal, moist mucous membranes Neck Exam: normal inspection, non-tender, supple, full range of motion Respiratory Exam: normal breath sounds, lungs clear Cardiovascular Exam: regular rate/rhythm, normal heart sounds Gastrointestinal/Abdomen Exam: soft, normal bowel sounds, tenderness (Normal upper abdominal tenderness), No distention, No guarding Back Exam: normal inspection, 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 of motion Extremity Exam: normal inspection, 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 of motion, pelvis stable Neurologic Exam: alert, 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, cooperative Skin Exam: normal color SpO2 Interpretation: normal SpO2: 98 O2 Delivery: Room Air - Course EKG Interpreted by Me: RATE (82), Sinus Rhythm, NORMAL AXIS, Q-wave, Non- specific ST Changes Ordered Tests: Active Orders 24 hr Category Date Time Status Balance Wheel Screw Hole Driller STAT Care 11/16/21 21:32 Completed EKG-ER Only STAT Care 11/16/21 20:28 Completed IV Insertion STAT Care 11/16/21 20:28 Completed ABDOMEN AND PELVIS W/0 CONTRAS [CT] Stat Exams 11/16/21 20:28 Taken CBC W DIFF Stat Lab 11/16/21 20:38 Completed CMP Stat Lab 11/16/21 20:38 Completed LIPASE Stat Lab 11/16/21 20:38 Completed Lactic Acid Stat Lab 11/16/21 20:42 Completed MAGNESIUM Stat Lab 11/16/21 20:38 Completed TROPONIN Q4H Lab 11/16/21 20:38 Completed UA W/RFX CULTURE Stat Lab 11/16/21 21:55 Ordered VENOUS BLOOD GAS Stat Lab 11/16/21 20:37 Completed Medication Summary Discontinued Medications Generic Name Dose Route Start Last Admin Trade Name Freq PRN Reason Stop Dose Admin Sodium Chloride 1,000 mls @ 999 mls/hr 11/16/21 20:28 11/16/21 21:38 Sodium Chloride 0.9% 1000 Ml IV 11/16/21 21:28 Infused .Q1H1M STA Infusion Sodium Chloride Confirm 11/16/21 20:33 Sodium Chloride 0.9% 1000 Ml Administered 11/16/21 20:34 Dose 1,000 mls @ ud .ROUTE .STK-MED ONE Potassium Chloride 20 meq in 100 mls @ 50 mls/hr 11/16/21 21:29 Potassium Chloride 20 Meq In Water 100ml IV 11/16/21 23:28 STAT ONE Sodium Chloride 1,000 mls @ 125 mls/hr 11/16/21 22:00 Sodium Chloride 0.9% 1000 Ml IV 12/16/21 21:59 .Q8H LM Potassium Chloride Confirm 11/16/21 22:06 Potassium Chloride 20 Meq In Water 100ml Administered 11/16/21 22:07 Dose 100 mls @ ud IV .STK-MED ONE Sodium Chloride Confirm 11/16/21 22:06 Sodium Chloride 0.9% 1000 Ml Administered 11/16/21 22:07 Dose 1,000 mls @ ud .ROUTE .STK-MED ONE Ondansetron HCl 4 mg 11/16/21 20:28 11/16/21 20:37 Ondansetron Hcl 4 Mg/2 Ml Vial IV 11/16/21 20:29 4 mg STAT ONE Administration Ondansetron HCl Confirm 11/16/21 20:32 Ondansetron Hcl 4 Mg/2 Ml Vial Administered 11/16/21 20:33 Dose 4 mg .ROUTE .STK-MED ONE Pantoprazole Sodium 40 mg 11/16/21 20:28 11/16/21 20:37 Pantoprazole 40 Mg Vial IV 11/16/21 20:29 40 mg STAT ONE Administration Pantoprazole Sodium Confirm 11/16/21 20:32 Pantoprazole 40 Mg Vial Administered 11/16/21 20:33 Dose 40 mg IV .STK-MED ONE Potassium Chloride 40 meq 11/16/21 21:29 Potassium Chloride Tab 10 Meq Tab PO 11/16/21 21:30 STAT ONE Potassium Chloride Confirm 11/16/21 22:05 Potassium Chloride Tab 10 Meq Tab Administered 11/16/21 22:06 Dose 40 meq PO .STK-MED ONE Lab/Rad Data: Laboratory Result Diagrams 11/16/21 20:38 11/16/21 20:38 Laboratory Results 11/16/21 11/16/21 11/16/21 Range/Units 20:42 20:38 20:38 WBC (4.0-10.5) x10^3/uL RBC (4.1-5.4) x10^6/uL Hgb (12.0-16.0) g/dL Hct (35-47) % MCV (78-100) fL MCH (26-32) pg MCHC (32-36) g/dL RDW (11.5-14.0) % Plt Count (150-450) x10^3/uL MPV (7.5-11.0) fL Gran % (36.0-66.0) % Immature Gran % (Auto) (0.00-0.4) % Nucleat RBC Rel Count (0.00-0.1) % Eos # (Auto) (0-0.5) x10^3/uL Immature Gran # (Auto) (0.00-0.03) x10^3u/L Absolute Lymphs (auto) (1.0-4.6) x10^3/uL Absolute Monos (auto) (0.0-1.3) x10^3/uL Absolute Nucleated RBC (0.00-0.01) x10^3u/L Lymphocytes % (24.0-44.0) % Monocytes % (0.0-12.0) % Eosinophils % (0.00-5.0) % Basophils % (0.0-0.4) % Absolute Granulocytes (1.4-6.9) x10^3/uL Basophils # (0-0.4) x10^3/uL pO2/FiO2 Ratio % VBG pH (7.32-7.42) VBG pCO2 at Pat Temp (42-55) mm/Hg VBG pO2 at Pat Temp (25-40) mm/Hg VBG HCO3 (22-28) meq/L VBG O2 Sat (Lforinda) (95-100) VBG Base Excess (-2.0-2.0) VBG Hemoglobin VBG Carboxyhemoglobin (0.0-6.9) % T HGB POC Potassium (3.5-5.1) Sodium 126 L (137-145) mmol/L Potassium 3.3 L (3.5-5.1) mmol/L Chloride 93 L (98-107) mmol/L Carbon Dioxide 27 (22-30) mmol/L Anion Gap 9.3 (5-15) MEQ/L BUN 19 H (7-17) mg/dL Creatinine 0.84 (0.52-1.04) mg/dL Estimated GFR > 60.0 ML/MIN Glucose 432 H (74-106) mg/dL Lactic Acid 1.6 (0.4-2.0) Calcium 8.8 (8.4-10.2) mg/dL Magnesium 1.6 (1.6-2.3) mg/dL Total Bilirubin 0.30 (0.2-1.3) mg/dL AST 17 (14-36) U/L ALT 16 (0-35) U/L Alkaline Phosphatase 178 H (38-126) U/L Troponin I 0.015 (0.000-0.034) ng/mL Serum Total Protein 6.3 (6.3-8.2) g/dL Albumin 3.1 L (3.5-5.0) g/dL Lipase 29 (23-300) U/L 11/16/21 11/16/21 Range/Units 20:38 20:37 WBC 7.8 (4.0-10.5) x10^3/uL RBC 4.92 (4.1-5.4) x10^6/uL Hgb 14.3 (12.0-16.0) g/dL Hct 39.3 (35-47) % MCV 79.9 (78-100) fL MCH 29.1 (26-32) pg MCHC 36.4 H (32-36) g/dL RDW 12.7 (11.5-14.0) % Plt Count 181 (150-450) x10^3/uL MPV 11.9 H (7.5-11.0) fL Gran % 67.2 H (36.0-66.0) % Immature Gran % (Auto) 0.6 H (0.00-0.4) % Nucleat RBC Rel Count 0.0 (0.00-0.1) % Eos # (Auto) 0.11 (0-0.5) x10^3/uL Immature Gran # (Auto) 0.05 H (0.00-0.03) x10^3u/L Absolute Lymphs (auto) 2.04 (1.0-4.6) x10^3/uL Absolute Monos (auto) 0.31 (0.0-1.3) x10^3/uL Absolute Nucleated RBC 0.00 (0.00-0.01) x10^3u/L Lymphocytes % 26.3 (24.0-44.0) % Monocytes % 4.0 (0.0-12.0) % Eosinophils % 1.4 (0.00-5.0) % Basophils % 0.5 (0.0-0.4) % Absolute Granulocytes 5.21 (1.4-6.9) x10^3/uL Basophils # 0.04 (0-0.4) x10^3/uL pO2/FiO2 Ratio 21.0 % VBG pH 7.37 (7.32-7.42) VBG pCO2 at Pat Temp 50 (42-55) mm/Hg VBG pO2 at Pat Temp 26 (25-40) mm/Hg VBG HCO3 28.9 H (22-28) meq/L VBG O2 Sat (Florinda) 49.2 L (95-100) VBG Base Excess 2.7 H (-2.0-2.0) VBG Hemoglobin 15.3 VBG Carboxyhemoglobin 2.8 (0.0-6.9) % T HGB POC Potassium 3.0 L* (3.5-5.1) Sodium (137-145) mmol/L Potassium (3.5-5.1) mmol/L Chloride (98-107) mmol/L Carbon Dioxide (22-30) mmol/L Anion Gap (5-15) MEQ/L BUN (7-17) mg/dL Creatinine (0.52-1.04) mg/dL Estimated GFR ML/MIN Glucose (74-106) mg/dL Lactic Acid (0.4-2.0) Calcium (8.4-10.2) mg/dL Magnesium (1.6-2.3) mg/dL Total Bilirubin (0.2-1.3) mg/dL AST (14-36) U/L ALT (0-35) U/L Alkaline Phosphatase (38-126) U/L Troponin I (0.000-0.034) ng/mL Serum Total Protein (6.3-8.2) g/dL Albumin (3.5-5.0) g/dL Lipase (23-300) U/L - Progress Progress: improved Progress Note: 11/16/21 22:31 She is given fluids and Zofran along with Protonix, on reevaluation feeling better. She has a normal white count, chemistries showed glucose in 400s with normal bicarb and normal pH. Potassium is little on the lower side, recommended oral and IV potassium and plan was to give her some insulin but patient does not want to stay in the hospital at all. CT abdomen pelvis is positive for colitis, who recommended IV antibiotics and admission but she does not want to stay in the hospital at all and wants to leave immediately. She is not ready to wait for dose of antibiotics and oral potassium. She is not confused or altered at all. Patient states "I will come back if have any worsening". Her was also involved in decision making. Counseled pt/family regarding: lab results, diagnosis, need for follow-up, rad results - Departure Departure Disposition: AMA Clinical Impression: Hyperglycemia due to type 2 diabetes mellitus, Hypokalemia, Colitis Condition: Stable Critical Care Time: No Referrals: VAIBHAV CHURCHILL MD [Primary Care Provider] - Follow up/PCP as directed
[2021-11-16 20:40] LABS: Absolute Neutrophil Ct (ANC) 5.21 x10^3/uL (1.4-6.9); Basophil (Absolute #) 0.04 x10^3/uL (0-0.4); Eosinophil % 1.4 % (0.00-5.0); Eosinophil (Absolute #) 0.11 x10^3/uL (0-0.5); Hematocrit 39.3 % (35-47); Hemoglobin 14.3 g/dL (12.0-16.0); Lymphocyte (Absolute #) 2.04 x10^3/uL (1.0-4.6); Lymphocytes % 26.3 % (24.0-44.0); Mean Cell Volume 79.9 fL (78-100); Mean Corpuscular Hemoglobin 29.1 pg (26-32); Mean Corpuscular Hgb Concent. 36.4 g/dL (32-36); Mean Platelet Volume 11.9 fL (7.5-11.0); Monocyte (Absolute #) 0.31 x10^3/uL (0.0-1.3); Neutrophil % 67.2 % (36.0-66.0); Platelet Count 181 x10^3/uL (150-450); Red Blood Count 4.92 x10^6/uL (4.1-5.4); Red Cell Distribution Width 12.7 % (11.5-14.0); White Blood Count 7.8 x10^3/uL (4.0-10.5)
[2021-11-16 20:43] LABS: VBG BASE EXCESS 2.7 (-2.0-2.0); VBG CARBOXYHEMOGLOBIN 2.8 % T HGB (0.0-6.9); VBG HCO3- 28.9 meq/L (22-28); VBG HEMOGLOBIN 15.3; VBG O2 SATURATION 49.2 (95-100); VBG pH 7.37 (7.32-7.42)
[2021-11-16 20:54] LABS: ALBUMIN 3.1 g/dL (3.5-5.0); ALKALINE PHOSPHATASE 178 U/L (38-126); ANION GAP 9.3 MEQ/L (5-15); BLOOD UREA NITROGEN 19 mg/dL (7-17); CHLORIDE 93 mmol/L (98-107); Calcium 8.8 mg/dL (8.4-10.2); Carbon Dioxide 27 mmol/L (22-30); Creatinine 1 0.84 mg/dL (0.52-1.04); EST GLOMERULAR FILTRATION RATE > 60.0 ML/MIN; Glucose 432 mg/dL (74-106); LIPASE 29 U/L (23-300); MAGNESIUM 1.6 mg/dL (1.6-2.3); Potassium 3.3 mmol/L (3.5-5.1); SGOT/AST 17 U/L (14-36); SGPT/ALT 16 U/L (0-35); SODIUM 126 mmol/L (137-145); Total Protein 6.3 g/dL (6.3-8.2)
[2021-11-16 21:17] VITALS: BP 181/89
[2021-11-16] MEDS ORDERED: Klor Con PO ONE ×2 (21:29→22:05)
[2021-11-16] MEDS ORDERED: POTASSIUM CHLORIDE 20 mEq IN WATER 100ML 20 MEQ/100 ML BAG IV ONE (21:29)
[2021-11-16] MEDS ORDERED: Sodium Chloride 0.9% 1000 ML 1,000 ML IV SCH (22:00)
[2021-11-16] MEDS ORDERED: Sodium Chloride 0.9% 1000 ML 1,000 ML ONE (22:06)
[2021-11-16] MEDS ORDERED: POTASSIUM CHLORIDE 20 mEq IN WATER 100ML 0 ML IV ONE (22:06)
[2021-11-16 22:16] VITALS: PULSE 84
[2021-11-16 22:33] VITALS: O2SAT 98
--- NOTE | 2021-11-16 22:39 | XRAY ---
Indication: Abdomen pain, diarrhea, nausea, and vomiting. Multiple contiguous axial images obtained through the abdomen and pelvis without contrast. Comparison: September 18, 2020 Lung bases clear. Heart not enlarged. Again small hilar hernia. Noncontrasted stomach and bowel loops appear nonobstructed. Appendix not seen. Again mild diffuse scattered colonic fecal debris throughout. Cecum/ascending colon now demonstrates mild wall thickening, possible colitis. Liver again demonstrates micronodular margins as seen with cirrhosis. Cholecystectomy and hysterectomy. No free fluid/air. Spleen remains enlarged measuring 14 cm. Remaining liver, pancreas, spleen, adrenal glands, kidneys, ureters, and bladder are unremarkable for noncontrast exam. Moderate aortoiliac calcifications without AAA. Osseous structures again demonstrates mild degenerative changes throughout the spine and L2/L3 superior endplate remote fractures versus Schmorl nodes. New remote appearing L4/L5 superior fractures with approximately 50% height loss. Impression: 1. Mild ascending colon wall thickening. Rule out colitis. 2. Again hiatal hernia, cirrhosis, splenomegaly, diffuse fecal stasis, arteriosclerotic disease, and chronic bony findings. Comment: Preliminary interpretation made by [facility]. No critical discrepancy.
[2021-11-16 22:50] LABS: Appearance CLEAR (CLEAR); Bilirubin NEGATIVE (NEGATIVE); Dipstick done @ ? MAIN LAB; Epithelial Cells RARE /HPF (FEW); Glucose 500 mg/dL (NEGATIVE); Ketones NEGATIVE (NEGATIVE); Nitrite NEGATIVE (NEGATIVE); Protein,Urine Dip >=300 (Negative); RBC MODERATE Ery/ul (0-5); Urobilinogen 0.2 mg/dL (0-1)
[2021-11-16 22:51] LABS: Bacteria NONE SEEN /HPF (NEGATIVE); Urine Cultured Indicated? YES
== END 2021-11-16 22:20 | disposition left against medical advice (07) ==
LOC: ED 19:49
DX: E11.65 Type 2 diabetes mellitus with hyperglycemia (principal); E87.6 Hypokalemia; K52.9 Noninfective gastroenteritis and colitis, unspecified; R11.2 Nausea with vomiting, unspecified; R10.13 Epigastric pain; R53.1 Weakness; J44.9 Chronic obstructive pulmonary disease, unspecified; E11.42 Type 2 diabetes mellitus with diabetic polyneuropathy; Z72.0 Tobacco use; Z79.4 Long term (current) use of insulin; Z96.41 Presence of insulin pump (external) (internal); Z79.891 Long term (current) use of opiate analgesic; Z79.899 Other long term (current) drug therapy
CPT/HCPCS: 36000; 36415; 74176; 80053; 81015; 82805; 83605; 83690; 83735; 84484; 85025; 87086; 93005; 93041; 96360; 96374; 96375; 99284; J2405; J3480; A9270-GY

== ENCOUNTER 2021-12-15 14:43 | Emergency (ER) | payer MEDICARE ==
[2021-12-15 14:51] VITALS: BP 93/57; O2SAT 97
--- NOTE | 2021-12-15 14:53 | ERPHSYRPT ---
- History of Present Illness Time Seen by Provider: 12/15/21 14:51 Source: patient, EMS Exam Limitations: no limitations Physician History: This is an obese 56-year-old white female patient who is diabetic and states that she is having some problems with her insulin pump malfunctioning. Patient complains of malaise and generalized pain. Patient has a history of fibro myalgia, anxiety, bipolar disorder and morbid obesity. She also has a history of arrhythmia, CHF, asthma, bronchitis, COPD, sleep apnea, hypothyroidism, gastroesophageal reflux disease and hyperlipidemia. Patient's blood sugar on arrival to the emergency room is 408. Patient denies chest pain. She denies shortness of breath. She has no abdominal pain. Timing/Duration: today Severity: moderate Associated Symptoms: malaise, weakness, No nausea, No vomiting, No abdominal pain, No shortness of breath, No cough, No chest pain Allergies/Adverse Reactions: adhesive Allergy (Intermediate, Verified 12/15/21 14:51) Rash ciprofloxacin HCl [From Cipro] Allergy (Intermediate, Verified 12/15/21 14:51) Rash gatifloxacin [From Tequin] Allergy (Intermediate, Verified 12/15/21 14:51) Rash levofloxacin [From Levaquin] Allergy (Intermediate, Verified 12/15/21 14:51) Rash aspirin Allergy (Verified 12/15/21 14:51) bupropion HCl [From Wellbutrin] Allergy (Verified 12/15/21 14:51) carisoprodol [From Soma] Allergy (Verified 12/15/21 14:51) cefaclor [From Ceclor] Allergy (Verified 12/15/21 14:51) ceftibuten dihydrate [From Cedax] Allergy (Verified 12/15/21 14:51) cephalexin monohydrate [From Keflex] Allergy (Verified 12/15/21 14:51) clarithromycin [From Biaxin] Allergy (Verified 12/15/21 14:51) clotrimazole [From Lotrimin] Allergy (Verified 12/15/21 14:51) codeine [Codeine] Allergy (Verified 12/15/21 14:51) doxycycline Allergy (Verified 12/15/21 14:51) erythromycin base [Erythromycin Base] Allergy (Verified 12/15/21 14:51) gabapentin Allergy (Verified 12/15/21 14:51) ketorolac tromethamine [From Toradol] Allergy (Verified 12/15/21 14:51) loracarbef [From Lorabid] Allergy (Verified 12/15/21 14:51) meperidine HCl [From Demerol] Allergy (Verified 12/15/21 14:51) morphine Allergy (Verified 12/15/21 14:51) Norgestimate-Ethi *RETIRED-07/08/12 [From Ortho Tri-Cyclen (21)] Allergy (Verified 12/15/21 14:51) Penicillins Allergy (Verified 12/15/21 14:51) prochlorperazine edisylate [From Compazine] Allergy (Verified 12/15/21 14:51) promethazine [From Phenergan] Allergy (Verified 12/15/21 14:51) Hives promethazine HCl [From Phenergan] Allergy (Verified 12/15/21 14:51) Sulfa (Sulfonamide Antibiotics) [Sulfa(Sulfonamide Antibiotics)] Allergy (Verif ied 12/15/21 14:51) sumatriptan [From Imitrex] Allergy (Verified 12/15/21 14:51) haloperidol [From Haldol] Adverse Reaction (Unknown, Verified 12/15/21 14:51) hydromorphone Adverse Reaction (Unknown, Verified 12/15/21 14:51) ketorolac [From Toradol] Adverse Reaction (Unknown, Verified 12/15/21 14:51) lamotrigine [From Lamictal] Adverse Reaction (Unknown, Verified 12/15/21 14:51) sulfamethoxazole [From Bactrim] Adverse Reaction (Unknown, Verified 12/15/21 14:51) terbinafine [From Lamisil] Adverse Reaction (Unknown, Verified 12/15/21 14:51) trimethoprim [From Bactrim] Adverse Reaction (Unknown, Verified 12/15/21 14:51) melon Adverse Reaction (Verified 12/15/21 14:51) Home Medications: Budesonide/Formoterol Fumarate [Symbicort 160-4.5 Mcg Inhaler] 2 puff IH BID 10/10/15 [History] Bumetanide [Bumex] 4 mg PO DAILY 10/10/15 [History] Cholecalciferol (Vitamin D3) [Vitamin D3] 2,000 unit PO UD 10/10/15 [History] Fenofibrate 160 mg PO DAILY 10/10/15 [History] Montelukast Sodium 25 mg PO DAILY 10/10/15 [History] Nitroglycerin 0.4 mg Tablet [Nitrostat 0.4 MG Tablet] 0.4 mg SL Q5MIN PRN MR X 3 PRN 10/10/15 [History] PANTOPRAZOLE 40 mg Tablet [Protonix 40MG Tablet] 40 mg PO DAILY 10/10/15 [History] Polyethylene Glycol 3350 17 gm [Miralax Powder 17GM PACKET] 17 gm PO UD PRN 10/10/15 [History] Potassium Chloride 20 Meq [Klor-Con 20 MEQ] 20 meq PO DAILY 10/10/15 [History] Divalproex Sodium [Divalproex Sodium ER] 500 mg PO BID 03/06/16 [History] Albuterol 2.5 mg/3 ml Neb [Proventil 2.5 mg/3 ml Neb] 1 ea IH QID PRN PRN 07/08/18 [History] Albuterol Sulfate [Proair Hfa] 2 puffs IH QID 07/08/18 [History] Rosuvastatin Calcium [Crestor] 40 mg PO DAILY 07/08/18 [History] Levothyroxine Sodium 112 Mcg [Synthroid 112 Mcg] 212 mcg PO DAILY 07/28/18 [History] Famotidine [Pepcid] 40 mg PO BID 07/18/19 [History] Fluticasone Propionate [Flonase NASAL] 2 sprays .ROUTE BID 07/18/19 [History] Diphenhydramine HCl 25 mg [Benadryl 25 mg Capsule] 25 mg PO Q4H PRN PRN 08/17/19 [History] Lisinopril 10 mg [Zestril 10 MG] 20 mg PO DAILY 08/17/19 [History] Magnesium Oxide 400 mg [Mag-Ox 400] 400 mg PO TID 08/17/19 [History] Cyclobenzaprine HCl 10 mg [Cyclobenzaprine 10 MG] 10 mg PO HS 03/31/20 [History] Erenumab-Aooe [Aimovig Autoinjector] 140 mg SQ UD 03/31/20 [History] Hydrocodone/APAP 5-325 Tab^^^ [[place] 5-325 Tablet^^^] 1 each PO QID MDD 6 03/31/20 [History] Insulin Degludec [Tresiba] 50 unit SQ TID 03/31/20 [History] Lubiprostone [Amitiza] 24 mcg PO DAILY 03/31/20 [History] Topiramate [Topamax] 50 mg PO BID 03/31/20 [History] Ondansetron [Ondansetron Odt] 8 mg PO Q6-8HPRN PRN 10/24/20 [History] Rimegepant Sulfate [Nurtec Odt] 75 mg PO Q12H PRN PRN 10/24/20 [History] Hx Tetanus, Diphtheria Vaccination/Date Given: Yes Hx Influenza Vaccination/Date Given: Yes Hx Pneumococcal Vaccination/Date Given: Yes Travel Risk - International Travel Have you traveled outside of the country in past 3 weeks: No - Coronavirus Screening Are you exhibiting any of the following symptoms?: No Close contact with a COVID-19 positive Pt in past 14-21 Days: No - Vaccine Status Have you recieved a Covid-19 vaccination: Yes [employer]: Moderna - Vaccination Dates Date of 2cond Vaccination (if applicable): unknown - Review of Systems Constitutional: Weakness Eyes: No Symptoms Ears, Nose, & Throat: No Symptoms Respiratory: No Symptoms Cardiac: No Symptoms Abdominal/Gastrointestinal: No Symptoms Genitourinary Symptoms: No Symptoms Musculoskeletal: No Symptoms Skin: No Symptoms Neurological: No Symptoms Psychological: No Symptoms Endocrine: No Symptoms Hematologic/Lymphatic: No Symptoms Immunological/Allergic: No Symptoms All Other Systems: Reviewed and Negative - Past Medical History Pertinent Past Medical History: Yes Neurological History: Migraines ENT History: Cataracts Cardiac History: Arrhythmia, Congestive Heart Failure, Other Respiratory History: Asthma, Bronchitis, COPD, Sleep Apnea Endocrine Medical History: Diabetes Type II, Hyperthyroidism Musculoskeletal History: Fibromyalgia, Osteoarthritis GI Medical History: GERD, Irritable Bowel History: Other Psycho-Social History: Anxiety, Bipolar, Depression, Other Female Reproductive Disorders: No Pertinent History Other Medical History: 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 PTSD - Past Surgical History Past Surgical History: Yes Neuro Surgical History: No Pertinent History Cardiac: Cardiac Catheterization Respiratory: No Pertinent History Gastrointestinal: Cholecystectomy Genitourinary: No Pertinent History Musculoskeletal: No Pertinent History Female Surgical History: Hysterectomy Other Surgical History: rt and lt carpal tunnel, trigger finger, tendon on right arm, ulnar nerve surgery, clipped left eye muscle, lt knee. lt shoulder, spinal block - Social History Smoking Status: Current every day smoker How long have you smoked: 45 yrs Exposure to second hand smoke: Yes Drug Use: none Patient Lives Alone: No Significant Family History: no pertinent family hx - Nursing Vital Signs Nursing Vital Signs: Initial Vital Signs Temperature 96.5 F 12/15/21 14:44 Respiratory Rate 16 12/15/21 14:44 Blood Pressure 93/57 12/15/21 14:44 O2 Sat by Pulse Oximetry 97 12/15/21 14:44 Pain Scale Pain Intensity 10 - Physical Exam General Appearance: no apparent distress, alert, lethargy, obese Eye Exam: PERRL/EOMI (Mild), eyes nml inspection Ears, Nose, Throat Exam: normal ENT inspection, moist mucous membranes Neck Exam: normal inspection, non-tender, supple, full range of motion Respiratory Exam: normal breath sounds, lungs clear, airway intact, No chest tenderness, No respiratory distress Cardiovascular Exam: regular rate/rhythm, normal heart sounds, normal peripheral pulses Gastrointestinal/Abdomen Exam: soft, normal bowel sounds, No tenderness Pelvic Exam: not done Rectal Exam: not done Back Exam: normal inspection, 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 of motion, No CVA tenderness, No vertebral tenderness Extremity Exam: normal inspection, 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 of motion, pelvis stable Neurologic Exam: alert, 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, cooperative, 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 nml as tested, normal mood/affect, sensation nml Skin Exam: normal color, warm, dry Lymphatic Exam: No adenopathy SpO2 Interpretation: normal O2 Delivery: Room Air - Course Nursing assessment & vital signs reviewed: Yes Ordered Tests: Active Orders 24 hr Category Date Time Status EKG-ER Only STAT Care 12/15/21 14:57 Active IV Insertion STAT Care 12/15/21 14:57 Active AMYLASE Stat Lab 12/15/21 15:10 Completed CBC W DIFF Stat Lab 12/15/21 15:10 Received CMP Stat Lab 12/15/21 15:10 Completed LIPASE Stat Lab 12/15/21 15:10 Completed Lactic Acid Stat Lab 12/15/21 14:57 Ordered POCT GLUCOSE Stat Lab 12/15/21 14:52 Completed T4 (Thyroxine) Stat Lab 12/15/21 15:10 Received TROPONIN Q4H Lab 12/15/21 15:10 Received TROPONIN Q4H Lab 12/15/21 19:00 Ordered TROPONIN Q4H Lab 12/15/21 23:00 Ordered TSH [TSH, 3RD Generation] Stat Lab 12/15/21 15:10 Received UA W/RFX CULTURE Stat Lab 12/15/21 Ordered Medication Summary Discontinued Medications Generic Name Dose Route Start Last Admin Trade Name Fermínq PRN Reason Stop Dose Admin Sodium Chloride 1,000 mls @ 999 mls/hr 12/15/21 14:57 12/15/21 15:18 Sodium Chloride 0.9% 1000 Ml IV 12/15/21 15:57 999 mls/hr .Q1H1M STA Administration Sodium Chloride Confirm 12/15/21 15:16 Sodium Chloride 0.9% 1000 Ml Administered 12/15/21 15:17 Dose 1,000 mls @ ud .ROUTE .K-MED ONE Lab/Rad Data: Laboratory Result Diagrams 12/15/21 15:10 Laboratory Results 12/15/21 12/15/21 Range/Units 15:10 14:52 Sodium 123 L (137-145) mmol/L Potassium 4.2 (3.5-5.1) mmol/L Chloride 93 L (98-107) mmol/L Carbon Dioxide 21 L (22-30) mmol/L Anion Gap 13.1 (5-15) MEQ/L BUN 33 H (7-17) mg/dL Creatinine 1.31 H (0.52-1.04) mg/dL Estimated GFR 45.0 ML/MIN Glucose 405 H (74-106) mg/dL POC Glucometer 408 H (74 to 106) mg/dL Calcium 8.1 L (8.4-10.2) mg/dL Total Bilirubin 0.40 (0.2-1.3) mg/dL AST 15 (14-36) U/L ALT 15 (0-35) U/L Alkaline Phosphatase 176 H (38-126) U/L Serum Total Protein 5.9 L (6.3-8.2) g/dL Albumin 2.9 L (3.5-5.0) g/dL Amylase 39 (30-110) U/L Lipase 24 (23-300) U/L - Progress Progress: unchanged Progress Note: 12/15/21 15:59 Patient decided to sign out AGAINST MEDICAL ADVICE. We had obtained the lab work-up. However, her reasoning for signing out AGAINST MEDICAL ADVICE was we cannot do anything for her. She did not seem angry or upset. She made no comments that she was angry or upset. We explained to her that her condition could worsen and we could not tell her at this point whether or not she had an emergent condition or treatable condition. She was informed that she could be leaving and could possibly if her condition was emergent. She voiced that she understood and signed the AGAINST MEDICAL ADVICE form. - Departure Departure Disposition: AMA Clinical Impression: Hyperglycemia Condition: Fair Critical Care Time: No Referrals: VAIBHAV CHURCHILL MD [Primary Care Provider] - Follow up/PCP as directed Additional Instructions: Take your medication as prescribed. Return to the emergency department if you desire to complete your evaluation in the emergency department. Return if your symptoms worsen
[2021-12-15] MEDS ORDERED: Sodium Chloride 0.9% 1000 ML 1,000 ML IV STA (14:57)
[2021-12-15] MEDS ORDERED: Sodium Chloride 0.9% 1000 ML 1,000 ML ONE (15:16)
[2021-12-15 15:47] LABS: ALBUMIN 2.9 g/dL (3.5-5.0); ANION GAP 13.1 MEQ/L (5-15); BILIRUBIN,TOTAL 0.4 mg/dL (0.2-1.3); Calcium 8.1 mg/dL (8.4-10.2); Creatinine 1 1.31 mg/dL (0.52-1.04); Potassium 4.2 mmol/L (3.5-5.1); Total Protein 5.9 g/dL (6.3-8.2)
[2021-12-15 16:22] LABS: Absolute Neutrophil Ct (ANC) 2.97 x10^3/uL (1.4-6.9); Basophil (Absolute #) 0.04 x10^3/uL (0-0.4); Eosinophil % 4.3 % (0.00-5.0); Eosinophil (Absolute #) 0.27 x10^3/uL (0-0.5); Hematocrit 36.5 % (35-47); Hemoglobin 13.2 g/dL (12.0-16.0); Lymphocyte (Absolute #) 2.65 x10^3/uL (1.0-4.6); Lymphocytes % 42.3 % (24.0-44.0); Mean Cell Volume 79.7 fL (78-100); Mean Corpuscular Hemoglobin 28.8 pg (26-32); Mean Corpuscular Hgb Concent. 36.2 g/dL (32-36); Mean Platelet Volume 11.7 fL (7.5-11.0); Monocyte (Absolute #) 0.29 x10^3/uL (0.0-1.3); Monocytes % 4.6 % (0.0-12.0); Neutrophil % 47.6 % (36.0-66.0); Platelet Count 212 x10^3/uL (150-450); Red Blood Count 4.58 x10^6/uL (4.1-5.4); Red Cell Distribution Width 12.5 % (11.5-14.0); White Blood Count 6.3 x10^3/uL (4.0-10.5)
[2021-12-15 16:26] LABS: INFLUENZA A NEGATIVE (NEGATIVE); INFLUENZA B NEGATIVE (NEGATIVE); RESPIRATORY SYNCTIAL VIRUS NEGATIVE (Negative); SARS-CoV-2 Xpert Express NEGATIVE (NEGATIVE)
== END 2021-12-15 16:00 | disposition left against medical advice (07) ==
LOC: ED 14:43
DX: E11.65 Type 2 diabetes mellitus with hyperglycemia (principal); R53.81 Other malaise; J44.9 Chronic obstructive pulmonary disease, unspecified; E78.5 Hyperlipidemia, unspecified; E11.42 Type 2 diabetes mellitus with diabetic polyneuropathy; Z72.0 Tobacco use; Z79.4 Long term (current) use of insulin; Z79.899 Other long term (current) drug therapy; Z96.41 Presence of insulin pump (external) (internal); Z20.828 Contact with and (suspected) exposure to other viral communicable diseases
CPT/HCPCS: 0241U; 36000; 36415; 80053; 82150; 82947; 83605; 83690; 84436; 84443; 84484; 85025; 99283

== ENCOUNTER 2022-01-16 08:38 | Day surgery (SDC) | payer MEDICARE ==
[2012-11-04 03:21] VITALS: BP 145/78
[2022-01-16] MEDS ORDERED: Depo-Medrol 40 MG/ML IM ONE (08:39)
[2022-01-16] MEDS ORDERED: BUPIVACAINE 0.5% VIAL IJ ONE (08:39)
[2022-01-16] MEDS ORDERED: Xylocaine 1% Vial 30 ML PF IJ ONE (08:39)
[2022-01-16] MEDS ORDERED: Lactated Ringers 1,000 ML IV ONE (09:46)
[2022-01-16] MEDS ORDERED: Zofran 4 MG/2 ML VIAL ONE (10:04)
[2022-01-16] MEDS ORDERED: DIPRIVAN 200 MG/20 ML IV ONE (10:09)
--- NOTE | 2022-01-16 11:05 | XRAY ---
Indication: Left L4-S1 RFA. Intraoperative fluoroscopy provided for 24 seconds. 4 digital spot image submitted for interpretation demonstrates posterior needle tips projecting over the expected left L4-S1 nerve roots. Correlate with intraoperative findings/report.
--- NOTE | 2022-01-16 11:34 | XRAY ---
24 seconds fluoroscopy time in surgery for left L4-S1 RFA.
== END 2022-01-16 10:42 | disposition home or self-care (01) ==
LOC: SDC-PAIN 08:38
PROVIDERS: ATTEND Psychiatry & Neurology Pain Medicine
DX: M47.816 Spondylosis without myelopathy or radiculopathy, lumbar region (principal); E11.9 Type 2 diabetes mellitus without complications; Z79.899 Other long term (current) drug therapy
CPT/HCPCS: 64635; 64636; 72100; 77002; 82947; J1030; J2001; J2405; J2704

== ENCOUNTER 2022-01-29 15:17 | Emergency (ER) | payer MEDICARE ==
--- NOTE | 2022-01-29 16:06 | ERPHSYRPT ---
- History of Present Illness Historian: patient Exam Limitations: no limitations Patient Subjective Stated Complaint: PT states "I have been vomiting for two days and now I am vomiting dark blood." Triage Nursing Assessment: pt presented alert and oriented X 3, skin pwd. Pt ambulates with an upright steady gait, able to speak in clear full sentences. Pt in no apaprent respiratory distress. Pt resting comfortably on the bed. Physician History: 56 yo wf w N/V/hematemeis x 3 days. Pt w numerous medical problems and numerous medical allergies. She has sharp and burning epigastric rated 9/10 on scale. Nothing makes the pain better or worse. Pt denies diarrhea/melena/hematochezia/dysuria/hematuria/fever/cough/coryza. She is to undergo a back procedure in the morning, so all plavix has been held. Timing/Duration: day(s) (3 days) Activities at Onset: rest Quality: burning, stabbing Abdominal Pain Onset Location: epigastric Pain Radiation: no radiation Severity of Pain-Max: severe Severity of Pain-Current: severe Modifying Factors: Improves With: nothing Associated Symptoms: denies symptoms, loss of appetite, nausea, vomiting Previous symptoms: no prior history Allergies/Adverse Reactions: adhesive Allergy (Intermediate, Verified 12/15/21 14:51) Rash ciprofloxacin HCl [From Cipro] Allergy (Intermediate, Verified 12/15/21 14:51) Rash gatifloxacin [From Tequin] Allergy (Intermediate, Verified 12/15/21 14:51) Rash levofloxacin [From Levaquin] Allergy (Intermediate, Verified 12/15/21 14:51) Rash aspirin Allergy (Verified 12/15/21 14:51) bupropion HCl [From Wellbutrin] Allergy (Verified 12/15/21 14:51) carisoprodol [From Soma] Allergy (Verified 12/15/21 14:51) cefaclor [From Ceclor] Allergy (Verified 12/15/21 14:51) ceftibuten dihydrate [From Cedax] Allergy (Verified 12/15/21 14:51) cephalexin monohydrate [From Keflex] Allergy (Verified 12/15/21 14:51) clarithromycin [From Biaxin] Allergy (Verified 12/15/21 14:51) clotrimazole [From Lotrimin] Allergy (Verified 12/15/21 14:51) codeine [Codeine] Allergy (Verified 12/15/21 14:51) doxycycline Allergy (Verified 12/15/21 14:51) erythromycin base [Erythromycin Base] Allergy (Verified 12/15/21 14:51) gabapentin Allergy (Verified 12/15/21 14:51) ketorolac tromethamine [From Toradol] Allergy (Verified 12/15/21 14:51) loracarbef [From Lorabid] Allergy (Verified 12/15/21 14:51) meperidine HCl [From Demerol] Allergy (Verified 12/15/21 14:51) morphine Allergy (Verified 12/15/21 14:51) Norgestimate-Ethi *RETIRED-07/08/12 [From Ortho Tri-Cyclen (21)] Allergy (Verified 12/15/21 14:51) Penicillins Allergy (Verified 12/15/21 14:51) prochlorperazine edisylate [From Compazine] Allergy (Verified 12/15/21 14:51) promethazine [From Phenergan] Allergy (Verified 12/15/21 14:51) Hives promethazine HCl [From Phenergan] Allergy (Verified 12/15/21 14:51) Sulfa (Sulfonamide Antibiotics) [Sulfa(Sulfonamide Antibiotics)] Allergy (Verified 12/15/21 14:51) sumatriptan [From Imitrex] Allergy (Verified 12/15/21 14:51) haloperidol [From Haldol] Adverse Reaction (Unknown, Verified 12/15/21 14:51) hydromorphone Adverse Reaction (Unknown, Verified 12/15/21 14:51) ketorolac [From Toradol] Adverse Reaction (Unknown, Verified 12/15/21 14:51) lamotrigine [From Lamictal] Adverse Reaction (Unknown, Verified 12/15/21 14:51) sulfamethoxazole [From Bactrim] Adverse Reaction (Unknown, Verified 12/15/21 14:51) terbinafine [From Lamisil] Adverse Reaction (Unknown, Verified 12/15/21 14:51) trimethoprim [From Bactrim] Adverse Reaction (Unknown, Verified 12/15/21 14:51) melon Adverse Reaction (Verified 10/01/22 14:51) Home Medications: Budesonide/Formoterol Fumarate [Symbicort 160-4.5 Mcg Inhaler] 2 puff IH BID 10/10/15 [History] Bumetanide [Bumex] 4 mg PO DAILY 10/10/15 [History] Cholecalciferol (Vitamin D3) [Vitamin D3] 2,000 unit PO UD 10/10/15 [History] Fenofibrate 160 mg PO DAILY 10/10/15 [History] Montelukast Sodium 25 mg PO DAILY 10/10/15 [History] Nitroglycerin 0.4 mg Tablet [Nitrostat 0.4 MG Tablet] 0.4 mg SL Q5MIN PRN MR X 3 PRN 10/10/15 [History] PANTOPRAZOLE 40 mg Tablet [Protonix 40MG Tablet] 40 mg PO DAILY 10/10/15 [History] Polyethylene Glycol 3350 17 gm [Miralax Powder 17GM PACKET] 17 gm PO UD PRN 10/10/15 [History] Potassium Chloride 20 Meq [Klor-Con 20 MEQ] 20 meq PO DAILY 10/10/15 [History] Divalproex Sodium [Divalproex Sodium ER] 500 mg PO BID 03/06/16 [History] Albuterol 2.5 mg/3 ml Neb [Proventil 2.5 mg/3 ml Neb] 1 ea IH QID PRN PRN 07/08/18 [History] Albuterol Sulfate [Proair Hfa] 2 puffs IH QID 07/08/18 [History] Rosuvastatin Calcium [Crestor] 40 mg PO DAILY 07/08/18 [History] Levothyroxine Sodium 112 Mcg [Synthroid 112 Mcg] 212 mcg PO DAILY 07/28/18 [History] Famotidine [Pepcid] 40 mg PO BID 07/18/19 [History] Fluticasone Propionate [Flonase NASAL] 2 sprays .ROUTE BID 07/18/19 [History] Diphenhydramine HCl 25 mg [Benadryl 25 mg Capsule] 25 mg PO Q4H PRN PRN 08/17/19 [History] Lisinopril 10 mg [Zestril 10 MG] 20 mg PO DAILY 08/17/19 [History] Magnesium Oxide 400 mg [Mag-Ox 400] 400 mg PO TID 08/17/19 [History] Cyclobenzaprine HCl 10 mg [Cyclobenzaprine 10 MG] 10 mg PO HS 03/31/20 [History] Erenumab-Aooe [Aimovig Autoinjector] 140 mg SQ UD 03/31/20 [History] Hydrocodone/APAP 5-325 Tab^^^ [[place] 5-325 Tablet^^^] 1 each PO QID MDD 6 03/31/20 [History] Insulin Degludec [Tresiba] 50 unit SQ TID 03/31/20 [History] Lubiprostone [Amitiza] 24 mcg PO DAILY 03/31/20 [History] Topiramate [Topamax] 50 mg PO BID 03/31/20 [History] Ondansetron [Ondansetron Odt] 8 mg PO Q6-8HPRN PRN 10/24/20 [History] Rimegepant Sulfate [Nurtec Odt] 75 mg PO Q12H PRN PRN 10/24/20 [History] Hx Tetanus, Diphtheria Vaccination/Date Given: Yes Hx Influenza Vaccination/Date Given: Yes Hx Pneumococcal Vaccination/Date Given: Yes Immunizations Up to Date: Yes Travel Risk - International Travel Have you traveled outside of the country in past 3 weeks: No - Coronavirus Screening Are you exhibiting any of the following symptoms?: No Close contact with a COVID-19 positive Pt in past 14-21 Days: No - Vaccine Status Have you recieved a Covid-19 vaccination: Yes 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 - Vaccination Dates Date of 2cond Vaccination (if applicable): unknown - Review of Systems Constitutional: No Symptoms Eyes: No Symptoms Ears, Nose, & Throat: No Symptoms Respiratory: No Symptoms Cardiac: No Symptoms Abdominal/Gastrointestinal: No Symptoms, Nausea, Vomiting, Hematemesis Genitourinary Symptoms: No Symptoms Musculoskeletal: No Symptoms Skin: No Symptoms Neurological: No Symptoms Psychological: No Symptoms Endocrine: No Symptoms Hematologic/Lymphatic: No Symptoms Immunological/Allergic: No Symptoms - Past Medical History Pertinent Past Medical History: Yes Neurological History: Migraines ENT History: Cataracts Cardiac History: Arrhythmia, Congestive Heart Failure, Other Respiratory History: Asthma, Bronchitis, COPD, Sleep Apnea Endocrine Medical History: Diabetes Type II, Hyperthyroidism Musculoskeletal History: Fibromyalgia, Osteoarthritis GI Medical History: GERD, Irritable Bowel History: Other Psycho-Social History: Anxiety, Bipolar, Depression, Other Female Reproductive Disorders: No Pertinent History Other Medical History: 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 PTSD - Past Surgical History Past Surgical History: Yes Neuro Surgical History: No Pertinent History Cardiac: Cardiac Catheterization Respiratory: No Pertinent History Gastrointestinal: Cholecystectomy Genitourinary: No Pertinent History Musculoskeletal: No Pertinent History Female Surgical History: Hysterectomy Other Surgical History: rt and lt carpal tunnel, trigger finger, tendon on right arm, ulnar nerve surgery, clipped left eye muscle, lt knee. lt shoulder, spinal block - Social History Smoking Status: Current every day smoker How long have you smoked: 45 yrs Exposure to second hand smoke: Yes Drug Use: none Patient Lives Alone: No Significant Family History: no pertinent family hx - Nursing Vital Signs Nursing Vital Signs: Initial Vital Signs Temperature 97.1 F 01/29/22 15:34 Pulse Rate 94 H 01/29/22 15:34 Respiratory Rate 20 01/29/22 15:34 Blood Pressure 165/84 01/29/22 15:34 O2 Sat by Pulse Oximetry 100 01/29/22 15:34 Pain Scale Pain Intensity 9 Mildly hypertensive and tachypneic - Physical Exam General Appearance: no apparent distress Eye Exam: PERRL/EOMI, eyes nml inspection Ears, Nose, Throat Exam: normal ENT inspection, TMs normal, pharynx normal, moist mucous membranes Neck Exam: normal inspection, non-tender, supple, full range of motion, No meningismus, No mass, No Brudzinski, No Kernig's Respiratory Exam: normal breath sounds, lungs clear, respiratory distress, airway intact Cardiovascular Exam: regular rate/rhythm, normal heart sounds, normal peripheral pulses, capillary refill <2 sec, No murmur Gastrointestinal/Abdomen Exam: soft, normal bowel sounds, tenderness (Moderate epigastric TTP wo guarding or rebound) Back Exam: normal inspection, 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 of motion, No CVA tenderness Extremity Exam: normal inspection, 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 of motion Neurologic Exam: alert, 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, cooperative, 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-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 nml as tested, normal mood/affect, nml station & gait, sensation nml Skin Exam: normal color, warm, dry, No rash Lymphatic Exam: No adenopathy SpO2 Interpretation: normal SpO2: 100 O2 Delivery: Room Air - Course Nursing assessment & vital signs reviewed: Yes - CT Exams Abdomen/Pelvis CT Interpretation: Discussed w/radiologist (Constipation- impaction/cirrhosis/splenomegaly) Ordered Tests: Active Orders 24 hr Category Date Time Status ABDOMEN AND PELVIS W/0 CONTRAS [CT] Stat Exams 01/29/22 15:54 Taken AMYLASE Stat Lab 01/29/22 16:08 Completed CBC W DIFF Stat Lab 01/29/22 16:08 Completed CMP Stat Lab 01/29/22 16:08 Completed CULTURE,URINE Stat Lab 01/29/22 15:55 Received LIPASE Stat Lab 01/29/22 16:08 Completed PROTIME WITH INR Stat Lab 01/29/22 16:08 Completed PTT Stat Lab 01/29/22 16:08 Completed TROPONIN Q4H Lab 01/29/22 16:08 Completed TROPONIN Q4H Lab 01/29/22 20:00 Ordered TROPONIN Q4H Lab 01/30/22 00:00 Ordered UA W/RFX CULTURE Stat Lab 01/29/22 15:55 Completed Medication Summary Discontinued Medications Generic Name Dose Route Start Last Admin Trade Name Freq PRN Reason Stop Dose Admin Droperidol 1.25 mg 01/29/22 16:35 01/29/22 16:44 Droperidol 5 Mg/2 Ml Vial IM 01/29/22 16:36 1.25 mg STAT ONE Administration Droperidol Confirm 01/29/22 16:37 Droperidol 5 Mg/2 Ml Vial Administered 01/29/22 16:38 Dose 5 mg .ROUTE .STK-MED ONE Lab/Rad Data: Laboratory Result Diagrams 01/29/22 16:08 01/29/22 16:08 Laboratory Results 01/29/22 01/29/22 01/29/22 Range/Units 16:08 16:08 16:08 WBC (4.0-10.5) x10^3/uL RBC (4.1-5.4) x10^6/uL Hgb (12.0-16.0) g/dL Hct (35-47) % MCV (78-100) fL MCH (26-32) pg MCHC (32-36) g/dL RDW (11.5-14.0) % Plt Count (150-450) x10^3/uL MPV (7.5-11.0) fL Gran % (36.0-66.0) % Immature Gran % (Auto) (0.00-0.4) % Nucleat RBC Rel Count (0.00-0.1) % Eos # (Auto) (0-0.5) x10^3/uL Immature Gran # (Auto) (0.00-0.03) x10^3u/L Absolute Lymphs (auto) (1.0-4.6) x10^3/uL Absolute Monos (auto) (0.0-1.3) x10^3/uL Absolute Nucleated RBC (0.00-0.01) x10^3u/L Lymphocytes % (24.0-44.0) % Monocytes % (0.0-12.0) % Eosinophils % (0.00-5.0) % Basophils % (0.0-0.4) % Absolute Granulocytes (1.4-6.9) x10^3/uL Basophils # (0-0.4) x10^3/uL PT 10.8 (9.4-12.5) SECONDS INR 1.02 (0.8-3.0) APTT 25.3 (25.1-36.5) SECONDS Sodium 128 L (137-145) mmol/L Potassium 3.5 (3.5-5.1) mmol/L Chloride 94 L (98-107) mmol/L Carbon Dioxide 27 (22-30) mmol/L Anion Gap 9.9 (5-15) MEQ/L BUN 26 H (7-17) mg/dL Creatinine 1.08 H (0.52-1.04) mg/dL Estimated GFR 56.2 ML/MIN Glucose 148 H (74-106) mg/dL Calcium 9.3 (8.4-10.2) mg/dL Total Bilirubin 0.30 (0.2-1.3) mg/dL AST 17 (14-36) U/L ALT 19 (0-35) U/L Alkaline Phosphatase 125 (38-126) U/L Troponin I < 0.012 (0.000-0.034) ng/mL Serum Total Protein 7.7 (6.3-8.2) g/dL Albumin 3.7 (3.5-5.0) g/dL Amylase 64 (30-110) U/L Lipase 13 L (23-300) U/L Urinalys Dipstick Clnc Urine Color (YELLOW) Urine Appearance (CLEAR) Urine pH (5-6) Ur Specific [place] (1.005-1.025) POC Urine Protein Conf (Negative) Urine Ketones (NEGATIVE) Urine Nitrite (NEGATIVE) Urine Bilirubin (NEGATIVE) Urine Urobilinogen (0-1) mg/dL Urine Leukocytes (NEGATIVE) Urine WBC (Auto) (0-5) /HPF Urine RBC (Auto) (0-2) /HPF U Epithel Cells (Auto) (FEW) /HPF Urine Bacteria (Auto) (NEGATIVE) /HPF Urine RBC (0-5) Joseluis/ul Urine Mucus (Auto) (NEGATIVE) /HPF Ur Culture Indicated? Urine Glucose (NEGATIVE) mg/dL 01/29/22 01/29/22 Range/Units 16:08 15:55 WBC 8.6 (4.0-10.5) x10^3/uL RBC 5.50 H (4.1-5.4) x10^6/uL Hgb 15.9 (12.0-16.0) g/dL Hct 45.2 (35-47) % MCV 82.2 (78-100) fL MCH 28.9 (26-32) pg MCHC 35.2 (32-36) g/dL RDW 12.5 (11.5-14.0) % Plt Count 247 (150-450) x10^3/uL MPV 10.9 (7.5-11.0) fL Gran % 71.7 H (36.0-66.0) % Immature Gran % (Auto) 0.7 H (0.00-0.4) % Nucleat RBC Rel Count 0.0 (0.00-0.1) % Eos # (Auto) 0.10 (0-0.5) x10^3/uL Immature Gran # (Auto) 0.06 H (0.00-0.03) x10^3u/L Absolute Lymphs (auto) 1.92 (1.0-4.6) x10^3/uL Absolute Monos (auto) 0.33 (0.0-1.3) x10^3/uL Absolute Nucleated RBC 0.00 (0.00-0.01) x10^3u/L Lymphocytes % 22.3 L (24.0-44.0) % Monocytes % 3.8 (0.0-12.0) % Eosinophils % 1.2 (0.00-5.0) % Basophils % 0.3 (0.0-0.4) % Absolute Granulocytes 6.18 (1.4-6.9) x10^3/uL Basophils # 0.03 (0-0.4) x10^3/uL PT (9.4-12.5) SECONDS INR (0.8-3.0) APTT (25.1-36.5) SECONDS Sodium (137-145) mmol/L Potassium (3.5-5.1) mmol/L Chloride (98-107) mmol/L Carbon Dioxide (22-30) mmol/L Anion Gap (5-15) MEQ/L BUN (7-17) mg/dL Creatinine (0.52-1.04) mg/dL Estimated GFR ML/MIN Glucose (74-106) mg/dL Calcium (8.4-10.2) mg/dL Total Bilirubin (0.2-1.3) mg/dL AST (14-36) U/L ALT (0-35) U/L Alkaline Phosphatase (38-126) U/L Troponin I (0.000-0.034) ng/mL Serum Total Protein (6.3-8.2) g/dL Albumin (3.5-5.0) g/dL Amylase (30-110) U/L Lipase (23-300) U/L Urinalys Dipstick Clnc MAIN LAB Urine Color YELLOW (YELLOW) Urine Appearance CLEAR (CLEAR) Urine pH 5.5 (5-6) Ur Specific [place] 1.025 (1.005-1.025) POC Urine Protein Conf >=300 A (Negative) Urine Ketones TRACE A (NEGATIVE) Urine Nitrite NEGATIVE (NEGATIVE) Urine Bilirubin NEGATIVE (NEGATIVE) Urine Urobilinogen 0.2 (0-1) mg/dL Urine Leukocytes NEGATIVE (NEGATIVE) Urine WBC (Auto) 3-5 A (0-5) /HPF Urine RBC (Auto) 6-10 A (0-2) /HPF U Epithel Cells (Auto) RARE (FEW) /HPF Urine Bacteria (Auto) MODERATE A (NEGATIVE) /HPF Urine RBC LARGE A (0-5) Joseluis/ul Urine Mucus (Auto) SLIGHT A (NEGATIVE) /HPF Ur Culture Indicated? YES Urine Glucose >=1000 A (NEGATIVE) mg/dL - Progress Progress: improved Progress Note: 01/29/22 18:08 1.25mg IM Droperidol w improvement Counseled pt/family regarding: lab results, diagnosis, need for follow-up, rad results - Departure Departure Disposition: Home Clinical Impression: Constipation, UTI (urinary tract infection) Condition: Stable Critical Care Time: No Referrals: VAIBHAV CHURCHILL MD [Primary Care Provider] - Follow up/PCP as directed Instructions: Severe Abdominal Pain, Adult (DC), Constipation, Adult (DC), Fecal Impaction (DC), Urinary Tract Infection, Adult (DC) Additional Instructions: Fluids Fleets enemas at home Continue with constipation meds Follow up with your family MD in 1-2 days Return to ER for increasing pain or temperature greater than 100.5 Prescriptions: Nitrofurantoin Monohyd/M-Cryst [Macrobid 100 mg Capsule] 100 mg PO BID 5 Days #10 cap
[2022-01-29 16:09] LABS: Bacteria MODERATE /HPF (NEGATIVE); Epithelial Cells RARE /HPF (FEW); Mucus SLIGHT /HPF (NEGATIVE)
[2022-01-29 16:10] LABS: Appearance CLEAR (CLEAR); Bilirubin NEGATIVE (NEGATIVE); Dipstick done @ ? MAIN LAB; Glucose >=1000 mg/dL (NEGATIVE); Ketones TRACE (NEGATIVE); Nitrite NEGATIVE (NEGATIVE); Ph 5.5 (5-6); Protein,Urine Dip >=300 (Negative); RBC LARGE Ery/ul (0-5); Specific Gravity 1.025 (1.005-1.025); Urobilinogen 0.2 mg/dL (0-1)
[2022-01-29 16:11] LABS: Urine Cultured Indicated? YES
[2022-01-29 16:14] LABS: Absolute Neutrophil Ct (ANC) 6.18 x10^3/uL (1.4-6.9); Basophil (Absolute #) 0.03 x10^3/uL (0-0.4); Eosinophil % 1.2 % (0.00-5.0); Hematocrit 45.2 % (35-47); Hemoglobin 15.9 g/dL (12.0-16.0); Lymphocyte (Absolute #) 1.92 x10^3/uL (1.0-4.6); Lymphocytes % 22.3 % (24.0-44.0); Mean Cell Volume 82.2 fL (78-100); Mean Corpuscular Hemoglobin 28.9 pg (26-32); Mean Corpuscular Hgb Concent. 35.2 g/dL (32-36); Mean Platelet Volume 10.9 fL (7.5-11.0); Monocyte (Absolute #) 0.33 x10^3/uL (0.0-1.3); Monocytes % 3.8 % (0.0-12.0); Neutrophil % 71.7 % (36.0-66.0); Platelet Count 247 x10^3/uL (150-450); Red Cell Distribution Width 12.5 % (11.5-14.0); White Blood Count 8.6 x10^3/uL (4.0-10.5)
[2022-01-29 16:30] LABS: ALBUMIN 3.7 g/dL (3.5-5.0); ANION GAP 9.9 MEQ/L (5-15); BILIRUBIN,TOTAL 0.3 mg/dL (0.2-1.3); Calcium 9.3 mg/dL (8.4-10.2); Creatinine 1 1.08 mg/dL (0.52-1.04); EST GLOMERULAR FILTRATION RATE 56.2 ML/MIN; Potassium 3.5 mmol/L (3.5-5.1); Total Protein 7.7 g/dL (6.3-8.2)
[2022-01-29 16:39] VITALS: PULSE 90
[2022-01-29 16:39] LABS: INR 1.02 (0.8-3.0); PROTIME 10.8 SECONDS (9.4-12.5); PTT 25.3 SECONDS (25.1-36.5)
[2022-01-29 18:23] VITALS: BP 160/72; O2SAT 98
--- NOTE | 2022-01-30 08:38 | XRAY ---
Indication: Vomiting and constipation 3 days. History IBS. Multiple contiguous axial images obtained through the abdomen and pelvis without contrast. Comparison: November 16, 2021 Lung bases clear of infiltrate and effusion. Heart not enlarged. Again hiatal hernia with partial intrathoracic stomach versus esophagitis. There is now small fluid in the visualized mid esophagus favoring GERD. Noncontrasted stomach and bowel loops appear nonobstructed. Appendix not seen. Worsening moderate diffuse scattered colonic fecal debris throughout with now mild rectal impaction. No free fluid/air. Grossly stable cirrhotic liver, splenomegaly, nonobstructing right renal punctate calculus, cholecystectomy, and hysterectomy. Remaining pancreas, adrenal glands, kidneys, ureters, and bladder are unremarkable for noncontrast exam. Again moderate scattered aortoiliac calcifications without AAA. Osseous structures again demonstrates mild degenerative changes of the spine, L2/L3 Schmorl nodes, and remote L4/L4 superior endplate fractures. There are again multiple bilateral gluteal calcified injection granulomas. Impression: 1. Worsening moderate diffuse fecal stasis with now mild rectal impaction. 2. Again hiatal hernia with partial intrathoracic stomach/esophagitis. New findings GERD. 3. Chronic findings including cirrhosis without ascites, splenomegaly, nonobstructing right renal punctate calculus, and chronic bony findings.
== END 2022-01-29 18:24 | disposition home or self-care (01) ==
LOC: ED 15:17
DX: K59.00 Constipation, unspecified (principal); N39.0 Urinary tract infection, site not specified; K92.0 Hematemesis; R10.13 Epigastric pain; E11.9 Type 2 diabetes mellitus without complications; J44.9 Chronic obstructive pulmonary disease, unspecified; Z72.0 Tobacco use; Z79.4 Long term (current) use of insulin; Z79.899 Other long term (current) drug therapy; Z79.02 Long term (current) use of antithrombotics/antiplatelets
CPT/HCPCS: 36415; 74176; 80053; 81015; 82150; 83690; 84484; 85025; 85610; 85730; 87086; 96372; 99283

== ENCOUNTER 2022-04-30 08:19 | Emergency (ER) | payer MEDICARE ==
[2022-04-30] MEDS ORDERED: Zofran 4 MG/2 ML VIAL IV ONE (08:50)
[2022-04-30] MEDS ORDERED: ENALAPRILAT 2.5 MG INJECTION IV ONE (08:51)
[2022-04-30] MEDS ORDERED: Zofran 4 MG/2 ML VIAL ONE (09:08)
--- NOTE | 2022-04-30 09:14 | ERPHSYRPT ---
- History of Present Illness Time Seen by Provider: 04/30/22 08:30 Historian: patient, EMS, old records Exam Limitations: no limitations Patient Subjective Stated Complaint: C/O chest pain that started a few hours ago. Patient denies pain moving/radiating anywhere. States it is a heavy feeling in the center of her chest. Triage Nursing Assessment: Patient brought in by ambulance. She is alert and oriented. NO SOB. Able to SAMUELS WNL; patient moved self from ambulance cot to bed. 1+ pitting edema to BLE. No JVD. Heart rate normal. Physician History: This is a 56-year-old white female patient of Dr. Akhtar and genetic technologist Dr. Colmenares who was brought in by ambulance service to the emergency department because of chest pain that occurred 3 hours prior to arrival. It is described as nonradiating pressure in the substernal, central chest. Patient also sees Dr. Garcia for chronic, multiple pain conditions and Dr. Shah for renal issues. Patient is obese. She has been diagnosed with arrhythmia and congestive heart failure symptoms but no prior diagnosis of coronary artery disease. Patient has been nauseated in the last week and has been off her medications per her report because of this. Patient states that she periodically has times of nausea that last several days. Patient has a history of diabetes, fibromyalgia, anxiety, bipolar disorder, asthma, COPD, bronchitis, hyperlipidemia, hypothyroidism, hypertension and gastroesophageal reflux disease. Patient did receive nitroglycerin from the paramedics but is refusing aspirin because she is allergic to aspirin per her report. Patient has multiple drug allergies and is supposed to be taking multiple medications. Timing/Duration: today Quality: pressure Location: substernal, central Chest Pain Radiation: no radiation Severity of Pain-Max: moderate Severity of Pain-Current: mild (To moderate) Associated Symptoms: nausea, No abdominal pain, No shortness of breath Prior Chest Pain/Cardiac Workup: cardiac cath (Negative per patient report) Nitro Today/Relief: 0.4 mg x 1, provided by EMS Aspirin Treatment Today: no aspirin today Allergies/Adverse Reactions: adhesive Allergy (Intermediate, Verified 04/30/22 08:21) Rash ciprofloxacin HCl [From Cipro] Allergy (Intermediate, Verified 04/30/22 08:21) Rash gatifloxacin [From Tequin] Allergy (Intermediate, Verified 04/30/22 08:21) Rash levofloxacin [From Levaquin] Allergy (Intermediate, Verified 04/30/22 08:21) Rash aspirin Allergy (Verified 04/30/22 08:21) bupropion HCl [From Wellbutrin] Allergy (Verified 04/30/22 08:21) carisoprodol [From Soma] Allergy (Verified 04/30/22 08:21) cefaclor [From Ceclor] Allergy (Verified 04/30/22 08:21) ceftibuten dihydrate [From Cedax] Allergy (Verified 04/30/22 08:21) cephalexin monohydrate [From Keflex] Allergy (Verified 04/30/22 08:21) clarithromycin [From Biaxin] Allergy (Verified 04/30/22 08:21) clotrimazole [From Lotrimin] Allergy (Verified 04/30/22 08:21) codeine [Codeine] Allergy (Verified 04/30/22 08:21) doxycycline Allergy (Verified 04/30/22 08:21) erythromycin base [Erythromycin Base] Allergy (Verified 04/30/22 08:21) gabapentin Allergy (Verified 04/30/22 08:21) ketorolac tromethamine [From Toradol] Allergy (Verified 04/30/22 08:21) loracarbef [From Lorabid] Allergy (Verified 04/30/22 08:21) meperidine HCl [From Demerol] Allergy (Verified 04/30/22 08:21) morphine Allergy (Verified 04/30/22 08:21) Norgestimate-Ethi *RETIRED-07/08/12 [From Ortho Tri-Cyclen (21)] Allergy (Verified 04/30/22 08:21) Penicillins Allergy (Verified 04/30/22 08:21) prochlorperazine edisylate [From Compazine] Allergy (Verified 04/30/22 08:21) promethazine [From Phenergan] Allergy (Verified 04/30/22 08:21) Hives promethazine HCl [From Phenergan] Allergy (Verified 04/30/22 08:21) Sulfa (Sulfonamide Antibiotics) [Sulfa(Sulfonamide Antibiotics)] Allergy (Verified 04/30/22 08:21) sumatriptan [From Imitrex] Allergy (Verified 04/30/22 08:21) haloperidol [From Haldol] Adverse Reaction (Unknown, Verified 04/30/22 08:21) hydromorphone Adverse Reaction (Unknown, Verified 04/30/22 08:21) ketorolac [From Toradol] Adverse Reaction (Unknown, Verified 04/30/22 08:21) lamotrigine [From Lamictal] Adverse Reaction (Unknown, Verified 04/30/22 08:21) sulfamethoxazole [From Bactrim] Adverse Reaction (Unknown, Verified 04/30/22 08:21) terbinafine [From Lamisil] Adverse Reaction (Unknown, Verified 04/30/22 08:21) trimethoprim [From Bactrim] Adverse Reaction (Unknown, Verified 04/30/22 08:21) melon Adverse Reaction (Verified 04/30/22 08:21) Home Medications: Budesonide/Formoterol Fumarate [Symbicort 160-4.5 Mcg Inhaler] 2 puff IH BID 10/10/15 [History] Bumetanide [Bumex] 4 mg PO DAILY 10/10/15 [History] Cholecalciferol (Vitamin D3) [Vitamin D3] 2,000 unit PO UD 10/10/15 [History] Fenofibrate 160 mg PO DAILY 10/10/15 [History] Montelukast Sodium 25 mg PO DAILY 10/10/15 [History] Nitroglycerin 0.4 mg Tablet [Nitrostat 0.4 MG Tablet] 0.4 mg SL Q5MIN PRN MR X 3 PRN 10/10/15 [History] PANTOPRAZOLE 40 mg Tablet [Protonix 40MG Tablet] 40 mg PO DAILY 10/10/15 [History] Polyethylene Glycol 3350 17 gm [Miralax Powder 17GM PACKET] 17 gm PO UD PRN 10/10/15 [History] Potassium Chloride 20 Meq [Klor-Con 20 MEQ] 20 meq PO DAILY 10/10/15 [History] Divalproex Sodium [Divalproex Sodium ER] 500 mg PO BID 03/06/16 [History] Albuterol 2.5 mg/3 ml Neb [Proventil 2.5 mg/3 ml Neb] 1 ea IH QID PRN PRN 07/08/18 [History] Albuterol Sulfate [Proair Hfa] 2 puffs IH QID 07/08/18 [History] Rosuvastatin Calcium [Crestor] 40 mg PO DAILY 07/08/18 [History] Levothyroxine Sodium 112 Mcg [Synthroid 112 Mcg] 212 mcg PO DAILY 07/28/18 [History] Famotidine [Pepcid] 40 mg PO BID 07/18/19 [History] Fluticasone Propionate [Flonase NASAL] 2 sprays .ROUTE BID 07/18/19 [History] Diphenhydramine HCl 25 mg [Benadryl 25 mg Capsule] 25 mg PO Q4H PRN PRN 08/17/19 [History] Lisinopril 10 mg [Zestril 10 MG] 20 mg PO DAILY 08/17/19 [History] Magnesium Oxide 400 mg [Mag-Ox 400] 400 mg PO TID 08/17/19 [History] Cyclobenzaprine HCl 10 mg [Cyclobenzaprine 10 MG] 10 mg PO HS 03/31/20 [History] Erenumab-Aooe [Aimovig Autoinjector] 140 mg SQ UD 03/31/20 [History] Hydrocodone/APAP 5-325 Tab^^^ [[place] 5-325 Tablet^^^] 1 each PO QID MDD 6 03/31/20 [History] Insulin Degludec [Tresiba] 50 unit SQ TID 03/31/20 [History] Lubiprostone [Amitiza] 24 mcg PO DAILY 03/31/20 [History] Topiramate [Topamax] 50 mg PO BID 03/31/20 [History] Ondansetron [Ondansetron Odt] 8 mg PO Q6-8HPRN PRN 10/24/20 [History] Rimegepant Sulfate [Nurtec Odt] 75 mg PO Q12H PRN PRN 10/24/20 [History] Hx Tetanus, Diphtheria Vaccination/Date Given: Yes Hx Influenza Vaccination/Date Given: No Hx Pneumococcal Vaccination/Date Given: Yes (prevnar 13) Immunizations Up to Date: Yes Travel Risk - International Travel Have you traveled outside of the country in past 3 weeks: No - Coronavirus Screening Are you exhibiting any of the following symptoms?: No Close contact with a COVID-19 positive Pt in past 14-21 Days: No - Vaccine Status Have you recieved a Covid-19 vaccination: Yes [employer]: Moderna - Vaccination Dates Date of 2cond Vaccination (if applicable): 2020 - Review of Systems Constitutional: No Symptoms Eyes: No Symptoms Ears, Nose, & Throat: No Symptoms Respiratory: No Symptoms Cardiac: Chest Pain Abdominal/Gastrointestinal: No Symptoms Genitourinary Symptoms: No Symptoms Musculoskeletal: No Symptoms Skin: No Symptoms Neurological: No Symptoms Psychological: No Symptoms Endocrine: No Symptoms Hematologic/Lymphatic: No Symptoms Immunological/Allergic: No Symptoms All Other Systems: Reviewed and Negative - Past Medical History Pertinent Past Medical History: Yes Neurological History: Migraines ENT History: Cataracts Cardiac History: Arrhythmia, Congestive Heart Failure, Other Respiratory History: Asthma, Bronchitis, COPD, Sleep Apnea Endocrine Medical History: Diabetes Type II, Hyperthyroidism Musculoskeletal History: Fibromyalgia, Osteoarthritis GI Medical History: GERD, Irritable Bowel History: Other Psycho-Social History: Anxiety, Bipolar, Depression, Other Female Reproductive Disorders: No Pertinent History Other Medical History: 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 lt shoulder, spinal block - Social History Smoking Status: Current every day smoker How long have you smoked: 46 years Exposure to second hand smoke: Yes Drug Use: none Patient Lives Alone: No (room air) Significant Family History: no pertinent family hx - Nursing Vital Signs Nursing Vital Signs: Initial Vital Signs Temperature 98 F 04/30/22 08:21 Pulse Rate 75 04/30/22 08:21 Respiratory Rate 23 04/30/22 08:21 Blood Pressure 164/81 04/30/22 08:21 O2 Sat by Pulse Oximetry 100 04/30/22 08:21 Pain Scale Pain Intensity 5 - Physical Exam General Appearance: no apparent distress, alert, anxiety, obese Eye Exam: PERRL/EOMI, eyes nml inspection Ears, Nose, Throat Exam: normal ENT inspection, moist mucous membranes Neck Exam: normal inspection, non-tender, supple, full range of motion Respiratory Exam: normal breath sounds, chest tenderness (Described as substernal, central, nonradiating pressure), lungs clear, airway intact, No respiratory distress Cardiovascular Exam: regular rate/rhythm, normal heart sounds, normal peripheral pulses Gastrointestinal/Abdomen Exam: soft, normal bowel sounds, No tenderness Pelvic Exam: not done Rectal Exam: not done Back Exam: normal inspection, 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 of motion, No CVA tenderness, No vertebral tenderness Extremity Exam: normal inspection, 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 of motion, pelvis stable Neurologic Exam: alert, 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, cooperative, sleeve tailor II-XII nml as tested, normal mood/affect, sensation nml Skin Exam: normal color, warm, dry Lymphatic Exam: No adenopathy SpO2 Interpretation: normal SpO2: 100 O2 Delivery: Room Air - Course Nursing assessment & vital signs reviewed: Yes EKG Interpreted by Me: RATE (78), Sinus Rhythm, NORMAL AXIS, NORMAL INTERVALS, NORMAL QRS, NORMAL ST-T, Other (No acute ischemic changes on today's EKG. This EKG was interpreted by me) Ordered Tests: Active Orders 24 hr Category Date Time Status Evaporator STAT Care 04/30/22 08:50 Active EKG-ER Only STAT Care 04/30/22 08:50 Active IV Insertion STAT Care 04/30/22 08:50 Active Pulse Oximetry (ED) STAT Care 04/30/22 08:50 Active CHEST 1 VIEW (PORTABLE) Stat Exams 04/30/22 08:50 Completed BMP Stat Lab 04/30/22 11:22 Ordered CBC W DIFF Stat Lab 04/30/22 09:10 Completed CMP Stat Lab 04/30/22 08:50 Completed D-DIMER QUANTITATIVE Stat Lab 04/30/22 09:10 Completed NT PRO BNPII Stat Lab 04/30/22 08:50 Completed T4 (Thyroxine) Stat Lab 04/30/22 08:50 Completed TROPONIN Q4H Lab 04/30/22 09:10 Completed TROPONIN Q4H Lab 04/30/22 13:00 Ordered TROPONIN Q4H Lab 04/30/22 17:00 Ordered TSH, 3RD Generation Stat Lab 04/30/22 08:50 Completed Medication Summary Discontinued Medications Generic Name Dose Route Start Last Admin Trade Name Freq PRN Reason Stop Dose Admin Enalaprilat 1.25 mg 04/30/22 08:51 Enalaprilat 2.5 Mg Injection IV 04/30/22 08:52 STAT ONE Sodium Chloride 500 mls @ 500 mls/hr 04/30/22 10:21 Sodium Chloride 0.9% 500 Ml IV 04/30/22 11:20 .Q1H ONE Ondansetron HCl 4 mg 04/30/22 08:50 04/30/22 09:10 Ondansetron Hcl 4 Mg/2 Ml Vial IV 04/30/22 08:51 4 mg STAT ONE Administration Ondansetron HCl Confirm 04/30/22 09:08 Ondansetron Hcl 4 Mg/2 Ml Vial Administered 04/30/22 09:09 Dose 4 mg .ROUTE .STK-MED ONE Lab/Rad Data: Laboratory Result Diagrams 04/30/22 09:10 04/30/22 08:50 Laboratory Results 04/30/22 04/30/22 04/30/22 Range/Units 09:10 09:10 09:10 WBC 4.6 (4.0-10.5) x10^3/uL RBC 3.52 L (4.1-5.4) x10^6/uL Hgb 10.3 L (12.0-16.0) g/dL Hct 29.6 L (35-47) % MCV 84.1 (78-100) fL MCH 29.3 (26-32) pg MCHC 34.8 (32-36) g/dL RDW 12.7 (11.5-14.0) % Plt Count 141 L (150-450) x10^3/uL MPV 11.0 (7.5-11.0) fL Gran % 55.9 (36.0-66.0) % Immature Gran % (Auto) 0.9 H (0.00-0.4) % Nucleat RBC Rel Count 0.0 (0.00-0.1) % Eos # (Auto) 0.15 (0-0.5) x10^3/uL Immature Gran # (Auto) 0.04 H (0.00-0.03) x10^3u/L Absolute Lymphs (auto) 1.53 (1.0-4.6) x10^3/uL Absolute Monos (auto) 0.30 (0.0-1.3) x10^3/uL Absolute Nucleated RBC 0.00 (0.00-0.01) x10^3u/L Lymphocytes % 33.1 (24.0-44.0) % Monocytes % 6.5 (0.0-12.0) % Eosinophils % 3.2 (0.00-5.0) % Basophils % 0.4 (0.0-0.4) % Absolute Granulocytes 2.58 (1.4-6.9) x10^3/uL Basophils # 0.02 (0-0.4) x10^3/uL D-Dimer 0.91 H* (0.0-0.50) mg/L Sodium (137-145) mmol/L Potassium (3.5-5.1) mmol/L Chloride (98-107) mmol/L Carbon Dioxide (22-30) mmol/L Anion Gap (5-15) MEQ/L BUN (7-17) mg/dL Creatinine (0.52-1.04) mg/dL Estimated GFR ML/MIN Glucose (74-106) mg/dL Calcium (8.4-10.2) mg/dL Total Bilirubin (0.2-1.3) mg/dL AST (14-36) U/L ALT (0-35) U/L Alkaline Phosphatase (38-126) U/L Troponin I < 0.012 (0.000-0.034) ng/mL NT-Pro-B Natriuret Pep (<300) pg/mL Serum Total Protein (6.3-8.2) g/dL Albumin (3.5-5.0) g/dL Thyroxine (T4) (5.53-10.96) ug/dL TSH 3rd Generation (0.47-4.68) mIU/L 04/30/22 Range/Units 08:50 WBC (4.0-10.5) x10^3/uL RBC (4.1-5.4) x10^6/uL Hgb (12.0-16.0) g/dL Hct (35-47) % MCV (78-100) fL MCH (26-32) pg MCHC (32-36) g/dL RDW (11.5-14.0) % Plt Count (150-450) x10^3/uL MPV (7.5-11.0) fL Gran % (36.0-66.0) % Immature Gran % (Auto) (0.00-0.4) % Nucleat RBC Rel Count (0.00-0.1) % Eos # (Auto) (0-0.5) x10^3/uL Immature Gran # (Auto) (0.00-0.03) x10^3u/L Absolute Lymphs (auto) (1.0-4.6) x10^3/uL Absolute Monos (auto) (0.0-1.3) x10^3/uL Absolute Nucleated RBC (0.00-0.01) x10^3u/L Lymphocytes % (24.0-44.0) % Monocytes % (0.0-12.0) % Eosinophils % (0.00-5.0) % Basophils % (0.0-0.4) % Absolute Granulocytes (1.4-6.9) x10^3/uL Basophils # (0-0.4) x10^3/uL D-Dimer (0.0-0.50) mg/L Sodium 123 L (137-145) mmol/L Potassium 3.7 (3.5-5.1) mmol/L Chloride 94 L (98-107) mmol/L Carbon Dioxide 25 (22-30) mmol/L Anion Gap 7.4 (5-15) MEQ/L BUN 32 H (7-17) mg/dL Creatinine 1.22 H (0.52-1.04) mg/dL Estimated GFR 48.8 ML/MIN Glucose 97 (74-106) mg/dL Calcium 8.1 L (8.4-10.2) mg/dL Total Bilirubin 0.20 (0.2-1.3) mg/dL AST 26 (14-36) U/L ALT 26 (0-35) U/L Alkaline Phosphatase 173 H (38-126) U/L Troponin I (0.000-0.034) ng/mL NT-Pro-B Natriuret Pep 2900 (<300) pg/mL Serum Total Protein 6.5 (6.3-8.2) g/dL Albumin 3.0 L (3.5-5.0) g/dL Thyroxine (T4) 5.85 (5.53-10.96) ug/dL TSH 3rd Generation 20.200 H (0.47-4.68) mIU/L - Progress Progress: improved Air Movement: good Progress Note: 04/30/22 11:41 Patient wants to leave AMA. Patient states that she does not have a home to go to after 14 May and is in need of following up with individuals to see if she can move in with them. Patient states that she is under a lot of stress and feels that that is what may be causing her symptoms. I did review the results of the studies with the patient that have returned. However, I discussed with the patient the need to have further testing including a BMP and a CTA of the chest. I discussed the risk of her leaving AGAINST MEDICAL ADVICE including worsening symptoms and . Patient understands and she will sign an AMA f orm. Blood Culture(s) Obtained: No Antibiotics given: No Counseled pt/family regarding: lab results, diagnosis, need for follow-up, rad results Medical Desision Making - External Record(s) Reviewed Records reviewed as a part of evaluation & management: Inpatient, EMS - Discussion of managment Reviewed:: Test results, Need for additional workup - Social Determinants of Health Patient's diagnosis & treatment plan are significantly: Unemployed, housing insecurity Limited access to: transportation - Diagnostic Testing Diagnostic Testing: Diagnostic tests were ordered,analyzed, and reviewed by me and used in my me dical decision making for this patient. Radiologic studies (if ordered) were read by me initially then discussed with the radiologist . - Risk of complications The pt has a mod risk of morbidity or mortality based on: Diagnosis or treatment limited by SDOH - Departure Departure Disposition: AMA Clinical Impression: Chest pain, Hyponatremia, Elevated brain natriuretic peptide (BNP) level Condition: Stable Critical Care Time: No Referrals: VAIBHAV AKHTAR MD [Primary Care Provider] - Follow up/PCP as directed Additional Instructions: Return to the emergency department symptoms worsen. Call your primary care provider today to make arrangements for follow-up appointment.
[2022-04-30 09:19] LABS: Absolute Neutrophil Ct (ANC) 2.58 x10^3/uL (1.4-6.9); BASOPHIL % 0.4 % (0.0-0.4); Basophil (Absolute #) 0.02 x10^3/uL (0-0.4); Eosinophil % 3.2 % (0.00-5.0); Eosinophil (Absolute #) 0.15 x10^3/uL (0-0.5); Hematocrit 29.6 % (35-47); Hemoglobin 10.3 g/dL (12.0-16.0); IMMATURE GRAN # 0.04 x10^3u/L (0.00-0.03); IMMATURE GRAN % 0.9 % (0.00-0.4); Lymphocyte (Absolute #) 1.53 x10^3/uL (1.0-4.6); Lymphocytes % 33.1 % (24.0-44.0); Mean Cell Volume 84.1 fL (78-100); Mean Corpuscular Hemoglobin 29.3 pg (26-32); Mean Corpuscular Hgb Concent. 34.8 g/dL (32-36); Monocytes % 6.5 % (0.0-12.0); Neutrophil % 55.9 % (36.0-66.0); Platelet Count 141 x10^3/uL (150-450); Red Blood Count 3.52 x10^6/uL (4.1-5.4); Red Cell Distribution Width 12.7 % (11.5-14.0); White Blood Count 4.6 x10^3/uL (4.0-10.5)
--- NOTE | 2022-04-30 09:23 | XRAY ---
Indication: Chest pain. Comparison: August 17, 2019 Portable chest remains inflated and clear. Heart not enlarged. Bony thorax intact again with mild degenerative changes. No new/acute findings.
[2022-04-30 10:05] LABS: ANION GAP 7.4 MEQ/L (5-15); BILIRUBIN,TOTAL 0.2 mg/dL (0.2-1.3); Calcium 8.1 mg/dL (8.4-10.2); Creatinine 1 1.22 mg/dL (0.52-1.04); EST GLOMERULAR FILTRATION RATE 48.8 ML/MIN; Potassium 3.7 mmol/L (3.5-5.1); T4 (Thyroxine) 5.85 ug/dL (5.53-10.96); TSH, 3RD Generation 20.2 mIU/L (0.47-4.68); Total Protein 6.5 g/dL (6.3-8.2)
[2022-04-30 10:20] VITALS: PULSE 69
[2022-04-30] MEDS ORDERED: Sodium Chloride 0.9% 500 ML 500 ML IV ONE (10:21)
[2022-04-30 11:23] VITALS: BP 123/64
[2022-04-30 11:44] VITALS: O2SAT 100
== END 2022-04-30 12:04 | disposition left against medical advice (07) ==
LOC: ED 08:19
DX: R07.9 Chest pain, unspecified (principal); E87.1 Hypo-osmolality and hyponatremia; R79.89 Other specified abnormal findings of blood chemistry; R11.0 Nausea; I11.0 Hypertensive heart disease with heart failure; E11.40 Type 2 diabetes mellitus with diabetic neuropathy, unspecified; E78.5 Hyperlipidemia, unspecified; Z79.4 Long term (current) use of insulin; Z79.899 Other long term (current) drug therapy; Z72.0 Tobacco use; Z59.811 Housing instability, housed, with risk of homelessness; Z56.0 Unemployment, unspecified; Z59.82 Transportation insecurity
CPT/HCPCS: 36415; 71045; 80053; 83880; 84436; 84443; 84484; 85025; 85379; 93005; 93041; 94760; 96374; 99284; J2405